=== PATIENT | female | born 1950 | race Caucasian/White ===

== ENCOUNTER 2017-09-06 10:26 | Observation (INO) | payer MEDICARE, OTHER, SELFPAY ==
[2017-09-06] VITALS (13 sets, daily range): BP systolic 102–158; BP diastolic 56–82; PULSE 61–95; RESP 16–18; TEMP 36.5–36.7; O2SAT 96–100; BMI 42.7; BMI 43.1
--- NOTE | 2017-09-06 10:44 | EKG12_ITS ---
Test Reason : SOB Blood Pressure : / mmHG Vent. Rate : 064 BPM Atrial Rate : 064 BPM P-R Int : 182 ms QRS Dur : 134 ms QT Int : 428 ms P-R-T Axes : -07 -45 096 degrees QTc Int : 441 ms Normal sinus rhythm Left axis deviation Left ventricular hypertrophy with QRS widening and repolarization abnormality Abnormal ECG Confirmed by GILMAR MCDONNELL, MAIN ([id number]), publishing editor FABRICE VILLA ([id number]) on 09/09/2017 8:46:03 AM Referred By: SANTOSH Confirmed By:MAIN SCHAFER MD
[2017-09-06 10:57] LABS: Mucous, Urine 0 SEEN /hpf (<or=2+); Red Blood Cells-Urine 0 SEEN /hpf (0-5); Squamous Epithelial Cells - UA 0 SEEN /hpf (5-10)
[2017-09-06 10:59] LABS: Color, Urine Yellow (Yellow); Glucose, Dipstick Normal (Normal); Ketone-Dipstick 5 mg/dl (Negative); Leukocyte Esterase-Dipstick 500 /ul (Negative); Nitrite-Dipstick Negative (Negative); Occult Blood-Urine 250 /ul (Negative); Protein-Dipstick 100 mg/dl (Negative); Specific Gravity, Urine 1.015 (1.002-1.030); Urine Bilirubin Dipstick Negative (Negative); Urine Clarity Cloudy (Clear); Urine Urobilinogen 4 mg/dl (Normal)
[2017-09-06] MEDS: Ipratropium/Albuterol Sulfate 3 ML AMPUL.NEB INHALATION ×4 (10:59→23:34)
[2017-09-06 11:09] LABS: Bacteria RARE /hpf (None Seen); White Blood Cells >100 SEEN /hpf (0-5)
[2017-09-06] MEDS: MethylPREDNISolone 125 MG/2 ML Vial IV (11:13)
[2017-09-06 11:15] LABS: Absolute Lymphocyte Count 1.13 X10^3/ul (0.83-4.51); Absolute Neutrophil Count 14.1 X10^3/uL (2.0-7.7); Basophil# 0.03 X10^3/uL; Basophil% 0.2 % (0-1); Eosinophil# 0.05 X10^3/uL; Eosinophils% 0.3 % (0-5); Hematocrit 32.7 % (37-47); Lymphocyte # 1.13 X10^3/ul (4.0); Lymphocyte % 6.7 % (19-41); Mean Corp Hgb Conc 33.6 g/gl (32-36); Mean Corpuscular Hgb 30.1 pg (27.0-32.0); Mean Corpuscular Volume 89.6 fL (81-99); Mean Platelet Vol. 9.5 fl (6.2-12.0); Monocyte% 8.9 % (0-10); Neutrophil # 14.08 X10^3/uL (2.7-7.7); Neutrophil % 83.4 % (47-70); POSITIVE COUNT NO; POSITIVE DIFFERENTIAL NO; POSITIVE MORPHOLOGY NO; Platelet Count 289 K/mm3 (150-450); RBC Distribution Width CV 14.5 % (11.6-14.6); RBC Distribution Width SD 47.9 fl (35.1-43.9); Red Blood Count 3.65 M/mm3 (4.2-5.4); White Blood Count 16.9 K/mm3 (4.4-11.0)
--- NOTE | 2017-09-06 11:22 | RAD_ITS ---
STUDY: X-RAY CHEST REASON FOR EXAM: Female, 67 years old. Cough, shortness of breath weakness history of [place] CABG stents TECHNIQUE: PA and lateral views of the chest. COMPARISON: April 22, 2016 chest x-ray FINDINGS: The lungs are clear and expanded. There is no demonstrated pleural abnormality. Sternal cerclage wires and vascular clips are present from a prior sternotomy and coronary artery bypass graft procedure (CABG). Normal mediastinum and alban. Normal visualized pulmonary arteries. There is atherosclerotic tortuosity of the aortic arch and descending thoracic aorta. There are diffuse degenerative changes of the visualized thoracic spine. Normal visualized ribs, clavicles, and shoulders. There is no demonstrated abnormality of the visualized soft tissue structures of the upper abdomen. RAD/Chest PA and Lateral IMPRESSION: Degenerative changes, as described above. Status post sternotomy. No demonstrated acute cardiopulmonary process. Electronically Signed: Iram Asif MD at 12:04 EDT Tel , Service support ,
[2017-09-06 11:28] LABS: Anion Gap 14 (5-15); BUN 39 mg/dL (7-18); BUN/Creat Ratio 21.9 RATIO (10-20); Calcium,Total 9.1 mg/dL (8.5-10.1); Chloride 109 mmol/L (98-107); Creatinine, Serum 1.78 mg/dL (0.55-1.02); EST Glomerular Filtration Rate 30 mL/min (>60); Est Glom Filt Rate - Afr Amer 36 mL/min (>60); Estimated Creatinine Clearance 23.92 ml/min; Glucose 154 mg/dL (74-106); Potassium 3.5 mmol/L (3.5-5.1); Sodium Level 139 mmol/L (136-145)
--- NOTE | 2017-09-06 11:54 | ED.VISSUMM ---
- ER Visit Summary Date of Service: 09/06/17 Chief Complaint: [] History of Present Illness: The patient is a 67 F ending with cough, shortness of breath, fever, chills, and body aches for the past 2 days. She was recently diagnosed with COPD and has been using breathing treatments at home without resolution of her symptoms. She denies chest pain or lower extremity pain/swelling. She denies a history of heart failure but does have a history of CABG and stent placement in the past. Physical Examination: She is in mild respiratory distress. She is speaking in broken sentences. She has wheezing in all lung bojorquez. No tenderness along the lower extremity venous system or palpable cords. Normal pulses in all extremities. Normal neurologic and mental status examination. No rash. No meningeal signs. Test Results: X-ray was negative for infiltrate. She has a significant leukocytosis and denies recent steroids. Urine had leukocytes but no bacteria. She denies current UTI symptoms and has no abdominal pain or flank pain. Flu swab was negative but clinically, she does have flulike symptoms so a false negative is certainly possible. She was given breathing treatments and feels somewhat better but is still quite dyspneic and unable to ambulate across the hallway without becoming severely distressed. She does not appear safe to be discharged home at this time. Her lactic acid is 2 so she was given IV fluids as well. The case was discussed with the hospitalist and she was admitted to PCU. Emergency Department Course and Treatment: Admit to PCU Treatment Plan: Admit Disposition: Admit Impression: Initial encounter COPD exacerbation This note was generated with [employer] dictation software. It may contain incorrect words, spelling, and punctuation that were not noted in review of the chart prior to signing ED Disposition - Plan for ED Patient: Disposition: Acute Care Hospital [facility] Chief Complaint: Shortness of Breath
--- NOTE | 2017-09-06 12:43 | ED.RN ---
PT WAS SOB AND EASILY TIRED WITH WALKING
--- NOTE | 2017-09-06 14:17 | HP.PCM_ITS ---
Problem List (1) Acute exacerbation of chronic obstructive pulmonary disease (COPD) Status: Acute (2) Hyperlipidemia Status: Chronic Qualifiers: Hyperlipidemia type: unspecified Qualified Code(s): E78.5 - Hyperlipidemia , unspecified (3) Hypertension Status: Chronic Qualifiers: Hypertension type: essential hypertension Qualified Code(s): I10 - Essential (primary) hypertension (4) S/P coronary artery stent placement Status: Chronic (5) COPD (chronic obstructive pulmonary disease) Status: Chronic Qualifiers: Emphysema type: unspecified History of Present Illness Date of Admission: 09/06/17 Chief Complaint: Shortness of breath, chills, generalised aches - 1 week The patient is a 67 year old F with past medical history of CAD status post CABG , stents, COPD, hypertension, hyperlipidemia comes in with a week history of generalized fatigue, aches, and progressive shortness of breath associated with cough. Patient denied any runny nose, sore throat, chest pain, dizziness, or palpitations. She denied any sick contacts. She however feels very short of breath rest and worse with exertion. Has not been able to eat or drink much since. Vitals in the ED was stable, patient was said to be very dyspneic on exertion even though SPO2 stayed above 92. CXR is negative for any acute cardiopulmonary process Past Medical History Past Medical History (Chronic Problems): Chronic Problems COPD (chronic obstructive pulmonary disease) (Chronic) Hyperlipidemia (Chronic) Hypertension (Chronic) S/P coronary artery stent placement (Chronic) Allergies promethazine HCl [From Phenergan] Allergy (Verified 09/06/17 10:27) Itching Home Medications: Ambulatory Orders Medication Instructions Recorded Aspirin E.C. [Ecotrin] 81 mg PO DAILY@0800 08/02/13 Furosemide [Lasix] 20 mg PO DAILY 08/02/13 Metoprolol Tartrate [Lopressor 50 mg PO BID 08/02/13 (beta uche)] Nitroglycerin [Nitrostat] 0.4 mg SUBLINGUAL Q5M PRN 08/02/13 Ramipril [Altace] 10 mg PO BID 08/02/13 Simvastatin [Zocor] 40 mg PO QHS 08/02/13 Spironolactone [Aldactone] 25 mg PO DAILY 08/02/13 Venlafaxine HCl [Effexor] 37.5 mg PO BID 08/02/13 Venlafaxine HCl [Effexor] 100 mg PO BID 10/10/14 Clopidogrel Bisulfate [Plavix] 75 mg PO DAILY 05/24/16 Pantoprazole Sodium [Protonix] 40 mg PO DAILY 05/24/16 Surgical History: adenoidectomy, cholecystectomy, herniorrhaphy Psychiatric History: No pertinent psych hx [employer] History: No pertinent P[employer] history Lives: With Family Smoking Status: Never smoker Tobacco Use: Non-smoker Alcohol: None Drugs: None - *Family History Maternal History Items: Cancer - lung, Heart Disease Paternal History Items: Cancer - liver Review of Systems Constitutional: Reports: Anorexia, Chills, Malaise, Weakness, Fatigue. Denies: Fever, Weight Change Eyes: Denies: Blurred vision, Cataracts, Conjunctivae Inflammation, Pain, Redness, Vision Change HEENT: Denies: Difficulty Hearing, Difficulty Swallowing, Head Aches, Hearing Changes, Sinus Congestion, Sinus Drainage, Sore Throat Cardiovascular: Denies: Chest Pain, Claudication, Chest Pressure, Orthopnea, Palpitations, Paroxysmal Noc. Dyspnea, Syncope Respiratory: Denies: Cough, Shortness of breath at rest, Sputum production Gastrointestinal: Denies: Abdominal Pain, Constipation, Hematemesis, Hematochezia, Nausea, Vomiting Genitourinary: Denies: Dysuria, Frequency Gynecological: Denies: Breast symptoms, Excessively long or heavy periods Musculoskeletal: Reports: Muscle pain. Denies: Hand Pain, Joint Pain, Joint stiffness, Joint swelling, Joint Tenderness Skin: Denies: Dryness, Jaundice, Rash, Wounds Neurological: Denies: Balance problems, Difficulty swallowing, Focal weakness, Numbness, Tingling, Tremor, Seizures Psychiatric: Denies: Anxiety, Depression, Homicidal Ideations, Suicidal Ideations Hematologic/ Lymphatic: Denies: Easy Bruising, Easy Bleeding VTE Information - Inpt Only VTE Present on Admission: No VTE Pharm Prophylaxis ordered?: Yes Patient Problems: Active and Suspected Problems Acute exacerbation of chronic obstructive pulmonary disease (COPD) (Acute) - Physical Exam General: Alert, Oriented x3, Cooperative, No apparent distress HEENT: Atraumatic, PERRLA, EOMI, Normocephalic Oral: Moist Mucosa Neck: Supple Lungs: Clear to auscultation, Normal air movement Cardiovascular: Regular rate, Regular Rhythm, Normal S1, Normal S2, No murmurs Abdomen: Bowel Sounds Present, Soft, Non Tender, Non-Distended, No Hepato- splenomegaly Extremities: No edema Skin: No rashes, No breakdown Musculoskeletal: No Tenderness to Palpation of Joints or Extremities Lymphatic: No Cervical, Supraclavicular, or Inguinal Adenopathy Neurological: Cranial nerves II-XII grossly intact Psych/Mental Status: Normal Affect, Appropriate Vital Signs Temp Pulse Resp BP Pulse Ox 98.0 F 61 18 102/56 L 96 09/06/17 10:27 09/06/17 12:19 09/06/17 12:19 09/06/17 12:19 09/06/17 12:19 Oxygen Delivery Method Room Air Weight: 106.141 kg Body Mass Index (BMI) 42.7 Microbiology Past 72 Hours 09/06/17 11:15 Influenza Types A,B Direct FA (SHANA) - Final Mucosa - Nasopharyngeal Laboratory Tests Past 24 Hrs 09/06/17 09/06/17 09/06/17 10:40 11:00 11:00 WBC 16.9 H RBC 3.65 L Hgb 11.0 L Hct 32.7 L MCV 89.6 MCH 30.1 MCHC 33.6 RDW 14.5 RDW Differential 47.9 H Plt Count 289 MPV 9.5 Immature Gran % (Auto) 0.500 Neut % (Auto) 83.4 H Lymph % (Auto) 6.7 L [place] % (Auto) 8.9 Eos % (Auto) 0.3 Baso % (Auto) 0.2 Absolute Neuts (auto) 14.1 H Absolute Lymphs (auto) 1.13 Total Counted Not Reportable Sodium 139 Potassium 3.5 Chloride 109 H Carbon Dioxide 16.0 L Anion Gap 14 BUN 39 H Creatinine 1.78 H Estim Creat Clear Calc 23.92 Est GFR (MDRD) Af Amer 36 L Est GFR (MDRD) Non-Af 30 L BUN/Creatinine Ratio 21.9 H Glucose 154 H Lactic Acid Calcium 9.1 Troponin I < 0.02 B-Natriuretic Peptide Urine Color Yellow Urine Clarity Cloudy Urine pH 6.0 Ur Specific [place] 1.015 Urine Protein 100 H Urine Glucose (UA) Normal Urine Ketones 5 H Urine Occult Blood 250 H Urine Nitrite Negative Urine Bilirubin Negative Urine Urobilinogen 4 H Ur Leukocyte Esterase 500 H Urine RBC 0 SEEN Urine WBC >100 SEEN Ur Squamous Epith Cells 0 SEEN Urine Bacteria RARE Urine Mucus 0 SEEN 09/06/17 09/06/17 11:00 13:04 WBC RBC Hgb Hct MCV MCH MCHC RDW RDW Differential Plt Count MPV Immature Gran % (Auto) Neut % (Auto) Lymph % (Auto) [place] % (Auto) Eos % (Auto) Baso % (Auto) Absolute Neuts (auto) Absolute Lymphs (auto) Total Counted Sodium Potassium Chloride Carbon Dioxide Anion Gap BUN Creatinine Estim Creat Clear Calc Est GFR (MDRD) Af Amer Est GFR (MDRD) Non-Af BUN/Creatinine Ratio Glucose Lactic Acid 2.0 Calcium Troponin I B-Natriuretic Peptide 218.0 H Urine Color Urine Clarity Urine pH Ur Specific [place] Urine Protein Urine Glucose (UA) Urine Ketones Urine Occult Blood Urine Nitrite Urine Bilirubin Urine Urobilinogen Ur Leukocyte Esterase Urine RBC Urine WBC Ur Squamous Epith Cells Urine Bacteria Urine Mucus Assessment/Plan Active and Suspected Problems Acute exacerbation of chronic obstructive pulmonary disease (COPD) (Acute) 67 year old F with past medical history of CAD status post CABG, stents, COPD, hypertension, hyperlipidemia comes in with a week history of generalized fatigue , aches, and progressive shortness of breath associated with cough. 1. Acute COPD exacerbation, mild, patient will be admitted to observation, breathing treatments, IV steroids, IV Levaquin 2. Leucocytosis, unclear etiology, repeat chest x-ray in a.m. to rule out pneumonia 3. Acute kidney injury in a patient with CKD stage III, secondary to dehydration , would give IV fluids, repeat BMP in a.m. 4. Non-gap metabolic acidosis secondary to acute kidney injury, repeat labs in am 5. CAD s/p CABG, stents, on aspirin, Plavix, beta-blockers, nitro as needed 6. Hypertension, on spironolactone, ramipril, both of which are on hold on account of acute kidney injury,, would continue on metoprolol, will continue to monitor vitals closely, would add hydralazine as needed. 7. Hyperlipidemia, on statins which is on hold on account of acute kidney injury, will resume when renal function improves 8. DVT prophylaxis with heparin subcu Code Visit Inpatient E&M: 93117 Init Hosp L2
--- NOTE | 2017-09-06 14:18 | NURSING ---
MED SURG ACUTE COPD EXAC PAINTSIL
--- NOTE | 2017-09-06 14:20 | NURSING ---
DR DOUGLAS IN ER
[2017-09-06] MEDS: 0.9% Normal Saline 1,000 ML 75 ML IV (16:06)
[2017-09-06] MEDS: 0.9% NaCl Peripheral Flush Adult/Peds IV (16:08)
[2017-09-06 17:06] LABS: Reflex Lactate? Y
[2017-09-06] MEDS: levoFLOXacin IV 500 MG/100 ML BAG 100 MG IV (17:36)
[2017-09-06] MEDS: guaiFENesin 600 MG Tablet PO (22:49)
[2017-09-06] MEDS: Venlafaxine HCl 75 MG Tablet 37.5 MG PO (22:49)
[2017-09-06] MEDS: Metoprolol Tartrate 50 MG Tablet PO (22:50)
[2017-09-07] VITALS (12 sets, daily range): BP systolic 111–132; BP diastolic 58–70; PULSE 67–95; RESP 16–18; TEMP 36.7–37.1; O2SAT 90–100
[2017-09-07] MEDS: LORazepam 0.5 MG Tablet PO ×2 (01:00→12:01)
[2017-09-07] MEDS: Ipratropium/Albuterol Sulfate 3 ML AMPUL.NEB INHALATION ×2 (03:02→07:04)
[2017-09-07 06:51] LABS: Absolute Lymphocyte Count 0.96 X10^3/ul (0.83-4.51); Absolute Neutrophil Count 13.6 X10^3/uL (2.0-7.7); Basophil# 0.02 X10^3/uL; Basophil% 0.1 % (0-1); Hematocrit 29.5 % (37-47); Hemoglobin 10.1 g/dl (12.0-15.0); Lymphocyte # 0.96 X10^3/ul (4.0); Lymphocyte % 6.2 % (19-41); Mean Corp Hgb Conc 34.2 g/gl (32-36); Mean Corpuscular Hgb 30.4 pg (27.0-32.0); Mean Corpuscular Volume 88.9 fL (81-99); Monocyte# 0.78 X10^3/uL; Monocyte% 5.1 % (0-10); Neutrophil # 13.56 X10^3/uL (2.7-7.7); Neutrophil % 87.8 % (47-70); Platelet Count 331 K/mm3 (150-450); RBC Distribution Width CV 14.3 % (11.6-14.6); RBC Distribution Width SD 45.3 fl (35.1-43.9); Red Blood Count 3.32 M/mm3 (4.2-5.4); White Blood Count 15.4 K/mm3 (4.4-11.0)
[2017-09-07 06:54] LABS: POSITIVE COUNT NO; POSITIVE DIFFERENTIAL NO; POSITIVE MORPHOLOGY NO
[2017-09-07 07:21] LABS: ALB/GLOB Ratio 0.5 RATIO (0.9-2.4); AST(SGOT) 24 U/L (15-37); Alanine Aminotransfer ALT/SGPT 50 U/L (13-56); Albumin, Serum 2.3 g/dL (3.2-5.0); Alkaline Phosphatase 175 U/L (45-117); Anion Gap 13 (5-15); BUN 38 mg/dL (7-18); BUN/Creat Ratio 25.3 RATIO (10-20); Calcium,Total 8.6 mg/dL (8.5-10.1); Chloride 107 mmol/L (98-107); EST Glomerular Filtration Rate 37 mL/min (>60); Est Glom Filt Rate - Afr Amer 44 mL/min (>60); Estimated Creatinine Clearance 28.39 ml/min; Globulin 4.2 g/dL (2.2-4.2); Glucose 197 mg/dL (74-106); Potassium 3.2 mmol/L (3.5-5.1); Protein, Total 6.5 g/dL (6.4-8.2); Sodium Level 136 mmol/L (136-145)
--- NOTE | 2017-09-07 07:58 | RAD_ITS ---
STUDY: X-RAY CHEST REASON FOR EXAM: Female, 67 years old. Fever TECHNIQUE: PA and lateral views of the chest. COMPARISON: September 06, 2017, April 22, 2016, September 30, 2014. Chest x-ray FINDINGS: The lung markings appear relatively stable when compared to the prior study. The lungs are somewhat hyperinflated and hyperlucent. There is no demonstrated pleural abnormality. Sternal cerclage wires are present from a prior sternotomy. Normal mediastinum and alban. Normal visualized pulmonary arteries. Normal visualized aortic arch and descending thoracic aorta. Normal visualized thoracic spine. Normal visualized ribs, clavicles, and shoulders. There is no demonstrated abnormality of the visualized soft tissue structures of the upper abdomen. RAD/Chest PA and Lateral IMPRESSION: Status post sternotomy. The lung markings appear Stable with slight blunting of the right cardiophrenic angle which likely represents focal atelectasis and/or prominent cardiac fat pad. No visualized acute focal infiltrate. Electronically Signed: Iram Asif MD at 12:14 EDT Tel , Service support ,
[2017-09-07] MEDS: Aspirin E.C. 81 MG Tablet PO (08:49)
[2017-09-07] MEDS: Metoprolol Tartrate 50 MG Tablet PO (09:32)
[2017-09-07] MEDS: Venlafaxine HCl 75 MG Tablet 37.5 MG PO (09:33)
[2017-09-07] MEDS: guaiFENesin 600 MG Tablet PO (09:34)
[2017-09-07] MEDS: Pantoprazole Sodium 40 MG Tablet PO (09:35)
[2017-09-07] MEDS: Clopidogrel Bisulfate 75 MG Tablet PO (09:35)
--- NOTE | 2017-09-07 13:13 | DCINST_ITS ---
- Discharge Diagnoses Current Active Problems: Current Active and Chronic Problems Acute exacerbation of chronic obstructive pulmonary disease (COPD) (Acute) COPD (chronic obstructive pulmonary disease) (Chronic) Reason(s) for Visit for Discharge Instructions: Shortness of breath You will use the following diet at home:: Calorie/Carbohydrate Controlled ( specify 1200, 1400, etc), Cardiac Your food should be the consistency of: Regular Your liquids should be the consistency of: Regular/Thin Discharge Activity: Return to Normal Activity Additional Instructions: Take all your medications as prescribed. Continue to hydrate your self. Do not take your water pill or lasix until you have repeated your blood work and your PCP gives you the ok to continue. Continue to use incentive spirometer Allergies/Adverse Reactions: Allergies promethazine HCl [From Phenergan] Allergy (Verified 09/06/17 10:27) Itching Medications to take at Discharge Aspirin E.C. [Ecotrin] 81 mg PO DAILY@0800 08/02/13 Metoprolol Tartrate [Lopressor (beta uche)] 50 mg PO BID 08/02/13 Nitroglycerin [Nitrostat] 0.4 mg SUBLINGUAL Q5M PRN 08/02/13 Ramipril [Altace] 10 mg PO BID 08/02/13 Simvastatin [Zocor] 40 mg PO QHS 08/02/13 Venlafaxine HCl [Effexor] 37.5 mg PO BID 08/02/13 Venlafaxine HCl [Effexor] 100 mg PO BID 10/10/14 Clopidogrel Bisulfate [Plavix] 75 mg PO DAILY 05/24/16 Pantoprazole Sodium [Protonix] 40 mg PO DAILY 05/24/16 Guaifenesin [Mucinex] 600 mg PO BID #10 tab 09/07/17 Prednisone [Deltasone] 40 mg PO DAILY #4 tab 09/07/17 The following prescriptions were given: Prednisone [Deltasone] 40 mg PO DAILY #4 tab Guaifenesin [Mucinex] 600 mg PO BID #10 tab Orders to be completed after discharge: Basic Metabolic Profile (BMP) Time Frame: 1 Week, Location: Laboratory CBC W/Diff, Automated Time Frame: 1 Week, Location: Laboratory Primary Care Physician: Evangelist Henriquez DO [Primary Care Provider] - Please follow up with your Primary Care Physician in: within 2 weeks Proposed Discharge Date: 09/07/17
--- NOTE | 2017-09-07 13:14 | DS.PCM_ITS ---
Discharge Date and Diagnosis Date of Admission: 09/06/17 Date of Discharge: 09/07/17 - Primary Discharge Diagnosis Active and Suspected Problems Acute exacerbation of chronic obstructive pulmonary disease (COPD) (Acute) - Secondary Discharge Diagnosis Chronic Problems COPD (chronic obstructive pulmonary disease) (Chronic) Hyperlipidemia (Chronic) Hypertension (Chronic) S/P coronary artery stent placement (Chronic) Hospital Course and Treatment Imaging Results: 09/07/17 07:58 Chest PA and Lateral [RAD] Urgent None Operations: None Procedures: None Summary of Care Provided: 67 year old F with past medical history of CAD status post CABG, stents, COPD, hypertension, hyperlipidemia comes in with a week history of generalized fatigue , aches, and progressive shortness of breath associated with cough. 1. Acute COPD exacerbation, mild, admitted under observation, managed on breathing treatments, IV steroids, did not require oxygen, did not qualify for home oxygen. Discharged on prednisone to make total of 5 days of steroids. 2. Leucocytosis, unclear etiology, chest x-ray ruled out pneumonia, improved, will continue to monitor. 3. Acute kidney injury in a patient with CKD stage III, secondary to dehydration , improved with IV fluids, needs to repeat BMP in the outpatient. Lasix held at discharge, needs to be re-evaluated and restarted if needed. 4. Non-gap metabolic acidosis secondary to acute kidney injury, resolved 5. CAD s/p CABG, stents, on aspirin, Plavix, beta-blockers, nitro as needed 6. Hypertension, on spironolactone, ramipril, both of which were on account of acute kidney injury, resumed ramipril, spironolactone and continued to hold lasix. 7. Hyperlipidemia, on statins Discharge Diet: No Restrictions Discharge Activity: Return to Normal Activity Home Medications: Medications to take at Discharge Aspirin E.C. [Ecotrin] 81 mg PO DAILY@0800 08/02/13 Metoprolol Tartrate [Lopressor (beta uche)] 50 mg PO BID 08/02/13 Nitroglycerin [Nitrostat] 0.4 mg SUBLINGUAL Q5M PRN 08/02/13 Ramipril [Altace] 10 mg PO BID 08/02/13 Simvastatin [Zocor] 40 mg PO QHS 08/02/13 Venlafaxine HCl [Effexor] 37.5 mg PO BID 08/02/13 Venlafaxine HCl [Effexor] 100 mg PO BID 10/10/14 Clopidogrel Bisulfate [Plavix] 75 mg PO DAILY 05/24/16 Pantoprazole Sodium [Protonix] 40 mg PO DAILY 05/24/16 Guaifenesin [Mucinex] 600 mg PO BID #10 tab 09/07/17 Prednisone [Deltasone] 40 mg PO DAILY #4 tab 09/07/17 Following Prescrptions Were Given to Patient: Prednisone [Deltasone] 40 mg PO DAILY #4 tab Guaifenesin [Mucinex] 600 mg PO BID #10 tab Primary Care Physician: Evangelist Henriquez DO [Primary Care Provider] - Please follow up with your Primary Care Physician in: within 2 weeks Disposition: Home Minutes spent on discharge:: 25 Patient Condition:: Stable Medical Necessity - Tobacco Use Smoking Status: Never smoker Tobacco Use: Non-smoker Meaningful Use Info Meaningful Use Diagnoses (Choose all that apply): None applicable Code Visit Inpatient E&M: 19425 Disch Hosp
== END 2017-09-07 14:54 | disposition home or self-care (01) ==
LOC: ED 12:15 → MS3 14:48
PROVIDERS: Admitting Provider Internal Medicine; Emergency Provider Emergency Medicine; Family Provider Student in an Organized Health Care Education/Training Program; PCP Student in an Organized Health Care Education/Training Program; Visit Provider Internal Medicine
DX: J44.1 Chronic obstructive pulmonary disease with (acute) exacerbation (principal); E78.5 Hyperlipidemia, unspecified; I12.9 Hypertensive chronic kidney disease with stage 1 through stage 4 chronic kidney disease, or unspecified chronic kidney disease; I25.10 Atherosclerotic heart disease of native coronary artery without angina pectoris; N18.3 Chronic kidney disease, stage 3 (moderate); N17.9 Acute kidney failure, unspecified; E87.2 Acidosis; D72.829 Elevated white blood cell count, unspecified; Z79.82 Long term (current) use of aspirin; Z79.899 Other long term (current) drug therapy; Z79.02 Long term (current) use of antithrombotics/antiplatelets; Z95.1 Presence of aortocoronary bypass graft; Z95.5 Presence of coronary angioplasty implant and graft
CPT/HCPCS: 36415; 71046; 80048; 80053; 81001; 83605; 83880; 84484; 85025; 87077; 87086; 87088; 87186; 87633; 87804; 93005; 94640; 96361; 96365; 96372; 96375; 96376; 97802; 99218; 99285; J7030; A4216; G0378

== ENCOUNTER → 2017-09-11 10:01 | Outpatient (CLI) | payer MEDICARE, OTHER, SELFPAY ==
[2017-09-11 11:21] LABS: Anion Gap 10 (5-15); BUN 31 mg/dL (7-18); BUN/Creat Ratio 24.8 RATIO (10-20); Calcium,Total 9.2 mg/dL (8.5-10.1); Chloride 111 mmol/L (98-107); Creatinine, Serum 1.25 mg/dL (0.55-1.02); EST Glomerular Filtration Rate 45 mL/min (>60); Est Glom Filt Rate - Afr Amer 55 mL/min (>60); Glucose 105 mg/dL (74-106); Potassium 3.7 mmol/L (3.5-5.1); Sodium Level 140 mmol/L (136-145)
[2017-09-11 11:36] LABS: Hematocrit 34.5 % (37-47); Hemoglobin 11.5 g/dl (12.0-15.0); Mean Corp Hgb Conc 33.3 g/gl (32-36); Mean Corpuscular Hgb 30.3 pg (27.0-32.0); Mean Platelet Vol. 9.1 fl (6.2-12.0); Platelet Count 408 K/mm3 (150-450); RBC Distribution Width CV 14.4 % (11.6-14.6); RBC Distribution Width SD 47.5 fl (35.1-43.9); Red Blood Count 3.79 M/mm3 (4.2-5.4); White Blood Count 13.9 K/mm3 (4.4-11.0)
[2017-09-11 11:37] LABS: Differential Indicated MANUAL DIFF; POSITIVE COUNT YES; POSITIVE DIFFERENTIAL YES; POSITIVE MORPHOLOGY YES
[2017-09-11 11:52] LABS: Eosinophil 4 % (0-5); Lymphocyte 43 % (19-41); Metamyelocyte 2 % (0-1); Monocyte 2 % (0-10); Neutrophil-Band 5 % (0-5); Neutrophil-Segmented 44 % (47-70); Total Cells Counted 100 (MANUAL DIFF)
[2017-09-11 11:53] LABS: Anisocytosis 1+; Reactive Lymphocyte 2+
[2017-09-11 11:56] LABS: Absolute Neutrophil Count 6.8 X10^3/uL (2.0-7.7); Neutrophil # 6.82 X10^3/uL (2.7-7.7)
[2017-09-11 11:57] LABS: Absolute Lymphocyte Count 5.99 X10^3/ul (0.83-4.51); Lymphocyte # 5.99 X10^3/ul (4.0)
[2017-09-15 09:58] LABS: Pathologist Review Reviewed
== END ==
PROVIDERS: Family Provider Student in an Organized Health Care Education/Training Program; PCP Student in an Organized Health Care Education/Training Program; Visit Provider Internal Medicine
DX: N17.9 Acute kidney failure, unspecified (principal); D72.829 Elevated white blood cell count, unspecified
CPT/HCPCS: 36415; 80048; 85025

== ENCOUNTER → 2017-10-02 09:36 | Outpatient (CLI) | payer MEDICARE, OTHER, SELFPAY ==
--- NOTE | 2017-10-03 07:49 | PFTCOMP ---
COMPLETE PULMONARY FUNCTION TEST INTERPRETATION Brief HPI: Patient is a 67 year old female, currently under the care of Angelica Saldaña, who presents to [facility] for complete pulmonary function tests secondary to diagnosis of COPD. Respiratory therapist reports good effort and reproducible results. Interpretation: Forced expiration spirometry shows no large airways obstructive ventilatory defect with an FEV1 of 89% predicted. There is no significant bronchodilator response by ATS criteria. Spirograms are of good quality and plateau normally. The respiratory flow volume loop shows a normal pattern. Lung volumes by body plethysmography show a normal total lung capacity at 4.98 L, 108% predicted. All other lung volumes are within normal limits. Diffusion capacity by carbon monoxide is decreased at 56% predicted. The airway resistance is normal. No previous pulmonary function tests were available for review. Impression: Isolated reduction in diffusing capacity consistent with possible pulmonary vascular disorder. There are some stigmata of small airways disease also noted.
== END ==
PROVIDERS: Family Provider Student in an Organized Health Care Education/Training Program; PCP Student in an Organized Health Care Education/Training Program; Visit Provider Nurse Practitioner Acute Care
DX: J44.9 Chronic obstructive pulmonary disease, unspecified (principal)
CPT/HCPCS: 94060; 94726; 94729

== ENCOUNTER → 2017-10-06 08:46 | Outpatient (CLI) | payer MEDICARE, OTHER, SELFPAY ==
[2017-10-06 09:32] VITALS: PULSE 52; PULSE 60; PULSE 72; PULSE 80; PULSE 81; PULSE 82; PULSE 83; PULSE 84; O2SAT 93; O2SAT 94; O2SAT 95
--- NOTE | 2017-10-06 14:39 | WT_ITS ---
PSN 6 Minute Walk Test - 6 Minute Walk Test 6 Minute Walk Test: 6 Minute Walk Test PSN:6-Minute Walk Test Start: 10/06/17 09: 31 Freq: Status: Active Protocol: [id number].[id number] Document 10/06/17 09:32 MARKIE (Rec: 10/06/17 09:34 MARKIE [id number]) 6 Minute Walk Test Date Performed 10/06/17 Time Performed 09:05 Height 5 ft 3 in Weight: 230 lb Weight in Pounds 230.[address]: Nakul Li Assistive device used: None Pre-test Oxygen Delivery Method Room Air Pulse Ox (%) 94 Pulse Rate (60-100 beats/min) 52 L Dyspnea [place] Scale (0-10) 0 Exertion [place] Scale (6-20) 6 1st minute Oxygen Delivery Method Room Air Pulse Ox (%) 94 Pulse Rate (60-100 beats/min) 72 2nd minute Oxygen Delivery Method Room Air Pulse Ox (%) 93 Pulse Rate (60-100 beats/min) 80 3rd minute Oxygen Delivery Method Room Air Pulse Ox (%) 93 Pulse Rate (60-100 beats/min) 83 4th minute Oxygen Delivery Method Room Air Pulse Ox (%) 93 Pulse Rate (60-100 beats/min) 84 5th minute Oxygen Delivery Method Room Air Pulse Ox (%) 94 Pulse Rate (60-100 beats/min) 81 6th minute Oxygen Delivery Method Room Air Pulse Ox (%) 93 Pulse Rate (60-100 beats/min) 82 Dyspnea [place] Scale (0-10) 3 Exertion [place] Scale (6-20) 13 Post-test Oxygen Delivery Method Room Air Pulse Ox (%) 95 Pulse Rate (60-100 beats/min) 60 Full Laps Walked 13 Partial Lap, Number of Tiles Walked 40 Total Distance Walked (ft) 807 - Interpretation Interpretation: The patient ambulated 870 feet over the course of 6 minutes beginning on room air without assistive devices or breaks. Pretesting oxygen saturation was noted to be 94% on room air. With ambulation, the uriel oxygen saturation was 93%. There was no significant exertional oxygen desaturation. - Recommendations Recommendations: There is no indication for the use of supplemental oxygen at this time.
== END ==
PROVIDERS: Family Provider Student in an Organized Health Care Education/Training Program; PCP Student in an Organized Health Care Education/Training Program; Visit Provider Nurse Practitioner Acute Care
DX: J44.9 Chronic obstructive pulmonary disease, unspecified (principal)
CPT/HCPCS: 94618

== ENCOUNTER 2017-10-17 06:59 | Inpatient (IN) | payer MEDICARE, OTHER, SELFPAY ==
[2017-10-17] VITALS (10 sets, daily range): BP systolic 105–181; BP diastolic 46–68; PULSE 63–80; RESP 16–18; TEMP 36.6–37.1; O2SAT 93–98; BMI 43.3; BMI 40.5
--- NOTE | 2017-10-17 07:21 | CT_ITS ---
STUDY: CT ABDOMEN AND PELVIS WITHOUT CONTRAST REASON FOR EXAM: Female, 67 years old. Right flank pain. History of kidney stones. RADIATION DOSAGE (If Supplied By Facility): CTDIvol = ( 22.80 ) mGy, DLP = ( 1150.41 ) mGycm TECHNIQUE: Transaxial images were obtained from the dome of the diaphragm to the symphysis pubis without oral contrast, and without intravenous contrast. Sagittal and coronal images were reconstructed. Individualized dose optimization techniques were used for this CT. COMPARISON: Comparison is made with prior study dated March 24, 2009. FINDINGS: Stable minimal increased linear markings at the lung bases suggestive of scarring. The visualized portions of the heart are within normal limits. Normal liver. The patient is status post cholecystectomy. Normal spleen. Normal pancreas. There is a small, circumscribed, smooth, low attenuation left adrenal mass, consistent with an adrenal adenoma. This measures 1.6 cm. There is hypertrophy of the right adrenal gland. The right kidney is enlarged. Right perinephric stranding. Moderate-sized right hydronephrosis due to a 3 mm calculus in the proximal portion of the right ureter. Intrarenal calculi. The largest measures 1 cm and is in the lower pole. There is also evidence of a 1 cm calculus in the right renal pelvis. Left nonobstructive intrarenal calculi. The largest measures 1 cm. Normal visualized stomach. Normal small intestine. There are multiple colonic diverticula consistent with diverticulosis. There is non-visualization of the appendix. There is diffuse atherosclerotic calcification of the abdominal aorta and its major visceral branches, without a demonstrated aneurysm. Normal inferior vena cava. Normal retroperitoneum. Normal urinary bladder. There is absence of the uterus consistent with a prior hysterectomy. There is evidence of prior ventral hernia repair with mesh. There are degenerative changes of the visualized lumbar spine. CT/Abdomen/Pelvis without Cont IMPRESSION: Enlargement of the right kidney with moderate right hydronephrosis and proximal right hydroureter due to a 3 mm calculus in the proximal portion of the right ureter. Multiple bilateral nonobstructive intrarenal calculi. Sigmoid diverticulosis. Electronically Signed: Huseyin Morton MD at 9:01 EDT Tel [phone], Service support ,
--- NOTE | 2017-10-17 07:24 | ED.VISSUMM ---
- ER Visit Summary Date of Service: 10/17/17 Chief Complaint: Right flank pain History of Present Illness: The patient is a 67 F history of COPD, CAD with cardiac stents on Plavix and aspirin, hypertension and CHF. Status post cholecystectomy and total hysterectomy. Patient states that she woke around 6 AM this morning with low right flank pain radiating into her back. Associated nausea but no vomiting or diarrhea. No fever or dysuria. States she felt fine yesterday. Denies any trauma. She states she has never had a kidney stone before in the past. Physical Examination: Well-appearing older female. Vital signs are stable afebrile. H EENT exam unremarkable. Neck nontender. Lungs clear to auscultation bilaterally. Heart get her rate and rhythm. Abdomen is soft and nontender. Nondistended. Normal bowel sounds. No signs of hernia or mass. No pulsatile mass. No signs of obstruction. The right lower quadrant is nontender. Back exam nontender. No CVA tenderness. She is moving all 4 extremities. Neurovascular intact. Neurologically she is awake and alert. Test Results: CBC normal white count with a chronic anemia hemoglobin of 11. BMP showed renal insufficiency which is also chronic with a creatinine 1.6. UA was consistent with a UTI with greater than 100 white cells and 4+ bacteria. A culture was sent. CT flank showed bilateral renal stones with a proximal right 3 mm right ureteral calculi with hydronephrosis. Emergency Department Course and Treatment: Nonreproducible right flank pain. Patient will be treated with IV morphine and Zofran. Patient was given a second dose of morphine. Also started on IV Rocephin for the UTI any obstructing stone. Treatment Plan: Given the stone is only 3 mm it should pass. Patient prefers to be admitted here to [facility]. And not transferred. I spoke to Dr. harper who will accept the patient for admission. Neurology is not available at this time. Disposition: Discharge Impression: Acute right flank pain secondary to acute right 3 mm ureteral calculi with hydro-nephrosis Acute UTI Chronic anemia and chronic mild renal insufficiency History of CAD, cardiac stents and prior double bypass. History of CHF and COPD. This note was generated with [employer] software. It may contain incorrect words, spelling, and punctuation that were not noted in review of the chart prior to signing ED Disposition - Plan for ED Patient: Chief Complaint: Complaint Referrals: Evangelist Henriquez DO [Primary Care Provider] -
[2017-10-17] MEDS: Morphine 4 MG/ML Syringe 6 MG IV ×2 (07:41→09:11)
[2017-10-17] MEDS: Ondansetron 4 MG/2 ML Vial IV (07:42)
[2017-10-17 08:06] LABS: Anion Gap 10 (5-15); BUN 22 mg/dL (7-18); BUN/Creat Ratio 13.3 RATIO (10-20); Calcium,Total 8.7 mg/dL (8.5-10.1); Chloride 108 mmol/L (98-107); Creatinine, Serum 1.65 mg/dL (0.55-1.02); EST Glomerular Filtration Rate 33 mL/min (>60); Est Glom Filt Rate - Afr Amer 40 mL/min (>60); Estimated Creatinine Clearance 26.99 ml/min; Glucose 131 mg/dL (74-106); Potassium 3.1 mmol/L (3.5-5.1); Sodium Level 140 mmol/L (136-145)
[2017-10-17 08:11] LABS: Mucous, Urine 0 SEEN /hpf (<or=2+)
[2017-10-17 08:18] LABS: Color, Urine Yellow (Yellow); Glucose, Dipstick Normal (Normal); Ketone-Dipstick Negative (Negative); Leukocyte Esterase-Dipstick 500 /ul (Negative); Nitrite-Dipstick Negative (Negative); Occult Blood-Urine 25 /ul (Negative); Protein-Dipstick 30 mg/dl (Negative); Specific Gravity, Urine 1.015 (1.002-1.030); Urine Bilirubin Dipstick Negative (Negative); Urine Clarity Cloudy (Clear); Urine Urobilinogen Normal (Normal)
[2017-10-17 08:20] LABS: Absolute Lymphocyte Count 0.54 X10^3/ul (0.83-4.51); Absolute Neutrophil Count 9.5 X10^3/uL (2.0-7.7); Basophil# 0.03 X10^3/uL; Basophil% 0.3 % (0-1); Eosinophil# 0.08 X10^3/uL; Eosinophils% 0.8 % (0-5); Hematocrit 32.9 % (37-47); Lymphocyte # 0.54 X10^3/ul (4.0); Lymphocyte % 5.2 % (19-41); Mean Corp Hgb Conc 33.4 g/gl (32-36); Mean Corpuscular Hgb 30.4 pg (27.0-32.0); Mean Corpuscular Volume 90.9 fL (81-99); Mean Platelet Vol. 9.6 fl (6.2-12.0); Monocyte# 0.09 X10^3/uL; Monocyte% 0.9 % (0-10); Neutrophil # 9.48 X10^3/uL (2.7-7.7); Neutrophil % 91.1 % (47-70); Platelet Count 295 K/mm3 (150-450); RBC Distribution Width CV 14.5 % (11.6-14.6); RBC Distribution Width SD 47.1 fl (35.1-43.9); Red Blood Count 3.62 M/mm3 (4.2-5.4); White Blood Count 10.4 K/mm3 (4.4-11.0)
[2017-10-17 08:21] LABS: POSITIVE COUNT NO; POSITIVE MORPHOLOGY NO
[2017-10-17 08:22] LABS: Differential Indicated SCAN CRITERIA MET; POSITIVE DIFFERENTIAL YES
[2017-10-17 08:27] LABS: White Blood Cells >100 SEEN /hpf (0-5)
[2017-10-17 08:28] LABS: Red Blood Cells-Urine 0-5 SEEN /hpf (0-5); Squamous Epithelial Cells - UA 0-5 SEEN /hpf (5-10)
[2017-10-17 08:29] LABS: Bacteria 4+ /hpf (None Seen)
[2017-10-17] MEDS: Ceftriaxone 1 GM/50 ML BAG IV (10:15)
[2017-10-17] MEDS: 0.9% Normal Saline 1,000 ML 999 ML IV (10:17)
--- NOTE | 2017-10-17 11:24 | NURSING ---
spoke with Dr. Murdock office regarding consult- law firm receptionist states Dr. Murdock is out of state in [place] at a conference and will not be back until Friday. Will notify Dr. Ching
[2017-10-17 11:44] LABS: Uric Acid 7.9 mg/dL (2.6-6.0)
--- NOTE | 2017-10-17 12:31 | HP.PCM_ITS ---
Problem List (1) TATIANA (obstructive sleep apnea) Status: Acute (2) Hyperlipidemia Status: Chronic Qualifiers: Hyperlipidemia type: unspecified Qualified Code(s): E78.5 - Hyperlipidemia , unspecified (3) Hypertension Status: Chronic Qualifiers: Hypertension type: essential hypertension Qualified Code(s): I10 - Essential (primary) hypertension (4) CAD (coronary artery disease), qawalangin coronary artery Status: Acute (5) UTI (urinary tract infection) Status: Acute Qualifiers: Urinary tract infection type: site unspecified History of Present Illness Date of Admission: 10/17/17 Chief Complaint: Right groin pain The patient is a 67 year old F with PMHx of CAD, hypertension, hyperlipidemia, history of kidney stones comes in with sudden onset of right groin pain which started this morning. Pain was severe, felt down her legs, associated with some nausea and no vomiting, was more than 10 out of 10. She was otherwise stable yesterday. Denies any fever or dysuria or frequency, or urgency. Admits to some night sweats with some weight loss which has been ongoing for some months. She has been following closely with her primary care doctor for multiple tests. In the ED, vitals showed slight elevation in blood pressure secondary to pain, labs were remarkable for WBC count of 10.4, hemoglobin 11.0, platelets 295, sodium 140, potassium of 3.1, creatinine 165, elevated from a baseline of 1.10- 1.30. UA was suggestive of UTI Past Medical History Past Medical History (Chronic Problems): Chronic Problems (Last Updated 09/26/17 @ 10:18 by Yuridia [facility]) COPD (chronic obstructive pulmonary disease) (Chronic) Hyperlipidemia (Chronic) Hypertension (Chronic) S/P coronary artery stent placement (Chronic) Allergies promethazine HCl [From Phenergan] Allergy (Verified 10/17/17 07:04) Itching Home Medications: Ambulatory Orders Medication Instructions Recorded Aspirin E.C. [Ecotrin] 81 mg PO DAILY@0800 08/02/13 Nitroglycerin [Nitrostat] 0.4 mg SUBLINGUAL Q5M PRN 08/02/13 Venlafaxine HCl [Effexor] 37.5 mg PO BID 08/02/13 Venlafaxine HCl [Effexor] 100 mg PO BID 10/10/14 albuterol sulfate HFA 90 2 puff INHALATION Q4H PRN #18 g 09/26/17 mcg/actuation aerosol inhaler umeclidinium 62.5 mcg-vilanterol 1 inh INHALATION Q24H #60 ea 09/26/17 25 mcg/actuation powdr for inhalation clopidogrel 75 mg tablet 75 mg PO DAILY #90 tab 10/03/17 furosemide 20 mg tablet 20 mg PO QDAY #90 tab 10/03/17 metoprolol tartrate 50 mg tablet 50 mg PO BID #180 tab 10/03/17 pantoprazole 40 mg tablet,delayed 40 mg PO DAILY #90 tab 10/03/17 release ramipril 10 mg capsule 10 mg PO BID #180 cap 10/03/17 simvastatin 40 mg tablet 40 mg PO QHS #90 tab 10/03/17 Spironolactone [Aldactone] 25 mg PO DAILY 10/17/17 Surgical History: adenoidectomy, cholecystectomy, herniorrhaphy Psychiatric History: No pertinent psych hx VACUUM CASTER History: No pertinent VACUUM CASTER history Smoking Status: Never smoker - *Family History Maternal History Items: Cancer - lung, Heart Disease Paternal History Items: Cancer - liver Review of Systems Constitutional: Reports: Chills, Night Sweats, Weakness. Denies: Anorexia, Fever, Weight Change Eyes: Denies: Blurred vision, Cataracts, Conjunctivae Inflammation, Double vision, Pain, Redness, Vision Change HEENT: Denies: Difficulty Hearing, Difficulty Swallowing, Head Aches, Hearing Changes, Sinus Congestion, Sinus Drainage, Sore Throat Cardiovascular: Denies: Chest Pain, Claudication, Chest Pressure, Chest Tightness, Edema, Orthopnea, Palpitations, Paroxysmal Noc. Dyspnea Respiratory: Denies: Cough, Hemoptysis, Pleuritic Pain, Shortness of Breath, Shortness of breath at rest, Shortness of breath upon exertion, Sputum production Gastrointestinal: Reports: Abdominal Pain. Denies: Constipation, Diarrhea, Dyspepsia, Hematemesis, Hematochezia, Nausea, Vomiting Genitourinary: Denies: Dysuria, Frequency, Hematuria, Incontinence, Nocturia, Retention Gynecological: Denies: Breast symptoms, Excessively long or heavy periods Musculoskeletal: Denies: Arm Pain, Back Pain, Foot Pain, Joint Pain, Joint Tenderness Skin: Denies: Rash, Wounds Neurological: Denies: Balance problems, Difficulty swallowing, Focal weakness, Numbness, Tingling Psychiatric: Denies: Anxiety, Depression, Homicidal Ideations, Suicidal Ideations Hematologic/ Lymphatic: Denies: Easy Bruising, Easy Bleeding VTE Information - Inpt Only VTE Present on Admission: No VTE Pharm Prophylaxis ordered?: Yes Patient Problems: Active and Suspected Problems (Last Updated 09/26/17 @ 10:18 by Yuridia [facility]) UTI (urinary tract infection) (Acute) - Physical Exam General: Alert, Oriented x3, Cooperative, No apparent distress HEENT: Atraumatic, PERRLA, EOMI, Normocephalic Oral: Moist Mucosa Neck: Supple Lungs: Clear to auscultation, Normal air movement Cardiovascular: Regular rate, Regular Rhythm, Normal S1, Normal S2, No murmurs Abdomen: Bowel Sounds Present, Soft, Non Tender, Non-Distended, No Hepato- splenomegaly Extremities: No edema Skin: No rashes, No breakdown Musculoskeletal: No Tenderness to Palpation of Joints or Extremities Lymphatic: No Cervical, Supraclavicular, or Inguinal Adenopathy Neurological: Cranial nerves II-XII grossly intact, Neuro grossly intact Psych/Mental Status: Normal Affect, Appropriate Vital Signs Temp Pulse Resp BP Pulse Ox 98.7 F 71 18 118/54 L 96 10/17/17 11:05 10/17/17 11:05 10/17/17 11:05 10/17/17 11:05 10/17/17 11:05 Oxygen Delivery Method Room Air Weight: 103.7 kg Body Mass Index (BMI) 40.5 Assessment/Plan Active and Suspected Problems (Last Updated 09/26/17 @ 10:18 by Yuridia [facility]) UTI (urinary tract infection) (Acute) 67 year old F with PMHx of CAD, hypertension, hyperlipidemia, history of kidney stones comes in with sudden onset of right groin pain which started this morning. 1. Acute abdominal pain secondary to multiple kidney stones, pain is controlled with morphine, will continue on tylenol, oxycodone prn as well as morphine prn. 2. Kidney stones, unknown etiology, multiple stones in both kidneys, largest is 1 cm, right ureter proximal stone of 3 mm, check uric acid, patient will need to follow-up with urologist on discharge. 3. Acute complicated UTI 4. CAD s/p stent, on aspirin, Plavix,statin, will hold Aldactone, and ramipril, 5. Hypertension,initially uncontrolled secondary to pain, controlled on the floor, continue home regimen 6. Hyperlipidemia, on statin 7. Anemia, microcytic, microchromic, will check iron stores, retic count 8. LINDA on CKD stage 3, secondary to dehydration, would hold ramipril, Aldactone , Lasix, IV fluids, repeat blood work in the morning 9. Code Visit Inpatient E&M: 52106 Init Hosp L3
[2017-10-17] MEDS: Pantoprazole Sodium 40 MG Tablet PO (12:49)
[2017-10-17] MEDS: Aspirin E.C. 81 MG Tablet PO (12:49)
[2017-10-17] MEDS: Clopidogrel Bisulfate 75 MG Tablet PO (12:49)
[2017-10-17] MEDS: Metoprolol Tartrate 50 MG Tablet PO ×2 (12:49→21:50)
[2017-10-17 13:03] LABS: Immature Platelet Fraction 1.9 % (1.0-7.9); RET-HE 29.2 pg (30-35); Reticulocyte Count 1.11 % (0.5-1.5)
[2017-10-17 13:39] LABS: Ferritin 327 ng/mL (8-252); Iron 56 ug/dL (50-170); Iron Binding Capacity,Total 248 ug/dL (250-450); PERCENT IRON SATURATION 22.6 % (15.0-55.0)
[2017-10-17] MEDS: 0.9% Normal Saline 1,000 ML 100 ML IV (17:27)
[2017-10-17] MEDS: oxyCODONE 5 MG Tablet PO (17:32)
[2017-10-17] MEDS: Ipratropium/Albuterol Sulfate 3 ML AMPUL.NEB INHALATION (19:35)
[2017-10-17] MEDS: Heparin Injection (Vial) 5,000 UNIT/ML VIAL 5000 UNIT SC (21:49)
[2017-10-17] MEDS: Venlafaxine HCl 75 MG Tablet 37.5 MG PO (21:49)
[2017-10-17] MEDS: Morphine 4 MG/ML Syringe 1 MG IV (21:49)
[2017-10-17] MEDS: Atorvastatin Calcium 20 MG Tablet PO (21:49)
[2017-10-18] VITALS (9 sets, daily range): BP systolic 125–137; BP diastolic 57–62; PULSE 64–77; RESP 14–20; TEMP 36.8–37.7; O2SAT 94–97
[2017-10-18] MEDS: Morphine 4 MG/ML Syringe 1 MG IV (03:32)
[2017-10-18] MEDS: 0.9% NaCl Peripheral Flush Adult/Peds IV ×2 (03:34→14:57)
[2017-10-18] MEDS: 0.9% Normal Saline 1,000 ML 100 ML IV ×2 (03:44→14:53)
[2017-10-18] MEDS: Ipratropium/Albuterol Sulfate 3 ML AMPUL.NEB INHALATION ×3 (07:03→18:50)
[2017-10-18 07:10] LABS: BUN 30 mg/dL (7-18); Creatinine, Serum 2.04 mg/dL (0.55-1.02); EST Glomerular Filtration Rate 26 mL/min (>60); Estimated Creatinine Clearance 21.83 ml/min; Glucose 150 mg/dL (74-106)
[2017-10-18 07:11] LABS: Anion Gap 9 (5-15); BUN/Creat Ratio 14.7 RATIO (10-20); Chloride 108 mmol/L (98-107); Est Glom Filt Rate - Afr Amer 31 mL/min (>60); Potassium 3.6 mmol/L (3.5-5.1); Sodium Level 136 mmol/L (136-145)
[2017-10-18 07:19] LABS: Absolute Lymphocyte Count 1.74 X10^3/ul (0.83-4.51); Absolute Neutrophil Count 21.3 X10^3/uL (2.0-7.7); Basophil# 0.03 X10^3/uL; Basophil% 0.1 % (0-1); Eosinophil# 0.07 X10^3/uL; Eosinophils% 0.3 % (0-5); Hematocrit 28.8 % (37-47); Hemoglobin 9.6 g/dl (12.0-15.0); Lymphocyte # 1.74 X10^3/ul (4.0); Lymphocyte % 7.1 % (19-41); Mean Corp Hgb Conc 33.3 g/gl (32-36); Mean Corpuscular Hgb 30.6 pg (27.0-32.0); Mean Corpuscular Volume 91.7 fL (81-99); Mean Platelet Vol. 9.8 fl (6.2-12.0); Monocyte# 1.33 X10^3/uL; Monocyte% 5.4 % (0-10); Neutrophil # 21.32 X10^3/uL (2.7-7.7); Neutrophil % 86.5 % (47-70); Platelet Count 258 K/mm3 (150-450); RBC Distribution Width CV 14.6 % (11.6-14.6); RBC Distribution Width SD 47.5 fl (35.1-43.9); Red Blood Count 3.14 M/mm3 (4.2-5.4); White Blood Count 24.6 K/mm3 (4.4-11.0)
[2017-10-18 07:20] LABS: Differential Indicated SCAN CRITERIA MET; POSITIVE COUNT NO; POSITIVE DIFFERENTIAL YES; POSITIVE MORPHOLOGY NO
[2017-10-18] MEDS: Venlafaxine HCl 75 MG Tablet 37.5 MG PO ×2 (08:27→23:45)
[2017-10-18] MEDS: Aspirin E.C. 81 MG Tablet PO (08:28)
[2017-10-18] MEDS: Metoprolol Tartrate 50 MG Tablet PO ×2 (08:28→23:45)
[2017-10-18] MEDS: Pantoprazole Sodium 40 MG Tablet PO (08:29)
[2017-10-18] MEDS: Clopidogrel Bisulfate 75 MG Tablet PO (08:29)
[2017-10-18] MEDS: Heparin Injection (Vial) 5,000 UNIT/ML VIAL 5000 UNIT SC ×2 (08:30→23:45)
--- NOTE | 2017-10-18 09:34 | RAD_ITS ---
STUDY: X-RAY - ABDOMEN/PELVIS REASON FOR EXAM: Female, 67 years old. Abdominal pain TECHNIQUE: Two AP supine views of the abdomen and pelvis. COMPARISON: None. FINDINGS: Normal visualized lung bases. There is an unremarkable bowel gas pattern. There is no demonstrated free abdominal air. Multiple diverticula are identified along the distal colon. The visualized liver, spleen and kidneys are grossly normal in size and morphology. Normal soft tissue structures. Normal visualized osseous structures. RAD/Abdomen Single View IMPRESSION: Nonspecific bowel gas pattern. Multiple diverticula are identified. Electronically Signed: Don Quinones DO at 11:35 EDT , Service support ,
--- NOTE | 2017-10-18 09:41 | PCM.PN.HOSP ---
Patient Problems: Active and Suspected Problems (Last Updated 09/26/17 @ 10:18 by Yuridia [facility]) UTI (urinary tract infection) (Acute) Subjective: Seen and examined. Patient was admitted with right ureteric colic pain secondary to right proximal calculus 3 mm in size. Patient passes stone wall taper helper today. Stone seen it looks like about 3 mm, polygonal in shape with rough and spiky surface; possible calcium oxalate stone Patient denies abdominal pain, nausea or vomiting. No fever or chills. Blood work reviewed shows leukocytosis. Urine culture pending but. Urine culture showed Klebsiella pneumonia Vitals/I&O's: Vital Signs Temp Pulse Resp BP Pulse Ox 98.2 F 65 20 H 125/57 H 96 10/18/17 03:36 10/18/17 08:28 10/18/17 07:03 10/18/17 03:36 10/18/17 07:03 Oxygen Flow Rate (L/min) 2 Oxygen Delivery Method Room Air Weight: 228 lb 9.91 oz Body Mass Index (BMI) 40.5 Intake and Output for Last 24 Hours 10/16/17 10/17/17 10/18/17 23:59 23:59 23:59 Intake Total 813 / 813 2412 / 2412 Output Total 100 / 100 550 / 550 Balance 713 / 713 1862 / 1862 General: Alert, Oriented x3, Cooperative HEENT: Atraumatic, PERRLA, EOMI, Normocephalic Neck: Supple, No JVD, Negative Carotid Bruits Lungs: Clear to auscultation, No rhonchi, Diminished - In bilateral lung bases Cardiovascular: Regular rate, Regular Rhythm, Normal S1, Normal S2, No murmurs Abdomen: Bowel Sounds Present, Soft, Non Tender, Non-Distended Extremities: No edema, Capillary Refill Less than 3 Seconds Skin: No rashes, No breakdown Musculoskeletal: No Tenderness to Palpation of Joints or Extremities, Arthritic Changes Neurological: Cranial nerves II-XII grossly intact Psych/Mental Status: Normal Affect, Appropriate Laboratory Results 10/18/17 06:10: WBC 24.6 H, RBC 3.14 L, Hgb 9.6 L, Hct 28.8 L, MCV 91.7, MCH 30.6, MCHC 33.3, RDW 14.6, RDW Differential 47.5 H, Plt Count 258, MPV 9.8, Immature Gran % (Auto) 0.600, Neut % (Auto) 86.5 H, Lymph % (Auto) 7.1 L, [place] % (Auto) 5.4, Eos % (Auto) 0.3, Baso % (Auto) 0.1, Absolute Neuts (auto) 21.3 H, Absolute Lymphs (auto) 1.74, Total Counted Not Reportable 10/18/17 06:10: Sodium 136, Potassium 3.6, Chloride 108 H, Carbon Dioxide 19.0 L, Anion Gap 9, BUN 30 H, Creatinine 2.04 H, Estim Creat Clear Calc 21.83, Est GFR (MDRD) Af Amer 31 L, Est GFR (MDRD) Non-Af 26 L, BUN/Creatinine Ratio 14.7, Glucose 150 H, Calcium 8.0 L Current Medications Albuterol/Ipratropium (Duoneb) 3 ml INHALATION Q6HWA.RT [facility] Last Admin: 10/18/17 07:03 Dose: 3 ml Aspirin (Ecotrin) 81 mg PO DAILY@0800 [facility] Last Admin: 10/18/17 08:28 Dose: 81 mg Atorvastatin Calcium (Lipitor) 20 mg PO QHS [facility] Last Admin: 10/17/17 21:49 Dose: 20 mg Bisacodyl (Dulcolax) 5 mg PO DAILY PRN PRN PRN Reason: Constipation Clopidogrel Bisulfate (Plavix) 75 mg PO DAILY [facility] Last Admin: 10/18/17 08:29 Dose: 75 mg Heparin Sodium (Porcine) (Heparin Na) 5,000 unit SC Q12 [facility] Last Admin: 10/18/17 08:30 Dose: 5,000 u Hydralazine HCl (Apresoline Iv) 5 mg IV Q6H PRN PRN PRN Reason: BLOOD PRESSURE Sodium Chloride () 1,000 mls @ 100 mls/hr IV .Q10H [facility] Last Admin: 10/18/17 03:44 Dose: 100 mls/hr Ceftriaxone Sodium (Rocephin) 1 gm in 50 mls @ 100 mls/hr IV Q12H [facility] Magnesium Hydroxide (Milk Of Magnesia) 30 ml PO DAILY PRN PRN PRN Reason: Constipation Metoprolol Tartrate (Lopressor (Beta Chikis)) 50 mg PO BID [facility] Last Admin: 10/18/17 08:28 Dose: 50 mg Morphine Sulfate () 1 mg IV Q4H PRN PRN PRN Reason: SEVERE PAIN (6-10/10) Last Admin: 10/18/17 03:32 Dose: 1 mg Nitroglycerin (Nitrostat) 0.4 mg SUBLINGUAL Q5M PRN PRN Reason: Chest Pain Ondansetron HCl (Zofran) 4 mg IV Q8H PRN PRN PRN Reason: NAUSEA Oxycodone HCl (Oxyir) 5 mg PO Q4H PRN PRN PRN Reason: SEVERE PAIN (6-10/10) Last Admin: 10/17/17 17:32 Dose: 5 mg Pantoprazole Sodium (Protonix) 40 mg PO DAILY [facility] Last Admin: 10/18/17 08:29 Dose: 40 mg Psyllium Hydrophilic Mucilloid (Metamucil) 1 packet PO DAILY PRN PRN PRN Reason: CONSTIPATION Sodium Chloride () 5 - 30 ml IV UD PRN PRN Reason: SALINE FLUSH Last Admin: 10/18/17 03:34 Dose: 10 ml Venlafaxine HCl (Effexor) 100 mg PO BID [facility] Last Admin: 10/18/17 08:28 Dose: 100 mg Venlafaxine HCl (Effexor) 37.5 mg PO BID [facility] Last Admin: 10/18/17 08:27 Dose: 37.5 mg Medical Necessity - Tobacco Use Smoking Status: Never smoker Assessment/Plan Active and Suspected Problems (Last Updated 09/26/17 @ 10:18 by Yuridia [facility]) UTI (urinary tract infection) (Acute) This is a 67 year old F with PMHx of CAD, hypertension, hyperlipidemia, history of kidney stones comes in with sudden onset of right groin pain which started this morning. Patient is undergoing workup for multiple kidney stones in the past 1. Acute right ureteric colic most probably secondary to right proximal ureteric stone 3 mm in size with history of multiple bilateral nonobstructive intrarenal calculi: Patient denies abdominal pain, nausea or vomiting. No fever or chills. pain is controlled , will continue on tylenol, oxycodone prn as well as morphine prn. Patient passes stone wall taper helper today. Stone seen it looks like about 3 mm, polygonal in shape with rough and spiky surface; repeat KUB x-ray ordered. Stone analysis ordered. Kidney stones, unknown etiology, multiple stones in both kidneys, largest is 1 cm, right ureter proximal stone of 3 mm: Uric acid is elevated 7.9. 2. LINDA on CKD stage 3, most probably secondary to prerenal due to dehydration and obstructive uropathy as mentioned above: IV fluid normal saline, would hold ramipril, Aldactone, Lasix, IV fluids, monitor intake and output. 3. Acute complicated UTI, with right pyelonephritis with right hydronephrosis secondary to obstructive uropathy 3 mm proximal right ureteral calculus as mentioned above: Leukocytosis. Ceftriaxone increased 1 g every 12 hourly. As per previous urine culture urine. She grew Klebsiella pneumoniae and sensitive to ceftriaxone. It seems patient has passed on as mentioned above. Dr. Murdock is out of town. Dr. Lemon texted. 4. CAD s/p stent, on aspirin, Plavix,statin, will hold Aldactone, and ramipril, 5. Hypertension,initially uncontrolled secondary to pain, controlled on the floor, continue home regimen 6. Hyperlipidemia, on statin 7. Normocytic normochromic anemia most probably secondary to chronic disease reticulocyte count is within normal limit: Iron 56, TIBC low at 248, iron saturation 22%. Ferritin 327. Treat the underlying cause Laboratory Results 10/17/17 07:38: Immature Plt Fraction 1.9, Retic Count 1.11, Immature Retic Fraction 14.00, Retic Hgb Equivalent 29.2 L 10/17/17 07:38: Iron 56, TIBC 248 L, Iron Saturation 22.6, Ferritin 327 H 10/17/17 07:58: Uric Acid 7.9 H 10/18/17 06:10: WBC 24.6 H, RBC 3.14 L, Hgb 9.6 L, Hct 28.8 L, MCV 91.7, MCH 30.6, MCHC 33.3, RDW 14.6, RDW Differential 47.5 H, Plt Count 258, MPV 9.8, Immature Gran % (Auto) 0.600, Neut % (Auto) 86.5 H, Lymph % (Auto) 7.1 L, [place] % (Auto) 5.4, Eos % (Auto) 0.3, Baso % (Auto) 0.1, Absolute Neuts (auto) 21.3 H, Absolute Lymphs (auto) 1.74, Total Counted Not Reportable 10/18/17 06:10: Sodium 136, Potassium 3.6, Chloride 108 H, Carbon Dioxide 19.0 L, Anion Gap 9, BUN 30 H, Creatinine 2.04 H, Estim Creat Clear Calc 21.83, Est GFR (MDRD) Af Amer 31 L, Est GFR (MDRD) Non-Af 26 L, BUN/Creatinine Ratio 14.7, Glucose 150 H, Calcium 8.0 L Clinical Impression(s) from Imaging Studies Abdomen/Pelvis CT 10/17/17 07:21 IMPRESSION: Enlargement of the right kidney with moderate right hydronephrosis and proximal right hydroureter due to a 3 mm calculus in the proximal portion of the right ureter. Multiple bilateral nonobstructive intrarenal calculi. Sigmoid diverticulosis. Electronically Signed: Huseyin Morton MD at 9:01 EDT Tel [phone], Service support , Code Visit Inpatient E&M: 94620 Subs Hosp L3
--- NOTE | 2017-10-18 09:55 | PN_ITS ---
Patient Problems: Active and Suspected Problems (Last Updated 09/26/17 @ 10:18 by Yuridia Welsh) UTI (urinary tract infection) (Acute) Subjective: Seen and examined. Patient was admitted with right ureteric colic pain secondary to right proximal calculus 3 mm in size. Patient passes stone office services specialist today. Stone seen it looks like about 3 mm, polygonal in shape with rough and spiky surface; possible calcium oxalate stone Patient denies abdominal pain, nausea or vomiting. No fever or chills. Blood work reviewed shows leukocytosis. Urine culture pending but. Urine culture showed Klebsiella pneumonia Vitals/I&O's: Vital Signs Temp Pulse Resp BP Pulse Ox 98.2 F 65 20 H 125/57 H 96 10/18/17 03:36 10/18/17 08:28 10/18/17 07:03 10/18/17 03:36 10/18/17 07:03 Oxygen Flow Rate (L/min) 2 Oxygen Delivery Method Room Air Weight: 228 lb 9.91 oz Body Mass Index (BMI) 40.5 Intake and Output for Last 24 Hours 10/16/17 10/17/17 10/18/17 23:59 23:59 23:59 Intake Total 813 / 813 2412 / 2412 Output Total 100 / 100 550 / 550 Balance 713 / 713 1862 / 1862 General: Alert, Oriented x3, Cooperative HEENT: Atraumatic, PERRLA, EOMI, Normocephalic Neck: Supple, No JVD, Negative Carotid Bruits Lungs: Clear to auscultation, No rhonchi, Diminished - In bilateral lung bases Cardiovascular: Regular rate, Regular Rhythm, Normal S1, Normal S2, No murmurs Abdomen: Bowel Sounds Present, Soft, Non Tender, Non-Distended Extremities: No edema, Capillary Refill Less than 3 Seconds Skin: No rashes, No breakdown Musculoskeletal: No Tenderness to Palpation of Joints or Extremities, Arthritic Changes Neurological: Cranial nerves II-XII grossly intact Psych/Mental Status: Normal Affect, Appropriate Laboratory Results 10/18/17 06:10: WBC 24.6 H, RBC 3.14 L, Hgb 9.6 L, Hct 28.8 L, MCV 91.7, MCH 30.6, MCHC 33.3, RDW 14.6, RDW Differential 47.5 H, Plt Count 258, MPV 9.8, Immature Gran % (Auto) 0.600, Neut % (Auto) 86.5 H, Lymph % (Auto) 7.1 L, [place] % (Auto) 5.4, Eos % (Auto) 0.3, Baso % (Auto) 0.1, Absolute Neuts (auto) 21.3 H , Absolute Lymphs (auto) 1.74, Total Counted Not Reportable 10/18/17 06:10: Sodium 136, Potassium 3.6, Chloride 108 H, Carbon Dioxide 19.0 L , Anion Gap 9, BUN 30 H, Creatinine 2.04 H, Estim Creat Clear Calc 21.83, Est GFR (MDRD) Af Amer 31 L, Est GFR (MDRD) Non-Af 26 L, BUN/Creatinine Ratio 14.7, Glucose 150 H, Calcium 8.0 L Current Medications Albuterol/Ipratropium (Duoneb) 3 ml INHALATION Q6HWA.RT [facility] Last Admin: 10/18/17 07:03 Dose: 3 ml Aspirin (Ecotrin) 81 mg PO DAILY@0800 [facility] Last Admin: 10/18/17 08:28 Dose: 81 mg Atorvastatin Calcium (Lipitor) 20 mg PO QHS [facility] Last Admin: 10/17/17 21:49 Dose: 20 mg Bisacodyl (Dulcolax) 5 mg PO DAILY PRN PRN PRN Reason: Constipation Clopidogrel Bisulfate (Plavix) 75 mg PO DAILY [facility] Last Admin: 10/18/17 08:29 Dose: 75 mg Heparin Sodium (Porcine) (Heparin Na) 5,000 unit SC Q12 [facility] Last Admin: 10/18/17 08:30 Dose: 5,000 u Hydralazine HCl (Apresoline Iv) 5 mg IV Q6H PRN PRN PRN Reason: BLOOD PRESSURE Sodium Chloride () 1,000 mls @ 100 mls/hr IV .Q10H [facility] Last Admin: 10/18/17 03:44 Dose: 100 mls/hr Ceftriaxone Sodium (Rocephin) 1 gm in 50 mls @ 100 mls/hr IV Q12H [facility] Magnesium Hydroxide (Milk Of Magnesia) 30 ml PO DAILY PRN PRN PRN Reason: Constipation Metoprolol Tartrate (Lopressor (Beta Chikis)) 50 mg PO BID [facility] Last Admin: 10/18/17 08:28 Dose: 50 mg Morphine Sulfate () 1 mg IV Q4H PRN PRN PRN Reason: SEVERE PAIN (6-10/10) Last Admin: 10/18/17 03:32 Dose: 1 mg Nitroglycerin (Nitrostat) 0.4 mg SUBLINGUAL Q5M PRN PRN Reason: Chest Pain Ondansetron HCl (Zofran) 4 mg IV Q8H PRN PRN PRN Reason: NAUSEA Oxycodone HCl (Oxyir) 5 mg PO Q4H PRN PRN PRN Reason: SEVERE PAIN (6-10/10) Last Admin: 10/17/17 17:32 Dose: 5 mg Pantoprazole Sodium (Protonix) 40 mg PO DAILY [facility] Last Admin: 10/18/17 08:29 Dose: 40 mg Psyllium Hydrophilic Mucilloid (Metamucil) 1 packet PO DAILY PRN PRN PRN Reason: CONSTIPATION Sodium Chloride () 5 - 30 ml IV UD PRN PRN Reason: SALINE FLUSH Last Admin: 10/18/17 03:34 Dose: 10 ml Venlafaxine HCl (Effexor) 100 mg PO BID [facility] Last Admin: 10/18/17 08:28 Dose: 100 mg Venlafaxine HCl (Effexor) 37.5 mg PO BID [facility] Last Admin: 10/18/17 08:27 Dose: 37.5 mg Medical Necessity - Tobacco Use Smoking Status: Never smoker Assessment/Plan Active and Suspected Problems (Last Updated 09/26/17 @ 10:18 by Yuridia Welsh) UTI (urinary tract infection) (Acute) This is a 67 year old F with PMHx of CAD, hypertension, hyperlipidemia, history of kidney stones comes in with sudden onset of right groin pain which started this morning. Patient is undergoing workup for multiple kidney stones in the past 1. Acute right ureteric colic most probably secondary to right proximal ureteric stone 3 mm in size with history of multiple bilateral nonobstructive intrarenal calculi: Patient denies abdominal pain, nausea or vomiting. No fever or chills. pain is controlled , will continue on tylenol, oxycodone prn as well as morphine prn. Patient passes stone office services specialist today. Stone seen it looks like about 3 mm , polygonal in shape with rough and spiky surface; repeat KUB x-ray ordered. Stone analysis ordered. Kidney stones, unknown etiology, multiple stones in both kidneys, largest is 1 cm, right ureter proximal stone of 3 mm: Uric acid is elevated 7.9. 2. LINDA on CKD stage 3, most probably secondary to prerenal due to dehydration and obstructive uropathy as mentioned above: IV fluid normal saline, would hold ramipril, Aldactone, Lasix, IV fluids, monitor intake and output. 3. Acute complicated UTI, with right pyelonephritis with right hydronephrosis secondary to obstructive uropathy 3 mm proximal right ureteral calculus as mentioned above: Leukocytosis. Ceftriaxone increased 1 g every 12 hourly. As per previous urine culture urine. She grew Klebsiella pneumoniae and sensitive to ceftriaxone. It seems patient has passed on as mentioned above. Dr. Murdock is out of town. Dr. Lemon texted. 4. CAD s/p stent, on aspirin, Plavix,statin, will hold Aldactone, and ramipril, 5. Hypertension,initially uncontrolled secondary to pain, controlled on the floor, continue home regimen 6. Hyperlipidemia, on statin 7. Normocytic normochromic anemia most probably secondary to chronic disease reticulocyte count is within normal limit: Iron 56, TIBC low at 248, iron saturation 22%. Ferritin 327. Treat the underlying cause Laboratory Results 10/17/17 07:38: Immature Plt Fraction 1.9, Retic Count 1.11, Immature Retic Fraction 14.00, Retic Hgb Equivalent 29.2 L 10/17/17 07:38: Iron 56, TIBC 248 L, Iron Saturation 22.6, Ferritin 327 H 10/17/17 07:58: Uric Acid 7.9 H 10/18/17 06:10: WBC 24.6 H, RBC 3.14 L, Hgb 9.6 L, Hct 28.8 L, MCV 91.7, MCH 30.6, MCHC 33.3, RDW 14.6, RDW Differential 47.5 H, Plt Count 258, MPV 9.8, Immature Gran % (Auto) 0.600, Neut % (Auto) 86.5 H, Lymph % (Auto) 7.1 L, [place] % (Auto) 5.4, Eos % (Auto) 0.3, Baso % (Auto) 0.1, Absolute Neuts (auto) 21.3 H , Absolute Lymphs (auto) 1.74, Total Counted Not Reportable 10/18/17 06:10: Sodium 136, Potassium 3.6, Chloride 108 H, Carbon Dioxide 19.0 L , Anion Gap 9, BUN 30 H, Creatinine 2.04 H, Estim Creat Clear Calc 21.83, Est GFR (MDRD) Af Amer 31 L, Est GFR (MDRD) Non-Af 26 L, BUN/Creatinine Ratio 14.7, Glucose 150 H, Calcium 8.0 L Clinical Impression(s) from Imaging Studies Abdomen/Pelvis CT 10/17/17 07:21 IMPRESSION: Enlargement of the right kidney with moderate right hydronephrosis and proximal right hydroureter due to a 3 mm calculus in the proximal portion of the right ureter. Multiple bilateral nonobstructive intrarenal calculi. Sigmoid diverticulosis. Electronically Signed: Huseyin Morton MD at 9:01 EDT Tel [phone], Service support , Code Visit Inpatient E&M: 96042 Subs Hosp L3
[2017-10-18] MEDS: Ceftriaxone 1 GM/50 ML BAG IV ×2 (10:39→23:44)
--- NOTE | 2017-10-18 12:06 | PCM.CONS.GEN ---
Reason for Consult Date of Consultation: 10/18/17 Reason for Consultation: Kidney stone History of Present Illness: The patient is a 67 year old F who has had prior stones. Hx on admitting H&P. Not repeated nor changed here as dictation unavailable.[] Past Medical History Past Medical History (Chronic Problems): Chronic Problems (Last Updated 09/26/17 @ 10:18 by Yuridia Welsh) COPD (chronic obstructive pulmonary disease) (Chronic) Hyperlipidemia (Chronic) Hypertension (Chronic) S/P coronary artery stent placement (Chronic) Allergies promethazine HCl [From Phenergan] Allergy (Verified 10/17/17 07:04) Itching Home Medications: Ambulatory Orders Medication Instructions Recorded Aspirin E.C. [Ecotrin] 81 mg PO DAILY@0800 08/02/13 Nitroglycerin [Nitrostat] 0.4 mg SUBLINGUAL Q5M PRN 08/02/13 Venlafaxine HCl [Effexor] 37.5 mg PO BID 08/02/13 Venlafaxine HCl [Effexor] 100 mg PO BID 10/10/14 albuterol sulfate HFA 90 2 puff INHALATION Q4H PRN #18 g 09/26/17 mcg/actuation aerosol inhaler umeclidinium 62.5 mcg-vilanterol 1 inh INHALATION Q24H #60 ea 09/26/17 25 mcg/actuation powdr for inhalation clopidogrel 75 mg tablet 75 mg PO DAILY #90 tab 10/03/17 furosemide 20 mg tablet 20 mg PO QDAY #90 tab 10/03/17 metoprolol tartrate 50 mg tablet 50 mg PO BID #180 tab 10/03/17 pantoprazole 40 mg tablet,delayed 40 mg PO DAILY #90 tab 10/03/17 release ramipril 10 mg capsule 10 mg PO BID #180 cap 10/03/17 simvastatin 40 mg tablet 40 mg PO QHS #90 tab 10/03/17 Spironolactone [Aldactone] 25 mg PO DAILY 10/17/17 Surgical History: adenoidectomy, cholecystectomy, herniorrhaphy Psychiatric History: No pertinent psych hx REPEAT CHIEF History: No pertinent REPEAT CHIEF history Smoking Status: Never smoker - *Family History Maternal History Items: Cancer - lung, Heart Disease Paternal History Items: Cancer - liver Patient Problems: Active and Suspected Problems (Last Updated 09/26/17 @ 10:18 by Yuridia Welsh) UTI (urinary tract infection) (Acute) - Physical Exam General: Alert, Oriented x3, Cooperative, No apparent distress Neck: Supple Abdomen: Soft, Non Tender, Obese, - - No guarding, denies any pain Musculoskeletal: - - No pain, nor CVA pain etc Vital Signs Temp Pulse Resp BP Pulse Ox 98.4 F 65 18 130/58 H 96 10/18/17 08:20 10/18/17 08:28 10/18/17 08:20 10/18/17 08:20 10/18/17 08:20 Oxygen Flow Rate (L/min) 2 Oxygen Delivery Method Room Air Weight: 103.7 kg Body Mass Index (BMI) 40.5 Intake and Output for Last 24 Hours 10/16/17 10/17/17 10/18/17 23:59 23:59 23:59 Intake Total 813 / 813 2412 / 2412 Output Total 100 / 100 550 / 550 Balance 713 / 713 1862 / 1862 Microbiology Past 72 Hours 10/17/17 18:25 Urine Culture - Preliminary Urine, Clean Catch GNR lactose message and delivery service pricer Laboratory Tests Past 24 Hrs 10/18/17 10/18/17 10/18/17 06:10 06:10 10:20 WBC 24.6 H RBC 3.14 L Hgb 9.6 L Hct 28.8 L MCV 91.7 MCH 30.6 MCHC 33.3 RDW 14.6 RDW Differential 47.5 H Plt Count 258 MPV 9.8 Immature Gran % (Auto) 0.600 Neut % (Auto) 86.5 H Lymph % (Auto) 7.1 L [place] % (Auto) 5.4 Eos % (Auto) 0.3 Baso % (Auto) 0.1 Absolute Neuts (auto) 21.3 H Absolute Lymphs (auto) 1.74 Total Counted Not Reportable Sodium 136 Potassium 3.6 Chloride 108 H Carbon Dioxide 19.0 L Anion Gap 9 BUN 30 H Creatinine 2.04 H Estim Creat Clear Calc 21.83 Est GFR (MDRD) Af Amer 31 L Est GFR (MDRD) Non-Af 26 L BUN/Creatinine Ratio 14.7 Glucose 150 H Calcium 8.0 L Stone Size Pending Stone Weight Pending Stone Color Pending Assessment/Plan Active and Suspected Problems (Last Updated 09/26/17 @ 10:18 by Yuridia Welsh) UTI (urinary tract infection) (Acute) IObstructing right sided stone w infection Signi change in creat and WBC Currently afebrile, pain free and has passed stone, suspect it is the offending stone Plan Continue fluids, ATB''s till tomorrow and if improvemrnt probable DC then NOTE Pt needs f/u to address non-obstructing stones at later date because now these are mostly likely nidi for future UTI's and concern of repeating this episode.
--- NOTE | 2017-10-18 12:15 | CON.PCM_ITS ---
Reason for Consult Date of Consultation: 10/18/17 Reason for Consultation: Kidney stone History of Present Illness: The patient is a 67 year old F who has had prior stones. Hx on admitting H&P. Not repeated nor changed here as dictation unavailable.[] Past Medical History Past Medical History (Chronic Problems): Chronic Problems (Last Updated 09/26/17 @ 10:18 by Yuridia Welsh) COPD (chronic obstructive pulmonary disease) (Chronic) Hyperlipidemia (Chronic) Hypertension (Chronic) S/P coronary artery stent placement (Chronic) Allergies promethazine HCl [From Phenergan] Allergy (Verified 10/17/17 07:04) Itching Home Medications: Ambulatory Orders Medication Instructions Recorded Aspirin E.C. [Ecotrin] 81 mg PO DAILY@0800 08/02/13 Nitroglycerin [Nitrostat] 0.4 mg SUBLINGUAL Q5M PRN 08/02/13 Venlafaxine HCl [Effexor] 37.5 mg PO BID 08/02/13 Venlafaxine HCl [Effexor] 100 mg PO BID 10/10/14 albuterol sulfate HFA 90 2 puff INHALATION Q4H PRN #18 g 09/26/17 mcg/actuation aerosol inhaler umeclidinium 62.5 mcg-vilanterol 1 inh INHALATION Q24H #60 ea 09/26/17 25 mcg/actuation powdr for inhalation clopidogrel 75 mg tablet 75 mg PO DAILY #90 tab 10/03/17 furosemide 20 mg tablet 20 mg PO QDAY #90 tab 10/03/17 metoprolol tartrate 50 mg tablet 50 mg PO BID #180 tab 10/03/17 pantoprazole 40 mg tablet,delayed 40 mg PO DAILY #90 tab 10/03/17 release ramipril 10 mg capsule 10 mg PO BID #180 cap 10/03/17 simvastatin 40 mg tablet 40 mg PO QHS #90 tab 10/03/17 Spironolactone [Aldactone] 25 mg PO DAILY 10/17/17 Surgical History: adenoidectomy, cholecystectomy, herniorrhaphy Psychiatric History: No pertinent psych hx 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 pertinent LOCKSTITCH 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 history Smoking Status: Never smoker - *Family History Maternal History Items: Cancer - lung, Heart Disease Paternal History Items: Cancer - liver Patient Problems: Active and Suspected Problems (Last Updated 09/26/17 @ 10:18 by Yuridia Welsh) UTI (urinary tract infection) (Acute) - Physical Exam General: Alert, Oriented x3, Cooperative, No apparent distress Neck: Supple Abdomen: Soft, Non Tender, Obese, - - No guarding, denies any pain Musculoskeletal: - - No pain, nor CVA pain etc Vital Signs Temp Pulse Resp BP Pulse Ox 98.4 F 65 18 130/58 H 96 10/18/17 08:20 10/18/17 08:28 10/18/17 08:20 10/18/17 08:20 10/18/17 08:20 Oxygen Flow Rate (L/min) 2 Oxygen Delivery Method Room Air Weight: 103.7 kg Body Mass Index (BMI) 40.5 Intake and Output for Last 24 Hours 10/16/17 10/17/17 10/18/17 23:59 23:59 23:59 Intake Total 813 / 813 2412 / 2412 Output Total 100 / 100 550 / 550 Balance 713 / 713 1862 / 1862 Microbiology Past 72 Hours 10/17/17 18:25 Urine Culture - Preliminary Urine, Clean Catch GNR lactose hoop puncher Laboratory Tests Past 24 Hrs 10/18/17 10/18/17 10/18/17 06:10 06:10 10:20 WBC 24.6 H RBC 3.14 L Hgb 9.6 L Hct 28.8 L MCV 91.7 MCH 30.6 MCHC 33.3 RDW 14.6 RDW Differential 47.5 H Plt Count 258 MPV 9.8 Immature Gran % (Auto) 0.600 Neut % (Auto) 86.5 H Lymph % (Auto) 7.1 L [place] % (Auto) 5.4 Eos % (Auto) 0.3 Baso % (Auto) 0.1 Absolute Neuts (auto) 21.3 H Absolute Lymphs (auto) 1.74 Total Counted Not Reportable Sodium 136 Potassium 3.6 Chloride 108 H Carbon Dioxide 19.0 L Anion Gap 9 BUN 30 H Creatinine 2.04 H Estim Creat Clear Calc 21.83 Est GFR (MDRD) Af Amer 31 L Est GFR (MDRD) Non-Af 26 L BUN/Creatinine Ratio 14.7 Glucose 150 H Calcium 8.0 L Stone Size Pending Stone Weight Pending Stone Color Pending Assessment/Plan Active and Suspected Problems (Last Updated 09/26/17 @ 10:18 by Yuridia Welsh) UTI (urinary tract infection) (Acute) IObstructing right sided stone w infection Signi change in creat and WBC Currently afebrile, pain free and has passed stone, suspect it is the offending stone Plan Continue fluids, ATB''s till tomorrow and if improvemrnt probable DC then NOTE Pt needs f/u to address non-obstructing stones at later date because now these are mostly likely nidi for future UTI's and concern of repeating this episode.
--- NOTE | 2017-10-18 14:11 | CASEMGMT ---
RN ODILIA Face to Face with patient for initial transition planning/care coordination assessment. RN CM introduced self and role at [facility]. Patient lyingin bed, alert and oriented. Patient willing to participate in assessment and is able to answer all questions appropriately. Care providers, pharmacy, and demographics verified. See link attached. Pt wishes to discharge home, denies need for home health at this time. Pt states she has no further needs or concerns at this time. CM to follow for discharge planning needs that may arise. Disposition Plan: Patient to discharge home with family support and follow-up plans in place.
[2017-10-18] MEDS: oxyCODONE 5 MG Tablet PO (14:52)
[2017-10-18] MEDS: Atorvastatin Calcium 20 MG Tablet PO (23:45)
[2017-10-19] MEDS: 0.9% Normal Saline 1,000 ML 100 ML IV ×2 (01:17→11:16)
[2017-10-19 03:34] VITALS: BP 118/50; PULSE 61; RESP 20; TEMP 36.8; O2SAT 93
[2017-10-19 06:50] VITALS: O2SAT 95
[2017-10-19 07:04] LABS: Hematocrit 26.4 % (37-47); Hemoglobin 8.8 g/dl (12.0-15.0); Mean Corp Hgb Conc 33.3 g/gl (32-36); Mean Corpuscular Hgb 29.7 pg (27.0-32.0); Mean Corpuscular Volume 89.2 fL (81-99); Mean Platelet Vol. 9.4 fl (6.2-12.0); Platelet Count 269 K/mm3 (150-450); RBC Distribution Width CV 14.9 % (11.6-14.6); RBC Distribution Width SD 49.1 fl (35.1-43.9); Red Blood Count 2.96 M/mm3 (4.2-5.4); White Blood Count 20.1 K/mm3 (4.4-11.0)
[2017-10-19 07:05] LABS: Scan Indicated on CBC? Y/N NO
[2017-10-19 07:29] LABS: Anion Gap 10 (5-15); BUN 28 mg/dL (7-18); BUN/Creat Ratio 21.2 RATIO (10-20); Calcium,Total 8.2 mg/dL (8.5-10.1); Chloride 108 mmol/L (98-107); Creatinine, Serum 1.32 mg/dL (0.55-1.02); EST Glomerular Filtration Rate 42 mL/min (>60); Est Glom Filt Rate - Afr Amer 51 mL/min (>60); Estimated Creatinine Clearance 33.74 ml/min; Glucose 101 mg/dL (74-106); Potassium 3.4 mmol/L (3.5-5.1); Sodium Level 136 mmol/L (136-145)
--- NOTE | 2017-10-19 08:32 | PCM.PN.HOSP ---
Subjective: Abdominal pain. No fever Vitals/I&O's: Vital Signs Temp Pulse Resp BP Pulse Ox 98.3 F 61 20 H 118/50 L 95 10/19/17 03:34 10/19/17 03:34 10/19/17 03:34 10/19/17 03:34 10/19/17 06:50 Oxygen Delivery Method Room Air Intake and Output for Last 24 Hours 10/17/17 10/18/17 10/19/17 23:59 23:59 23:59 Intake Total 1312 / 3724 2434 / 2434 Output Total 500 / 1050 Balance 812 / 2674 2434 / 2434 General: Alert, Oriented x3, Cooperative HEENT: Atraumatic, PERRLA, EOMI, Normocephalic Neck: Supple, No JVD, Negative Carotid Bruits Lungs: Clear to auscultation, Normal air movement Cardiovascular: Regular rate, Regular Rhythm, Normal S1, No murmurs Abdomen: Bowel Sounds Present, Soft, Non Tender Extremities: No edema, Capillary Refill Less than 3 Seconds Skin: No rashes, No breakdown Musculoskeletal: No Tenderness to Palpation of Joints or Extremities Neurological: Cranial nerves II-XII grossly intact Psych/Mental Status: Normal Affect, Appropriate Laboratory Results 10/19/17 06:49: WBC 20.1 H, RBC 2.96 L, Hgb 8.8 L, Hct 26.4 L, MCV 89.2, MCH 29.7, MCHC 33.3, RDW 14.9 H, RDW Differential 49.1 H, Plt Count 269, MPV 9.4 10/19/17 06:49: Sodium 136, Potassium 3.4 L, Chloride 108 H, Carbon Dioxide 18.0 L, Anion Gap 10, BUN 28 H, Creatinine 1.32 H, Estim Creat Clear Calc 33.74, Est GFR (MDRD) Af Amer 51 L, Est GFR (MDRD) Non-Af 42 L, BUN/Creatinine Ratio 21.2 H, Glucose 101, Calcium 8.2 L Current Medications Albuterol/Ipratropium (Duoneb) 3 ml INHALATION Q6HWA.RT [facility] Last Admin: 10/19/17 06:50 Dose: Not Given Aspirin (Ecotrin) 81 mg PO DAILY@0800 [facility] Last Admin: 10/18/17 08:28 Dose: 81 mg Atorvastatin Calcium (Lipitor) 20 mg PO QHS [facility] Last Admin: 10/18/17 23:45 Dose: 20 mg Bisacodyl (Dulcolax) 5 mg PO DAILY PRN PRN PRN Reason: Constipation Clopidogrel Bisulfate (Plavix) 75 mg PO DAILY [facility] Last Admin: 10/18/17 08:29 Dose: 75 mg Heparin Sodium (Porcine) (Heparin Na) 5,000 unit SC Q12 [facility] Last Admin: 10/18/17 23:45 Dose: 5,000 u Hydralazine HCl (Apresoline Iv) 5 mg IV Q6H PRN PRN PRN Reason: BLOOD PRESSURE Sodium Chloride () 1,000 mls @ 100 mls/hr IV .Q10H [facility] Last Admin: 10/19/17 01:17 Dose: 100 mls/hr Ceftriaxone Sodium (Rocephin) 1 gm in 50 mls @ 100 mls/hr IV Q12 [facility] Last Admin: 10/18/17 23:44 Dose: 100 mls/hr Magnesium Hydroxide (Milk Of Magnesia) 30 ml PO DAILY PRN PRN PRN Reason: Constipation Metoprolol Tartrate (Lopressor (Beta Chikis)) 50 mg PO BID [facility] Last Admin: 10/18/17 23:45 Dose: 50 mg Morphine Sulfate () 1 mg IV Q4H PRN PRN PRN Reason: SEVERE PAIN (6-10/10) Last Admin: 10/18/17 03:32 Dose: 1 mg Nitroglycerin (Nitrostat) 0.4 mg SUBLINGUAL Q5M PRN PRN Reason: Chest Pain Ondansetron HCl (Zofran) 4 mg IV Q8H PRN PRN PRN Reason: NAUSEA Oxycodone HCl (Oxyir) 5 mg PO Q4H PRN PRN PRN Reason: SEVERE PAIN (6-10/10) Last Admin: 10/18/17 14:52 Dose: 5 mg Pantoprazole Sodium (Protonix) 40 mg PO DAILY [facility] Last Admin: 10/18/17 08:29 Dose: 40 mg Psyllium Hydrophilic Mucilloid (Metamucil) 1 packet PO DAILY PRN PRN PRN Reason: CONSTIPATION Sodium Chloride () 5 - 30 ml IV UD PRN PRN Reason: SALINE FLUSH Last Admin: 10/18/17 14:57 Dose: 10 ml Venlafaxine HCl (Effexor) 100 mg PO BID [facility] Last Admin: 10/18/17 23:45 Dose: 100 mg Venlafaxine HCl (Effexor) 37.5 mg PO BID [facility] Last Admin: 10/18/17 23:45 Dose: 37.5 mg Medical Necessity - Tobacco Use Smoking Status: Never smoker Assessment/Plan This is a 67 year old F with PMHx of CAD, hypertension, hyperlipidemia, history of kidney stones comes in with sudden onset of right groin pain which started this morning. Patient is undergoing workup for multiple kidney stones in the past 1. Acute right ureteric colic most probably secondary to right proximal ureteric stone 3 mm in size with history of multiple bilateral nonobstructive intrarenal calculi: Patient denies abdominal pain, nausea or vomiting. No fever or chills. pain is controlled , will continue on tylenol, oxycodone prn as well as morphine prn. Patient passes stone detective supervisor today. Stone seen it looks like about 3 mm, polygonal in shape with rough and spiky surface; repeat KUB x-ray reviewed and right ureteric stone is not visible along the right ureter anatomy. Stone analysis ordered. Kidney stones, unknown etiology, multiple stones in both kidneys, largest is 1 cm, right ureter proximal stone of 3 mm: Uric acid is elevated 7.9. 2. LINDA on CKD stage 3, most probably secondary to prerenal due to dehydration and obstructive uropathy as mentioned above: IV fluid normal saline, would hold ramipril, Aldactone, Lasix, IV fluids, monitor intake and output. 3. Acute complicated UTI, with right pyelonephritis with right hydronephrosis secondary to obstructive uropathy 3 mm proximal right ureteral calculus as mentioned above: Leukocytosis. Ceftriaxone increased 1 g every 12 hourly. As per previous urine culture urine. She grew Klebsiella pneumoniae and sensitive to ceftriaxone. It seems patient has passed on as mentioned above. Dr. Murdock is out of town. Dr. Lemon texted. 4. CAD s/p stent, on aspirin, Plavix,statin, will hold Aldactone, and ramipril, 5. Hypertension,initially uncontrolled secondary to pain, controlled on the floor, continue home regimen 6. Hyperlipidemia, on statin 7. Normocytic normochromic anemia most probably secondary to chronic disease reticulocyte count is within normal limit: Iron 56, TIBC low at 248, iron saturation 22%. Ferritin 327. Treat the underlying cause Microbiology Past 72 Hours 10/17/17 18:25 Urine, Clean Catch Urine Culture - Final Klebsiella pneumoniae sp pneum Laboratory Results 10/19/17 06:49: WBC 20.1 H, RBC 2.96 L, Hgb 8.8 L, Hct 26.4 L, MCV 89.2, MCH 29.7, MCHC 33.3, RDW 14.9 H, RDW Differential 49.1 H, Plt Count 269, MPV 9.4 10/19/17 06:49: Sodium 136, Potassium 3.4 L, Chloride 108 H, Carbon Dioxide 18.0 L, Anion Gap 10, BUN 28 H, Creatinine 1.32 H, Estim Creat Clear Calc 33.74, Est GFR (MDRD) Af Amer 51 L, Est GFR (MDRD) Non-Af 42 L, BUN/Creatinine Ratio 21.2 H, Glucose 101, Calcium 8.2 L Clinical Impression(s) from Imaging Studies Abdomen/Pelvis CT 10/17/17 07:21 IMPRESSION: Enlargement of the right kidney with moderate right hydronephrosis and proximal right hydroureter due to a 3 mm calculus in the proximal portion of the right ureter. Multiple bilateral nonobstructive intrarenal calculi. Sigmoid diverticulosis. Electronically Signed: Huseyin Morton MD at 9:01 EDT Tel [phone], Service support , KUB X-Ray 10/18/17 09:34 IMPRESSION: Nonspecific bowel gas pattern. Multiple diverticula are identified. Electronically Signed: Don Quinones DO at 11:35 EDT , Service support ,
[2017-10-19 08:33] VITALS: BP 123/61; PULSE 63; RESP 18; TEMP 36.7; O2SAT 94
[2017-10-19] MEDS: Aspirin E.C. 81 MG Tablet PO (08:35)
[2017-10-19] MEDS: Heparin Injection (Vial) 5,000 UNIT/ML VIAL 5000 UNIT SC (08:36)
[2017-10-19] MEDS: Venlafaxine HCl 75 MG Tablet 37.5 MG PO (08:36)
[2017-10-19 08:37] VITALS: PULSE 63
[2017-10-19] MEDS: Metoprolol Tartrate 50 MG Tablet PO (08:37)
[2017-10-19] MEDS: Pantoprazole Sodium 40 MG Tablet PO (08:37)
[2017-10-19] MEDS: Clopidogrel Bisulfate 75 MG Tablet PO (08:37)
[2017-10-19] MEDS: Ceftriaxone 1 GM/50 ML BAG IV (08:39)
--- NOTE | 2017-10-19 11:30 | PCM.DC ---
- Discharge Diagnoses Current Active Problems: Current Active and Chronic Problems (Last Updated 09/26/17 @ 10:18 by Yuridia Welsh) UTI (urinary tract infection) (Acute) You will use the following diet at home:: Cardiac Discharge Activity: May Not Drive - 7 days Weight Bearing Status: Weight bearing as tolerated Additional Instructions: Follow-up BMP with PCP in 1 week Allergies/Adverse Reactions: Allergies promethazine HCl [From Phenergan] Allergy (Verified 10/17/17 07:04) Itching Medications to take at Discharge Aspirin E.C. [Ecotrin] 81 mg PO DAILY@0800 08/02/13 Nitroglycerin [Nitrostat] 0.4 mg SUBLINGUAL Q5M PRN 08/02/13 Venlafaxine HCl [Effexor] 37.5 mg PO BID 08/02/13 Venlafaxine HCl [Effexor] 100 mg PO BID 10/10/14 albuterol sulfate HFA 90 mcg/actuation aerosol inhaler 2 puff INHALATION Q4H PRN #18 g 09/26/17 umeclidinium 62.5 mcg-vilanterol 25 mcg/actuation powdr for inhalation 1 inh INHALATION Q24H #60 ea 09/26/17 clopidogrel 75 mg tablet 75 mg PO DAILY #90 tab 10/03/17 furosemide 20 mg tablet 20 mg PO QDAY #90 tab 10/03/17 metoprolol tartrate 50 mg tablet 50 mg PO BID #180 tab 10/03/17 pantoprazole 40 mg tablet,delayed release 40 mg PO DAILY #90 tab 10/03/17 simvastatin 40 mg tablet 40 mg PO QHS #90 tab 10/03/17 Spironolactone [Aldactone] 25 mg PO DAILY 10/17/17 Cefadroxil [Duracef] 500 mg PO BID #14 cap 10/19/17 Ramipril [Altace] 10 mg PO DAILY #30 cap 10/19/17 The following prescriptions were given: Ramipril [Altace] 10 mg PO DAILY #30 cap Cefadroxil [Duracef] 500 mg PO BID #14 cap Primary Care Physician: Evangelist Henriquez DO [Primary Care Provider] - Please follow up with your Primary Care Physician in: in 1 weeks Please Follow Up With: Boston Murdock MD When: IN 2 Weeks for renal stone and UTI
--- NOTE | 2017-10-19 11:46 | PCM.PROGNOTE ---
Patient Problems: Active and Suspected Problems (Last Updated 09/26/17 @ 10:18 by Yuridia Welsh) UTI (urinary tract infection) (Acute) Subjective: No pain, Feels good, afebrile - Physical Exam General: Alert, Oriented x3 Vital Signs Temp Pulse Resp BP Pulse Ox 98.0 F 63 18 123/61 H 94 10/19/17 08:33 10/19/17 08:37 10/19/17 08:33 10/19/17 08:33 10/19/17 08:33 Oxygen Delivery Method Room Air Intake and Output for Last 24 Hours 10/17/17 10/18/17 10/19/17 23:59 23:59 23:59 Intake Total 1312 / 3724 3313 / 3313 Output Total 500 / 1050 700 / 700 Balance 812 / 2674 2613 / 2613 Laboratory Tests Past 24 Hrs 10/19/17 10/19/17 06:49 06:49 WBC 20.1 H RBC 2.96 L Hgb 8.8 L Hct 26.4 L MCV 89.2 MCH 29.7 MCHC 33.3 RDW 14.9 H RDW Differential 49.1 H Plt Count 269 MPV 9.4 Sodium 136 Potassium 3.4 L Chloride 108 H Carbon Dioxide 18.0 L Anion Gap 10 BUN 28 H Creatinine 1.32 H Estim Creat Clear Calc 33.74 Est GFR (MDRD) Af Amer 51 L Est GFR (MDRD) Non-Af 42 L BUN/Creatinine Ratio 21.2 H Glucose 101 Calcium 8.2 L Medical Necessity - Tobacco Use Smoking Status: Never smoker Assessment/Plan Active and Suspected Problems (Last Updated 09/26/17 @ 10:18 by Yuridia Welsh) UTI (urinary tract infection) (Acute) Tolerating po well Hgb down to 8.8, Dilution? WBC decreasing and creat back to near nl. Plan DC to home withj appropriate ATB for Klebsiella F/U ion office in few weeks due to other stones sampson most likely will cause issues in future
--- NOTE | 2017-10-19 12:28 | PCM.DC.SUM ---
Discharge Date and Diagnosis - Problem List Patient Problems: Active and Suspected Problems (Last Updated 09/26/17 @ 10:18 by Yuridia Welsh) UTI (urinary tract infection) (Acute) Date of Admission: 10/17/17 Date of Discharge: 10/19/17 - Primary Discharge Diagnosis Active and Suspected Problems (Last Updated 09/26/17 @ 10:18 by Yuridia Welsh) UTI (urinary tract infection) (Acute) 1. Acute right ureteric colic secondary to right proximal ureteric stone 3 mm in size with history of multiple bilateral nonobstructive intrarenal calculi: Spontaneously passed ureteral stone. 2. LINDA on CKD stage 3, most probably secondary to prerenal due to dehydration and obstructive uropathy as mentioned above: Acute kidney injury resolved follow-up BMP on 10/23/2017 and follow with PCP. 3. Acute complicated Klebsiella pneumoniae UTI, with right pyelonephritis with right hydronephrosis secondary to obstructive uropathy 3 mm proximal right ureteral calculus as mentioned above: - Secondary Discharge Diagnosis Chronic Problems (Last Updated 09/26/17 @ 10:18 by Yuridia Welsh) COPD (chronic obstructive pulmonary disease) (Chronic) Hyperlipidemia (Chronic) Hypertension (Chronic) S/P coronary artery stent placement (Chronic) Hospital Course and Treatment Operations: None Summary of Care Provided: [] This is a 67 year old F with PMHx of CAD, hypertension, hyperlipidemia, history of kidney stones comes in with sudden onset of right groin pain which started this morning. Patient is undergoing workup for multiple kidney stones in the past 1. Acute right ureteric colic most probably secondary to right proximal ureteric stone 3 mm in size with history of multiple bilateral nonobstructive intrarenal calculi: The patient most probably passed a stone yesterday. patient denies abdominal pain, nausea or vomiting. No fever or chills. Stone seen it looks like about 3 mm, polygonal in shape with rough and spiky surface; repeat KUB x-ray did not show evidence of a stone in right ureteric anatomical position. Stone analysis ordered. Kidney stones, unknown etiology, multiple stones in both kidneys, largest is 1 cm, right ureter proximal stone of 3 mm: Uric acid is elevated 7.9. 2. LINDA on CKD stage 3, most probably secondary to prerenal due to dehydration and obstructive uropathy as mentioned above: Kidney function improved. Creatinine decreased to 1.3 to almost to baseline. Mild hypokalemia, potassium replaced. Patient can resume low-dose Lasix and Aldactone from tomorrow. Ramipril was decreased milligrams daily. Follow-up BMP on 10/23/2017 and follow with PCP. 3. Acute complicated UTI, with right pyelonephritis with right hydronephrosis secondary to obstructive uropathy 3 mm proximal right ureteral calculus as mentioned above: Leukocytosis. Ceftriaxone increased 1 g every 12 hourly. Urine culture shows klebsiella pneumoniae and sensitive to ceftriaxone. It seems patient has passed on as mentioned above. The patient was seen by Dr. Mccray. Advised follow-up with Dr. hurley in few weeks. Prescription given for cefadroxil for 7 days. 4. CAD s/p stent, on aspirin, Plavix,statin, will hold Aldactone, and ramipril, 5. Hypertension,initially uncontrolled secondary to pain, controlled on the floor, continue home regimen 6. Hyperlipidemia, on statin 7. Normocytic normochromic anemia most probably secondary to chronic disease reticulocyte count is within normal limit: Iron 56, TIBC low at 248, iron saturation 22%. Ferritin 327. Treat the underlying cause Discharge medication reconciliation done. Follow-up instructions completed. Total time spent, exact 35 minutes on discharge meds reconciliation, examination, review of imaging and blood test and discussion with the patient on follow-up instructions. Microbiology Past 72 Hours 10/17/17 18:25 Urine, Clean Catch Urine Culture - Final Klebsiella pneumoniae sp pneum Laboratory Results 10/19/17 06:49: WBC 20.1 H, RBC 2.96 L, Hgb 8.8 L, Hct 26.4 L, MCV 89.2, MCH 29.7, MCHC 33.3, RDW 14.9 H, RDW Differential 49.1 H, Plt Count 269, MPV 9.4 10/19/17 06:49: Sodium 136, Potassium 3.4 L, Chloride 108 H, Carbon Dioxide 18.0 L, Anion Gap 10, BUN 28 H, Creatinine 1.32 H, Estim Creat Clear Calc 33.74, Est GFR (MDRD) Af Amer 51 L, Est GFR (MDRD) Non-Af 42 L, BUN/Creatinine Ratio 21.2 H, Glucose 101, Calcium 8.2 L Clinical Impression(s) from Imaging Studies Abdomen/Pelvis CT 10/17/17 07:21 IMPRESSION: Enlargement of the right kidney with moderate right hydronephrosis and proximal right hydroureter due to a 3 mm calculus in the proximal portion of the right ureter. Multiple bilateral nonobstructive intrarenal calculi. Sigmoid diverticulosis. Electronically Signed: Huseyin Morton MD at 9:01 EDT Tel [phone], Service support , KUB X-Ray 10/18/17 09:34 IMPRESSION: Nonspecific bowel gas pattern. Multiple diverticula are identified. Electronically Signed: Don Quinones DO at 11:35 EDT , Service support , Discharge Diet: 2000 mg Sodium Diet Discharge Activity: May Not Drive - 7 days Weight Bearing Status: Weight bearing as tolerated Home Medications: Medications to take at Discharge Aspirin E.C. [Ecotrin] 81 mg PO DAILY@0800 08/02/13 Nitroglycerin [Nitrostat] 0.4 mg SUBLINGUAL Q5M PRN 08/02/13 Venlafaxine HCl [Effexor] 37.5 mg PO BID 08/02/13 Venlafaxine HCl [Effexor] 100 mg PO BID 10/10/14 albuterol sulfate HFA 90 mcg/actuation aerosol inhaler 2 puff INHALATION Q4H PRN #18 g 09/26/17 umeclidinium 62.5 mcg-vilanterol 25 mcg/actuation powdr for inhalation 1 inh INHALATION Q24H #60 ea 09/26/17 clopidogrel 75 mg tablet 75 mg PO DAILY #90 tab 10/03/17 furosemide 20 mg tablet 20 mg PO QDAY #90 tab 10/03/17 metoprolol tartrate 50 mg tablet 50 mg PO BID #180 tab 10/03/17 pantoprazole 40 mg tablet,delayed release 40 mg PO DAILY #90 tab 10/03/17 simvastatin 40 mg tablet 40 mg PO QHS #90 tab 10/03/17 Spironolactone [Aldactone] 25 mg PO DAILY 10/17/17 Cefadroxil [Duracef] 500 mg PO BID #14 cap 10/19/17 Ramipril [Altace] 10 mg PO DAILY #30 cap 10/19/17 Following Prescrptions Were Given to Patient: Ramipril [Altace] 10 mg PO DAILY #30 cap Cefadroxil [Duracef] 500 mg PO BID #14 cap Primary Care Physician: Evangelist Henriquez DO [Primary Care Provider] - Please follow up with your Primary Care Physician in: in 1 weeks Please Follow Up With: Boston Murdock MD When: IN 2 Weeks for renal stone and UTI Medical Necessity - Tobacco Use Smoking Status: Never smoker Meaningful Use Info Meaningful Use Diagnoses (Choose all that apply): None applicable Code Visit Inpatient E&M: 54306 [facility] Hosp
[2017-10-19 13:09] VITALS: BP 124/69; PULSE 60; RESP 18; TEMP 36.8; O2SAT 94
[2017-10-28 12:08] LABS: Ca Oxalate, Monohydrate 95 % (.)
== END 2017-10-19 13:47 | disposition home or self-care (01) | DRG 694 ==
LOC: ED 10:28 → MS3 10:32
PROVIDERS: Urology; Admitting Provider Internal Medicine; Emergency Provider Emergency Medicine; Family Provider Student in an Organized Health Care Education/Training Program; PCP Student in an Organized Health Care Education/Training Program; Visit Provider Internal Medicine
DX: N13.2 Hydronephrosis with renal and ureteral calculous obstruction (principal); I13.0 Hypertensive heart and chronic kidney disease with heart failure and stage 1 through stage 4 chronic kidney disease, or unspecified chronic kidney disease; N13.6 Pyonephrosis; B96.1 Klebsiella pneumoniae [K. pneumoniae] as the cause of diseases classified elsewhere; N18.3 Chronic kidney disease, stage 3 (moderate); I50.9 Heart failure, unspecified; N17.9 Acute kidney failure, unspecified; E86.0 Dehydration; D72.829 Elevated white blood cell count, unspecified; D64.9 Anemia, unspecified; I25.10 Atherosclerotic heart disease of native coronary artery without angina pectoris; J44.9 Chronic obstructive pulmonary disease, unspecified; G47.33 Obstructive sleep apnea (adult) (pediatric); E78.5 Hyperlipidemia, unspecified; Z79.02 Long term (current) use of antithrombotics/antiplatelets; Z79.82 Long term (current) use of aspirin; Z79.51 Long term (current) use of inhaled steroids; Z79.899 Other long term (current) drug therapy; Z87.440 Personal history of urinary (tract) infections; Z95.1 Presence of aortocoronary bypass graft; Z95.5 Presence of coronary angioplasty implant and graft; Z87.442 Personal history of urinary calculi
CPT/HCPCS: 36415; 74018; 74176; 80048; 81001; 82360; 82728; 83540; 83550; 84550; 85025; 85027; 85045; 87077; 87086; 87088; 87186; 94640; 97161; 97166; 97802; 99284; J7030; A4216; J2405

== ENCOUNTER → 2017-10-28 08:50 | Outpatient (CLI) | payer MEDICARE, OTHER, SELFPAY ==
--- NOTE | 2017-10-28 08:52 | ECHOD_ITS ---
Reason For Study: CHD Procedure This was a 2D Doppler, Color Flow transthoracic echocardiogram. The exam was of poor technical quality due to body habitus. The study was technically difficult. Contrast injection was performed. Exam performed in department. Left Ventricle Normal LV size. Left ventricular systolic function is normal. The estimated ejection fraction is 55 %. There is evidence of diastolic dysfunction. No regional wall motion abnormalities noted. Right Ventricle Normal RV size. Normal systolic function. Atria Mild to moderate left atrial enlargement. Normal right atrium. No doppler evidence for ASD. Mitral Valve There is mild mitral annular calcification. Extension of the mitral annular calcification onto the base of the mitral valve leaflet. Trivial mitral valve insufficiency. Tricuspid Valve Normal tricuspid valve. Trivial tricuspid valve insufficiency. Right ventricular systolic pressure estimated to be 33 mmHg. Aortic Valve Trisinus/trileaflet aortic valve. Mild diffuse aortic valve thickening. Pulmonic Valve The pulmonic valve is not well visualized. Great Vessels Normal sized aortic root. Pericardium/Pleural No pericardial effusion. Medication 22 gauge I.V. with prn adaptor inserted into left arm. Diluted definity 4ml given slow IV push to enhance endocardial definition. MMode/2D Measurements & Calculations LVIDd: 4.6 cm IVSd: 1.2 cm Ao root diam: 3.6 cm LVIDs: 3.7 cm LVPWd: 1.2 cm RVDd: 2.9 cm FS: 21.3 % LAV(MOD-bp): 61.5 ml EDV(MOD-sp4): 82.3 ml EDV(MOD-sp2): 73.7 ml LAV(MOD-bp) Indexed: 29.4 ml/m2 ESV(MOD-sp4): 35.1 ml EF(MOD-sp2): 63.9 % LAV(MOD-sp2): 63.6 ml EF(MOD-sp4): 57.3 % LAV(MOD-sp4): 51.7 ml SV(MOD-sp4): 47.2 ml SV(MOD-sp2): 47.1 ml LA A4 area: 17.8 cm2 RA A4 area: 10.2 cm2 Doppler Measurements & Calculations MV E max kevin: 67.6 cm/sec Lat Peak E' Kevin: 5.6 cm/sec Med Peak E' Kevin: 4.5 cm/sec MV A max kevin: 86.5 cm/sec E/E' lat: 12.2 E/E' med: 15.2 MV E/A: 0.78 Ao V2 max: 135.0 cm/sec LV V1 max: 102.2 cm/sec PA V2 max: 104.7 cm/sec Ao max P.3 mmHg LV V1 max P.2 mmHg TR max kevin: 271.4 cm/sec TR max P.6 mmHg Interpretation Summary The study was technically difficult. Contrast injection was performed. Left ventricular systolic function is normal. The estimated ejection fraction is 55 %. Mild to moderate left atrial enlargement. There is mild mitral annular calcification. Extension of the mitral annular calcification onto the base of the mitral valve leaflet. Trivial mitral valve insufficiency. Trivial tricuspid valve insufficiency. Mild diffuse aortic valve thickening. Right ventricular systolic pressure estimated to be 33 mmHg. There is evidence of diastolic dysfunction. Ordering Physician: Noel Huerta Referring Physician: SHIRLEY GONSALES Performed By: Radha Jett, RDCS, RVT
[2017-10-28 12:05] LABS: Anion Gap 11 (5-15); BUN 45 mg/dL (7-18); BUN/Creat Ratio 22.1 RATIO (10-20); Calcium,Total 9.4 mg/dL (8.5-10.1); Chloride 105 mmol/L (98-107); Creatinine, Serum 2.04 mg/dL (0.55-1.02); EST Glomerular Filtration Rate 26 mL/min (>60); Est Glom Filt Rate - Afr Amer 31 mL/min (>60); Glucose 145 mg/dL (74-106); Potassium 5.1 mmol/L (3.5-5.1); Sodium Level 137 mmol/L (136-145)
== END ==
PROVIDERS: Family Provider Student in an Organized Health Care Education/Training Program; PCP Student in an Organized Health Care Education/Training Program; Visit Provider Internal Medicine Cardiovascular Disease
DX: I25.10 Atherosclerotic heart disease of native coronary artery without angina pectoris (principal); E87.6 Hypokalemia; R06.02 Shortness of breath
CPT/HCPCS: 36415; 80048; 93306; Q9957; A4216; C8929

== ENCOUNTER 2019-06-25 18:19 | Inpatient (IN) | payer MEDICARE, OTHER, SELFPAY ==
[2019-06-22 15:00] VITALS: BMI 38.2
[2019-06-25] VITALS (7 sets, daily range): BP systolic 75–153; BP diastolic 44–83; PULSE 60–71; RESP 15–21; TEMP 36.4–36.8; O2SAT 98–100; BMI 39.4; BMI 38.8
--- NOTE | 2019-06-25 19:13 | EKG12_ITS ---
Test Reason : SYNCOPE Blood Pressure : / mmHG Vent. Rate : 062 BPM Atrial Rate : 062 BPM P-R Int : 178 ms QRS Dur : 138 ms QT Int : 454 ms P-R-T Axes : -23 -45 122 degrees QTc Int : 460 ms Normal sinus rhythm Left axis deviation Left ventricular hypertrophy with QRS widening and repolarization abnormality Abnormal ECG Confirmed by GILMAR MCDONNELL, MAIN ([id number]), assistant film editor AQUILES CULLEN ([id number]) on 06/28/2019 12:16:46 PM Referred By: SARAH Confirmed By:MAIN SCHAFER MD
--- NOTE | 2019-06-25 19:54 | RAD_ITS ---
HISTORY: SYNCOPE EXAM: XR Chest 2 Views: COMPARISON: September 07, 2017 FINDINGS: # of images incl. paperwork: 2 Multiple sternal wires. Mediastinal clips. Lungs are clear. Heart is not enlarged. No acute osseous pathology perceived. Pulmonary vascularity is distinct. No effusions. RAD/Chest PA and Lateral IMPRESSION: No change. No acute cardiopulmonary disease perceived. at 2035 Reported and signed by: Layo Edwards MD Electronically Signed: Layo Edwards MD at 20:34 EST Tel , Service support ,
[2019-06-25 19:55] LABS: Absolute Lymphocyte Count 1.79 X10^3/uL (0.83-4.51); Absolute Neutrophil Count 8.4 X10^3/uL (2.0-7.7); Basophil# 0.02 X10^3/uL; Basophil% 0.2 % (0-1); Eosinophil# 0.06 X10^3/uL; Eosinophils% 0.5 % (0-5); Hematocrit 34.4 % (37-47); Lymphocyte # 1.79 X10^3/ul (4.0); Lymphocyte % 16.1 % (19-41); Mean Corpuscular Volume 93.7 fL (81-99); Mean Platelet Vol. 9.7 fl (6.2-12.0); Monocyte# 0.81 X10^3/uL; Monocyte% 7.3 % (0-10); NRBC Flagged by Analyzer 0 % (0-5); Neutrophil # 8.36 X10^3/uL (2.7-7.7); Neutrophil % 75.3 % (47-70); Platelet Count 259 K/mm3 (150-450); RBC Distribution Width SD 58.4 fl (35.1-43.9); Red Blood Count 3.67 M/mm3 (4.2-5.4); White Blood Count 11.1 K/mm3 (4.4-11.0)
--- NOTE | 2019-06-25 20:32 | ED.VIS.GEN ---
History of Present Illness Chief Complaint: Syncope Informant: Patient, Family Onset: Weeks - 1 Context: Gradual Onset Timing: Intermittent Narrative: Patient is a 69-year-old female presenting after an episode of syncope. Patient states of the past week she has been dizzy with standing. Today she was trying to get off her couch and stood up slowly when she suddenly passed out. Patient woke up on her couch. She notes she did feel dizzy had a time but denies any tunnel vision, diaphoresis or other associated symptoms. She is not having associated chest pain. She is followed with her electrical supervisor, Dr. Huerta, who scheduled a stress test for her next week. He also recently decreased her metoprolol to 12.5 twice daily from 25 twice daily because of bradycardia. Patient was started on Wellbutrin as well as Lexapro about 3 weeks ago. Patient also states she is on the last day of Keflex for UTI. Daughter is especially concerned because patient lives home alone. Patient currently states she feels fine but does become symptomatic when she tries to stand up. Past Medical History - Allergies and Home Meds Allergies/Adverse Reactions: Allergies promethazine HCl [From Phenergan] Allergy (Verified 06/25/19 18:20) Itching Primary Care Physician: Evangelist Henriquez DO [Primary Care Provider] - Past Medical History: - - Pretension, coronary artery disease, UTIs, TATIANA, COPD, hyperlipidemia Surgical History: adenoidectomy, cholecystectomy, herniorrhaphy, - - Cardiac stent Lives: Alone Smoking Status: Never smoker - Family History Maternal Family History: Family History (Last Reviewed 06/22/19 @ 15:09 by Tootie Barahona) Father Colon cancer Mother Cancer Family History: Reports: Cancer - lung, Heart Disease Paternal Family History: Family History (Last Reviewed 06/22/19 @ 15:09 by Tootie Barahona) Father Colon cancer Mother Cancer Family History: Reports: Cancer - liver Review of Systems General: Reports: - - Dizziness. Denies: Chills, Fever, Sweats Eyes: Denies: Visual changes - bilaterally, Diplopia ENT: Denies: Rhinorrhea, Sore throat Cardiovascular: Denies: Chest pain, Palpitations Respiratory: Denies: Dyspnea, Cough, Dyspnea on exertion Gastrointestinal: Denies: Abdominal pain, Nausea, Vomiting, Diarrhea, Melena, Hematochezia Genitourinary: Denies: Dysuria, Hematuria, Frequency Musculoskeletal: Denies: Back pain, Extremity Pain Skin: Denies: Rash, Wounds Neurological: Denies: Headache, Weakness, Numbness Physical Exam Vital Signs/Narrative: Vital Signs Temp Pulse Pulse Pulse Pulse Resp BP 06/25/19 19:43 63 64 71 06/25/19 18:46 68 21 H 136/63 H 06/25/19 18:20 97.5 F L 71 18 153/83 H BP BP BP Pulse Ox 06/25/19 19:43 131/57 H 118/65 75/44 L 06/25/19 18:46 99 06/25/19 18:20 100 Inital Vital Signs reviewed: Yes General: Well nourished, Well developed, No Acute Distress Head: Normocephalic, Atraumatic Eyes: Perrl, EOMI ENT: Moist mucous membranes, No rhinorrhea Neck: Supple, Nontender, No JVD Cardiovascular: Regular rate, Regular rhythm, No murmurs Respiratory: No distress, CTA bilaterally, Chest nontender Abdomen: Soft, Nontender, Nondistended, Normal bowel sounds Back: Nontender, Normal Inspection Extremities: Nontender, No edema Skin: Normal color, No rash Neurological: Alert, Oriented x3, Cranial nerves II-XII grossly intact, Normal Strength, Normal Sensation Psychological: Normal affect, Normal Mood Diagnostic/Tx/Re-eval - Rhythm Strip Rhythm Strip: Sinus Rhythm Rate: 62 Ectopy: None - EKG Initial EKG Interpretation: Sinus Rhythm, - - Rate of 62 Normal intervals Left axis deviation Normal ST segments QRS 138 No change prior to prior EKG on 09/06/2017 - Medical Decision Making Patient is evaluated after syncopal episode. She is nontoxic and in no acute distress. Her vital signs are normal. Patient been having dizziness over the past week which culminated in a syncopal episode today. Patient landed on her couch and did not fall or hit her head. She has no signs of trauma. Patient was orthostatic positive in the emergency room. This could be why she had a syncopal episode. She is given a liter of fluid after positive orthostatics. Troponin is negative in the emergency room. Patient is on we have a source of infection. Her white blood cell count is way minimally elevated. Patient is just completing a course of antibiotics for UTI. Patient will be admitted for further cardiac evaluation as well as IV fluids. She is agreeable with this plan. Then this is especially prudent as patient was home alone I do not want her to have a fall and a more serious injury while at home. Case discussed with admitting physician, Dr. Sood who is agreeable with this. Patient stable for PCU at time of disposition. ED Disposition - Plan for ED Patient: Disposition: Acute Care [facility] Diagnosis: Syncope and collapse, Orthostatic hypotension Referrals: Evangelist Henriquez DO [Primary Care Provider] -
[2019-06-25] MEDS: 0.9% Normal Saline 1,000 ML 999 ML IV (20:40)
[2019-06-25 21:03] LABS: Anion Gap 9 (5-15); BUN 42 mg/dL (7-18); BUN/Creat Ratio 21.4 RATIO (10-20); Calcium,Total 9.4 mg/dL (8.5-10.1); Chloride 111 mmol/L (98-107); Creatinine, Serum 1.96 mg/dL (0.55-1.02); EST Glomerular Filtration Rate 27 mL/min (>60); Est Glom Filt Rate - Afr Amer 32 mL/min (>60); Estimated Creatinine Clearance 21.12 ml/min; Glucose 118 mg/dL (74-106); Potassium 4.3 mmol/L (3.5-5.1); Sodium Level 137 mmol/L (136-145)
--- NOTE | 2019-06-25 21:59 | HP.PCM_ITS ---
Problem List (1) Syncope Status: Acute (2) Orthostatic hypotension Status: Acute (3) Essential hypertension Status: Chronic (4) Atherosclerotic heart disease of [place] coronary artery without angina pectoris Status: Chronic Qualifiers: [place] vs. transplanted heart: [place] heart Qualified Code(s): I25.10 - Atherosclerotic heart disease of [place] coronary artery without angina pectoris (5) TATIANA (obstructive sleep apnea) Status: Chronic (6) COPD (chronic obstructive pulmonary disease) Status: Chronic Qualifiers: Emphysema type: unspecified (7) Hyperlipidemia Status: Chronic Qualifiers: Hyperlipidemia type: unspecified Qualified Code(s): E78.5 - Hyperlipidemia, unspecified (8) S/P coronary artery stent placement Status: Chronic Comment: S/P balloon angioplasty and drug-eluting stent placement to proximal LCx in 05/28/2016. History of Present Illness Date of Admission: 06/25/19 Chief Complaint: syncope The patient is a 69 year old F with a significant history of CAD status post stents and CABG; obstructive sleep apnea and chronic diastolic heart failure who presented to the emergency department with syncope. His syncopal episode occurred while she stood up from a sitting position. Associated with symptoms is lightheadedness. Further she reports tinnitus. At the emergency department patient was found to have orthostatic hypotension. She follows up Dr. Huerta, cardiology. Reportedly she has a stress test; echocardiogram and heart monitoring set up for Friday06-29-2019. She denies that these test has been set up because of syncope. Recently his metoprolol dose was de-escalated down because of bradycardia. Past Medical History Past Medical History (Chronic Problems): Chronic Problems (Last Reviewed 06/26/19 @ 01:46 by Barrie Andres MD) Essential hypertension (Chronic) Atherosclerotic heart disease of [place] coronary artery without angina pectoris (Chronic) TATIANA (obstructive sleep apnea) (Chronic) COPD (chronic obstructive pulmonary disease) (Chronic) Hyperlipidemia (Chronic) S/P coronary artery stent placement (Chronic ~05/28/16) S/P balloon angioplasty and drug-eluting stent placement to proximal LCx in 05/28/2016. Medical History: Medical History (Last Reviewed 06/26/19 @ 01:50 by Barrie Andres MD) Essential hypertension (Chronic) I10 Atherosclerotic heart disease of [place] coronary artery without angina pectoris (Chronic) I25.10 UTI (urinary tract infection) (Inactive) N39.0 TATIANA (obstructive sleep apnea) (Chronic) G47.33 Shortness of breath (Inactive) R06.02 Acute exacerbation of chronic obstructive pulmonary disease (COPD) (Inactive) J44.1 COPD (chronic obstructive pulmonary disease) (Chronic) J44.9 Hyperlipidemia (Chronic) E78.5 Kidney stone N20.0 Abnormal myocardial perfusion study R94.39 Abnormal pulmonary function test R94.2 Atherosclerosis of coronary 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 I25.810 Chronic diastolic (congestive) heart failure I50.32 OWUSU (dyspnea on exertion) R06.09 Depression F32.9 Dyspnea R06.00 Hemorrhoids K64.9 Nonspecific abnormal unspecified cardiovascular function study R94.30 TATIANA (obstructive sleep apnea) G47.33 Obesity E66.9 Fracture of both arms S42.301A, S42.302A Allergies promethazine HCl [From Phenergan] Allergy (Verified 06/25/19 18:20) Itching Home Medications: Ambulatory Orders Medication Instructions Recorded Aspirin E.C. [Ecotrin] 81 mg PO DAILY 08/02/13 Nitroglycerin (INPATIENT USE) 0.4 mg SUBLINGUAL Q5M PRN 08/02/13 [Nitrostat] clopidogrel 75 mg tablet 75 mg PO DAILY #90 tab 09/21/18 simvastatin 40 mg tablet 40 mg PO QHS #90 tab 09/21/18 spironolactone 25 mg tablet 25 mg PO DAILY #90 tab 02/25/19 acetaminophen 325 mg tablet 650 mg PO Q8H PRN tab 06/18/19 bupropion HCl 150 mg tablet,12 hr 150 mg PO BID 06/18/19 sustained-release metoprolol tartrate 25 mg tablet 12.5 mg PO BID tab 06/22/19 nitrofurantoin macrocrystal 100 mg 100 mg PO DAILY cap 06/22/19 capsule omeprazole 20 mg capsule,delayed 20 mg PO QHS 06/22/19 release Escitalopram Oxalate [Lexapro] 10 mg PO DAILY 06/25/19 Ramipril 1 cap PO BID 06/25/19 Surgical History: Surgical History (Last Reviewed 06/26/19 @ 01:46 by Barrie Andres MD) S/P coronary artery stent placement (Chronic) Onset Date: ~05/28/16 Z95.5 S/P balloon angioplasty and drug-eluting stent placement to proximal LCx in 05/28/2016. 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 Denies: Chest Pain, Palpitations Respiratory: Denies: Cough, Shortness of breath at rest, Sputum production Gastrointestinal: Denies: Abdominal Pain, Nausea, Vomiting Genitourinary: Denies: Dysuria Musculoskeletal: Denies: Joint Pain, Joint Tenderness Skin: Denies: Rash, Wounds Neurological: Denies: Numbness, Tingling, Focal weakness Psychiatric: Denies: Anxiety, Depression, Homicidal Ideations, Suicidal Ideations Hematologic/ Lymphatic: Denies: Easy Bruising, Easy Bleeding VTE Information - Inpt Only VTE Present on Admission: No VTE Mechan Device Prophylaxis: None VTE Pharm Prophylaxis ordered?: Yes Patient Problems: Active and Suspected Problems (Last Reviewed 06/26/19 @ 01:50 by Barrie Andres MD) Orthostatic hypotension (Acute) Syncope (Acute) - Physical Exam Vitals/I&O's: Vital Signs Temp Pulse Resp BP Pulse Ox 97.5 F L 60 15 130/66 H 98 06/25/19 18:20 06/25/19 20:36 06/25/19 20:36 06/25/19 20:36 06/25/19 20:36 Oxygen Delivery Method Room Air Weight: 97.976 kg Body Mass Index (BMI) 39.4 General: Alert, Oriented x3, Cooperative HEENT: Atraumatic, PERRLA, EOMI, Normocephalic Neck: Supple, Trachea Midline Lungs: Clear to auscultation, Normal air movement, No rhonchi, No wheeze, No rales Cardiovascular: Regular rate, Normal S1, Normal S2 Abdomen: Bowel Sounds Present, Soft, Non Tender Extremities: No edema, Capillary Refill Less than 3 Seconds Skin: No rashes, No breakdown Musculoskeletal: No Tenderness to Palpation of Joints or Extremities Neurological: Cranial nerves II-XII grossly intact Psych/Mental Status: Normal Affect, Appropriate Laboratory Results 06/25/19 19:40: WBC 11.1 H, RBC 3.67 L, Hgb 11.0 L, Hct 34.4 L, MCV 93.7, MCH 30.0, MCHC 32.0, RDW Std Deviation 58.4 H, RDW Coeff of Abelardo 17.0 H, Plt Count 259, MPV 9.7, Immature Gran % (Auto) 0.600, Neut % (Auto) 75.3 H, Lymph % (Auto) 16.1 L, [place] % (Auto) 7.3, Eos % (Auto) 0.5, Baso % (Auto) 0.2, Absolute Neuts (auto) 8.4 H, Absolute Lymphs (auto) 1.79, Nucleated RBC % 0 06/25/19 19:40: Sodium 137, Potassium 4.3, Chloride 111 H, Carbon Dioxide 17.0 L , Anion Gap 9, BUN 42 H, Creatinine 1.96 H, Estim Creat Clear Calc 21.12, Est GFR (MDRD) Af Amer 32 L, Est GFR (MDRD) Non-Af 27 L, BUN/Creatinine Ratio 21.4 H , Glucose 118 H, Calcium 9.4 Assessment/Plan All Active Problems (Last Reviewed 06/26/19 @ 01:50 by Barrie Andres MD) Orthostatic hypotension (Acute) Syncope (Acute) The patient is a 69 year old F with a significant history of CAD status post stents and CABG; obstructive sleep apnea and chronic diastolic heart failure who presented to the emergency department with syncope and found to have positive orthostatic findings. Syncope EKG at the emergency department showed left bundle branch block unchanged from previous. We will get an echocardiogram. Orthostatic vitals. Got IV fluid bolus at the emergency department. Continue maintenance IV hydration. Trend BMP. Trend troponin. LINDA on CKD stage III On presentation her creatinine was 1.96. Review of old records showed cre atinine on 08/05/2018 on clinisync was 1.12. Likely second to hypovolemia. Bun on presentation was 42. BUN over creatinine is 21.4. IV hydration as above Trend BMP. Hold home ISAMAR inhibitors and spironolactone.. Also on suppressive therapy with Macrodantin for UTI. Hold Macrodantin for now secondary to LINDA. Hypertension On presentation her blood pressure was not within goal Metoprolol continued. Ramipril and spironolactone held secondary to LINDA. Trend blood pressures and adjust blood pressure medication as necessary. Chronic UTI Macrodantin held as above. Recently completed Keflex for acute UTI. Depression/anxiety Bupropion and Lexapro continued. Tinnitus If tinnitus persist patient can follow-up with ENT on discharge. DVT prophylaxis Subcutaneous lovenox Code Visit OBSV E&M: 22261 Initial observation care L2
--- NOTE | 2019-06-25 22:58 | ECHOD_ITS ---
Reason For Study: Syncope/Near Syncope Procedure This was a 2D Doppler, Color Flow transthoracic echocardiogram. Exam performed portable in patient room. Left Ventricle Normal LV size. Left ventricular systolic function is normal. The estimated ejection fraction is 55 %. Stage 1 diastolic dysfunction. No regional wall motion abnormalities noted. Right Ventricle Normal RV size. Normal systolic function. Atria The left atrium is moderately enlarged. Normal right atrium. Mitral Valve There is mild mitral annular calcification. Mild (1+) eccentric mitral valve insufficiency. Tricuspid Valve Normal tricuspid valve. Mild tricuspid valve insufficiency. Pulmonary artery systolic pressure is 25 mmHg. Aortic Valve Normal aortic valve. Pulmonic Valve Normal pulmonic valve. Mild (1+) pulmonic valve insufficiency. Great Vessels Normal aortic root. The pulmonary artery is normal size. Normal inferior vena cava. Pericardium/Pleural No pericardial effusion. MMode/2D Measurements & Calculations LVIDd: 5.0 cm IVSd: 1.3 cm Ao root diam: 3.5 cm LVIDs: 3.1 cm LVPWd: 1.0 cm RVDd: 3.2 cm FS: 37.5 % LAV(MOD-bp): 65.1 ml LVAd ap4: 26.2 cm2 SV(MOD-sp4): 55.4 ml LAV(MOD-bp) Indexed: 33.2 ml/m2 EDV(MOD-sp4): 81.1 ml LAV(MOD-sp2): 55.5 ml EDV(sp4-el): 84.7 ml LAV(MOD-sp4): 74.2 ml LVAs ap4: 13.0 cm2 ESV(MOD-sp4): 25.7 ml ESV(sp4-el): 25.6 ml EF(MOD-sp4): 68.3 % EF(sp4-el): 69.8 % SV(sp4-el): 59.1 ml LA A4 area: 24.3 cm2 LA dimension(2D): 4.1 cm RA A4 area: 13.8 cm2 Doppler Measurements & Calculations MV E max kevin: 82.3 cm/sec Lat Peak E' Kevin: 8.6 cm/sec Med Peak E' Kevin: 5.6 cm/sec MV A max kevin: 99.7 cm/sec E/E' lat: 9.5 E/E' med: 14.8 MV E/A: 0.83 Ao V2 max: 141.5 cm/sec LV V1 max: 117.0 cm/sec PA V2 max: 131.0 cm/sec Ao max P.0 mmHg LV V1 max P.5 mmHg Ao V2 mean: 87.7 cm/sec Ao mean P.5 mmHg Ao V2 VTI: 29.5 cm PI end-d kevin: 97.3 cm/sec TR max kevin: 233.3 cm/sec TR max P.8 mmHg Interpretation Summary Normal LV size. Left ventricular systolic function is normal. The estimated ejection fraction is 55 %. Stage 1 diastolic dysfunction. The left atrium is moderately enlarged. Mild tricuspid valve insufficiency. Ordering Physician: Barrie Andres Referring Physician: Evangelist Castro Performed By: Wilma Gustafson, FIDEL, RVT
[2019-06-25 23:08] LABS: Bacteria 0 SEEN /hpf (None Seen); Mucous, Urine 0 SEEN /hpf (<or=2+); Red Blood Cells-Urine 0 SEEN /hpf (0-5); Squamous Epithelial Cells - UA 0 SEEN /hpf (5-10)
[2019-06-25 23:25] LABS: Color, Urine Yellow (Yellow); Glucose, Dipstick Normal (Normal); Ketone-Dipstick 5 mg/dl (Negative); Leukocyte Esterase-Dipstick 100 /ul (Negative); Nitrite-Dipstick Negative (Negative); Occult Blood-Urine Negative /ul (Negative); Protein-Dipstick Negative (Negative); Urine Bilirubin Dipstick Negative (Negative); Urine Clarity Clear (Clear); Urine Urobilinogen Normal (Normal)
[2019-06-25 23:31] LABS: White Blood Cells 0-5 SEEN /hpf (0-5)
[2019-06-26] VITALS (12 sets, daily range): BP systolic 84–142; BP diastolic 50–67; PULSE 57–70; RESP 16–22; TEMP 36.6–36.9; O2SAT 96–100
[2019-06-26] MEDS: 0.9% Normal Saline 1,000 ML 150 ML IV ×2 (00:08→05:37)
[2019-06-26] MEDS: 0.9% Saline Lock 10 ML Syringe IV ×2 (00:09→14:37)
[2019-06-26] MEDS: Atorvastatin Calcium 20 MG Tablet PO ×2 (00:12→21:05)
[2019-06-26] MEDS: Pantoprazole Sodium 20 MG Tablet PO ×2 (00:12→09:42)
[2019-06-26] MEDS: Clopidogrel Bisulfate 75 MG Tablet PO ×2 (00:13→09:42)
[2019-06-26] MEDS: Metoprolol Tartrate 25 MG Tablet 12.5 MG PO ×3 (00:13→21:05)
[2019-06-26] MEDS: buPROPion (SR) 150 MG Tablet.SA PO ×3 (00:14→21:05)
[2019-06-26 06:40] LABS: Absolute Lymphocyte Count 2.92 X10^3/uL (0.83-4.51); Absolute Neutrophil Count 5.7 X10^3/uL (2.0-7.7); Basophil# 0.03 X10^3/uL; Basophil% 0.3 % (0-1); Eosinophil# 0.08 X10^3/uL; Eosinophils% 0.8 % (0-5); Hematocrit 30.7 % (37-47); Hemoglobin 9.8 g/dL (12.0-15.0); Lymphocyte # 2.92 X10^3/ul (4.0); Lymphocyte % 30.7 % (19-41); Mean Corp Hgb Conc 31.9 g/dL (32-36); Mean Corpuscular Hgb 30.5 pg (27.0-32.0); Mean Corpuscular Volume 95.6 fL (81-99); Mean Platelet Vol. 9.9 fl (6.2-12.0); Monocyte# 0.77 X10^3/uL; Monocyte% 8.1 % (0-10); NRBC Flagged by Analyzer 0 % (0-5); Neutrophil # 5.65 X10^3/uL (2.7-7.7); Neutrophil % 59.6 % (47-70); Platelet Count 215 K/mm3 (150-450); RBC Distribution Width CV 16.8 % (11.6-14.6); RBC Distribution Width SD 59.3 fl (35.1-43.9); Red Blood Count 3.21 M/mm3 (4.2-5.4); White Blood Count 9.5 K/mm3 (4.4-11.0)
[2019-06-26 07:05] LABS: Anion Gap 8 (5-15); BUN 35 mg/dL (7-18); Calcium,Total 8.7 mg/dL (8.5-10.1); Chloride 116 mmol/L (98-107); Creatinine, Serum 1.52 mg/dL (0.55-1.02); EST Glomerular Filtration Rate 36 mL/min (>60); Est Glom Filt Rate - Afr Amer 43 mL/min (>60); Estimated Creatinine Clearance 27.24 ml/min; Glucose 95 mg/dL (74-106); Potassium 4.1 mmol/L (3.5-5.1); Sodium Level 141 mmol/L (136-145)
[2019-06-26] MEDS: Aspirin E.C. 81 MG Tablet PO (09:42)
[2019-06-26] MEDS: Escitalopram Oxalate 10 MG Tablet PO (09:42)
[2019-06-26] MEDS: Enoxaparin 30 MG/0.3 ML Syringe SC (11:16)
--- NOTE | 2019-06-26 13:05 | PCM.PN.HOSP ---
<Peter Adames - Last Filed: 06/26/19 13:05> Patient Problems: Active and Suspected Problems (Last Reviewed 06/26/19 @ 01:50 by Barrie Andres MD) Orthostatic hypotension (Acute) Syncope (Acute) Reason for Visit: Syncope Subjective: Yesterday the patient stood up, became lightheaded and passed out. In the ER and this AM she had + orthostatic vitals, hypotension. Today she has been up without LH / Dizzy. Patient recently had metoprolol decreased for hypotension. No other increased in medications. No CP, palpitations. No LE edema. No N/V. No recently illness/infection. Vitals/I&O's: Vital Signs Temp Pulse Resp BP Pulse Ox 98.4 F 66 16 132/60 H 97 06/26/19 09:39 06/26/19 09:42 06/26/19 09:39 06/26/19 09:39 06/26/19 09:39 Oxygen Delivery Method Room Air Weight: 212 lb 4.882 oz Body Mass Index (BMI) 38.8 Orthostatic Vital Signs Start: 06/26/19 00:47 Freq: 0500 Status: Active Protocol: Activity Type Activity Date Activity User E-Sign Co-Sign Detail Recorded Client Recorded Date Recorded By Document 06/26/19 05:00 [facility] [id number] 06/26/19 05:33 [facility] 06/26/19 05:00 Orthostatic Vitals Standing -Blood Pressure (90/60-120/80 mm Hg) 84/50 L -Extremity Use Left Arm -Pulse Rate (60-100 beats/min) 70 Sitting -Blood Pressure (90/60-120/80 mm Hg) 134/66 H -Extremity Use Left Arm -Pulse Rate (60-100 beats/min) 64 Lying -Blood Pressure (90/60-120/80 mm Hg) 142/58 H -Extremity Use Left Arm -Pulse Rate (60-100 beats/min) 59 L Intake and Output for Last 24 Hours 06/24/19 06/25/19 06/26/19 23:59 23:59 23:59 Intake Total 1000 / 1000 1805.0 / 1805.0 Output Total 300 / 300 Balance 1000 / 1000 1505.0 / 1505.0 General: Alert, Oriented x3, Cooperative HEENT: Atraumatic, PERRLA, EOMI, Normocephalic Neck: Supple, No JVD, Negative Carotid Bruits Lungs: Clear to auscultation, Normal air movement Cardiovascular: Regular rate, Murmur - 2/6 systolic murmur best heard at RSB Abdomen: Bowel Sounds Present, Soft, Non Tender Extremities: No edema, Capillary Refill Less than 3 Seconds Skin: No rashes, No breakdown Musculoskeletal: No Tenderness to Palpation of Joints or Extremities Neurological: Cranial nerves II-XII grossly intact Psych/Mental Status: Normal Affect, Appropriate, Alert and oriented to time, place, person, mood and affect Laboratory Results 06/25/19 19:40: WBC 11.1 H, RBC 3.67 L, Hgb 11.0 L, Hct 34.4 L, MCV 93.7, MCH 30.0, MCHC 32.0, RDW Std Deviation 58.4 H, RDW Coeff of Abelardo 17.0 H, Plt Count 259, MPV 9.7, Immature Gran % (Auto) 0.600, Neut % (Auto) 75.3 H, Lymph % (Auto) 16.1 L, Clare % (Auto) 7.3, Eos % (Auto) 0.5, Baso % (Auto) 0.2, Absolute Neuts (auto) 8.4 H, Absolute Lymphs (auto) 1.79, Nucleated RBC % 0 06/25/19 19:40: Sodium 137, Potassium 4.3, Chloride 111 H, Carbon Dioxide 17.0 L, Anion Gap 9, BUN 42 H, Creatinine 1.96 H, Estim Creat Clear Calc 21.12, Est GFR (MDRD) Af Amer 32 L, Est GFR (MDRD) Non-Af 27 L, BUN/Creatinine Ratio 21.4 H, Glucose 118 H, Calcium 9.4 06/25/19 22:57: Urine Color Yellow, Urine Clarity Clear, Urine pH 6.0, Ur Specific [place] 1.020, Urine Protein Negative, Urine Glucose (UA) Normal, Urine Ketones 5 H, Urine Occult Blood Negative, Urine Nitrite Negative, Urine Bilirubin Negative, Urine Urobilinogen Normal, Ur Leukocyte Esterase 100 H, Urine RBC 0 SEEN, Urine WBC 0-5 SEEN, Ur Squamous Epith Cells 0 SEEN, Urine Bacteria 0 SEEN, Urine Mucus 0 SEEN 06/25/19 23:20: Troponin I < 0.015 06/26/19 01:54: Troponin I < 0.015 06/26/19 05:16: WBC 9.5, RBC 3.21 L, Hgb 9.8 L, Hct 30.7 L, MCV 95.6, MCH 30.5, MCHC 31.9 L, RDW Std Deviation 59.3 H, RDW Coeff of Abelardo 16.8 H, Plt Count 215, MPV 9.9, Immature Gran % (Auto) 0.500, Neut % (Auto) 59.6, Lymph % (Auto) 30.7, Clare % (Auto) 8.1, Eos % (Auto) 0.8, Baso % (Auto) 0.3, Absolute Neuts (auto) 5.7, Absolute Lymphs (auto) 2.92, Nucleated RBC % 0 06/26/19 05:16: Sodium 141, Potassium 4.1, Chloride 116 H, Carbon Dioxide 17.0 L, Anion Gap 8, BUN 35 H, Creatinine 1.52 H, Estim Creat Clear Calc 27.24, Est GFR (MDRD) Af Amer 43 L, Est GFR (MDRD) Non-Af 36 L, BUN/Creatinine Ratio 23.0 H, Glucose 95, Calcium 8.7 06/26/19 05:16: Troponin I < 0.015 06/26/19 05:16: TSH 1.90 Current Medications Acetaminophen (Tylenol) 650 mg PO Q6H PRN PRN PRN Reason: Pain Score 1-10/Temp > 100.7 F Asp[facility] ([facility]) [facility] Last Admin: 06/26/19 09:42 Dose: 81 mg Documented by: Atorvastatin Calcium (Lipitor) 20 mg PO QHS [facility] Last Admin: 06/26/19 00:12 Dose: 20 mg Documented by: Bupropion HCl (Wellbutrin Sr (150mg Tablets)) 150 mg PO Q12 [facility] Last Admin: 06/26/19 09:42 Dose: 150 mg Documented by: Clopidogrel Bisulfate (Plavix) 75 mg PO DAILY [facility] Last Admin: 06/26/19 09:42 Dose: 75 mg Documented by: Enoxaparin Sodium (Lovenox) 30 mg SC DAILY [facility] Last Admin: 06/26/19 11:16 Dose: 30 mg Documented by: Escitalopram Oxalate (Lexapro) 10 mg PO DAILY [facility] Last Admin: 06/26/19 09:42 Dose: 10 mg Documented by: Glucagon () 1 mg IM .X1 PRN PRN Reason: Hypoglycemia Dextrose (Dextrose 10%-Water) 250 mls @ 999 mls/hr IV .Q16M PRN; Protocol PRN Reason: HYPOGLYCEMIA Sodium Chloride () 250 mls @ 15 mls/hr IV .[id number] PRN PRN Reason: Saline Flush Metoprolol Tartrate (Lopressor (Beta Chikis)) 12.5 mg PO BID [facility] Last Admin: 06/26/19 09:42 Dose: 12.5 mg Documented by: Ondansetron HCl (Zofran) 4 mg IV Q8H PRN PRN PRN Reason: NAUSEA/VOMITING Pantoprazole Sodium (Protonix) 20 mg PO DAILY [facility] Last Admin: 06/26/19 09:42 Dose: 20 mg Documented by: Sodium Chloride () 10 - 40 ml IV UD PRN PRN Reason: SALINE FLUSH Last Admin: 06/26/19 00:09 Dose: 10 ml Documented by: STROKE Vital Signs/Narrative: Vital Signs Temp Pulse Resp BP Pulse Ox 06/26/19 09:42 66 06/26/19 09:39 98.4 F 66 16 132/60 H 97 Medical Necessity - Tobacco Use Smoking Status: Never smoker Tobacco Use: Non-smoker Assessment/Plan All Active Problems (Last Reviewed 06/26/19 @ 01:50 by Barrie Andres MD) Orthostatic hypotension (Acute) Syncope (Acute) 1. Syncope - 2/2 orthostatic hypotension. Metoprolol continued. Aldactone and Ramipril held. TSH normal. Echo pending. No events on tele. Trop neg x 3. She is planning to have an outpatient stress test next week. -Echo EF 55%, normal LV size and function, St1 diastolic dysfunction, mild TVI, moderate L atrial enlargement. 2. LINDA on CKDIII - improved. nephrotoxins held. Continue IV fluids. 3. Depression/Anxiety - lexapro/wellbutrin 4. HLD - statin 5. Hx CAD and prior stents - aspirin, plavix, metoprolol, statin, bruce held. 6. COPD - no exacerbation 7. TATIANA 8. HTN - resting bp somewhat elevated. 9. Frequent UTIs - continue macrodentin 10. Hx compression fractures - likely has osteoporosis. Advised her to discuss medications and workup with PCP, for example bisphosphonates and dexa scan. DVT ppx: lovenox DC planning: fluids overnight. check orthos in AM. This patient was seen by Peter Adames PA-C under the supervision of Dr. Parekh. <Eladio Parekh E - Last Filed: 06/26/19 13:56> Vitals/I&O's: Vital Signs Temp Pulse Resp BP Pulse Ox 98.4 F 66 16 132/60 H 97 06/26/19 09:39 06/26/19 09:42 06/26/19 09:39 06/26/19 09:39 06/26/19 09:39 Oxygen Delivery Method Room Air Weight: 212 lb 4.882 oz Body Mass Index (BMI) 38.8 Orthostatic Vital Signs Start: 06/26/19 00:47 Freq: 0500 Status: Active Protocol: Activity Type Activity Date Activity User E-Sign Co-Sign Detail Recorded Client Recorded Date Recorded By Document 06/26/19 05:00 [facility] [id number] 06/26/19 05:33 [facility] 06/26/19 05:00 Orthostatic Vitals Standing -Blood Pressure (90/60-120/80) 84/50 L -Extremity Use Left Arm -Pulse Rate (60-100) 70 Sitting -Blood Pressure (90/60-120/80) 134/66 H -Extremity Use Left Arm -Pulse Rate (60-100) 64 Lying -Blood Pressure (90/60-120/80) 142/58 H -Extremity Use Left Arm -Pulse Rate (60-100) 59 L Intake and Output for Last 24 Hours 06/24/19 06/25/19 06/26/19 23:59 23:59 23:59 Intake Total 1000 / 1000 1805.0 / 1805.0 Output Total 300 / 300 Balance 1000 / 1000 1505.0 / 1505.0 Laboratory Results 06/25/19 19:40: WBC 11.1 H, RBC 3.67 L, Hgb 11.0 L, Hct 34.4 L, MCV 93.7, MCH 30.0, MCHC 32.0, RDW Std Deviation 58.4 H, RDW Coeff of Abelardo 17.0 H, Plt Count 259, MPV 9.7, Immature Gran % (Auto) 0.600, Neut % (Auto) 75.3 H, Lymph % (Auto) 16.1 L, Clare % (Auto) 7.3, Eos % (Auto) 0.5, Baso % (Auto) 0.2, Absolute Neuts (auto) 8.4 H, Absolute Lymphs (auto) 1.79, Nucleated RBC % 0 06/25/19 19:40: Sodium 137, Potassium 4.3, Chloride 111 H, Carbon Dioxide 17.0 L, Anion Gap 9, BUN 42 H, Creatinine 1.96 H, Estim Creat Clear Calc 21.12, Est GFR (MDRD) Af Amer 32 L, Est GFR (MDRD) Non-Af 27 L, BUN/Creatinine Ratio 21.4 H, Glucose 118 H, Calcium 9.4 06/25/19 22:57: Urine Color Yellow, Urine Clarity Clear, Urine pH 6.0, Ur Specific [place] 1.020, Urine Protein Negative, Urine Glucose (UA) Normal, Urine Ketones 5 H, Urine Occult Blood Negative, Urine Nitrite Negative, Urine Bilirubin Negative, Urine Urobilinogen Normal, Ur Leukocyte Esterase 100 H, Urine RBC 0 SEEN, Urine WBC 0-5 SEEN, Ur Squamous Epith Cells 0 SEEN, Urine Bacteria 0 SEEN, Urine Mucus 0 SEEN 06/25/19 23:20: Troponin I < 0.015 06/26/19 01:54: Troponin I < 0.015 06/26/19 05:16: WBC 9.5, RBC 3.21 L, Hgb 9.8 L, Hct 30.7 L, MCV 95.6, MCH 30.5, MCHC 31.9 L, RDW Std Deviation 59.3 H, RDW Coeff of Abelardo 16.8 H, Plt Count 215, MPV 9.9, Immature Gran % (Auto) 0.500, Neut % (Auto) 59.6, Lymph % (Auto) 30.7, Clare % (Auto) 8.1, Eos % (Auto) 0.8, Baso % (Auto) 0.3, Absolute Neuts (auto) 5.7, Absolute Lymphs (auto) 2.92, Nucleated RBC % 0 06/26/19 05:16: Sodium 141, Potassium 4.1, Chloride 116 H, Carbon Dioxide 17.0 L, Anion Gap 8, BUN 35 H, Creatinine 1.52 H, Estim Creat Clear Calc 27.24, Est GFR (MDRD) Af Amer 43 L, Est GFR (MDRD) Non-Af 36 L, BUN/Creatinine Ratio 23.0 H, Glucose 95, Calcium 8.7 06/26/19 05:16: Troponin I < 0.015 06/26/19 05:16: TSH 1.90 Current Medications Acetaminophen (Tylenol) 650 mg PO Q6H PRN PRN PRN Reason: Pain Score 1-10/Temp > 100.7 F Aspirin (Ecotrin) 81 mg PO DAILYCM [facility] Last Admin: 06/26/19 09:42 Dose: 81 mg Documented by: Atorvastatin Calcium (Lipitor) 20 mg PO QHS [facility] Last Admin: 06/26/19 00:12 Dose: 20 mg Documented by: Bupropion HCl (Wellbutrin Sr (150mg Tablets)) 150 mg PO Q12 [facility] Last Admin: 06/26/19 09:42 Dose: 150 mg Documented by: Clopidogrel Bisulfate (Plavix) 75 mg PO DAILY [facility] Last Admin: 06/26/19 09:42 Dose: 75 mg Documented by: Enoxaparin Sodium (Lovenox) 30 mg SC DAILY [facility] Last Admin: 06/26/19 11:16 Dose: 30 mg Documented by: Escitalopram Oxalate (Lexapro) 10 mg PO DAILY [facility] Last Admin: 06/26/19 09:42 Dose: 10 mg Documented by: Glucagon () 1 mg IM .X1 PRN PRN Reason: Hypoglycemia Dextrose (Dextrose 10%-Water) 250 mls @ 999 mls/hr IV .Q16M PRN; Protocol PRN Reason: HYPOGLYCEMIA Sodium Chloride () 250 mls @ 15 mls/hr IV .[id number] PRN PRN Reason: Saline Flush Metoprolol Tartrate (Lopressor (Beta Chikis)) 12.5 mg PO BID [facility] Last Admin: 06/26/19 09:42 Dose: 12.5 mg Documented by: Ondansetron HCl (Zofran) 4 mg IV Q8H PRN PRN PRN Reason: NAUSEA/VOMITING Pantoprazole Sodium (Protonix) 20 mg PO DAILY [facility] Last Admin: 06/26/19 09:42 Dose: 20 mg Documented by: Sodium Chloride () 10 - 40 ml IV UD PRN PRN Reason: SALINE FLUSH Last Admin: 06/26/19 00:09 Dose: 10 ml Documented by: Assessment/Plan Hospitalist note: I am seeing this patient in conjunction with Peter Adames. I independently seen and examined the patient. Progress note above, laboratory data and imaging studies reviewed and I concur with the above work-up and treatment plan. Today, patient denied any symptoms. She has been ambulating to the bathroom without symptoms. Denied dizziness or lightheadedness. Denied chest pain or shortness of breath. Her orthostatic vitals are still positive significantly. Blood pressure dropped down from 142 systolic down to 84. Other vital signs are stable. - Physical Exam General: Alert, Oriented x3, Cooperative, No apparent distress. HEENT: Atraumatic, PERRLA, EOMI. Neck: Supple, No JVD, Negative Carotid Bruits, Trachea Midline, Thyroid Normal. Lungs: Clear to auscultation, Normal air movement, No rhonchi, No wheeze, No rales. Cardiovascular: Regular rate, Regular Rhythm, Normal S1, Normal S2, PMI Normal. Abdomen: Bowel Sounds Present, Soft, Non Tender, Non-Distended, No Hepato-splenomegaly. Extremities: No clubbing, No cyanosis, No edema Skin: No rashes, No breakdown Neurological: Cranial nerves are intact, neuro grossly intact. Assessment and plan: #1 syncope: Secondary to orthostatic hypotension. She is on IV fluids. Aldactone and ramipril on hold. She is on metoprolol. EKG revealed no acute ischemic changes. Troponin was negative x3. 2D echocardiogram revealed ejection fraction of 55%, stage I diastolic dysfunction, no significant valvular disease. Plan to continue IV fluids, repeat orthostatic vitals tomorrow morning. Already, she is supposed to go for stress test as outpatient next week. #2 mild acute kidney injury on top of stage III chronic kidney disease: Attributed to diuretics and ramipril and both are on hold. Admission creatinine is 1.96, came down to 1.52 today. Plan to repeat BMP tomorrow morning. #3 other chronic medical problems: Stable, continue current medications as above. This note was generated with Medcurrentation software. It may contain incorrect words, spelling, and punctuation that were not noted in checking the note before signing. Code Visit OBSV E&M: 23252 Subsequent observation care L2
[2019-06-26] MEDS: 0.9% Normal Saline 1,000 ML 100 ML IV (14:36)
[2019-06-27] VITALS (7 sets, daily range): BP systolic 117–161; BP diastolic 58–81; PULSE 57–70; RESP 18–22; TEMP 36.6–36.8; O2SAT 94–98
[2019-06-27] MEDS: 0.9% Normal Saline 1,000 ML 100 ML IV ×2 (00:52→10:49)
[2019-06-27 06:45] LABS: Hematocrit 28.7 % (37-47); Hemoglobin 9.2 g/dL (12.0-15.0)
[2019-06-27 07:01] LABS: Anion Gap 7 (5-15); BUN 28 mg/dL (7-18); BUN/Creat Ratio 23.5 RATIO (10-20); Calcium,Total 8.7 mg/dL (8.5-10.1); Chloride 116 mmol/L (98-107); Creatinine, Serum 1.19 mg/dL (0.55-1.02); EST Glomerular Filtration Rate 48 mL/min (>60); Est Glom Filt Rate - Afr Amer 58 mL/min (>60); Estimated Creatinine Clearance 34.79 ml/min; Glucose 109 mg/dL (74-106); Potassium 3.9 mmol/L (3.5-5.1); Sodium Level 140 mmol/L (136-145)
--- NOTE | 2019-06-27 08:30 | NURSING ---
Assumed care of pt from Saji WILSON at this time.
[2019-06-27] MEDS: Enoxaparin 30 MG/0.3 ML Syringe SC (09:14)
[2019-06-27] MEDS: Aspirin E.C. 81 MG Tablet PO (09:14)
[2019-06-27] MEDS: buPROPion (SR) 150 MG Tablet.SA PO (09:15)
[2019-06-27] MEDS: Escitalopram Oxalate 10 MG Tablet PO (09:15)
[2019-06-27] MEDS: Metoprolol Tartrate 25 MG Tablet 12.5 MG PO (09:15)
[2019-06-27] MEDS: Pantoprazole Sodium 20 MG Tablet PO (09:15)
[2019-06-27] MEDS: Clopidogrel Bisulfate 75 MG Tablet PO (09:15)
--- NOTE | 2019-06-27 11:23 | DCINST_ITS ---
- Discharge Diagnoses Current Active Problems: Current Active and Chronic Problems (Last Updated 06/27/19 @ 10:16 by Eladio Parekh MD) Orthostatic hypotension (Acute) Syncope (Acute) You will use the following diet at home:: Cardiac Your food should be the consistency of: Regular Your liquids should be the consistency of: Regular/Thin Discharge Activity: Return to Normal Activity Additional Instructions: Take extra care transitioning from laying to sitting to standing positions. If you feel lightheaded or dizzy lay down and contact your doctor for additional instructions. Pursue outpatient physical therapy as previously directed. Talk to your family doctor about referral to a therapist regarding your anxiety. Talk to your family doctor about additional testing and medications regarding osteoporosis. Allergies/Adverse Reactions: Allergies promethazine HCl [From Phenergan] Allergy (Verified 06/25/19 18:20) Itching Medications to take at Discharge Aspirin E.C. [Ecotrin] 81 mg PO DAILY 08/02/13 Nitroglycerin (INPATIENT USE) [Nitrostat] 0.4 mg SUBLINGUAL Q5M PRN 08/02/13 clopidogrel 75 mg tablet 75 mg PO DAILY #90 tab 09/21/18 simvastatin 40 mg tablet 40 mg PO QHS #90 tab 09/21/18 acetaminophen 325 mg tablet 650 mg PO Q8H PRN tab 06/18/19 bupropion HCl 150 mg tablet,12 hr sustained-release 150 mg PO BID 06/18/19 metoprolol tartrate 25 mg tablet 12.5 mg PO BID tab 06/22/19 nitrofurantoin macrocrystal 100 mg capsule 100 mg PO DAILY cap 06/22/19 omeprazole 20 mg capsule,delayed release 20 mg PO QHS 06/22/19 Escitalopram Oxalate [Lexapro] 10 mg PO DAILY 06/25/19 Primary Care Physician: Evangelist Henriquez DO [Primary Care Provider] - Please follow up with your Primary Care Physician in: 1-2 weeks Test Results: Test results from this visit will be discussed in further detail at your follow- up appointment, if applicable. Please Follow Up With: Noel Huerta MD When: 2-4 weeks Proposed Discharge Date: 06/27/19
--- NOTE | 2019-06-27 13:30 | DS.PCM_ITS ---
<Peter Adames - Last Filed: 06/27/19 13:30> Discharge Date and Diagnosis Date of Admission: 06/25/19 Date of Discharge: 06/27/19 - Primary Discharge Diagnosis Active and Suspected Problems (Last Updated 06/27/19 @ 10:16 by Eladio Parekh MD) Syncope secondary to orthostatic hypotension secondary to dehydration and polypharmacy Acute kidney injury secondary to dehydration and polypharmacy Hypertension Anxiety disorder History of coronary artery disease with prior stent placement COPD with no exacerbation History obstructive sleep apnea History of compression fractures History of recurrent UTIs Obesity - Secondary Discharge Diagnosis Chronic Problems (Last Updated 06/27/19 @ 10:16 by Eladio Parekh MD) Essential hypertension (Chronic) 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 Hospital Course and Treatment Imaging Results: RAD/Chest PA and Lateral IMPRESSION: No change. No acute cardiopulmonary disease perceived. Echo: Interpretation Summary Normal LV size. Left ventricular systolic function is normal. The estimated ejection fraction is 55 %. Stage 1 diastolic dysfunction. The left atrium is moderately enlarged. Mild tricuspid valve insufficiency. Operations: None Procedures: 2-D Echocardiogram Summary of Care Provided: Hospital Course: The patient is a 69 year old F past medical history of CAD with prior stents, obstructive sleep apnea, obesity, anxiety, compression fractures, COPD, who presented to the emergency room with syncope. She went from sitting to standing became lightheaded and passed out. In the emergency room she appeared to have acute kidney injury, orthostatic hypotension. She was admitted to the PCU and placed on telemetry for syncope secondary to orthostatic hypotension. Her ISAMAR inhibitor and spironolactone were held. She was given IV fluids. By the following day she had no further lightheadedness or dizziness. She still remained somewhat orthostatic so she was given more IV fluids overnight. Her orthostatic hypotension resolved. She had no events on telemetry. She had an echocardiogram that was unremarkable. She was advised to continue metoprolol and to stay off of ISAMAR inhibitor and spironolactone for now. She was advised to caution changing positions. She ambulated with no LH or dizziness prior to DC. She was discharged home in stable condition. She will need to follow-up with her PCP in 1 to 2 weeks, and follow-up with her pharmacy operations coordinator in the next 2 to 4 weeks. She will continue outpatient physical therapy that she has previously been prescribed. This patient was seen by Peter Adames PA-C under the supervision of Doctor Iglesia. [] - Physical Exam Vitals/I&O's: Vital Signs Temp Pulse Resp BP Pulse Ox 97.8 F 70 18 161/73 H 94 06/27/19 09:10 06/27/19 09:15 06/27/19 09:10 06/27/19 09:15 06/27/19 09:10 Oxygen Delivery Method Room Air Weight: 212 lb 4.882 oz Body Mass Index (BMI) 38.8 Orthostatic Vital Signs Start: 06/26/19 00:47 Freq: 0500 Status: Active Protocol: Activity Type Activity Date Activity User E-Sign Co-Sign Detail Recorded Client Recorded Date Recorded By Document 06/27/19 06:38 EEA [id number] 06/27/19 06:52 EEA 06/27/19 06:38 Orthostatic Vitals Standing -Blood Pressure (90/60-120/80) 140/71 H -Extremity Use Left Arm Sitting -Blood Pressure (90/60-120/80) 117/81 H -Extremity Use Left Arm Lying -Blood Pressure (90/60-120/80) 150/58 H -Extremity Use Left Arm Intake and Output for Last 24 Hours 06/25/19 06/26/19 06/27/19 23:59 23:59 23:59 Intake Total 1000 / 1000 1925.0 / 1925.0 2190 / 2190 Output Total 700 / 700 Balance 1000 / 1000 1225.0 / 1225.0 219 / 2190 General: Alert, Oriented x3, Cooperative HEENT: Atraumatic, PERRLA, EOMI, Normocephalic Neck: Supple, No JVD, Negative Carotid Bruits Lungs: Clear to auscultation, Normal air movement Cardiovascular: Regular rate, No murmurs Abdomen: Bowel Sounds Present, Soft, Non Tender Extremities: No edema, Capillary Refill Less than 3 Seconds Skin: No rashes, No breakdown Musculoskeletal: No Tenderness to Palpation of Joints or Extremities Neurological: Cranial nerves II-XII grossly intact Psych/Mental Status: Normal Affect, Appropriate, Alert and oriented to time, place, person, mood and affect Laboratory Results 06/27/19 06:10: Sodium 140, Potassium 3.9, Chloride 116 H, Carbon Dioxide 17.0 L , Anion Gap 7, BUN 28 H, Creatinine 1.19 H, Estim Creat Clear Calc 34.79, Est GFR (MDRD) Af Amer 58 L, Est GFR (MDRD) Non-Af 48 L, BUN/Creatinine Ratio 23.5 H , Glucose 109 H, Calcium 8.7 06/27/19 06:10: Hgb 9.2 L, Hct 28.7 L Current Medications Acetaminophen (Tylenol) 650 mg PO Q6H PRN PRN PRN Reason: Pain Score 1-10/Temp > 100.7 F Aspirin (Ecotrin) 81 mg PO DAILYCM [facility] Last Admin: 06/27/19 09:14 Dose: 81 mg Documented by: Atorvastatin Calcium (Lipitor) 20 mg PO QHS [facility] Last Admin: 06/26/19 21:05 Dose: 20 mg Documented by: Bupropion HCl (Wellbutrin Sr (150mg Tablets)) 150 mg PO Q12 [facility] Last Admin: 06/27/19 09:15 Dose: 150 mg Documented by: Clopidogrel Bisulfate (Plavix) 75 mg PO DAILY [facility] Last Admin: 06/27/19 09:15 Dose: 75 mg Documented by: Enoxaparin Sodium (Lovenox) 30 mg SC DAILY [facility] Last Admin: 06/27/19 09:14 Dose: 30 mg Documented by: Escitalopram Oxalate (Lexapro) 10 mg PO DAILY [facility] Last Admin: 06/27/19 09:15 Dose: 10 mg Documented by: Glucagon () 1 mg IM .X1 PRN PRN Reason: Hypoglycemia Dextrose (Dextrose 10%-Water) 250 mls @ 999 mls/hr IV .Q16M PRN; Protocol PRN Reason: HYPOGLYCEMIA Sodium Chloride () 250 mls @ 15 mls/hr IV .[id number] PRN PRN Reason: Saline Flush Sodium Chloride () 1,000 mls @ 100 mls/hr IV .Q10H [facility] Last Infusion: 06/27/19 12:46 Dose: Infused Documented by: Metoprolol Tartrate (Lopressor (Beta Chikis)) 12.5 mg PO BID [facility] Last Admin: 06/27/19 09:15 Dose: 12.5 mg Documented by: Ondansetron HCl (Zofran) 4 mg IV Q8H PRN PRN PRN Reason: NAUSEA/VOMITING Pantoprazole Sodium (Protonix) 20 mg PO DAILY [facility] Last Admin: 06/27/19 09:15 Dose: 20 mg Documented by: Sodium Chloride () 10 - 40 ml IV UD PRN PRN Reason: SALINE FLUSH Last Admin: 06/26/19 14:37 Dose: 10 ml Documented by: Discharge Diet: Low fat/ Low Cholesterol, 2000 mg Sodium Diet Discharge Activity: Return to Normal Activity Home Medications: Medications to take at Discharge Aspirin E.C. [Ecotrin] 81 mg PO DAILY 08/02/13 Nitroglycerin (INPATIENT USE) [Nitrostat] 0.4 mg SUBLINGUAL Q5M PRN 08/02/13 clopidogrel 75 mg tablet 75 mg PO DAILY #90 tab 09/21/18 simvastatin 40 mg tablet 40 mg PO QHS #90 tab 09/21/18 acetaminophen 325 mg tablet 650 mg PO Q8H PRN tab 06/18/19 bupropion HCl 150 mg tablet,12 hr sustained-release 150 mg PO BID 06/18/19 metoprolol tartrate 25 mg tablet 12.5 mg PO BID tab 06/22/19 nitrofurantoin macrocrystal 100 mg capsule 100 mg PO DAILY cap 06/22/19 omeprazole 20 mg capsule,delayed release 20 mg PO QHS 06/22/19 Escitalopram Oxalate [Lexapro] 10 mg PO DAILY 06/25/19 Primary Care Physician: Evangelist Henriquez DO [Primary Care Provider] - Please follow up with your Primary Care Physician in: 1-2 weeks Please Follow Up With: Noel Huerta MD When: 2-4 weeks Please Follow Up With: Evangelist Henriquez DO When: 1-2 weeks Disposition: Home Minutes spent on discharge:: 35 Patient Condition:: Stable Medical Necessity - Tobacco Use Smoking Status: Never smoker Tobacco Use: Non-smoker Meaningful Use Info Meaningful Use Diagnoses (Choose all that apply): None applicable <Eladio Parekh E - Last Filed: 06/27/19 14:00> Discharge Date and Diagnosis - Secondary Discharge Diagnosis Chronic Problems (Last Updated 06/27/19 @ 10:16 by Eladio Parekh MD) Essential hypertension (Chronic) 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 Hospital Course and Treatment Summary of Care Provided: Hospitalist note: Discharge summary above reviewed and I concur with the above treatment and discharge plan. Patient was admitted for syncopal episode, found to have orthostatic hypotension and acute kidney injury top of stage III chronic kidney disease. This syncopal episode attributed to orthostatic hypotension which in turn due to dehydration and diuretics. Her EKG revealed no acute chronic changes. Troponin was negative. 2D echocardiogram revealed ejection fraction of 55%, stage I diastolic dysfunction and there was no significant valvular heart disease. Patient was treated with IV fluids and diuretics held while she is in the hospital. She was found to have creatinine of 1.96 on admission which is above her baseline. After IV fluids treatment, her creatinine came down to 1.19 upon discharge. Urinalysis showed no evidence of acute infection. Repeat orthostatic vitals improved and her blood pressure did not drop significantly as used to be upon admission. Patient symptoms improved, she has no more dizziness and she was ambulating without difficulties. Patient was discharged home in a stable condition, Aldactone and ramipril discontinued, continued on her previous other home medications without any changes, recommended follow-up with PCP in 1 to 2 weeks. - Physical Exam General: Alert, Oriented x3, Cooperative, No apparent distress. HEENT: Atraumatic, PERRLA, EOMI. Neck: Supple, No JVD, Negative Carotid Bruits, Trachea Midline, Thyroid Normal. Lungs: Clear to auscultation, Normal air movement, No rhonchi, No wheeze, No rales. Cardiovascular: Regular rate, Regular Rhythm, Normal S1, Normal S2, PMI Normal. Abdomen: Bowel Sounds Present, Soft, Non Tender, Non-Distended, No Hepato- splenomegaly. Extremities: No clubbing, No cyanosis, No edema Skin: No rashes, No breakdown Neurological: Cranial nerves are intact, neuro grossly intact. This note was generated with [employer] dictation software. It may contain incorrect words, spelling, and punctuation that were not noted in checking the note before signing. - Physical Exam Vitals/I&O's: Vital Signs Temp Pulse Resp BP Pulse Ox 97.8 F 70 18 161/73 H 94 06/27/19 09:10 06/27/19 09:15 06/27/19 09:10 06/27/19 09:15 06/27/19 09:10 Oxygen Delivery Method Room Air Weight: 212 lb 4.882 oz Body Mass Index (BMI) 38.8 Orthostatic Vital Signs Start: 06/26/19 00:47 Freq: 0500 Status: Active Protocol: Activity Type Activity Date Activity User E-Sign Co-Sign Detail Recorded Client Recorded Date Recorded By Document 06/27/19 06:38 EEA [id number] 06/27/19 06:52 EEA 06/27/19 06:38 Orthostatic Vitals Standing -Blood Pressure (90/60-120/80) 140/71 H -Extremity Use Left Arm Sitting -Blood Pressure (90/60-120/80) 117/81 H -Extremity Use Left Arm Lying -Blood Pressure (90/60-120/80) 150/58 H -Extremity Use Left Arm Intake and Output for Last 24 Hours 06/25/19 06/26/19 06/27/19 23:59 23:59 23:59 Intake Total 1000 / 1000 1925.0 / 1925.0 2190 / 2190 Output Total 700 / 700 Balance 1000 / 1000 1225.0 / 1225.0 2190 / 2190 Laboratory Results 06/27/19 06:10: Sodium 140, Potassium 3.9, Chloride 116 H, Carbon Dioxide 17.0 L , Anion Gap 7, BUN 28 H, Creatinine 1.19 H, Estim Creat Clear Calc 34.79, Est GFR (MDRD) Af Amer 58 L, Est GFR (MDRD) Non-Af 48 L, BUN/Creatinine Ratio 23.5 H , Glucose 109 H, Calcium 8.7 06/27/19 06:10: Hgb 9.2 L, Hct 28.7 L Disposition: Home Minutes spent on discharge:: 27 Patient Condition:: Stable Meaningful Use Info Meaningful Use Diagnoses (Choose all that apply): None applicable Code Visit Inpatient E&M: 20464 Disch Hosp
--- NOTE | 2019-06-28 14:40 | CASEMGMT ---
Case Management DC F/u Call: DC Date: 06/27/2019 DC Diagnosis: Syncope secondary to orthostatic hypotension secondary to dehydration and polypharmacy, Acute kidney injury secondary to dehydration and polypharmacy, Hypertension, Anxiety disorder. History of coronary artery disease with prior stent placement, COPD with no exacerbation, History obstructive sleep apnea, History of compression fractures, History of recurrent UTIs, Obesity DC Disposition: Home Lace/Strata: 02/02 Called patients cell phone listed on demographics, patient answered, this ad writer introduced self and role. Patient states that she feels anxious as she has a stress test scheduled tomorrow but otherwise feels okay. Denies any questions, concerns, or issues with [facility], medications or f/u appointments. Thanked patient for choosing care at [facility] and ended conversation. Aishwarya Dailey RNCM
== END 2019-06-27 13:33 | disposition home or self-care (01) | DRG 683 ==
LOC: ED 22:17 → PCU 23:05
PROVIDERS: Physician Assistant; Admitting Provider Hospitalist; Emergency Provider Emergency Medicine; PCP Student in an Organized Health Care Education/Training Program; Visit Provider Hospitalist
DX: N17.9 Acute kidney failure, unspecified (principal); I50.32 Chronic diastolic (congestive) heart failure; I13.0 Hypertensive heart and chronic kidney disease with heart failure and stage 1 through stage 4 chronic kidney disease, or unspecified chronic kidney disease; I95.1 Orthostatic hypotension; E86.0 Dehydration; N18.3 Chronic kidney disease, stage 3 (moderate); I25.10 Atherosclerotic heart disease of native coronary artery without angina pectoris; E78.5 Hyperlipidemia, unspecified; G47.33 Obstructive sleep apnea (adult) (pediatric); J44.9 Chronic obstructive pulmonary disease, unspecified; F32.9 Major depressive disorder, single episode, unspecified; E66.9 Obesity, unspecified; Z68.39 Body mass index [BMI] 39.0-39.9, adult; Z71.3 Dietary counseling and surveillance; Z87.440 Personal history of urinary (tract) infections; F41.9 Anxiety disorder, unspecified
CPT/HCPCS: 36415; 71046; 80048; 81001; 84443; 84484; 85014; 85018; 85025; 93005; 93306; 97162; 97165; 97535; 99285; J7030; A4216

== ENCOUNTER → 2019-06-29 06:38 | Outpatient (CLI) | payer MEDICARE, OTHER, SELFPAY ==
[2019-06-22 15:00] VITALS: BMI 38.2
[2019-06-25 23:06] VITALS: BMI 38.8
--- NOTE | 2019-06-29 12:02 | STRESSREP_ITS ---
Stress Test Report Date: 06-29-2019 Procedure: Pharmacologic stress nuclear imaging study Indications: CAD; PCI; near syncope/syncope Consent: Per the patient Procedure: The patient underwent pharmacologic (Regadenoson) evaluation with a peak heart rate of 87 beats per minute (58 %predicted maximal heart rate) and a peak blood pressure of 140/74 mmHg. The baseline ECG demonstrated sinus rhythm; nonspecific IVCD. The peak pharmacologic ECG demonstrated continued nonspecific IVCD. There was an occasional PAC pretest. There was no complaint of chest discomfort during pharmacologic infusion or recovery. The examination was discontinued secondary to completion of protocol. Impression: 1. Pharmacologic (Regadenoson) evaluation 2. Peak pharmacologic ECG with continued nonspecific IVCD. 3. There was an occasional PACs pretest. 4. Nuclear images pending Myocardial perfusion imaging study: Technique: The patient was injected with 14.5 millicuries of technetium 99m Cardiolite and subsequently rest SPECT Cardiolite nuclear imaging was obtained in the horizontal long, vertical long, and short axis views. The patient underwent pharmacologic (Regadenoson) evaluation with a peak heart rate of 87 beats per minute (58 % percent predicted maximal heart rate) and a peak blood pressure of 140/74 mmHg. The patient was injected with 44.4 millicuries of technetium 99m Cardiolite and subsequently stress SPECT Cardiolite nuclear imaging was obtained in the horizontal long, vertical long, and short axis views. A gated Cardiolite study at peak stress was obtained. Interpretation: Rest and stress SPECT Cardiolite nuclear imaging status post realignment, normalization, and attenuation correction demonstrate relative uniform tracer uptake and myocardial perfusion appearing within normal limits. There is end systolic thickening and brightening. The gated Cardiolite study demonstrates myocardial thickening and inward wall motion. The reported LVEF is 72 %. Impression: 1. Rest and stress SPECT Cardiolite nuclear imaging demonstrate relative uniform tracer uptake and myocardial perfusion appearing within normal limits. 2. The gated Cardiolite study reports an LVEF of 72 %. This note was generated with [employer] software. It may contain incorrect words, spelling, and punctuation that were not noted in checking the note before signing.
== END ==
LOC: CVS 06:39
PROVIDERS: PCP Student in an Organized Health Care Education/Training Program; Referring Provider Internal Medicine Cardiovascular Disease; Visit Provider Internal Medicine Cardiovascular Disease
DX: I10 Essential (primary) hypertension (principal); I25.10 Atherosclerotic heart disease of native coronary artery without angina pectoris; E78.5 Hyperlipidemia, unspecified; R00.2 Palpitations; R06.02 Shortness of breath; Z95.5 Presence of coronary angioplasty implant and graft
CPT/HCPCS: 78452; 93017; 93225; 93226; A9500; A4216; J2785

== ENCOUNTER 2019-07-10 14:17 | Emergency (ER) | payer MEDICARE, OTHER, SELFPAY ==
[2019-06-25 23:06] VITALS: BMI 38.8
[2019-07-10 14:18] VITALS: BP 132/85; PULSE 71; RESP 16; TEMP 36.4; O2SAT 96; BMI 39.6
--- NOTE | 2019-07-10 16:09 | ED.VIS.GEN ---
History of Present Illness Chief Complaint: Edema Informant: Patient Onset: Weeks Context: Gradual Onset Timing: Continuous Narrative: Patient is a 69-year-old female with history of hypertension and recent hospitalization for syncope presenting with left lower extremity swelling. She states she is had swelling in her left lower leg since the day after she was discharged in the hospital. She notes she has significantly increased her water intake because of the dehydration she was having. She saw Dr. Albrecht yesterday who ordered a d-dimer and put her on a 5-day course of water pill. Her d-dimer came back today elevated at 6390. Patient denies any history of blood clots. She denies any shortness of breath, chest pain or other symptoms. She denies any other complaints at this time. Past Medical History - Allergies and Home Meds Allergies/Adverse Reactions: Allergies promethazine HCl [From Phenergan] Allergy (Verified 06/25/19 18:20) Itching Primary Care Physician: Evangelist Henriquez DO [Primary Care Provider] - Past Medical History: - - Hypertension, coronary artery disease, TATIANA, COPD, hyperlipidemia Surgical History: adenoidectomy, cholecystectomy, herniorrhaphy, - - Cardiac stent Smoking Status: Never smoker - Family History Maternal Family History: Family History (Last Reviewed 06/26/19 @ 01:47 by Barrie Andres MD) Father Colon cancer Mother Cancer Family History: Reports: Cancer - lung, Heart Disease Paternal Family History: Family History (Last Reviewed 06/26/19 @ 01:47 by Barrie Andres MD) Father Colon cancer Mother Cancer Family History: Reports: Cancer - liver Review of Systems General: Denies: Chills, Fever, Sweats Eyes: Denies: Visual changes - bilaterally, Diplopia ENT: Denies: Rhinorrhea, Sore throat Cardiovascular: Denies: Chest pain, Palpitations Respiratory: Denies: Dyspnea, Cough, Dyspnea on exertion Gastrointestinal: Denies: Abdominal pain, Nausea, Vomiting, Diarrhea, Melena, Hematochezia Genitourinary: Denies: Dysuria, Hematuria, Frequency Musculoskeletal: Reports: Swelling - Left lower leg. Denies: Back pain, Extremity Pain Skin: Denies: Rash, Wounds Neurological: Denies: Headache, Weakness, Numbness Physical Exam Vital Signs/Narrative: Vital Signs Temp Pulse Resp BP Pulse Ox 07/10/19 14:18 97.5 F L 71 16 132/85 H 96 Inital Vital Signs reviewed: Yes General: Well nourished, Well developed, No Acute Distress Head: Normocephalic, Atraumatic Eyes: Perrl, EOMI ENT: Moist mucous membranes, No rhinorrhea Neck: Supple, Nontender Cardiovascular: Regular rate, Regular rhythm, No murmurs Respiratory: No distress, CTA bilaterally, Chest nontender Abdomen: Soft, Nontender, Nondistended, Normal bowel sounds Back: Nontender, Normal Inspection Extremities: Nontender, Edema - Left lower extremity up to knee, nonpitting edema. Negative for: Calf Tenderness Skin: Normal color, No rash Neurological: Alert, Oriented x3, Cranial nerves II-XII grossly intact, Normal Strength, Normal Sensation Psychological: Normal affect, Normal Mood Diagnostic/Tx/Re-eval - Medical Decision Making Patient is evaluated for atraumatic swelling of her left lower leg. She does have a history of swelling in this leg but not as bad. She had elevated d-dimer outpatient. I was able to review the d-dimer which was significantly elevated at 6000. Patient does have a risk factor she was recently admitted to the hospital. Patient be empirically treated with a dose of Lovenox and scheduled for an outpatient DVT ultrasound tomorrow. She is counseled on signs symptoms require return the emergency room. She is not currently have any signs or symptoms consistent with a PE. She is counseled on signs or symptoms of bleeding from anticoagulation. Patient is counseled on signs and symptoms requiring return to the emergency room. Patient verbalizes agreement and understand this plan. Patient discharged home in stable and improved condition. ED Disposition - Plan for ED Patient: Disposition: Home or Assisted Living Diagnosis: Swelling of left lower extremity Instructions: ED Peripheral Edema, Unilateral Referrals: Evangelist Henriquez DO [Primary Care Provider] - Additional Instructions: You possibly have a DVT of your left lower leg. I cannot rule it out today. Please get the ultrasound tomorrow. You have been given a sheet with information of this. You been given a dose of a blood thinner today in case you do have a blood clot. Return emergency room if you develop any chest pain, shortness of breath or signs of bleeding.
[2019-07-10 16:33] VITALS: BP 137/68; PULSE 71; RESP 15; O2SAT 98
[2019-07-10] MEDS: Enoxaparin 100 MG/ML Syringe SC (16:35)
== END 2019-07-10 16:35 | disposition home or self-care (01) ==
PROVIDERS: Emergency Provider Emergency Medicine; PCP Student in an Organized Health Care Education/Training Program
DX: M79.89 Other specified soft tissue disorders (principal); I25.10 Atherosclerotic heart disease of native coronary artery without angina pectoris; I10 Essential (primary) hypertension; E78.5 Hyperlipidemia, unspecified; J44.9 Chronic obstructive pulmonary disease, unspecified; Z95.5 Presence of coronary angioplasty implant and graft; Z79.82 Long term (current) use of aspirin; Z79.01 Long term (current) use of anticoagulants
CPT/HCPCS: 96372; 99282

== ENCOUNTER → 2019-07-11 11:24 | Outpatient (CLI) | payer MEDICARE, OTHER, SELFPAY ==
[2019-07-10 14:18] VITALS: BMI 39.6
--- NOTE | 2019-07-11 11:39 | VDLE_ITS ---
Reason For Study: Edema RIGHT LEFT CFV is compressible, spontaneous, phasic, GSV is normal. competent and demonstrates normal CFV is compressible, spontaneous, phasic, augmentation. competent, and demonstrates normal Procedure augmentation. Exam performed in department. FV is compressible, spontaneous, phasic, A preliminary report was called and/or faxed competent and demonstrates normal to ED. augmentation. POP V is compressible, spontaneous, phasic, competent and demonstrates normal augmentation. T/P Trunk is compressible. LT PerV is compressible. Lt GastrocV and Lt PTV are dilated and non compressible consistent with acute DVT Lt SSV is dilated and non compresisble consistent with acute SVT Difficult to visualize Lt PeroV. Interpretation Summary Acute deep vein thrombosis is noted in the left posterior tibial vein. Acute deep vein thrombosis is noted in the left gastrocnemius vein. The remainder of the left lower extremity deep venous system is patent and compressible. Valvular competence appears intact within the proximal deep venous system on the left . The left great saphenous vein appears patent and compressible segmentally. Acute superficial thrombophlebitis is noted in the left small saphenous vein. The left peroneal vein was not well visualized. Ordering Physician: Tita Almanza Referring Physician: Evangelist Castro Performed By: Wilma Gustafson, FIDEL, RVT
== END ==
PROVIDERS: PCP Student in an Organized Health Care Education/Training Program; Visit Provider Emergency Medicine
DX: R22.42 Localized swelling, mass and lump, left lower limb (principal)
CPT/HCPCS: 93971

== ENCOUNTER 2019-07-11 12:15 | Emergency (ER) | payer MEDICARE, OTHER, SELFPAY ==
[2019-07-10 14:18] VITALS: BMI 39.6
[2019-07-11 12:16] VITALS: BP 166/73; PULSE 56; RESP 18; TEMP 36.4; O2SAT 100; BMI 39.6
--- NOTE | 2019-07-11 13:19 | ED.VIS.GEN ---
History of Present Illness Chief Complaint: Lower Extremity Injury Informant: Patient, Family Onset: Days Context: Sudden Onset Timing: Continuous Quality: Pain in left lower extremity with swelling Location: Lower extremity Current Severity: Mild Maximum Severity: Mild Worsened by: Nothing Relieved by: Nothing Associated Symptoms: No cardiorespiratory symptoms Narrative: Patient is a 6-year-old woman who was recently hospitalized for several days. She had an outpatient venous duplex study which reveals a clot in the left superficial saphenous vein and there is a clot in the left gastroc vein and left posterior tibial vein. These are all acute. Patient denies chest pain of any type. Patient denies dyspnea or dyspnea exertion. She has no prior history of VTE. Prior similar symptoms: No Recent Illness/Hospitalization: Yes - Past Medical History (1) Orthostatic hypotension Status: Acute (2) Syncope Status: Acute (3) Atherosclerotic heart disease of [place] coronary artery without angina pectoris Status: Chronic (4) COPD (chronic obstructive pulmonary disease) Status: Chronic (5) Essential hypertension Status: Chronic (6) Hyperlipidemia Status: Chronic (7) TATIANA (obstructive sleep apnea) Status: Chronic (8) S/P coronary artery stent placement Status: Chronic Comment: S/P balloon angioplasty and drug-eluting stent placement to proximal LCx in 05/28/2016. Past Medical History - Allergies and Home Meds Allergies/Adverse Reactions: Allergies promethazine HCl [From Phenergan] Allergy (Verified 07/11/19 12:18) Itching Primary Care Physician: Evangelist Henriquez DO [Primary Care Provider] - Prior records reviewed: Yes Surgical History: adenoidectomy, cholecystectomy, herniorrhaphy, - - Cardiac stent Lives: Alone Smoking Status: Never smoker - Family History Maternal Family History: Family History (Last Reviewed 06/26/19 @ 01:47 by Barrie Andres MD) Father Colon cancer Mother Cancer Family History: Reports: Cancer - lung, Heart Disease Paternal Family History: Family History (Last Reviewed 06/26/19 @ 01:47 by Barrie Andres MD) Father Colon cancer Mother Cancer Family History: Reports: Cancer - liver Review of Systems General: Denies: Chills, Fever Cardiovascular: Denies: Chest pain, Palpitations Respiratory: Denies: Dyspnea, Cough, Sputum, Dyspnea on exertion Gastrointestinal: Denies: Nausea, Vomiting Musculoskeletal: Reports: Swelling, Extremity Pain. Denies: Myalgias, Arthralgias, Neck pain, Back pain, -, - Neurological: Denies: Weakness, Parasthesia, Numbness Hematologic: Denies: Easy bruising, Easy bleeding Physical Exam Vital Signs/Narrative: Vital Signs Temp Pulse Resp BP Pulse Ox 07/11/19 12:16 97.5 F L 56 L 18 166/73 H 100 Inital Vital Signs reviewed: Yes General: Well nourished, Well developed, No Acute Distress Head: Normocephalic, Atraumatic Eyes: Perrl, EOMI. Negative for: Pale conjunctiva, Scleral icterus ENT: Moist mucous membranes, No rhinorrhea, TM's clear Neck: Supple, Nontender, No lymphadenopathy, No JVD Cardiovascular: Regular rate, Regular rhythm, No murmurs, Normal S1, Normal S2 Respiratory: No distress, CTA bilaterally, Chest nontender Extremities: No edema, Tenderness. Negative for: Nontender Skin: Normal color, No rash Neurological: Alert, Oriented x3, Cranial nerves II-XII grossly intact, Normal Strength, Normal Sensation Psychological: Normal affect Diagnostic/Tx/Re-eval - Medical Decision Making Outpatient ultrasound which reveals clot below the trifurcation as well as a clot in the superficial saphenous vein. Patient will require either repeat outpatient ultrasounds based on the clots in the gastroc vein and posterior tibial vein versus anticoagulation therapy. Since this is provoked would recommend repeat study. The location of the superficial saphenous vein clot is unknown. This is important since if it is within 10 cm of the deep venous system recommendation is anticoagulation. Spoke with mechanical test technician who performed the venous duplex plaque study. The left superficial saphenous vein clot is distal. Therefore anticoagulation is not mandatory. Patient was informed of risk benefits of serial ultrasounds versus anticoagulation therapy. She was explained was benefits of the different anticoagulants and method of administration, affect on diet and potential interactions with medication. After explaining risk benefits of serial ultrasound/venous duplex studies versus anticoagulation therapy patient chose serial ultrasounds. Outpatient order was completed by me for ultrasound to be repeated on July 14, July 18 and August 01. Patient was informed if there is propagation of this clot anticoagulation is needed. ED Disposition - Plan for ED Patient: Disposition: Home or Assisted Living Diagnosis: Deep vein thrombosis (DVT) of left lower extremity, Saphenous vein clot Instructions: Dvt Referrals: Henriquez,Evangelist, DO [Primary Care Provider] - Additional Instructions: You need to have repeat venous duplex study on July 14, July 18 and August 01. Recommend taking an aspirin a day. If you were to develop chest pain or shortness of breath return to the emergency department. The likelihood of this occurring is extremely low but not 0.
== END 2019-07-11 14:00 | disposition home or self-care (01) ==
PROVIDERS: Emergency Provider Emergency Medicine; PCP Student in an Organized Health Care Education/Training Program
DX: I82.492 Acute embolism and thrombosis of other specified deep vein of left lower extremity (principal); I25.10 Atherosclerotic heart disease of native coronary artery without angina pectoris; J44.9 Chronic obstructive pulmonary disease, unspecified; I10 Essential (primary) hypertension; E78.5 Hyperlipidemia, unspecified; R22.42 Localized swelling, mass and lump, left lower limb; G47.33 Obstructive sleep apnea (adult) (pediatric); Z95.5 Presence of coronary angioplasty implant and graft; Z79.82 Long term (current) use of aspirin; Z79.899 Other long term (current) drug therapy
CPT/HCPCS: 93971; 99282; A4216

== ENCOUNTER → 2019-07-14 07:32 | Outpatient (CLI) | payer MEDICARE, OTHER, SELFPAY ==
[2019-07-11 12:16] VITALS: BMI 39.6
--- NOTE | 2019-07-14 07:34 | VDLE_ITS ---
Reason For Study: F/U DVT RIGHT LEFT CFV is compressible, spontaneous, phasic, GSV is normal. competent and demonstrates normal CFV is compressible, spontaneous, phasic, augmentation. competent, and demonstrates normal Procedure augmentation. Exam performed in department. FV is compressible, spontaneous, phasic, Patient sent to Dr. Cole office. competent and demonstrates normal A preliminary report was called and/or faxed augmentation. to Dr. Castro. POP V is compressible, spontaneous, phasic, competent and demonstrates normal augmentation. T/P Trunk is compressible. LT PerV is compressible. Lt GastrocV, Lt PTV, and Lt SoleusV are dilated and non compressible consistent with acute DVT Lt SSV is dilated and non compressible consistent with acute SVT Difficult to visualize Lt PeroV. Interpretation Summary Acute deep vein thrombosis is noted in the left posterior tibial vein. Acute deep vein thrombosis is noted in the left gastrocnemius vein. Acute deep vein thrombosis is noted in the left soleus vein. The remainder of the left lower extremity deep venous system is patent and compressible. Valvular competence appears intact within the proximal deep venous system on the left . The left great saphenous vein appears patent and compressible segmentally. Acute superficial thrombophlebitis is noted in the left small saphenous vein. The left peroneal vein was not well visualized. There has been no significant change since a prior study on 07/11/2019. Ordering Physician: Brandyn Berg Referring Physician: Evangelist Castro Performed By: Wilma Gustafson, FIDEL, RVT
== END ==
PROVIDERS: PCP Student in an Organized Health Care Education/Training Program; Referring Provider Emergency Medicine; Visit Provider Emergency Medicine
DX: I82.462 Acute embolism and thrombosis of left calf muscular vein (principal); I82.442 Acute embolism and thrombosis of left tibial vein; I82.812 Embolism and thrombosis of superficial veins of left lower extremity
CPT/HCPCS: 93971

== ENCOUNTER → 2019-07-19 07:37 | Outpatient (CLI) | payer MEDICARE, OTHER, SELFPAY ==
[2019-07-11 12:16] VITALS: BMI 39.6
--- NOTE | 2019-07-19 07:40 | VDLE_ITS ---
Reason For Study: F/U DVT RIGHT LEFT CFV is compressible, spontaneous, phasic, GSV is normal. competent and demonstrates normal CFV is compressible, spontaneous, phasic, augmentation. competent, and demonstrates normal Procedure augmentation. Exam performed in department. FV is compressible, spontaneous, phasic, The study was technically difficult. competent and demonstrates normal The exam was diagnostic. augmentation. A preliminary report was called and/or faxed POP V is compressible, spontaneous, phasic, to DR. Castro @ [phone]. competent and demonstrates normal augmentation. T/P Trunk is compressible. LT PerV is compressible. PTV, Gastrocnemius V, Soleus V are NONCOMPRESSIBLE. SSV is NONCOMPRESSIBLE. Interpretation Summary Acute deep vein thrombosis is noted in the left posterior tibial vein. Acute deep vein thrombosis is noted in the left gastrocnemius vein. Acute deep vein thrombosis is noted in the left soleus vein. The remainder of the left lower extremity deep venous system is patent and compressible. Valvular competence appears intact within the proximal deep venous system on the left . The left great saphenous vein appears patent and compressible segmentally. Acute superficial thrombophlebitis is noted in the left small saphenous vein. There has been no significant change since a prior study on 07/14/2019. Ordering Physician: Brandyn Berg Referring Physician: Evangelist Castro Performed By: Shanad Gomez, RDCS, RVT
== END ==
PROVIDERS: PCP Student in an Organized Health Care Education/Training Program; Referring Provider Emergency Medicine; Visit Provider Emergency Medicine
DX: I82.462 Acute embolism and thrombosis of left calf muscular vein (principal); I82.442 Acute embolism and thrombosis of left tibial vein; I82.812 Embolism and thrombosis of superficial veins of left lower extremity
CPT/HCPCS: 93971

== ENCOUNTER → 2019-10-27 10:18 | Outpatient (CLI) | payer MEDICARE, OTHER, SELFPAY ==
[2019-09-27 09:34] VITALS: BMI 39.6
--- NOTE | 2019-10-27 10:20 | RAD_ITS ---
STUDY: X-RAY - ABDOMEN/PELVIS REASON FOR EXAM: Female, 69 years old. UTI. Urgency. TECHNIQUE: Two AP supine views of the abdomen and pelvis. COMPARISON: Abdomen, October 18, 2017. FINDINGS: Normal visualized lung bases. There is an unremarkable bowel gas pattern. Again seen is evidence of sigmoid diverticulosis. There is no demonstrated free abdominal air. The visualized liver, spleen and kidneys are grossly normal in size and morphology. There are calcifications within the splenic artery and SMA and abdominal aorta. There are calcifications overlying the lower pole left kidney. There is a small calcification overlying the lower pole of the right kidney. Phleboliths are seen in the pelvis. There are diffuse degenerative changes of the visualized lumbar spine. RAD/Abdomen Single View IMPRESSION: 1. Probable bilateral renal calculi. 2. No evidence of acute obstruction. 3. Vascular calcifications. Electronically Signed: Orville Greenfield DO at 21:18 EDT Tel [phone], Service support ,
== END ==
PROVIDERS: PCP Student in an Organized Health Care Education/Training Program; Referring Provider Urology; Visit Provider Urology
DX: N39.0 Urinary tract infection, site not specified (principal); R39.15 Urgency of urination; N20.0 Calculus of kidney
CPT/HCPCS: 74018

== ENCOUNTER 2019-11-02 05:38 | Day surgery (SDC) | payer MEDICARE, OTHER, SELFPAY ==
[2019-09-27 09:34] VITALS: BMI 39.6
--- NOTE | 2019-11-02 | BLA_PTH ---
PATIENT: RUBEN COSTELLO [place] [facility] [id number] AGE/SX: 69/F ROOM: RE11/02/[address]: Dr. Yulissa Rendon MD : 1950 BED: DIS: 11/02/2019 SPEC #: [id number] RECD: 11/02/19 12:06 STATUS: CECY GHADA #: [id number] AURELIA: 11/02/19 00:[address]: Yulissa Rendon DEPT: SURGICAL PATHOLOGY RECD BY: Christo Harding ENTERED: 11/02/19 12:06 SP TYPE: BLADDER BX OTHR DR: Dr. Evangelist Henriquez DO Tissues: A - Urinary bladder, NOS B - CALCULI Procedures: Surgery Specimen Level I Surgery Specimen Level IV HEADER OPERATION: Cysto, bladder tumor biopsy with fulguration PRE-OP DIAGNOSIS: Left renal calculus, bladder erythema, recurrent UTI TISSUE SUBMITTED: A - Bladder biopsy, B - Left kidney stones MICROSCOPIC DIAGNOSIS A. 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 See comment. B. Left kidney stones, removal: Unremarkable calculi (gross diagnosis only). AM:gray 11/03/19 COMMENT A. There is minimal focal acute inflammation also present. Clinical correlation is suggested. B. The calculus is submitted in its entirety for chemical stone analysis. The results from this study will be reported separately. MICROSCOPIC DESCRIPTION Slides are reviewed. GROSS DESCRIPTION A - Received in fixative is one container labeled with the patient's name and designated bladder biopsy. The specimen consists of two irregular fragments of light hopkins soft tissue that in aggregate measure 0.4 x 0.2 x 0.1 cm. The specimen is totally submitted in one cassette. B - Received in fixative is one container labeled with the patient's name and designated left kidney stones. The specimen consists of multiple fragments of brownish-black stone that in aggregate measure 1.5 x 0.5 x 0.1 cm. The calculus is submitted in its entirety for chemical stone analysis. / SJ:gray 11/02/19 TC:3 CPT: 07251, 41485
[2019-11-02 06:06] VITALS: BP 130/63; PULSE 53; RESP 15; TEMP 36.1; O2SAT 100; BMI 44.0
[2019-11-02] MEDS: Lactated Ringers 1,000 ML 100 ML IV (06:23)
--- NOTE | 2019-11-02 07:21 | PCM.HP.STD ---
Problem List (1) Left renal stone Status: Acute (2) Erythematous bladder mucosa Status: Acute (3) Urinary tract infection Status: Acute History of Present Illness Date of Admission: 11/02/19 Chief Complaint: recurrent urinary tract infections, left kidney stones, bladder erythema The patient is a 69 year old F who struggling with recurrent urinary tract infections. She was identified as having multiple left renal calculi. She is currently undergone an extracorporal shockwave lithotripsy in addition to a laser lithotripsy and still has multiple stones remaining in the left lower pole. She had a cystoscopy in the office revealing an ulceration of the dome of the bladder. She now presents for biopsy and repeat laser lithotripsy. Risks benefits and alternatives were discussed including that of COVID-19. She understands and desires to proceed. Past Medical History Past Medical History (Chronic Problems): Chronic Problems (Last Reviewed 09/27/19 @ 09:00 by Andrew Gustafson, [employer] REPA[employer]ER-C) Essential hypertension (Chronic) Atherosclerotic heart disease of [place] coronary artery without angina pectoris (Chronic) TATIANA (obstructive sleep apnea) (Chronic) COPD (chronic obstructive pulmonary disease) (Chronic) Hyperlipidemia (Chronic) S/P coronary artery stent placement (Chronic ~05/28/16) S/P balloon angioplasty and drug-eluting stent placement to proximal LCx in 05/28/2016. Medical History: Medical History (Last Reviewed 11/02/19 @ 07:[address] Yulissa Rendon MD) Essential hypertension (Chronic) I10 Atherosclerotic heart disease of [place] coronary artery without angina pectoris (Chronic) I25.10 TATIANA (obstructive sleep apnea) (Chronic) G47.33 COPD (chronic obstructive pulmonary disease) (Chronic) J44.9 Hyperlipidemia (Chronic) E78.5 Kidney stone N20.0 Abnormal pulmonary function test R94.2 Atherosclerosis of coronary 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 I25.810 Chronic diastolic (congestive) heart failure I50.32 Depression F32.9 Hemorrhoids K64.9 Nonspecific abnormal unspecified cardiovascular function study R94.30 TATIANA (obstructive sleep apnea) G47.33 Obesity E66.9 Allergies promethazine HCl [From Phenergan] Allergy (Verified 11/02/19 06:04) Itching Home Medications: Ambulatory Orders Medication Instructions Recorded Aspirin E.C. [Ecotrin] 81 mg PO DAILY 08/02/13 Nitroglycerin (INPATIENT USE) 0.4 mg SUBLINGUAL Q5M PRN 08/02/13 [Nitrostat] simvastatin 40 mg tablet 40 mg PO QHS #90 tab 09/21/18 acetaminophen 325 mg tablet 650 mg PO Q8H PRN tab 06/18/19 omeprazole 20 mg capsule,delayed 20 mg PO QHS 06/22/19 release Cholecalciferol (Vitamin D3) 1 cap PO QWEEK 07/10/19 [D3-50] Lorazepam 0.5 mg TID PRN PRN 07/10/19 hydrochlorothiazide 25 mg tablet 25 mg PO DAILY 08/09/19 escitalopram oxalate 10 mg tablet 20 mg PO DAILY tab 09/27/19 metoprolol tartrate 25 mg tablet 12.5 mg PO BID tab 09/27/19 potassium chloride 10 mEq 20 meq PO DAILY tab 09/27/19 tablet,extended release ramipril 2.5 mg capsule 2.5 mg PO DAILY #30 cap 09/27/19 Clopidogrel Bisulfate [Plavix] 75 mg PO DAILY 10/27/19 Surgical History: Surgical History (Last Reviewed 09/27/19 @ 09:00 by TREVOR Machado) S/P coronary artery stent placement (Chronic) Onset Date: ~05/28/16 Z95.5 S/P balloon angioplasty and drug-eluting stent placement to proximal LCx in 05/28/2016. 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 Smoking Status: Never smoker Tobacco Use: Non-smoker - *Family History Maternal Family History: Family History (Last Reviewed 09/27/19 @ 09:00 by TREVOR Machado) Father Colon cancer Mother Cancer History Items: Cancer, Heart Disease Paternal Family History: Family History (Last Reviewed 09/27/19 @ 09:00 by TREVOR Machado) Father Colon cancer Mother Cancer History Items: Cancer Review of Systems Constitutional: Denies: Chills, Fever Eyes: Denies: Vision Change HEENT: Denies: Difficulty Swallowing Cardiovascular: Denies: Chest Pain, Chest Pressure Respiratory: Denies: Cough, Shortness of Breath Gastrointestinal: Denies: Abdominal Pain, Nausea, Vomiting Genitourinary: Reports: Frequency, Incontinence, Urgency. Denies: Dysuria Gynecological: Denies: Breast symptoms, Vaginal discharge Musculoskeletal: Denies: Muscle pain Skin: Denies: Wounds Neurological: Denies: Difficulty swallowing Endocrine: Denies: Change in Body Habitus VTE Information - Inpt Only VTE Present on Admission: Yes VTE Mechan Device Prophylaxis: SCD's VTE Pharm Prophylaxis ordered?: No Reason prophylaxis not ordered:: Treatment Not Indicated Patient Problems: Active and Suspected Problems (Last Reviewed 09/27/19 @ 09:00 by GILBERT MachadoC) Left renal stone (Acute) Erythematous bladder mucosa (Acute) Urinary tract infection (Acute) - Physical Exam Vitals/I&O's: Vital Signs Temp Pulse Resp BP Pulse Ox 97 F L 53 L 15 130/63 H 100 11/02/19 06:06 11/02/19 06:06 11/02/19 06:06 11/02/19 06:06 11/02/19 06:06 Oxygen Delivery Method Room Air Weight: 105.8 kg Body Mass Index (BMI) 44.0 General: Alert, Oriented x3, Cooperative, No apparent distress HEENT: Atraumatic, Normocephalic Oral: Moist Mucosa Neck: Supple, Trachea Midline Lungs: Clear to auscultation, Normal air movement Cardiovascular: Regular rate, Regular Rhythm Abdomen: Soft, Non Tender, Non-Distended Skin: No rashes Musculoskeletal: No Muscle Wasting Neurological: Cranial nerves II-XII grossly intact, Neuro grossly intact Psych/Mental Status: Normal Affect, Alert and oriented to time, place, person, mood and affect Laboratory Results 11/01/19 11:30: COVID-19 (BILL) Not Detected Current Medications Cefazolin Sodium 2 gm/ Sodium (Chloride) 110 mls @ 150 mls/hr IV PREOP ONE Stop: 11/02/19 07:43 Lactated Ringer's () 1,000 mls @ 100 mls/hr IV .Q10H TREMAYNE Last Admin: 11/02/19 06:23 Dose: 100 mls/hr Documented by: Assessment/Plan All Active Problems (Last Reviewed 09/27/19 @ 09:00 by GILBERT MachadoC) Left renal stone (Acute) Erythematous bladder mucosa (Acute) Urinary tract infection (Acute) Orthostatic hypotension (Acute) Syncope (Acute) Cystoscopy with bladder biopsy and fulguration, left ureteroscopy laser lithotripsy and left ureteral stent insertion Procedure Criteria Procedure Type: Elective Procedure Essential: Yes Criteria Statement: On 08/17/2019 the [facility] ([facility]) Public Order signed by [facility] Director Chrystal Alvarez M.D., regarding the Management of Non-Essential Surgeries and Procedures for the purpose of preserving Personal Protective Equipment (PPE) and critical hospital capacity and resources within [place] went into effect as of 08/18/2019 at 5:00PM. According to the [facility] Public Order: This action will remain in full force and effect until the State of Emergency declared by the Governor no longer exists or the Director of the [facility] rescinds or modifies this Order. This [facility] order stated all non-essential or elective surgeries and procedures that utilize PPE should be delayed unless there is undue risk to the current or future health of a patient. After reviewing the aforementioned [facility] Public Order and the patient's clinical case, I have determined that the scheduled procedure meets the criteria to go forward. Risk to Patient if Procedure Delayed: Risk of rapidly worsening to severe symptoms if delayed - continuing infection with risk of sepsis COVID Risk Discussion: The surgeon/proceduralist and patient have discussed in detail the risk of exposure to and/or potential harm posed by the COVID-19 virus with having a surgery/procedure at this time versus the risk of delaying the surgery/procedure. It is not possible to know either the risk of delaying the surgery or procedure or chance of getting an infection with perfect accuracy, but a joint decision was made between the patient and the surgeon/proceduralist to proceed at this time with the scheduled surgery/procedure as indicated on the consent form.
--- NOTE | 2019-11-02 07:28 | PCM.OPRPT ---
Problem List (1) Left renal stone Status: Acute (2) Erythematous bladder mucosa Status: Acute (3) Urinary tract infection Status: Acute Report of Operation Date of Procedure: 11/02/19 Pre-Operative Diagnosis: left renal stones, recurrent urinary tract infections, erythematous bladder mucosa Post-Operative Diagnosis: same, and infundibular calyceal stenosis Surgery/Procedure Performed:: cystoscopy, bladder biopsy with fulguration, left retrograde pyelogram, left ureteroscopy, holmium laser of infundibular stenosis, holmium laser lithotripsy, stone basket extraction and left ureteral stent insertion. Type of Anesthesia:: General Specimen's removed: Bladder biopsy and left renal stones Description of Procedure: Patient is a 69-year-old female with known bilateral renal calculi, left stone burden greater than right, along with recurrent urinary tract infections and erythematous bladder lesion found on office cystoscopy. She now presents for bladder biopsy and definitive management of her left renal stones. She is already undergone extracorporal shockwave lithotripsy as well as ureteroscopy laser lithotripsy and stent. Risks benefits and alternatives were discussed including that of COVID-19. She understands and has decided to proceed. She was taken to the operating room and placed on the operating room table. Anesthesia monitored the head, neck, airway, IV access and vital signs throughout the case. Once anesthesia was apparently administered the patient was placed into dorsal lithotomy position was prepped and draped in usual sterile fashion. A cystourethroscopy performed through the urethral was then done. The bladder mucosa was visualized in its entirety. The previously identified area of erythema on the dome of the bladder is no longer seen. On the area of the trigone just medial to the aspect of the left ureteral orifice there is an area of white patch that is concerning for leukoplakia. This is the only other abnormality identified on the bladder mucosa. This area was biopsied and sent for evaluation. The site was fulgurated for hemostatic control and tissue treatment. At this time the left ureter was intubated with 2 separate 0.035 glide wires. One was secured to the drape and used as a safety wire. The other wire was used to insert the ureteral access sheath which was placed under fluoroscopic guidance without difficulty. At this time wire through the access sheath was removed. The flexible ureteroscope was then inserted and the renal pelvis was evaluated with direct visualization and fluoroscopic visualization. The area most consistent with the location of her calcifications was identified in the lower pole. There was infundibular stenosis identified. The holmium laser 2.7 ?m in size was used to open the infundibular stenosis. The scope was then passed into this calyx and a multitude of stone fragments were identified. The laser was then used to fragment the stones further. A stone basket was placed around the stone fragments and they were removed through the reaccessed sheath. This process was performed multiple times until no further stone fragments were identified. A retrograde pyelogram was performed revealing no extravasation of contrast. There was opening into the previously stenotic infundibulum into the calyx. I attempted to place a second wire into this calyx for placement of the ureteral stent, the wire would not stay in this location. The ureteral reaccessed sheath was removed under direct visualization with the ureteroscope and with fluoroscopic visualization. There was no injury to the ureter. At this time, the safety wire was backloaded through the cystoscope and a 6 [place] 24 cm double-J stent was inserted with good curling in the renal pelvis as well as the urinary bladder. The bladder was emptied and the case was terminated. The patient was awakened and taken to the recovery room in good condition. There were no complications. Grafts/Implants Used: 6x24 JJ stent - Complications none - Admit VTE Documentation VTE Present on Admission: Yes VTE Mechan Device Prophylaxis: SCD's VTE Pharm Prophylaxis ordered?: No Reason prophylaxis not ordered:: Treatment Not Indicated
--- NOTE | 2019-11-02 07:31 | DCINST_ITS ---
Discharge Diet: No Restrictions Discharge Activity: May not drive while taking narcotic pain medications. Call your doctor if you observe: Fever of 101 or Higher, Inability to urinate, Inability to have a bowel movement, Uncontrolled pain Allergies/Adverse Reactions: Allergies promethazine HCl [From Phenergan] Allergy (Verified 11/02/19 06:04) Itching Medications to take at Discharge Aspirin E.C. [Ecotrin] 81 mg PO DAILY 08/02/13 Nitroglycerin (INPATIENT USE) [Nitrostat] 0.4 mg SUBLINGUAL Q5M PRN 08/02/13 simvastatin 40 mg tablet 40 mg PO QHS #90 tab 09/21/18 acetaminophen 325 mg tablet 650 mg PO Q8H PRN tab 06/18/19 omeprazole 20 mg capsule,delayed release 20 mg PO QHS 06/22/19 Cholecalciferol (Vitamin D3) [D3-50] 1 cap PO QWEEK 07/10/19 Lorazepam 0.5 mg TID PRN PRN 07/10/19 hydrochlorothiazide 25 mg tablet 25 mg PO DAILY 08/09/19 escitalopram oxalate 10 mg tablet 20 mg PO DAILY tab 09/27/19 metoprolol tartrate 25 mg tablet 12.5 mg PO BID tab 09/27/19 potassium chloride 10 mEq tablet,extended release 20 meq PO DAILY tab 09/27/19 ramipril 2.5 mg capsule 2.5 mg PO DAILY #30 cap 09/27/19 Clopidogrel Bisulfate [Plavix] 75 mg PO DAILY 10/27/19 Oxycodone HCl/Acetaminophen [Percocet 5/325] 2 tab PO Q8H PRN PRN 7 Days #20 tab 11/02/19 Phenazopyridine HCl [Pyridium] 200 mg PO TID PRN PRN 7 Days #30 tab 11/02/19 The following prescriptions were given: Oxycodone HCl/Acetaminophen [Percocet 5/325] 2 tab PO Q8H PRN PRN 7 Days #20 tab PRN Reason: Pain Transmission Status: Sent to [facility] Phenazopyridine HCl [Pyridium] 200 mg PO TID PRN PRN 7 Days #30 tab PRN Reason: Bladder Spasms Transmission Status: Pending to [facility] Orders to be completed after discharge: CORONAVIRUS 19, BILL Time Frame: 11/01/19, Facility: [facility], Location: Laboratory Primary Care Physician: Evangelist Henriquez DO [Primary Care Provider] - Test Results: Test results from this visit will be discussed in further detail at your follow- up appointment, if applicable. Please Follow Up With: Yulissa Rendon MD When: call office for appt next week Proposed Discharge Date: 11/02/19
[2019-11-02] MEDS: Cefazolin 2 GM in 0.9% Normal Saline 100 ML IV (07:37)
[2019-11-02] MEDS: Lubricating Jelly 60 GM Tube 30 GM TOPICAL (07:53)
[2019-11-02 09:31] VITALS: BP 130/63; BP 169/59; PULSE 61; RESP 14; TEMP 36.4; O2SAT 100
[2019-11-02 09:45] VITALS: BP 130/63; BP 146/50; PULSE 57; RESP 16; O2SAT 100
[2019-11-02 09:52] VITALS: BP 130/63; BP 141/61; PULSE 56; RESP 16; TEMP 36.3; O2SAT 100
[2019-11-02] MEDS: Acetaminophen 325 MG Tablet 650 MG PO (11:00)
[2019-11-02] MEDS: oxyCODONE 5 MG Tablet 10 MG PO (11:00)
[2019-11-02 11:30] VITALS: BP 126/62; BP 130/63; PULSE 52; RESP 16; TEMP 36.3; O2SAT 100
== END 2019-11-02 11:30 | disposition home or self-care (01) ==
LOC: SDC 05:39 → AC 05:40
PROVIDERS: PCP Student in an Organized Health Care Education/Training Program; Referring Provider Urology; Visit Provider Urology
PROC: 0TBB8ZX Excision of Bladder, Via Natural or Artificial Opening Endoscopic, Diagnostic (ICD-10-PCS; CPT 52356; principal; 2019-11-02 07:20)
DX: N20.0 Calculus of kidney (principal); Z87.440 Personal history of urinary (tract) infections; G47.33 Obstructive sleep apnea (adult) (pediatric); I25.10 Atherosclerotic heart disease of native coronary artery without angina pectoris; J44.9 Chronic obstructive pulmonary disease, unspecified; E78.5 Hyperlipidemia, unspecified; E66.9 Obesity, unspecified; I50.32 Chronic diastolic (congestive) heart failure; I11.0 Hypertensive heart disease with heart failure; Z68.41 Body mass index [BMI] 40.0-44.9, adult; F32.9 Major depressive disorder, single episode, unspecified; Z79.899 Other long term (current) drug therapy; Z79.02 Long term (current) use of antithrombotics/antiplatelets; Z79.82 Long term (current) use of aspirin; Z95.1 Presence of aortocoronary bypass graft; Z11.59 Encounter for screening for other viral diseases
CPT/HCPCS: 00918; 52224; 52356; 76000; 82360; 87635; 88300; 88305; G2023; J7120; C2617; J2405; U0003

== ENCOUNTER → 2019-11-09 13:54 | Outpatient (CLI) | payer MEDICARE, OTHER, SELFPAY ==
[2019-11-02 06:06] VITALS: BMI 44.0
--- NOTE | 2019-11-09 13:56 | RAD_ITS ---
HISTORY: kidney calculus ADDITIONAL HISTORY: None. COMPARISON: 10/27/2019 Technique: Supine abdominal radiograph(s) Number of images including paperwork: 2 FINDINGS: DEVICES: Left ureteral stent in place. FREE AIR: None detected. BOWEL GAS PATTERN: Nonobstructive. CALCIFICATIONS: Bilateral lower pole renal calculi appear grossly similar. Multiple pelvic calcifications suggestive of phleboliths appear grossly similar. Vascular calcifications. ORGANS: No evidence of organomegaly. SOFT TISSUES: Unremarkable. BONES: No acute skeletal findings. Degenerative changes. RAD/Abdomen Single View IMPRESSION: No acute abdominal abnormality is radiographically apparent. Bilateral nephrolithiasis. at 2242 Reported and signed by: Edelmira Marshall MD Electronically Signed: Edelmira Marshall MD at 22:41 EDT Tel , Service support ,
== END ==
PROVIDERS: PCP Student in an Organized Health Care Education/Training Program; Referring Provider Urology; Visit Provider Urology
DX: N20.0 Calculus of kidney (principal)
CPT/HCPCS: 74018

== ENCOUNTER → 2020-02-23 09:15 | Outpatient (CLI) | payer MEDICARE, OTHER, SELFPAY ==
--- NOTE | 2020-02-23 09:23 | RAD_ITS ---
STUDY: X-RAY - ABDOMEN/PELVIS REASON FOR EXAM: Female, 70 years old. Bilateral kidney stones. TECHNIQUE: Two AP supine views of the abdomen and pelvis. COMPARISON: 11/09/2019. FINDINGS: Normal visualized lung bases. There is an unremarkable bowel gas pattern. There is no demonstrated free abdominal air. The visualized liver, spleen and kidneys are grossly normal in size and morphology. The left ureteral stent, seen on the prior study, is no longer noted. There are calcifications which appear to lie in the lower pole calyx of the left kidney. These appear increased in number and size from the prior study. Small calcifications are also seen overlying the lower pole of the right kidney. These appear stable. Normal soft tissue structures. Stable degenerative changes and levoscoliosis RAD/Abdomen Single View IMPRESSION: 1. Absence of the left ureteral stent seen on the prior study. 2. Bilateral renal calculi. These appear increased on the left when compared to the prior study. Electronically Signed: Orville Greenfield DO at 20:56 EDT Tel [phone], Service support ,
== END ==
LOC: RAD.FUTURE 09:17 → MTRAD 02-24 09:27
PROVIDERS: PCP Student in an Organized Health Care Education/Training Program; Referring Provider Urology; Visit Provider Urology
DX: N39.0 Urinary tract infection, site not specified (principal); N20.0 Calculus of kidney
CPT/HCPCS: 74018

== ENCOUNTER → 2020-02-25 12:48 | Outpatient (CLI) | payer MEDICARE, OTHER, SELFPAY ==
--- NOTE | 2020-02-25 12:52 | CT_ITS ---
STUDY: CT ABDOMEN AND PELVIS WITHOUT CONTRAST REASON FOR EXAM: Female, 70 years old. KIDNEY STONES AND UTI''S. HISTORY OF STONES WITH LITHOTRIPSY. HODA/BSO,CHOLECYSTECTOMY RADIATION DOSAGE (If Supplied By Facility): CTDIvol = ( 14.68 ) mGy, DLP = ( 676.07 ) mGycm TECHNIQUE: Transaxial images were obtained from the dome of the diaphragm to the symphysis pubis without oral contrast, and without intravenous contrast. Sagittal and coronal images were reconstructed. Individualized dose optimization techniques were used for this CT. COMPARISON: Comparison is made with prior study dated 10/17/2017. FINDINGS: The visualized lung bases are unremarkable. The visualized portions of the heart are within normal limits. Normal liver. There are surgical clips in the gallbladder fossa consistent with a prior cholecystectomy. Normal spleen. Normal pancreas. There is a small, circumscribed, smooth, low attenuation right adrenal mass, consistent with an adrenal adenoma. This is unchanged and measures 1.6 cm. 1.2 cm hypodensity in the left adrenal gland. There is a 6.2 mm nonobstructive calculus in the lower pole calyx of the right kidney. Mild degree of right hydronephrosis. A 3 mm calculus is seen approximately portion of the right ureter. I suspect at least 3 tiny calculi in the midportion of the right ureter as well. Stable left nonobstructive intrarenal calculi. Normal visualized stomach. Normal small intestine. There are multiple colonic diverticula consistent with diverticulosis. There is non-visualization of the appendix. There is diffuse atherosclerotic calcification of the abdominal aorta and major visceral branches, without a demonstrated aneurysm. Normal inferior vena cava. Normal retroperitoneum. Normal urinary bladder. There is absence of the uterus consistent with a prior hysterectomy. There is a small umbilical hernia containing fat. There are diffuse degenerative changes of the visualized lumbar spine. CT/Abdomen/Pelvis without Cont IMPRESSION: Stable examination. Electronically Signed: Huseyin Morton, at 13:27 EDT , Service support ,
== END ==
PROVIDERS: PCP Student in an Organized Health Care Education/Training Program; Referring Provider Urology; Visit Provider Urology
DX: N20.0 Calculus of kidney (principal); R10.9 Unspecified abdominal pain
CPT/HCPCS: 74176

== ENCOUNTER → 2021-01-15 10:20 | Outpatient (CLI) | payer MEDICARE, OTHER, SELFPAY ==
[2020-10-07 09:40] VITALS: BMI 44.0
--- NOTE | 2021-01-15 11:25 | BRBX_PTH ---
PATIENT: RUBEN COSTELLO LOC: [facility] U#:[id number] AGE/SX: 75/F ROOM: RE01/15/[address]: Dr. Lex León MD : 1950 BED: DIS: SPEC #: [id number] RECD: 01/15/21 11:47 STATUS: CECY GHADA #: [id number] AURELIA: 01/15/21 11:[address]: Lex León DEPT: SURGICAL PATHOLOGY RECD BY: Radha Geronimo ENTERED: 01/15/21 12:51 SP TYPE: BREAST BX OTHR DR: Dr. Evangelist Henriquez DO Tissues: Right breast, NOS Procedures: Surgery Specimen Level IV HEADER OPERATION: Right breast stereotactic needle core biopsy PRE-OP DIAGNOSIS: Right breast superior-lateral post depth microcalcifications TISSUE SUBMITTED: Right breast ISCHEMIC TIME: 2 minutes FIXATION TIME: 8 hours MICROSCOPIC DIAGNOSIS Right breast, superior-lateral post depth microcalcifications, stereotactic needle core biopsy: Hyalinized fibroadenoma with focal minimal microcalcifications. Negative for atypia or malignancy. See comment. COMMENT The specimen predominantly consists of fatty breast tissue. Correlation with clinical, radiologic findings and appropriate follow up are necessary. Case has been reviewed in consultation with Dr. Theodore who concurs with the above diagnosis. IDC:AM MICROSCOPIC DESCRIPTION Slides are reviewed. GROSS DESCRIPTION Received is one container labeled with the patient's name and not further designated. The specimen consists of multiple irregular and elongated fragments of yellow tissue that in aggregate measure 6 x 5 x 0.3 cm. The specimen is totally submitted in three cassettes. / AM:gray 01/15/21 TC:1 [facility]: [id number]
--- NOTE | 2021-01-15 12:01 | OP.PCM_ITS ---
Problems Associated Problem List Diagnoses (1) Microcalcification of right breast on mammogram: Report of Operation Date of Procedure: 01/15/21 Pre-Operative Diagnosis: Microcalcifications right breast Post-Operative Diagnosis: Same Surgery/Procedure Performed:: Right stereotactic breast biopsy Surgeon: Lex León business rules analyst: None Type of Anesthesia: Local Specimen's removed: Right breast biopsy Description of Procedure: Patient was brought into the mammography unit. Placed in the prone position on the fissure table. Right breast was coming down through the opening. Cc view was obtained. Microcalcifications were identified. ?15 degree views were obtained. I prepped the breast with Betadine. I injected 1% lidocaine plain. Skin alexandru was made. Needle was placed in the prefire position. 2 more stereo views were obtained showing microcalcifications to be adequately targeted. Fired the needle. Took 360 degrees circumferential biopsies. X-ray my specimen. Microcalcifications were identified. Needle was blacked off 7 mm. Small Gelfoam titanium clip was place d. Sterile dressings were applied. The patient tolerated the procedure well. Admit VTE Documentation VTE Present on Admission: No VTE Mechan Device Prophylaxis: None VTE Pharm Prophylaxis ordered?: No Reason prophylaxis not ordered:: Treatment Not Indicated
--- NOTE | 2021-01-15 12:06 | HP.PCM_ITS ---
History and Physical Date of Admission: 01/15/21 HISTORY AND PHYSICAL - BREAST COMPLAINT ? Alise Meeks 1950 ? ? REFERRING PHYSICIAN: Self ? CHIEF COMPLAINT: Mammographic microcalcification found on diagnostic imaging of breast (primary encounter diagnosis) ? HPI: The patient is a 70 year old female with a complaint of an abnormal mammogram. The patient had a mammogram without ultrasound on 01/03/21 which demonstrated calcs right breast: ? ? The patient denies a history of breast masses. She does perform a self breast exam routinely. She notes no skin changes. She denies nipple discharge. She notes no axillary masses. She notes no family history of breast problems. She notes no significant breast trauma or breast difficulties in the past. ? ? The patient is being seen by me today at the request of Dr. Evangelist Henriquez DO for my opinion and advice regarding Mammographic microcalcification found on diagnostic imaging of breast (primary encounter diagnosis). ? PAST MEDICAL HISTORY PAST MEDICAL HISTORY Diagnosis Date ? Abdominal pain, left lower quadrant ? ? Adjustment disorder with depressed mood ? ? Calculus of kidney ? ? CHF (congestive heart failure) (HCC) ? ? Cholelithiasis 06/2013 ? Coronary artery disease ? ? LAD stent, RCA BMS stent, CABG with SVG graft ? Diverticulosis ? ? EBV positive mononucleosis syndrome 06/2013 ? Essential hypertension, benign ? ? H. pylori infection 06/2013 ? Impaired fasting glucose 05/2014 ? Incisional hernia without mention of obstruction or gangrene ? ? Incisional hernia without mention of obstruction or gangrene ? ? Left bundle branch block ? ? chronic ? Myocardial infarct (HCC) ? ? 07/08/[address] BMS to RCA Dr. Huerta ? Other and unspecified hyperlipidemia ? ? Postmenopausal ? ? ? PAST SURGICAL HISTORY PAST SURGICAL HISTORY Procedure Laterality Date ? CABG, ARTERY-VEIN, TWO ? 1999 ? CABG, two grafts ? CARDIAC CATH Left 05/28/2016 ? L heart cardiac cath, coronary ateriography, SVG angiography, ETHAN arteriorgraphy ? COLONOSCOP W/ OR W/O BRSH SPEC ? 11/17/07 ? normal, Dr. León ? CORONARY STENT EA VESSEL ? 2011 ? one vessel BMS, 2011 ? ESWL Left 2017 ? FRAGMENTING/KIDNEY STONE ? approx 2008 ? Lithotripsy ? FRAGMENTING/KIDNEY STONE Right 07/2018 ? Lithotripsy ? LAPAROSCOPIC CHOLEYCYSTECTOMY ? 08/10/13 ? LITHOTRIPSY / 1 SIDE Left 07/01/2018 ? PAST SURGICAL HISTORY OF ? 10/31/14 ? Cardiac stents x 2, [place], Dr. Solo ? REPAIR INCIS HERNIA W MESH ? 12/29/07 ? Dr. León ? REPAIR INCISIONAL HERNIA,REDUCIBLE ? 12/29/07 ? Dr. León ? VAGINAL HYSTERECTOMY ? 2002 ? Hysterectomy, vaginal with BSO ? ? ? CURRENT MEDICATIONS Current Outpatient Medications Medication Sig Dispense Refill ? omeprazole (PRILOSEC) 20 mg capsule Take 20 mg by mouth once daily. ? ? ? Ascorbic Acid (VITAMIN C) 100 mg tablet Take 100 mg by mouth once daily. ? ? ? Magnesium 250 mg tab Take 250 mg by mouth. ? ? ? potassium chloride SR (MICRO-K) 10 mEq CR capsule Two pills by mouth daily. 180 capsule 1 ? escitalopram oxalate (LEXAPRO) 20 mg tablet Take 1 tablet by mouth once daily. 90 tablet 1 ? hydroCHLOROthiazide (HYDRODIURIL, ESIDRIX) 25 mg tablet Take 1 tablet by mouth once daily. 90 tablet 1 ? metoprolol tartrate, short acting, (LOPRESSOR) 50 mg tablet Take 1 tablet by mouth twice daily 60 tablet 0 ? cholecalciferol, Vitamin D3, (VITAMIN D3) 1,250 mcg (50,000 unit) cap capsule Take 1 capsule by mouth one time a week. 12 capsule 3 ? clopidogrel (PLAVIX) 75 mg tablet Take 75 mg by mouth once daily. ? ? ? ramipril (ALTACE) 2.5 mg capsule Take 2.5 mg by mouth once daily. ? ? ? acetaminophen (TYLENOL ARTHRITIS PAIN) 650 mg CR tablet Take 650 mg by mouth every 8 hours as needed for Pain. ? aspirin, enteric coated (ECOTRIN LOW STRENGTH) 81 mg EC tablet Take 1 tablet by mouth once daily. Resume aspirin on 12/16/17 ? 0 ? nitroglycerin sublingual (NITROQUICK) 0.4 mg SL tablet Dissolve 1 tablet under the tongue every 5 minutes as needed for Chest Pain. 1 Bottle of 25 3 ? simvastatin (ZOCOR) 40 mg tablet Take 1 tablet by mouth daily at bedtime. 90 tablet 3 ? COMPOUNDED PRESCRIPTION Powerstep full length original ? (M19.079) Arthritis of foot (primary encounter diagnosis) ? ? (M48.829) Tibialis posterior tendinitis, unspecified laterality ? ? (M21.41, M21.42) Pes planus of both feet 1 Device 0 ? No current facility-administered medications for this visit. ? ? ALLERGIES: Prozac [Fluoxetine Hcl], Phenergan [Promethazine Hcl], and Vicodin [Hydrocodone-Acetaminophen] ? PERSONAL HISTORY: SOCIAL HISTORY Social History ? Tobacco Use ? Smoking status: Never Smoker ? Smokeless tobacco: Never Used Vaping Use ? Vaping Use: Never used Substance Use Topics ? Alcohol use: No ? Drug use: No ? FAMILY HISTORY: FAMILY HISTORY FAMILY HISTORY Problem Relation Age of Onset ? Cancer Mother ? ? lung, smoker ? Seizures Mother ? ? epilepsy ? Cancer Father ? ? gastric, smoker, non alcoholic ? Heart Paternal Aunt ? ? ? REVIEW OF SYMPTOMS: The review of systems data was entered by the nurse and reviewed by me ? Nursing Notes: Aditi Chung LPN 01/09/2021 8:09 AM Signed REVIEW OF SYSTEMS: General: The patient denies fatigue, denies weight loss, denies weight gain, denies feeling hot, and denies feelings of cold. Eyes: The patient denies glaucoma, denies eye injury/surgery, does not wear glasses or contacts. Ear/Nose/Throat: The patient denies allergies, denies hayfever, denies ear infections, and denies bloody noses. Cardiovascular: The patient denies chest pain, NOTES heart disease, NOTES high blood pressure,NOTES cardiac stent, denies prior heart attack, denies irregular heart beat, NOTES high cholesterol, denies poor circulation, NOTES heart failure, other cardiac issues, denies claudication, denies cold feet, denies peripheral arterial stent. Respiratory: The patient denies tuberculosis, denies pneumonia, denies frequent cough, denies pulmonary embolism, denies shortness of breath, and denies coughing up blood. Gastrointestinal: The patient denies difficulty swallowing, NOTES acid reflux, denies ulcers, denies vomiting, denies jaundice/hepatitis, denies gallbladder problems, denies black or tarry stools, NOTES hemorrhoids, denies bleeding from rectum, denies diverticulitis, denies constipation, denies diarrhea, denies loss of stool control, and denies hernias. Kidney/Bladder: The patient NOTES kidney stones, NOTES urine infections, and denies bloody urine. Skin: The patient denies a history of skin cancer, denies bleeding/changing moles, and denies a history of skin rash. Neurologic: The patient denies a history of epilepsy/convulsions, denies headaches, denies head/spinal injuries, and denies stroke/TIA. Psychiatric: The patient denies psychiatric medications, NOTES depression, and denies voices, denies substance abuse. Endocrine: The patient denies thyroid disorders, denies diabetes,NOTES Pre Diabetic, and denies hormonal problems. Hematologic: The patient denies a history of bruising, denies bleeding, and denies anemia, denies blood clots. Infections: The patient NOTES a history of measles and mumps, denies r heumatic fever, and denies sexually transmitted diseases. Musculoskeletal: The patient denies back pain/injury, NOTES back problems, denies sciatica, NOTES knee/foot trouble, NOTES arthritis, or NOTES gout. ? ? When was patient's last Mammogram screening? 01/03/2021 ? Last Colonoscopy: Unknown ? Aditi Chung LPN ? PHYSICAL EXAMINATION: ? General: The patient is 70 year old female, well nourished, well hydrated in no acute distress. The patient is oriented to time, place, and person. ? VITALS: Blood pressure 152/78, pulse 65, temperature (!) 35.9 ?C (96.7 ?F), height 154.9 cm (5' 1), weight 109.8 kg (242 lb), SpO2 97 %. Body mass index is 45.73 kg/m?. ? HEENT: Normal cephalic, ataumatic, pupils are equally round, sclera are anicteric, mucous membranes are moist, oropharynx is clear. Neck has no masses, asymmetry or lymphadenopathy. Thyroid is unremarkable. ? Respiratory: Clear to auscultation and percussion. Normal respiratory excursion and pattern. ? Cardiac: Examination is regular rate and rhythm. ? Abdominal exam: Soft, nontender, with no palpable masses. No hepatosplenomegaly. No palpable hernias. ? Rectal exam: exam deferred Extremities: no clubbing, cyanosis or edema. No adenopathy. ? Breast: Visual inspection reveals no retractions, nipple inversion, or skin changes. Palpation of the right breast reveals no dominant or suspicious masses, but multiple benign-feeling nodules. Palpation of the left breast reveals no dominant or suspicious masses, but multiple benign-feeling nodules. Axillary exam demonstrates no suspicious masses in either the left or right axilla. There is no nipple discharge expressed from either the left or right breast. ? LABORATORY VALUES: As Noted ? RADIOLOGIC STUDIES: As Noted ? Assessment IMPRESSION: Mammographic microcalcification found on diagnostic imaging of breast (primary encounter diagnosis) ? PLAN: I plan to perform a stereotactic biopsy of the right breast. The planned surgical procedure was discussed extensively with the patient. The risks, benefits, anticipated outcomes and possible complications were mentioned. My staff has also explained the procedure in understandable terms and the patient was given the option to take printed material concerning the planned procedure. The patient had the opportunity to ask questions concerning the planned procedure. The patient freely consents to the planned procedure. ? ? Diagnoses: (R92.0) Mammographic microcalcification found on diagnostic imaging of breast (primary encounter diagnosis) ? My findings have been communicated to Dr. Evangelist Henriquez DO via shared medical record. This note will be forwarded to Dr. Evangelist Henriquez DO. ? Return to Clinic: The patient is instructed to follow-up with me after the testing has been completed. ? COVID (Procedure Consent) Procedure Criteria ? Procedure Criteria: Yes Elective The surgeon/proceduralist and patient have discussed in detail the risk of exposure to and/or potential harm posed by the COVID-19 virus with having a surgery/procedure at this time versus the risk of? delaying the surgery/procedure. It is not possible to know either the risk of delaying the surgery or procedure or chance of getting an infection with perfect accuracy, but a joint decision was made between the patient and the surgeon/proceduralist ?to proceed at this time with the scheduled surg juan/procedure as indicated on the consent form. ? ? Lex León III, MD I have re-examined the patient. There are no clinical changes since date of exam.
== END ==
PROVIDERS: PCP Student in an Organized Health Care Education/Training Program; Referring Provider Surgery; Visit Provider Surgery
DX: R92.0 Mammographic microcalcification found on diagnostic imaging of breast (principal); I11.0 Hypertensive heart disease with heart failure; I50.9 Heart failure, unspecified; I25.10 Atherosclerotic heart disease of native coronary artery without angina pectoris; I25.2 Old myocardial infarction; E78.5 Hyperlipidemia, unspecified; Z95.1 Presence of aortocoronary bypass graft; Z79.899 Other long term (current) drug therapy; Z79.82 Long term (current) use of aspirin; M19.079 Primary osteoarthritis, unspecified ankle and foot; M76.829 Posterior tibial tendinitis, unspecified leg; M21.41 Flat foot [pes planus] (acquired), right foot
CPT/HCPCS: 19081; 88305; J7050; A4648

== ENCOUNTER 2021-03-06 00:37 | Emergency (ER) | payer MEDICARE, OTHER, SELFPAY ==
[2021-03-06 00:39] VITALS: BP 161/93; PULSE 125; RESP 26; TEMP 35.9; O2SAT 97; BMI 45.1
--- NOTE | 2021-03-06 00:48 | EKG12_ITS ---
Test Reason : CP Blood Pressure : / mmHG Vent. Rate : 139 BPM Atrial Rate : 147 BPM P-R Int : 168 ms QRS Dur : 136 ms QT Int : 348 ms P-R-T Axes : -05 -43 123 degrees QTc Int : 529 ms Atrial fibrillation Left axis deviation Non-specific intra-ventricular conduction block T wave abnormality, consider lateral ischemia Abnormal ECG Confirmed by ROBERT MCDONNELL, RAFA ([id number]), publications editor ANIBAL TIM ([id number]) on 03/12/2021 9:22:18 A M Referred By: AVIVA Confirmed By:JESUS JONES MD
--- NOTE | 2021-03-06 00:48 | RAD_ITS ---
STUDY: X-RAY CHEST REASON FOR EXAM: Female, 71 years old. chest pain TECHNIQUE: Single AP portable view of the chest. COMPARISON: 06/25/2019. FINDINGS: The lungs are clear and expanded. There is no demonstrated pleural abnormality. Midline sternotomy wires. Normal cardiac size. Normal mediastinum and alban. Normal visualized pulmonary arteries. There is atherosclerotic calcification of the aortic arch with tortuosity. There is demineralization of the osseous structures. There is degenerative osteoarthritis of the bilateral shoulders. There is no demonstrated abnormality of the visualized soft tissue structures of the upper abdomen. RAD/Chest 1 View (Portable) IMPRESSION: No acute cardiopulmonary disease. Electronically Signed: Maura Rodriguez MD at 1:45 EDT , Service support ,
[2021-03-06 00:55] LABS: Absolute Lymphocyte Count 6.34 X10^3/uL (0.83-4.51); Absolute Neutrophil Count 4.2 X10^3/uL (2.0-7.7); Basophil# 0.05 X10^3/uL; Basophil% 0.4 % (0-1); Eosinophil# 0.27 X10^3/uL; Eosinophils% 2.3 % (0-5); Hematocrit 38.1 % (37-47); Hemoglobin 12.3 g/dL (12.0-15.0); Lymphocyte # 6.34 X10^3/ul (0.83-4.51); Lymphocyte % 54.7 % (19-41); Mean Corp Hgb Conc 32.3 g/dL (32-36); Mean Corpuscular Hgb 31.7 pg (27.0-32.0); Mean Corpuscular Volume 98.2 fL (81-99); Mean Platelet Vol. 10.1 fl (6.2-12.0); Monocyte# 0.74 X10^3/uL; Monocyte% 6.4 % (0-10); NRBC Flagged by Analyzer 0 % (0-5); Neutrophil # 4.15 X10^3/uL (2.7-7.7); Neutrophil % 35.9 % (47-70); POSITIVE DIFFERENTIAL YES; Platelet Count 268 K/mm3 (150-450); RBC Distribution Width CV 13.5 % (11.6-14.6); RBC Distribution Width SD 48.7 fl (35.1-43.9); Red Blood Count 3.88 M/mm3 (4.2-5.4); White Blood Count 11.6 K/mm3 (4.4-11.0)
[2021-03-06 00:56] LABS: Differential Indicated SCAN CRITERIA MET
--- NOTE | 2021-03-06 00:56 | EDS_ITS ---
HPI History of Present Illness Chief Complaint: Chest Pain Informant: patient and spouse/S.O. Onset/Context/Timing Onset: Hours (Onset 0 March 05) Activity at onset: sudden Timing: Continuous Quality: Positive for Pressure Location: - (Mid chest with radiation to jaw bilaterally) Current Severity: Gone Maximum Severity: Moderate Worsened By: Nothing Relieved By: Nothing Associated Symptoms: Positive for Nausea, Dyspnea and Palpitations; Negative for Vomiting, Diaphoresis, Cough, Fever, Lightheadedness and Acid Reflux Narrative Narrative: Patient is a 71-year-old woman with history of hypertension, hypercholesterolemia status post 2 vessel bypass surgery in the s. She presents because she developed chest discomfort with radiation to her jaw bilaterally, palpitations and intermittent discomfort in her left arm. She did report nausea. She denies diaphoresis. She states she never had a heart attack. She denies history of atrial fibrillation or cardiac dysrhythmia. She last ate at 1700 on March 05. She denies history of VTE. Denies leg pain, swelling discoloration. Denies orthopnea or PND. 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 Noel Huerta. Prior Similar Symptoms: No Recent Illness/Hospitalization: No CVD Risk Factors: Positive for Hypertension and Hypercholesterolemia PE Risk Factors: Negative for Recent Travel/Surgery, Recent Immobilization, Prior DVT or PE and OCP + Smoking + >/=35 TAD Risk Factors: Positive for Hypertension; Negative for Marfan's Syndrome and Family History [facility] Medical History (Updated 03/06/21 @ 03:[address] Brandyn Berg MD) Abnormal pulmonary function test Atherosclerosis of coronary 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 Atherosclerotic heart disease of [place] coronary artery without angina pectoris Chronic diastolic (congestive) heart failure COPD (chronic obstructive pulmonary disease) Depression Essential hypertension Hemorrhoids Hyperlipidemia Kidney stone Nonspecific abnormal unspecified cardiovascular function study Obesity TATIANA (obstructive sleep apnea) TATIANA (obstructive sleep apnea) Home Medications aspirin 81 mg PO DAILY 08/02/13 [History Last Taken 06/25/19] nitroglycerin 0.4 mg SUBLINGUAL Q5M PRN 08/02/13 [History Last Taken Unknown] acetaminophen 325 mg tablet 650 mg PO Q8H PRN tab 06/18/19 [History Last Taken Unknown] omeprazole 20 mg capsule,delayed release 20 mg PO QHS 06/22/19 [History Last Taken Unknown] cholecalciferol (vitamin D3) 1 cap PO QWEEK 07/10/19 [History Last Taken Unknown] lorazepam 0.5 mg TID PRN PRN 07/10/19 [History Last Taken Unknown] hydrochlorothiazide 25 mg tablet 25 mg PO DAILY 08/09/19 [History Last Taken Unknown] escitalopram oxalate 10 mg tablet 20 mg PO DAILY tab 09/27/19 [History Last Taken Unknown] potassium chloride 10 mEq tablet,extended release 20 meq PO DAILY tab 09/27/19 [History Last Taken Unknown] metoprolol tartrate 25 mg tablet 12.5 mg PO BID #30 tab 08/17/20 [Rx Last Taken Unknown] ramipril 2.5 mg capsule 2.5 mg PO DAILY #90 cap 10/23/20 [Rx Last Taken Unknown] simvastatin 40 mg tablet 40 mg PO QHS #90 tab 12/05/20 [Rx Last Taken Unknown] clopidogrel 75 mg tablet 75 mg PO DAILY #90 tab 02/12/21 [Rx Last Taken Unknown] Allergy/AdvReac Type Severity Reaction Status Date / Time promethazine HCl Allergy Itching Verified 03/06/21 00:39 [From Phenergan] Family History Father Colon cancer Mother Cancer lung Surgical History History of lithotripsy Hx of CABG Postsurgical aortocoronary bypass status Postsurgical percutaneous transluminal coronary angioplasty (PTCA) status S/P coronary artery stent placement (~05/28/16) Social History household members: none housing: apartment pets and animals: Yes pets and animals: dog(s) Smoking Status: Never smoker alcohol intake: never substance use type: does not use ROS ROS ED Constitutional Constitutional ED: Denies chills, fever(s), subjective or sweats Eyes Eyes: Reports none ENT ENT ED: Denies ear pain, rhinorrhea or sore throat Cardiovascular Cardiovascular: Reports as per HPI; Denies orthopnea or paroxysmal nocturnal dyspnea Respiratory/Chest Respiratory/Chest: Reports dyspnea; Denies cough, dyspnea on exertion, orthopnea, paroxysmal nocturnal dyspnea or sputum Gastrointestinal Gastrointestinal: Reports nausea; Denies abdominal pain, constipation, diarrhea or vomiting Genitourinary Genitourinary ED: Denies dysuria, hematuria or urinary frequency Musculoskeletal Musculoskeletal: Denies arthralgias, myalgias or neck pain Integumentary Denies rash Neurologic Neurologic: Denies headache(s) or weakness Hematologic/Lymphatic Hematologic/Lymphatic: Denies easy bleeding or easy bruising EXAM Physical Exam Const Vital Signs: 03/06/21 00:39 03/06/21 00:52 03/06/21 02:15 Temperature 96.6 F L Temperature Source Temporal Pulse Rate 125 H 54 L Respiratory Rate 26 H 19 H Respiratory Effort Normal Respiratory Pattern Normal Blood Pressure 161/93 H 156/62 H Blood Pressure Mean 115 93 Pulse Ox 97 97 Oxygen Delivery Method Room Air Room Air Room Air 03/06/21 03:12 Temperature Temperature Source Pulse Rate 54 L Respiratory Rate 21 H Respiratory Effort Respiratory Pattern Blood Pressure 163/63 H Blood Pressure Mean 96 Pulse Ox 95 Oxygen Delivery Method Room Air Positive well nourished, well developed and obese General Appearance ED: well developed and NAD Nutritional Appearance: obese HEENT Reports TM's clear and moist mucous membranes HEENT Narrative: Uvula midline. Posterior pharynx no erythema. Mallampati score 2 normocephalic Tympanic Membrane ED: Yes TM's clear Eyes PERRL and EOMs intact bilaterally General Eye ED: Negative for pale conjunctiva or scleral icterus Neck no lymphadenopathy, supple and no JVD General: Negative for tenderness Chest Wall inspection of chest normal and palpation of chest normal Resp normal respiratory effort and clear to auscultation bilaterally Effort and Inspection: respiratory distress Cardio no murmurs Rate: Negative for tachycardic Rhythm: Negative for abnormal rhythm GI normal to inspection, nondistended, normoactive bowel sounds, soft to palpation and non-tender Back/Spine no CVA tenderness and no thoracic nor lumbar tenderness Cervical Spine: Negative for cervical spine tenderness Extremity normal to inspection General Extremety ED: Negative for edema, pulses abnormal or tenderness General Extremity: Negative for edema or pulses abnormal Neuro oriented x3 and CN's II-XII intact bilaterally Sensorium / Orientation: awake and alert Psych mental status grossly normal Skin no rashes or lesions noted and no wounds MDM MDM MDM Narrative Medical decision making narrative: Patient with new onset atrial fibrillation with rapid heart. Presently she has no cardiac symptoms. Onset is known and started approximately 1.5 hours ago. Patient will be anticoagulated. She will be consented for deep sedation and cardioversion. Patient received 1 mg/kg of Lovenox prior to cardioversion. She was consented for cardioversion. She will explained risk benefits. She has no allergy to soy products or egg products. Has had no prior complications. Patient given oppor tunity ask questions none were asked regarding the deep sedation. She states she has had family emergency that have been diagnosed with A. fib. She asked if she would be asleep prior to me cardioverting her. I informed her she would. She had no other questions. Patient had a warm sensation and felt as if a firecracker went off in her chest. Monitor now reveals sinus rhythm with a ventricular rate of 62. Patient did not require sedation or cardioversion. She converted on her own. Patient's chads 2 is 2 and patient's Shailesh 2-vas C score is 4. The incidence of thromboembolic phenomena is 4%. Case was cussed Dr. Duenas. He recommended patient follow-up with Dr. Katelyn Cohen to determine anticoagulation. Patient second troponin is 13. Delta is 3. Patient was discharged to home. Lab Data Attestation: I reviewed the patient's lab results. Labs: Laboratory Results - last 24 hr 03/06/21 03/06/21 03/06/21 00:33 00:33 02:50 WBC 11.6 H RBC 3.88 L Hgb 12.3 Hct 38.1 MCV 98.2 MCH 31.7 MCHC 32.3 RDW Std Deviation 48.7 H RDW Coeff of Abelardo 13.5 Plt Count 268 MPV 10.1 Immature Gran % (Auto) 0.300 Neut % (Auto) 35.9 L Lymph % (Auto) 54.7 H Gila % (Auto) 6.4 Eos % (Auto) 2.3 Baso % (Auto) 0.4 Absolute Neuts (auto) 4.2 Absolute Lymphs (auto) 6.34 H Nucleated RBC % 0 Differential Comment SCANNED Sodium 140 Potassium 3.5 Chloride 108 H Carbon Dioxide 24.0 Anion Gap 8 BUN 40 H Creatinine 1.51 H Estim Creat Clear Calc 26.64 Est GFR (MDRD) Af Amer 44 L Est GFR (MDRD) Non-Af 36 L BUN/Creatinine Ratio 26.5 H Glucose 143 H Calcium 9.3 Troponin I High Sens 10 13 TSH 5.77 H Radiography Chest X-Ray - ED: 1 View, Read by ED Physician (X-ray was interpreted by me at 0135. Sternal wires noted.), Unchanged, Heart, Mediastinum, Bony Structures and No Acute Disease Diagnostic Testing: Radiology Impression Chest X-Ray 03/06/21 00:48 IMPRESSION: No acute cardiopulmonary disease. Electronically Signed: Maura Rodriguez MD at 1:45 EDT , Service support , EKG Initial EKG: Attestation: I personally reviewed and interpreted this EKG as follows: Interpretation: Atrial Fibrillation (Ventricular rate 139. QRS duration 136 ms. QT duration 348 ms. [place] to the left. Patient has a nonspecific intraventricular conduction delay. Disagree with computer reading of sinus tachycardia.) Follow-up EKG: Attestation: I personally reviewed and interpreted this EKG as follows: Interpretation: Sinus Rhythm (Ventricular rate is 61. MI interval is 200 ms. Q RS duration 148 ms. QT duration 448 ms. [place] to the left. Patient does have evidence of left bundle branch block. There is no acute ischemic changes noted.) Discharge Plan Triage Chief Complaint: Chest Pain ED Provider: Brandyn Berg Dx/Rx/DC Orders Clinical Impression: Paroxysmal atrial fibrillation with RVR Instructions: ED AFIB Prescriptions: No Action omeprazole 20 mg capsule,delayed release(DR/EC) 20 mg PO QHS RF: 0 acetaminophen 325 mg tablet 650 mg PO Q8H PRN (Reason: Pain Or Fever) RF: 0 potassium chloride 10 mEq tablet extended release 20 meq PO DAILY RF: 0 aspirin 81 MG tablet 81 mg PO DAILY RF: 0 nitroglycerin 0.4 MG tablet 0.4 mg SUBLINGUAL Q5M PRN (Reason: Chest Pain) RF: 0 escitalopram oxalate 10 mg tablet 20 mg PO DAILY RF: 0 lorazepam 0.5 MG tablet 0.5 mg TID PRN PRN (Reason: Anxiety) RF: 0 cholecalciferol (vitamin D3) 1,250 MCG capsule 1 cap PO QWEEK RF: 0 hydrochlorothiazide 25 mg tablet 25 mg PO DAILY RF: 0 metoprolol tartrate 25 mg tablet 12.5 mg PO BID Qty: 30 RF: 12 ramipril 2.5 mg capsule 2.5 mg PO DAILY Qty: 90 RF: 3 simvastatin 40 mg tablet 40 mg PO QHS Qty: 90 RF: 4 clopidogrel 75 mg tablet 75 mg PO DAILY Qty: 90 RF: 3 Primary Care Provider: Evangelist Henriquez Referrals: Evangelist Henriquez DO [Primary Care Provider] - Noel Huerta MD [STAFF PHYSICIAN] - 3-5 Days Activity Restrictions/Additional Instructions: Call Dr. Huerta's office to be seen later this week and determine if it is appropriate to place you on an anticoagulant (blood thinner). Disposition Disposition: Home, Self Care
[2021-03-06 01:16] LABS: Differential Comment SCANNED
--- NOTE | 2021-03-06 01:18 | EKG12_ITS ---
Test Reason : RHYTHM CONVERSION Blood Pressure : / mmHG Vent. Rate : 061 BPM Atrial Rate : 061 BPM P-R Int : 200 ms QRS Dur : 148 ms QT Int : 448 ms P-R-T Axes : 013 -43 091 degrees QTc Int : 450 ms Normal sinus rhythm Left axis deviation Left bundle branch block Abnormal ECG Confirmed by ROBERT MCDONNELL, RAFA ([id number]), medical editor ANIBAL TIM ([id number]) on 03/12/2021 9:22:40 A M Referred By: AVIVA Confirmed By:JESUS JONES MD
[2021-03-06 01:19] LABS: Anion Gap 8 (5-15); BUN 40 mg/dL (7-18); BUN/Creat Ratio 26.5 RATIO (10-20); Calcium,Total 9.3 mg/dL (8.5-10.1); Chloride 108 mmol/L (98-107); Creatinine, Serum 1.51 mg/dL (0.55-1.02); EST Glomerular Filtration Rate 36 mL/min (>60); Est Glom Filt Rate - Afr Amer 44 mL/min (>60); Estimated Creatinine Clearance 26.64 ml/min; Glucose 143 mg/dL (74-106); Potassium 3.5 mmol/L (3.5-5.1); Sodium Level 140 mmol/L (136-145); Thyroid Stim Hormone (TSH) 5.77 uIU/mL (0.358-3.74); Troponin-I HS 10 pg/mL (3.0-54.0)
[2021-03-06 02:15] VITALS: BP 156/62; PULSE 54; RESP 19; O2SAT 97
[2021-03-06 03:12] VITALS: BP 163/63; PULSE 54; RESP 21; O2SAT 95
[2021-03-06 03:33] LABS: Troponin-I HS 13 pg/mL (3.0-54.0)
[2021-03-06 03:54] VITALS: BP 158/61; PULSE 63; RESP 15; O2SAT 98
== END 2021-03-06 03:55 | disposition home or self-care (01) ==
PROVIDERS: Emergency Provider Emergency Medicine; PCP Student in an Organized Health Care Education/Training Program
DX: I48.0 Paroxysmal atrial fibrillation (principal); I25.810 Atherosclerosis of coronary artery bypass graft(s) without angina pectoris; E66.9 Obesity, unspecified
CPT/HCPCS: 71045; 80048; 84443; 84484; 85025; 93005; 99285; A4216

== ENCOUNTER 2021-05-15 11:32 | Inpatient (IN) | payer MEDICARE, OTHER, SELFPAY ==
[2021-05-15] VITALS (14 sets, daily range): BP systolic 102–137; BP diastolic 48–74; PULSE 53–72; RESP 15–18; TEMP 36.3–36.8; O2SAT 93–100; BMI 43.9; BMI 45.7; BMI 46.7
--- NOTE | 2021-05-15 12:19 | CT_ITS ---
STUDY: CT ABDOMEN AND PELVIS WITHOUT CONTRAST REASON FOR EXAM: Female, 71 years old. ABDOMINAL PAIN. RADIATION DOSAGE (If Supplied By Facility): CTDIvol = ( 21.96 ) mGy, DLP = ( 1091.64 ) mGycm TECHNIQUE: Transaxial images were obtained from the dome of the diaphragm to the symphysis pubis without oral contrast, and without intravenous contrast. Sagittal and coronal images were reconstructed. Individualized dose optimization techniques were used for this CT. COMPARISON: Comparison is made with prior examination dated 02/25/2020. FINDINGS: The visualized lung bases are unremarkable. The visualized portions of the heart are within normal limits. Normal liver. There are surgical clips in the gallbladder fossa consistent with a prior cholecystectomy. Normal spleen. Normal pancreas. There is a small, circumscribed, smooth, low attenuation right adrenal mass, consistent with an adrenal adenoma. This measures 1.2 cm. This is unchanged. Normal left adrenal gland. 7 mm calculus in the lower pole calyx of the right kidney. Mild degree of right hydronephrosis and proximal right hydroureter due to a 2.5 mm calculus in the midportion of the right ureter.. There are 2 nonobstructive intrarenal calculi in the lower pole of the left kidney. The larger calculus measures 8.9 mm. Normal visualized stomach. Normal small intestine. There are multiple colonic diverticula consistent with diverticulosis. The appendix is visualized and appears normal. There is diffuse atherosclerotic calcification of the abdominal aorta and its major visceral branches, without a demonstrated aneurysm. Normal inferior vena cava. Normal retroperitoneum. Normal urinary bladder. There is absence of the uterus consistent with a prior hysterectomy. There is a small umbilical hernia containing fat. There are diffuse degenerative changes of the visualized lumbar spine. CT/Abdomen/Pelvis without Cont IMPRESSION: Bilateral nonobstructive intrarenal calculi. 2.5 mm catheter is in the midportion of the right kidney with right hydronephrosis in the right perinephric stranding. Electronically Signed: Huseyin Morton MD at 13:29 EST , Service support ,
--- NOTE | 2021-05-15 12:27 | EX.ED.DYSGE1 ---
HPI History of Present Illness Chief Complaint: Complaint Informant: patient Onset/Context/Timing Onset: Days (3) Context: Gradual Onset Timing: Continuous Quality: Dull Location: Right flank and right lower quadrant Worsened by: Nothing Relieved by: Nothing Narrative Narrative: Patient presents with right flank pain and abdominal pain that began 3 days ago. Patient states that it felt like prior kidney stone pain. Patient states she felt like it moved into her bladder. Patient states that her flank pain has improved. Patient states that she has been having some persistent hematuria. Patient is on Eliquis. Patient denies any fevers or chills. Patient states that she did break absorb sweat at one time. Patient describes her pain as dull. Patient states it is mostly over the right flank and right lower abdomen. Patient states that she called her primary care physician's office and was told that since she is still having some hematuria and had an episode of chills that she should come to the emergency department to be checked for possible sepsis. [facility] Medical History (Updated 05/15/21 @ 17:[address] Yulissa Rendon MD) Abnormal pulmonary function test Atherosclerosis of coronary 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 Atherosclerotic heart disease of [place] coronary artery without angina pectoris Chronic diastolic (congestive) heart failure COPD (chronic obstructive pulmonary disease) Depression Erythematous bladder mucosa Essential hypertension Hemorrhoids Hydronephrosis Hyperlipidemia Kidney stone Left renal stone Microcalcification of right breast on mammogram Morbid obesity Nonspecific abnormal unspecified cardiovascular function study Obesity TATIANA (obstructive sleep apnea) TATIANA (obstructive sleep apnea) Paroxysmal A-fib Paroxysmal atrial fibrillation Stage 3b chronic kidney disease (CKD) Home Medications aspirin 81 mg PO DAILY 08/02/13 [History Last Taken 05/15/21] omeprazole 20 mg capsule,delayed release 20 mg PO QHS 06/22/19 [History Last Taken 05/14/21] cholecalciferol (vitamin D3) 1 cap PO SA 07/10/19 [History Last Taken 05/12/21] hydrochlorothiazide 25 mg tablet 25 mg PO DAILY 08/09/19 [History Last Taken 05/15/21] potassium chloride 10 mEq tablet,extended release 20 meq PO DAILY tab 09/27/19 [History Last Taken 05/15/21] metoprolol tartrate 25 mg tablet 12.5 mg PO BID #30 tab 08/17/20 [Rx Last Taken 05/15/21] ramipril 2.5 mg capsule 2.5 mg PO DAILY #90 cap 10/23/20 [Rx Last Taken 05/15/21] simvastatin 40 mg tablet 40 mg PO QHS #90 tab 12/05/20 [Rx Last Taken 05/14/21] apixaban 5 mg tablet 5 mg PO BID #180 tab 03/08/21 [Rx Last Taken 05/15/21] acetaminophen 1,000 mg PO Q6H PRN 05/15/21 [History Last Taken 05/15/21 06:00] escitalopram oxalate 20 mg PO DAILY 05/15/21 [History Last Taken 05/15/21] Allergy/AdvReac Type Severity Reaction Status Date / Time No Known Allergies Allergy Verified 05/15/21 11:33 Family History Father Colon cancer Mother Cancer lung Surgical History History of lithotripsy Hx of CABG Postsurgical aortocoronary bypass status Postsurgical percutaneous transluminal coronary angioplasty (PTCA) status S/P coronary artery stent placement (~05/28/16) Social History household members: none housing: apartment pets and animals: Yes pets and animals: dog(s) Smoking Status: Never smoker alcohol intake: never substance use type: does not use ROS ROS ED Constitutional Constitutional ED: Reports sweats; Denies chills or fever(s) Eyes Eyes: Denies blurry vision or change in vision ENT ENT ED: Denies rhinorrhea or sore throat Cardiovascular Cardiovascular: Denies chest pain or palpitations Respiratory/Chest Respiratory/Chest: Reports dyspnea; Denies cough Gastrointestinal Gastrointestinal: Reports abdominal pain, nausea and vomiting Genitourinary Genitourinary ED: Reports hematuria and urinary frequency; Denies dysuria Musculoskeletal Musculoskeletal: Denies back pain or neck pain Integumentary Denies abscess or rash Neurologic Neurologic: Reports headache(s); Denies weakness Allergic/Immunologic Allergic/Immunologic ED: Denies mouth swelling or urticaria EXAM Physical Exam Const Vital Signs: 05/15/21 11:33 05/15/21 13:42 05/15/21 14:28 Temperature 97.3 F L 97.9 F Temperature Source Temporal Temporal Pulse Rate 61 56 L 53 L Respiratory Rate 18 16 16 Blood Pressure 130/51 H 116/48 L 128/52 H Blood Pressure Mean 77 70 77 Pulse Ox 98 97 98 Oxygen Delivery Method Room Air Room Air Room Air Positive well nourished, well developed and obese General Appearance ED: well developed Nutritional Appearance: obese HEENT Reports moist mucous membranes Neck supple and no JVD Resp normal respiratory effort and clear to auscultation bilaterally Cardio regular rate, regular rhythm and no murmurs GI normal to inspection, nondistended, normoactive bowel sounds Palpation: soft and tender RLQ and suprapubic; Negative for guarding or rebound tenderness present Back/Spine no CVA tenderness Extremity normal to inspection General Extremety ED: Negative for edema or tenderness General Extremity: Negative for edema Neuro oriented x3, CN's II-XII intact bilaterally and no sensory deficits noted Sensorium / Orientation: alert Motor Exam: strength 5/5 throughout Psych mental status grossly normal Skin no rashes or lesions noted MDM MDM MDM Narrative Medical decision making narrative: T scan of the abdomen pelvis was obtained. There is a 2.5 mm calculus in the midportion of the right ureter. There are 2 nonobstructive intrarenal calculi in the lower pole of the left kidney. There is a 7 mm calculus in lower pole of the right kidney. This was interpreted by the radiologist and reviewed by myself. CBC shows a leukocytosis of 28.8. PT with INR was obtained. INR was 2.6. Comprehensive metabolic profile showed a creatinine of 2.47 and BUN of 58. Urinalysis showed leukocyte esterase of 500. There is greater than 100 red blood cells and 25-50 white blood cells. There is 1+ bacteria. Urine culture was ordered. Patient was started on Rocephin. Case was discussed with Dr. Rendon, her urologist. She recommended admitting to the hospitalist service and she will consult. Case was discussed with the hospitalist. She will admit the patient to her service. Patient understands and is agreeable with the plan. All questions were answered. Lab Data Attestation: I reviewed the patient's lab results. Labs: Laboratory Results - last 24 hr 05/15/21 05/15/21 05/15/21 12:33 12:33 12:33 WBC 28.8 H RBC 3.50 L Hgb 10.9 L Hct 33.5 L MCV 95.7 MCH 31.1 MCHC 32.5 RDW Std Deviation 46.7 H RDW Coeff of Abelardo 13.3 Plt Count 182 MPV 10.5 Neut % (Auto) Not Reportable Absolute Neuts (auto) 24.2 H Absolute Lymphs (auto) 1.70 Total Counted 100 Neutrophils % (Manual) 81 H Band Neutrophils % 3 Lymphocytes % (Manual) 6 L Monocytes % (Manual) 7 Metamyelocytes % 3 H Diff Path Review May foll Platelet Estimate ADEQUATE RBC Morphology NORM C+C PT 27.2 H INR 2.6 Sodium 138 Potassium 3.8 Chloride 108 H Carbon Dioxide 19.0 L Anion Gap 11 BUN 58 H Creatinine 2.47 H Estim Creat Clear Calc 16.28 Est GFR (MDRD) Af Amer 25 L Est GFR (MDRD) Non-Af 20 L BUN/Creatinine Ratio 23.5 H Glucose 192 H Hemoglobin A1c Calcium 8.8 Total Bilirubin 0.40 AST 31 ALT 35 Alkaline Phosphatase 86 Total Protein 6.6 Albumin 2.3 L Globulin 4.3 H Albumin/Globulin Ratio 0.5 L Lipase 90 Urine Color Urine Clarity Urine pH Ur Specific [place] Urine Protein Urine Glucose (UA) Urine Ketones Urine Occult Blood Urine Nitrite Urine Bilirubin Urine Urobilinogen Ur Leukocyte Esterase Urine RBC Urine WBC Ur Squamous Epith Cells Urine Bacteria Urine Mucus 05/15/21 05/15/21 12:33 12:50 WBC RBC Hgb Hct MCV MCH MCHC RDW Std Deviation RDW Coeff of Abelardo Plt Count MPV Neut % (Auto) Absolute Neuts (auto) Absolute Lymphs (auto) Total Counted Neutrophils % (Manual) Band Neutrophils % Lymphocytes % (Manual) Monocytes % (Manual) Metamyelocytes % Diff Path Review Platelet Estimate RBC Morphology PT INR Sodium Potassium Chloride Carbon Dioxide Anion Gap BUN Creatinine Estim Creat Clear Calc Est GFR (MDRD) Af Amer Est GFR (MDRD) Non-Af BUN/Creatinine Ratio Glucose Hemoglobin A1c 5.6 Calcium Total Bilirubin AST ALT Alkaline Phosphatase Total Protein Albumin Globulin Albumin/Globulin Ratio Lipase Urine Color Red Urine Clarity Turbid Urine pH 6.5 Ur Specific [place] 1.015 Urine Protein 500 H Urine Glucose (UA) Normal Urine Ketones Negative Urine Occult Blood 250 H Urine Nitrite Negative Urine Bilirubin Negative Urine Urobilinogen Normal Ur Leukocyte Esterase 500 H Urine RBC > 100 SEEN Urine WBC 25-50 SEEN Ur Squamous Epith Cells 0-5 SEEN Urine Bacteria 1+ Urine Mucus 0 SEEN Treatment and Re-Evaluation Vital Sign Attestation:: Vital signs were reviewed prior to admission. They are stable. Discharge Plan Dx/Rx/DC Orders Clinical Impression: Right ureteral calculus, Urinary tract infection, Leukocytosis Disposition Disposition: Acute Care [facility] Discharge Date/Time: 05/15/21 16:53
[2021-05-15 12:41] LABS: Hematocrit 33.5 % (37-47); Hemoglobin 10.9 g/dL (12.0-15.0); Mean Corp Hgb Conc 32.5 g/dL (32-36); Mean Corpuscular Hgb 31.1 pg (27.0-32.0); Mean Corpuscular Volume 95.7 fL (81-99); Mean Platelet Vol. 10.5 fl (6.2-12.0); POSITIVE COUNT YES; POSITIVE DIFFERENTIAL YES; POSITIVE MORPHOLOGY YES; Platelet Count 182 K/mm3 (150-450); RBC Distribution Width CV 13.3 % (11.6-14.6); RBC Distribution Width SD 46.7 fl (35.1-43.9); White Blood Count 28.8 K/mm3 (4.4-11.0)
[2021-05-15 12:43] LABS: Differential Indicated MANUAL DIFF
[2021-05-15 12:55] LABS: Mucous, Urine 0 SEEN /hpf (<or=2+)
[2021-05-15 12:56] LABS: Color, Urine Red (Yellow); Glucose, Dipstick Normal (Normal); Ketone-Dipstick Negative (Negative); Leukocyte Esterase-Dipstick 500 /ul (Negative); Nitrite-Dipstick Negative (Negative); Occult Blood-Urine 250 /ul (Negative); Protein-Dipstick 500 mg/dl (Negative); Specific Gravity, Urine 1.015 (1.002-1.030); Urine Bilirubin Dipstick Negative (Negative); Urine Clarity Turbid (Clear); Urine Urobilinogen Normal (Normal); Urine pH 6.5 (5.0 - 8.0)
[2021-05-15 12:59] LABS: ALB/GLOB Ratio 0.5 RATIO (0.9-2.4); AST(SGOT) 31 U/L (15-37); Alanine Aminotransfer ALT/SGPT 35 U/L (13-56); Albumin, Serum 2.3 g/dL (3.2-5.0); Alkaline Phosphatase 86 U/L (45-117); Anion Gap 11 (5-15); BUN 58 mg/dL (7-18); BUN/Creat Ratio 23.5 RATIO (10-20); Calcium,Total 8.8 mg/dL (8.5-10.1); Chloride 108 mmol/L (98-107); Creatinine, Serum 2.47 mg/dL (0.55-1.02); EST Glomerular Filtration Rate 20 mL/min (>60); Est Glom Filt Rate - Afr Amer 25 mL/min (>60); Estimated Creatinine Clearance 16.28 ml/min; Globulin 4.3 g/dL (2.2-4.2); Glucose 192 mg/dL (74-106); Lipase 90 U/L (73-393); Potassium 3.8 mmol/L (3.5-5.1); Protein, Total 6.6 g/dL (6.4-8.2); Sodium Level 138 mmol/L (136-145)
[2021-05-15 13:02] LABS: Red Blood Cells-Urine > 100 SEEN /hpf (0-5)
[2021-05-15 13:03] LABS: Squamous Epithelial Cells - UA 0-5 SEEN /hpf (5-10); White Blood Cells 25-50 SEEN /hpf (0-5)
[2021-05-15 13:04] LABS: Bacteria 1+ /hpf (None Seen)
[2021-05-15 13:04] LABS: International Normalized Ratio 2.6; Prothrombin Time (Protime)PT. 27.2 SECONDS (11.7-14.9)
[2021-05-15 13:45] LABS: Lymphocyte 6 % (19-41); Metamyelocyte 3 % (0-1); Monocyte 7 % (0-10); Neutrophil-Band 3 % (0-5); Neutrophil-Segmented 81 % (47-70); Total Cells Counted 100 (MANUAL DIFF)
[2021-05-15 13:46] LABS: Platelet Estimate ADEQUATE (ADEQ); Red Cell Morphology NORM C+C NORMAL (NORM C&C)
[2021-05-15 13:47] LABS: Absolute Neutrophil Count 24.2 X10^3/uL (2.0-7.7)
[2021-05-15] MEDS: 0.9% Normal Saline 1,000 ML 1000 ML IV (15:30)
[2021-05-15] MEDS: Ceftriaxone 1 GM/50 ML BAG IV (15:30)
--- NOTE | 2021-05-15 15:33 | PCM.HP.STD ---
HPI - General General Date of Admission: 05/15/21 Date of Service: 05/15/21 Chief Complaint: Right flank pain HPI Narrative RUBEN COSTELLO, is a 71 F who presented to the emergency department [facility] complaining of approximately 3 days of right flank pain and abdominal pain. On presentation she reported that it felt like a previous kidney stone she had suffered from. She actually is feeling somewhat better with regards to her pain and feels that the stone may have moved some. She has been having persistent hematuria and is on apixaban at baseline for paroxysmal atrial fibrillation. She denied any fever or chills up until today when she did experience 1 bout of chills but does complain of some dysuria along with her hematuria and flank pain. She decided to present to the emergency department when she had chills that she was concerned that maybe she was developing sepsis. She has seen Dr. Rendon in the past for her urological issues. Her vitals in the emergency department show that she is afebrile her heart rate is slightly bradycardic with rates 54-67 her blood pressure is within normal range and her respiratory rate is 16-18 with saturations at 97 to 100% on room air. She indicates she has been vaccinated for Covid but not yet been boosted as she is not 6 months out from her second vaccination. Her CBC shows a marked leukocytosis with a white count of 28.8 and significant left shift. Her hemoglobin is mildly low at 10.9 with previous being 12.4 but her platelets are within normal limits. Her coags are elevated with an INR of 2.6 and a PTT of 27.2 likely related to her Eliquis use. Her CMP shows mild hyperchloremia with a metabolic acidosis having a serum bicarb of 19 and normal anion gap but an elevated BUN and creatinine at 58 and 2.47 respectively. Her baseline BUN appears to be about 30-40 and her baseline serum creatinine appears to be 1.2-1.5. Her LFTs are unremarkable. Her lipase is within normal limits her UA shows hematuria and is suggestive of infection. A CT of her abdomen and pelvis was performed and shows stones in bilateral ureters and kidneys official read is pending upon admission. The case was discussed by the ER physician with urology and they indicated they would see her in consultation after admission. In the emergency department she was given 1 L normal saline and ceftriaxone 1 g. Previous cultures were reviewed and it appears she has grown out Klebsiella that is sensitive to ceftriaxone. [facility] Medical History Abnormal pulmonary function test Atherosclerosis of coronary 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 Atherosclerotic heart disease of [place] coronary artery without angina pectoris Chronic diastolic (congestive) heart failure COPD (chronic obstructive pulmonary disease) Depression Erythematous bladder mucosa Essential hypertension Hemorrhoids Hyperlipidemia Kidney stone Left renal stone Microcalcification of right breast on mammogram Morbid obesity Nonspecific abnormal unspecified cardiovascular function study Obesity TATIANA (obstructive sleep apnea) TATIANA (obstructive sleep apnea) Paroxysmal A-fib Paroxysmal atrial fibrillation Stage 3b chronic kidney disease (CKD) Home Medications aspirin 81 mg PO DAILY 08/02/13 [History Last Taken 05/15/21] omeprazole 20 mg capsule,delayed release 20 mg PO QHS 06/22/19 [History Last Taken 05/14/21] cholecalciferol (vitamin D3) 1 cap PO SA 07/10/19 [History Last Taken 05/12/21] hydrochlorothiazide 25 mg tablet 25 mg PO DAILY 08/09/19 [History Last Taken 05/15/21] potassium chloride 10 mEq tablet,extended release 20 meq PO DAILY tab 09/27/19 [History Last Taken 05/15/21] metoprolol tartrate 25 mg tablet 12.5 mg PO BID #30 tab 08/17/20 [Rx Last Taken 05/15/21] ramipril 2.5 mg capsule 2.5 mg PO DAILY #90 cap 10/23/20 [Rx Last Taken 05/15/21] simvastatin 40 mg tablet 40 mg PO QHS #90 tab 12/05/20 [Rx Last Taken 05/14/21] apixaban 5 mg tablet 5 mg PO BID #180 tab 03/08/21 [Rx Last Taken 05/15/21] acetaminophen 1,000 mg PO Q6H PRN 05/15/21 [History Last Taken 05/15/21 06:00] escitalopram oxalate 20 mg PO DAILY 05/15/21 [History Last Taken 05/15/21] Allergy/AdvReac Type Severity Reaction Status Date / Time No Known Allergies Allergy Verified 05/15/21 11:33 Family History Father Colon cancer Mother Cancer lung Surgical History History of lithotripsy Hx of CABG Postsurgical aortocoronary bypass status Postsurgical percutaneous transluminal coronary angioplasty (PTCA) status S/P coronary artery stent placement (~05/28/16) Social History household members: none housing: apartment pets and animals: Yes pets and animals: dog(s) Smoking Status: Never smoker alcohol intake: never substance use type: does not use ROS Constitutional Constitutional: Denies anorexia, change in weight, chills, fatigue, fever(s), malaise, night sweats, weakness or other Eyes Eyes: Denies blurry vision, change in eye color, change in vision, discharge from eye(s), double vision, erythema, eye pain, loss of vision or other ENT HEENT: Denies abnormal hearing, dysphagia, ear pain, epistaxis, headache(s), hearing loss, nasal congestion, nasal discharge, post nasal drip, sinus pressure, sore throat or other Cardiovascular Cardiovascular: Denies chest pain, claudication, dyspnea on exertion, edema, lightheadedness, orthopnea, palpitations, paroxysmal nocturnal dyspnea, rapid heart rate, syncope or other Respiratory/Chest Respiratory/Chest: Denies cough, dyspnea, excessive phlegm production, hemoptysis, productive cough, shortness of breath at rest, shortness of breath with exertion, wheezing or other Gastrointestinal Gastrointestinal: Reports nausea; Denies abdominal pain, coffee ground emesis, constipation, diarrhea, dyspepsia, hematemesis, hematochezia, loose stools, melena, vomiting or other Genitourinary Genitourinary: Reports burning urination, dysuria, hematuria, urinary frequency and other Details: Flank pain Musculoskeletal Musculoskeletal: Denies arthralgias, back pain, joint pain, joint stiffness, joint swelling, myalgias, neck pain or other Neurologic Neurologic: Denies abnormal gait, abnormal speech, confusion, disequilibrium, dizziness, focal weakness, headache(s), numbness, paresthesias, seizure-like activity, seizures, syncope, tingling, tremor(s) or other Psychiatric Psychiatric: Denies anxiety, depression, homicidal ideation, suicidal ideation or other Endocrine Endocrinology: Denies change in body appearance, cold intolerance, excessive sweating, heat intolerance, polydipsia, polyuria or other Hematologic/Lymphatic Hematologic/Lymphatic: Denies anemia, easy bleeding, easy bruising, lymphadenopathy or other Allergic/Immunologic Allergic/Immunologic: Denies rhinitis, hives, eczemia, asthma or other Vital Signs Vital Signs Vital Signs: 05/15/21 11:33 05/15/21 13:42 05/15/21 14:28 Temperature 97.3 F L 97.9 F Temperature Source Temporal Temporal Pulse Rate 61 56 L 53 L Respiratory Rate 18 16 16 Blood Pressure 130/51 H 116/48 L 128/52 H Blood Pressure Mean 77 70 77 Pulse Ox 98 97 98 Oxygen Delivery Method Room Air Room Air Room Air Weight Weight: 108.862 kg Body Mass Index (BMI) 43.9 Physical Exam Const alert, oriented x3 and no apparent distress Constitutional Narrative: Morbidly obese white female, ambulating back to the bed, nontoxic and appears comfortable, mild shortness of breath with exertion but not hypoxic and sats are 98% on room air General Appearance: cooperative HEENT normocephalic, head/scalp atraumatic, hearing grossly normal bilaterally and moist oral mucous membranes HEENT Narrative: Mallampati is 3, no thrush, dentition is fair Eyes PERRL, EOMs intact bilaterally and conjunctivae normal Eyes Narrative: No scleral icterus Neck no lymphadenopathy, supple, no JVD and no carotid bruits Neck Narrative: Short thick neck, trachea midline, no thyroid enlargement Resp normal respiratory effort, no retractions, no use of accessory muscles and clear to auscultation bilaterally Resp Narrative: Distant secondary to body habitus but clear Auscultation: Negative for crackles, rales, rhonchi or wheezes Cardio regular rate, regular rhythm, S1 normal heart sound, S2 normal heart sound, no murmurs, no rub, no gallops, no clicks and no JVD GI normal to inspection, nondistended, normoactive bowel sounds, soft to palpation, non-distended and hepatosplenomegaly GI Narrative: Mild right-sided flank tenderness Extremity Extremity Narrative: Trace bilateral lower extremity edema with no cyanosis or clubbing Peripheral Pulses: Yes pulses 2+ throughout Skin no rashes or lesions noted, no wounds, skin turgor normal, no jaundice, no petechiae and no mottling Neuro oriented x3, CN's II-XII intact bilaterally, moves all extremities and no focal motor deficits Sensorium / Orientation: awake and alert Speech: speech normal Motor Exam: strength 5/5 throughout Psych affect normal Results Lab / Micro Data Attestation: I reviewed the patient's lab results. Result Diagrams: 05/15/21 12:33 05/15/21 12:33 Labs: Laboratory Results - last 24 hr 05/15/21 12:33: WBC 28.8 H, RBC 3.50 L, Hgb 10.9 L, Hct 33.5 L, MCV 95.7, MCH 31.1, MCHC 32.5, RDW Std Deviation 46.7 H, RDW Coeff of Abelardo 13.3, Plt Count 182, MPV 10.5, Neut % (Auto) Not Reportable, Absolute Neuts (auto) 24.2 H, Absolute Lymphs (auto) 1.70, Total Counted 100, Neutrophils % (Manual) 81 H, Band Neutrophils % 3, Lymphocytes % (Manual) 6 L, Monocytes % (Manual) 7, Metamyelocytes % 3 H, Diff Path Review September, Platelet Estimate ADEQUATE, RBC Morphology NORM C+C 05/15/21 12:33: PT 27.2 H, INR 2.6 05/15/21 12:33: Sodium 138, Potassium 3.8, Chloride 108 H, Carbon Dioxide 19.0 L, Anion Gap 11, BUN 58 H, Creatinine 2.47 H, Estim Creat Clear Calc 16.28, Est GFR (MDRD) Af Amer 25 L, Est GFR (MDRD) Non-Af 20 L, BUN/Creatinine Ratio 23.5 H, Glucose 192 H, Calcium 8.8, Total Bilirubin 0.40, AST 31, ALT 35, Alkaline Phosphatase 86, Total Protein 6.6, Albumin 2.3 L, Globulin 4.3 H, Albumin/Globulin Ratio 0.5 L, Lipase 90 05/15/21 12:50: Urine Color Red, Urine Clarity Turbid, Urine pH 6.5, Ur Specific [place] 1.015, Urine Protein 500 H, Urine Glucose (UA) Normal, Urine Ketones Negative, Urine Occult Blood 250 H, Urine Nitrite Negative, Urine Bilirubin Negative, Urine Urobilinogen Normal, Ur Leukocyte Esterase 500 H, Urine RBC > 100 SEEN, Urine WBC 25-50 SEEN, Ur Squamous Epith Cells 0-5 SEEN, Urine Bacteria 1+, Urine Mucus 0 SEEN Assessment & Plan Assessment/Plan (1) Right ureteral calculus: (2) Urinary tract infection: (3) Leukocytosis: (4) LINDA (acute kidney injury): (5) Hyperglycemia: (6) Metabolic acidosis: (7) Hematuria: PLAN: Bilateral nephrolithiasis with complicated UTI -Urine and blood cultures are pending -Start ceftriaxone -Previous cultures have yielded Klebsiella which is sensitive to ceftriaxone -We will need extended course of treatment given the fact that this is complicated -Hold Eliquis for potential intervention with regards to nephrolithiasis -Antiemetics -As needed Dilaudid for pain -Patient to be n.p.o. after midnight -Consult Dr. Rendon--> she is aware as the ED did discuss the case with her LINDA on CKD stage III -Normal saline at 75 cc/h -Avoid nephrotoxins -Suspect prerenal -If no improvement tomorrow would work-up further with urine lytes and potential ultrasound to calculate FeNa -Hold ramipril and HCTZ Hematuria -Likely related to nephrolithiasis and full anticoagulation with DOAC -DOAC on hold -Follow CBC -Patient with mild acute anemia on admission Acute anemia -Patient with hematuria -Current hemoglobin is 10.9 -Baseline hemoglobin appears to fluctuate -Continue to monitor -Last measured hemoglobin was 12.3 on 03/06/2021 Leukocytosis -Work-up as above -Repeat CBC in a.m. -Suspect related to acute infection Metabolic acidosis -Hypochloremia with a serum bicarb of 19 -Anion gap is 11 -Anticipate related to acute kidney injury on CKD Hypertension -Hold ramipril and HCTZ given acute kidney injury -Continue metoprolol -As needed hydralazine for systolic blood pressure greater than 160 Hyperlipidemia -Continue simvastatin TATIANA -Patient wears CPAP at 14 at at bedtime and is compliant at baseline GERD -Continue omeprazole PAF -Continue beta-uche -Hold apixaban for now for potential urological intervention within the next 24 hours Hyperglycemia -Patient has not a diabetic at baseline -We will check hemoglobin A1c as blood sugar on BMP for admission was 192 -Start SSI and Accu-Cheks Depression -Continue Lexapro Morbid obesity -Recommend weight loss -BMI is 45.8 -Complicates overall treatment, prognosis, and outcomes DVT prophylaxis -Hold apixaban -Start heparin 3 times daily tomorrow CODE STATUS -Full code Charges/Coding Visit Charges Inpatient E&M: 09600 Init Hosp L3
[2021-05-15 16:16] LABS: Hemoglobin A1c 5.6 % (3.8-5.6)
--- NOTE | 2021-05-15 17:03 | EKG12_ITS ---
Test Reason : PRE-OP Blood Pressure : / mmHG Vent. Rate : 061 BPM Atrial Rate : 061 BPM P-R Int : 178 ms QRS Dur : 136 ms QT Int : 446 ms P-R-T Axes : 059 -43 087 degrees QTc Int : 448 ms Normal sinus rhythm Left axis deviation Non-specific intra-ventricular conduction block Abnormal ECG When compared with ECG of 06-MAR-2021 01:21, No significant change was found Confirmed by GILMAR MCDONNELL, MAIN ([id number]), design editor ANIBAL TIM ([id number]) on 05/16/2021 2:02:05 PM Referred By: Yulissa Rendon Confirmed By:MAIN SCHAFER MD
--- NOTE | 2021-05-15 17:26 | PCM.CONS.GEN ---
Assessment & Plan Assessment/Plan (1) Right ureteral calculus: (2) Urinary tract infection: (3) Hematuria: (4) Hydronephrosis: PLAN: continue supportive care per primary service to OR for cystoscopy and right ureteral stent insertion informed consent obtained HPI Consult Data Date of Consult: 05/15/21 HPI Narrative HPI Narrative: RUBEN COSTELLO, is a 71 F who presents with acute onset right sided abdominal and flank pain that started 2 days ago. She felt like she was passing a stone and stayed home from taoism. She then developed gross hematuria. No nausea or vomiting. She presented today with uncontrolled pain. She is now experiencing difficulty with moving and increasing shortness of breath. [facility] Medical History (Updated 05/15/21 @ 17:[address] Yulissa Rendon MD) Abnormal pulmonary function test Atherosclerosis of coronary 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 Atherosclerotic heart disease of [place] coronary artery without angina pectoris Chronic diastolic (congestive) heart failure COPD (chronic obstructive pulmonary disease) Depression Erythematous bladder mucosa Essential hypertension Hemorrhoids Hydronephrosis Hyperlipidemia Kidney stone Left renal stone Microcalcification of right breast on mammogram Morbid obesity Nonspecific abnormal unspecified cardiovascular function study Obesity TATIANA (obstructive sleep apnea) TATIANA (obstructive sleep apnea) Paroxysmal A-fib Paroxysmal atrial fibrillation Stage 3b chronic kidney disease (CKD) Home Medications aspirin 81 mg PO DAILY 08/02/13 [History Last Taken 05/15/21] omeprazole 20 mg capsule,delayed release 20 mg PO QHS 06/22/19 [History Last Taken 05/14/21] cholecalciferol (vitamin D3) 1 cap PO SA 07/10/19 [History Last Taken 05/12/21] hydrochlorothiazide 25 mg tablet 25 mg PO DAILY 08/09/19 [History Last Taken 05/15/21] potassium chloride 10 mEq tablet,extended release 20 meq PO DAILY tab 09/27/19 [History Last Taken 05/15/21] metoprolol tartrate 25 mg tablet 12.5 mg PO BID #30 tab 08/17/20 [Rx Last Taken 05/15/21] ramipril 2.5 mg capsule 2.5 mg PO DAILY #90 cap 10/23/20 [Rx Last Taken 05/15/21] simvastatin 40 mg tablet 40 mg PO QHS #90 tab 12/05/20 [Rx Last Taken 05/14/21] apixaban 5 mg tablet 5 mg PO BID #180 tab 03/08/21 [Rx Last Taken 05/15/21] acetaminophen 1,000 mg PO Q6H PRN 05/15/21 [History Last Taken 05/15/21 06:00] escitalopram oxalate 20 mg PO DAILY 05/15/21 [History Last Taken 05/15/21] Allergy/AdvReac Type Severity Reaction Status Date / Time No Known Allergies Allergy Verified 05/15/21 11:33 Family History Father Colon cancer Mother Cancer lung Surgical History History of lithotripsy Hx of CABG Postsurgical aortocoronary bypass status Postsurgical percutaneous transluminal coronary angioplasty (PTCA) status S/P coronary artery stent placement (~05/28/16) Social History household members: none housing: apartment pets and animals: Yes pets and animals: dog(s) Smoking Status: Never smoker alcohol intake: never substance use type: does not use ROS Constitutional Constitutional: Reports weakness; Denies chills or fever(s) Eyes Eyes: Denies change in vision ENT HEENT: Denies dysphagia, headache(s) or loss taste/smell Cardiovascular Cardiovascular: Reports abdominal pain, dyspnea and fatigue; Denies chest pain Respiratory/Chest Respiratory/Chest: Reports dyspnea on exertion; Denies chest tightness or cough Gastrointestinal Gastrointestinal: Reports abdominal pain; Denies taste impaired Genitourinary Genitourinary: Reports abdominal discomfort, flank pain and hematuria Musculoskeletal Musculoskeletal: Reports difficulty walking Integumentary Integumentary: Reports systems reviewed and no addt'l complaints, except as documented Neurologic Neurologic: Denies abnormal speech, behavior changes or confusion Psychiatric Psychiatric: Reports systems reviewed and no addt'l complaints, except as documented Endocrine Endocrinology: Reports systems reviewed and no addt'l complaints, except as documented Hematologic/Lymphatic Hematologic/Lymphatic: Reports systems reviewed and no addt'l complaints, except as documented Allergic/Immunologic Allergic/Immunologic: Reports systems reviewed and no addt'l complaints, except as documented Physical Exam Const alert, oriented x3 and no apparent distress General Appearance: cooperative HEENT normocephalic, head/scalp atraumatic, external ears normal and external nose normal Eyes General Eye: normal appearance of both eyes Neck supple General: trachea midline Lymph Lymphatic: no lymphedema noted Chest inspection of chest normal Resp normal respiratory effort, normal air movement and no retractions Cardio regular rate external exam normal Extremity normal to inspection Skin no rashes or lesions noted, no wounds, skin turgor normal, no jaundice, no petechiae and no mottling Neuro oriented x3, CN's II-XII intact bilaterally and moves all extremities Psych mental status grossly normal, thought process normal, cooperative and affect normal Lab / Micro Data Result Diagrams: 05/15/21 12:33 05/15/21 12:33 Labs: Laboratory Results - last 24 hr 05/15/21 12:33: WBC 28.8 H, RBC 3.50 L, Hgb 10.9 L, Hct 33.5 L, MCV 95.7, MCH 31.1, MCHC 32.5, RDW Std Deviation 46.7 H, RDW Coeff of Abelardo 13.3, Plt Count 182, MPV 10.5, Neut % (Auto) Not Reportable, Absolute Neuts (auto) 24.2 H, Absolute Lymphs (auto) 1.70, Total Counted 100, Neutrophils % (Manual) 81 H, Band Neutrophils % 3, Lymphocytes % (Manual) 6 L, Monocytes % (Manual) 7, Metamyelocytes % 3 H, Diff Path Review September, Platelet Estimate ADEQUATE, RBC Morphology NORM C+C 05/15/21 12:33: PT 27.2 H, INR 2.6 05/15/21 12:33: Sodium 138, Potassium 3.8, Chloride 108 H, Carbon Dioxide 19.0 L, Anion Gap 11, BUN 58 H, Creatinine 2.47 H, Estim Creat Clear Calc 16.28, Est GFR (MDRD) Af Amer 25 L, Est GFR (MDRD) Non-Af 20 L, BUN/Creatinine Ratio 23.5 H, Glucose 192 H, Calcium 8.8, Total Bilirubin 0.40, AST 31, ALT 35, Alkaline Phosphatase 86, Total Protein 6.6, Albumin 2.3 L, Globulin 4.3 H, Albumin/Globulin Ratio 0.5 L, Lipase 90 05/15/21 12:33: Hemoglobin A1c 5.6 05/15/21 12:50: Urine Color Red, Urine Clarity Turbid, Urine pH 6.5, Ur Specific [place] 1.015, Urine Protein 500 H, Urine Glucose (UA) Normal, Urine Ketones Negative, Urine Occult Blood 250 H, Urine Nitrite Negative, Urine Bilirubin Negative, Urine Urobilinogen Normal, Ur Leukocyte Esterase 500 H, Urine RBC > 100 SEEN, Urine WBC 25-50 SEEN, Ur Squamous Epith Cells 0-5 SEEN, Urine Bacteria 1+, Urine Mucus 0 SEEN Micro: Microbiology 05/15/21 15:52 Nasal Secretion SARS-CoV-2 Antigen (Rapid) - Final
--- NOTE | 2021-05-15 17:32 | OP.PCM_ITS ---
Problems Associated Problem List Diagnoses (1) Hydronephrosis: (2) Hematuria: (3) Right ureteral calculus: (4) Urinary tract infection: Report of Operation Date of Procedure: 05/15/21 Pre-Operative Diagnosis: Right ureteral calculus, right hydronephrosis, urinary tract infection, hematuria Post-Operative Diagnosis: Same Surgery/Procedure Performed:: Cystoscopy insertion of right ureteral stent Surgeon: Yulissa Rendon Type of Anesthesia: MAC Description of Procedure: The patient is a 71-year-old female with a history of stones who presented with an acute right-sided urinary obstruction with a white blood cell count of 28. Her creatinine is elevated. She presents for cystoscopy and right ureteral stent insertion. Informed consent was obtained. The patient was taken to the operating room and placed on the operating room table. Anesthesia monitored the head, neck, airway, IV access and vital signs throughout the case. Once anesthesia was appropriately ministered the patient was placed into dorsal lithotomy position was prepped and draped in usual sterile fashion. The cystoscope was then inserted through the urethra under direct visualization into the urinary bladder. The bladder mucosa was visualized in its entirety. The right ureteral orifice was identified and intubated with a 0.035 Glidewire. A 6 [place] 24 cm JJ stent was inserted over the wire with good curling in the renal pelvis as well as the urinary bladder. A Mota catheter was then inserted and the bladder was drained. Patient was then awakened and taken to the recovery room in good condition. Grafts/Implants Used: [id number] JJ stent Complications none Admit VTE Documentation VTE Present on Admission: Yes VTE Mechan Device Prophylaxis: SCD's VTE Pharm Prophylaxis ordered?: Yes
--- NOTE | 2021-05-15 20:02 | PCS.PANDOC ---
PANDEMIC DOCUMENTATION INITIATED: Date: 01/15/2021 Time: 190
[2021-05-15] MEDS: 0.9% Normal Saline 1,000 ML 75 ML IV (20:28)
[2021-05-15 20:35] LABS: Bedside Glucose 86 mg/dL (70-110)
[2021-05-15] MEDS: Acetaminophen 500 MG Tablet 1000 MG PO (20:38)
[2021-05-15] MEDS: Atorvastatin Calcium 20 MG Tablet PO (20:38)
[2021-05-15] MEDS: Metoprolol Tartrate 25 MG Tablet 12.5 MG PO (20:39)
[2021-05-15] MEDS: Pantoprazole Sodium 20 MG Tablet PO (20:39)
[2021-05-15 22:31] LABS: Lactic Acid 1.3 mmol/L (0.4-1.9)
[2021-05-16] VITALS (14 sets, daily range): BP systolic 104–163; BP diastolic 48–78; PULSE 58–73; RESP 18–20; TEMP 36.4–36.7; O2SAT 92–99
--- NOTE | 2021-05-16 00:49 | NURSING ---
Pt complained of pain and then went back to sleep. Soft snore. No pain meds given at this time.
[2021-05-16] MEDS: Acetaminophen 500 MG Tablet 1000 MG PO ×2 (05:36→11:53)
[2021-05-16 06:14] LABS: Hematocrit 31.6 % (37-47); Hemoglobin 10.3 g/dL (12.0-15.0); Mean Corp Hgb Conc 32.6 g/dL (32-36); Mean Corpuscular Hgb 30.9 pg (27.0-32.0); Mean Corpuscular Volume 94.9 fL (81-99); Mean Platelet Vol. 10.3 fl (6.2-12.0); POSITIVE COUNT YES; POSITIVE MORPHOLOGY YES; Platelet Count 169 K/mm3 (150-450); RBC Distribution Width CV 13.3 % (11.6-14.6); RBC Distribution Width SD 46.5 fl (35.1-43.9); Red Blood Count 3.33 M/mm3 (4.2-5.4); White Blood Count 21.3 K/mm3 (4.4-11.0)
[2021-05-16 06:15] LABS: Differential Indicated MANUAL DIFF
[2021-05-16 06:33] LABS: Absolute Neutrophil Count 17.9 X10^3/uL (2.0-7.7)
[2021-05-16 06:34] LABS: Absolute Lymphocyte Count 1.91 X10^3/uL (0.83-4.51); Eosinophil 1 % (0-5); Lymphocyte 9 % (19-41); Metamyelocyte 1 % (0-1); Monocyte 5 % (0-10); Neutrophil-Band 14 % (0-5); Neutrophil-Segmented 70 % (47-70); Platelet Estimate ADEQUATE (ADEQ); Red Cell Morphology NORM C+C NORMAL (NORM C&C); Total Cells Counted 100 (MANUAL DIFF)
[2021-05-16 06:50] LABS: Anion Gap 10 (5-15); BUN 60 mg/dL (7-18); BUN/Creat Ratio 25.3 RATIO (10-20); Calcium,Total 8.5 mg/dL (8.5-10.1); Chloride 109 mmol/L (98-107); Creatinine, Serum 2.37 mg/dL (0.55-1.02); EST Glomerular Filtration Rate 21 mL/min (>60); Est Glom Filt Rate - Afr Amer 26 mL/min (>60); Estimated Creatinine Clearance 16.97 ml/min; Glucose 116 mg/dL (74-106); Magnesium 1.5 mg/dL (1.6-2.6); Phosphorus 3.6 mg/dL (2.5-4.9); Potassium 3.6 mmol/L (3.5-5.1); Sodium Level 138 mmol/L (136-145)
--- NOTE | 2021-05-16 07:18 | PCM.PN.HOSP ---
Objective Data Objective Data Vital Signs: Vital Signs Temp Pulse Resp BP Pulse Ox 97.6 F L 70 20 H 163/78 H 95 05/16/21 05:23 05/16/21 05:23 05/16/21 05:23 05/16/21 05:23 05/16/21 05:23 Oxygen Flow Rate (L/min) 2 Oxygen Delivery Method Room Air Weight: 255 lb 4.725 oz Body Mass Index (BMI) 46.7 Intake & Output: Intake and Output for Last 24 Hours 05/14/21 05/15/21 05/16/21 23:59 23:59 23:59 Intake Total 1050 / 1050 Output Total 650 / 650 Balance 1050 / 400 -650 / -650 Lab / Micro Data Result Diagrams: 05/16/21 05:55 05/16/21 05:55 Labs: Laboratory Results - last 24 hr 05/15/21 12:33: WBC 28.8 H, RBC 3.50 L, Hgb 10.9 L, Hct 33.5 L, MCV 95.7, MCH 31.1, MCHC 32.5, RDW Std Deviation 46.7 H, RDW Coeff of Abelardo 13.3, Plt Count 182, MPV 10.5, Neut % (Auto) Not Reportable, Absolute Neuts (auto) 24.2 H, Absolute Lymphs (auto) 1.70, Total Counted 100, Neutrophils % (Manual) 81 H, Band Neutrophils % 3, Lymphocytes % (Manual) 6 L, Monocytes % (Manual) 7, Metamyelocytes % 3 H, Diff Path Review September, Platelet Estimate ADEQUATE, RBC Morphology NORM C+C 05/15/21 12:33: PT 27.2 H, INR 2.6 05/15/21 12:33: Sodium 138, Potassium 3.8, Chloride 108 H, Carbon Dioxide 19.0 L, Anion Gap 11, BUN 58 H, Creatinine 2.47 H, Estim Creat Clear Calc 16.28, Est GFR (MDRD) Af Amer 25 L, Est GFR (MDRD) Non-Af 20 L, BUN/Creatinine Ratio 23.5 H, Glucose 192 H, Calcium 8.8, Total Bilirubin 0.40, AST 31, ALT 35, Alkaline Phosphatase 86, Total Protein 6.6, Albumin 2.3 L, Globulin 4.3 H, Albumin/Globulin Ratio 0.5 L, Lipase 90 05/15/21 12:33: Hemoglobin A1c 5.6 05/15/21 12:50: Urine Color Red, Urine Clarity Turbid, Urine pH 6.5, Ur Specific [place] 1.015, Urine Protein 500 H, Urine Glucose (UA) Normal, Urine Ketones Negative, Urine Occult Blood 250 H, Urine Nitrite Negative, Urine Bilirubin Negative, Urine Urobilinogen Normal, Ur Leukocyte Esterase 500 H, Urine RBC > 100 SEEN, Urine WBC 25-50 SEEN, Ur Squamous Epith Cells 0-5 SEEN, Urine Bacteria 1+, Urine Mucus 0 SEEN 05/15/21 20:25: POC Glucose 86 05/15/21 21:26: Lactic Acid 1.3 05/16/21 05:55: WBC 21.3 H, RBC 3.33 L, Hgb 10.3 L, Hct 31.6 L, MCV 94.9, MCH 30.9, MCHC 32.6, RDW Std Deviation 46.5 H, RDW Coeff of Abelardo 13.3, Plt Count 169, MPV 10.3, Neut % (Auto) Not Reportable, Absolute Neuts (auto) 17.9 H, Absolute Lymphs (auto) 1.91, Total Counted 100, Neutrophils % (Manual) 70, Band Neutrophils % 14 H, Lymphocytes % (Manual) 9 L, Monocytes % (Manual) 5, Eosinophils % (Manual) 1, Metamyelocytes % 1, Diff Path Review September, Platelet Estimate ADEQUATE, RBC Morphology NORM C+C 05/16/21 05:55: Sodium 138, Potassium 3.6, Chloride 109 H, Carbon Dioxide 19.0 L, Anion Gap 10, BUN 60 H, Creatinine 2.37 H, Estim Creat Clear Calc 16.97, Est GFR (MDRD) Af Amer 26 L, Est GFR (MDRD) Non-Af 21 L, BUN/Creatinine Ratio 25.3 H, Glucose 116 H, Calcium 8.5, Phosphorus 3.6, Magnesium 1.5 L Micro: Microbiology 05/15/21 15:52 Nasal Secretion SARS-CoV-2 Antigen (Rapid) - Final Radiography Diagnostic Testing: Radiology Impression Abdomen/Pelvis CT 05/15/21 12:19 IMPRESSION: Bilateral nonobstructive intrarenal calculi. 2.5 mm catheter is in the midportion of the right kidney with right hydronephrosis in the right perinephric stranding. Electronically Signed: Huseyin Morton MD at 13:29 EST , Service support , Assessment & Plan Assessment/Plan (1) Right ureteral calculus: (2) Urinary tract infection: (3) Leukocytosis: (4) LINDA (acute kidney injury): (5) Hyperglycemia: (6) Metabolic acidosis: (7) Hematuria: PLAN: Bilateral nephrolithiasis with complicated UTI -Urine and blood cultures are pending -Start ceftriaxone -Previous cultures have yielded Klebsiella which is sensitive to ceftriaxone -We will need extended course of treatment given the fact that this is complicated -Hold Eliquis for potential intervention with regards to nephrolithiasis -Antiemetics -As needed Dilaudid for pain -Patient to be n.p.o. after midnight -Consult Dr. Rendon--> she is aware as the ED did discuss the case with her LINDA on CKD stage III -Normal saline at 75 cc/h -Avoid nephrotoxins -Suspect prerenal -If no improvement tomorrow would work-up further with urine lytes and potential ultrasound to calculate FeNa -Hold ramipril and HCTZ Hematuria -Likely related to nephrolithiasis and full anticoagulation with DOAC -DOAC on hold -Follow CBC -Patient with mild acute anemia on admission Acute anemia -Patient with hematuria -Current hemoglobin is 10.9 -Baseline hemoglobin appears to fluctuate -Continue to monitor -Last measured hemoglobin was 12.3 on 03/06/2021 Leukocytosis -Work-up as above -Repeat CBC in a.m. -Suspect related to acute infection Metabolic acidosis -Hypochloremia with a serum bicarb of 19 -Anion gap is 11 -Anticipate related to acute kidney injury on CKD Hypertension -Hold ramipril and HCTZ given acute kidney injury -Continue metoprolol -As needed hydralazine for systolic blood pressure greater than 160 Hyperlipidemia -Continue simvastatin TATIANA -Patient wears CPAP at 14 at at bedtime and is compliant at baseline GERD -Continue omeprazole PAF -Continue beta-uche -Hold apixaban for now for potential urological intervention within the next 24 hours Hyperglycemia -Patient has not a diabetic at baseline -We will check hemoglobin A1c as blood sugar on [facility] for admission was 192 -Start SSI and Accu-Cheks Depression -Continue Lexapro Morbid obesity -Recommend weight loss -BMI is 45.8 -Complicates overall treatment, prognosis, and outcomes DVT prophylaxis -Hold apixaban -Start heparin 3 times daily tomorrow CODE STATUS -Full code
[2021-05-16] MEDS: 0.9% Normal Saline 1,000 ML 75 ML IV (10:19)
[2021-05-16] MEDS: Metoprolol Tartrate 25 MG Tablet 12.5 MG PO ×2 (10:20→21:50)
[2021-05-16] MEDS: Escitalopram Oxalate 20 MG Tablet PO (10:20)
[2021-05-16] MEDS: Aspirin E.C. 81 MG Tablet PO (10:21)
[2021-05-16] MEDS: Ceftriaxone 1 GM/50 ML BAG IV (10:57)
--- NOTE | 2021-05-16 11:30 | PN.HOSP_ITS ---
Documented by User: Andrew KU 05/16/21 11:48 Subjective Subjective Patient is a 71-year-old female lying in bed eating breakfast, alert and orient x3. Patient reports significant improvement in her back pain from admission. Denies development of any new symptoms overnight. Does not appear in acute distress. Objective Data Objective Data Vital Signs: Vital Signs Temp Pulse Resp BP Pulse Ox 97.7 F L 67 18 132/66 H 97 05/16/21 08:04 05/16/21 10:20 05/16/21 08:04 05/16/21 08:04 05/16/21 09:15 Oxygen Flow Rate (L/min) 2 Oxygen Delivery Method Room Air Weight: 255 lb 4.725 oz Body Mass Index (BMI) 46.7 Intake & Output: Intake and Output for Last 24 Hours 05/14/21 05/15/21 05/16/21 23:59 23:59 23:59 Intake Total 1050 / 1050 2000 / 2000 Output Total 1000 / 1000 Balance 1050 / 400 1000 / 1000 Lab / Micro Data Result Diagrams: 05/16/21 05:55 05/16/21 05:55 Labs: Laboratory Results - last 24 hr 05/15/21 12:33: WBC 28.8 H, RBC 3.50 L, Hgb 10.9 L, Hct 33.5 L, MCV 95.7, MCH 31.1, MCHC 32.5, RDW Std Deviation 46.7 H, RDW Coeff of Abelardo 13.3, Plt Count 182, MPV 10.5, Neut % (Auto) Not Reportable, Absolute Neuts (auto) 24.2 H, Absolute L ymphs (auto) 1.70, Total Counted 100, Neutrophils % (Manual) 81 H, Band Neutr ophils % 3, Lymphocytes % (Manual) 6 L, Monocytes % (Manual) 7, Metamyelocytes % 3 H, Diff Path Review May foll, Platelet Estimate ADEQUATE, RBC Morphology NORM C+C 05/15/21 12:33: PT 27.2 H, INR 2.6 05/15/21 12:33: Sodium 138, Potassium 3.8, Chloride 108 H, Carbon Dioxide 19.0 L , Anion Gap 11, BUN 58 H, Creatinine 2.47 H, Estim Creat Clear Calc 16.28, Est GFR (MDRD) Af Amer 25 L, Est GFR (MDRD) Non-Af 20 L, BUN/Creatinine Ratio 23.5 H , Glucose 192 H, Calcium 8.8, Total Bilirubin 0.40, AST 31, ALT 35, Alkaline Phosphatase 86, Total Protein 6.6, Albumin 2.3 L, Globulin 4.3 H, Albumin/Globulin Ratio 0.5 L, Lipase 90 05/15/21 12:33: Hemoglobin A1c 5.6 05/15/21 12:50: Urine Color Red, Urine Clarity Turbid, Urine pH 6.5, Ur Specific [place] 1.015, Urine Protein 500 H, Urine Glucose (UA) Normal, Urine Ketones Negative, Urine Occult Blood 250 H, Urine Nitrite Negative, Urine Bilirubin Negative, Urine Urobilinogen Normal, Ur Leukocyte Esterase 500 H, Urine RBC > 100 SEEN, Urine WBC 25-50 SEEN, Ur Squamous Epith Cells 0-5 SEEN, Urine Bacteria 1+, Urine Mucus 0 SEEN 05/15/21 20:25: POC Glucose 86 05/15/21 21:26: Lactic Acid 1.3 05/16/21 05:55: WBC 21.3 H, RBC 3.33 L, Hgb 10.3 L, Hct 31.6 L, MCV 94.9, MCH 30.9, MCHC 32.6, RDW Std Deviation 46.5 H, RDW Coeff of Abelardo 13.3, Plt Count 169, MPV 10.3, Neut % (Auto) Not Reportable, Absolute Neuts (auto) 17.9 H, Absolute Lymphs (auto) 1.91, Total Counted 100, Neutrophils % (Manual) 70, Band Neutrophils % 14 H, Lymphocytes % (Manual) 9 L, Monocytes % (Manual) 5, Eosinophils % (Manual) 1, Metamyelocytes % 1, Diff Path Review September, Platelet Estimate ADEQUATE, RBC Morphology NORM C+C 05/16/21 05:55: Sodium 138, Potassium 3.6, Chloride 109 H, Carbon Dioxide 19.0 L , Anion Gap 10, BUN 60 H, Creatinine 2.37 H, Estim Creat Clear Calc 16.97, Est GFR (MDRD) Af Amer 26 L, Est GFR (MDRD) Non-Af 21 L, BUN/Creatinine Ratio 25.3 H , Glucose 116 H, Calcium 8.5, Phosphorus 3.6, Magnesium 1.5 L Micro: Microbiology 05/15/21 16:00 Blood Culture (Wb) - Anticubital Right Blood Culture - Preliminary 05/15/21 15:45 Blood Culture (Wb) - Anticubital Left Blood Culture - Preliminary 05/15/21 15:52 Nasal Secretion SARS-CoV-2 Antigen (Rapid) - Final Radiography Diagnostic Testing: Radiology Impression Abdomen/Pelvis CT 05/15/21 12:19 IMPRESSION: Bilateral nonobstructive intrarenal calculi. 2.5 mm catheter is in the midportion of the right kidney with right hydronephrosis in the right perinephric stranding. Electronically Signed: Huseyin Morton MD at 13:29 EST , Service support , Physical Exam Const alert, oriented x3 and no apparent distress HEENT head/scalp atraumatic and moist oral mucous membranes Head and Scalp: normocephalic Eyes PERRL, EOMs intact bilaterally and conjunctivae normal Neck no lymphadenopathy, supple and no JVD Resp normal respiratory effort, no retractions, no use of accessory muscles and clear to auscultation bilaterally Cardio regular rate, regular rhythm, no murmurs and no JVD GI normal to inspection, nondistended, normoactive bowel sounds, soft to palpation and non-tender Extremity normal to inspection, full ROM and no clubbing, cyanosis or edema Skin no rashes or lesions noted, no wounds and skin turgor normal Neuro CN's II-XII intact bilaterally Psych affect normal Assessment & Plan Assessment/Plan (1) Right ureteral calculus: (2) Urinary tract infection: (3) LINDA (acute kidney injury): (4) Hyperglycemia: (5) Metabolic acidosis: (6) Hematuria: PLAN: Day 1 Discharge planning: To be determined. 1) bilateral nephrolithiasis with complicated UTI Patient did undergo stenting of the right ureter, per Dr. Rendon. Overall patient reports that flank pain is much improved and denies development of any new symptoms overnight. Vital signs stable and patient is afebrile. CBC still with leukocytosis at 21,000, although this has improved from admission. Urine and blood culture still pending. Urine culture from 2018 grew Klebsiella pneumoniae. Plan; continue Rocephin for 10-day course, continue as needed medications, urology consulted. 2) LINDA on CKD stage IIIb Creatinine currently 2.37, baseline appears around 1.5, improved from admission. Continue IV fluids, avoid nephrotoxins (hold ramipril and hydrochlorothiazide). Continue to monitor. 3) acute on chronic anemia with hematuria Hemoglobin currently 10.3, baseline appears between 10 and 11. Likely secondary to #1 and chronic anticoagulation on Eliquis. Continue to monitor. 4) metabolic acidosis Likely related to #2. Hyperchloremia at 109 with an anion gap of 10. Plan as above. 5) HTN Continue metoprolol, hold ramipril and hydrochlorothiazide due to #2. As needed hydralazine ordered. 6) hyperlipidemia Continue statin. 7) TATIANA Continue CPAP. 8) GERD Continue PPI. 9) paroxysmal atrial fibrillation Continue beta-uche, hold Eliquis due to #1. 10) hyperglycemia Resolved, not diabetic at baseline. Hemoglobin A1c 5.6. Continue Accu-Cheks with SSI. 10) depression Continue Lexapro. DVT prophylaxis - SCDs, chemoprophylaxis held due to #1. Patient seen by Andrew Vital PA-C, under the supervision of Dr. Ernandez. Documented by User: Dr. Wade Ernandez MD 05/16/21 15:31 Subjective Subjective Patient has history of kidney stone but never required urology procedure either lithotripsy, stent placement or cystoscopy. She had a spontaneously passed a stone in ureter in the past. This time admitted with right ureteric colic pain due to tight ureteric stone complicated with hydronephrosis and UTI Objective Data Lab / Micro Data Result Diagrams: 05/16/21 05:55 05/16/21 05:55 Physical Exam Narrative General: Alert, Oriented x3, Cooperative HEENT: Atraumatic, PERRLA, EOMI, Normocephalic Oral: No Gingival or Mucosal Lesions/ Ulcerations Neck: Supple, No JVD, Negative Carotid Bruits Lungs: Air entry diminished in bilateral lung bases. No crepitation/rhonchi Cardiovascular: Regular rate, Regular Rhythm, Normal S1, Normal S2, No murmurs Abdomen: Bowel Sounds Present, Soft, Non Tender, Non-Distended. No palpable mass : Hematuria. Dark-colored urine/hematuria in Mota catheter. no renal angle tenderness. No suprapubic tenderness. Extremities: No edema. Skin: No rashes, No breakdown Musculoskeletal: No Tenderness to Palpation of Joints or Extremities Neurological: Cranial nerves II-XII grossly intact, DTR 2+/4 and Symmetrical, Neuro grossly intact Psych/Mental Status: Normal Affect, Appropriate. Assessment & Plan Assessment/Plan (1) Right ureteral calculus: (2) Urinary tract infection: PLAN: This patient was seen in conjunction with ELMIRA Alejandro. I have independently interviewed and examined the patient and reviewed pertinent history, examination findings, laboratory and plan of management. I have reviewed the note and agree with the documented findings with the few additional points. In brief, patient is admitted for right ureteric colic pain secondary to ureteric stone 2.5 mm complicated with right hydronephrosis, hematuria and UTI. Patient is on IV ceftriaxone. Urine culture ordered. Preliminary blood culture shows gram variable bacilli. Her previous urine culture on 10/19/2017 shows Klebsiella pneumoniae sensitive to ceftriaxone therefore continue ceftriaxone. Patient had cystoscopy with retrograde stent placement by urologist. Acute kidney injury on CKD stage IIIb probably from ureteric stone and UTI: IV fluid changed to half-normal saline because of hyperchloremia. Patient has history of paroxysmal A. fib and atherosclerotic heart disease, CAD status post stent. She also has COPD and obstructive sleep apnea. Plan of care and management discussed with the patient's daughter. I have discussed my assessment with ELMIRA Aeljandro and orders have been reviewed. Charges/Coding Visit Charges Inpatient E&M: 61317 Subs Hosp L2
[2021-05-16 12:00] LABS: Bedside Glucose 133 mg/dL (70-110)
--- NOTE | 2021-05-16 12:23 | CASEMGMT ---
KATIE HARTLEY Assessment: Face to Face with pt for initial transition planning/care coordination assessment. KATIE HARTLEY introduced self and role at [facility], pt voices understanding and consents to assessment. Pt is A/O x4 and answers all questions appropriately at this time. Pt sitting up in chair in no distress. Care providers, pharmacy, and demographics verified/updated. Admitting Dx: acute complicated UTI and nephrolithiasis PCP:Martinez Specialists:Deanna cardio; Justice uro [facility] Pres[facility] Benefit: yes LW/HPOA: Pt has LW/DPOA on file at [facility]. Pt DPOA is her dtr Kiara Jenkins. LNOK: Kiara Jenkins, dtr; Linn Burnham, rocael Living Arrangements: Pt lives alone in a ground level apt with no steps to enter. Pt reports she is I in ADL's and denies concerns at home. Transportation: Pt does not have a car but does have a drivers license. She borrows her brother's car who lives in the same apt area or he transports her to medical appts. Pt denies concerns with transportation. DME/HHC/SNF: Pt has a shower chair and rollator at home. Pt currently does not use the rollator. Pt denies previous HHC or SNF stays. Pt states no concerns with going home at time of dc. Pt states she does feel weak but does not feel that she will need therapy at home. Per hospitalist, pt to dc on oral antibiotics. Pt states no further concerns/needs. CM to follow. Advised pt to ask CM if any further question/concerns/needs arise, voices understanding. Pt Goal: Home Plan: Home
[2021-05-16 13:59] LABS: Pathologist Review Reviewed
[2021-05-16 14:20] LABS: Pathologist Review Reviewed
--- NOTE | 2021-05-16 14:52 | CPS ---
started by nursing
[2021-05-16] MEDS: 0.45% Normal Saline 1,000 ML 75 ML IV (16:17)
--- NOTE | 2021-05-16 17:45 | PN_ITS ---
Subjective Subjective Patient is sitting up in bed. She feels achy but her back pain is significantly improved. Objective Data Objective Data Vital Signs: Vital Signs Temp Pulse Resp BP Pulse Ox 97.7 F L 60 18 141/66 H 99 05/16/21 16:15 05/16/21 16:15 05/16/21 16:15 05/16/21 16:15 05/16/21 16:15 Oxygen Flow Rate (L/min) 2 Oxygen Delivery Method Room Air Weight: 115.8 kg Body Mass Index (BMI) 46.7 Intake & Output: Intake and Output for Last 24 Hours 05/14/21 05/15/21 05/16/21 23:59 23:59 23:59 Intake Total 1050 / 1050 3300 / 3300 Output Total 1500 / 1500 Balance 1050 / 400 1800 / 1800 Lab / Micro Data Result Diagrams: 05/16/21 05:55 05/16/21 05:55 Labs: Laboratory Results - last 24 hr 05/15/21 12:33: Diff Path Review Reviewed 05/15/21 20:25: POC Glucose 86 05/15/21 21:26: Lactic Acid 1.3 05/16/21 05:55: WBC 21.3 H, RBC 3.33 L, Hgb 10.3 L, Hct 31.6 L, MCV 94.9, MCH 30.9, MCHC 32.6, RDW Std Deviation 46.5 H, RDW Coeff of Abelardo 13.3, Plt Count 169, MPV 10.3, Neut % (Auto) Not Reportable, Absolute Neuts (auto) 17.9 H, Absolute Lymphs (auto) 1.91, Total Counted 100, Neutrophils % (Manual) 70, Band Neutrophils % 14 H, Lymphocytes % (Manual) 9 L, Monocytes % (Manual) 5, Eosinophils % (Manual) 1, Metamyelocytes % 1, Diff Path Review Reviewed, Platelet Estimate ADEQUATE, RBC Morphology NORM C+C 05/16/21 05:55: Sodium 138, Potassium 3.6, Chloride 109 H, Carbon Dioxide 19.0 L , Anion Gap 10, BUN 60 H, Creatinine 2.37 H, Estim Creat Clear Calc 16.97, Est GFR (MDRD) Af Amer 26 L, Est GFR (MDRD) Non-Af 21 L, BUN/Creatinine Ratio 25.3 H , Glucose 116 H, Calcium 8.5, Phosphorus 3.6, Magnesium 1.5 L 05/16/21 11:56: POC Glucose 133 H Micro: Microbiology 05/15/21 16:00 Blood Culture (Wb) - Anticubital Right Blood Culture - Preliminary 05/15/21 15:45 Blood Culture (Wb) - Anticubital Left Blood Culture - Preliminary 05/15/21 15:52 Nasal Secretion SARS-CoV-2 Antigen (Rapid) - Final Radiography Diagnostic Testing: Radiology Impression Abdomen/Pelvis CT 05/15/21 12:19 IMPRESSION: Bilateral nonobstructive intrarenal calculi. 2.5 mm catheter is in the midportion of the right kidney with right hydronephrosis in the right perinephric stranding. Electronically Signed: Huseyin Morton MD at 13:29 EST , Service support , Physical Exam Const alert, oriented x3 and no apparent distress GI soft to palpation Narrative: Mota draining yellow with a small blood clot Assessment & Plan Assessment/Plan (1) Right ureteral calculus: (2) Urinary tract infection: (3) Hydronephrosis: (4) LINDA (acute kidney injury): (5) Leukocytosis: PLAN: Continue supportive care and antibiotics Await culture results, follow labs Okay to remove Mota when no longer medically necessary plan for surgical intervention on right stone in few weeks as outpatient procedure
[2021-05-16 17:46] LABS: Bedside Glucose 108 mg/dL (70-110)
[2021-05-16] MEDS: oxyCODONE 5 MG Tablet PO (18:29)
[2021-05-16] MEDS: Pantoprazole Sodium 20 MG Tablet PO (21:50)
[2021-05-16] MEDS: Heparin Injection (Vial) 5,000 UNIT/ML VIAL 5000 UNIT SC (21:50)
[2021-05-16] MEDS: Atorvastatin Calcium 20 MG Tablet PO (21:50)
[2021-05-16 22:06] LABS: Bedside Glucose 151 mg/dL (70-110)
[2021-05-17 00:08] VITALS: PULSE 70; O2SAT 94
[2021-05-17 04:15] VITALS: BP 161/59; PULSE 73; RESP 18; TEMP 37.1; O2SAT 93
[2021-05-17 05:04] LABS: Absolute Lymphocyte Count 1.62 X10^3/uL (0.83-4.51); Absolute Neutrophil Count 12.5 X10^3/uL (2.0-7.7); Basophil# 0.03 X10^3/uL; Basophil% 0.2 % (0-1); Eosinophil# 0.15 X10^3/uL; Eosinophils% 0.9 % (0-5); Hematocrit 29.5 % (37-47); Hemoglobin 10.1 g/dL (12.0-15.0); Lymphocyte # 1.62 X10^3/ul (0.83-4.51); Lymphocyte % 10.2 % (19-41); Mean Corp Hgb Conc 34.2 g/dL (32-36); Mean Corpuscular Hgb 31.5 pg (27.0-32.0); Mean Corpuscular Volume 91.9 fL (81-99); Mean Platelet Vol. 10.7 fl (6.2-12.0); Monocyte# 1.35 X10^3/uL; Monocyte% 8.5 % (0-10); NRBC Flagged by Analyzer 0 % (0-5); Neutrophil # 12.52 X10^3/uL (2.7-7.7); Neutrophil % 78.8 % (47-70); Platelet Count 180 K/mm3 (150-450); RBC Distribution Width CV 13.4 % (11.6-14.6); RBC Distribution Width SD 45.6 fl (35.1-43.9); Red Blood Count 3.21 M/mm3 (4.2-5.4); White Blood Count 15.9 K/mm3 (4.4-11.0)
[2021-05-17 05:30] LABS: Anion Gap 10 (5-15); BUN 55 mg/dL (7-18); BUN/Creat Ratio 29.7 RATIO (10-20); Calcium,Total 8.5 mg/dL (8.5-10.1); Chloride 107 mmol/L (98-107); Creatinine, Serum 1.85 mg/dL (0.55-1.02); EST Glomerular Filtration Rate 29 mL/min (>60); Est Glom Filt Rate - Afr Amer 34 mL/min (>60); Estimated Creatinine Clearance 21.74 ml/min; Glucose 138 mg/dL (74-106); Sodium Level 136 mmol/L (136-145)
[2021-05-17] MEDS: Heparin Injection (Vial) 5,000 UNIT/ML VIAL 5000 UNIT SC (06:44)
[2021-05-17] MEDS: Aspirin E.C. 81 MG Tablet PO (07:35)
[2021-05-17 08:33] VITALS: BP 153/70; PULSE 68; RESP 18; TEMP 36.9; O2SAT 98
[2021-05-17] MEDS: Acetaminophen 500 MG Tablet 1000 MG PO (09:15)
[2021-05-17] MEDS: Ceftriaxone 1 GM/50 ML BAG IV (09:15)
[2021-05-17 09:16] VITALS: PULSE 68
[2021-05-17] MEDS: Escitalopram Oxalate 20 MG Tablet PO (09:16)
[2021-05-17] MEDS: Metoprolol Tartrate 25 MG Tablet 12.5 MG PO (09:16)
--- NOTE | 2021-05-17 10:31 | PCM.DC ---
Discharge Instructions Diet Discharge Diet: Low fat / Low cholesterol and 1800 Calorie Control Diet Activity Discharge Activity: Return to Normal Activity Dressing / Incision Call your doctor if you observe: Fever of 101 or Higher and Inability to urinate Follow Up Care Test Results: Test results from this visit will be discussed in further detail at your follow-up appointment, if applicable. Discharge Plan Admission Admit Date/Time: 05/15/21 15:26 Primary Reason for Your Visit: UTI, Kidney stone Attending Provider: Wade Ernandez Primary Care Provider: Evangelist Henriquez Consulting Providers: Yulissa Rendon Discharge Orders/Prescriptions Prescriptions: New cefdinir 300 mg capsule 300 mg PO Q12H 8 Days Qty: 16 RF: 0 Continued omeprazole 20 mg capsule,delayed release(DR/EC) 20 mg PO QHS RF: 0 potassium chloride 10 mEq tablet extended release 20 meq PO DAILY RF: 0 Eliquis 5 mg tablet 5 mg PO BID Qty: 180 RF: 3 aspirin 81 MG tablet 81 mg PO DAILY RF: 0 cholecalciferol (vitamin D3) 1,250 MCG capsule 1 cap PO SA RF: 0 acetaminophen 500 mg Tablet 1,000 mg PO Q6H PRN (Reason: Pain) RF: 0 escitalopram oxalate 20 mg tablet 20 mg PO DAILY RF: 0 hydrochlorothiazide 25 mg tablet 25 mg PO DAILY RF: 0 metoprolol tartrate 25 mg tablet 12.5 mg PO BID Qty: 30 RF: 12 ramipril 2.5 mg capsule 2.5 mg PO DAILY Qty: 90 RF: 3 simvastatin 40 mg tablet 40 mg PO QHS Qty: 90 RF: 4 Referrals / Follow Up: Yulissa Rendon MD [STAFF PHYSICIAN] - Within 2 Weeks Evangelist Henriquez DO [Primary Care Provider] - Within 2 Weeks Disposition Disposition (needs filled in before D/C Order can be placed): Home, Self Care
--- NOTE | 2021-05-17 10:40 | PCM.DC.SUM ---
Documented by User: TREVOR Wilks 05/17/21 10:46 Providers Date of Admission: 05/15/21 Primary Care Physician: Dr. Evangelist Henriquez DO Consultations 05/15/21 19:40 Consult: Urology Routine Consulting Provider: Yulissa Rendon Reason for Consult: Complicated UTI with nephrolitiasis EMERGENT Consult: No MD Notified: Yes Date Notified: 05/15/21 Time Notified: 15:31 Method of Notification: Verbal Reason For Visit: ACUTE COMPLICATED UTI AND NEPHROLITIASIS Diagnosis Discharge Diagnosis (1) Right ureteral calculus: Status: Acute Code(s): N20.1 - Calculus of ureter (2) Urinary tract infection: Status: Acute Code(s): N39.0 - Urinary tract infection, site not specified (3) Hydronephrosis: Status: Acute Code(s): N13.30 - Unspecified hydronephrosis (4) LINDA (acute kidney injury): Status: Acute Code(s): N17.9 - Acute kidney failure, unspecified (5) Leukocytosis: Status: Acute Code(s): D72.829 - Elevated white blood cell count, unspecified Medications at Discharge Home Medications aspirin 81 mg PO DAILY 08/02/13 omeprazole 20 mg capsule,delayed release 20 mg PO QHS 06/22/19 cholecalciferol (vitamin D3) 1 cap PO SA 07/10/19 hydrochlorothiazide 25 mg tablet 25 mg PO DAILY 08/09/19 metoprolol tartrate 25 mg tablet 12.5 mg PO BID #30 tab 08/17/20 ramipril 2.5 mg capsule 2.5 mg PO DAILY #90 cap 10/23/20 simvastatin 40 mg tablet 40 mg PO QHS #90 tab 12/05/20 apixaban 5 mg tablet 5 mg PO BID #180 tab 03/08/21 acetaminophen 1,000 mg PO Q6H PRN 05/15/21 escitalopram oxalate 20 mg PO DAILY 05/15/21 cefdinir 300 mg PO Q12H 8 Days #16 cap 05/17/21 potassium chloride 10 meq PO DAILY #0 tab 05/17/21 Hospital Course Operations None Summary of Care Provided Minutes Spent on Discharge: 25 Hospital Course: Patient is a 71-year-old female who was admitted with complaints of right flank pain and abdominal pain x3 days. Patient underwent cystoscopy with Dr. Rendon who placed a right ureteral stent. Patient received 2 days worth of ceftriaxone while inpatient and will be discharged home on Omnicef. Patient will be discharged home with instructions to follow-up with Dr. Rendon in 1 to 2 weeks. Physical Exam Const alert, oriented x3 and no apparent distress General Appearance: cooperative HEENT normocephalic and head/scalp atraumatic Eyes conjunctivae normal and no scleral icterus Neck supple General: trachea midline Resp normal respiratory effort, normal air movement and clear to auscultation bilaterally Cardio regular rate, regular rhythm, S1 normal heart sound and S2 normal heart sound GI normal to inspection, nondistended, normoactive bowel sounds, soft to palpation and non-tender Extremity normal capillary refill and no clubbing, cyanosis or edema General Extremity: no tenderness to palpation of joints or extremities Skin skin turgor normal General Skin Exam: no breakdown Lesions: no lesions Rashes: no rashes Neuro no focal motor deficits and no sensory deficits noted Motor Exam: Negative for general weakness Psych affect normal Appearance: appropriate Weight / BMI Weight Weight: 255 lb 4.725 oz Body Mass Index (BMI) 46.7 ABG / Lab / Microbiology Data Result Diagrams: 05/17/21 04:44 05/17/21 04:44 Laboratory: Laboratory Results - last 24 hr 05/15/21 12:33: Diff Path Review Reviewed 05/16/21 05:55: Diff Path Review Reviewed 05/16/21 11:56: POC Glucose 133 H 05/16/21 17:39: POC Glucose 108 05/16/21 21:47: POC Glucose 151 H 05/17/21 04:44: WBC 15.9 H, RBC 3.21 L, Hgb 10.1 L, Hct 29.5 L, MCV 91.9, MCH 31.5, MCHC 34.2, RDW Std Deviation 45.6 H, RDW Coeff of Abelardo 13.4, Plt Count 180, MPV 10.7, Immature Gran % (Auto) 1.400 H, Neut % (Auto) 78.8 H, Lymph % (Auto) 10.2 L, [place] % (Auto) 8.5, Eos % (Auto) 0.9, Baso % (Auto) 0.2, Absolute Neuts (auto) 12.5 H, Absolute Lymphs (auto) 1.62, Nucleated RBC % 0 05/17/21 04:44: Sodium 136, Potassium 3.0 L, Chloride 107, Carbon Dioxide 19.0 L, Anion Gap 10, BUN 55 H, Creatinine 1.85 H, Estim Creat Clear Calc 21.74, Est GFR (MDRD) Af Amer 34 L, Est GFR (MDRD) Non-Af 29 L, BUN/Creatinine Ratio 29.7 H, Glucose 138 H, Calcium 8.5 Microbiology: Microbiology 05/15/21 15:45 Blood Culture (Wb) - Anticubital Left Blood Culture - Preliminary GNR lactose publicity writer 05/15/21 16:00 Blood Culture (Wb) - Anticubital Right Blood Culture - Preliminary GNR lactose publicity writer 05/15/21 15:52 Nasal Secretion SARS-CoV-2 Antigen (Rapid) - Final D/C Instructions Discharge Diet: Low fat / Low cholesterol and 1800 Calorie Control Diet Call your doctor if you observe: Fever of 101 or Higher and Inability to urinate Meaningful Use Info Meaningful Use Diagnoses (Choose all that apply): None applicable Discharge Plan Admission Admit Date/Time: 05/15/21 15:26 Primary Reason for Your Visit: UTI, Kidney stone Attending Provider: Wade Ernandez Primary Care Provider: Evangelist Henriquez Consulting Providers: Yulissa Rendon Discharge Orders/Prescriptions Prescriptions: New cefdinir 300 mg capsule 300 mg PO Q12H 8 Days Qty: 16 RF: 0 Continued omeprazole 20 mg capsule,delayed release(DR/EC) 20 mg PO QHS RF: 0 Eliquis 5 mg tablet 5 mg PO BID Qty: 180 RF: 3 aspirin 81 MG tablet 81 mg PO DAILY RF: 0 cholecalciferol (vitamin D3) 1,250 MCG capsule 1 cap PO SA RF: 0 acetaminophen 500 mg Tablet 1,000 mg PO Q6H PRN (Reason: Pain) RF: 0 escitalopram oxalate 20 mg tablet 20 mg PO DAILY RF: 0 metoprolol tartrate 25 mg tablet 12.5 mg PO BID Qty: 30 RF: 12 simvastatin 40 mg tablet 40 mg PO QHS Qty: 90 RF: 4 Changed potassium chloride 10 mEq tablet extended release 10 meq PO DAILY Qty: 0 RF: 0 Held hydrochlorothiazide 25 mg tablet 25 mg PO DAILY RF: 0 Hold Instructions: Hold for 1 week ramipril 2.5 mg capsule 2.5 mg PO DAILY Qty: 90 RF: 3 Hold Instructions: Hold for 1 week Referrals / Follow Up: Yulissa Rendon MD [STAFF PHYSICIAN] - Within 2 Weeks (Appointment: May @ 10:00AM) Evangelist Henriquez DO [Primary Care Provider] - Within 2 Weeks (Appointment : June @ 03:35PM) Disposition Disposition (needs filled in before D/C Order can be placed): Detention Facility Documented by User: Dr. Wade Ernandez MD 05/17/21 14:41 Providers Date of Admission: 05/15/21 Reason For Visit: ACUTE COMPLICATED UTI AND NEPHROLITIASIS Medications at Discharge Home Medications aspirin 81 mg PO DAILY 08/02/13 omeprazole 20 mg capsule,delayed release 20 mg PO QHS 06/22/19 cholecalciferol (vitamin D3) 1 cap PO SA 07/10/19 hydrochlorothiazide 25 mg tablet 25 mg PO DAILY 08/09/19 metoprolol tartrate 25 mg tablet 12.5 mg PO BID #30 tab 08/17/20 ramipril 2.5 mg capsule 2.5 mg PO DAILY #90 cap 10/23/20 simvastatin 40 mg tablet 40 mg PO QHS #90 tab 12/05/20 apixaban 5 mg tablet 5 mg PO BID #180 tab 03/08/21 acetaminophen 1,000 mg PO Q6H PRN 05/15/21 escitalopram oxalate 20 mg PO DAILY 05/15/21 cefdinir 300 mg PO Q12H 8 Days #16 cap 05/17/21 potassium chloride 10 meq PO DAILY #0 tab 05/17/21 Hospital Course Summary of Care Provided Hospital Course: This patient was seen in conjunction with RILEY Cifuentes. I have independently interviewed and examined the patient and reviewed pertinent history, examination findings, laboratory and plan of management. I have reviewed the note and agree with the documented findings with the few additional points. In brief, patient is admitted for right ureteric colic pain secondary to ureteric stone 2.5 mm complicated with right hydronephrosis, hematuria and UTI. Patient was a started on IV ceftriaxone. Urine culture shows gram-negative rods more than 1000 colonies. Preliminary blood culture shows gram variable bacilli. Her previous urine culture on 10/19/2017 shows Klebsiella pneumoniae pansensitive. Patient had cystoscopy with retrograde stent placement by urologist. Patient is discharged on cefdinir for 8 more days. Acute kidney injury on CKD stage IIIb probably from ureteric stone and UTI: Treated with IV fluid. Patient creatinine improved from 2.47-1.87. Advised to avoid any nephrotoxic medications including HCTZ, ramipril. She has mild hypokalemia. Continue potassium supplement with repeat BMP advised 1 week in consultation with PCP. Patient has history of paroxysmal A. fib and atherosclerotic heart disease, CAD status post stent. She also has COPD and obstructive sleep apnea. Plan of care and management discussed with the patient's daughter. I have discussed my assessment with RILEY Cifuentes and orders have been reviewed. Discharge medication reconciliation done. Discharge follow-up instructions completed. Discharge process discussed with the patient and all questions were answered to patient's satisfaction. Discharge meds discussed with the patient's daughter. Total time spent, exact 35 minutes on discharge meds reconciliation, examination, coordination of care with nurses and ancillary staff, review of imaging and blood test and discussion with the patient on follow-up instructions Physical Exam Narrative Seen and examined. Mota catheter shows clear urine. Mota catheter discontinued. Hematuria resolved. General: Alert, Oriented x3, Cooperative HEENT: Atraumatic, PERRLA, EOMI, Normocephalic Oral: No Gingival or Mucosal Lesions/ Ulcerations Neck: Supple, No JVD, Negative Carotid Bruits Lungs: Air entry diminished in bilateral lung bases. No crepitation/rhonchi Cardiovascular: Regular rate, Regular Rhythm, Normal S1, Normal S2, No murmurs Abdomen: Bowel Sounds Present, Soft, Non Tender, Non-Distended. No palpable mass : Clear urine in Mota catheter. no renal angle tenderness. No suprapubic tenderness. Extremities: No edema. Skin: No rashes, No breakdown Musculoskeletal: No Tenderness to Palpation of Joints or Extremities Neurological: Cranial nerves II-XII grossly intact, DTR 2+/4 and Symmetrical, Neuro grossly intact Psych/Mental Status: Normal Affect, Appropriate. ABG / Lab / Microbiology Data Result Diagrams: 05/17/21 04:44 05/17/21 04:44 Discharge Plan Admission Admit Date/Time: 05/15/21 15:26 Primary Reason for Your Visit: UTI, Kidney stone Attending Provider: Wade Ernandez Primary Care Provider: Evangelist Henriquez Consulting Providers: Yulissa Rendon Discharge Orders/Prescriptions Prescriptions: New cefdinir 300 mg capsule 300 mg PO Q12H 8 Days Qty: 16 RF: 0 Continued omeprazole 20 mg capsule,delayed release(DR/EC) 20 mg PO QHS RF: 0 Eliquis 5 mg tablet 5 mg PO BID Qty: 180 RF: 3 aspirin 81 MG tablet 81 mg PO DAILY RF: 0 cholecalciferol (vitamin D3) 1,250 MCG capsule 1 cap PO SA RF: 0 acetaminophen 500 mg Tablet 1,000 mg PO Q6H PRN (Reason: Pain) RF: 0 escitalopram oxalate 20 mg tablet 20 mg PO DAILY RF: 0 metoprolol tartrate 25 mg tablet 12.5 mg PO BID Qty: 30 RF: 12 simvastatin 40 mg tablet 40 mg PO QHS Qty: 90 RF: 4 Changed potassium chloride 10 mEq tablet extended release 10 meq PO DAILY Qty: 0 RF: 0 Held hydrochlorothiazide 25 mg tablet 25 mg PO DAILY RF: 0 Hold Instructions: Hold for 1 week ramipril 2.5 mg capsule 2.5 mg PO DAILY Qty: 90 RF: 3 Hold Instructions: Hold for 1 week Referrals / Follow Up: Yulissa Rendon MD [STAFF PHYSICIAN] - Within 2 Weeks (Appointment: May @ 10:00AM) Evangelist Henriquez DO [Primary Care Provider] - Within 2 Weeks (Appointment : June @ 03:35PM) Disposition Disposition (needs filled in before D/C Order can be placed): Detention Facility Charges/Coding Visit Charges Inpatient E&M: 41642 Disch Hosp
[2021-05-17 11:45] LABS: Bedside Glucose 119 mg/dL (70-110)
[2021-05-17 13:03] VITALS: O2SAT 98
[2021-05-17 13:52] VITALS: BP 144/70; PULSE 68; RESP 18; TEMP 36.8; O2SAT 98
== END 2021-05-17 14:07 | disposition home or self-care (01) | DRG 660 ==
LOC: ED 15:30 → MS3 16:10
PROVIDERS: Physician Assistant; Admitting Provider Internal Medicine; Emergency Provider Emergency Medicine; PCP Student in an Organized Health Care Education/Training Program; Referring Provider Urology; Visit Provider Internal Medicine
PROC: 0T768DZ Dilation of Right Ureter with Intraluminal Device, Via Natural or Artificial Opening Endoscopic (ICD-10-PCS; principal; 2021-05-15 16:40)
DX: N13.6 Pyonephrosis (principal); I50.32 Chronic diastolic (congestive) heart failure; I13.0 Hypertensive heart and chronic kidney disease with heart failure and stage 1 through stage 4 chronic kidney disease, or unspecified chronic kidney disease; Z68.42 Body mass index [BMI] 45.0-49.9, adult; E87.2 Acidosis; N18.32 Chronic kidney disease, stage 3b; J44.9 Chronic obstructive pulmonary disease, unspecified; F32.A Depression, unspecified; E78.5 Hyperlipidemia, unspecified; E66.01 Morbid (severe) obesity due to excess calories; G47.33 Obstructive sleep apnea (adult) (pediatric); I25.10 Atherosclerotic heart disease of native coronary artery without angina pectoris; N17.9 Acute kidney failure, unspecified; I48.0 Paroxysmal atrial fibrillation; R73.9 Hyperglycemia, unspecified; K21.9 Gastro-esophageal reflux disease without esophagitis; B96.89 Other specified bacterial agents as the cause of diseases classified elsewhere; E87.6 Hypokalemia; D64.9 Anemia, unspecified; Z79.899 Other long term (current) drug therapy; Z79.01 Long term (current) use of anticoagulants; Z79.82 Long term (current) use of aspirin
CPT/HCPCS: 36415; 74176; 76000; 80048; 80053; 81001; 82962; 83036; 83605; 83690; 83735; 84100; 85025; 85610; 87040; 87077; 87086; 87088; 87186; 87426; 93005; 97161; 99251; 99284; J7030; J7120; A4216; C2617; G0463

== ENCOUNTER 2021-06-22 09:50 | Day surgery (SDC) | payer MEDICARE, OTHER, SELFPAY ==
[2021-06-22 10:20] VITALS: BP 154/69; PULSE 64; RESP 16; TEMP 36.4; O2SAT 98; BMI 42.6
[2021-06-22] MEDS: Lactated Ringers 1,000 ML 15 ML IV (10:27)
[2021-06-22 10:44] LABS: Hematocrit 35.7 % (37-47); Hemoglobin 12.1 g/dL (12.0-15.0); Mean Corp Hgb Conc 33.9 g/dL (32-36); Mean Corpuscular Hgb 31.2 pg (27.0-32.0); Mean Platelet Vol. 9.9 fl (6.2-12.0); Platelet Count 244 K/mm3 (150-450); RBC Distribution Width SD 46.8 fl (35.1-43.9); Red Blood Count 3.88 M/mm3 (4.2-5.4); White Blood Count 8.7 K/mm3 (4.4-11.0)
[2021-06-22 11:01] LABS: Anion Gap 6 (5-15); BUN 35 mg/dL (7-18); BUN/Creat Ratio 17.9 RATIO (10-20); Calcium,Total 9.9 mg/dL (8.5-10.1); Chloride 112 mmol/L (98-107); Creatinine, Serum 1.95 mg/dL (0.55-1.02); EST Glomerular Filtration Rate 27 mL/min (>60); Est Glom Filt Rate - Afr Amer 32 mL/min (>60); Estimated Creatinine Clearance 20.63 ml/min; Glucose 126 mg/dL (74-106); Potassium 4.6 mmol/L (3.5-5.1); Sodium Level 137 mmol/L (136-145)
--- NOTE | 2021-06-22 11:11 | PCM.OPRPT ---
Problems Associated Problem List Diagnoses (1) Right ureteral calculus: Report of Operation Date of Procedure: 06/22/21 Pre-Operative Diagnosis: Right ureteral calculus Post-Operative Diagnosis: Right renal calculus, passed ureteral calculus Surgery/Procedure Performed:: Cystoscopy, retrograde pyelogram, right ureteroscopy, holmium laser lithotripsy, stone basket extraction and right ureteral stent change Surgeon: Yulissa Rendon Type of Anesthesia: General Specimen's removed: Stone fragments Description of Procedure: The patient is a 71-year-old female previously underwent a right ureteral stent insertion for an obstructing stone with sepsis. She now presents for definitive management of her stones. Informed consent was obtained. The patient was taken to the operating room and placed on the operating room table. Anesthesia monitored the head, neck, airway, IV access and vital signs throughout the case. Once anesthesia was appropriate ministered, the patient was placed into dorsolithotomy position was prepped and draped in usual sterile fashion. At this time the cystoscope was inserted through the urethra under direct visualization into the urinary bladder. The right ureteral stent was observed. A 0.035 Glidewire was inserted alongside the stent into the renal pelvis and clamped to the drapes. The grasping forceps were used to remove the ureteral stent to the meatus where a second wire was inserted and secured. The stent was discarded. The flexible ureteroscope was inserted over a Glidewire into the renal pelvis without difficulty. 1 large calculus was identified and lasered into 2 small fragments and a significant amount of dust. At this time the ureteroscopy revealed no evidence of remaining stones. A stone basket was then used to remove the 2 fragments from the renal pelvis. A retrograde pyelogram was performed with contrast injected through the ureteroscope into the ureter. No remaining foreign objects were identified. The cystoscope was then used to insert a new 6 Bulgarian 24 cm JJ stent with good positioning in the renal pelvis as well as the urinary bladder. The patient's bladder was then emptied and the case was terminated. The patient tolerated the procedure well without complication. Grafts/Implants Used: 6 x 24 JJ stent Complications None Admit VTE Documentation VTE Present on Admission: Yes VTE Mechan Device Prophylaxis: SCD's VTE Pharm Prophylaxis ordered?: Yes
--- NOTE | 2021-06-22 11:12 | PCM.DC ---
Discharge Instructions Diet Discharge Diet: No restrictions Activity Discharge Activity: Return to Normal Activity Dressing / Incision Call your doctor if you observe: Fever of 101 or Higher, Inability to urinate, Inability to have a bowel movement and Uncontrolled pain Follow Up Care Please Follow Up With: Yulissa Rendon MD When: Next week in the office for ureteral stent removal Test Results: Test results from this visit will be discussed in further detail at your follow-up appointment, if applicable. Discharge Plan Admission Attending Provider: Yulissa Rendon Primary Care Provider: Evangelist Henriquez Discharge Orders/Prescriptions Prescriptions: New oxycodone-acetaminophen [oxycodone-acetaminophen] 1 TABLET tablet 2 tab PO Q8H PRN PRN (Reason: Pain) 7 Days Qty: 20 RF: 0 ondansetron HCl [ondansetron HCl] 8 MG tablet 8 mg PO Q8H PRN PRN (Reason: Nausea) 7 Days Qty: 20 RF: 0 phenazopyridine [Pyridium] 200 MG tablet 200 mg PO TID PRN PRN (Reason: Bladder Spasms) 7 Days Qty: 30 RF: 0 Continued omeprazole 20 mg capsule,delayed release(DR/EC) 20 mg PO QHS RF: 0 Eliquis 5 mg tablet 5 mg PO BID Qty: 180 RF: 3 aspirin 81 MG tablet 81 mg PO DAILY RF: 0 cholecalciferol (vitamin D3) 1,250 MCG capsule 1 cap PO SA RF: 0 acetaminophen 500 mg Tablet 1,000 mg PO Q6H PRN (Reason: Pain) RF: 0 escitalopram oxalate 20 mg tablet 20 mg PO DAILY RF: 0 potassium chloride 10 mEq tablet extended release 10 meq PO DAILY Qty: 0 RF: 0 hydrochlorothiazide 25 mg tablet 25 mg PO DAILY RF: 0 Hold Instructions: Hold for 1 week metoprolol tartrate 25 mg tablet 12.5 mg PO BID Qty: 30 RF: 12 ramipril 2.5 mg capsule 2.5 mg PO DAILY Qty: 90 RF: 3 Hold Instructions: Hold for 1 week simvastatin 40 mg tablet 40 mg PO QHS Qty: 90 RF: 4 Referrals / Follow Up: Evangelist Henriquez DO [Primary Care Provider] - Disposition Disposition (needs filled in before D/C Order can be placed): Home, Self Care
[2021-06-22] MEDS: Cefazolin 2 GM in 0.9% Normal Saline 100 ML IV (11:20)
--- NOTE | 2021-06-22 11:25 | CALC_PTH ---
PATIENT: RUBEN COSTELLO [place] [facility] [id number] AGE/SX: 71/F ROOM: RE06/22/[address]: Dr. Yulissa Rendon MD : 1950 BED: DIS: 06/22/2021 SPEC #: [id number] RECD: 06/22/21 13:09 STATUS: CECY CARRINGTONEmanuel #: [id number] AURELIA: 06/22/21 11:[address]: Yulissa Rendon DEPT: SURGICAL PATHOLOGY RECD BY: Pratima Stock ENTERED: 06/25/21 09:39 SP TYPE: Calculi OTHR DR: Dr. Evangelist Henriquez DO Tissues: CALCULI Procedures: Surgery Specimen Level I HEADER OPERATION: Cystoscopy, right ureteroscopy, laser of stone, stone basket PRE-OP DIAGNOSIS: Calculus of kidney and ureter, urinary tract infection TISSUE SUBMITTED: Right renal calculi GROSS DIAGNOSIS Renal calculus, removal: Unremarkable calculus (gross diagnosis only). AM:gray 06/26/2021 COMMENT The calculus is submitted in its entirety for chemical stone analysis. The results from this study will be reported separately. GROSS DESCRIPTION Received without fixative labeled with the patient's name and designated calculus of kidney. The specimen consists of a single black calculus measuring 0.5 x 0.2 x 0.1 cm. The entire specimen is submitted for stone analysis. / AM:gray 06/25/2021 CPT: 91492
[2021-06-22] MEDS: Lubricating Jelly 60 GM Tube 30 GM (11:36)
[2021-06-22 12:20] VITALS: BP 154/69; BP 156/69; PULSE 65; RESP 16; TEMP 36.3; O2SAT 99
[2021-06-22 12:40] VITALS: BP 154/69; BP 158/64; PULSE 64; RESP 16; O2SAT 100
[2021-06-22 12:48] VITALS: BP 151/71; BP 154/69; PULSE 98; RESP 16; TEMP 36.1; O2SAT 97
[2021-06-22 13:26] VITALS: BP 154/69; BP 161/69; PULSE 75; RESP 20; TEMP 36.1; O2SAT 95
== END 2021-06-22 23:59 | disposition home or self-care (01) ==
LOC: SDC 09:54 → AC 09:55
PROVIDERS: PCP Student in an Organized Health Care Education/Training Program; Referring Provider Urology; Visit Provider Urology
PROC: 0TJ98ZZ Inspection of Ureter, Via Natural or Artificial Opening Endoscopic (ICD-10-PCS; CPT 52352; principal; 2021-06-22 11:15)
DX: N20.1 Calculus of ureter (principal); J44.9 Chronic obstructive pulmonary disease, unspecified; I50.32 Chronic diastolic (congestive) heart failure; I13.0 Hypertensive heart and chronic kidney disease with heart failure and stage 1 through stage 4 chronic kidney disease, or unspecified chronic kidney disease; I48.0 Paroxysmal atrial fibrillation; E66.01 Morbid (severe) obesity due to excess calories; Z68.41 Body mass index [BMI] 40.0-44.9, adult; N18.32 Chronic kidney disease, stage 3b; Z86.718 Personal history of other venous thrombosis and embolism; I25.10 Atherosclerotic heart disease of native coronary artery without angina pectoris; E78.5 Hyperlipidemia, unspecified; G47.33 Obstructive sleep apnea (adult) (pediatric); Z95.1 Presence of aortocoronary bypass graft; F32.A Depression, unspecified; M19.90 Unspecified osteoarthritis, unspecified site; Z79.01 Long term (current) use of anticoagulants; Z79.82 Long term (current) use of aspirin; Z79.899 Other long term (current) drug therapy; Z87.442 Personal history of urinary calculi; Z87.440 Personal history of urinary (tract) infections
CPT/HCPCS: 52352; 00873; 52356; 76000; 80048; 82360; 85027; 88300; J7120; C2617; J2405

== ENCOUNTER → 2021-10-03 | Outpatient (CLI) | payer MEDICARE, OTHER, SELFPAY ==
--- NOTE | 2021-10-03 11:51 | RAD_ITS ---
STUDY: X-RAY - ABDOMEN/PELVIS REASON FOR EXAM: Female, 71 years old. KUB LEFT KIDNEY STONE TECHNIQUE: COMPARISON: None. FINDINGS: Normal visualized lung bases. There is an unremarkable bowel gas pattern. There is no demonstrated free abdominal air. There are multiple calcifications. There is vascular calcification at the left upper quadrant. The visualized liver, spleen and kidneys are grossly normal in size and morphology. Normal soft tissue structures. Normal visualized osseous structures. RAD/Abdomen Single View IMPRESSION: Normal x-ray examination of the abdomen and pelvis. Electronically Signed: Rylan Matthew MD at 2:00 EDT ,
== END | disposition home or self-care (01) ==
LOC: MTRAD 11:49
PROVIDERS: PCP Student in an Organized Health Care Education/Training Program; Referring Provider Urology; Visit Provider Urology
DX: N20.0 Calculus of kidney (principal)
CPT/HCPCS: 74018

== ENCOUNTER 2021-11-08 05:56 | Day surgery (SDC) | payer MEDICARE, OTHER, SELFPAY ==
[2021-11-08 06:20] VITALS: BP 140/61; PULSE 64; RESP 18; TEMP 36.3; O2SAT 98; BMI 43.2
[2021-11-08] MEDS: Lactated Ringers 1,000 ML 15 ML IV (06:20)
--- NOTE | 2021-11-08 07:35 | PCM.OPRPT ---
Problems Associated Problem List Diagnoses (1) Left renal stone: Report of Operation Date of Procedure: 11/08/21 Pre-Operative Diagnosis: Left renal calculi Post-Operative Diagnosis: Same Surgery/Procedure Performed:: Left renal extracorporal shockwave lithotripsy Surgeon: Yulissa Rendon Type of Anesthesia: General Specimen's removed: None Description of Procedure: The patient is a 71-year-old female with left renal stones who presents for definitive surgical intervention. Informed consent was obtained. The patient was taken to the operating room and placed on the operating room table. Anesthesia monitored the head, neck, airway, IV access and vital signs throughout the case. Once anesthesia was appropriate ministered to the patient was aligned with a lithotripter. The stones were easily visible. 3000 shocks were applied to the lower pole stones. They appear to be well fragmented at the conclusion of the case. The patient was then awakened and taken the recovery room in good condition. There were no complications during this procedure. Grafts/Implants Used: None Complications None Admit VTE Documentation VTE Present on Admission: Yes VTE Mechan Device Prophylaxis: SCD's VTE Pharm Prophylaxis ordered?: Yes
--- NOTE | 2021-11-08 07:37 | PCM.DC ---
Discharge Instructions Diet Discharge Diet: No restrictions Activity Discharge Activity: Return to Normal Activity May resume sexual activity in: No Restrictions Dressing / Incision Call your doctor if you observe: Fever of 101 or Higher, Inability to urinate and Inability to have a bowel movement Follow Up Care Please Follow Up With: Yulissa Rendon MD When: 2-3 weeks with KUB Test Results: Test results from this visit will be discussed in further detail at your follow-up appointment, if applicable. Discharge Plan Admission Attending Provider: Yulissa Rendon Primary Care Provider: Evangelist Henriquez Discharge Orders/Prescriptions Prescriptions: New oxycodone-acetaminophen [Percocet] 5-325 mg tablet 1 tab PO Q8H PRN (Reason: pain) 3 Days Qty: 10 RF: 0 Continued omeprazole 20 mg capsule,delayed release(DR/EC) 20 mg PO QHS RF: 0 Eliquis 5 mg tablet 5 mg PO BID Qty: 180 RF: 3 potassium chloride 10 mEq tablet extended release 20 meq PO DAILY RF: 0 metoprolol tartrate 25 mg tablet 12.5 mg PO BID Qty: 90 RF: 3 aspirin 81 MG tablet 81 mg PO DAILY RF: 0 cholecalciferol (vitamin D3) 1,250 MCG capsule 1 cap PO SA RF: 0 acetaminophen 500 mg Tablet 1,000 mg PO Q6H PRN (Reason: Pain) RF: 0 escitalopram oxalate [Lexapro] 20 mg tablet 20 mg PO DAILY RF: 0 phenazopyridine [Pyridium] 200 MG tablet 200 mg PO TID PRN PRN (Reason: Bladder Spasms) 7 Days Qty: 30 RF: 0 ramipril [Altace] 2.5 mg capsule 2.5 mg PO DAILY RF: 0 hydrochlorothiazide 25 mg tablet 25 mg PO DAILY RF: 0 Hold Instructions: Hold for 1 week simvastatin 40 mg tablet 40 mg PO QHS Qty: 90 RF: 4 Referrals / Follow Up: Evangelist Henriquez DO [Primary Care Provider] - Disposition Disposition (needs filled in before D/C Order can be placed): Home, Self Care
[2021-11-08 08:25] VITALS: BP 140/61; BP 160/75; PULSE 59; RESP 18; TEMP 36.2; O2SAT 94
[2021-11-08 08:30] VITALS: BP 140/61; BP 159/66; PULSE 60; RESP 16; O2SAT 93
[2021-11-08 08:45] VITALS: BP 140/61; BP 154/67; PULSE 58; RESP 18; O2SAT 93
[2021-11-08 08:50] VITALS: BP 140/61; BP 156/59; PULSE 59; RESP 18; O2SAT 94
[2021-11-08 09:17] VITALS: BP 140/61; BP 160/59; PULSE 60; RESP 16; TEMP 36.2; O2SAT 95
== END 2021-11-08 09:25 | disposition home or self-care (01) ==
LOC: SDC 05:57 → AC 05:58
PROVIDERS: PCP Student in an Organized Health Care Education/Training Program; Referring Provider Urology; Visit Provider Urology
PROC: (CPT 50590; principal; 2021-11-08 07:20)
DX: N20.0 Calculus of kidney (principal); N95.2 Postmenopausal atrophic vaginitis; N39.0 Urinary tract infection, site not specified; N76.0 Acute vaginitis; Z79.01 Long term (current) use of anticoagulants; Z79.82 Long term (current) use of aspirin; Z79.899 Other long term (current) drug therapy; Z95.5 Presence of coronary angioplasty implant and graft
CPT/HCPCS: 50590; 00873; J7120; J2405

== ENCOUNTER → 2021-11-27 | Outpatient (CLI) | payer MEDICARE, OTHER, SELFPAY ==
--- NOTE | 2021-11-27 14:04 | RAD_ITS ---
EXAM: XR ABDOMEN, 1 VIEW CLINICAL INDICATION: KUB TECHNIQUE: Frontal supine view of the abdomen/pelvis. This report was created using [employer] report generation technology. COMPARISON: None. FINDINGS: LOWER THORAX: No acute pathology. GASTROINTESTINAL TRACT: Unremarkable. Non-obstructive. No bowel or stomach distention. ORGANS: Unremarkable as visualized. No organomegaly. No abnormal calcifications. BONES/JOINTS: No acute pathology. SOFT TISSUES: No acute pathology. RAD/Abdomen Single View IMPRESSION: Non-obstructive bowel gas pattern. Electronically Signed: Twin Vega MD at 2:55 EDT ,
== END | disposition home or self-care (01) ==
LOC: MTRAD 14:03
PROVIDERS: PCP Student in an Organized Health Care Education/Training Program; Referring Provider Urology; Visit Provider Urology
DX: N20.0 Calculus of kidney (principal)
CPT/HCPCS: 74018

== ENCOUNTER → 2022-08-05 | Outpatient (CLI) | payer MEDICARE, OTHER, SELFPAY ==
--- NOTE | 2022-08-05 09:53 | STRESSREP_ITS ---
Stress Test Report Date: 08-05-2022 Procedure: Pharmacologic stress nuclear imaging study Indications: CAD, PCI, CABG Consent: Per the patient Procedure: The patient underwent pharmacologic (Regadenoson 0.4mg ) evaluation with a peak heart rate of 73 beats per minute (49%predicted maximal heart rate) and a resting blood pressure of 156/90 mmHg and a peak blood pressure of 156/90 mmHg. The baseline ECG demonstrated an underlying left bundle branch block type pattern. The peak pharmacologic ECG demonstrated no obvious ECG changes. There were no cardiac dysrhythmias pretest, during pharmacologic infusion, or recovery. There was a rare premature ectopic complex in recovery. The examination was discontinued secondary to completion of protocol. Impression: 1. Pharmacologic (Regadenoson) evaluation 2. Peak pharmacologic ECG with with a continued left bundle branch block type pattern with no obvious ECG change. 3. There was a rare premature ectopic complex during recovery. 4. Nuclear images pending Myocardial perfusion imaging study: Technique: The patient was injected with 14.9 millicuries of technetium 99m Cardiolite and subsequently rest SPECT Cardiolite nuclear imaging was obtained in the horizontal long, vertical long, and short axis views. The patient underwent pharmacologic (Regadenoson) evaluation with a peak heart rate of 73 beats per minute (49% percent predicted maximal heart rate) and a resting blood pressure of 156/90 mmHg and a peak blood pressure of 156/9 mmHg. The patient was injected with 44.4 millicuries of technetium 99m Cardiolite and subsequently stress SPECT Cardiolite nuclear imaging was obtained in the horizontal long, vertical long, and short axis views. A gated Cardiolite study at peak stress was obtained. Interpretation: Rest and stress SPECT Cardiolite nuclear imaging status post realignment, normalization, and attenuation correction demonstrate on the preattenuation corrected images the appearance of relative uniform tracer uptake and myocardial perfusion appearing at rest and status post-rest notation of diminished myocardial perfusion/tracer uptake in portions of the mid to distal inferior and inferoapical segments. Status post the attenuation corrected images there is at rest relative uniform tracer uptake and myocardial perfusion appearing within normal limits and status post-rest the appearance of diminished myocardial perfusion/tracer uptake in portions of the inferior apical segments.. There is end systolic thickening and brightening. The gated Cardiolite study demo nstrates myocardial thickening and inward wall motion. The reported LVEF is 70%. Impression: 1. Rest and stress SPECT current nuclear images demonstrate post-rest myocardial perfusion changes concerning for an area of stress-induced myocardial ischemia in portions of the inferior/inferior apical segments. 2. The gated Cardiolite study reports an LVEF of 70%. This note was generated with mysportgroupation software. It may contain incorrect words, spelling, and punctuation that were not noted in checking the note before signing.
== END | disposition home or self-care (01) ==
LOC: CVS 07:28
PROVIDERS: PCP Student in an Organized Health Care Education/Training Program; Referring Provider Physician Assistant Medical; Visit Provider Physician Assistant Medical
DX: I25.10 Atherosclerotic heart disease of native coronary artery without angina pectoris (principal); Z95.1 Presence of aortocoronary bypass graft
CPT/HCPCS: 78452; 93017; A9500; A4216; J2785

== ENCOUNTER 2023-08-07 09:24 | Emergency (ER) | payer MEDICARE, OTHER, SELFPAY ==
[2023-08-07 09:26] VITALS: BP 151/65; PULSE 56; RESP 14; TEMP 36.6; O2SAT 99
[2023-08-07 09:36] VITALS: BMI 41.4
[2023-08-07 10:04] LABS: Absolute Lymphocyte Count 2.47 X10^3/uL (0.83-4.51); Absolute Neutrophil Count 2.7 X10^3/uL (2.0-7.7); Basophil# 0.04 X10^3/uL; Basophil% 0.7 % (0-1); Eosinophil# 0.12 X10^3/uL; Hematocrit 34.3 % (37-47); Hemoglobin 11.1 g/dL (12.0-15.0); Lymphocyte # 2.47 X10^3/ul (0.83-4.51); Lymphocyte % 41.8 % (19-41); Mean Corp Hgb Conc 32.4 g/dL (32-36); Mean Corpuscular Hgb 31.4 pg (27.0-32.0); Mean Corpuscular Volume 97.2 fL (81-99); Mean Platelet Vol. 9.6 fl (6.2-12.0); Monocyte# 0.56 X10^3/uL; Monocyte% 9.5 % (0-10); NRBC Flagged by Analyzer 0 % (0-5); Neutrophil # 2.71 X10^3/uL (2.7-7.7); Neutrophil % 45.8 % (47-70); Platelet Count 191 K/mm3 (150-450); RBC Distribution Width CV 12.7 % (11.6-14.6); RBC Distribution Width SD 45.4 fl (35.1-43.9); Red Blood Count 3.53 M/mm3 (4.2-5.4); White Blood Count 5.9 K/mm3 (4.4-11.0)
[2023-08-07 10:22] LABS: Anion Gap 10 (5-15); BUN 43 mg/dL (7-18); BUN/Creat Ratio 27.4 RATIO (10-20); Calcium,Total 9.2 mg/dL (8.5-10.1); Chloride 110 mmol/L (98-107); Creatinine, Serum 1.57 mg/dL (0.55-1.02); EST Glomerular Filtration Rate 34 mL/min (>60); Est Glom Filt Rate - Afr Amer 41 mL/min (>60); Estimated Creatinine Clearance 36.67 ml/min; Glucose 116 mg/dL (74-106); Potassium 4.9 mmol/L (3.5-5.1); Sodium Level 140 mmol/L (136-145)
--- NOTE | 2023-08-07 11:01 | EKG12_ITS ---
Test Reason : Blood Pressure : / mmHG Vent. Rate : 045 BPM Atrial Rate : 045 BPM P-R Int : 214 ms QRS Dur : 138 ms QT Int : 494 ms P-R-T Axes : 001 -38 079 degrees QTc Int : 427 ms Sinus bradycardia with 1st degree A-V block Left axis deviation Non-specific intra-ventricular conduction block Minimal voltage criteria for LVH, may be normal variant ( Oleg product ) Cannot rule out Septal infarct , age undetermined Abnormal ECG Confirmed by Mike Art ([id number]), video editor DANG GOULD ([id number]) on 08/11/2023 1:54:39 PM Referred By: Confirmed By:Mike Art
--- NOTE | 2023-08-07 11:01 | EX.ED.DYSGE1 ---
HPI History of Present Illness Chief Complaint: Abn Labs Detail of Chief Complaint: Hyperkalemia Informant: patient Onset/Context/Timing Onset: Yesterday Context: Gradual Onset Timing: Continuous Worsened by: Nothing Relieved by: Nothing Narrative Narrative: Patient presents with elevated potassium that was noticed yesterday. Patient states she was at her primary care physician's office yesterday and had lab work drawn. Patient states she was called this morning and told to go straight to the emergency department because her potassium was dangerously high . Patient denies any palpitations. Patient admits to a slight cough and some shortness of breath. Patient states this is chronic for her. Patient denies any chest pain. [facility] Medical History Abnormal pulmonary function test Anxiety Arthritis Asthma Atherosclerosis of coronary 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 Atherosclerotic heart disease of [place] coronary artery without angina pectoris Cardiology follow-up encounter Chronic diastolic (congestive) heart failure COPD (chronic obstructive pulmonary disease) CPAP (continuous positive airway pressure) dependence Depression DVT (deep venous thrombosis) Erythematous bladder mucosa Essential hypertension Gastric reflux GERD (gastroesophageal reflux disease) Hemorrhoids High cholesterol History of atrial fibrillation History of echocardiogram History of edema History of stress test Hydronephrosis Hyperlipidemia Kidney stone Knee pain Left renal stone Left renal stone Microcalcification of right breast on mammogram Morbid obesity Non-smoker Nonspecific abnormal unspecified cardiovascular function study Obesity TATIANA (obstructive sleep apnea) TATIANA (obstructive sleep apnea) Paroxysmal atrial fibrillation Post-menopausal Shortness of breath on exertion Sleep apnea Stage 3b chronic kidney disease (CKD) Wears glasses Home Medications aspirin 81 mg tablet,delayed release 81 mg PO DAILY Anticoaglate 08/02/13 [History Last Taken 10/31/21] omeprazole 20 mg capsule,delayed release 20 mg PO QHS 06/22/19 [History Last Taken 05/14/21] cholecalciferol (vitamin D3) 1,250 mcg (50,000 unit) capsule 1 cap PO SA 07/10/19 [History Last Taken 05/12/21] hydrochlorothiazide 25 mg tablet 25 mg PO DAILY 08/09/19 [History Last Taken 05/15/21] acetaminophen 500 mg tablet 1,000 mg PO Q6H PRN Pain 05/15/21 [History Last Taken 05/15/21 06:00] escitalopram oxalate 20 mg tablet (Lexapro) 20 mg PO DAILY DEPRESSION 05/15/21 [History Last Taken 06/22/21 07:30] phenazopyridine 200 mg tablet (Pyridium) 200 mg PO TID PRN PRN Bladder Spasms 7 days #30 tabs 06/22/21 [Rx Last Taken Unknown] potassium chloride 10 mEq tablet,extended release 20 meq PO DAILY 10/18/21 [History Last Taken Unknown] lorazepam 0.5 mg tablet 0.5 mg PO DAILY PRN 09/02/22 [History Last Taken Unknown] metoprolol tartrate 25 mg tablet 12.5 mg (1/2 x 25 mg) PO BID B/P #90 tabs 10/14/22 [Rx Last Taken Unknown] ramipril 2.5 mg capsule (Altace) 2.5 mg PO DAILY #90 caps 10/14/22 [Rx Last Taken Unknown] apixaban 5 mg tablet (Eliquis) 5 mg PO BID #180 tabs 02/18/23 [Rx Last Taken Unknown] simvastatin 40 mg tablet 40 mg PO QHS Cholesterol #90 tabs 06/03/23 [Rx Last Taken Unknown] Allergy/AdvReac Type Severity Reaction Status Date / Time No Known Allergies Allergy Verified 09/02/22 13:58 Family History Father Colon cancer Mother Cancer lung Surgical History History of cardiac catheterization History of cholecystectomy History of coronary artery stent placement History of cystoscopy History of lithotripsy Hx of CABG Postsurgical aortocoronary bypass status Postsurgical percutaneous transluminal coronary angioplasty (PTCA) status S/P coronary artery stent placement (~05/28/16) Social History household members: none housing: apartment pets and animals: Yes pets and animals: dog(s) Smoking Status: Never smoker alcohol intake: never substance use type: does not use ROS ROS ED Constitutional Constitutional ED: Denies chills or fever(s) Eyes Eyes: Denies blurry vision or change in vision ENT ENT ED: Denies rhinorrhea or sore throat Cardiovascular Cardiovascular: Denies chest pain or palpitations Respiratory/Chest Respiratory/Chest: Reports cough and dyspnea Gastrointestinal Gastrointestinal: Denies nausea or vomiting Genitourinary Genitourinary ED: Denies dysuria or hematuria Musculoskeletal Musculoskeletal: Denies back pain or neck pain Integumentary Denies abscess or rash Neurologic Neurologic: Denies headache(s) or weakness Allergic/Immunologic Allergic/Immunologic ED: Denies mouth swelling or urticaria EXAM Physical Exam Const Vital Signs: 08/07/23 09:26 08/07/23 09:37 Temperature 97.9 F Temperature Source Temporal Pulse Rate 56 L Respiratory Rate 14 Respiratory Effort Normal Non-Labored Respiratory Pattern Normal Blood Pressure 151/65 H Blood Pressure Mean 93 Pulse Ox 99 Oxygen Delivery Method Room Air Positive well nourished, well developed and obese General Appearance ED: well developed and NAD Nutritional Appearance: obese HEENT Reports moist mucous membranes Neck supple and no JVD Resp normal respiratory effort and clear to auscultation bilaterally Cardio regular rate and regular rhythm GI non-tender and non-distended Palpation: soft Neuro oriented x3, CN's II-XII intact bilaterally and no sensory deficits noted Sensorium / Orientation: alert Motor Exam: strength 5/5 throughout Psych mental status grossly normal MDM MDM MDM Narrative Medical decision making narrative: Differential diagnosis includes hyperkalemia, palpitations, acute kidney injury, and laboratory error. EKG will be obtained to assess for cardiac dysrhythmia and cardiac ischemia. CBC will be obtained to assess for leukocytosis and anemia. Basic metabolic profile will be obtained to assess for electrolyte abnormality and renal function. History & Record Review Additional record(s) reviewed:: Prior labs Lab Data Attestation: I reviewed the patient's lab results. Lab results narrative: CBC was reviewed. There is a mild anemia with a hemoglobin of 11.1 and hematocrit 34.3. Basic metabolic profile was reviewed. BUN was 43 and creatinine was 1.57. These are consistent with prior results. Potassium was normal at 4.9. CO2 was slightly low at 20. Anion gap was normal. Labs: Laboratory Results - last 24 hr 08/07/23 09:55 WBC 5.9 RBC 3.53 L Hgb 11.1 L Hct 34.3 L MCV 97.2 MCH 31.4 MCHC 32.4 RDW Std Deviation 45.4 H RDW Coeff of Abelardo 12.7 Plt Count 191 MPV 9.6 Immature Gran % (Auto) 0.200 Neut % (Auto) 45.8 L Lymph % (Auto) 41.8 H [place] % (Auto) 9.5 Eos % (Auto) 2.0 Baso % (Auto) 0.7 Absolute Neuts (auto) 2.7 Absolute Lymphs (auto) 2.47 Nucleated RBC % 0 Sodium 140 Potassium 4.9 Chloride 110 H Carbon Dioxide 20.0 L Anion Gap 10 BUN 43 H Creatinine 1.57 H Estim Creat Clear Calc 36.67 Est GFR (MDRD) Af Amer 41 L Est GFR (MDRD) Non-Af 34 L BUN/Creatinine Ratio 27.4 H Glucose 116 H Calcium 9.2 EKG Initial EKG: Attestation: I personally reviewed and interpreted this EKG as follows: Interpretation: Sinus Bradycardia (With first-degree AV block with a rate of 45) Comments: EKG was obtained. On my independent interpretation, it shows sinus bradycardia with first-degree AV block with a rate of 45. [place] interval was prolonged at 214 ms. QRS interval was slightly prolonged at 138 ms. QTc interval is normal at 427 ms. There is left axis deviation at -38. There are no acute ST or T wave changes noted. There are no hyperacute T waves noted. Prior EKG tracings: available for review Prior: Unchanged (10/18/2021) Treatment and Re-Evaluation :: Patient was advised of her findings. Patient was advised that this was most likely laboratory error. Patient was instructed to continue her medications as previously prescribed. Patient was instructed to follow-up with her primary care physician in 5 to 7 days. Patient understood and was agreeable with the plan. All questions were answered. Discharge Plan Triage Chief Complaint: Abn Labs ED Provider: Amador Almanzar Dx/Rx/DC Orders Clinical Impression: Chronic kidney disease, Essential hypertension Instructions: ED Chronic Kidney Disease (CKD), ED Hyperkalemia Prescriptions: No Action omeprazole 20 mg capsule,delayed release(DR/EC) 20 mg PO QHS potassium chloride 10 mEq tablet extended release 20 meq PO DAILY Rx Instructions: Hold if potassium more than 4.5. lorazepam 0.5 mg tablet 0.5 mg PO DAILY PRN aspirin 81 MG tablet 81 mg PO DAILY cholecalciferol (vitamin D3) 1,250 MCG capsule 1 cap PO SA Patient Comments: TAKE 1 CAPSULE BY MOUTH ONCE A WEEK acetaminophen 500 mg Tablet 1,000 mg PO Q6H PRN (Reason: Pain) escitalopram oxalate [Lexapro] 20 mg tablet 20 mg PO DAILY phenazopyridine [Pyridium] 200 MG tablet 200 mg PO TID PRN PRN (Reason: Bladder Spasms) 7 Days Qty: 30 0RF hydrochlorothiazide 25 mg tablet 25 mg PO DAILY Hold Instructions: Hold for 1 week metoprolol tartrate 25 mg tablet 12.5 mg PO BID Qty: 90 3RF ramipril [Altace] 2.5 mg capsule 2.5 mg PO DAILY Qty: 90 3RF Eliquis 5 mg tablet 5 mg PO BID Qty: 180 3RF Patient Comments: LAST DOSE WILL BE 06/18/20 simvastatin 40 mg tablet 40 mg PO QHS Qty: 90 4RF Primary Care Provider: Evangelist Henriquez Referrals: Evangelist Henriquez DO [Primary Care Provider] - 3-5 Days Disposition Disposition: Home, Self Care
[2023-08-07 11:48] VITALS: BP 158/66; PULSE 45; RESP 18; TEMP 36.7; O2SAT 98
== END 2023-08-07 11:55 | disposition home or self-care (01) ==
PROVIDERS: Emergency Provider Emergency Medicine; PCP Student in an Organized Health Care Education/Training Program; Visit Provider Emergency Medicine
DX: I13.0 Hypertensive heart and chronic kidney disease with heart failure and stage 1 through stage 4 chronic kidney disease, or unspecified chronic kidney disease (principal); J44.9 Chronic obstructive pulmonary disease, unspecified; I50.32 Chronic diastolic (congestive) heart failure; N18.32 Chronic kidney disease, stage 3b; E87.5 Hyperkalemia; G47.33 Obstructive sleep apnea (adult) (pediatric); E66.9 Obesity, unspecified; Z86.718 Personal history of other venous thrombosis and embolism; Z95.5 Presence of coronary angioplasty implant and graft
CPT/HCPCS: 80048; 85025; 93005; 99282

== ENCOUNTER 2023-08-22 07:59 | Inpatient (IN) | payer MEDICARE, OTHER, SELFPAY ==
[2023-08-22 07:59] VITALS: BP 159/47; PULSE 64; RESP 16; TEMP 35.9; O2SAT 100
[2023-08-22 09:14] LABS: Absolute Lymphocyte Count 2.87 X10^3/uL (0.83-4.51); Absolute Neutrophil Count 5.7 X10^3/uL (2.0-7.7); Basophil# 0.04 X10^3/uL; Basophil% 0.4 % (0-1); Eosinophil# 0.14 X10^3/uL; Eosinophils% 1.5 % (0-5); Hematocrit 35.5 % (37-47); Hemoglobin 11.3 g/dL (12.0-15.0); Lymphocyte # 2.87 X10^3/ul (0.83-4.51); Mean Corp Hgb Conc 31.8 g/dL (32-36); Mean Corpuscular Hgb 31.2 pg (27.0-32.0); Mean Corpuscular Volume 98.1 fL (81-99); Mean Platelet Vol. 10.7 fl (6.2-12.0); Monocyte# 0.75 X10^3/uL; Monocyte% 7.8 % (0-10); NRBC Flagged by Analyzer 0 % (0-5); Neutrophil # 5.73 X10^3/uL (2.7-7.7); Neutrophil % 59.9 % (47-70); Platelet Count 227 K/mm3 (150-450); RBC Distribution Width CV 13.2 % (11.6-14.6); RBC Distribution Width SD 47.7 fl (35.1-43.9); Red Blood Count 3.62 M/mm3 (4.2-5.4); White Blood Count 9.6 K/mm3 (4.4-11.0)
--- NOTE | 2023-08-22 09:22 | CT_ITS ---
STUDY: CT ABDOMEN AND PELVIS WITHOUT CONTRAST REASON FOR EXAM: Female, 73 years old. Hematuria RADIATION DOSAGE (If Supplied By Facility): CTDIvol = ( 34.30 ) mGy, DLP = ( 1705.44 ) mGycm TECHNIQUE: Transaxial images were obtained from the dome of the diaphragm to the symphysis pubis without oral contrast, and without intravenous contrast. Sagittal and coronal images were reconstructed. Individualized dose optimization techniques were used for this CT. COMPARISON: Comparison is made with prior study dated May 15, 2021. FINDINGS: The visualized lung bases are unremarkable. Coronary artery calcification. Normal liver. The patient is status post cholecystectomy. Normal spleen. There is diffuse atrophy of the pancreas. There is a small, circumscribed, smooth, low attenuation left adrenal mass, consistent with an adrenal adenoma. This measures 1.2 cm. There has been no change. Normal right adrenal gland. Tiny bilateral nonobstructive intrarenal calculi. There is a 4 mm calculus in the proximal portion of the right ureter causing a mild degree of right-sided hydronephrosis. There is a small hiatal hernia. Normal small intestine. There are multiple colonic diverticula consistent with diverticulosis. The appendix is visualized and appears normal. There is diffuse atherosclerotic calcification of the abdominal aorta and its major visceral branches, without a demonstrated aneurysm. Normal inferior vena cava. Normal retroperitoneum. Normal urinary bladder. Normal abdominal wall. There are diffuse degenerative changes of the visualized lumbar spine. Levoscoliosis. CT/Abdomen/Pelvis without Cont IMPRESSION: 4 mm calculus in the proximal portion of the right ureter causing mild degree of right hydronephrosis. Scattered bilateral nonobstructive intrarenal calculi. Stable 1.2 cm adrenal adenoma in the left adrenal gland. Electronically Signed: Huseyin Morton MD at 10:20 EDT ,
--- NOTE | 2023-08-22 09:22 | CT_ITS ---
STUDY: CT BRAIN WITHOUT CONTRAST REASON FOR EXAM: Female, 73 years old. Confusion RADIATION DOSAGE (If Supplied By Facility): CTDIvol = ( 44.99 ) mGy, DLP = ( 796.11 ) mGycm TECHNIQUE: Transaxial CT imaging of the brain was performed without administration of intravenous contrast material. Individualized dose optimization techniques were used for this CT. COMPARISON: Comparison is made with prior study dated June 10, 2017. FINDINGS: Normal soft tissue structures. There is hyperostosis frontalis internus. There is mild cerebral atrophy with widening of the extra-axial spaces and ventricular dilatation. Normal white matter tracts of the cerebral hemispheres. Normal basal ganglia and thalami. Normal brainstem. Normal cerebellum. There is no intracranial hemorrhage. There are no findings of an acute ischemic infarction. Atherosclerotic calcification of the basilar artery and the cavernous portions of the internal carotid arteries bilaterally. Normal visualized paranasal sinuses. CT/Brain/Head without Contrast IMPRESSION: Chronic involutional changes of the brain. Electronically Signed: Huseyin Morton MD at 10:15 EDT ,
--- NOTE | 2023-08-22 09:22 | CT_ITS ---
STUDY: CT CERVICAL SPINE WITHOUT CONTRAST REASON FOR EXAM: Female, 73 years old. History of fall. RADIATION DOSAGE (If Supplied By Facility): CTDIvol = ( 26.35 ) mGy, DLP = ( 577.37 ) mGycm TECHNIQUE: High resolution transaxial imaging was performed without contrast material. Sagittal and coronal images were reconstructed. Individualized dose optimization techniques were used for this CT. COMPARISON: None FINDINGS: Normal craniovertebral junction. There are degenerative changes of the anterior atlantoaxial articulation. Normal odontoid process. There is straightening of the normal cervical lordosis. Normal vertebral bodies and posterior osseous elements. C2-3: Normal endplates. Normal disc height and morphology. Normal central canal and intervertebral neuroforamina. C3-4: Facet joint osteoarthritis and hypertrophy. C4-5: Facet joint osteoarthritis and hypertrophy. C5-6: Disc space narrowing. No evidence of stenosis. C6-7: Disc space narrowing. No evidence of stenosis. C7-T1: Normal endplates. Normal disc height and morphology. Normal central canal and intervertebral neuroforamina. Atherosclerotic calcification of the carotid bifurcations bilaterally. CT/Spine Cervical without Contras IMPRESSION: Multilevel degenerative changes, as described above. Electronically Signed: Huseyin Morton MD at 10:22 EDT ,
--- NOTE | 2023-08-22 09:24 | EDS_ITS ---
HPI History of Present Illness Chief Complaint: Confusion Narrative Narrative: 73-year-old female with confusion. She is alert awake and does seem oriented. She presents with her daughter who states that she had recent history of UTIs. She is now little confused and she had a couple falls at home where she hit her head but no LOC. Patient is on Eliquis.. She states that she has balance issues. Denies chest pain or shortness of breath. Denies cough. She states vomiting is fevers and chills in the like with UTIs but has not had this. She was on 5-day course of Bactrim which did not cure her symptoms and was then put on a 10-day course of Bactrim and she took her last dose yesterday. She does admit to frequent urination but denies dysuria. 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 Cardiology follow-up encounter Chronic diastolic (congestive) heart failure COPD (chronic obstructive pulmonary disease) CPAP (continuous positive airway pressure) dependence Depression DVT (deep venous thrombosis) Erythematous bladder mucosa Essential hypertension Gastric reflux GERD (gastroesophageal reflux disease) Hemorrhoids High cholesterol History of atrial fibrillation History of echocardiogram History of edema History of stress test Hydronephrosis Hyperlipidemia Kidney stone Knee pain Left renal stone Left renal stone Microcalcification of right breast on mammogram Morbid obesity Non-smoker Nonspecific abnormal unspecified cardiovascular function study Obesity TATIANA (obstructive sleep apnea) TATIANA (obstructive sleep apnea) Paroxysmal atrial fibrillation Post-menopausal Shortness of breath on exertion Sleep apnea Stage 3b chronic kidney disease (CKD) Wears glasses Home Medications aspirin 81 mg tablet,delayed release 81 mg PO DAILY Anticoaglate 08/02/13 [History Last Taken 10/31/21] omeprazole 20 mg capsule,delayed release 20 mg PO QHS 06/22/19 [History Last Taken 05/14/21] cholecalciferol (vitamin D3) 1,250 mcg (50,000 unit) capsule 1 cap PO SA 07/10/19 [History Last Taken 05/12/21] hydrochlorothiazide 25 mg tablet 25 mg PO DAILY 08/09/19 [History Last Taken 05/15/21] acetaminophen 500 mg tablet 1,000 mg PO Q6H PRN Pain 05/15/21 [History Last Taken 05/15/21 06:00] escitalopram oxalate 20 mg tablet (Lexapro) 20 mg PO DAILY DEPRESSION 05/15/21 [History Last Taken 06/22/21 07:30] phenazopyridine 200 mg tablet (Pyridium) 200 mg PO TID PRN PRN Bladder Spasms 7 days #30 tabs 06/22/21 [Rx Last Taken Unknown] potassium chloride 10 mEq tablet,extended release 20 meq PO DAILY 10/18/21 [ History Last Taken Unknown] lorazepam 0.5 mg tablet 0.5 mg PO DAILY PRN 09/02/22 [History Last Taken Unknown] apixaban 5 mg tablet (Eliquis) 5 mg PO BID #180 tabs 02/18/23 [Rx Last Taken Unknown] simvastatin 40 mg tablet 40 mg PO QHS Cholesterol #90 tabs 06/03/23 [Rx Last Taken Unknown] metoprolol tartrate 25 mg tablet 12.5 mg (1/2 x 25 mg) PO BID B/P #90 tabs 08/18/23 [Rx Last Taken Unknown] ramipril 2.5 mg capsule (Altace) 2.5 mg PO DAILY #90 caps 08/18/23 [Rx Last Taken Unknown] Allergy/AdvReac Type Severity Reaction Status Date / Time No Known Allergies Allergy Verified 08/22/23 08:00 Family History Father Colon cancer Mother Cancer lung Surgical History History of cardiac catheterization History of cholecystectomy History of coronary artery stent placement History of cystoscopy History of lithotripsy Hx of CABG Postsurgical aortocoronary bypass status Postsurgical percutaneous transluminal coronary angioplasty (PTCA) status S/P coronary artery stent placement (~05/28/16) Social History household members: none housing: apartment pets and animals: Yes pets and animals: dog(s) Smoking Status: Never smoker alcohol intake: never substance use type: does not use ROS ROS ED Constitutional Constitutional ED: Denies chills, fever(s) or sweats Eyes Eyes: Denies blurry vision or change in vision ENT ENT ED: Denies ear pain or sore throat Cardiovascular Cardiovascular: Denies chest pain, palpitations or racing heartbeat Respiratory/Chest Respiratory/Chest: Denies cough, dyspnea or sputum Gastrointestinal Gastrointestinal: Denies abdominal pain, constipation, diarrhea, nausea or vomiting Genitourinary Genitourinary ED: Reports urinary frequency; Denies dysuria or hematuria Musculoskeletal Musculoskeletal: Denies arthralgias, myalgias or neck pain Integumentary Denies abscess, Abrasions or rash Neurologic Neurologic: Denies headache(s), paresthesias or weakness Psychiatric Psychiatric: Denies anxiety, depression, suicidal ideation or suicidal thoughts Endocrine Endocrinology: Denies polydipsia or polyuria EXAM Physical Exam Const Vital Signs: 08/22/23 07:59 08/22/23 10:03 Temperature 96.7 F L Temperature Source Temporal Pulse Rate 64 Respiratory Rate 16 16 Blood Pressure 159/47 H 140/52 H Blood Pressure Mean 84 81 Pulse Ox 100 96 Oxygen Delivery Method Room Air Room Air Positive well nourished General Appearance ED: NAD; Negative for pallor HEENT Reports moist mucous membranes Eyes PERRL and EOMs intact bilaterally Chest Wall inspection of chest normal Resp normal respiratory effort and clear to auscultation bilaterally Back/Spine no CVA tenderness Neuro oriented x3 and CN's II-XII intact bilaterally Sensorium / Orientation: alert Motor Exam: strength 5/5 throughout Psych mental status grossly normal Skin no rashes or lesions noted General Skin Exam: Negative for jaundice or pallor MDM MDM MDM Narrative Medical decision making narrative: Patient presented generalized weakness and concern for UTI and she has having some urinary she is on 2 courses of Bactrim. CBC was obtained to assess white blood cell count, hemoglobin, platelets. BMP to assess renal function, electrolytes, glucose. Urinalysis to assess for UTI and occult blood. CBC shows normal blood cell count at 9.6. Hemoglobin 9.3. Platelets 227. Creatinine today is elevated at 3.19 previously this was 1.57. Patient was given IV fluids. Calcium slightly elevated at 6.2 however is partially hemolyzed and repeat BMP was sent. Urinalysis shows some occult blood without evidence of infection. Because of the history of kidney stones I did obtain a CT scan of the abdomen pelvis without contrast. This shows a 4 mm calculus in the proximal portion of the right ureter causing mild degree of hydronephrosis. Patient states he does not have any flank pain, nausea, vomiting. She does not have any fevers or chills. Given the LINDA I discussed this with the hospitalist for admission. Is possible this could be due to poor fluid intake and it also could be due to the excessive Bactrim use. Patient admitted in stable condition. Impression: 1. Acute renal failure 2. 4 mm right proximal ureteral stone 3. Weakness 4. Closed injury 5. Falls Lab Data Attestation: I reviewed the patient's lab results. Labs: Laboratory Results - last 24 hr 08/22/23 08/22/23 08:07 08:55 WBC 9.6 RBC 3.62 L Hgb 11.3 L Hct 35.5 L MCV 98.1 MCH 31.2 MCHC 31.8 L RDW Std Deviation 47.7 H RDW Coeff of Abelardo 13.2 Plt Count 227 MPV 10.7 Immature Gran % (Auto) 0.400 Neut % (Auto) 59.9 Lymph % (Auto) 30.0 [place] % (Auto) 7.8 Eos % (Auto) 1.5 Baso % (Auto) 0.4 Absolute Neuts (auto) 5.7 Absolute Lymphs (auto) 2.87 Nucleated RBC % 0 Sodium 133 L Potassium 6.2 H* Chloride 110 H Carbon Dioxide 13.0 L Anion Gap 10 BUN 76 H Creatinine 3.19 H Est GFR (MDRD) Af Amer 18 L Est GFR (MDRD) Non-Af 15 L BUN/Creatinine Ratio 23.8 H Glucose 129 H Calcium 9.8 Urine Color Yellow Urine Clarity Sl. Cloudy Urine pH 5.0 Ur Specific [place] 1.020 Urine Protein 30 H Urine Glucose (UA) Normal Urine Ketones 5 H Urine Occult Blood 250 H Urine Nitrite Negative Urine Bilirubin Negative Urine Urobilinogen 1 H Ur Leukocyte Esterase 500 H Urine RBC 25-50 SEEN Urine WBC 25-50 SEEN Ur Squamous Epith Cells 0-5 SEEN Urine Bacteria 1+ Urine Mucus 0 SEEN Radiography Diagnostic Testing: Clinical Impression(s) from Imaging Studies Abdomen/Pelvis CT 08/22/23 09:22 IMPRESSION: 4 mm calculus in the proximal portion of the right ureter causing mild degree of right hydronephrosis. Scattered bilateral nonobstructive intrarenal calculi. Stable 1.2 cm adrenal adenoma in the left adrenal gland. Electronically Signed: Huseyin Morton MD at 10:20 EDT , Brain CT 08/22/23 09:22 IMPRESSION: Chronic involutional changes of the brain. Electronically Signed: Huseyin Morton MD at 10:15 EDT , Cervical Spine CT 08/22/23 09:22 IMPRESSION: Multilevel degenerative changes, as described above. Electronically Signed: Huseyin Morton MD at 10:22 EDT , Discharge Plan Triage Chief Complaint: Confusion ED Provider: Preet Allen Dx/Rx/DC Orders Primary Care Provider: Evangelist Henriquez
[2023-08-22 09:27] LABS: Mucous, Urine 0 SEEN /hpf (<or=2+)
[2023-08-22 09:30] LABS: Color, Urine Yellow (Yellow); Glucose, Dipstick Normal (Normal); Ketone-Dipstick 5 mg/dl (Negative); Leukocyte Esterase-Dipstick 500 /ul (Negative); Nitrite-Dipstick Negative (Negative); Occult Blood-Urine 250 /ul (Negative); Protein-Dipstick 30 mg/dl (Negative); Urine Bilirubin Dipstick Negative (Negative); Urine Clarity Sl. Cloudy (Clear); Urine Urobilinogen 1 mg/dl (Normal)
[2023-08-22] MEDS: 0.9% Normal Saline (1000mL) 1,000 ML 999 ML IV ×2 (09:41→11:11)
[2023-08-22 09:43] LABS: Bacteria 1+ /hpf (None Seen); Red Blood Cells-Urine 25-50 SEEN /hpf (0-5); Squamous Epithelial Cells - UA 0-5 SEEN /hpf (5-10); White Blood Cells 25-50 SEEN /hpf (0-5)
[2023-08-22 10:03] VITALS: BP 140/52; RESP 16; O2SAT 96
[2023-08-22 10:05] LABS: Anion Gap 10 (5-15); BUN 76 mg/dL (7-18); BUN/Creat Ratio 23.8 RATIO (10-20); Calcium,Total 9.8 mg/dL (8.5-10.1); Chloride 110 mmol/L (98-107); Creatinine, Serum 3.19 mg/dL (0.55-1.02); EST Glomerular Filtration Rate 15 mL/min (>60); Est Glom Filt Rate - Afr Amer 18 mL/min (>60); Glucose 129 mg/dL (74-106); Potassium 6.2 mmol/L (3.5-5.1); Sodium Level 133 mmol/L (136-145)
--- NOTE | 2023-08-22 11:07 | NURSING ---
DR BRYANT FOR DR NEWTON
--- NOTE | 2023-08-22 11:11 | NURSING ---
MED SURG TERELETSKY UTI, LINDA
[2023-08-22 11:31] VITALS: BP 127/98; PULSE 58; RESP 18; TEMP 36.7; O2SAT 99
[2023-08-22 11:37] VITALS: BMI 43.3
[2023-08-22] MEDS: Ceftriaxone 1 GM/50 ML BAG IV (11:37)
--- NOTE | 2023-08-22 11:38 | ED.RN ---
pt does not have list of meds and doesnt think she can remember them correctly
[2023-08-22 11:45] LABS: Anion Gap 9 (5-15); BUN 72 mg/dL (7-18); BUN/Creat Ratio 25.4 RATIO (10-20); Calcium,Total 9.2 mg/dL (8.5-10.1); Chloride 113 mmol/L (98-107); Creatinine, Serum 2.83 mg/dL (0.55-1.02); EST Glomerular Filtration Rate 17 mL/min (>60); Est Glom Filt Rate - Afr Amer 21 mL/min (>60); Estimated Creatinine Clearance 20.87 ml/min; Glucose 120 mg/dL (74-106); Potassium 5.7 mmol/L (3.5-5.1); Sodium Level 135 mmol/L (136-145)
[2023-08-22 12:30] VITALS: BP 144/52; PULSE 52; RESP 16; TEMP 36.4; O2SAT 98
[2023-08-22 12:38] VITALS: BMI 41.3
[2023-08-22] MEDS: 0.9% Normal Saline (1000mL) 1,000 ML 125 ML IV ×2 (13:26→21:07)
--- NOTE | 2023-08-22 15:20 | CASEMGMT ---
KATIE HARTLEY Face to Face with patient for initial transition planning/care coordination assessment. KATIE HARTLEY introduced self and role at [facility]. Patient lying in bed, alert and oriented. Patient willing to participate in assessment and is able to answer all questions appropriately. Care providers, pharmacy, and demographics verified. PCP: Martinez Specialists: Kaelyn process lead Preferred Pharmacy: [facility] Insurance: MCR, [employer] Prescription Benefit: yes Living Will/HPOA: yes, daughter Kiara Jenkins LNOK: daughers, son Living Arrangements: Patient lives alone in a first floor apartment with no steps to enter. Patients she is independent at home. Transportation: daughter, jose carlos DME/HHC: Patient has shower chair, cane, rollator, grab bars, glucometer at home. No previous SNF. Patient is active with [facility] for PT. Patient wishes to discharge home with resumption of HHC with [facility]. KATIE HARTLEY called and notified of admission, green sheet on chart. Patient states he has no further needs or concerns at this time. CM to follow for discharge planning needs that may arise. Disposition Plan: Patient to [facility] home with resumption of HHC, family support, and follow-up plans in place. Conchita CERVANTES, RN, CM
--- NOTE | 2023-08-22 15:26 | HP.PCM.HOS_ITS ---
HPI - General General Date of Admission: 08/22/23 Date of Service: 08/22/23 Chief Complaint: Generalized weakness, mild confusion HPI Narrative RUBEN COSTELLO, is a 73 F who presents to the emergency room at [facility] today after being brought in by her family due to some mild confusion at home today along with generalized weakness. Patient was recently treated for urinary tract infection was on Bactrim. Workup in the emergency room included labs which showed a normal white blood cell count at 9.6, hemoglobin was 11.3, chemistry panel showed an elevated potassium at 6.2, chloride was 110, and creatinine was 3.19. Patient's urinalysis showed 25-50 RBCs and 25-50 WBCs, +1 bacteria was noted and leukocyte Estrace was positive at 500. CT of the abdomen and pelvis was obtained, it was read out as showing a 4 mm c alculus in the proximal portion of the right ureter causing mild degree of right hydronephrosis, there is also noted to be scattered bilateral nonobstructing intrarenal calculi. Finally a stable 1.2 cm adrenal adenoma on the left adrenal gland was noted to be present. CT of the brain did not show any acute event cervical spine CT was unremarkable except for arthritic changes. I talked to (her urologist) and she reviewed the films and does not think that the area in the proximal right ureter is actually calculus, she states the patient has had a dilated ureter with mild hydronephrosis for quite some time. Patient will be admitted to [facility], labs will be monitored, she will be placed on Rocephin for suspected cystitis, she will be given IV fluids for acute kidney injury. [facility] Medical History Abnormal pulmonary function test Anxiety Arthritis Asthma Atherosclerosis of coronary 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 Atherosclerotic heart disease of [place] coronary artery without angina pectoris Cardiology follow-up encounter Chronic diastolic (congestive) heart failure COPD (chronic obstructive pulmonary disease) CPAP (continuous positive airway pressure) dependence Depression DVT (deep venous thrombosis) Erythematous bladder mucosa Essential hypertension Gastric reflux GERD (gastroesophageal reflux disease) Hemorrhoids High cholesterol History of atrial fibrillation History of echocardiogram History of edema History of stress test Hydronephrosis Hyperlipidemia Kidney stone Knee pain Left renal stone Left renal stone Microcalcification of right breast on mammogram Morbid obesity Non-smoker Nonspecific abnormal unspecified cardiovascular function study Obesity TATIANA (obstructive sleep apnea) TATIANA (obstructive sleep apnea) Paroxysmal atrial fibrillation Post-menopausal Shortness of breath on exertion Sleep apnea Stage 3b chronic kidney disease (CKD) Wears glasses Home Medications aspirin 81 mg tablet,delayed release 81 mg PO DAILY Anticoaglate 08/02/13 [History Last Taken 08/22/23] omeprazole 20 mg capsule,delayed release 20 mg PO QHS Heartburn 06/22/19 [History Last Taken 08/21/23] cholecalciferol (vitamin D3) 1,250 mcg (50,000 unit) capsule 1 cap PO SA Ordered by Dr. Henriquez 07/10/19 [History Last Taken 08/16/23] hydrochlorothiazide 25 mg tablet 25 mg PO DAILY Health 08/09/19 [History Last Taken 08/22/23] acetaminophen 500 mg tablet 1,000 mg PO Q6H PRN Pain 05/15/21 [History Last Ta florentin 08/08/23] escitalopram oxalate 20 mg tablet (Lexapro) 20 mg PO DAILY DEPRESSION 05/15/21 [History Last Taken 08/21/23] potassium chloride 10 mEq tablet,extended release 20 meq PO DAILY Heart health 10/18/21 [History Last Taken 08/22/23] apixaban 5 mg tablet (Eliquis) 5 mg PO BID Anticoagulant #180 tabs 02/18/23 [Rx Last Taken 08/22/23] simvastatin 40 mg tablet 40 mg PO QHS Cholesterol #90 tabs 06/03/23 [Rx Last Taken 08/21/23] metoprolol tartrate 25 mg tablet 12.5 mg (1/2 x 25 mg) PO BID B/P #90 tabs 08/18/23 [Rx Last Taken 08/22/23] ramipril 2.5 mg capsule (Altace) 2.5 mg PO DAILY #90 caps 08/18/23 [Rx Last Taken 08/22/23] Allergy/AdvReac Type Severity Reaction Status Date / Time No Known Allergies Allergy Verified 08/22/23 08:00 Family History (Updated 08/22/23 @ 13:10 by Addison Garcia) Father Colon cancer Mother Cancer lung Other Gastric reflux Surgical History History of cardiac catheterization History of cholecystectomy History of coronary artery stent placement History of cystoscopy History of lithotripsy Hx of CABG Postsurgical aortocoronary bypass status Postsurgical percutaneous transluminal coronary angioplasty (PTCA) status S/P coronary artery stent placement (~05/28/16) Social History household members: none housing: apartment pets and animals: Yes pets and animals: dog(s) Smoking Status: Never smoker alcohol intake: never substance use type: does not use ROS Constitutional Constitutional: Reports malaise; Denies anorexia, change in weight, chills, fatigue, fever(s), night sweats or weakness Eyes Eyes: Denies blurry vision, change in vision, discharge from eye(s) or eye pain Cardiovascular Cardiovascular: Denies chest pain, claudication, edema or palpitations Respiratory/Chest Respiratory/Chest: Denies cough, hemoptysis, shortness of breath at rest or s hortness of breath with exertion Gastrointestinal Gastrointestinal: Denies abdominal pain, constipation, diarrhea, hematemesis, hematochezia, melena, nausea or vomiting Genitourinary Genitourinary: Reports urinary frequency; Denies dysuria, hematuria, urinary hesitancy, urinary incontinence or urinary urgency Musculoskeletal Musculoskeletal: Denies back pain, joint pain, joint stiffness, joint swelling, myalgias or neck pain Neurologic Neurologic: Denies abnormal gait, abnormal speech, dizziness, focal weakness, headache(s), loss of vision, numbness, other visual disturbances, paresthesias, syncope or tingling Psychiatric Psychiatric: Denies anxiety, cognitive impairment, depression, irritability, mood swings or suicidal ideation Endocrine Endocrinology: Denies change in body appearance, cold intolerance, excessive sweating, heat intolerance, polydipsia or polyuria Hematologic/Lymphatic Hematologic/Lymphatic: Denies none, anemia, easy bleeding, easy bruising or lymphadenopathy Allergic/Immunologic Allergic/Immunologic: Denies rhinitis, urticaria, eczemia or asthma Vital Signs Vital Signs Vital Signs: 08/22/23 07:59 08/22/23 10:03 08/22/23 11:31 Temperature 96.7 F L 98.1 F Temperature Source Temporal Pulse Rate 64 58 L Respiratory Rate 16 16 18 Blood Pressure 159/47 H 140/52 H 127/98 H Blood Pressure Mean 84 81 107 Blood Pressure Source Blood Pressure Position Blood Pressure Location Pulse Ox 100 96 99 Oxygen Delivery Method Room Air Room Air 08/22/23 12:30 Temperature 97.6 F L Temperature Source Oral Pulse Rate 52 L Respiratory Rate 16 Blood Pressure 144/52 H Blood Pressure Mean 82 Blood Pressure Source Monitor Blood Pressure Position Semi-Fowlers Blood Pressure Location Right Arm Pulse Ox 98 Oxygen Delivery Method Room Air Weight Weight: 105.7 kg Body Mass Index (BMI) 41.3 Physical Exam Const alert, oriented x3, no apparent distress, average body habitus and healthy appearing General Appearance: cooperative, well kempt and well developed Orientation / Consciousness: awake, oriented to person, oriented to place and oriented to time HEENT normocephalic, head/scalp atraumatic, hearing grossly normal bilaterally and moist oral mucous membranes Eyes PERRL, EOMs intact bilaterally and conjunctivae normal Neck supple, no JVD, thyroid normal and no carotid bruits General: trachea midline Resp normal respiratory effort, no retractions, no use of accessory muscles and clear to auscultation bilaterally Auscultation: Negative for rales, rhonchi or wheezes Cardio regular rate, regular rhythm, S1 normal heart sound, S2 normal heart sound, no murmurs, no rub and no gallops GI normal to inspection, nondistended, normoactive bowel sounds, soft to palpation, non-tender and non-distended Extremity no clubbing, cyanosis or edema Skin no rashes or lesions noted General Skin Exam: no breakdown Neuro oriented x3, CN's II-XII intact bilaterally, no focal motor deficits and no sensory deficits noted Sensorium / Orientation: awake, alert, oriented to person, oriented to place and oriented to time Speech: speech normal Psych affect normal Results Lab / Micro Data 08/22/23 08:55 08/22/23 11:16 Labs: Laboratory Results - last 24 hr 08/22/23 08:07: Urine Color Yellow, Urine Clarity Sl. Cloudy, Urine pH 5.0, Ur Specific [place] 1.020, Urine Protein 30 H, Urine Glucose (UA) Normal, Urine Ketones 5 H, Urine Occult Blood 250 H, Urine Nitrite Negative, Urine Bilirubin Negative, Urine Urobilinogen 1 H, Ur Leukocyte Esterase 500 H, Urine RBC 25-50 S EEN, Urine WBC 25-50 SEEN, Ur Squamous Epith Cells 0-5 SEEN, Urine Bacteria 1+, Urine Mucus 0 SEEN 03/22/24 08:55: WBC 9.6, RBC 3.62 L, Hgb 11.3 L, Hct 35.5 L, MCV 98.1, MCH 31.2, MCHC 31.8 L, RDW Std Deviation 47.7 H, RDW Coeff of Abelardo 13.2, Plt Count 227, MPV 10.7, Immature Gran % (Auto) 0.400, Neut % (Auto) 59.9, Lymph % (Auto) 30.0, [place] % (Auto) 7.8, Eos % (Auto) 1.5, Baso % (Auto) 0.4, Absolute Neuts (auto) 5.7, Absolute Lymphs (auto) 2.87, Nucleated RBC % 0, Sodium 133 L, Potassium 6.2 H*, Chloride 110 H, Carbon Dioxide 13.0 L, Anion Gap 10, BUN 76 H, Creatinine 3.19 H, Est GFR (MDRD) Af Amer 18 L, Est GFR (MDRD) Non-Af 15 L, BUN/Creatinine Ratio 23.8 H, Glucose 129 H, Calcium 9.8 08/22/23 11:16: Sodium 135 L, Potassium 5.7 H, Chloride 113 H, Carbon Dioxide 13.0 L, Anion Gap 9, BUN 72 H, Creatinine 2.83 H, Estim Creat Clear Calc 20.87, Est GFR (MDRD) Af Amer 21 L, Est GFR (MDRD) Non-Af 17 L, BUN/Creatinine Ratio 25.4 H, Glucose 120 H, Calcium 9.2 Imaging Radiology Impression Abdomen/Pelvis CT 08/22/23 09:22 IMPRESSION: 4 mm calculus in the proximal portion of the right ureter causing mild degree of right hydronephrosis. Scattered bilateral nonobstructive intrarenal calculi. Stable 1.2 cm adrenal adenoma in the left adrenal gland. Electronically Signed: Huseyin Morton MD at 10:20 EDT , Brain CT 08/22/23 09:22 IMPRESSION: Chronic involutional changes of the brain. Electronically Signed: Huseyin Morton MD at 10:15 EDT , Cervical Spine CT 08/22/23 09:22 IMPRESSION: Multilevel degenerative changes, as described above. Electronically Signed: Huseyin Morton MD at 10:22 EDT , Assessment & Plan Assessment/Plan (1) Urinary tract infection: PLAN: Plan 1. Acute kidney injury-patient will be admitted to [facility], she will be placed on IV fluids and labs will be monitored. #2 hyperkalemia-patient's second potassium result was lower than the first 1 which was drawn in the ER, BMP will be repeated tomorrow #3 acute cystitis resistant to outpatient treatment-patient was placed on IV Rocephin #4 metabolic encephalopathy secondary to acute cystitis and acute kidney injury- patient is alert and oriented at this time and does not appear to be confused. #5 atherosclerotic heart disease-complicates care, medical course, recovery, and prognosis Total clinical time spent by myself addressing the patient's medical issues, reviewing all of her data, and collaborating with patient's care team: 55 minutes Charges/Coding Visit Charges Inpatient E&M: 98748 Init Hosp L2
[2023-08-22 18:30] VITALS: BP 138/55; PULSE 55; RESP 16; TEMP 36.4; O2SAT 98
[2023-08-22 21:07] VITALS: BP 141/52; PULSE 57
[2023-08-22] MEDS: Metoprolol Tartrate 25 MG Tablet 12.5 MG PO (21:07)
[2023-08-22] MEDS: APIXABAN 5 MG TABLET PO (21:07)
[2023-08-22] MEDS: Atorvastatin Calcium 20 MG Tablet PO (21:07)
[2023-08-22] MEDS: Pantoprazole Sodium 20 MG Tablet PO (21:11)
[2023-08-22] MEDS: Acetaminophen 325 MG Tablet 650 MG PO (21:39)
--- NOTE | 2023-08-22 22:14 | NURSING ---
Pt assisted up to chair for comfort as she is c/o pain from being in the bed. Chair alarm placed under her. Gait slow and steady w/rollator and staff assist.Ice pack provided for c/o rt knee pain and PRN Tylenol given.
[2023-08-23] VITALS (7 sets, daily range): BP systolic 132–155; BP diastolic 52–62; PULSE 57–67; RESP 14–18; TEMP 36.3–37.3; O2SAT 99–100
[2023-08-23] MEDS: Acetaminophen 325 MG Tablet 650 MG PO ×2 (04:18→21:14)
[2023-08-23] MEDS: 0.9% Normal Saline (1000mL) 1,000 ML 125 ML IV ×3 (04:19→20:54)
[2023-08-23 05:48] LABS: Absolute Lymphocyte Count 3.81 X10^3/uL (0.83-4.51); Absolute Neutrophil Count 5.1 X10^3/uL (2.0-7.7); Basophil# 0.03 X10^3/uL; Basophil% 0.3 % (0-1); Hematocrit 31.6 % (37-47); Hemoglobin 10.5 g/dL (12.0-15.0); Lymphocyte # 3.81 X10^3/ul (0.83-4.51); Lymphocyte % 39.1 % (19-41); Mean Corp Hgb Conc 33.2 g/dL (32-36); Mean Corpuscular Hgb 32.2 pg (27.0-32.0); Mean Corpuscular Volume 96.9 fL (81-99); Monocyte# 0.71 X10^3/uL; Monocyte% 7.3 % (0-10); NRBC Flagged by Analyzer 0 % (0-5); Neutrophil # 5.07 X10^3/uL (2.7-7.7); Platelet Count 212 K/mm3 (150-450); RBC Distribution Width CV 13.2 % (11.6-14.6); RBC Distribution Width SD 47.2 fl (35.1-43.9); Red Blood Count 3.26 M/mm3 (4.2-5.4); White Blood Count 9.8 K/mm3 (4.4-11.0)
[2023-08-23 06:08] LABS: Anion Gap 7 (5-15); BUN 55 mg/dL (7-18); BUN/Creat Ratio 27.5 RATIO (10-20); Chloride 117 mmol/L (98-107); EST Glomerular Filtration Rate 26 mL/min (>60); Est Glom Filt Rate - Afr Amer 31 mL/min (>60); Estimated Creatinine Clearance 28.72 ml/min; Glucose 123 mg/dL (74-106); Sodium Level 139 mmol/L (136-145)
[2023-08-23] MEDS: Metoprolol Tartrate 25 MG Tablet 12.5 MG PO ×2 (09:25→21:15)
[2023-08-23] MEDS: APIXABAN 5 MG TABLET PO ×2 (09:25→21:14)
[2023-08-23] MEDS: Escitalopram Oxalate 20 MG Tablet PO (09:26)
[2023-08-23] MEDS: Aspirin E.C. 81 MG Tablet PO (09:26)
[2023-08-23] MEDS: Ceftriaxone 1 GM/50 ML BAG IV (09:32)
[2023-08-23] MEDS: Nystatin Powder 15gm Bottle 1 APPLIC TOPICAL ×2 (09:33→21:12)
--- NOTE | 2023-08-23 11:56 | PN.HOSP_ITS ---
Reason for Visit Reason for Visit: Diagnoses Urinary tract infection, site not specified (08/22/23) Subjective Subjective Patient was seen and examined today, I talked with her daughter, she has been hallucinating today but the patient seems to indicate to me that she knows that she is seeing things that are not there. Patient's creatinine and BUN are improved, white blood cell count remains normal, urine culture is pending at this time, her vitals are stable Objective Data Objective Data Vital Signs: Vital Signs Temp Pulse Resp BP Pulse Ox O2 Del Method 97.3 F L 62 18 155/55 H 99 Room Air 08/23/23 09:22 08/23/23 09:25 08/23/23 09:22 08/23/23 09:25 08/23/23 09:22 08/23/23 09:22 Oxygen Delivery Method Room Air Weight: 105.7 kg Body Mass Index (BMI) 41.3 Intake & Output: Intake and Output for Last 24 Hours 08/21/23 08/22/23 08/23/23 23:59 23:59 23:59 Intake Total 3010.42 / 3260.42 1440 / 1440 Output Total 600 / 1150 1300 / 1300 Balance 2410.42 / 2110.42 140 / 140 Lab / Micro Data 08/23/23 05:13 08/23/23 05:13 Labs: Laboratory Results - last 24 hr 08/23/23 05:13: WBC 9.8, RBC 3.26 L, Hgb 10.5 L, Hct 31.6 L, MCV 96.9, MCH 32.2 H, MCHC 33.2, RDW Std Deviation 47.2 H, RDW Coeff of Abelardo 13.2, Plt Count 212, MPV 10.0, Immature Gran % (Auto) 0.300, Neut % (Auto) 52.0, Lymph % (Auto) 39.1, [place] % (Auto) 7.3, Eos % (Auto) 1.0, Baso % (Auto) 0.3, Absolute Neuts (auto) 5.1, Absolute Lymphs (auto) 3.81, Nucleated RBC % 0, Sodium 139, Potassium 5.0, Chloride 117 H, Carbon Dioxide 15.0 L, Anion Gap 7, BUN 55 H, Creatinine 2.00 H, Estim Creat Clear Calc 28.72, Est GFR (MDRD) Af Amer 31 L, Est GFR (MDRD) Non-Af 26 L, BUN/Creatinine Ratio 27.5 H, Glucose 123 H, Calcium 9.0 Physical Exam Const alert, no apparent distress and healthy appearing Constitutional Narrative: Patient has some mild confusion, she is seeing objects General Appearance: cooperative, well kempt and well developed Orientation / Consciousness: awake, oriented to person and oriented to place HEENT normocephalic, head/scalp atraumatic and moist oral mucous membranes Eyes PERRL, EOMs intact bilaterally and conjunctivae normal Neck supple, no JVD, thyroid normal and no carotid bruits General: trachea midline Resp normal respiratory effort and clear to auscultation bilaterally Auscultation: Negative for rales, rhonchi or wheezes Cardio regular rate, regular rhythm, no murmurs, no rub and no gallops GI normal to inspection, nondistended, normoactive bowel sounds, soft to palpation, non-tender and non-distended Extremity no clubbing, cyanosis or edema Skin no rashes or lesions noted General Skin Exam: no breakdown Neuro CN's II-XII intact bilaterally, no focal motor deficits and no sensory deficits noted Neuro Narrative: Patient is alert and responds appropriately to some questions, she has some hallucinations during the exam Sensorium / Orientation: awake and alert Speech: speech normal Psych Psych Narrative: Patient is having some hallucinations intermittently Assessment & Plan Assessment/Plan (1) LINDA (acute kidney injury): (2) Urinary tract infection: PLAN: Plan 1. Acute kidney injury-patient's labs are improved, continue IV fluid administration #2 hyperkalemia-resolved at this time, labs will be repeated tomorrow #3 acute cystitis resistant to outpatient treatment-patient was placed on IV Rocephin #4 metabolic encephalopathy secondary to acute cystitis and acute kidney injury- continue supportive care #5 atherosclerotic heart disease-complicates care, medical course, recovery, and prognosis Total clinical time spent by myself addressing the patient's medical issues, reviewing all of her data, and collaborating with patient's care team: 35 minutes Charges/Coding Visit Charges Inpatient E&M: 01350 Subs Hosp L2
--- NOTE | 2023-08-23 12:25 | CASEMGMT ---
Social Work Daughter Kiara asked SW to verify pt's contacts. SW reviewed the contact information on the face sheet w/daughter, no further needs at this time. JANET Pedraza
[2023-08-23] MEDS: LORazepam 0.5 MG Tablet PO (21:14)
[2023-08-23] MEDS: Atorvastatin Calcium 20 MG Tablet PO (21:14)
[2023-08-23] MEDS: Pantoprazole Sodium 20 MG Tablet PO (21:14)
--- NOTE | 2023-08-23 22:45 | NURSING ---
Pt very confused and having hallucinations; has set off bed exit and chair alarms multiple times this shift so far. Attempts to reorient and redirect unsuccessful. Pt just now attempted to get out of bed, alarm sounding and pt found sitting at end of bed covered in her own blood. Pt assessed and PIV found to have been pulled by pt. Pt given soap and water bath, bed linens changed and new PIV started and then wrapped w/an ISAMAR wrap. Pt resting w/eyes closed now, talking to someone that is not present. Attempted to reorient. Bed exit alarm set to middle sensitivity.
[2023-08-24 02:45] VITALS: BP 128/59; PULSE 60; RESP 19; TEMP 37.2; O2SAT 99
[2023-08-24] MEDS: Nystatin Powder 15gm Bottle 1 APPLIC TOPICAL ×3 (05:07→20:38)
[2023-08-24] MEDS: 0.9% Normal Saline (1000mL) 1,000 ML 125 ML IV (06:47)
[2023-08-24 07:05] LABS: Anion Gap 3 (5-15); BUN 34 mg/dL (7-18); BUN/Creat Ratio 24.8 RATIO (10-20); Calcium,Total 8.7 mg/dL (8.5-10.1); Chloride 118 mmol/L (98-107); Creatinine, Serum 1.37 mg/dL (0.55-1.02); EST Glomerular Filtration Rate 40 mL/min (>60); Est Glom Filt Rate - Afr Amer 48 mL/min (>60); Estimated Creatinine Clearance 41.93 ml/min; Glucose 108 mg/dL (74-106); Potassium 4.8 mmol/L (3.5-5.1); Sodium Level 139 mmol/L (136-145)
[2023-08-24 08:45] VITALS: BP 152/64; PULSE 59; RESP 16; TEMP 36.7; O2SAT 99
[2023-08-24 10:10] VITALS: BP 152/64; PULSE 59
[2023-08-24] MEDS: Escitalopram Oxalate 20 MG Tablet PO (10:10)
[2023-08-24] MEDS: Aspirin E.C. 81 MG Tablet PO (10:10)
[2023-08-24] MEDS: APIXABAN 5 MG TABLET PO ×2 (10:10→20:38)
[2023-08-24] MEDS: Metoprolol Tartrate 25 MG Tablet 12.5 MG PO ×2 (10:10→20:37)
[2023-08-24] MEDS: Acetaminophen 325 MG Tablet 650 MG PO ×2 (11:56→20:37)
[2023-08-24 15:00] VITALS: BP 117/55; PULSE 53; RESP 14; TEMP 36.4; O2SAT 99
[2023-08-24] MEDS: Cephalexin 250 MG Capsule PO ×2 (16:03→20:37)
[2023-08-24] MEDS: Pantoprazole Sodium 20 MG Tablet PO (20:36)
[2023-08-24 20:37] VITALS: PULSE 60
[2023-08-24] MEDS: Atorvastatin Calcium 20 MG Tablet PO (20:37)
[2023-08-24 20:45] VITALS: BP 134/64; PULSE 60; RESP 18; TEMP 36.5; O2SAT 99
[2023-08-25 03:15] VITALS: BP 110/73; PULSE 52; RESP 18; TEMP 36.6; O2SAT 94
[2023-08-25] MEDS: Cephalexin 250 MG Capsule PO (06:10)
[2023-08-25 06:54] LABS: Absolute Lymphocyte Count 2.36 X10^3/uL (0.83-4.51); Absolute Neutrophil Count 2.9 X10^3/uL (2.0-7.7); Basophil# 0.03 X10^3/uL; Basophil% 0.5 % (0-1); Eosinophil# 0.12 X10^3/uL; Hemoglobin 9.7 g/dL (12.0-15.0); Lymphocyte # 2.36 X10^3/ul (0.83-4.51); Lymphocyte % 39.5 % (19-41); Mean Corp Hgb Conc 32.3 g/dL (32-36); Mean Corpuscular Volume 95.8 fL (81-99); Mean Platelet Vol. 9.7 fl (6.2-12.0); Monocyte# 0.49 X10^3/uL; Monocyte% 8.2 % (0-10); NRBC Flagged by Analyzer 0 % (0-5); Neutrophil # 2.94 X10^3/uL (2.7-7.7); Neutrophil % 49.3 % (47-70); Platelet Count 198 K/mm3 (150-450); RBC Distribution Width CV 13.2 % (11.6-14.6); RBC Distribution Width SD 46.6 fl (35.1-43.9); Red Blood Count 3.13 M/mm3 (4.2-5.4)
[2023-08-25 07:25] LABS: Phosphorus 2.7 mg/dL (2.5-4.9)
[2023-08-25 07:31] LABS: Anion Gap 6 (5-15); BUN 28 mg/dL (7-18); BUN/Creat Ratio 25.2 RATIO (10-20); Calcium,Total 9.1 mg/dL (8.5-10.1); Chloride 115 mmol/L (98-107); Creatinine, Serum 1.11 mg/dL (0.55-1.02); EST Glomerular Filtration Rate 51 mL/min (>60); Est Glom Filt Rate - Afr Amer 62 mL/min (>60); Estimated Creatinine Clearance 51.75 ml/min; Glucose 127 mg/dL (74-106); Magnesium 1.5 mg/dL (1.6-2.6); Potassium 4.3 mmol/L (3.5-5.1); Sodium Level 139 mmol/L (136-145); Thyroid Stim Hormone (TSH) 5.13 uIU/mL (0.358-3.74)
[2023-08-25] MEDS: Aspirin E.C. 81 MG Tablet PO (08:01)
[2023-08-25 08:23] LABS: Ferritin 84 ng/mL (8-252); Iron 60 ug/dL (50-170); Iron Binding Capacity,Total 229 ug/dL (250-450); PERCENT IRON SATURATION 26.2 % (15.0-55.0)
--- NOTE | 2023-08-25 08:28 | MRI_ITS ---
EXAM: MR HEAD WITHOUT AND WITH INTRAVENOUS CONTRAST CLINICAL INDICATION: Balance issues TECHNIQUE: Multiplanar and multisequence MR images of the brain were obtained without and with intravenous contrast. CONTRAST: IV 20mls Clariscan COMPARISON: CT brain 08/22/2023 FINDINGS: BRAIN AND EXTRA-AXIAL SPACES: Increased T2 signal intensity within the cerebral white matter suggestive of chronic microvascular change. No abnormal contrast enhancement. No intra- or extra-axial hemorrhage. No evidence of acute infarct. No intracranial mass or mass effect. There is preservation of the may/white matter interface. Posterior fossa structures are unremarkable. Ventricles are appropriate for age. No hydrocephalus. Basal cisterns are patent. SELLA: Normal. Normal sella turcica, pituitary gland, infundibular stalk, optic chiasm and hypothalamus. AUDITORY SYSTEM: Normal. The internal auditory canals are patent. BONES/JOINTS: Intact calvarium. SINUSES: Unremarkable as visualized. Clear. MASTOID AIR CELLS: Unremarkable as visualized. Clear. ORBITS: Unremarkable as visualized. Both globes, extraocular muscles, optic nerves and retrobulbar fat appear unremarkable. VASCULATURE: Unremarkable as visualized. Normal flow voids in the major intracranial circulation. MRI/Brain W/WO Contrast IMPRESSION: 1. No acute intracranial abnormality. 2. Chronic microvascular changes. Electronically Signed: Herbert Cruz MD at 11:47 EDT ,
[2023-08-25 08:41] VITALS: BP 170/66; PULSE 57; RESP 17; TEMP 36.7; O2SAT 96
[2023-08-25] MEDS: Magnesium Sulfate 2 GM in Dextrose 5%-Water (100mL Bag) 100 ML IV (08:50)
[2023-08-25 11:49] VITALS: PULSE 61
[2023-08-25] MEDS: Escitalopram Oxalate 20 MG Tablet PO (11:49)
[2023-08-25] MEDS: Metoprolol Tartrate 25 MG Tablet 12.5 MG PO (11:49)
[2023-08-25] MEDS: APIXABAN 5 MG TABLET PO (11:49)
[2023-08-25 12:00] VITALS: BP 148/69; PULSE 55; RESP 16; TEMP 36.4; O2SAT 99
--- NOTE | 2023-08-25 12:26 | PCM.DC.SUM ---
Providers Date of Admission: 08/22/23 Date of Discharge: 08/25/23 Primary Care Physician: Dr. Evangelist Henriquez DO Reason For Visit: UTI, LINDA Diagnosis Discharge Diagnosis (1) LINDA (acute kidney injury): Status: Resolved Code(s): N17.9 - Acute kidney failure, unspecified Medications at Discharge Home Medications aspirin 81 mg tablet,delayed release 81 mg PO DAILY Anticoaglate 08/02/13 omeprazole 20 mg capsule,delayed release 20 mg PO QHS Heartburn 06/22/19 cholecalciferol (vitamin D3) 1,250 mcg (50,000 unit) capsule 1 cap PO SA Ordered by Dr. Henriquez 07/10/19 hydrochlorothiazide 25 mg tablet 25 mg PO DAILY Health 08/09/19 acetaminophen 500 mg tablet 1,000 mg PO Q6H PRN Pain 05/15/21 escitalopram oxalate 20 mg tablet (Lexapro) 20 mg PO DAILY DEPRESSION 05/15/21 potassium chloride 10 mEq tablet,extended release 20 meq PO DAILY Heart health 10/18/21 apixaban 5 mg tablet (Eliquis) 5 mg PO BID Anticoagulant #180 tabs 02/18/23 simvastatin 40 mg tablet 40 mg PO QHS Cholesterol #90 tabs 06/03/23 metoprolol tartrate 25 mg tablet 12.5 mg (1/2 x 25 mg) PO BID B/P #90 tabs 08/18/23 ramipril 2.5 mg capsule (Altace) 2.5 mg PO DAILY #90 caps 08/18/23 risperidone 0.5 mg tablet (Risperdal) 0.5 mg PO QHS #30 tabs 08/25/23 Hospital Course Operations None Procedures EKG and - (CT abdomen pelvis/CT brain/CT cervical spine/MRI brain) Summary of Care Provided Minutes Spent on Discharge: 40 Hospital Course: Mrs. Meeks is a 73-year-old white female who presented to the emergency department at [facility] on 08/22/2023 due to generalized weakness and confusion. She has had a history of urinary tract infections and was placed on Bactrim recently. Vital signs on presentation were overtly unremarkable and her CBC was unimpressive however her chemistry panel showed hyperkalemia with a potassium of 6.2 and a serum creatinine of 3.19. I highly suspect that her potassium elevation in renal dysfunction on presentation more likely related to Bactrim and have listed this as an allergy. Her UA on presentation showed some white cells and 1+ bacteria and was leuk esterase positive so urine culture was sent and she was placed on ceftriaxone. Urine culture showed ESBL Klebsiella pneumonia as well as Schaalia odontolyticus. However, colony counts with <1000 CFU per mL so we discontinue antibiotics. Her HCTZ and ramipril as well as her supplemental potassium were held during her hospitalization and her renal function slowly improved. Her mental status improved as her renal function improved and I suspect her mental status was related to toxic/metabolic encephalopathy due to decreased clearance of her medications along with her renal dysfunction on presentation. She has had many falls recently and was seen by physical and Occupational Therapy. They felt she was okay for continued home health which has already been established. I did obtain an MRI and it shows chronic involutional changes but no acute changes. This MRI was with contrast. On the day of discharge she was alert and oriented x 4 however having some intermittent sundowning at night. We did start risperidone 0.5 mg at at bedtime to help with this at discharge and she was given a 1 month prescription. I also had her do a clock drawing prior to discharge which was an accurate. She initially placed numbers in the wrong place and some of them were placed outside of the clock with the incorrect time. She did read do the clock drawing without prompting as she did seem to recognize she made errors on the initial clock however numbers are still not in the right place and the time was an accurate and placed at 3:00 when I asked her to make it to a 2:00. I have advised her family to have [facility] as I do suspect she may have some mild cognitive impairment. They were given the information and advised to follow-up within the next 2 to 4 weeks to establish an appointment for further evaluation there. She was able to be discharged home with her daughter in stable condition. She will be staying with her daughter and we have listed Bactrim as an allergy for her. She will be discharged home in stable condition on 08/25/2023 to her daughter's house for ongoing assistance and home health care. Discharge diagnoses: Toxic/metabolic encephalopathy-resolved Chronic mild hydronephrosis Hypomagnesemia LINDA Hyperkalemia Suspected mild cognitive impairment CAD HTN HPL GERD PAF Asthma TATIANA CKD stage IIIb Morbid obesity Physical Exam Narrative Patient has no complaints. She does acknowledge she has been falling at home. There have been some signs of sundowning in the evening so I do question whether or not she has some mild cognitive impairment at this time. Const alert, oriented x3, no apparent distress, no limitations and well nourished; Negative for average body habitus Constitutional Narrative: Morbidly obese, white female, older, sitting up in bed watching television, nursing clerk at the bedside, patient appears comfortable and nontoxic General Appearance: cooperative, comfortable, well kempt and well developed Orientation / Consciousness: awake, oriented to person, oriented to place and oriented to time Exam Limitations: no limitations Nutritional Appearance: morbidly obese HEENT normocephalic, head/scalp atraumatic, hearing grossly normal bilaterally and moist oral mucous membranes HEENT Narrative: Dentition is fair, Mallampati is 3, no thrush Eyes PERRL, EOMs intact bilaterally and conjunctivae normal Eyes Narrative: No scleral icterus Neck no lymphadenopathy and supple Neck Narrative: Trachea midline, no thyroid enlargement Resp normal respiratory effort, no retractions, no use of accessory muscles and clear to auscultation bilaterally Auscultation: Negative for rales, rhonchi or wheezes Cardio regular rate, regular rhythm, S1 normal heart sound, S2 normal heart sound, no murmurs, no rub, no gallops and no clicks GI normal to inspection, nondistended, normoactive bowel sounds, soft to palpation and non-tender Extremity no clubbing, cyanosis or edema Extremity Narrative: Pedal pulses are 2+ Skin no wounds, skin turgor normal and no jaundice Neuro oriented x3, CN's II-XII intact bilaterally, moves all extremities and no focal motor deficits Neuro Narrative: Clock drawing was performed and was abnormal and that her initial drawing had numbers outside of the clock and inside at the clock and in the inappropriate place. She redid it with better organization however still not accurate, mild to moderate generalized weakness noted with no focal deficits Speech: speech normal Psych affect normal Psych Narrative: Eye contact is good, patient is very pleasant Weight / BMI Weight Weight: 105.7 kg Body Mass Index (BMI) 41.3 ABG / Lab / Microbiology Data 08/25/23 11:55 08/25/23 06:45 Laboratory: Laboratory Results - last 24 hr 08/25/23 06:45: WBC 6.0, RBC 3.13 L, Hgb 9.7 L, Hct 30.0 L, MCV 95.8, MCH 31.0, MCHC 32.3, RDW Std Deviation 46.6 H, RDW Coeff of Abelardo 13.2, Plt Count 198, MPV 9.7, Immature Gran % (Auto) 0.500, Neut % (Auto) 49.3, Lymph % (Auto) 39.5, [place] % (Auto) 8.2, Eos % (Auto) 2.0, Baso % (Auto) 0.5, Absolute Neuts (auto) 2.9, Absolute Lymphs (auto) 2.36, Nucleated RBC % 0, Sodium 139, Potassium 4.3, Chloride 115 H, Carbon Dioxide 18.0 L, Anion Gap 6, BUN 28 H, Creatinine 1.11 H, Estim Creat Clear Calc 51.75, Est GFR (MDRD) Af Amer 62, Est GFR (MDRD) Non-Af 51 L, BUN/Creatinine Ratio 25.2 H, Glucose 127 H, Calcium 9.1, Phosphorus 2.7, Magnesium 1.5 L, Iron 60, TIBC 229 L, Iron Saturation 26.2, Ferritin 84, TSH 5.13 H 08/25/23 11:55: Hgb 10.0 L Microbiology: Microbiology 08/22/23 08:07 Urine Catheter - Catheter Urine Culture - Final ESBL Klebsiella pneumoniae pne Schaalia odontolyticus Radiography Diagnostic Testing: Radiology Impression Brain MRI 08/25/23 08:28 IMPRESSION: 1. No acute intracranial abnormality. 2. Chronic microvascular changes. Electronically Signed: Herbert Cruz MD at 11:47 EDT , D/C Instructions Discharge Diet: Low fat / Low cholesterol Discharge Activity: Return to Normal Activity Meaningful Use Info Meaningful Use Diagnoses (Choose all that apply): None applicable Discharge Plan Admission Admit Date/Time: 08/22/23 12:30 Primary Reason for Your Visit: Acute toxic/metabolic encephalopathy due to dehydration Attending Provider: Florecita Khan Primary Care Provider: Evangelist Henriquez Consulting Providers: Ho Crisostomo Instructions Additional Instructions / Restrictions: 1. Please call [phone] to set up an appointment at [facility] [place]. 2. You were very dehydrated when you came to the emergency department. Please increase your fluid intake to at least 2 L of fluid a day of various substances including water, tea, and juices or Powerade/Gatorade Discharge Orders/Prescriptions Prescriptions: New risperidone [Risperdal] 0.5 mg tablet 0.5 mg PO QHS Qty: 30 0RF Continued omeprazole 20 mg capsule,delayed release(DR/EC) 20 mg PO QHS potassium chloride 10 mEq tablet extended release 20 meq PO DAILY Rx Instructions: Hold if potassium more than 4.5. metoprolol tartrate 25 mg tablet 12.5 mg PO BID Qty: 90 3RF ramipril [Altace] 2.5 mg capsule 2.5 mg PO DAILY Qty: 90 3RF aspirin 81 MG tablet 81 mg PO DAILY cholecalciferol (vitamin D3) 1,250 MCG capsule 1 cap PO SA Patient Comments: TAKE 1 CAPSULE BY MOUTH ONCE A WEEK acetaminophen 500 mg Tablet 1,000 mg PO Q6H PRN (Reason: Pain) escitalopram oxalate [Lexapro] 20 mg tablet 20 mg PO DAILY hydrochlorothiazide 25 mg tablet 25 mg PO DAILY Hold Instructions: Hold for 1 week Eliquis 5 mg tablet 5 mg PO BID Qty: 180 3RF simvastatin 40 mg tablet 40 mg PO QHS Qty: 90 4RF Referrals / Follow Up: Evangelist Henriquez DO [Primary Care Provider] - Within 2 Weeks Disposition Disposition (needs filled in before D/C Order can be placed): Home Health Service Charges/Coding Visit Charges Inpatient E&M: 06498 Disch Hosp >30min
--- NOTE | 2023-08-25 12:40 | CASEMGMT ---
Patient has order for discharge. KAT[facility] HARTLEY called and [facility] Start of care planned for tomorrow. KATIE HARTLEY requested HHC call daughter with scheduled time for next visit. KATIE HARTLEY updated daughter, Kiara. Daughter had no further questions or concerns.
--- NOTE | 2023-08-25 14:30 | CHAPLAIN ---
Type of Pastoral Visit _x__ Initial Visit ___ Follow-up Visit ___ On-call Visit ___ General Patient Visit ___ Spiritual Assessment ___ Family Conference ___ Bereavement ___ Rapid Response ___ Code Blue ___ Other (describe below) Pastoral Care Referral From _x__ Patient ___ Family ___ Nurse ___ Physician ___ Wood Borer ___ Refiner Operator ___ Other (describe below) Sacrament/Intervention _x__ Active listening ___ Anointing ___ Zoroastrianism ___ Bereavement ___ Communion _x__ Amanda exploration ___ ___ Life review _x__ Prayer ___ Reconciliation ___ Sacrament of Sick ___ Supportive presence ___ Wedding ___ Other (describe below) Pastoral Comments patient is very welcoming and talkative; pt expresses beulah in that I came through this hardest day of my life meaning her MRI; pt is waiting on results but expresses beulah in being improved and having that done; pt expresses her amanda in God and that she is trusting God in this situation; pt welcomes a prayer for her support;
[2023-08-25 14:45] VITALS: BP 132/65; PULSE 57; RESP 18; TEMP 36.7; O2SAT 96
--- NOTE | 2023-08-25 15:43 | PHA.DC.MC.R ---
Pharmacy [facility] has performed discharge medication reconciliation and counseling for this patient. Counseled patient's daughter, Erica. Gurrola. RISPERIDONE 0.5MG PO QHS The patient's discharge medication list was reviewed for discrepancies and discrepancies were resolved. The patient was counseled on the following discharge medications and changes in medications for homegoing were reviewed. The Reason for Use, instructions for use, and potential side effects were reviewed for all new medications. The patient's questions regarding all of their medications were answered. The patient was able to verbally demonstrate an understanding of their discharge medications. Medications at Discharge Home Medications aspirin 81 mg tablet,delayed release 81 mg PO DAILY Anticoaglate 08/02/13 omeprazole 20 mg capsule,delayed release 20 mg PO QHS Heartburn 06/22/19 cholecalciferol (vitamin D3) 1,250 mcg (50,000 unit) capsule 1 cap PO SA Ordered by Dr. Henriquez 07/10/19 hydrochlorothiazide 25 mg tablet 25 mg PO DAILY Health 08/09/19 acetaminophen 500 mg tablet 1,000 mg PO Q6H PRN Pain 05/15/21 escitalopram oxalate 20 mg tablet (Lexapro) 20 mg PO DAILY DEPRESSION 05/15/21 potassium chloride 10 mEq tablet,extended release 20 meq PO DAILY Heart health 10/18/21 apixaban 5 mg tablet (Eliquis) 5 mg PO BID Anticoagulant #180 tabs 02/18/23 simvastatin 40 mg tablet 40 mg PO QHS Cholesterol #90 tabs 06/03/23 metoprolol tartrate 25 mg tablet 12.5 mg (1/2 x 25 mg) PO BID B/P #90 tabs 08/18/23 ramipril 2.5 mg capsule (Altace) 2.5 mg PO DAILY #90 caps 08/18/23 risperidone 0.5 mg tablet (Risperdal) 0.5 mg PO QHS #30 tabs 08/25/23
== END 2023-08-25 16:16 | disposition home health service (06) | DRG 682 ==
LOC: ED 09:47 → PCU 12:02
PROVIDERS: Admitting Provider Internal Medicine; Emergency Provider Student in an Organized Health Care Education/Training Program; PCP Student in an Organized Health Care Education/Training Program; Visit Provider Internal Medicine
DX: N17.9 Acute kidney failure, unspecified (principal); G92.8 Other toxic encephalopathy; I13.0 Hypertensive heart and chronic kidney disease with heart failure and stage 1 through stage 4 chronic kidney disease, or unspecified chronic kidney disease; I50.32 Chronic diastolic (congestive) heart failure; Z68.41 Body mass index [BMI] 40.0-44.9, adult; E66.01 Morbid (severe) obesity due to excess calories; I48.0 Paroxysmal atrial fibrillation; G31.84 Mild cognitive impairment of uncertain or unknown etiology; E78.00 Pure hypercholesterolemia, unspecified; J44.9 Chronic obstructive pulmonary disease, unspecified; N18.32 Chronic kidney disease, stage 3b; I25.10 Atherosclerotic heart disease of native coronary artery without angina pectoris; K21.9 Gastro-esophageal reflux disease without esophagitis; E83.42 Hypomagnesemia; G47.33 Obstructive sleep apnea (adult) (pediatric); E87.5 Hyperkalemia; N13.2 Hydronephrosis with renal and ureteral calculous obstruction; R29.6 Repeated falls; Z88.2 Allergy status to sulfonamides; Z95.1 Presence of aortocoronary bypass graft; Z95.5 Presence of coronary angioplasty implant and graft; Z79.01 Long term (current) use of anticoagulants; Z79.82 Long term (current) use of aspirin; Z79.899 Other long term (current) drug therapy; Z87.440 Personal history of urinary (tract) infections
CPT/HCPCS: 36415; 70450; 70553; 72125; 74176; 80048; 81001; 82728; 83540; 83550; 83735; 84100; 84443; 85018; 85025; 87077; 87086; 87088; 87186; 97162; 97166; 97535; 99284; A9575; J7030; A4216

== ENCOUNTER 2024-04-23 09:11 | Emergency (ER) | payer MEDICARE, OTHER, SELFPAY ==
[2024-04-23 09:12] VITALS: BP 151/50; PULSE 64; RESP 22; TEMP 36.9; O2SAT 99; BMI 42.1
[2024-04-23 09:46] LABS: Absolute Lymphocyte Count 2.96 X10^3/uL (0.83-4.51); Absolute Neutrophil Count 5.6 X10^3/uL (2.0-7.7); Basophil# 0.03 X10^3/uL; Basophil% 0.3 % (0-1); Eosinophil# 0.06 X10^3/uL; Eosinophils% 0.6 % (0-5); Hematocrit 35.1 % (37-47); Hemoglobin 11.8 g/dL (12.0-15.0); Lymphocyte # 2.96 X10^3/ul (0.83-4.51); Lymphocyte % 31.6 % (19-41); Mean Corp Hgb Conc 33.6 g/dL (32-36); Mean Corpuscular Hgb 30.1 pg (27.0-32.0); Mean Corpuscular Volume 89.5 fL (81-99); Mean Platelet Vol. 9.7 fl (6.2-12.0); Monocyte# 0.71 X10^3/uL; Monocyte% 7.6 % (0-10); NRBC Flagged by Analyzer 0 % (0-5); Neutrophil # 5.57 X10^3/uL (2.7-7.7); Neutrophil % 59.5 % (47-70); Platelet Count 249 K/mm3 (150-450); RBC Distribution Width CV 12.9 % (11.6-14.6); RBC Distribution Width SD 42.1 fl (35.1-43.9); Red Blood Count 3.92 M/mm3 (4.2-5.4); White Blood Count 9.4 K/mm3 (4.4-11.0)
[2024-04-23 10:08] LABS: Bacteria 0 SEEN /hpf (None Seen); Mucous, Urine 0 SEEN /hpf (<or=2+); Red Blood Cells-Urine 0 SEEN /hpf (0-5); Squamous Epithelial Cells - UA 0 SEEN /hpf (5-10); White Blood Cells 0 SEEN /hpf (0-5)
--- NOTE | 2024-04-23 10:10 | RAD_ITS ---
STUDY: X-RAY CHEST REASON FOR EXAM: Female, 74 years old. Fever and cough TECHNIQUE: PA and lateral views of the chest. COMPARISON: 03/06/2021 FINDINGS: EKG leads overlie the chest The lungs are clear and expanded. There is no demonstrated pleural abnormality. Sternal cerclage wires and vascular clips are present from a prior sternotomy and coronary artery bypass graft procedure (CABG). Normal mediastinum and alban. Normal visualized pulmonary arteries. Normal visualized aortic arch and descending thoracic aorta. There are diffuse degenerative changes of the visualized thoracic spine. Normal visualized ribs, clavicles, and shoulders. There is no demonstrated abnormality of the visualized soft tissue structures of the upper abdomen. RAD/Chest PA and Lateral IMPRESSION: No acute pulmonary process, no interval change Electronically Signed: Chico Bardales MD at 10:23 EST ,
[2024-04-23 10:11] VITALS: BP 156/84; PULSE 59; RESP 20; O2SAT 99
[2024-04-23 10:11] LABS: ALB/GLOB Ratio 0.9 RATIO (0.9-2.4); AST(SGOT) 24 U/L (15-37); Alanine Aminotransfer ALT/SGPT 20 U/L (13-56); Albumin, Serum 3.8 g/dL (3.2-5.0); Alkaline Phosphatase 75 U/L (45-117); Anion Gap 11 (5-15); BUN 37 mg/dL (7-18); BUN/Creat Ratio 24.7 RATIO (10-20); Calcium,Total 9.7 mg/dL (8.5-10.1); Chloride 95 mmol/L (98-107); EST Glomerular Filtration Rate 36 mL/min (>60); Est Glom Filt Rate - Afr Amer 44 mL/min (>60); Estimated Creatinine Clearance 38.18 ml/min; Globulin 4.2 g/dL (2.2-4.2); Glucose 143 mg/dL (74-106); Potassium 3.9 mmol/L (3.5-5.1); Sodium Level 126 mmol/L (136-145)
[2024-04-23 10:18] LABS: Color, Urine Straw (Yellow); Glucose, Dipstick Normal (Normal); Ketone-Dipstick Negative (Negative); Leukocyte Esterase-Dipstick Negative /ul (Negative); Nitrite-Dipstick Negative (Negative); Occult Blood-Urine 10 /ul (Negative); Protein-Dipstick Negative (Negative); Urine Bilirubin Dipstick Negative (Negative); Urine Clarity Clear (Clear); Urine Urobilinogen Normal (Normal)
--- NOTE | 2024-04-23 10:21 | EX.ED.DYSGE1 ---
HPI History of Present Illness Chief Complaint: Alt LOC Detail of Chief Complaint: Delusions Informant: patient and friend Onset/Context/Timing Onset: Days Context: Sudden Onset Timing: Continuous and Waxes and wanes Quality: Seeing and hearing things, recently seen by PCP Location: Generalized Current Severity: Mild Maximum Severity: Moderate Worsened by: Nothing specific Relieved by: Nothing Associated Symptoms Associated Symptoms: None Narrative Narrative: Patient is a 74-year-old female with history of urinary tract infection and delirium with urinary tract infection who was sent to the emergency room because of having delusions. She was told that her UA was negative. There is no history of dementia. She does have history of coronary disease, hyperlipidemia, COPD, obstructive sleep apnea, essential hypertension and paroxysmal atrial fibrillation. She is on apixaban. She denies headache, double vision blurred vision loss of vision. Denies ringing or ears or decreased hearing. Denies trouble with speech or swallowing. She denies Sputum production but does have a slight cough. She also has some mild nasal congestion. She denies abdominal pain or vomiting. She has had 1 loose watery stool per day for the past several days. She has not been on antibiotic recently. No ill contacts. She has not noted blood or mucus in her diarrhea. She denies urologic symptoms. She denies problems with coordination or balance. She denies paresthesia, anesthesia or motor gross upper or lower extremity. Prior similar symptoms: Yes (Diagnosed with urinary tract infection) Recent Illness/Hospitalization: No [facility] Medical History Left renal stone Knee pain Wears glasses Anxiety Post-menopausal Arthritis High cholesterol Gastric reflux Non-smoker Shortness of breath on exertion History of edema History of echocardiogram History of stress test Cardiology follow-up encounter History of atrial fibrillation GERD (gastroesophageal reflux disease) CPAP (continuous positive airway pressure) dependence Sleep apnea Asthma DVT (deep venous thrombosis) Hydronephrosis Paroxysmal atrial fibrillation Morbid obesity Stage 3b chronic kidney disease (CKD) Microcalcification of right breast on mammogram Erythematous bladder mucosa Left renal stone Kidney stone Essential hypertension Atherosclerotic heart disease of [place] coronary artery without angina pectoris TATIANA (obstructive sleep apnea) Hemorrhoids Depression Atherosclerosis of coronary 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 Chronic diastolic (congestive) heart failure Nonspecific abnormal unspecified cardiovascular function study Abnormal pulmonary function test Obesity TATIANA (obstructive sleep apnea) COPD (chronic obstructive pulmonary disease) Hyperlipidemia Home Medications ?Medication ?Instructions ?Recorded ?Last Taken ?Type aspirin 81 mg tablet,delayed 81 mg PO DAILY Anticoaglate 08/02/13 08/22/23 History release omeprazole 20 mg capsule,delayed 20 mg PO QHS Heartburn 06/22/19 08/21/23 History release cholecalciferol (vitamin D3) 1,250 1 cap PO SA Ordered by Dr. Henriquez 07/10/19 08/16/23 History mcg (50,000 unit) capsule hydrochlorothiazide 25 mg tablet 25 mg PO DAILY Health 08/09/19 08/22/23 History acetaminophen 500 mg tablet 1,000 mg PO Q6H PRN Pain 05/15/21 08/08/23 History escitalopram oxalate 20 mg tablet 20 mg PO DAILY DEPRESSION 05/15/21 08/21/23 History (Lexapro) potassium chloride 10 mEq 20 meq PO DAILY Heart health 10/18/21 08/22/23 History tablet,extended release simvastatin 40 mg tablet 40 mg PO QHS Cholesterol #90 tabs 06/03/23 08/21/23 Rx ramipril 2.5 mg capsule (Altace) 2.5 mg PO DAILY #90 caps 08/18/23 08/22/23 Rx metoprolol tartrate 25 mg tablet 12.5 mg (1/2 x 25 mg) PO BID B/P 10/02/23 Unknown Rx #90 tabs furosemide 40 mg tablet (Lasix) 40 mg PO DAILY PRN edema #30 tabs 01/28/24 Unknown Rx apixaban 5 mg tablet (Eliquis) 5 mg PO BID Anticoagulant #180 tabs 02/16/24 Unknown Rx Allergy/AdvReac Type Severity Reaction Status Date / Time acetaminophen (From Vicodin) Allergy Intermediate Hives Verified 04/23/24 09:21 fluoxetine (From Prozac) Allergy Intermediate Nausea Verified 04/23/24 09:21 hydrocodone (From Vicodin) Allergy Intermediate Hives Verified 04/23/24 09:21 promethazine (From Phenergan) Allergy Intermediate Itching Verified 04/23/24 09:21 sulfamethoxazole (From AdvReac Severe renal Verified 04/23/24 09:21 Bactrim) failure trimethoprim (From Bactrim) AdvReac Severe renal Verified 04/23/24 09:21 failure Family History Father Colon cancer Mother Cancer lung Other Gastric reflux Surgical History History of cardiac catheterization History of cystoscopy History of cholecystectomy History of coronary artery stent placement History of lithotripsy Hx of CABG Postsurgical aortocoronary bypass status Postsurgical percutaneous transluminal coronary angioplasty (PTCA) status S/P coronary artery stent placement (~05/28/16) Social History household members: none housing: apartment pets and animals: Yes pets and animals: dog(s) Smoking Status: Never smoker alcohol intake: never substance use type: does not use ROS ROS ED Constitutional Constitutional ED: Denies chills, fever(s), subjective or sweats Eyes Eyes: Denies blurry vision or change in vision ENT ENT ED: Reports rhinorrhea; Denies ear pain or sore throat Cardiovascular Cardiovascular: Denies chest pain, orthopnea, palpitations, paroxysmal nocturnal dyspnea or racing heartbeat Respiratory/Chest Respiratory/Chest: Reports cough; Denies dyspnea, dyspnea on exertion, orthopnea, paroxysmal nocturnal dyspnea or sputum Gastrointestinal Gastrointestinal: Reports diarrhea; Denies abdominal pain, nausea or vomiting Genitourinary Genitourinary ED: Denies dysuria, hematuria or urinary frequency Musculoskeletal Musculoskeletal: Denies back pain or neck pain Integumentary Denies rash Neurologic Neurologic: Denies headache(s) or weakness Hematologic/Lymphatic Hematologic/Lymphatic: Reports systems reviewed and no addt'l complaints, except as documented EXAM Physical Exam Const Vital Signs: 04/23/24 09:12 04/23/24 10:11 04/23/24 11:04 Temperature 98.5 F Temperature Source Oral Pulse Rate 64 59 L 62 Respiratory Rate 22 H 20 H 18 Blood Pressure 151/50 H 156/84 H 167/105 H Blood Pressure Mean 83 108 125 Pulse Ox 99 99 97 Oxygen Delivery Method Room Air Room Air Room Air 04/23/24 12:00 Temperature Temperature Source Pulse Rate 56 L Respiratory Rate 15 Blood Pressure 115/96 H Blood Pressure Mean 102 Pulse Ox 99 Oxygen Delivery Method Room Air Positive well nourished and well developed Constitutional Narrative: Vitals are marked for elevated blood pressure. She is a pleasant woman who appears in no distress. General Appearance ED: well developed and NAD; Negative for pallor HEENT Reports moist mucous membranes HEENT Narrative: Head is atraumatic no cephalic. Ears normal. Nares patent. Posterior pharynx is normal. Eyes PERRL and EOMs intact bilaterally General Eye ED: Negative for pale conjunctiva or scleral icterus Neck no lymphadenopathy, supple and no JVD Resp normal respiratory effort and clear to auscultation bilaterally Cardio regular rate, regular rhythm, S1 normal heart sound, S2 normal heart sound and no murmurs GI normal to inspection, nondistended, normoactive bowel sounds, non-tender, non-distended and no masses; Negative for hepatosplenomegaly Back/Spine no CVA tenderness Extremity normal to inspection General Extremety ED: Negative for tenderness Neuro oriented x3, CN's II-XII intact bilaterally and no sensory deficits noted Sensorium / Orientation: alert Motor Exam: strength 5/5 throughout Psych mental status grossly normal Skin no rashes or lesions noted and no wounds General Skin Exam: Negative for jaundice or pallor MDM MDM MDM Narrative Medical decision making narrative: Will reassess urine. CBC to assess white count and differential. With history of stage III kidney disease electrolyte panel was obtained to assess renal function, electrolytes. History & Record Review Additional record(s) reviewed:: Prior outpatient record (MRI March of this year was performed because of problems with balance. This revealed no acute intracranial process. There was chronic microvascular changes noted. This would raise possibility of been no delusions due to undiagnosed vascular disease i.e. dementia.) Lab Data Attestation: I reviewed the patient's lab results. Lab results narrative: CBC reveals anemia with normal indices. Electrolytes reveal hyponatremia and hypochloremia probably due to the fact he is on hydrochlorothiazide. Will need to ask when her dose was increased. Glucose is 143 with a normal CO2 anion gap. BUN to creatinine ratio is elevated at 25-1. Creatinine is 1.5 which is her baseline with an estimated GFR of 2 36. Labs: Laboratory Results - last 24 hr 04/23/24 04/23/24 09:03 10:02 WBC 9.4 RBC 3.92 L Hgb 11.8 L Hct 35.1 L MCV 89.5 MCH 30.1 MCHC 33.6 RDW Std Deviation 42.1 RDW Coeff of Abelardo 12.9 Plt Count 249 MPV 9.7 Immature Gran % (Auto) 0.400 Neut % (Auto) 59.5 Lymph % (Auto) 31.6 Graves % (Auto) 7.6 Eos % (Auto) 0.6 Baso % (Auto) 0.3 Absolute Neuts (auto) 5.6 Absolute Lymphs (auto) 2.96 Nucleated RBC % 0 Sodium 126 L Potassium 3.9 Chloride 95 L Carbon Dioxide 21.0 Anion Gap 11 BUN 37 H Creatinine 1.50 H Estim Creat Clear Calc 38.18 Est GFR (MDRD) Af Amer 44 L Est GFR (MDRD) Non-Af 36 L BUN/Creatinine Ratio 24.7 H Glucose 143 H Calcium 9.7 Total Bilirubin 0.60 AST 24 ALT 20 Alkaline Phosphatase 75 Total Protein 8.0 Albumin 3.8 Globulin 4.2 Albumin/Globulin Ratio 0.9 Urine Color Straw Urine Clarity Clear Urine pH 6.0 Ur Specific [place] 1.010 Urine Protein Negative Urine Glucose (UA) Normal Urine Ketones Negative Urine Occult Blood 10 H Urine Nitrite Negative Urine Bilirubin Negative Urine Urobilinogen Normal Ur Leukocyte Esterase Negative Urine RBC 0 SEEN Urine WBC 0 SEEN Ur Squamous Epith Cells 0 SEEN Urine Bacteria 0 SEEN Urine Mucus 0 SEEN Radiography Chest X-Ray - ED: 2 View, Read by ED Physician ([id number]), Unchanged, Heart, Mediastinum, Bony Structures, No Acute Disease and Chronic Changes Diagnostic Testing: Clinical Impression(s) from Imaging Studies Chest X-Ray 04/23/24 10:10 IMPRESSION: No acute pulmonary process, no interval change Electronically Signed: Chico Bardales MD at 10:23 EST Reading Location ID and State: [facility] / [place] , Service support , Treatment and Re-Evaluation :: Spoke with patient and daughter. Her dose of hydrochlorothiazide has not been increasing 25-50. In light of the fact that she is hyponatremic we will call Dr. Henriquez and recommend decreasing her dose hydrochlorothiazide. Daughter also informed that she has been taking diphenhydramine to help her sleep. This could be a reason why she is having hallucinations and trouble sleeping since Benadryl/diphenhydramine is not a good sleeping aid and does affect REM sleep. Also affects delta. She also has evidence of vascular disease based on MRI that was performed July of this year. Patient's hyponatremia is due to increased water intake. Daughter states she has been drinking a lot of water since she became ill on Friday. This would explain the hyponatremia. This is not the cause of her delusions. Suspect her delusions are due to diphenhydramine and this is affecting her sleep. Discharge Plan Triage Chief Complaint: Alt LOC ED Provider: Brandyn Berg Dx/Rx/DC Orders Clinical Impression: Hallucination, drug-induced, S/P coronary artery stent placement, TATIANA (obstructive sleep apnea), Hyperlipidemia, Paroxysmal A-fib, Insomnia, Elevated blood pressure reading with diagnosis of hypertension, Hyponatremia Instructions: ED Drug Reaction, Other, ED Hyponatremia Prescriptions: No Action omeprazole 20 mg capsule,delayed release(DR/EC) 20 mg PO QHS potassium chloride 10 mEq tablet extended release 20 meq PO DAILY Rx Instructions: Hold if potassium more than 4.5. ramipril [Altace] 2.5 mg capsule 2.5 mg PO DAILY Qty: 90 3RF furosemide [Lasix] 40 mg tablet 40 mg PO DAILY PRN (Reason: edema) Qty: 30 0RF Rx Instructions: use for 5 days, then as needed for swelling aspirin 81 MG tablet 81 mg PO DAILY cholecalciferol (vitamin D3) 1,250 MCG capsule 1 cap PO SA Patient Comments: TAKE 1 CAPSULE BY MOUTH ONCE A WEEK acetaminophen 500 mg Tablet 1,000 mg PO Q6H PRN (Reason: Pain) escitalopram oxalate [Lexapro] 20 mg tablet 20 mg PO DAILY hydrochlorothiazide 25 mg tablet 25 mg PO DAILY simvastatin 40 mg tablet 40 mg PO QHS Qty: 90 4RF metoprolol tartrate 25 mg tablet 12.5 mg PO BID Qty: 90 3RF Eliquis 5 mg tablet 5 mg PO BID Qty: 180 3RF Primary Care Provider: Evangelist Henriquez Referrals: Evangelist Henriquez DO [Primary Care Provider] - Activity Restrictions/Additional Instructions: Do not take the diphenhydramine to help you sleep. This can affect your sleep and you do not get effective sleep. This could be the cause of your delusions and hallucinations. You need to reduce the amount of water you are drinking. This is causing your sodium to be low. Stop taking the diphenhydramine Contact Dr. Henriquez's office for blood work to be done in 3 to 5 days Print Language: Turkmen Disposition Disposition: Home, Self Care
[2024-04-23 11:04] VITALS: BP 167/105; PULSE 62; RESP 18; O2SAT 97
[2024-04-23 12:00] VITALS: BP 115/96; PULSE 56; RESP 15; O2SAT 99
[2024-04-23] MEDS: Aspirin 325 MG Tablet PO (12:29)
[2024-04-23 13:31] VITALS: BP 134/86; PULSE 64; RESP 16; TEMP 36.6; O2SAT 98
== END 2024-04-23 13:31 | disposition home or self-care (01) ==
PROVIDERS: Emergency Provider Emergency Medicine; PCP Student in an Organized Health Care Education/Training Program; Visit Provider Emergency Medicine
DX: R44.3 Hallucinations, unspecified (principal); I13.0 Hypertensive heart and chronic kidney disease with heart failure and stage 1 through stage 4 chronic kidney disease, or unspecified chronic kidney disease; I50.32 Chronic diastolic (congestive) heart failure; J44.9 Chronic obstructive pulmonary disease, unspecified; I48.0 Paroxysmal atrial fibrillation; N18.32 Chronic kidney disease, stage 3b; T45.0X5A Adverse effect of antiallergic and antiemetic drugs, initial encounter; I25.10 Atherosclerotic heart disease of native coronary artery without angina pectoris; E87.8 Other disorders of electrolyte and fluid balance, not elsewhere classified; E78.5 Hyperlipidemia, unspecified; D64.9 Anemia, unspecified; E87.1 Hypo-osmolality and hyponatremia; K21.9 Gastro-esophageal reflux disease without esophagitis; G47.00 Insomnia, unspecified; G47.33 Obstructive sleep apnea (adult) (pediatric); M19.90 Unspecified osteoarthritis, unspecified site; Z88.1 Allergy status to other antibiotic agents; Z95.1 Presence of aortocoronary bypass graft; Z88.2 Allergy status to sulfonamides; Z87.19 Personal history of other diseases of the digestive system; Z79.01 Long term (current) use of anticoagulants; Z79.82 Long term (current) use of aspirin; Z79.899 Other long term (current) drug therapy; Z86.718 Personal history of other venous thrombosis and embolism; Z87.440 Personal history of urinary (tract) infections; Z90.49 Acquired absence of other specified parts of digestive tract
CPT/HCPCS: 71046; 80053; 81001; 85025; 99285

== ENCOUNTER 2024-07-24 10:51 | Inpatient (IN) | payer MEDICARE, OTHER, SELFPAY ==
[2024-07-24] VITALS (13 sets, daily range): BP systolic 120–163; BP diastolic 57–89; PULSE 58–87; RESP 16–19; TEMP 36.6–36.9; O2SAT 93–100; BMI 42.6; BMI 41.5; BMI 41.7
--- NOTE | 2024-07-24 11:03 | ED.RN ---
PTS DAUGHTER AT THE BEDSIDE. PT HAS HAD MULTIPLE FALLS, RECENT RIB FX, USUALLY LIVES ALONE AT HOME BUT SINCE THE RECENT INJURY AND TREATMENT FOR YEAST INFECTION HAS STAYED WITH HER TWO DAUGHTERS.
--- NOTE | 2024-07-24 11:07 | CT_ITS ---
EXAM: BRAIN/HEAD WITHOUT CONTRAST CLINICAL HISTORY: Falls COMPARISON: 08/25/2023 TECHNIQUE: Noncontrast images of the head with multiplanar reconstructions. Dose reduction techniques were used including intermediate exposure control (AEC),iterative reconstruction technique, and/or mA and/or KV dose adjustments based on patient's size. FINDINGS: CT HEAD FINDINGS: No acute intracranial hemorrhage, mass, mass effect, midline shift or pathologic extra-axial fluid collection. Nonspecific periventricular white matter changes are noted. No hydrocephalus. Age- appropriate cerebral volume and white matter. Visualized paranasal sinuses and mastoid air cells are clear. The calvarium is grossly intact. CT/Brain/Head without Contrast IMPRESSION: 1. No CT evidence of acute intracranial pathology. 2. Age-appropriate volume loss and remote small vessel ischemic changes. Reading Location: [facility]
--- NOTE | 2024-07-24 11:07 | EKG12_ITS ---
Test Reason : WEAKNESS Blood Pressure : */* mmHG Vent. Rate : 54 BPM Atrial Rate : 54 BPM P-R Int : 184 ms QRS Dur : 160 ms QT Int : 508 ms P-R-T Axes : -10 -41 -41 degrees QTcB Int : 481 ms Sinus bradycardia with Premature atrial complexes with Aberrant conduction Left axis deviation Left bundle branch block Abnormal ECG Confirmed by Mike Art ([id number]), video news editor DANG GOULD ([id number]) on 07/26/2024 10:17:20 AM Referred By: Confirmed By: Mike Art
[2024-07-24 11:19] LABS: Absolute Lymphocyte Count 2.38 X10^3/uL (0.83-4.51); Absolute Neutrophil Count 4.6 X10^3/uL (2.0-7.7); Basophil# 0.03 X10^3/uL; Basophil% 0.4 % (0-1); Eosinophil# 0.15 X10^3/uL; Eosinophils% 1.9 % (0-5); Hemoglobin 10.4 g/dL (12.0-15.0); Lymphocyte # 2.38 X10^3/ul (0.83-4.51); Lymphocyte % 30.2 % (19-41); Mean Corp Hgb Conc 32.5 g/dL (32-36); Mean Corpuscular Hgb 31.6 pg (27.0-32.0); Mean Corpuscular Volume 97.3 fL (81-99); Mean Platelet Vol. 9.7 fl (6.2-12.0); Monocyte# 0.71 X10^3/uL; NRBC Flagged by Analyzer 0 % (0-5); Neutrophil # 4.59 X10^3/uL (2.7-7.7); Neutrophil % 58.1 % (47-70); Platelet Count 233 K/mm3 (150-450); RBC Distribution Width CV 13.9 % (11.6-14.6); RBC Distribution Width SD 50.1 fl (35.1-43.9); Red Blood Count 3.29 M/mm3 (4.2-5.4); White Blood Count 7.9 K/mm3 (4.4-11.0)
--- NOTE | 2024-07-24 11:22 | EX.ED.DYSGE1 ---
HPI <ELMIRA Lyn - Last Filed: 07/24/24 12:46> History of Present Illness Chief Complaint: Weakness Narrative Narrative: 74-year-old female with PMH of HTN, HLD, COPD, A-fib on Eliquis was brought in by her daughter for recurrent falls and intermittent confusion. The patient has had increasing falls over the last year. She fell 2 weeks ago injuring her right ribs and a week later was seen in her primary care's office and diagnosed with 2 right rib fractures and a UTI and an abdominal fold yeast infection. She completed Keflex about 5 days ago and is using nystatin powder. Due to her fall she moved in with her daughter but had several falls there as well. Sometimes she falls because her rollator moves too quickly. Another time she fell because her daughter's dog opened the door and it bumped her. She may have hit her head a few days ago but denies loss of consciousness. Her daughter states she was taking Ultram for the rib pain but is still not sleeping well and thinks that is contributing to her intermittent confusion. She thinks she needs placement. Since she injured her ribs she also feels short of breath with walking. She has also had 1 month of increased bilateral leg edema. She is on hydrochlorothiazide. She saw Dr. Huerta in the past and is scheduled to see Dr. Art next month. PFS <ELMIRA Lyn - Last Filed: 07/24/24 12:46> [facility] Medical History Left renal stone Knee pain Wears glasses Anxiety Post-menopausal Arthritis High cholesterol Gastric reflux Non-smoker Shortness of breath on exertion History of edema History of echocardiogram History of stress test Cardiology follow-up encounter History of atrial fibrillation GERD (gastroesophageal reflux disease) CPAP (continuous positive airway pressure) dependence Sleep apnea Asthma DVT (deep venous thrombosis) Hydronephrosis Paroxysmal atrial fibrillation Morbid obesity Stage 3b chronic kidney disease (CKD) Microcalcification of right breast on mammogram Erythematous bladder mucosa Left renal stone Kidney stone Essential hypertension Atherosclerotic heart disease of [place] coronary artery without angina pectoris TATIANA (obstructive sleep apnea) Hemorrhoids Depression Atherosclerosis of coronary 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 Chronic diastolic (congestive) heart failure Nonspecific abnormal unspecified cardiovascular function study Abnormal pulmonary function test Obesity TATIANA (obstructive sleep apnea) COPD (chronic obstructive pulmonary disease) Hyperlipidemia Home Medications ?Medication ?Instructions ?Recorded ?Last Taken ?Type aspirin 81 mg tablet,delayed 81 mg PO DAILY Anticoaglate 08/02/13 07/24/24 History release omeprazole 20 mg capsule,delayed 20 mg PO QHS Heartburn 06/22/19 07/23/24 History release cholecalciferol (vitamin D3) 1,250 1 cap PO SA Ordered by Dr. Henriquez 07/10/19 07/24/24 History mcg (50,000 unit) capsule acetaminophen 500 mg tablet 1,000 mg PO Q6H PRN Pain 05/15/21 07/24/24 History escitalopram oxalate 20 mg tablet 20 mg PO DAILY DEPRESSION 05/15/21 07/24/24 History (Lexapro) potassium chloride 10 mEq 20 meq PO DAILY Heart health 10/18/21 07/24/24 History tablet,extended release metoprolol tartrate 25 mg tablet 12.5 mg (1/2 x 25 mg) PO BID B/P 10/02/23 07/24/24 Rx #90 tabs apixaban 5 mg tablet (Eliquis) 5 mg PO BID Anticoagulant #180 tabs 02/16/24 07/24/24 Rx simvastatin 40 mg tablet 40 mg PO QHS Cholesterol #90 tabs 07/20/24 07/23/24 Rx hydrochlorothiazide 25 mg tablet 50 mg PO DAILY Health 07/21/24 07/24/24 History ramipril 2.5 mg capsule (Altace) 2.5 mg PO DAILY #90 caps 07/21/24 07/24/24 Rx Allergy/AdvReac Type Severity Reaction Status Date / Time acetaminophen (From Vicodin) Allergy Intermediate Hives Verified 07/24/24 11:05 fluoxetine (From Prozac) Allergy Intermediate Nausea Verified 07/24/24 11:05 hydrocodone (From Vicodin) Allergy Intermediate Hives Verified 07/24/24 11:05 promethazine (From Phenergan) Allergy Intermediate Itching Verified 07/24/24 11:05 sulfamethoxazole (From AdvReac Severe renal Verified 07/24/24 11:05 Bactrim) failure trimethoprim (From Bactrim) AdvReac Severe renal Verified 07/24/24 11:05 failure Family History Father Colon cancer Mother Cancer lung Other Gastric reflux Surgical History History of cardiac catheterization History of cystoscopy History of cholecystectomy History of coronary artery stent placement History of lithotripsy Hx of CABG Postsurgical aortocoronary bypass status Postsurgical percutaneous transluminal coronary angioplasty (PTCA) status S/P coronary artery stent placement (~05/28/16) Social History household members: none housing: apartment pets and animals: Yes pets and animals: dog(s) Smoking Status: Never smoker alcohol intake: never substance use type: does not use ROS <ELMIRA Lyn - Last Filed: 07/24/24 12:46> ROS ED ROS Narrative Constitutional: Negative for fever, chills, malaise. CVS: Negative for chest. Respiratory: Negative for cough. GI: Negative for abdominal pain, nausea, vomiting, diarrhea. : Negative for dysuria. Neuro: Negative for headache. EXAM <ELMIRA Lyn - Last Filed: 07/24/24 12:46> Physical Exam Narrative Exam Narrative: CONST: Patient sitting in no acute distress. EYES: Normal inspection. NECK: Normal inspection. RESP: No respiratory distress, CTAB. CVS: Regular rate and rhythm, no murmur, no gallop. ABD: Soft and nontender, no guarding or rebound, nondistended. SKIN: Color normal, no rash, warm, dry, intact. EXTREMITIES: Bilateral pitting edema of both lower legs. NEURO: Alert and oriented x 4, answering questions appropriately but then talks about tangential stories. PSYCH: Normal affect. Const Vital Signs: 07/24/24 10:51 07/24/24 10:54 07/24/24 11:00 Temperature 98.3 F 98.0 F Temperature Source Temporal Oral Pulse Rate 59 L 63 Respiratory Rate 16 17 Respiratory Effort Normal Respiratory Pattern Normal Blood Pressure 141/58 H 141/58 H Blood Pressure Mean 85 85 Pulse Ox 100 99 Oxygen Delivery Method Room Air Room Air 07/24/24 11:51 07/24/24 11:54 07/24/24 12:00 Temperature 98.5 F Temperature Source Oral Pulse Rate 87 78 87 Respiratory Rate 16 18 Respiratory Effort Respiratory Pattern Blood Pressure 120/81 H 135/89 H 135/87 H Blood Pressure Mean 94 104 103 Pulse Ox 96 96 96 Oxygen Delivery Method 07/24/24 12:00 07/24/24 12:50 07/24/24 13:00 Temperature 98.3 F 98.3 F 98.3 F Temperature Source Oral Oral Pulse Rate 78 78 67 Respiratory Rate 19 H 19 H 18 Respiratory Effort Respiratory Pattern Blood Pressure 128/78 H 128/78 H 157/89 H Blood Pressure Mean 94 94 111 Pulse Ox 96 96 98 Oxygen Delivery Method <Todd Kasper MD - Last Filed: 07/24/24 13:20> Physical Exam Const Vital Signs: 07/24/24 10:51 07/24/24 10:54 07/24/24 11:00 Temperature 98.3 F 98.0 F Temperature Source Temporal Oral Pulse Rate 59 L 63 Respiratory Rate 16 17 Respiratory Effort Normal Respiratory Pattern Normal Blood Pressure 141/58 H 141/58 H Blood Pressure Mean 85 85 Pulse Ox 100 99 Oxygen Delivery Method Room Air Room Air 07/24/24 11:51 07/24/24 11:54 07/24/24 12:00 Temperature 98.5 F Temperature Source Oral Pulse Rate 87 78 87 Respiratory Rate 16 18 Respiratory Effort Respiratory Pattern Blood Pressure 120/81 H 135/89 H 135/87 H Blood Pressure Mean 94 104 103 Pulse Ox 96 96 96 Oxygen Delivery Method 07/24/24 12:00 07/24/24 12:50 07/24/24 13:00 Temperature 98.3 F 98.3 F 98.3 F Temperature Source Oral Oral Pulse Rate 78 78 67 Respiratory Rate 19 H 19 H 18 Respiratory Effort Respiratory Pattern Blood Pressure 128/78 H 128/78 H 157/89 H Blood Pressure Mean 94 94 111 Pulse Ox 96 96 98 Oxygen Delivery Method MDM <ELMIRA Lyn - Last Filed: 07/24/24 12:46> MDM MDM Narrative Medical decision making narrative: History gathered from: Patient, daughter Differential includes but not limited to pneumonia, UTI, electrolyte abnormality, intracranial hemorrhage, cardiac etiology 74-year-old female with history of A-fib on Eliquis presents with gradual decline with recurrent falls, recent right-sided rib fractures complicating her sleep, and recent UTI. Her family reached the point they are unable to care for her safely at home. Patient is awake and alert with no focal neurological deficits. Her heart is regular rate and rhythm and lungs are clear. Exam is notable for bilateral lower extremity edema. Labs show normal white count of 7.9. Hemoglobin of 10.4 stable. BMP shows normal electrolytes and creatinine 1.50 is at baseline. Troponin is 955. EKG shows sinus bradycardia at 54 bpm with PACs with aberrant conduction. There is LBBB which was present on her stress test on 08/05/2022.BNP is 1359. CXR shows cardiomegaly and pulmonary congestion. Patient states she has been seeing [facility] cardiology ELMIRA and is scheduled to see Dr. Art next month. I consulted Dr. Lee who recommended to hold Eliquis and give her heparin on the floor and repeat and echocardiogram. Her CT brain shows no acute findings. The straight catheter urine is consistent with UTI. Recent urine culture on 08/22/2023 showed ESBL Klebsiella pneumoniae and [place] odontolyticus. I discussed the case with the hospitalist and went over the urine sensitivity and ordered cefepime. All these findings were explained to the patient and her daughter and she was admitted to the PCU in stable condition. External records reviewed: Cardiology visit on 01/28/2024 with ELMIRA Kirk CABG 1998, stenting in 2011, 2014, 2015. Stress test in 2022 demonstrated portions of ischemia in the inferior and apical segments. Plan was to monitor and treat with medical management. Lab Data Attestation: I reviewed the patient's lab results. Labs: Laboratory Results - last 24 hr 07/24/24 07/24/24 11:05 11:45 WBC 7.9 RBC 3.29 L Hgb 10.4 L Hct 32.0 L MCV 97.3 MCH 31.6 MCHC 32.5 RDW Std Deviation 50.1 H RDW Coeff of Abelardo 13.9 Plt Count 233 MPV 9.7 Immature Gran % (Auto) 0.400 Neut % (Auto) 58.1 Lymph % (Auto) 30.2 Wake % (Auto) 9.0 Eos % (Auto) 1.9 Baso % (Auto) 0.4 Absolute Neuts (auto) 4.6 Absolute Lymphs (auto) 2.38 Nucleated RBC % 0 Sodium 138 Potassium 4.2 Chloride 106 Carbon Dioxide 27.0 Anion Gap 6 BUN 45 H Creatinine 1.50 H Estim Creat Clear Calc 36.45 Est GFR (MDRD) Af Amer 44 L Est GFR (MDRD) Non-Af 36 L BUN/Creatinine Ratio 30.0 H Glucose 128 H Calcium 9.6 Troponin I High Sens 955 H* B-Natriuretic Peptide 1359.1 H Urine Color Yellow Urine Clarity Sl. Cloudy Urine pH 6.5 Ur Specific Blakeslee 1.010 Urine Protein 15 H Urine Glucose (UA) Normal Urine Ketones Negative Urine Occult Blood 50 H Urine Nitrite Positive H Urine Bilirubin Negative Urine Urobilinogen Normal Ur Leukocyte Esterase 500 H Urine RBC 5-10 SEEN Urine WBC 50-100 SEEN Ur Squamous Epith Cells 0 SEEN Urine Bacteria 4+ Urine Mucus 0 SEEN Radiography Diagnostic Testing: Clinical Impression(s) from Imaging Studies Brain CT 07/24/24 11:[address]: [address] evidence of acute intracranial pathology. 2. Age-appropriate volume loss and remote small vessel ischemic changes. Reading Location: [facility] Chest X-Ray 07/24/24 11:30 IMPRESSION: Cardiomegaly with pulmonary vascular congestion. Reading Location: [facility] ED attending interpretation of 2 view chest x-ray shows cardiomegaly, some pulmonary congestion. <Todd Kasper MD - Last Filed: 07/24/24 13:20> [facility] Lab Data Labs: Laboratory Results - last 24 hr 07/24/24 07/24/24 11:05 11:45 WBC 7.9 RBC 3.29 L Hgb 10.4 L Hct 32.0 L MCV 97.3 MCH 31.6 MCHC 32.5 RDW Std Deviation 50.1 H RDW Coeff of Abelardo 13.9 Plt Count 233 MPV 9.7 Immature Gran % (Auto) 0.400 Neut % (Auto) 58.1 Lymph % (Auto) 30.2 Wake % (Auto) 9.0 Eos % (Auto) 1.9 Baso % (Auto) 0.4 Absolute Neuts (auto) 4.6 Absolute Lymphs (auto) 2.38 Nucleated RBC % 0 Sodium 138 Potassium 4.2 Chloride 106 Carbon Dioxide 27.0 Anion Gap 6 BUN 45 H Creatinine 1.50 H Estim Creat Clear Calc 36.45 Est GFR (MDRD) Af Amer 44 L Est GFR (MDRD) Non-Af 36 L BUN/Creatinine Ratio 30.0 H Glucose 128 H Calcium 9.6 Troponin I High Sens 955 H* B-Natriuretic Peptide 1359.1 H Urine Color Yellow Urine Clarity Sl. Cloudy Urine pH 6.5 Ur Specific [place]akes[place] 1.010 Urine Protein 15 H Urine Glucose (UA) Normal Urine Ketones Negative Urine Occult Blood 50 H Urine Nitrite Positive H Urine Bilirubin Negative Urine Urobilinogen Normal Ur Leukocyte Esterase 500 H Urine RBC 5-10 SEEN Urine WBC 50-100 SEEN Ur Squamous Epith Cells 0 SEEN Urine Bacteria 4+ Urine Mucus 0 SEEN Radiography Diagnostic Testing: Clinical Impression(s) from Imaging Studies Brain CT 07/24/24 11:[address]: [address] evidence of acute intracranial pathology. 2. Age-appropriate volume loss and remote small vessel ischemic changes. Reading Location: [facility] Chest X-Ray 07/24/24 11:30 IMPRESSION: Cardiomegaly with pulmonary vascular congestion. Reading Location: [facility] Management Discussion w/another healthcare provider: Hospitalist and [employer] Treatment and Re-Evaluation :: Dr. Kasper: I have personally performed a face to face assessment of the patient and have reviewed the MICHELLE Note. I performed a substantive portion of the visit including all aspects of the following. My fernandez findings include: History is generalized weakness, frequent falls. Used to live alone, moved in with daughter, but still weak. Recent fall diagnosed with rib fractures on the right. Reported generalized weakness and confusion per daughter. Exam is afebrile. Vital signs noted. Nontoxic-appearing. Cardiovascular examination reveals a regular rate and rhythm. Lungs clear to auscultation bilaterally. Abdomen soft and nontender with positive bowel sounds. No guarding or rebound. Awake, alert, oriented. Medical Decision Making: Check labs. Check UA. Antibiotics for UTI. Troponin elevated with history of chronic kidney disease. No current chest pain. Discussed with cardiology. Stop Eliquis and start heparin. Discussed with hospitalist for admission. Other additions or changes: [None] Discharge Plan Triage Chief Complaint: Weakness ED Midlevel Provider: Maricruz Benavides ED Provider: Todd Kasper Dx/Rx/DC Orders Clinical Impression: Acute UTI, Recurrent falls, History of fractured rib, Dyspnea on exertion, Non-ST elevation MD (NSTEMI), Congestive heart failure, Altered mental status Primary Care Provider: Evangelist Henriquez
--- NOTE | 2024-07-24 11:30 | RAD_ITS ---
PROCEDURE: CHEST PA AND LATERAL REASON FOR EXAM: Wheezing TECHNIQUE: Frontal and lateral views of the chest. COMPARISON: 04/23/2024 FINDINGS: Heart size is mildly enlarged. The mediastinal contour is unremarkable. Pulmonary vasculature is congested. The bones are unremarkable. RAD/Chest PA and Lateral IMPRESSION: Cardiomegaly with pulmonary vascular congestion. Reading Location: [facility]
[2024-07-24 11:37] LABS: Anion Gap 6 (5-15); BUN 45 mg/dL (7-18); Calcium,Total 9.6 mg/dL (8.5-10.1); Chloride 106 mmol/L (98-107); EST Glomerular Filtration Rate 36 mL/min (>60); Est Glom Filt Rate - Afr Amer 44 mL/min (>60); Estimated Creatinine Clearance 36.45 ml/min; Glucose 128 mg/dL (74-106); Potassium 4.2 mmol/L (3.5-5.1); Sodium Level 138 mmol/L (136-145); Troponin-I HS 955 pg/mL (3.0-54.0)
[2024-07-24 12:03] LABS: Mucous, Urine 0 SEEN /hpf (<or=2+); Squamous Epithelial Cells - UA 0 SEEN /hpf (5-10)
[2024-07-24 12:10] LABS: Color, Urine Yellow (Yellow); Glucose, Dipstick Normal (Normal); Ketone-Dipstick Negative (Negative); Leukocyte Esterase-Dipstick 500 /ul (Negative); Nitrite-Dipstick Positive (Negative); Occult Blood-Urine 50 /ul (Negative); Protein-Dipstick 15 mg/dl (Negative); Urine Bilirubin Dipstick Negative (Negative); Urine Clarity Sl. Cloudy (Clear); Urine Urobilinogen Normal (Normal); Urine pH 6.5 (5.0 - 8.0)
[2024-07-24 12:20] LABS: Bacteria 4+ /hpf (None Seen); White Blood Cells 50-100 SEEN /hpf (0-5)
[2024-07-24 12:21] LABS: Red Blood Cells-Urine 5-10 SEEN /hpf (0-5)
--- NOTE | 2024-07-24 12:34 | HP.PCM.HOS_ITS ---
HPI - General General Date of Admission: 07/24/24 Date of Service: 07/24/24 Chief Complaint: weakness HPI Narrative RUBEN COSTELLO, is a 74 F with a PMH as outlined who presents via the ED on 07/24/2024 with a complaint of weakness and increasing recurrent falls over the last few months prior to admission. She fell a couple of days ago and has been intermittently confused so daughter brought her in. She was recently diagnosed with a UTI and just completed a course of PO Keflex last Friday. She had been falling several times in her daughter's house. She had fallen about 2 weeks prior and cracked one of her right ribs and says she had any having pain with breathing in and out. Because of that fall with a resultant She had gone to her daughter's house where she had also been falling. She says she feels like she trips over things. Daughter was concerned that she was getting too weak, so she came in the ED. She denied any nausea, vomiting, fever or chills. Review of systems is otherwise negative. She denied any chest pain, palpitations, dizziness or shortness of breath or any other symptoms. Review of systems otherwise negative. Vitals in the ED were blood pressure 135/87, pulse rate of 87 and oxygen saturation of 96% on room air. Respiratory rate was 16. CBC showed hemoglobin of 10.4 WBC of 7.9 and platelets of 233. Chemistry showed sodium of 138, potassium of 4.2 and Cr of 1.5. Initial troponin was 955 and BNP was one 359.1. Urinalysis showed cloudy urine with 4+ bacteria as well as positive nitrites and [address] of the brain showed no acute intracranial pathology and showed age-appropriate volume loss and remote small vessel ischemic changes. Chest x-ray showed cardiomegaly with pulmonary vascular congestion. She is being admitted to be managed for nonstemi, as well as recurrent UTI and debility and weakness due to mechanical falls. [facility] Medical History Myocardial infarct Left bundle branch block H. pylori infection EBV positive mononucleosis syndrome Left renal stone Knee pain Wears glasses Anxiety Post-menopausal Arthritis High cholesterol Gastric reflux Non-smoker Shortness of breath on exertion History of edema History of echocardiogram History of stress test Cardiology follow-up encounter History of atrial fibrillation GERD (gastroesophageal reflux disease) CPAP (continuous positive airway pressure) dependence Sleep apnea Asthma DVT (deep venous thrombosis) Hydronephrosis Paroxysmal atrial fibrillation Morbid obesity Stage 3b chronic kidney disease (CKD) Microcalcification of right breast on mammogram Erythematous bladder mucosa Left renal stone Kidney stone Essential hypertension Atherosclerotic heart disease of [place] coronary artery without angina pectoris TATIANA (obstructive sleep apnea) Hemorrhoids Depression Atherosclerosis of coronary 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 Chronic diastolic (congestive) heart failure Nonspecific abnormal unspecified cardiovascular function study Abnormal pulmonary function test Obesity TATIANA (obstructive sleep apnea) COPD (chronic obstructive pulmonary disease) Hyperlipidemia Home Medications ?Medication ?Instructions ?Recorded ?Last Taken ?Type aspirin 81 mg tablet,delayed 81 mg PO DAILY Anticoagla te 08/02/13 07/24/24 History release omeprazole 20 mg capsule,delayed 20 mg PO QHS Heartbur n 06/22/19 07/23/24 History release cholecalciferol (vitamin D3) 1,250 1 cap PO SA Ordered by Dr. Henriquez 07/10/19 07/24/24 History mcg (50,000 unit) capsule escitalopram oxalate 20 mg tablet 20 mg PO DAILY DEPRE SSION 05/15/21 07/24/24 History (Lexapro) potassium chloride 10 mEq 20 meq PO DAILY Heart health 10/18/21 07/24/24 History tablet,extended release metoprolol tartrate 25 mg tablet 12.5 mg (1/2 x 25 mg) PO BID B/P 10/02/23 07/24/24 Rx #90 tabs apixaban 5 mg tablet (Eliquis) 5 mg PO BID Anticoagula nt #180 tabs 02/16/24 07/24/24 Rx simvastatin 40 mg tablet 40 mg PO QHS Cholesterol #90 tabs 07/20/24 07/23/24 Rx hydrochlorothiazide 25 mg tablet 25 mg PO DAILY Health 07/21/24 07/24/24 History ramipril 2.5 mg capsule (Altace) 2.5 mg PO DAILY #90 c aps 07/21/24 07/24/24 Rx acetaminophen 650 mg 650 mg PO Q8H PRN pain 07/24 Unknown History tablet,extended release ascorbic acid (vitamin C) 100 mg 100 mg PO DAILY suppl ement 07/24/24 Unknown History tablet escitalopram oxalate 10 mg tablet 10 mg PO DAILY mood 07/24/24 Unknown History magnesium oxide-magnesium amino 2 cap PO QHS sleep Unknown History acid chelate 300 mg capsule Allergy/AdvReac Type Severity Reaction Status Date / Time acetaminophen (From Vicodin) Allergy Intermediate Hives Verified 07/24/24 11:05 fluoxetine (From Prozac) Allergy Intermediate Nausea Verified 07/24/24 11:05 hydrocodone (From Vicodin) Allergy Intermediate Hives Verified 07/24/24 11:05 promethazine (From Phenergan) Allergy Intermediate Itching Verified 07/24/24 11:05 sulfamethoxazole (From AdvReac Severe renal Verified 07/24/24 11:05 Bactrim) failure trimethoprim (From Bactrim) AdvReac Severe renal Verified 07/24/24 11:05 failure Family History Father Colon cancer Mother Cancer lung Other Gastric reflux Surgical History History of cardiac catheterization History of cystoscopy History of cholecystectomy History of coronary artery stent placement History of lithotripsy Hx of CABG Postsurgical aortocoronary bypass status Postsurgical percutaneous transluminal coronary angioplasty (PTCA) status S/P coronary artery stent placement (~05/28/16) Social History household members: none housing: apartment pets and animals: Yes pets and animals: dog(s) Smoking Status: Never smoker alcohol intake: never substance use type: does not use ROS Review of Systems ROS Unobtainable: Denies due to encephalopathy Constitutional Constitutional: Reports fatigue, malaise and weakness; Denies anorexia, chills or fever(s) Eyes Eyes: Denies change in vision ENT HEENT: Denies dysphagia, headache(s) or sore throat Cardiovascular Cardiovascular: Denies chest pain, dyspnea on exertion, edema, lightheadedness, orthopnea, palpitations or paroxysmal nocturnal dyspnea Respiratory/Chest Respiratory/Chest: Denies cough, dyspnea, shortness of breath at rest or shortness of breath with exertion Gastrointestinal Gastrointestinal: Denies abdominal pain, constipation, diarrhea, nausea or vomiting Genitourinary Genitourinary: Denies burning urination, dysuria, hematuria or urinary urgency Musculoskeletal Musculoskeletal: Reports other Details: rib pain due to mechanical falls ; Denies back pain or joint pain Neurologic Neurologic: Denies confusion, dizziness, focal weakness, headache(s) or seizures Psychiatric Psychiatric: Denies anxiety or depression Vital Signs Vital Signs Vital Signs: 07/24/24 10:51 07/24/24 10:54 07/24/24 11:00 Temperature 98.3 F 98.0 F Temperature Source Temporal Oral Pulse Rate 59 L 63 Respiratory Rate 16 17 Respiratory Effort Normal Respiratory Pattern Normal Blood Pressure 141/58 H 141/58 H Blood Pressure Mean 85 85 Pulse Ox 100 99 Oxygen Delivery Method Room Air Room Air 07/24/24 11:51 07/24/24 12:00 Temperature Temperature Source Pulse Rate 87 87 Respiratory Rate 16 Respiratory Effort Respiratory Pattern Blood Pressure 120/81 H 135/87 H Blood Pressure Mean 94 103 Pulse Ox 96 96 Oxygen Delivery Method Weight Weight: 227 lb 1.218 oz Body Mass Index (BMI) 41.5 Physical Exam Const alert, oriented x3 and no apparent distress Constitutional Narrative: class III obesity General Appearance: cooperative HEENT normocephalic, head/scalp atraumatic, moist oral mucous membranes and oropharynx normal HEENT Narrative: hard of hearing. Mouth: oral and palatal mucosa normal Eyes PERRL, EOMs intact bilaterally and conjunctivae normal Neck no lymphadenopathy and supple Resp Resp Narrative: mildly diminished breath sounds bibasally, no wheezes or crackles. On room air. Cardio regular rhythm, S1 normal heart sound, S2 normal heart sound and no murmurs Cardio Narrative: episodic mild bradycardia GI normal to inspection, nondistended, normoactive bowel sounds, soft to palpation, non-tender and non-distended Extremity normal to inspection and full ROM Extremity Narrative: mild 1+ bipedal pitting edema Neuro oriented x3, CN's II-XII intact bilaterally and moves all extremities Sensorium / Orientation: awake and alert Motor Exam: strength 5/5 throughout Psych affect normal Results Lab / Micro Data 07/24/24 11:05 07/24/24 11:05 Labs: Laboratory Results - last 24 hr 07/24/24 11:05: WBC 7.9, RBC 3.29 L, Hgb 10.4 L, Hct 32.0 L, MCV 97.3, MCH 31.6, MCHC 32.5, RDW Std Deviation 50.1 H, RDW Coeff of Abelardo 13.9, Plt Count 233, MPV 9.7, Immature Gran % (Auto) 0.400, Neut % (Auto) 58.1, Lymph % (Auto) 30.2, [place] % (Auto) 9.0, Eos % (Auto) 1.9, Baso % (Auto) 0.4, Absolute Neuts (auto) 4.6, Absolute Lymphs (auto) 2.38, Nucleated RBC % 0, Sodium 138, Potassium 4.2, Chloride 106, Carbon Dioxide 27.0, Anion Gap 6, BUN 45 H, Creatinine 1.50 H, Estim Creat Clear Calc 36.45, Est GFR (MDRD) Af Amer 44 L, Est GFR (MDRD) Non-Af 36 L, BUN/Creatinine Ratio 30.0 H, Glucose 128 H, Calcium 9.6, Troponin I High Sens 955 H* 07/24/24 11:45: Urine Color Yellow, Urine Clarity Sl. Cloudy, Urine pH 6.5, Ur Specific Tyler 1.010, Urine Protein 15 H, Urine Glucose (UA) Normal, Urine Ketones Negative, Urine Occult Blood 50 H, Urine Nitrite Positive H, Urine Bilirubin Negative, Urine Urobilinogen Normal, Ur Leukocyte Esterase 500 H, Urine RBC 5-10 SEEN, Urine WBC 50-100 SEEN, Ur Squamous Epith Cells 0 SEEN, Urine Bacteria 4+, Urine Mucus 0 SEEN Imaging Radiology Impression Brain CT 07/24/24 11:07 IMPRESSION: 1. No CT evidence of acute intracranial pathology. 2. Age-appropriate volume loss and remote small vessel ischemic changes. Reading Location: [facility] Chest X-Ray 07/24/24 11:30 IMPRESSION: Cardiomegaly with pulmonary vascular congestion. Reading Location: [facility] Assessment & Plan Assessment/Plan (1) Non-ST elevation AR (NSTEMI): (2) Acute UTI: (3) Recurrent falls: PLAN: Plan #Nonstemi * Admit to PCU. Patient not complaining of any chest pain whatsoever. * Was admitted with a complaint of weakness and recurrent falls. However on admission initial troponin was elevated at 955. * EKG showed no acute ST changes. * Will cycle troponins. Repeat troponin down to 685. * Hold Eliquis and start on heparin drip without bolus. * P.o. aspirin and high intensity statin * Cardiology consulted. 2D echo ordered. #REcurrent UTI * Recently completed a course of Keflex for UTI. Urinalysis shows 4+ bacteria. * Will get urine cultures and start on IV cefepime based on previous cultures. * Previous urine cultures grew ESBL E. coli and [place] odontolyticus #Acute on chronic exacerbation of HFpEF * She is on room air but chest x-ray shows cardiomegaly and pulmonary vascular congestion. BNP is also elevated at over 2000. * Diuresed with IV Lasix 40 mg daily. * Restrict fluids to 1500 cc daily. * Titrate oxygen to maintain saturation above 90%. #Debility and weakness due to mechanical falls * Patient has apparently been falling very frequently at home. * Consult PT OT. Fall precautions. * #CKD stage III: * Creatinine was 1.5 on admission. * Her baseline creatinine is actually around 1.1- 1.37 of the baseline. * I will monitor. * # History of CAD s/p stents: On aspirin and metoprolol as well as ramipril and statin DVT prophylaxis: not indicated as patient started on heparin drip. Code status: DNRCCA no intubation * Patient and her daughter Kiara counseled extensively about differences between full code, DNR CC and DNR CCA. Patient initially seemed to be leaning towards a full code but then said she was confused and look towards her daughter for assistance. After further discussion, daughter recommended that patient should be DNR CCA no intubation especially because patient's had undergone CPR and daughter explained to mother about how it was a traumatic experience which could result in broken ribs. * patient was in full agreement with this and is agreeable to be DNR CCA no intubation. * Total ddgw-ux-pery time 16 minutes. Charges/Coding Visit Charges Inpatient E&M: 36806 Init Hosp L3 Procedures Hospitalists Procedures: 48429 Advncd Care Plan 30 Min
[2024-07-24 12:39] LABS: BNP,B-Type NATRIURETIC PEPTIDE 1359.1 pg/mL (0-100)
[2024-07-24] MEDS: Cefepime HCl 2 GM in 0.9% Normal Saline (100mL MB+) 100 ML IV (13:01)
--- NOTE | 2024-07-24 13:40 | CASEMGMT ---
Care Management Face to Face with patient for initial transition planning/care coordination assessment.? This rfp writer introduced self and role at [facility]. Patient lying in bed, alert and oriented. Patient willing to participate in assessment and is able to answer all questions appropriately.? Care providers, pharmacy, and demographics verified. Patient?s daughter, Kiara was also present during the assessment which patient consented to. Admitting Diagnosis: Acute UTI Other diagnosis history: Including but not limited to: HTN, HLD, COPD, A-fib, GERD, DVT, Stage 3 CKD, HTN, TATIANA, CHF, and Hyperlipidemia. PCP: Dr. Evangelist Henriquez Specialists: Bark Fitter: Dr. Art, scheduled to see on 08/09/24. Preferred Pharmacy: [facility] in [place]. Insurance: Medicare Part A and B and [employer] Prescription Benefit:? Yes, through [employer]. Living Will/HPOA: DNR-CCA and patient?s daughterKiara is the HPOA. LNOK: Patient is .? Patient has 2 daughters, Kiara and Linn and a son, Christo. Living Arrangements: Patient lives alone in her own apartment. Patient denied having any stairs in the apartment or any stairs to get in/out of apartment.? Patient and her daughter denied any environmental barriers at this time. Transportation: Patient does not drive however patient?s family provides transportation whenever needed. DME: Walker, rollator, shower chair, HHS and CPAP. HHC: No history other than what patient has received through the hospital.? SNF/Rehab: None previously. Community Resources: Previously: Mom?s Meals however patient no longer wanted.? No community resources at this time and none requested. Behavioral Health History:? Anxiety and Depression. Patient reported she is currently on medication for depression and anxiety however doesn?t feel like it?s working.? Medication is prescribed by patient?s PCP and patient has shared her concerns with the office SENIOR MEDICAL TRANSCRIPTIONIST and has had recent medication adjustments.? ash worker also talked with patient about possible resources for a mental health therapist and one that can possibly do Telehealth if needed. Patient stated she will think about it. Patient goals: Patient would like to transition to the TCU when medically ready and from there, to be discharged home. Patient denies need for home health at this time.? Patient states she has no further needs or concerns at this time. Disposition Plan: Admission to acute; RN CM/SW to follow for discharge planning needs that may arise. Kasey Rowland, MUTUEL TELLER, ADVANCED PRACTICE PROFESSIONAL
--- NOTE | 2024-07-24 14:41 | ECHOCS_ITS ---
Reason For Study Reason For Study: CHF Procedure This was a 2D Doppler, Color Flow transthoracic echocardiogram. The study was technically difficult. Contrast injection was performed. Exam performed portable in patient room. Left Ventricle Normal LV size. The estimated ejection fraction is 40 %. Hypokinesis of the septum, posterior wall and lateral wall. Right Ventricle Normal RV size. Normal systolic function. Atria The left atrium is moderately enlarged. Normal right atrium. No doppler evidence for ASD. Mitral Valve There is no mitral valve stenosis. Trivial mitral valve insufficiency. Tricuspid Valve There is no tricuspid stenosis. Trivial tricuspid valve insufficiency. Unable to estimate RV systolic pressure due to insufficient tricuspid regurgitant envelope. Aortic Valve Trisinus/trileaflet aortic valve. There is no aortic stenosis. No aortic valve insufficiency. Pulmonic Valve There is no pulmonic valvular stenosis. Trivial pulmonic valve insufficiency. Great Vessels Normal sized aortic root. Pericardium/Pleural No pericardial effusion. Medication Diluted definity 2ml given slow IV push to enhance endocardial definition. MMode/2D Measurements & Calculations LVIDd: 5.7 cm IVSd: 1.0 cm Ao root diam: 3.8 cm LVIDs: 4.9 cm LVPWd: 1.1 cm RVDd: 4.0 cm FS: 14.5 % LAV(MOD-bp): 85.8 ml LVAd ap4: 42.4 cm2 SV(MOD-sp4): 58.8 ml LAV(MOD-bp) Indexed: 42.5 ml/m2 LVLd ap4: 8.4 cm SI(MOD-sp4): 29.2 ml/m2 LAV(MOD-sp2): 83.7 ml EDV(MOD-sp4): 173.4 ml LAV(MOD-sp4): 87.0 ml EDV(sp4-el): 181.8 ml LVAs ap4: 31.6 cm2 LVLs ap4: 7.0 cm ESV(MOD-sp4): 114.6 ml ESV(sp4-el): 120.5 ml EF(MOD-sp4): 33.9 % EF(sp4-el): 33.7 % SV(sp4-el): 61.3 ml LA A4 area: 26.1 cm2 LA dimension(2D): 5.0 cm RA A4 area: 16.8 cm2 TAPSE: 1.3 cm Time Measurements MV dec time: 0.12 sec Doppler Measurements & Calculations MV E max kevin: 114.3 cm/sec Lat Peak E' Kevin: 12.7 cm/sec Med Peak E' Kevin: 6.0 cm/sec MV A max kevin: 96.3 cm/sec E/E' lat: 9.0 E/E' med: 19.0 MV E/A: 1.2 MV V2 max: 130.6 cm/sec MV P1/2t max kevin: 132.1 cm/sec Ao V2 max: 122.8 cm/sec MV max P.9 mmHg MV P1/2t: 47.4 msec Ao max P.0 mmHg MV V2 mean: 79.2 cm/sec MV dec slope: 816.0 cm/sec2 Ao V2 mean: 88.1 cm/sec MV mean P.9 mmHg MVA(P1/2t): 4.6 cm2 Ao mean P.5 mmHg MV V2 VTI: 36.9 cm Ao V2 VTI: 29.2 cm AV (velocity ratio): 0.85 LV V1 max: 105.8 cm/sec MR max kevin: 460.1 cm/sec PA V2 max: 95.5 cm/sec LV V1 max P.5 mmHg MR max P.7 mmHg LV V1 mean P.5 mmHg LV V1 mean: 75.7 cm/sec LV V1 VTI: 24.7 cm TR max kevin: 237.0 cm/sec TR max P.5 mmHg ECHO/Echo Complete W/ Contrast Interpretation Summary The estimated ejection fraction is 40 %. The left atrium is moderately enlarged. Trivial mitral valve insufficiency. Ordering Physician: Anne Liu Performed By: Finesse Echols RCS
--- NOTE | 2024-07-24 14:53 | CON.PCM.CA_ITS ---
Assessment & Plan Assessment/Plan (1) Atherosclerotic heart disease of [place] coronary artery without angina pectoris: QUALIFIERS: [place] vs. transplanted heart: [place] heart Qualified Code(s): I25.10 - Atherosclerotic heart disease of [place] coronary artery without angina pectoris (2) COPD (chronic obstructive pulmonary disease): QUALIFIERS: Emphysema type: unspecified (3) TATIANA (obstructive sleep apnea): (4) Hyperlipidemia: QUALIFIERS: Hyperlipidemia type: unspecified Qualified Code(s): E 78.5 - Hyperlipidemia, unspecified (5) S/P coronary artery stent placement: (6) Non-ST elevation [place] (NSTEMI): PLAN: Cardiac regular recommendation. 74-year-old female with extensive cardiac patient had a history of CAD status post CABG in 1998 with ROACH to LAD and SVG to D1. Following that she has multiple PCI and stent. She had a previous PCI and stent to LAD As well she had a bare-metal stent to the proximal RCA in 2011 that was based on the echo report was a large vessel. Cardiac cath in 2016 showed left main, patent, occluded ostial LAD, patent circumflex OM. Patent ROACH to LAD. RCA large vessel with a patent proximal stent as well the SVG graft to the D1 was patent with proximal in-stent restenosis/nonobstructive. Patient presented to ED with complaint of weakness increasing recurrent fall evidently she had couple of falls recently and has been intermittently confused Based on this change in her status the daughter brought her to the hospital and recently she completed antibiotic treatment for UTI. Cardiac consultation requested as she had elevated high sensitive troponins in the range of 955 with elevated BNP 1359.. I review all the current evaluation including the lab result of the EKG current medication Patient has been on anticoagulation with Eliquis as she has a history of paroxysmal atrial fibrillation she has been in sinus rhythm. Patient has a chronic left bundle branch block patient on heparin, Eliquis discontinued will continue on rest of the cardiac medication Including aspirin, statin, beta-uche and ISAMAR inhibitor Currently on metoprolol ramipril, aspirin and simvastatin. Will evaluate by echocardiogram this admission As well would recommend further evaluation with cardiac catheterization which can be set up on Friday. To evaluate for progression of CAD. Henry Lee MD,FAC,[facility] side boss HPI Consult Data Date of Consult: 07/24/24 HPI Narrative Reason for Consultation: Elevated high sensitive troponin/non-STEMI HPI Narrative: RUBEN COSTELLO, is a 74 F who presents [facility] Medical History Left renal stone Knee pain Wears glasses Anxiety Post-menopausal Arthritis High cholesterol Gastric reflux Non-smoker Shortness of breath on exertion History of edema History of echocardiogram History of stress test Cardiology follow-up encounter History of atrial fibrillation GERD (gastroesophageal reflux disease) CPAP (continuous positive airway pressure) dependence Sleep apnea Asthma DVT (deep venous thrombosis) Hydronephrosis Paroxysmal atrial fibrillation Morbid obesity Stage 3b chronic kidney disease (CKD) Microcalcification of right breast on mammogram Erythematous bladder mucosa Left renal stone Kidney stone Essential hypertension Atherosclerotic heart disease of [place] coronary artery without angina pectoris TATIANA (obstructive sleep apnea) Hemorrhoids Depression Atherosclerosis of coronary 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 Chronic diastolic (congestive) heart failure Nonspecific abnormal unspecified cardiovascular function study Abnormal pulmonary function test Obesity TATIANA (obstructive sleep apnea) COPD (chronic obstructive pulmonary disease) Hyperlipidemia Home Medications ?Medication ?Instructions ?Recorded ?Last Taken ?Type aspirin 81 mg tablet,delayed 81 mg PO DAILY Anticoagla te 08/02/13 07/24/24 History release omeprazole 20 mg capsule,delayed 20 mg PO QHS Heartbur n 06/22/19 07/23/24 History release cholecalciferol (vitamin D3) 1,250 1 cap PO SA Ordered by Dr. Henriquez 07/10/19 07/24/24 History mcg (50,000 unit) capsule escitalopram oxalate 20 mg tablet 20 mg PO DAILY DEPRE SSION 05/15/21 07/24/24 History (Lexapro) potassium chloride 10 mEq 20 meq PO DAILY Heart health 10/18/21 07/24/24 History tablet,extended release metoprolol tartrate 25 mg tablet 12.5 mg (1/2 x 25 mg) PO BID B/P 10/02/23 07/24/24 Rx #90 tabs apixaban 5 mg tablet (Eliquis) 5 mg PO BID Anticoagula nt #180 tabs 02/16/24 07/24/24 Rx simvastatin 40 mg tablet 40 mg PO QHS Cholesterol #90 tabs 07/20/24 07/23/24 Rx hydrochlorothiazide 25 mg tablet 25 mg PO DAILY Health 07/21/24 07/24/24 History ramipril 2.5 mg capsule (Altace) 2.5 mg PO DAILY #90 c aps 07/21/24 07/24/24 Rx acetaminophen 650 mg 650 mg PO Q8H PRN pain 07/24 Unknown History tablet,extended release ascorbic acid (vitamin C) 100 mg 100 mg PO DAILY suppl ement 07/24/24 Unknown History tablet escitalopram oxalate 10 mg tablet 10 mg PO DAILY mood 07/24/24 Unknown History magnesium oxide-magnesium amino 2 cap PO QHS sleep Unknown History acid chelate 300 mg capsule Allergy/AdvReac Type Severity Reaction Status Date / Time acetaminophen (From Vicodin) Allergy Intermediate Hives Verified 07/24/24 11:05 fluoxetine (From Prozac) Allergy Intermediate Nausea Verified 07/24/24 11:05 hydrocodone (From Vicodin) Allergy Intermediate Hives Verified 07/24/24 11:05 promethazine (From Phenergan) Allergy Intermediate Itching Verified 07/24/24 11:05 sulfamethoxazole (From AdvReac Severe renal Verified 07/24/24 11:05 Bactrim) failure trimethoprim (From Bactrim) AdvReac Severe renal Verified 07/24/24 11:05 failure Family History Father Colon cancer Mother Cancer lung Other Gastric reflux Surgical History History of cardiac catheterization History of cystoscopy History of cholecystectomy History of coronary artery stent placement History of lithotripsy Hx of CABG Postsurgical aortocoronary bypass status Postsurgical percutaneous transluminal coronary angioplasty (PTCA) status S/P coronary artery stent placement (~05/28/16) Social History household members: none housing: apartment pets and animals: Yes pets and animals: dog(s) Smoking Status: Never smoker alcohol intake: never substance use type: does not use Physical Exam Cardio Cardio Narrative: Patient seen and evaluated and examined Along with nursing staff and the family her daughter at bedside She had discomfort in the chest at the site of the rib fracture when she was taking deep breaths. No retrosternal chest pain ekg monitor showed normal sinus rhythm Cardiac exam S1-S2 is regular Chest examination mildly diminished air entry bilateral. Risk Stratification Risk Stratification Applicable: No Objective Data Vital Signs: Vital Signs Temp Pulse Resp BP Pulse Ox O2 Del Method 98.3 F 67 18 157/89 H 98 Room Air 07/24/24 13:00 07/24/24 13:00 07/24/24 13:00 07/24/24 13:00 07/24/24 13:00 07/24/24 10:54 Oxygen Delivery Method Room Air Weight: 227 lb 1.218 oz Body Mass Index (BMI) 41.5 Lab / Micro Data 07/24/24 11:05 07/24/24 11:05 Labs: Laboratory Results - last 24 hr 07/24/24 11:05: WBC 7.9, RBC 3.29 L, Hgb 10.4 L, Hct 32.0 L, MCV 97.3, MCH 31.6, MCHC 32.5, RDW Std Deviation 50.1 H, RDW Coeff of Abelardo 13.9, Plt Count 233, MPV 9.7, Immature Gran % (Auto) 0.400, Neut % (Auto) 58.1, Lymph % (Auto) 30.2, [place] % (Auto) 9.0, Eos % (Auto) 1.9, Baso % (Auto) 0.4, Absolute Neuts (auto) 4.6, Absolute Lymphs (auto) 2.38, Nucleated RBC % 0, Sodium 138, Potassium 4.2, Chloride 106, Carbon Dioxide 27.0, Anion Gap 6, BUN 45 H, Creatinine 1.50 H, Estim Creat Clear Calc 36.45, Est GFR (MDRD) Af Amer 44 L, Est GFR (MDRD) Non-Af 36 L, BUN/Creatinine Ratio 30.0 H, Glucose 128 H, Calcium 9.6, Troponin I High Sens 955 H*, B-Natriuretic Peptide 1359.1 H 07/24/24 11:45: Urine Color Yellow, Urine Clarity Sl. Cloudy, Urine pH 6.5, Ur Specific [place] 1.010, Urine Protein 15 H, Urine Glucose (UA) Normal, Urine Ketones Negative, Urine Occult Blood 50 H, Urine Nitrite Positive H, Urine Bilirubin Negative, Urine Urobilinogen Normal, Ur Leukocyte Esterase 500 H, Urine RBC 5-10 SEEN, Urine WBC 50-100 SEEN, Ur Squamous Epith Cells 0 SEEN, Urine Bacteria 4+, Urine Mucus 0 SEEN Cardiology Labs/Tests 07/24/24 11:05: WBC 7.9, RBC 3.29 L, Hgb 10.4 L, Hct 32.0 L, MCV 97.3, MCH 31.6, MCHC 32.5, Plt Count 233, MPV 9.7, Immature Gran % (Auto) 0.400, Neut % (Auto) 58.1, Lymph % (Auto) 30.2, [place] % (Auto) 9.0, Eos % (Auto) 1.9, Baso % (Auto) 0.4, Absolute Neuts (auto) 4.6, Nucleated RBC % 0, Sodium 138, Potassium 4.2, Chloride 106, Carbon Dioxide 27.0, Anion Gap 6, BUN 45 H, Creatinine 1.50 H, Est GFR (MDRD) Af Amer 44 L, Est GFR (MDRD) Non-Af 36 L, BUN/Creatinine Ratio 30.0 H , Glucose 128 H, Calcium 9.6, B-Natriuretic Peptide 1359.1 H 07/24/24 11:45: Urine Color Yellow, Urine Clarity Sl. Cloudy, Urine pH 6.5, Ur Specific [place] 1.010, Urine Protein 15 H, Urine Glucose (UA) Normal, Urine Ketones Negative, Urine Occult Blood 50 H, Urine Nitrite Positive H, Urine Bilirubin Negative, Urine Urobilinogen Normal, Ur Leukocyte Esterase 500 H, Urine RBC 5-10 SEEN, Urine WBC 50-100 SEEN Rhythm: EKG: ECHO: Stress Test: Cardiac Cath: PCI: CT Surgery: Holter monitor: EPS: PPM: CXR: Chest CT Scan: Radiography Diagnostic Testing: Radiology Impression Brain CT 07/24/24 11:[address]: [address] evidence of acute intracranial pathology. 2. Age-appropriate volume loss and remote small vessel ischemic changes. Reading Location: [facility] Chest X-Ray 07/24/24 11:30 IMPRESSION: Cardiomegaly with pulmonary vascular congestion. Reading Location: [facility]
[2024-07-24 15:45] LABS: Troponin-I HS 685 pg/mL (3.0-54.0)
[2024-07-24 17:51] LABS: Troponin-I HS 915 pg/mL (3.0-54.0)
[2024-07-24 18:24] LABS: International Normalized Ratio 1.4; Partial Thromboplast Time 32.6 Seconds (24.1-36.2); Prothrombin Time (Protime)PT. 17.7 SECONDS (11.7-14.9)
[2024-07-24] MEDS: HEPARIN/D5w 25,000 UNITS 25,000 UNITS/250 ML IV.SOLN. 10 UNITS CONT INF (18:27)
--- NOTE | 2024-07-24 19:57 | EKG12_ITS ---
Test Reason : CP Blood Pressure : */* mmHG Vent. Rate : 85 BPM Atrial Rate : 85 BPM P-R Int : 134 ms QRS Dur : 158 ms QT Int : 420 ms P-R-T Axes : 92 -33 -76 degrees QTcB Int : 499 ms Normal sinus rhythm Left axis deviation Non-specific intra-ventricular conduction block Abnormal ECG When compared with ECG of 24-Jul-2024 11:36, MANUAL COMPARISON REQUIRED DATA IS UNCONFIRMED Confirmed by Mike Art ([id number]), make up editor DANG GOULD ([id number]) on 07/26/2024 10:39:01 AM Referred By: Confirmed By: Mike Art
[2024-07-24] MEDS: Nitroglycerin (INPATIENT USE) 0.4 MG TAB.SUBL SL ×2 (20:08→20:28)
[2024-07-24] MEDS: Ondansetron 4 MG/2 ML Vial IV (20:10)
[2024-07-24] MEDS: Metoprolol Tartrate 25 MG Tablet 12.5 MG PO (20:45)
[2024-07-24] MEDS: MELATONIN 3 MG TABLET PO (20:46)
[2024-07-24] MEDS: Atorvastatin Calcium 80 MG Tablet PO (20:46)
[2024-07-24] MEDS: Pantoprazole Sodium 20 MG Tablet PO (20:46)
[2024-07-24 21:42] LABS: Troponin-I HS 769 pg/mL (3.0-54.0)
[2024-07-25] VITALS (7 sets, daily range): BP systolic 112–148; BP diastolic 48–60; PULSE 53–62; RESP 16–18; TEMP 36.5–37.1; O2SAT 94–100
[2024-07-25 01:04] LABS: Partial Thromboplast Time 57.4 Seconds (24.1-36.2)
[2024-07-25 06:51] LABS: Absolute Lymphocyte Count 2.45 X10^3/uL (0.83-4.51); Absolute Neutrophil Count 4.9 X10^3/uL (2.0-7.7); Basophil# 0.03 X10^3/uL; Basophil% 0.4 % (0-1); Eosinophils% 1.2 % (0-5); Hematocrit 29.8 % (37-47); Hemoglobin 9.6 g/dL (12.0-15.0); Lymphocyte # 2.45 X10^3/ul (0.83-4.51); Mean Corp Hgb Conc 32.2 g/dL (32-36); Mean Corpuscular Hgb 31.4 pg (27.0-32.0); Mean Corpuscular Volume 97.4 fL (81-99); Mean Platelet Vol. 9.8 fl (6.2-12.0); Monocyte# 0.69 X10^3/uL; Monocyte% 8.4 % (0-10); NRBC Flagged by Analyzer 0 % (0-5); Neutrophil # 4.86 X10^3/uL (2.7-7.7); Neutrophil % 59.5 % (47-70); Platelet Count 218 K/mm3 (150-450); RBC Distribution Width CV 14.1 % (11.6-14.6); RBC Distribution Width SD 49.7 fl (35.1-43.9); Red Blood Count 3.06 M/mm3 (4.2-5.4); White Blood Count 8.2 K/mm3 (4.4-11.0)
[2024-07-25 07:04] LABS: Partial Thromboplast Time 68.8 Seconds (24.1-36.2)
[2024-07-25 07:55] LABS: Anion Gap 8 (5-15); BUN 40 mg/dL (7-18); BUN/Creat Ratio 29.9 RATIO (10-20); Calcium,Total 9.6 mg/dL (8.5-10.1); Chloride 106 mmol/L (98-107); Creatinine, Serum 1.34 mg/dL (0.55-1.02); EST Glomerular Filtration Rate 41 mL/min (>60); Est Glom Filt Rate - Afr Amer 50 mL/min (>60); Glucose 127 mg/dL (74-106); Sodium Level 138 mmol/L (136-145); Troponin-I HS 896 pg/mL (3.0-54.0)
[2024-07-25] MEDS: HYDROcodone Bitartrate/Apap 5/325 Tablet PO ×2 (08:27→18:47)
[2024-07-25] MEDS: Aspirin E.C. 81 MG Tablet PO (08:27)
[2024-07-25] MEDS: Escitalopram Oxalate 20 MG Tablet PO (08:28)
[2024-07-25] MEDS: Ramipril 2.5 MG Capsule PO (08:28)
[2024-07-25] MEDS: Cefepime HCl 1 GM in 0.9% Normal Saline (50mL MB+) 50 ML IV ×2 (11:33→21:08)
[2024-07-25] MEDS: Furosemide 40 MG/4 ML Vial IV (11:34)
[2024-07-25] MEDS: Escitalopram Oxalate 10 MG Tablet PO (11:34)
[2024-07-25] MEDS: 0.9% Saline Lock 10 ML Syringe IV ×3 (11:34→23:19)
--- NOTE | 2024-07-25 14:04 | PN.CARD_ITS ---
Subjective Subjective Patient did have some chest pain last night improved with morphine as she had a fall and a fractured rib Objective Data Vital Signs: Vital Signs Temp Pulse Resp BP Pulse Ox O2 Del Method 98.7 F 56 L 16 118/52 L 98 Room Air 07/25/24 08:24 07/25/24 08:24 07/25/24 08:24 07/25/24 11:41 07/25/24 08:24 07/25/24 08:35 Oxygen Delivery Method Room Air Weight: 227 lb 15.327 oz Body Mass Index (BMI) 41.7 Intake & Output: Intake and Output for Last 24 Hours 07/23/24 07/24/24 07/25/24 23:59 23:59 23:59 Intake Total 100 / 460 789.83 / 789.83 Output Total 500 / 500 Balance 100 / 110 289.83 / 289.83 Lab / Micro Data 07/25/24 06:35 07/25/24 06:35 Labs: Laboratory Results - last 24 hr 07/24/24 11:05: PT Cancelled 07/24/24 11:05: PT 17.7 H, INR Cancelled 07/24/24 11:05: INR 1.4, APTT 32.6 07/24/24 15:13: Troponin I High Sens 685 H* 07/24/24 17:12: Troponin I High Sens 915 H* 07/24/24 20:53: Troponin I High Sens 769 H* 07/25/24 00:43: APTT 57.4 H 07/25/24 06:35: WBC 8.2, RBC 3.06 L, Hgb 9.6 L, Hct 29.8 L, MCV 97.4, MCH 31.4, MCHC 32.2, RDW Std Deviation 49.7 H, RDW Coeff of Abelardo 14.1, Plt Count 218, MPV 9.8, Immature Gran % (Auto) 0.500, Neut % (Auto) 59.5, Lymph % (Auto) 30.0, [place] % (Auto) 8.4, Eos % (Auto) 1.2, Baso % (Auto) 0.4, Absolute Neuts (auto) 4.9, Absolute Lymphs (auto) 2.45, Nucleated RBC % 0, APTT 68.8 H, Sodium 138, Potassium 4.0, Chloride 106, Carbon Dioxide 24.0, Anion Gap 8, BUN 40 H, C reatinine 1.34 H, Estim Creat Clear Calc 40.90, Est GFR (MDRD) Af Amer 50 L, Est GFR (MDRD) Non-Af 41 L, BUN/Creatinine Ratio 29.9 H, Glucose 127 H, Calcium 9.6, Troponin I High Sens 896 H* Micro: Microbiology 07/24/24 11:45 Urine Catheter - Catheter Urine Culture - Preliminary GNR lactose service cleaner Cardiology Labs/Tests 07/24/24 11:05: PT Cancelled 07/24/24 11:05: PT 17.7 H, INR Cancelled 07/24/24 11:05: INR 1.4, APTT 32.6 07/25/24 00:43: APTT 57.4 H 07/25/24 06:35: WBC 8.2, RBC 3.06 L, Hgb 9.6 L, Hct 29.8 L, MCV 97.4, MCH 31.4, MCHC 32.2, Plt Count 218, MPV 9.8, Immature Gran % (Auto) 0.500, Neut % (Auto) 59.5, Lymph % (Auto) 30.0, [place] % (Auto) 8.4, Eos % (Auto) 1.2, Baso % (Auto) 0.4, Absolute Neuts (auto) 4.9, Nucleated RBC % 0, APTT 68.8 H, Sodium 138, Potassium 4.0, Chloride 106, Carbon Dioxide 24.0, Anion Gap 8, BUN 40 H, C reatinine 1.34 H, Est GFR (MDRD) Af Amer 50 L, Est GFR (MDRD) Non-Af 41 L, B UN/Creatinine Ratio 29.9 H, Glucose 127 H, Calcium 9.6 Rhythm: EKG: ECHO: Stress Test: Cardiac Cath: PCI: CT Surgery: Holter monitor: EPS: PPM: CXR: Chest CT Scan: Physical Exam Cardio Cardio Narrative: Patient seen and evaluated and examined at bedside family member had present was at bedside Along with the nursing staff no symptoms of chest pain she was sitting out in a chair card exam S1-S2 regular Chest exam mildly diminished air entry bilateral Examination of lower extremity no lower extremity edema. Assessment & Plan Assessment/Plan (1) History of fractured rib: (2) Paroxysmal A-fib: (3) Atherosclerotic heart disease of [place] coronary artery without angina pectoris: QUALIFIERS: [place] vs. transplanted heart: [place] heart Qualified Code(s): I25.10 - Atherosclerotic heart disease of [place] coronary artery without angina pectoris (4) TATIANA (obstructive sleep apnea): (5) COPD (chronic obstructive pulmonary disease): QUALIFIERS: Emphysema type: unspecified (6) S/P coronary artery stent placement: (7) Acute UTI: PLAN: Cardiac care plan recommendation 74-year-old patient with multiple medical comorbidities Extensive cardiac history This presentation she had a fall and sustained right hip fracture And noted she had elevated high sensitive troponins with a clinical diagnosis of non-ST elevation [place]. Reviewed previous cardiac catheterization and the angiographic findings Anticoagulation has been stopped and patient currently on heparin. No further episode of chest discomfort which is controlled with morphine as she has a fracture right ribs I discussed cardiac care plan in detail with the patient family as well as the nursing staff Patient is scheduled for cardiac catheterization tomorrow Henry Lee MD,FAC,[facility] information systems security specialist (8) Non-ST elevation [place] (NSTEMI):
--- NOTE | 2024-07-25 14:18 | PN_ITS ---
Subjective Subjective Patient seen and examined. Her daughters were by her bedside as well as her sister. She said she had some confusion and hallucinations. Review of systems is otherwise negative. She thinks she may have had a reacdtion to the heparin drip, but from what her daughters tell me, it seems she developed chest pain and it wa relieved by nitro. Review of systems is otherwise negative. Objective Data Objective Data Vital Signs: Vital Signs Temp Pulse Resp BP Pulse Ox O2 Del Method 98.7 F 56 L 16 118/52 L 98 Room Air 07/25/24 08:24 07/25/24 08:24 07/25/24 08:24 07/25/24 11:41 07/25/24 08:24 07/25/24 08:35 Oxygen Delivery Method Room Air Weight: 227 lb 15.327 oz Body Mass Index (BMI) 41.7 Intake & Output: Intake and Output for Last 24 Hours 07/23/24 07/24/24 07/25/24 23:59 23:59 23:59 Intake Total 100 / 460 789.83 / 789.83 Output Total 500 / 500 Balance 100 / 110 289.83 / 289.83 Lab / Micro Data 07/25/24 06:35 07/25/24 06:35 Labs: Laboratory Results - last 24 hr 07/24/24 11:05: PT Cancelled 07/24/24 11:05: PT 17.7 H, INR Cancelled 07/24/24 11:05: INR 1.4, APTT 32.6 07/24/24 15:13: Troponin I High Sens 685 H* 07/24/24 17:12: Troponin I High Sens 915 H* 07/24/24 20:53: Troponin I High Sens 769 H* 07/25/24 00:43: APTT 57.4 H 07/25/24 06:35: WBC 8.2, RBC 3.06 L, Hgb 9.6 L, Hct 29.8 L, MCV 97.4, MCH 31.4, MCHC 32.2, RDW Std Deviation 49.7 H, RDW Coeff of [place]ardo 14.1, Plt Count 218, MPV 9.8, Immature Gran % (Auto) 0.500, Neut % (Auto) 59.5, Lymph % (Auto) 30.0, [place] % (Auto) 8.4, Eos % (Auto) 1.2, Baso % (Auto) 0.4, Absolute Neuts (auto) 4.9, Absolute Lymphs (auto) 2.45, Nucleated RBC % 0, APTT 68.8 H, Sodium 138, Potassium 4.0, Chloride 106, Carbon Dioxide 24.0, Anion Gap 8, BUN 40 H, C reatinine 1.34 H, Estim Creat Clear Calc 40.90, Est GFR (MDRD) Af Amer 50 L, Est GFR (MDRD) Non-Af 41 L, BUN/Creatinine Ratio 29.9 H, Glucose 127 H, Calcium 9.6, Troponin I High Sens 896 H* Micro: Microbiology 07/24/24 11:45 Urine Catheter - Catheter Urine Culture - Preliminary GNR lactose negative developer Physical Exam Const alert, oriented x3 and no apparent distress Constitutional Narrative: class III obesity General Appearance: cooperative HEENT normocephalic, head/scalp atraumatic, moist oral mucous membranes and oropharynx normal Eyes PERRL, EOMs intact bilaterally and conjunctivae normal Neck no lymphadenopathy and supple Resp Resp Narrative: mildly diminished breath sounds bibasally, no wheezes or crackles. On room air. Cardio regular rhythm, S1 normal heart sound, S2 normal heart sound and no murmurs Cardio Narrative: episodic mild bradycardia GI normal to inspection, nondistended, normoactive bowel sounds, soft to palpation, non-tender and non-distended Extremity normal to inspection and full ROM Extremity Narrative: mild 1+ bipedal pitting edema Neuro oriented x3, CN's II-XII intact bilaterally and moves all extremities Sensorium / Orientation: awake and alert Motor Exam: strength 5/5 throughout Psych thought process normal, cooperative and affect normal Appearance: appropriate Assessment & Plan Assessment/Plan (1) Non-ST elevation [place] (NSTEMI): (2) Acute UTI: (3) Recurrent falls: PLAN: Plan #Nonstemi * troponins trended downards. It was 955 on admission and trended down to a uriel of 769. * Was admitted with a complaint of weakness and recurrent falls. However on admission initial troponin was elevated at 955. * EKG showed no acute ST changes. * on heparin drip, aspirin and high intensity statin. * 2D echo ordered for tomorrow * for cardiac cath tomorrow. * #REcurrent UTI * Recently completed a course of Keflex for UTI. Urinalysis shows 4+ bacteria. * Previous urine cultures grew ESBL E. coli and [place] odontolyticus * urine cultures pending. ON IV cefepime. #Acute on chronic exacerbation of HFpEF * She is on room air but chest x-ray shows cardiomegaly and pulmonary vascular congestion. BNP is also elevated at over 2000. * Diuresed with IV Lasix 40 mg daily. * Restrict fluids to 1500 cc daily. * Titrate oxygen to maintain saturation above 90%. #Debility and weakness due to mechanical falls * Patient has apparently been falling very frequently at home. * Consult PT OT. Fall precautions. * got confused overnight with hallucinations. Daughter is at the again it is also because she has not been sleeping well. * Will make him melatonin scheduled and she also take magnesium which she says helps his sleep at night. * #CKD stage III: * Cr is 1.34 today, down from 1.5 on admission. * Her baseline creatinine is actually around 1.1- 1.37 of the baseline. * I will monitor. * # History of CAD s/p stents: On aspirin and metoprolol as well as ramipril and statin DVT prophylaxis: not indicated as patient started on heparin drip. Code status: DNRCCA no intubation * Charges/Coding Visit Charges Inpatient E&M: 31075 Subs Hosp L2
[2024-07-25 14:46] LABS: Partial Thromboplast Time 246.2 Seconds (24.1-36.2)
[2024-07-25] MEDS: Atorvastatin Calcium 80 MG Tablet PO (21:07)
[2024-07-25] MEDS: Pantoprazole Sodium 20 MG Tablet PO (21:07)
[2024-07-25] MEDS: MELATONIN 3 MG TABLET PO (21:08)
[2024-07-25] MEDS: Nystatin Powder 15gm Bottle 1 APPLIC TOPICAL (21:16)
[2024-07-25 23:06] LABS: Partial Thromboplast Time 40.2 Seconds (24.1-36.2)
[2024-07-25] MEDS: Heparin Injection (Vial) 5,000 UNIT/ML VIAL IV (23:19)
[2024-07-25] MEDS: HEPARIN/D5w 25,000 UNITS 25,000 UNITS/250 ML IV.SOLN. 8 UNITS CONT INF (23:55)
[2024-07-26] VITALS (15 sets, daily range): BP systolic 102–156; BP diastolic 52–101; PULSE 53–86; RESP 15–100; TEMP 36.6–37.1; O2SAT 94–99
[2024-07-26] MEDS: HYDROcodone Bitartrate/Apap 5/325 Tablet PO (03:38)
[2024-07-26 05:52] LABS: Absolute Lymphocyte Count 2.03 X10^3/uL (0.83-4.51); Absolute Neutrophil Count 4.1 X10^3/uL (2.0-7.7); Basophil# 0.04 X10^3/uL; Basophil% 0.6 % (0-1); Eosinophil# 0.13 X10^3/uL; Eosinophils% 1.9 % (0-5); Hematocrit 27.8 % (37-47); Lymphocyte # 2.03 X10^3/ul (0.83-4.51); Lymphocyte % 29.4 % (19-41); Mean Corp Hgb Conc 32.4 g/dL (32-36); Mean Corpuscular Hgb 31.6 pg (27.0-32.0); Mean Corpuscular Volume 97.5 fL (81-99); Mean Platelet Vol. 9.7 fl (6.2-12.0); Monocyte# 0.63 X10^3/uL; Monocyte% 9.1 % (0-10); NRBC Flagged by Analyzer 0 % (0-5); Neutrophil # 4.05 X10^3/uL (2.7-7.7); Neutrophil % 58.6 % (47-70); Platelet Count 208 K/mm3 (150-450); RBC Distribution Width CV 13.9 % (11.6-14.6); RBC Distribution Width SD 50.1 fl (35.1-43.9); Red Blood Count 2.85 M/mm3 (4.2-5.4); White Blood Count 6.9 K/mm3 (4.4-11.0)
[2024-07-26 06:01] LABS: Partial Thromboplast Time 64.3 Seconds (24.1-36.2)
[2024-07-26] MEDS: Aspirin E.C. 81 MG Tablet PO (06:08)
[2024-07-26 06:26] LABS: Anion Gap 9 (5-15); BUN 39 mg/dL (7-18); BUN/Creat Ratio 28.3 RATIO (10-20); Calcium,Total 9.2 mg/dL (8.5-10.1); Chloride 105 mmol/L (98-107); Creatinine, Serum 1.38 mg/dL (0.55-1.02); EST Glomerular Filtration Rate 40 mL/min (>60); Est Glom Filt Rate - Afr Amer 48 mL/min (>60); Estimated Creatinine Clearance 39.71 ml/min; Glucose 126 mg/dL (74-106); Sodium Level 138 mmol/L (136-145)
--- NOTE | 2024-07-26 12:45 | EKG12_ITS ---
Test Reason : AM EKG Blood Pressure : */* mmHG Vent. Rate : 65 BPM Atrial Rate : 65 BPM P-R Int : 160 ms QRS Dur : 170 ms QT Int : 504 ms P-R-T Axes : 51 -49 -71 degrees QTcB Int : 524 ms Sinus rhythm with Premature atrial complexes Left axis deviation Left bundle branch block Abnormal ECG When compared with ECG of 26-Jul-2024 13:38, MANUAL COMPARISON REQUIRED DATA IS UNCONFIRMED Confirmed by Mike Art ([id number]), online content editor ANIBAL TIM ([id number]) on 07/27/2024 1:06:02 PM Referred By: Confirmed By: Mike Art
--- NOTE | 2024-07-26 13:33 | CRPHASE1 ---
Patient Communication Patient Information Former Patient:: Phase I and Phase II PHII Cardiac Rehab Discussed with Patient:: Yes Guide to Cardiac Rehab Given to Patient:: Yes Communication to Cardiac Rehab Choice Program [facility] CR PHII:: Communication Given to CR Coloring Machine Operator:: Raul Zelaya Refer Phase II Cardiac Rehab:: Yes Sessions:: 36 sessions - 3 days/wk, 12 weeks Cardiac Rehabilitation Info Program Information Cardiac Rehabilitation Program Information: Cardiac Rehab The cardiac rehab team at [facility] consists of highly skilled exercise physiologists, nurses, respiratory therapists and physicians working together with you. Our purpose is to help you have a full recovery and achieve the goals you set for yourself. Over the years many of our patients have returned to activities they assumed they would never do again! We can help restore your confidence and motivation to make lifestyle changes that can have a significant impact on your health and quality of life! We can help answer questions and concerns you may have about exercise, lifestyle, medications, diet, stress and anxiety which are common following a hospitalization. WE monitor ECG and vital signs during exercise and discuss your progress with you and report to your physician(s). Cardiac Rehab is proven to help reduce readmissions, improve functional capacity and lower recurrence of problems with your heart. Our Cardiac Rehab program is Certified by the [place] [employer] Cardio-Vascular and Pulmonary Rehabilitation (AACVPR) and Accredited by the [place] [employer] through our [facility]. You can contact us at . We invite you to call us with your questions or to get started in our program. If you have other questions or concerns be sure to ask your physician/provider during your follow-up visit. WE look forward to seeing you!
--- NOTE | 2024-07-26 13:33 | CRPH1.INSTRU ---
General Education Discussed with Patient CAD and cardiac anatomy and function:: Family communicates acknowledgment Explanation of diagnoses and procedures:: Family communicates acknowledgment Sign/Symptoms of DC:: Family communicates acknowledgment Antiplatelet therapy: Family communicates acknowledgment Proper use of NTG-SL: Family communicates acknowledgment Emergency procedures and activation of EMS: Family communicates acknowledgment Compliance of all prescribed medications: Family communicates acknowledgment Smoking Risk Factors Patient Nicotine/Smoking Risk Factors Are:: Never smoked Dyslipidemia Risk Factors Patient Dyslipidemia Risk Factors Are:: Total Cholesterol, Triglycerides, HDL and LDL Recommendations Recommendations Include:: Lipid profile not available, Reviewed NCEP/ATP guidelines and Therapeutic Lifestyle Change dietary guidelines Response Code Dyslipidemia Response Code:: Family communicates acknowledgment Overweight/Obesity Risk Factors Patient Overweight/Obesity Risk Factors Are:: Obesity - > or = 30 Recommendations Recommendations Include:: Weight loss of 5-10%, Reduced calorie diet and Exercise 5-7 times/week Response Code Overweight/Obesity:: Family communicates acknowledgment Hypertension Recommendations Recommendations Include:: Maintain BP <130/85, DASH dietary guidelines, Decrease/maintain normal body weight and Moderation of ETOH Response Code Hypertension:: Family communicates acknowledgment Diabetes Risk Factors Patient Diabetes Risk Factors Are:: No documented hx of diabetes Metabolic Syndrome Risk Factors Patient Metabolic Syndrome Risk Factors Are [3 of 5]:: Fasting blood sugar > 100 mg/dL, Waist circumference > 35 [female] or 40 [male] and Hypertension Recommendations Recommendations Include:: Reinforce compliance to risk factor modifications and Encouraged follow-up with Primary Care Physician Response Code Metabolic Syndrome Response Code:: Family communicates acknowledgment Sedentary Risk Factors Patient Sedentary Risk Factors Are:: Lack of regular exercise Recommendations Recommendations Include:: Aerobic exercise 5-7 times/week for 20-30 minutes continuously, Benefits of regular exercise, Discussed home walking program and Monitored Outpatient Cardiac Rehab Response Code Sedentary Response Code:: Family communicates acknowledgment Stress Recommendations Recommendations Include:: Identification of stressors, and assessment of coping skills and Stress management techniques Response Code Stress Response Code:: Family communicates acknowledgment
[2024-07-26 14:01] LABS: Partial Thromboplast Time 139.7 Seconds (24.1-36.2)
--- NOTE | 2024-07-26 14:31 | CHAPLAIN ---
Type of Pastoral Visit _x__ Initial Visit ___ Follow-up Visit ___ On-call Visit ___ General Patient Visit ___ Spiritual Assessment ___ Family Conference ___ Bereavement ___ Rapid Response ___ Code Blue ___ Other (describe below) Pastoral Care Referral From _x__ Patient ___ Family ___ Nurse ___ Physician ___ Line Supply ___ Switch Inspector ___ Other (describe below) Sacrament/Intervention _x__ Active listening ___ Anointing ___ Hinduism ___ Bereavement ___ Communion ___ Amanda exploration ___ ___ Life review _x__ Prayer ___ Reconciliation ___ Sacrament of Sick _x__ Supportive presence ___ Wedding ___ Other (describe below) Pastoral Comments patient had a heart cath earlier today; daughter of pt is with her; pt is upbeat about her situation and has had this procedure before; pt is connected to a local jewish but has not been able to attend services due to health and transportation; pt expresses gratitude for the visit and check in; pt welcomes prayer and presence
--- NOTE | 2024-07-26 15:09 | RAD_ITS ---
PROCEDURE: CHEST 1 VIEW (PORTABLE) REASON FOR EXAM: Increased weakness. TECHNIQUE: Frontal view of the chest. COMPARISON: Comparison is made with prior study dated April 23, 2024. FINDINGS: EKG electrodes are seen. Prior CABG. Borderline cardiomegaly. Vascular congestion and mild degree of CHF. RAD/Chest 1 View (Portable) IMPRESSION: Mild cardiomegaly. Vascular congestion and mild degree of CHF. Reading Location: [id number]
[2024-07-26] MEDS: Furosemide 40 MG/4 ML Vial IV (15:51)
[2024-07-26] MEDS: Ramipril 2.5 MG Capsule PO (15:56)
[2024-07-26] MEDS: Escitalopram Oxalate 20 MG Tablet PO (15:57)
[2024-07-26] MEDS: Escitalopram Oxalate 10 MG Tablet PO (15:57)
--- NOTE | 2024-07-26 18:32 | PCM.PN.HOSP ---
Reason for Visit Reason for Visit: Diagnoses Hyperlipidemia, unspecified (07/24/24) Obstructive sleep apnea (adult) (pediatric) (07/24/24) Non-ST elevation (NSTEMI) myocardial infarction (07/24/24) Atherosclerotic heart disease of [place] coronary artery without angina pectoris (07/24/24) Paroxysmal atrial fibrillation (07/24/24) Chronic obstructive pulmonary disease, unspecified (07/24/24) Urinary tract infection, site not specified (07/24/24) Repeated falls (07/24/24) Personal history of (healed) traumatic fracture (07/24/24) Presence of coronary angioplasty implant and graft (07/24/24) Subjective Subjective Patient underwent cardiac catheterization today with 3 stents in the right coronary artery and balloon angioplasty in an additional vein graft to the diagonal. Patient was not seen and examined today by myself. Objective Data Objective Data Vital Signs: Vital Signs Temp Pulse Resp BP Pulse Ox O2 Del Method O2 Flow Rate 98.1 F 67 18 124/52 H 99 Nasal Cannula 2 07/26/24 16:32 07/26/24 16:32 07/26/24 16:32 07/26/24 16:32 07/26/24 16:32 07/26/24 16:32 07/26/24 16:32 Oxygen Flow Rate (L/min) 2 Oxygen Delivery Method Nasal Cannula Weight: 103.4 kg Body Mass Index (BMI) 41.7 Intake & Output: Intake and Output for Last 24 Hours 07/24/24 07/25/24 07/26/24 23:59 23:59 23:59 Intake Total 100 / 460 1941.13 / 1941.13 0 / 0 Output Total 700 / 900 1050 / 1050 Balance 100 / 110 1241.13 / 1041.13 -1050 / -1050 Lab / Micro Data 07/27/24 05:45 07/27/24 05:45 Labs: Laboratory Results - last 24 hr 07/25/24 22:36: APTT 40.2 H 07/26/24 05:27: WBC 6.9, RBC 2.85 L, Hgb 9.0 L, Hct 27.8 L, MCV 97.5, MCH 31.6, MCHC 32.4, RDW Std Deviation 50.1 H, RDW Coeff of Abelardo 13.9, Plt Count 208, MPV 9.7, Immature Gran % (Auto) 0.400, Neut % (Auto) 58.6, Lymph % (Auto) 29.4, [place] % (Auto) 9.1, Eos % (Auto) 1.9, Baso % (Auto) 0.6, Absolute Neuts (auto) 4.1, Absolute Lymphs (auto) 2.03, Nucleated RBC % 0, APTT 64.3 H, Sodium 138, Potassium 4.0, Chloride 105, Carbon Dioxide 24.0, Anion Gap 9, BUN 39 H, Creatinine 1.38 H, Estim Creat Clear Calc 39.71, Est GFR (MDRD) Af Amer 48 L, Est GFR (MDRD) Non-Af 40 L, BUN/Creatinine Ratio 28.3 H, Glucose 126 H, Calcium 9.2 07/26/24 13:13: APTT 139.7 H* Micro: Microbiology 07/24/24 11:45 Urine Catheter - Catheter Urine Culture - Final Klebsiella pneumoniae sp pneum Radiography Diagnostic Testing: Radiology Impression Echocardiogram 07/24/24 14:41 Interpretation Summary The estimated ejection fraction is 40 %. The left atrium is moderately enlarged. Trivial mitral valve insufficiency. Ordering Physician: Anne Liu Performed By: Finesse Echols [facility] Chest X-Ray 07/26/24 15:09 IMPRESSION: Mild cardiomegaly. Vascular congestion and mild degree of CHF. Reading Location: [id number]
[2024-07-26] MEDS: Ceftriaxone 1 GM/50 ML BAG IV (18:53)
[2024-07-26] MEDS: Furosemide 20 MG/2 ML VIAL IV (22:06)
[2024-07-26] MEDS: Nystatin Powder 15gm Bottle 1 APPLIC TOPICAL (22:07)
[2024-07-26] MEDS: 0.9% Saline Lock 10 ML Syringe IV (22:14)
[2024-07-27] VITALS (8 sets, daily range): BP systolic 109–146; BP diastolic 55–71; PULSE 61–69; RESP 16–20; TEMP 36.4–37.1; O2SAT 95–100
[2024-07-27] MEDS: Furosemide 20 MG/2 ML VIAL IV ×2 (05:56→14:43)
[2024-07-27 06:11] LABS: Hematocrit 31.9 % (37-47); Hemoglobin 10.4 g/dL (12.0-15.0); Mean Corp Hgb Conc 32.6 g/dL (32-36); Mean Corpuscular Hgb 31.3 pg (27.0-32.0); Mean Corpuscular Volume 96.1 fL (81-99); Mean Platelet Vol. 9.9 fl (6.2-12.0); Platelet Count 254 K/mm3 (150-450); RBC Distribution Width CV 13.9 % (11.6-14.6); Red Blood Count 3.32 M/mm3 (4.2-5.4); White Blood Count 10.6 K/mm3 (4.4-11.0)
[2024-07-27 06:43] LABS: Scan Indicated on CBC? Y/N NO
[2024-07-27 06:54] LABS: ALB/GLOB Ratio 0.7 RATIO (0.9-2.4); AST(SGOT) 23 U/L (15-37); Alanine Aminotransfer ALT/SGPT 25 U/L (13-56); Albumin, Serum 2.8 g/dL (3.2-5.0); Alkaline Phosphatase 84 U/L (45-117); Anion Gap 10 (5-15); BUN 34 mg/dL (7-18); BUN/Creat Ratio 22.1 RATIO (10-20); Calcium,Total 9.5 mg/dL (8.5-10.1); Chloride 98 mmol/L (98-107); Creatinine, Serum 1.54 mg/dL (0.55-1.02); EST Glomerular Filtration Rate 35 mL/min (>60); Est Glom Filt Rate - Afr Amer 42 mL/min (>60); Estimated Creatinine Clearance 35.59 ml/min; Globulin 4.2 g/dL (2.2-4.2); Glucose 118 mg/dL (74-106); Potassium 3.6 mmol/L (3.5-5.1); Sodium Level 136 mmol/L (136-145)
--- NOTE | 2024-07-27 08:30 | PN.CARD_ITS ---
Subjective Subjective Patient is resting comfortably in the bed. She denies any shortness of breath or chest pain. She is very confused thinking that her is walking around the room carrying the child in a bag. I discussed this with her daughter this is not unusual when she is admitted to the hospital she tends to have these confused episodes. The patient underwent successful plain old balloon angioplasty of the vein graft to the diagonal and stenting of the right coronary artery yesterday by Dr. Zelaya. The patient did develop some shortness of breath and chest x-ray was consistent with mild congestion she responded to IV Lasix. Objective Data Vital Signs: Vital Signs Temp Pulse Resp BP Pulse Ox O2 Del Method O2 Flow Rate 97.5 F L 61 18 146/65 H 99 Nasal Cannula 2 07/27/24 04:33 07/27/24 04:33 07/27/24 04:33 07/27/24 04:33 07/27/24 07:05 07/27/24 07:05 07/27/24 07:05 Oxygen Flow Rate (L/min) 2 Oxygen Delivery Method Nasal Cannula Weight: 227 lb 15.327 oz Body Mass Index (BMI) 41.7 Intake & Output: Intake and Output for Last 24 Hours 07/25/24 07/26/24 07/27/24 23:59 23:59 23:59 Intake Total 1941.13 / 1941.13 290 / 290 Output Total 700 / 900 4100 / 4100 850 / 850 Balance 1241.13 / 1041.13 -3810 / -3810 -850 / -850 Lab / Micro Data Attestation: I reviewed the patient's lab results. 07/27/24 05:45 07/27/24 05:45 Labs: Laboratory Results - last 24 hr 07/26/24 13:13: APTT 139.7 H* 07/27/24 05:45: WBC 10.6, RBC 3.32 L, Hgb 10.4 L, Hct 31.9 L, MCV 96.1, MCH 31.3, MCHC 32.6, RDW Std Deviation 49.0 H, RDW Coeff of Abelardo 13.9, Plt Count 254, MPV 9.9, Sodium 136, Potassium 3.6, Chloride 98, Carbon Dioxide 28.0, Anion Gap 10, BUN 34 H, Creatinine 1.54 H, Estim Creat Clear Calc 35.59, Est GFR (MDRD) Af Amer 42 L, Est GFR (MDRD) Non-Af 35 L, BUN/Creatinine Ratio 22.1 H, Glucose 118 H, Calcium 9.5, Total Bilirubin 0.50, AST 23, ALT 25, Alkaline Phosphatase 84, Total Protein 7.0, Albumin 2.8 L, Globulin 4.2, Albumin/Globulin Ratio 0.7 L Micro: Microbiology 07/24/24 11:45 Urine Catheter - Catheter Urine Culture - Final Klebsiella pneumoniae sp pneum Rhythm Strip Rhythm Strip: Sinus Rhythm Rate: 60 Ectopy: PVC(s) Cardiology Labs/Tests 07/26/24 13:13: APTT 139.7 H* 07/27/24 05:45: WBC 10.6, RBC 3.32 L, Hgb 10.4 L, Hct 31.9 L, MCV 96.1, MCH 31.3, MCHC 32.6, Plt Count 254, MPV 9.9, Sodium 136, Potassium 3.6, Chloride 98, Carbon Dioxide 28.0, Anion Gap 10, BUN 34 H, Creatinine 1.54 H, Est GFR (MDRD) Af Amer 42 L, Est GFR (MDRD) Non-Af 35 L, BUN/Creatinine Ratio 22.1 H, Glucose 118 H, Calcium 9.5, Total Bilirubin 0.50 Rhythm: EKG: ECHO: Stress Test: Cardiac Cath: PCI: CT Surgery: Holter monitor: EPS: PPM: CXR: Chest CT Scan: Radiography Diagnostic Testing: Radiology Impression Echocardiogram 07/24/24 14:41 Interpretation Summary The estimated ejection fraction is 40 %. The left atrium is moderately enlarged. Trivial mitral valve insufficiency. Ordering Physician: Anne Liu Performed By: Finesse Echols [facility] Chest X-Ray 07/26/24 15:09 IMPRESSION: Mild cardiomegaly. Vascular congestion and mild degree of CHF. Reading Location: [facility] Physical Exam Const alert Constitutional Narrative: Patient is pleasantly confused about her being in the hospital with her. HEENT normocephalic Eyes PERRL Neck no JVD Resp normal respiratory effort Auscultation: crackles bilateral base Cardio regular rate, regular rhythm, S1 normal heart sound and S2 normal heart sound Cardio Narrative: No significant murmurs gallops or rubs. GI soft to palpation Extremity no pedal edema Extremity Narrative: Left radial insertion site is intact with no evidence of hematoma. Right groin insertion site is intact with no evidence of hematoma. Psych Psych Narrative: Patient is pleasantly confused about her overall situation here in the hospital. She is convinced that her is walking around the hospital with a child in a bag. This is not new according to the patient's daughter. Assessment & Plan Assessment/Plan (1) Congestive heart failure: QUALIFIERS: Heart failure type: systolic Heart failure chronicity: acute on chronic Qualified Code(s): I50.23 - Acute on chronic systolic (congestive) heart failure PLAN: Patient has a history of ejection fraction of 40%. She did not receive her last Lasix yesterday and did receive fluids during the stenting procedure. She subsequently developed some congestion on her chest x-ray and shortness of breath that responded to IV Lasix. The patient will be placed on Lasix for her home medication doses. She should be continued on her ISAMAR inhibitor and beta-uche therapy as well. Consider replacing hydrochlorothiazide with a single daily dose of Lasix. (2) S/P coronary artery stent placement: PLAN: Patient status post stenting of the right coronary artery on 07/26/2024. She also has diffuse atherosclerotic disease in the vein graft to a diagonal branch was treated with plain old balloon angioplasty. The patient should be continued on her Eliquis and aspirin. Given the bleeding risk we did not use triple drug therapy in this given situation. After 6 months the aspirin could be discontinued if there are bleeding or nuisance bleeding's. (3) Altered mental status: QUALIFIERS: Altered mental status type: unspecified Qualified Code(s): R41.82 - Altered mental status, unspecified PLAN: Patient is confused but pleasant. According to the daughter the patient has done this before when she was hospitalized. The patient herself realizes that she is seeing her walking around the hospital before when she was here. (4) History of atrial fibrillation: PLAN: Patient is in normal sinus rhythm at 60 bpm on the EKG telemetry. She does have a history of DVTs as well. She has been on long-term oral anticoagulant with Eliquis 5 mg twice daily. Would recommend continuing the Eliquis. PLAN: Plan 1. From a cardiovascular standpoint the patient to be transferred to transitional care unit. 2. Recommend changing hydrochlorothiazide to Lasix 20-40 mg daily. 3. Continue Eliquis and aspirin for a minimum of 6 months and preferably 1 year. 4. The patient should have a follow-up appointment set up with the [facility] when she is discharged from the transitional care unit. Charges/Coding Visit Charges Inpatient E&M: 17565 Subs Hosp L2
--- NOTE | 2024-07-27 10:00 | EKG12_ITS ---
Test Reason : post cath Blood Pressure : */* mmHG Vent. Rate : 67 BPM Atrial Rate : 67 BPM P-R Int : 168 ms QRS Dur : 166 ms QT Int : 474 ms P-R-T Axes : 20 -38 -26 degrees QTcB Int : 500 ms Normal sinus rhythm Left axis deviation Left bundle branch block Abnormal ECG When compared with ECG of 24-Jul-2024 20:01, No significant change was found Confirmed by Mike Art ([id number]), graphic editor ANIBAL TIM ([id number]) on 07/27/2024 1:06:13 PM Referred By: Confirmed By: Mike Art
[2024-07-27] MEDS: Ceftriaxone 1 GM/50 ML BAG IV (10:47)
[2024-07-27] MEDS: 0.9% Saline Lock 10 ML Syringe IV ×2 (10:47→14:43)
[2024-07-27] MEDS: Aspirin E.C. 81 MG Tablet PO (10:51)
[2024-07-27] MEDS: TICAGRELOR 90 MG TABLET PO (10:51)
[2024-07-27] MEDS: Metoprolol Tartrate 25 MG Tablet 12.5 MG PO (11:19)
[2024-07-27] MEDS: Escitalopram Oxalate 20 MG Tablet PO (11:20)
[2024-07-27] MEDS: Escitalopram Oxalate 10 MG Tablet PO (11:20)
[2024-07-27] MEDS: Nystatin Powder 15gm Bottle 1 APPLIC TOPICAL (11:20)
[2024-07-27] MEDS: Ramipril 2.5 MG Capsule PO (12:16)
--- NOTE | 2024-07-27 14:39 | TREXTCAR_ITS ---
Diet Diet Order/Speech Therapy: 07/26/24 14:07 Diet: Cardiac - Heart Healthy Routine Orders/Code Status Code Status: DNRCC-A (No intubation) DC O2, CPAP, BIPAP needs Home O2 Discharge instructions: No Therapies Weight Bearing: Full weight bearing Physical Therapy: Eval and Treat Occupational Therapy: Eval and Treat Problem/Diagnosis (1) Congestive heart failure: Status: Acute Code(s): I50.9 - Heart failure, unspecified (2) S/P coronary artery stent placement: Status: Chronic Code(s): Z95.5 - Presence of coronary angioplasty implant and graft Comment: S/P balloon angioplasty and drug-eluting stent placement to proximal LCx in 05/28/2016. PCI 07/26/24, awaiting report. (3) Altered mental status: Status: Acute Code(s): R41.82 - Altered mental status, unspecified (4) History of atrial fibrillation: Status: Acute Code(s): Z86.79 - Personal history of other diseases of the circulatory system Comment: 1 episode (5) History of fractured rib: Status: Acute Code(s): Z87.81 - Personal history of (healed) traumatic fracture Plan 1. Non-STEMI #2 acute cystitis secondary to Klebsiella pneumoniae #3 metabolic encephalopathy #4 acute on chronic exacerbation of CHF with intermediate ejection fraction #5 chronic kidney disease stage IIIb #6 paroxysmal atrial fibrillation #7 chronic depression #8 deconditioning Allergies/Procedures Done in Hospital Allergies acetaminophen (From Vicodin) Allergy (Intermediate, Verified 07/24/24 11:05) Hives fluoxetine (From Prozac) Allergy (Intermediate, Verified 07/24/24 11:05) Nausea hydrocodone (From Vicodin) Allergy (Intermediate, Verified 07/24/24 11:05) Hives promethazine (From Phenergan) Allergy (Intermediate, Verified 07/24/24 11:05) Itching sulfamethoxazole (From Bactrim) Adverse Reaction (Severe, Verified 07/24/24 11:05) renal failure hyperkalemia trimethoprim (From Bactrim) Adverse Reaction (Severe, Verified 07/24/24 11:05) renal failure hyperkalemia Procedures: Cardiac catheterization (With 3 stents inserted into right coronary artery and balloon angioplasty vein graft to diagonal) Type of Care/Length of Stay Estimated LOS: Convalescent Care Less Than 30 days Type of Care Needed: Skilled Rehab Potential: Good Prognosis: Good Additional Orders/Day of Discharge H&P will serve as current which was dated: 07/24/24 Day of Discharge: 07/27/24 Dietary and Speech Recommendations Dietitian Recommendations/Changes: Continue cardiac diet; ONS not indicated at this time. Consider PCP referral for supportive weight loss when ready for lifestyle change. Discharge Plan Admission Admit Date/Time: 07/24/24 12:52 Primary Reason for Your Visit: Non-STEMI Attending Provider: Ho Crisostomo Primary Care Provider: Evangelist Henriquez Consulting Providers: Henry Lee; Anne Liu Instructions Additional Instructions / Restrictions: Begin clopidogrel 75 mg daily on 07/28/2024 Discharge Orders/Prescriptions Prescriptions: New atorvastatin 80 mg Tablet 80 mg PO QHS Qty: 0 0RF hydrocodone-acetaminophen 5-325 mg Tablet 1 tab PO Q8H PRN PRN (Reason: pain 1-10) 5 Days Qty: 10 0RF nystatin [Nyamyc] 100,000 unit/gram Powder 1 applic topical BID Qty: 0 0RF Protocol: *Topical Application Instructions APPLICATION INSTRUCTIONS: apply to affected areas clopidogrel [Plavix] 75 mg tablet 75 mg PO DAILY Qty: 1 0RF quetiapine [Seroquel] 25 mg tablet 12.5 mg PO QHS Qty: 1 0RF Rx Instructions: Administer at 9 PM nightly furosemide [Lasix] 40 mg tablet 40 mg PO DAILY Qty: 1 0RF Rx Instructions: Start on 07/28/2024 cefdinir 300 mg capsule 300 mg PO BID Qty: 1 0RF Rx Instructions: Start on 07/28/2024 and administer for 3 days then stop the medication Continued omeprazole 20 mg capsule,delayed release(DR/EC) 20 mg PO QHS potassium chloride 10 mEq tablet extended release 20 meq PO DAILY Rx Instructions: Hold if potassium more than 4.5. aspirin 81 MG tablet 81 mg PO DAILY cholecalciferol (vitamin D3) 1,250 MCG capsule 1 cap PO SA Patient Comments: TAKE 1 CAPSULE BY MOUTH ONCE A WEEK escitalopram oxalate [Lexapro] 20 mg tablet 20 mg PO DAILY magnesium oxide-Mg AA chelate 300 mg capsule 2 cap PO QHS escitalopram oxalate 10 mg tablet 10 mg PO DAILY ascorbic acid (vitamin C) 100 mg tablet 100 mg PO DAILY acetaminophen 650 mg tablet extended release 650 mg PO Q8H PRN (Reason: pain) metoprolol tartrate 25 mg tablet 12.5 mg PO BID Qty: 90 3RF Eliquis 5 mg tablet 5 mg PO BID Qty: 180 3RF simvastatin 40 mg tablet 40 mg PO QHS Qty: 90 4RF ramipril [Altace] 2.5 mg capsule 2.5 mg PO DAILY Qty: 90 3RF Discontinued hydrocodone-acetaminophen 5-325 mg tablet 1 tab PO Q8H PRN PRN (Reason: pain) hydrochlorothiazide 25 mg tablet 25 mg PO DAILY Referrals / Follow Up: Evangelist Henriquez DO [Primary Care Provider] - Mike Art MD [Med Staff - Active Staff] - See Referral Note (In 3 weeks- call for an appointment) Disposition Disposition (needs filled in before D/C Order can be placed): Intermediate Facility (1) Congestive heart failure Qualifiers: Heart failure type: systolic Heart failure chronicity: acute on chronic Qualified Code(s): I50.23 - Acute on chronic systolic (congestive) heart failure (3) Altered mental status Qualifiers: Altered mental status type: unspecified Qualified Code(s): R41.82 - Altered mental status, unspecified
--- NOTE | 2024-07-27 15:02 | CASEMGMT ---
Social Work SW spoke w/pt's daughter Kiara, who asked for a referral to TCU. SNF list declined at this time. Pt referred and accepted into TCU and there is a bed today. It is anticipated pt will be d/c to TCU later today. JANET Pedraza
--- NOTE | 2024-07-27 15:19 | DS.PCM_ITS ---
Providers Date of Admission: 07/24/24 Date of Discharge: 07/27/24 Primary Care Physician: Dr. Evangelist Henriquez, Consultations 07/24/24 14:40 Consult: Cardiology Routine Consulting Provider: Henry Lee Reason for Consult: NSTEMI EMERGENT Consult: No MD Notified: Yes Date Notified: 07/24/24 Time Notified: 14:40 Method of Notification: Verbal Reason For Visit: NSTEMI Diagnosis Discharge Diagnosis (1) Congestive heart failure: Status: Acute Code(s): I50.9 - Heart failure, unspecified Qualifiers: Heart failure chronicity: acute on chronic Heart failure type: systolic Qualified Code(s): I50.23 - Acute on chronic systolic (congestive) heart failure (2) S/P coronary artery stent placement: Status: Chronic Code(s): Z95.5 - Presence of coronary angioplasty implant and graft (3) Altered mental status: Status: Acute Code(s): R41.82 - Altered mental status, unspecified Qualifiers: Altered mental status type: unspecified Qualified Code(s): R41.82 - Altered mental status, unspecified (4) History of atrial fibrillation: Status: Acute Code(s): Z86.79 - Personal history of other diseases of the circulatory system (5) History of fractured rib: Status: Acute Code(s): Z87.81 - Personal history of (healed) traumatic fracture Plan 1. Non-STEMI #2 acute cystitis secondary to Klebsiella pneumoniae #3 metabolic encephalopathy #4 acute on chronic exacerbation of CHF with intermediate ejection fraction #5 chronic kidney disease stage IIIb #6 paroxysmal atrial fibrillation #7 chronic depression #8 deconditioning Medications at Discharge Home Medications aspirin 81 mg tablet,delayed release 81 mg PO DAILY heart health 08/02/13 omeprazole 20 mg capsule,delayed release 20 mg PO QHS Heartburn 06/22/19 cholecalciferol (vitamin D3) 1,250 mcg (50,000 unit) capsule 1 cap PO SA vitamin 07/10/19 escitalopram oxalate 20 mg tablet (Lexapro) 20 mg PO DAILY DEPRESSION 05/15/21 potassium chloride 10 mEq tablet,extended release 20 meq PO DAILY Heart health 10/18/21 metoprolol tartrate 25 mg tablet 12.5 mg (1/2 x 25 mg) PO BID B/P #90 tabs 10/02/23 apixaban 5 mg tablet (Eliquis) 5 mg PO BID Anticoagulant #180 tabs 02/16/24 simvastatin 40 mg tablet 40 mg PO QHS Cholesterol #90 tabs 07/20/24 ramipril 2.5 mg capsule (Altace) 2.5 mg PO DAILY blood pressure #90 caps 07/21/24 acetaminophen 650 mg tablet,extended release 650 mg PO Q8H PRN pain 07/24/24 ascorbic acid (vitamin C) 100 mg tablet 100 mg PO DAILY supplement 07/24/24 magnesium oxide-magnesium amino acid chelate 300 mg capsule 2 cap PO QHS sleep 07/24/24 atorvastatin 80 mg tablet 80 mg PO QHS Cholesterol #0 tabs 07/27/24 cefdinir 300 mg capsule 300 mg PO BID Antibiotic #1 cap 07/27/24 clopidogrel 75 mg tablet (Plavix) 75 mg PO DAILY Blood thinner #1 TAB 07/27/24 furosemide 40 mg tablet (Lasix) 40 mg PO DAILY Fluid retention #1 TAB 07/27/24 hydrocodone-acetaminophen 5-325mg 5mg-325mg 1 tab PO Q8H PRN PRN pain 1-10 5 days #10 tabs 07/27/24 nystatin 100,000 unit/gram topical powder (Nyamyc) 1 applic topical BID Skin protection #0 grams 07/27/24 quetiapine 25 mg tablet (Seroquel) 12.5 mg (1/2 x 25 mg) PO QHS Mood #1 TAB 07/27/24 Hospital Course Operations None Procedures 2-D Echocardiogram and Cardiac catheterization (With stenting of the right coronary artery and balloon angioplasty of vein graft to the diagonal artery) Summary of Care Provided Minutes Spent on Discharge: 33 Hospital Course: This 74-year-old white female was seen in the emergency room at [facility] for generalized weakness and intermittent confusion. Patient's family stated that she fell 2 weeks prior injuring her right ribs and a week later was seen in her primary care's office and was diagnosed with 2 right rib fractures and a urinary tract infection. Patient completed her antibiotics 5 days prior to being seen in the ER. Family feels that she needs to go to a custodial facility due to her generalized weakness and intermittent confusion. Labs obtained showed normal white blood cell count, hemoglobin was 10.4, creatinine was elevated at 1.5 and BUN was 45. Patient's troponin was 955 and her beta natruretic peptide was 1359. Urinalysis showed 5- 10 RBCs, 50-100 WBCs and 4+ bacteria. Brain CT showed no acute intracranial pathology, chest x-ray showed cardiomegaly with pulmonary vascular congestion. Patient was admitted to PCU for non-STEMI and congestive heart failure, she was seen in consultation by cardiology and underwent a cardiac catheterization which showed occlusive coronary disease in the right coronary artery-3 stents were placed in this artery, there is also balloon angioplasty done and a vein graft to the diagonal artery. Patient's echocardiogram showed an intermediate ejection fraction of 40%. Patient was seen by PT and OT. On 07/27/2024, patient was seen and examined: On examination she appeared in good health and spirits, she does not appear to be in any distress. Vital signs as documented. Skin warm and dry and without overt rashes. Neck without JVD, thyroid appears normal, trachea is midline, neck is supple. Lungs clear, normal air movement was noted. Heart exam notable for regular rhythm, normal sounds and absence of murmurs, rubs or gallops. Abdomen unremarkable and without evidence of organomegaly, masses, or abdominal aortic enlargement, bowel sounds are present in all 4 quadrants, no abdominal tenderness was noted. Extremities nonedematous, no cyanosis was noted, no clubbing was noted. Neuro: Cranial nerves II through XII are grossly intact, no focal motor deficits were noted, sensation to light touch and pinprick is intact, motor exam 5/5 throughout. Psych: Patient is alert and oriented x3, she does not appear anxious or depressed, she does not appear agitated. Patient appears stable for transfer to TCU for inpatient skilled care on 07/27/2024. Weight / BMI Weight Weight: 103.4 kg Body Mass Index (BMI) 41.7 ABG / Lab / Microbiology Data 07/27/24 05:45 07/27/24 05:45 Laboratory: Laboratory Results - last 24 hr 07/27/24 05:45: WBC 10.6, RBC 3.32 L, Hgb 10.4 L, Hct 31.9 L, MCV 96.1, MCH 31.3, MCHC 32.6, RDW Std Deviation 49.0 H, RDW Coeff of Abelardo 13.9, Plt Count 254, MPV 9.9, Sodium 136, Potassium 3.6, Chloride 98, Carbon Dioxide 28.0, Anion Gap 10, BUN 34 H, Creatinine 1.54 H, Estim Creat Clear Calc 35.59, Est GFR (MDRD) Af Amer 42 L, Est GFR (MDRD) Non-Af 35 L, BUN/Creatinine Ratio 22.1 H, Glucose 118 H, Calcium 9.5, Total Bilirubin 0.50, AST 23, ALT 25, Alkaline Phosphatase 84, Total Protein 7.0, Albumin 2.8 L, Globulin 4.2, Albumin/Globulin Ratio 0.7 L Microbiology: Microbiology 07/24/24 11:45 Urine Catheter - Catheter Urine Culture - Final Klebsiella pneumoniae sp pneum Radiography Diagnostic Testing: Radiology Impression Chest X-Ray 07/26/24 15:09 IMPRESSION: Mild cardiomegaly. Vascular congestion and mild degree of CHF. Reading Location: [id number] D/C Instructions DC O2, CPAP, BIPAP Needs Home O2 Discharge instructions: No Meaningful Use Info Meaningful Use Meaningful Use Diagnoses (Choose all that apply): AMI and CHF AMI/Post PCI/Angioplasty Aspirin given w/in 24hrs of arrival?: Yes ASA at discharge?: Yes Antiplatelet Therapy at Discharge:: Yes Statins at discharge?: Yes Willian/ARB at discharge?: Yes Beta Chikis at discharge?: Yes Done w/ Acute NH measure.: Yes Documented LVEF (%): 40 CHF WILLIAN/ARB ordered at discharge?: Yes Documented LVEF (%): 40 Ischemic Stroke Statin Dosing Therapy Reference: STATIN DOSE THERAPY REFERENCE: * Patients > 75 years receive moderate or high dose statin therapy. * Patients 75 years or YOUNGER should receive HIGH intensity statin dose unless contraindicated. You will be required to document reason for non-treatment if statin daily dose does not meet guidelines. HIGH DOSE STATIN THERAPY DAILY Atorvastatin > than or = to 40 mg Rosuvastatin > than or = to 20 mg Amlodipine + Atorvastatin > than or = to 2.5/40 mg Ezetimibe + Simvastatin 10/80 mg Simvastatin 80mg Discharge Plan Admission Admit Date/Time: 07/24/24 12:52 Primary Reason for Your Visit: Non-STEMI Attending Provider: Ho Crisostomo Primary Care Provider: Evangelist Henriquez Consulting Providers: Henry Lee; Anne Liu Instructions Additional Instructions / Restrictions: Begin clopidogrel 75 mg daily on 07/28/2024 Discharge Orders/Prescriptions Prescriptions: New atorvastatin 80 mg Tablet 80 mg PO QHS Qty: 0 0RF hydrocodone-acetaminophen 5-325 mg Tablet 1 tab PO Q8H PRN PRN (Reason: pain 1-10) 5 Days Qty: 10 0RF nystatin [Nyamyc] 100,000 unit/gram Powder 1 applic topical BID Qty: 0 0RF Protocol: *Topical Application Instructions APPLICATION INSTRUCTIONS: apply to affected areas clopidogrel [Plavix] 75 mg tablet 75 mg PO DAILY Qty: 1 0RF quetiapine [Seroquel] 25 mg tablet 12.5 mg PO QHS Qty: 1 0RF Rx Instructions: Administer at 9 PM nightly furosemide [Lasix] 40 mg tablet 40 mg PO DAILY Qty: 1 0RF Rx Instructions: Start on 07/28/2024 cefdinir 300 mg capsule 300 mg PO BID Qty: 1 0RF Rx Instructions: Start on 07/28/2024 and administer for 3 days then stop the medication Continued omeprazole 20 mg capsule,delayed release(DR/EC) 20 mg PO QHS potassium chloride 10 mEq tablet extended release 20 meq PO DAILY Rx Instructions: Hold if potassium more than 4.5. aspirin 81 MG tablet 81 mg PO DAILY cholecalciferol (vitamin D3) 1,250 MCG capsule 1 cap PO SA Patient Comments: TAKE 1 CAPSULE BY MOUTH ONCE A WEEK escitalopram oxalate [Lexapro] 20 mg tablet 20 mg PO DAILY magnesium oxide-Mg AA chelate 300 mg capsule 2 cap PO QHS ascorbic acid (vitamin C) 100 mg tablet 100 mg PO DAILY acetaminophen 650 mg tablet extended release 650 mg PO Q8H PRN (Reason: pain) metoprolol tartrate 25 mg tablet 12.5 mg PO BID Qty: 90 3RF Eliquis 5 mg tablet 5 mg PO BID Qty: 180 3RF simvastatin 40 mg tablet 40 mg PO QHS Qty: 90 4RF ramipril [Altace] 2.5 mg capsule 2.5 mg PO DAILY Qty: 90 3RF Discontinued hydrocodone-acetaminophen 5-325 mg tablet 1 tab PO Q8H PRN PRN (Reason: pain) hydrochlorothiazide 25 mg tablet 25 mg PO DAILY Referrals / Follow Up: Evangelist Henriquez DO [Primary Care Provider] - Mike Art MD [Med Staff - Active Staff] - See Referral Note (In 3 weeks- call for an appointment) Disposition Disposition (needs filled in before D/C Order can be placed): [facility] Facility Charges/Coding Visit Charges Inpatient E&M: 39442 Disch Hosp >30min
--- NOTE | 2024-07-27 16:37 | CASEMGMT ---
Social Work Discharge orders received for discharge to [facility]. Faxed orders and signed med list to TCU for continuity of care. Orders, med list and signed prescription for class II medication placed in transfer packet to accompany patient. Coordinated with Patient's nurse Ceci, TCU metal control coordinator and patient's daughter Kiara on discharge timeframe of 1729. Plan: Skilled level of care, short term stay at [facility]. No other services requested or indicated. -XAVI Day
--- NOTE | 2024-07-27 17:14 | NURSING ---
Report called to TCU nurse Eleonora, requested IV remain in.
[2024-07-27] MEDS: Clopidogrel Bisulfate 300 MG Tablet PO (17:30)
--- NOTE | 2024-07-31 12:14 | CL.I_ITS ---
Patient Name: RUBEN COSTELLO Study Date: 07/26/2024 Performing: Braulio Zelaya MD Ht: 62 inches 157.48 cm : 1950 Wt: 228.3 lbs 103.4 kg Age: 74 Gender: female BSA: 2.02 PROCEDURE(S) PERFORMED DC04-(48114)LHC/COR/CABG IC14-([id number])GRAFT-ALTON AND/OR PTCA, SINGLE GRAFT IC12-([id number]/[id number])ALTON W/WO PTCA, SINGLE CORONARY ARTERY CLINICAL PROFILE AND CO-MORBIDITIES Indications: NSTEMI Heart Failure: None CONCLUSIONS CAD as described. Patent 2 out of 2 bypass grafts with severe disease in the proximal SVG to diagonal as described. Successful PTCA of SVG to diagonal and drug-eluting stent to distal and ostial RCA. RECOMMENDATIONS DESCRIPTION OF PROCEDURE The patient arrived to the procedure lab. The risks and benefits of the procedure as well as a full description of our services here and lack of surgical backup were fully explained to the patient and/or their significant other prior to the catheterization. The Timeout was completed, verifying the correct patient and procedure. The patient's procedural site was prepped and draped in the usual fashion. Local anesthetic was given subcutaneously to right groin region with Lidocaine 2%. Local anesthetic was given subcutaneously to right groin region with Lidocaine 2%. Local anesthetic was given subcutaneously to left radial region with Lidocaine 2%. Local anesthetic was given subcutaneously to right groin region with Lidocaine 2%. Using a modified Seldinger technique, arterial access was obtained via the left radial artery, a 6Fr sheath was inserted., arterial access was obtained via the right femoral artery, with Micropuncture set. Left Coronary Artery selective angiography was performed in multiple views using a 5 Fr. JL4 catheter. Saphenous Vein graft to the DIAG 1 selective angiography was performed in multiple views using a 5 Fr. JR 4 catheter. Right Coronary Artery selective angiography was then performed in multiple views using a 5 Fr. JR 4 catheter. Left internal mammary artery graft to the LAD selective angiography was performed in multiple views using a 5 Fr. IM catheterThe images were reviewed and options discussed. A decision was then made to proceed with an Intervention, IVUS or other adjunct procedure. Arterial sheath was exchanged for a 6 Fr Sheath. IM Guide catheter was inserted and engaged into the SVG to the 1st Diagonal. BMW Guide wire was advanced to the 1st Diagonal. EMERGE 3.0 X 20 Balloon catheter was inserted. Balloon catheter was advanced across lesion in the graft to the 1st Diagonal. PTCA balloon inflated at 12 atms for 36 secs. PTCA balloon inflated at 12 atms for 36 secs. PTCA balloon inflated at 16 atms for 22 secs. PTCA balloon inflated at 14 atms for 20 secs. Angiogram performed post balloon dilatation. NC EMERGE 3.0 X 20 Balloon catheter was inserted. Balloon catheter was advanced across lesion in the graft to the 1st Diagonal. PTCA balloon inflated at 18 atms for 20 secs. PTCA balloon inflated at 20 atms for 58 secs. Angiogram performed post balloon dilatation. IM Guide catheter was inserted and engaged into the RCA. Guide wire was repositioned to the RCA EMEGE 3.0 X 8 Balloon catheter was inserted. Angiogram performed pre balloon dilatation. Balloon catheter was advanced across lesion in the right coronary, distal. PTCA balloon inflated at 2 atms for 4 secs. PTCA balloon inflated at 4 atms for 4 secs. PTCA balloon inflated at 8 atms for 24 secs. PTCA balloon inflated at 6 atms for 6 secs. TERRI FRONTIER 3.5 X15 Drug Eluting stent was inserted. Drug Eluting stent was advanced across the lesion in the right coronary, distal. Angiogram performed post stent deployment. TERRI FRONTIER 3.5 X 38 Drug Eluting stent was inserted. Drug Eluting stent was advanced across the lesion in the right coronary, distal. Angiogram performed post stent deployment. Guide catheter was inserted and engaged into the SVG to the 1st Diagonal. Angiogram performed post balloon dilatation. Guide catheter was inserted and engaged into the RCA. Angiogram performed post stent deployment. Guide wire was advanced to the RCA. TERRI FRONTIER 3.5 X 26 Drug Eluting stent was inserted. Drug Eluting stent was advanced across the lesion in the right coronary, ostial. Angiogram performed post stent deployment. Contrast was injected through the sheath and the Right Iliac and Femoral artery were assessed for possible closure device. The arterial sheath was pulled and a Perclose closure device was deployed for hemostasis. The arterial sheath was pulled and a TR Band was applied for hemostasis 15 ml of air CORONARY ANGIOGRAPHY DOMINANCE: Right Dominant LEFT MAIN: 60 % Stenosis LEFT ANTERIOR DESCENDING ARTERY: OSTIAL LAD: 100 % Stenosis DISTAL LAD: 80 % Stenosis CIRCUMFLEX ARTERY: OSTIAL CIRC: 75 % Stenosis RIGHT CORONARY ARTERY: OSTIAL RCA: 70 % Stenosis DISTAL RCA: 95 % Stenosis GRAFTS: ROACH graft to the Mid LAD is patent Saphenous Vein graft to the 1st Diagonal has a proximal lesion of 90 % INTERVENTION INFORMATION LESION SITE: Vein > to 1st Diagonal Segment Number: 15-First diagonal branch segment - 1st Diag , Lesion Location: PROXIMAL Body Lesion Complexity: High/C, chronic total occlusion: No, lesion at bifurcation: No, thrombus present: No, lesion length: 30 mm, culprit lesion: Yes, Previously treated lesion: No Pre Stenosis: 90 % PROCEDURE: Balloon Angioplasty Since there was incomplete expansion with balloon angioplasty, and there was very stable PTCA result, we decided not to proceed with stent placement. Post Stenosis: 30 % Lesion Devices: Mccauley .014 190cm BMW [place] Straight Medtronic 6 Fr ETHAN 90cm Guide Catheter Jose Sci EMERGE MR 3.00x20 BALLOON Jose Sci NC EMERGE MR 3.00x20 BALLOON LESION SITE: RCA (Distal) Lesion Complexity: High/C, chronic total occlusion: No, lesion at bifurcation: No, thrombus present: No, lesion length: 45 mm, culprit lesion: Yes, Previously treated lesion: No Pre Stenosis: 95 % Pre intervention JASSON flow: 3 PROCEDURE: Drug Eluting Stent with pre and post dilatation Post Stenosis: 0 % Post intervention JASSON flow: 3 Lesion Devices: Mccauley .014 190cm BMW [place] Straight Medtronic 6 Fr ETHAN 90cm Guide Catheter Jose Sci EMERGE MR 3.00x08 BALLOON Medtronic 3.5 x 15 TERRI FRONTIER ALTON Medtronic 3.5 x 38 TERRI FRONTIER ALTON LESION SITE: RCA (Ostial) Lesion Complexity: High/C, chronic total occlusion: No, lesion at bifurcation: No, thrombus present: No, lesion length: 12 mm, culprit lesion: No, Previously treated lesion: No Pre Stenosis: 70 % Pre intervention JASSON flow: 3 PROCEDURE: Drug Eluting Stent 0 % Post intervention JASSON flow: 3 Lesion Devices: Mccauley .014 190cm BMW [place] Straight Medtronic 6 Fr ETHAN 90cm Guide Catheter Medtronic 3.5 x 26 TERRI FRONTIER ALTON COMPLICATIONS No Complications PROCEDURE MEDICATIONS Fentanyl 50 mcg IV Versed 1 mg IV Versed 1 mg IV Fentanyl 25 mcg IV Oxygen: 2 L/min via nasal cannula Oxygen: 3 L/min via nasal cannula Brilinta 180 mg PO @ 07/26/2024 11:19:54 Heparin given IA 07/26/2024 10:47:29 Heparin 5000 unit(s) IV 07/26/2024 11:19:59 Nitro 100 mcg IC 07/26/2024 11:57:34 Verapamil 2.5mg, Ntg 100mcgs, 3000 units of Heparin given IA 07/26/2024 10:47:29 SUMMARY OF HEMODYNAMIC DATA Time AIR REST ECG 10:05:27 AO 139/69 (99) SA 10:57:07 AO 140/65 (95) 10:58:37 AO 146/63 (98) 11:31:22 Signed By Braulio Zelaya MD On 07/31/2024 12:14:18 Braulio Zelaya MD
== END 2024-07-27 17:44 | disposition skilled nursing facility (03) | DRG 321 ==
LOC: ED 11:43 → PCU 13:14
PROVIDERS: Family Medicine; Physician Assistant; Specialist; Admitting Provider Student in an Organized Health Care Education/Training Program; Emergency Provider Emergency Medicine; PCP Student in an Organized Health Care Education/Training Program; Visit Provider Internal Medicine
DX: I21.4 Non-ST elevation (NSTEMI) myocardial infarction (principal); I50.23 Acute on chronic systolic (congestive) heart failure; G93.41 Metabolic encephalopathy; A42.9 Actinomycosis, unspecified; Z68.41 Body mass index [BMI] 40.0-44.9, adult; I13.0 Hypertensive heart and chronic kidney disease with heart failure and stage 1 through stage 4 chronic kidney disease, or unspecified chronic kidney disease; T82.855A Stenosis of coronary artery stent, initial encounter; R44.3 Hallucinations, unspecified; N30.00 Acute cystitis without hematuria; Z66 Do not resuscitate; I48.0 Paroxysmal atrial fibrillation; B37.9 Candidiasis, unspecified; N18.32 Chronic kidney disease, stage 3b; J43.9 Emphysema, unspecified; F32.A Depression, unspecified; I25.10 Atherosclerotic heart disease of native coronary artery without angina pectoris; I44.7 Left bundle-branch block, unspecified; E66.01 Morbid (severe) obesity due to excess calories; E78.00 Pure hypercholesterolemia, unspecified; G47.33 Obstructive sleep apnea (adult) (pediatric); K21.9 Gastro-esophageal reflux disease without esophagitis; W19.XXXD Unspecified fall, subsequent encounter; I48.91 Unspecified atrial fibrillation; I25.84 Coronary atherosclerosis due to calcified coronary lesion; B96.1 Klebsiella pneumoniae [K. pneumoniae] as the cause of diseases classified elsewhere; B96.20 Unspecified Escherichia coli [E. coli] as the cause of diseases classified elsewhere; Z79.2 Long term (current) use of antibiotics; R53.81 Other malaise; Z79.01 Long term (current) use of anticoagulants; Z79.891 Long term (current) use of opiate analgesic; Z79.82 Long term (current) use of aspirin; Z95.1 Presence of aortocoronary bypass graft; S22.41XD Multiple fractures of ribs, right side, subsequent encounter for fracture with routine healing; R06.89 Other abnormalities of breathing; Z87.440 Personal history of urinary (tract) infections; R29.6 Repeated falls; Z95.5 Presence of coronary angioplasty implant and graft; Z99.89 Dependence on other enabling machines and devices; Y71.2 Prosthetic and other implants, materials and accessory cardiovascular devices associated with adverse incidents; B96.81 Helicobacter pylori [H. pylori] as the cause of diseases classified elsewhere; Z86.79 Personal history of other diseases of the circulatory system
CPT/HCPCS: 36415; 70450; 71045; 71046; 80048; 80053; 81001; 83880; 84484; 85025; 85027; 85610; 85730; 87077; 87086; 87088; 87186; 92928; 92937; 93005; 93306; 93455; 97116; 97162; 97166; 97530; 97802; 99152; 99153; 99285; C1894; P9612; Q9957; Q9967; A4216; C1725; C1760; C1769; C1874; C1887; C8929; C9600; C9604; J1940; J2405

== ENCOUNTER 2024-07-27 17:54 | Inpatient (IN) | payer MEDICARE, OTHER, SELFPAY ==
[2024-07-27 18:01] VITALS: BP 125/56; PULSE 62; RESP 18; TEMP 36.7; O2SAT 97; BMI 39.4
--- NOTE | 2024-07-27 19:04 | HP.PCM_ITS ---
HPI - General General Date of Admission: 07/27/24 Date of Service: 07/28/24 Chief Complaint: Here for rehabilitation. HPI Narrative RUBEN COSTELLO, is a 74 Female who presents with followin07/24/2024 [facility] ED weakness. Recurrent falls, confusion, worsening falls for one year. Fall 2 weeks ago, injury right ribs. PCP diagnosed 2 right rib fractures, UTI, pannus intertrigo. Taking Tramadol for rib pain, not sleeping well. Short of breath with walking, bilateral leg edema for 1 month, on HCTZ. Urinalysis consistent with urinary tract infection, urine culture sent, Cefepime IV given after reviewing previous urine culture results. Troponin 955, BNP 135.9, CT head negative. Eliquis stopped, started on heparin drip, discussed with Cardiology. 07/24/2024 Admit [facility]. Cycle enzymes, Echo, Aspirin, Statin, Heparin drip, consult Cardiology for NSTEMI. Cefepime iv for UTI, urine culture pending. Lasix 40mg iv daily, 1500mL fluid restriction, for acute on chronic HFpEF. PT/OT for weakness. 07/25/2024 Confusion, hallucinations, chest pain relieved by nitroglycerin. Troponin trending down, planning cardiac cath for NSTEMI. Cefepime IV for UTI, urine culture pending. Chest X-ray showed cardiomegaly, vascular congestion, BNP > 2000 for acute on chronic HFpEF. PT/OT for debility. 07/26/2024 Echo EF 40%. Left atrium moderately enlarged. 07/26/2024 Cardiac cath with 3 stents, balloon angioplasty. 07/27/2024 Admit to TCU with debility, here for rehabilitation, strengthening, prior to discharge home alone. [facility] Medical History (Updated 07/27/24 @ 19:[address] Kirk Daniel MD) Myocardial infarct Left bundle branch block H. pylori infection EBV positive mononucleosis syndrome Left renal stone Knee pain Wears glasses Anxiety Post-menopausal Arthritis High cholesterol Gastric reflux Non-smoker Shortness of breath on exertion History of edema History of echocardiogram History of stress test Cardiology follow-up encounter History of atrial fibrillation GERD (gastroesophageal reflux disease) CPAP (continuous positive airway pressure) dependence Sleep apnea Asthma DVT (deep venous thrombosis) Hydronephrosis Paroxysmal atrial fibrillation Morbid obesity Stage 3b chronic kidney disease (CKD) Microcalcification of right breast on mammogram Erythematous bladder mucosa Left renal stone Kidney stone Essential hypertension Atherosclerotic heart disease of [place] coronary artery without angina pectoris TATIANA (obstructive sleep apnea) Hemorrhoids Depression Atherosclerosis of coronary 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 Chronic diastolic (congestive) heart failure Nonspecific abnormal unspecified cardiovascular function study Abnormal pulmonary function test Obesity TATIANA (obstructive sleep apnea) COPD (chronic obstructive pulmonary disease) Hyperlipidemia Home Medications ?Medication ?Instructions ?Recorded ?Last Taken ?Type aspirin 81 mg tablet,delayed 81 mg PO DAILY heart heal th 08/02/13 07/24/24 History release omeprazole 20 mg capsule,delayed 20 mg PO QHS Heartbur n 06/22/19 07/23/24 History release cholecalciferol (vitamin D3) 1,250 1 cap PO SA vitamin 07/10/19 07/24/24 History mcg (50,000 unit) capsule escitalopram oxalate 20 mg tablet 20 mg PO DAILY DEPRE SSION 05/15/21 07/27/24 History (Lexapro) potassium chloride 10 mEq 20 meq PO DAILY Heart health 10/18/21 07/24/24 History tablet,extended release metoprolol tartrate 25 mg tablet 12.5 mg (1/2 x 25 mg) PO BID B/P 10/02/23 07/27/24 Rx #90 tabs apixaban 5 mg tablet (Eliquis) 5 mg PO BID Anticoagula nt #180 tabs 02/16/24 07/24/24 Rx simvastatin 40 mg tablet 40 mg PO QHS Cholesterol #90 tabs 07/20/24 07/23/24 Rx ramipril 2.5 mg capsule (Altace) 2.5 mg PO DAILY blood pressure #90 07/21/24 07/27/24 Rx caps acetaminophen 650 mg 650 mg PO Q8H PRN pain 07/24 Unknown History tablet,extended release ascorbic acid (vitamin C) 100 mg 100 mg PO DAILY suppl ement 07/24/24 Unknown History tablet magnesium oxide-magnesium amino 2 cap PO QHS sleep Unknown History acid chelate 300 mg capsule atorvastatin 80 mg tablet 80 mg PO QHS Cholesterol #0 tabs 07/27/24 07/26/24 Rx cefdinir 300 mg capsule 300 mg PO BID Antibiotic #1 cap 07/27/24 Unknown Rx clopidogrel 75 mg tablet (Plavix) 75 mg PO DAILY Blood thinner #1 TAB 07/27/24 Unknown Rx furosemide 40 mg tablet (Lasix) 40 mg PO DAILY Fluid r etention #1 07/27/24 Unknown Rx TAB hydrocodone-acetaminophen 5-325mg 1 tab PO Q8H PRN PRN pain 1-10 5 07/27/24 07/26/24 Rx 5mg-325mg days #10 tabs nystatin 100,000 unit/gram topical 1 applic topical BI D Skin 07/27/24 07/27/24 Rx powder (Nyamyc) protection #0 grams quetiapine 25 mg tablet (Seroquel) 12.5 mg (1/2 x 25 m g) PO QHS Mood 07/27/24 Unknown Rx #1 TAB Allergy/AdvReac Type Severity Reaction Status Date / Time acetaminophen (From Vicodin) Allergy Intermediate Hives Verified 07/24/24 11:05 fluoxetine (From Prozac) Allergy Intermediate Nausea Verified 07/24/24 11:05 hydrocodone (From Vicodin) Allergy Intermediate Hives Verified 07/24/24 11:05 promethazine (From Phenergan) Allergy Intermediate Itching Verified 07/24/24 11:05 sulfamethoxazole (From AdvReac Severe renal Verified 07/24/24 11:05 Bactrim) failure trimethoprim (From Bactrim) AdvReac Severe renal Verified 07/24/24 11:05 failure Family History Father Colon cancer Mother Cancer lung Other Gastric reflux Surgical History History of cardiac catheterization History of cystoscopy History of cholecystectomy History of coronary artery stent placement History of lithotripsy Hx of CABG Postsurgical aortocoronary bypass status Postsurgical percutaneous transluminal coronary angioplasty (PTCA) status S/P coronary artery stent placement (07/26/24) Social History household members: none housing: apartment pets and animals: Yes pets and animals: dog(s) Smoking Status: Never smoker alcohol intake: never substance use type: does not use ROS Constitutional Constitutional: Denies chills, fever(s) or weight gain ENT HEENT: Denies headache(s), nasal congestion or nasal discharge Cardiovascular Cardiovascular: Denies chest pain or palpitations Respiratory/Chest Respiratory/Chest: Denies cough, excessive phlegm production or shortness of breath with exertion Gastrointestinal Gastrointestinal: Denies abdominal pain, nausea or vomiting Genitourinary Genitourinary: Denies dysuria Musculoskeletal Musculoskeletal: Denies joint pain or joint swelling Integumentary Integumentary: Denies rash or wounds Neurologic Neurologic: Denies focal weakness, numbness or tingling Psychiatric Psychiatric: Denies anxiety, auditory hallucinations, depression, homicidal ideation or suicidal ideation Vital Signs Vital Signs Vital Signs: 07/27/24 18:01 Temperature 98.1 F Temperature Source Temporal Pulse Rate 62 Respiratory Rate 18 Blood Pressure 125/56 H Blood Pressure Mean 79 Blood Pressure Source Monitor Blood Pressure Position Sitting Blood Pressure Location Right Arm Pulse Ox 97 Oxygen Delivery Method Room Air Weight Weight: 97.976 kg Body Mass Index (BMI) 39.4 Physical Exam Const alert General Appearance: cooperative HEENT normocephalic Eyes PERRL and EOMs intact bilaterally Neck supple, no JVD and no carotid bruits Resp normal respiratory effort, normal air movement and clear to auscultation bilaterally Cardio regular rate and regular rhythm GI normal to inspection, nondistended, normoactive bowel sounds, non-tender and non-distended Extremity normal capillary refill General Extremity: Negative for edema Skin no rashes or lesions noted General Skin Exam: no breakdown Psych affect normal Appearance: appropriate Assessment & Plan Assessment/Plan (1) Debility: (2) Multiple falls: (3) Acute encephalopathy: (4) Non-ST elevation NM (NSTEMI): (5) Acute HFrEF (heart failure with reduced ejection fraction): (6) Urinary tract infection: (7) Essential (primary) hypertension: (8) Hyperlipidemia: QUALIFIERS: Hyperlipidemia type: unspecified Qualified Code(s): E78.5 - Hyperlipidemia, unspecified (9) COPD (chronic obstructive pulmonary disease): QUALIFIERS: Emphysema type: unspecified (10) Atrial fibrillation: (11) GERD (gastroesophageal reflux disease): (12) Vitamin D deficiency: (13) Depression: (14) Coronary artery disease: (15) Hypokalemia: PLAN: Plan 74 year old female with below past medical history hospitalized for falls, encephalopathy 2/2 nstemi (underwent stents x 3, angioplasty), acute HFrEF, complicated by urinary tract infection, admitted to TCU with debility, here for rehabilitation, strengthening, prior to discharge home alone. * Debility - PT/OT. * Cognition - ST. * Pain - Tylenol 1000mg q6 prn pain (1-5), Oxycodone 2.5mg q4 prn pain (6-10> * Bowel - senna/colace 2 tablets bid, Magnesium citrate 300mL daily prn. * Adult immunization - Administer pneumonia vaccine, covid vaccine, flu vaccine as appropriate. * DVT prophylaxis - Eliquis. * Atrial Fibrillation - Metoprolol 12.5mg bid, Eliquis 5mg bid. * Coronary artery disease s/p stents x 3 - Metoprolol 12.5mg bid, Ramipril 2.5mg daily, Plavix 75mg daily thru 07/26/2025, Aspirin 81mg daily thru 08/23/2024, Eliquis 5mg bid. In patient with atrial fibrillation on anticoagulation who undergoes cardiac stent, it is recommended they continue anticoagulation along with dual antiplatelet therapy for 30 days, then stop Aspirin, then stop Plavix after 1 year under discretion of cardiology. * Hyperlipidemia - Atorvastatin 80mg qhs. * K. Pneumoniae UTI - Cefdinir 300mg bid thru 07/30/2024. * Vitamin D deficiency - D 1.25mg qweek. 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 * Acute HFrEF - Metoprolol 12.5mg bid, Ramipril 2.5mg daily, Furosemide 40mg daily. * Tinea Corporis - Nystatin powder topical bid. * GERD - Pantoprazole 20mg qhs. * Hypokalemia - KCL 20meq daily. * Visual hallucinations - Seroquel 12.5mg qpm, GDR as visual hallucinations subside. * Insomnia - Mirtazapine 7.5mg qhs.
[2024-07-27] MEDS: APIXABAN 5 MG TABLET PO (19:59)
[2024-07-27 20:00] VITALS: BP 125/56; PULSE 62
[2024-07-27] MEDS: Metoprolol Tartrate 25 MG Tablet 12.5 MG PO (20:00)
[2024-07-27 20:01] VITALS: PULSE 64
[2024-07-27] MEDS: QUEtiapine 25 MG Tablet 12.5 MG PO (20:01)
[2024-07-27] MEDS: Pantoprazole Sodium 20 MG Tablet PO (20:01)
[2024-07-27] MEDS: Atorvastatin Calcium 80 MG Tablet PO (20:04)
[2024-07-27] MEDS: Nystatin Powder 15gm Bottle 1 APPLIC TOPICAL (20:04)
--- NOTE | 2024-07-27 21:30 | NURSING ---
pt attempting to exit bed multiple times this evening. teachback method utilized for call light use education with patient demonstrating ability to use call light, but refusing when staff not in room. pt became resistive to care while staff attempting to change soiled brief. threatening to bash staff over the head and later stating I am going to have someone shoot you to staff member. pt educated on hospital policy regarding violence. pt brought to common area for closer monitoring.
[2024-07-28] MEDS: oxyCODONE 5 MG Tablet 2.5 MG PO ×2 (00:28→21:29)
[2024-07-28] MEDS: Acetaminophen 500 MG Tablet 1000 MG PO ×2 (00:29→21:28)
[2024-07-28 07:57] LABS: Absolute Lymphocyte Count 3.05 X10^3/uL (0.83-4.51); Absolute Neutrophil Count 6.1 X10^3/uL (2.0-7.7); Basophil# 0.04 X10^3/uL; Basophil% 0.4 % (0-1); Eosinophil# 0.16 X10^3/uL; Eosinophils% 1.5 % (0-5); Hematocrit 29.6 % (37-47); Lymphocyte # 3.05 X10^3/ul (0.83-4.51); Lymphocyte % 28.9 % (19-41); Mean Corp Hgb Conc 33.8 g/dL (32-36); Mean Corpuscular Hgb 32.2 pg (27.0-32.0); Mean Corpuscular Volume 95.2 fL (81-99); Monocyte# 1.18 X10^3/uL; Monocyte% 11.2 % (0-10); NRBC Flagged by Analyzer 0 % (0-5); Neutrophil # 6.05 X10^3/uL (2.7-7.7); Neutrophil % 57.4 % (47-70); Platelet Count 249 K/mm3 (150-450); RBC Distribution Width CV 14.1 % (11.6-14.6); RBC Distribution Width SD 48.7 fl (35.1-43.9); Red Blood Count 3.11 M/mm3 (4.2-5.4); White Blood Count 10.5 K/mm3 (4.4-11.0)
[2024-07-28] MEDS: Potassium Chloride Oral Tablet 20 MEQ PO (09:57)
[2024-07-28] MEDS: Aspirin E.C. 81 MG Tablet PO (09:57)
[2024-07-28] MEDS: APIXABAN 5 MG TABLET PO ×2 (09:58→21:28)
[2024-07-28] MEDS: Furosemide 40 MG Tablet PO (09:58)
[2024-07-28] MEDS: Ramipril 2.5 MG Capsule PO (09:58)
[2024-07-28 09:59] VITALS: BP 132/60; PULSE 60
[2024-07-28] MEDS: Cefdinir 300 MG Capsule PO ×2 (09:59→21:27)
[2024-07-28] MEDS: Escitalopram Oxalate 20 MG Tablet PO (09:59)
[2024-07-28] MEDS: Metoprolol Tartrate 25 MG Tablet 12.5 MG PO ×2 (09:59→21:27)
[2024-07-28] MEDS: Clopidogrel Bisulfate 75 MG Tablet PO (10:00)
[2024-07-28] MEDS: Senna/Docusate Sodium 1 Tablet 2 TABLET PO ×2 (10:00→21:27)
[2024-07-28] MEDS: Nystatin Powder 15gm Bottle 1 APPLIC TOPICAL ×2 (10:02→21:36)
[2024-07-28] MEDS: 0.9% Saline Lock 10 ML Syringe IV (10:05)
[2024-07-28 10:11] VITALS: BP 132/60; PULSE 60; RESP 18; TEMP 36.2; O2SAT 96
[2024-07-28 10:11] LABS: Anion Gap 17 (5-15); BUN 47 mg/dL (4-19); BUN/Creat Ratio 19.5 RATIO (10-20); Calcium 9.2 mg/dL (7.6-11.0); Carbon Dioxide 22.1 mmol/L (22.0-29.0); Chloride 96 mmol/L (96-108); Creatinine, Serum 2.4 mg/dL (0.6-1.0); EST Glomerular Filtration Rate 21 (>60); Estimated Creatinine Clearance 22.14 ml/min; Glucose 100 mg/dL (70-99); Potassium 3.7 mmol/L (3.3-5.1); Sodium Level 135 mmol/L (133-145)
[2024-07-28] MEDS: Tuberculin,Purif.prot.deriv. 50 TU/ML Vial 0.1 ML ID (11:09)
--- NOTE | 2024-07-28 15:53 | CASEMGMT ---
Social Work SW first introduced self and role to pt during lunch hour while pt was in the dining room. SW assisted with setting pt up with meal. Pt pleasant and kind. During that interaction, pt pointed her finger out the window saying, look at the boy in the middle of the parking lot! do you see that boy?!. SW redirected stated there was a rooftop out the window and no people were on the roof. Pt sighed and stated, really? I'm doing it again? Awe, I thought I was done with that. SW provided comfort and empathy. Ensured pt was set up for meal and will return to complete assessment at a later time. - SW met with patient at bedside to complete initial assessment. Verified contacts and code status as DNR-CCA, no intubation. Educated to Medicare benefit and copay coverage. Pt's goal is to return to [facility]. As SW was exiting room, pt asked if this worker would shut her door to her apartment to not let the outside in and for privacy. SW redirected to [facility], and suggested to keep door open to ensure easy access and visibility to pt for safety. Pt agreed. SW will continue to follow for DC planning and support. - SW phoned dtr to provide update. Dtr appreciative. Leonie Giordano CYTOMETRY TECHNOLOGIST ELECTRIC MOTOR ASSEMBLER AND TESTER
--- NOTE | 2024-07-28 17:42 | NURSING ---
PT REFUSED SUPPER. STATED SHE JUST WANTED TO SLEEP. CHECKED ON PT LATER AND PT WAS TALKING TO HER SELF.
--- NOTE | 2024-07-28 18:18 | NURSING ---
PT STATED TO THIS NURSE THAT SHE HASN'T PEED. THIS NURSE BLADDER SCANNED PT FOR 374. PT THEN STATED I HAVE TO PEE NOW. PT STARTED PEEING IN ATTENDS. PT STATED PAULETTE DONE,THIS NURSE BLADDER SCANNED PT AGAIN AND GOT 74. THIS NURSE AND AID CLEANED PT UP AND TURNED PT ON HER SIDE PER HER REQUEST. CALL LIGHT IN REACH AND PA ON. WILL CONTINUE TO MONITOR.
[2024-07-28 21:19] VITALS: BP 139/55; PULSE 66
[2024-07-28 21:27] VITALS: BP 139/55; PULSE 66
[2024-07-28] MEDS: Mirtazapine 15 MG Tablet 7.5 MG PO (21:27)
[2024-07-28] MEDS: Atorvastatin Calcium 80 MG Tablet PO (21:27)
[2024-07-28] MEDS: Pantoprazole Sodium 20 MG Tablet PO (21:28)
[2024-07-28] MEDS: QUEtiapine 25 MG Tablet 12.5 MG PO (21:28)
[2024-07-29 04:26] VITALS: PULSE 64; RESP 16; O2SAT 96
[2024-07-29 05:11] VITALS: TEMP 36.3
--- NOTE | 2024-07-29 05:11 | NURSING ---
C/o sore throat and intermittent dry cough observed. Spo2 @96% on RA, no resp distress observed or reported. Afebrile. Written communication left for Dr. Daniel
[2024-07-29 09:51] VITALS: BP 98/43; PULSE 62; RESP 17; TEMP 36.6; O2SAT 90
[2024-07-29] MEDS: Aspirin E.C. 81 MG Tablet PO (09:57)
[2024-07-29] MEDS: Potassium Chloride Oral Tablet 20 MEQ PO (09:57)
[2024-07-29] MEDS: APIXABAN 5 MG TABLET PO ×2 (09:58→21:39)
[2024-07-29] MEDS: Nystatin Powder 15gm Bottle 1 APPLIC TOPICAL ×2 (09:58→21:40)
[2024-07-29] MEDS: Escitalopram Oxalate 20 MG Tablet PO (09:58)
[2024-07-29] MEDS: Clopidogrel Bisulfate 75 MG Tablet PO (09:59)
[2024-07-29] MEDS: Senna/Docusate Sodium 1 Tablet 2 TABLET PO ×2 (09:59→21:40)
[2024-07-29] MEDS: Cefdinir 300 MG Capsule PO (09:59)
[2024-07-29 12:14] VITALS: BP 126/52; PULSE 59
[2024-07-29 12:15] VITALS: PULSE 59
[2024-07-29] MEDS: Metoprolol Tartrate 25 MG Tablet 12.5 MG PO ×2 (12:15→21:50)
[2024-07-29] MEDS: Ramipril 2.5 MG Capsule PO (12:17)
--- NOTE | 2024-07-29 14:08 | PCM.PN.DRR ---
Documented by User: Gris Kee 07/29/24 14:51 TCU RX Drug Regimen Review Subjective/Objective Subjective/Objective Subjective: TCU Admission. 74 YOF presented to the ER with weakness. Hospitalized for falls, encephalopathy 2/2 nstemi (underwent stents x 3, angioplasty), acute HFrEF, complicated by urinary tract infection. Admitted to TCU with debility for strengthening and rehabilitation. Objective: Allergies acetaminophen (From Vicodin) Allergy (Intermediate, Verified 07/24/24 11:05) Hives fluoxetine (From Prozac) Allergy (Intermediate, Verified 07/24/24 11:05) Nausea hydrocodone (From Vicodin) Allergy (Intermediate, Verified 07/24/24 11:05) Hives promethazine (From Phenergan) Allergy (Intermediate, Verified 07/24/24 11:05) Itching sulfamethoxazole (From Bactrim) Adverse Reaction (Severe, Verified 07/24/24 11:05) renal failure hyperkalemia trimethoprim (From Bactrim) Adverse Reaction (Severe, Verified 07/24/24 11:05) renal failure hyperkalemia Current Medications Generic Name Dose Route Start Last Admin Trade Name Freq PRN Reason Stop Dose Admin Acetaminophen 1,000 mg 07/27/24 19:20 07/28/24 21:28 Acetaminophen 500 Mg Tablet PO 1,000 mg Q6H PRN Administration Pain Score 1-5 Apixaban 5 mg 07/27/24 22:00 07/29/24 09:58 Apixaban 5 Mg Tablet PO 5 mg BID TREMAYNE Administration Aspirin 81 mg 07/28/24 08:00 07/29/24 09:57 Aspirin E.C. 81 Mg Tablet PO 08/23/24 23:59 81 mg BREAKFAST TREMAYNE Administration Atorvastatin Calcium 80 mg 07/27/24 22:00 07/28/24 21:27 Atorvastatin Calcium 80 Mg Tablet PO 80 mg QHS TREMAYNE Administration Calamine/Phenol 1 applic 07/28/24 22:00 07/29/24 12:17 Menthol/Lanolin/Calamine/Znox 113 Gm Tube TOPICAL Not Given BID [facility] Protocol Cefdinir 300 mg 07/30/24 10:00 Cefdinir 300 Mg Capsule PO 07/30/24 10:01 DAILY TREMAYNE Clopidogrel Bisulfate 75 mg 07/28/24 10:00 07/29/24 09:59 Clopidogrel Bisulfate 75 Mg Tablet PO 75 mg DAILY TREMAYNE Administration Ergocalciferol 1.25 mg 07/31/24 08:00 Ergocalciferol 1.25 Mg (50, 000 Unit) Capsule PO SA [facility] Escitalopram Oxalate 20 mg 07/28/24 10:00 07/29/24 09:58 Escitalopram Oxalate 20 Mg Tablet PO 20 mg DAILY TREMAYNE Administration Furosemide 40 mg 07/28/24 10:00 07/28/24 09:58 Furosemide 40 Mg Tablet PO 40 mg DAILY TREMAYNE Administration Protocol Guaifenesin 10 ml 07/29/24 07:36 Guaifenesin Dm 10 Ml Udc PO Q6H PRN PRN COUGH/CONGESTION Magnesium Citrate 300 ml 07/27/24 19:25 Magnesium Citrate 300 Ml PO DAILY PRN Constipation Metoprolol Tartrate 12.5 mg 07/27/24 22:00 07/29/24 12:15 Metoprolol Tartrate 25 Mg Tablet PO 12.5 mg BID TREMYANE Administration Protocol Mirtazapine 7.5 mg 07/28/24 22:00 07/28/24 21:27 Mirtazapine 15 Mg Tablet PO 7.5 mg QHS TREMAYNE Administration Nystatin 1 applic 07/27/24 22:00 07/29/24 09:58 Nystatin Powder 15gm Bottle TOPICAL 1 applic BID [facility] Administration Protocol Oxycodone HCl 2.5 mg 07/27/24 19:23 07/28/24 21:29 Oxycodone 5 Mg Tablet PO 2.5 mg Q4H PRN PRN Administration Pain Score 1-10 or Pre PT/OT Pantoprazole Sodium 20 mg 07/27/24 22:00 07/28/24 21:28 Pantoprazole Sodium 20 Mg Tablet PO 20 mg QHS TREMAYNE Administration Potassium Chloride 20 meq 07/28/24 08:00 07/29/24 09:57 Potassium Chloride Oral Tablet 20 Meq PO 20 meq DAILYCM TREMAYNE Administration Quetiapine Fumarate 12.5 mg 07/27/24 21:00 07/28/24 21:28 Quetiapine 25 Mg Tablet PO 12.5 mg QPM TREMAYNE Administration Protocol Ramipril 2.5 mg 07/28/24 10:00 07/29/24 12:17 Ramipril 2.5 Mg Capsule PO 2.5 mg DAILY TREMAYNE Administration Protocol Senna/Docusate Sodium 2 tablet 07/27/24 22:00 07/29/24 09:59 Senna/Docusate Sodium 1 Tablet PO 2 tablet BID TREMAYNE Administration Sodium Chloride 10 - 40 ml 07/27/24 18:06 07/28/24 10:05 0.9% Saline Lock 10 Ml Syringe IV 20 ml UD PRN Administration SALINE FLUSH Throat Lozenges 1 lozenge 07/29/24 07:36 Benzocaine/Menthol 1 Lozenge MUCOUS MEM Q2H PRN PRN SORE THROAT Tuberculin PPD 0.1 ml 08/04/24 10:00 Tuberculin,Purif.Prot.Deriv. 50 Tu/Ml Vial ID 08/04/24 10:01 X1 ONE Problem List Hypokalemia (Acute) Coronary artery disease (Acute) Depression (Acute) Vitamin D deficiency (Acute) GERD (gastroesophageal reflux disease) (Acute) Atrial fibrillation (Acute) Essential (primary) hypertension (Acute) Urinary tract infection (Acute) Acute HFrEF (heart failure with reduced ejection fraction) (Acute) Acute encephalopathy (Acute) Multiple falls (Acute) Debility (Acute) Non-ST elevation IN (NSTEMI) (Acute) COPD (chronic obstructive pulmonary disease) (Chronic) Hyperlipidemia (Chronic) Vital Signs Temp Pulse Resp BP Pulse Ox O2 Del Method 97.9 F 59 L 17 126/52 H 90 Room Air 07/29/24 09:51 07/29/24 12:15 07/29/24 09:51 07/29/24 12:14 07/29/24 09:51 07/29/24 09:51 Oxygen Delivery Method Room Air Weight: 97.976 kg Body Mass Index (BMI) 39.4 Sodium 135 mmol/L (133-145) 07/28/24 07:39 Potassium 3.7 mmol/L (3.3-5.1) 07/28/24 07:39 Carbon Dioxide 22.1 mmol/L (22.0-29.0) 07/28/24 07:39 Anion Gap 17 (5-15) H 07/28/24 07:39 BUN 47 mg/dL (4-19) H 07/28/24 07:39 Creatinine 2.4 mg/dL (0.6-1.0) H 07/28/24 07:39 Est GFR (MDRD) Non-Af 21 (>60) L 07/28/24 07:39 BUN/Creatinine Ratio 19.5 RATIO (10-20) 07/28/24 07:39 Glucose 100 mg/dL (70-99) H 07/28/24 07:39 Assessment/Plan: 1. Pain: acetaminophen 1000mg PO Q6H PRN pain (1-5) and oxycodone 2.5mg PO Q4H PRN pain (6-10). Resident has had 2 doses of both medications for pain scores of 8 and 9 for foot pain and generalized pain. Please continue to monitor for increased pain, PRN usage, constipation, respiratory depression and falls (BEERs). 2. Bowel: senna/docusate 2T PO BID and magnesium citrate 300mL PO daily PRN constipation. No PRN doses have been given. Please continue to monitor for constipation and PRN usage. Last documented bowel movement was 07/29. 3. K. pneumoniae UTI: cefdinir 300mg PO daily thru 07/30/24. Frequency changed to daily due to CrCl of 22 mL/min. Please continue to monitor for S/S of infection, diarrhea, stool discoloration and renal function. 4. CAD s/p stents x3/atrial fibrillation/HFrEF: metoprolol tartrate 12.5mg PO BID, ramipril 2.5mg PO daily, furosemide on hold, aspirin 81mg PO daily thru 08/23/24 and apixaban 5mg PO BID. Please see physician note regarding antiplatelet and anticoagulation. Please continue to monitor HR (last 59), BP (last 126/52), renal function, potassium (last 3.7mmol/L), cough, S/S of bleeding/bruising, hemoglobin (last 10g/dL). 5. Hyperlipidemia: atorvastatin 80mg PO QHS. Please consider ordering a lipid panel (last 2016) if clinically appropriate. Thanks. Please continue to monitor LFTs (last 07/27/24) and muscle pain. 6. GERD: pantoprazole 20mg PO QHS. Please continue to monitor for S/S of GERD and diarrhea (BEERs). 7. Hypokalemia: potassium chloride 20mEq PO daily. Please continue to monitor potassium (last 3.7mmol/L). 8. Vitamin D deficiency: ergocalciferol 1.25mg PO weekly. Please consider ordering a vitamin D level as there is no level in the chart. Thanks. 9. Tinea Corporis: Nystatin powder topical bid. Please continue to monitor. 10. Cough/congestion/sore throat: guaifenesin DM 10mL PO Q6H PRN congestion/cough and Cepacol 1 lozenge MM Q2H PRN sore throat. No PRN doses have been given. Please continue to monitor for PRN usage, congestion, sore throat and cough. Assessment/Plan for indications treated with psychotropic medications: 1. Depression: escitalopram 20mg PO daily. Please see physician note regarding GDR. Please continue to monitor for suicidal ideation (black box warning), sodium (BEERs, last 135mmol/L) and falls/fractures (BEERs). 2. Visual hallucinations: quetiapine 12.5mg PO QPM. Please see physician note regarding GDR. Please continue to monitor for dementia/delirium (BEERs), falls/fractures (BEERs), weight gain, sodium (BEERs). 3. Insomnia: mirtazapine 7.5mg PO QHS. This medication just started, GDR not appropriate at this time. Please continue to monitor for improvement in insomnia and excessive daytime drowsiness, sodium (BEERs) and suicidal ideation (BEERs). Medical chart and medication regimen reviewed. The following medication irregularities or issues were identified: 1. Atorvastatin 80mg PO QHS. Please consider ordering a lipid panel (last 2016) if clinically appropriate. Thanks. 2. Ergocalciferol 1.25mg PO weekly. Please consider ordering a vitamin D level as there is no level in the chart. Thanks. Date Date of Note: 07/29/24 Documented by User: Dr. Kirk Daniel MD 07/29/24 17:23 TCU RX Drug Regimen Review Provider Comments Provider responsibility Provider Comments to Recommendations by Pharmacy Agree
[2024-07-29] MEDS: QUEtiapine 25 MG Tablet 12.5 MG PO (21:38)
[2024-07-29] MEDS: Acetaminophen 500 MG Tablet 1000 MG PO (21:38)
[2024-07-29] MEDS: Atorvastatin Calcium 80 MG Tablet PO (21:39)
[2024-07-29] MEDS: Pantoprazole Sodium 20 MG Tablet PO (21:42)
[2024-07-29] MEDS: Mirtazapine 15 MG Tablet 7.5 MG PO (21:43)
[2024-07-29 21:50] VITALS: BP 118/45; PULSE 62
[2024-07-29] MEDS: Menthol/Lanolin/Calamine/Znox 113 GM Tube 1 APPLIC TOPICAL (22:00)
[2024-07-29] MEDS: 0.9% Saline Lock 10 ML Syringe IV (22:00)
--- NOTE | 2024-07-30 05:43 | NURSING ---
Confusion and hallucinations continue. Patient c/o dizziness with rolling/laying down. Written communication left for Dr. Daniel
[2024-07-30 08:50] LABS: Anion Gap 14 (5-15); BUN 61 mg/dL (4-19); BUN/Creat Ratio 20.8 RATIO (10-20); Calcium 8.8 mg/dL (7.6-11.0); Carbon Dioxide 21.8 mmol/L (22.0-29.0); Chloride 98 mmol/L (96-108); Cholesterol 117 mg/dL (<=200); Creatinine, Serum 2.95 mg/dL (0.70-1.20); EST Glomerular Filtration Rate 16 (>60); Estimated Creatinine Clearance 18.01 ml/min; Glucose 105 mg/dL (70-99); High Density Lipoprotein 50 mg/dL; Low Density Lipoprotein Calc. 41 mg/dL; Potassium 3.7 mmol/L (3.3-5.1); Sodium Level 134 mmol/L (133-145); Triglycerides 130 mg/dL; Very Low Density Lipoprotein 26 mg/dL (5-40); cholesterol:hdl ratio screen 2.32
[2024-07-30 10:15] VITALS: BP 126/50; PULSE 58; RESP 16; TEMP 36.4; O2SAT 99
[2024-07-30] MEDS: Aspirin E.C. 81 MG Tablet PO (10:17)
[2024-07-30] MEDS: Potassium Chloride Oral Tablet 20 MEQ PO (10:17)
[2024-07-30 10:18] VITALS: PULSE 58
[2024-07-30] MEDS: Ramipril 2.5 MG Capsule PO (10:18)
[2024-07-30] MEDS: Menthol/Lanolin/Calamine/Znox 113 GM Tube 1 APPLIC TOPICAL ×2 (10:18→21:41)
[2024-07-30] MEDS: Metoprolol Tartrate 25 MG Tablet 12.5 MG PO ×2 (10:18→21:47)
[2024-07-30] MEDS: APIXABAN 5 MG TABLET PO ×2 (10:18→21:51)
[2024-07-30] MEDS: Escitalopram Oxalate 20 MG Tablet PO (10:18)
[2024-07-30] MEDS: Clopidogrel Bisulfate 75 MG Tablet PO (10:22)
[2024-07-30] MEDS: Cefdinir 300 MG Capsule PO (10:22)
--- NOTE | 2024-07-30 11:30 | NURSING ---
Operations Intern Note; Activity Asst: Chris Carrero is independent in her choice of daily activities. She prefers to be around others. She will color in the day room and own room, watch tv, read, use her tablet, smartphone and visits with family, friends and doctor osteopathic. Alise would like to sit in the day room and socialize w/other when available. Staff will remind her of weekly activities, encourage social activities and respect her right to say no.
[2024-07-30] MEDS: 0.9% Saline Lock 10 ML Syringe IV (11:32)
[2024-07-30] MEDS: Nystatin Powder 15gm Bottle 1 APPLIC TOPICAL ×2 (11:33→21:53)
[2024-07-30 15:30] VITALS: O2SAT 97
--- NOTE | 2024-07-30 15:55 | CHAPLAIN ---
Type of Pastoral Visit _x__ Initial Visit ___ Follow-up Visit ___ On-call Visit ___ General Patient Visit ___ Spiritual Assessment ___ Family Conference ___ Bereavement ___ Rapid Response ___ Code Blue ___ Other (describe below) Pastoral Care Referral From _x__ Patient ___ Family ___ Nurse ___ Physician ___ Fiberglass Machine Operator ___ Toll Settlement Clerk ___ Other (describe below) Sacrament/Intervention _x__ Active listening ___ Anointing ___ Restoration ___ Bereavement ___ Communion ___ Amanda exploration ___ ___ Life review ___ Prayer ___ Reconciliation ___ Sacrament of Sick _x__ Supportive presence ___ Wedding ___ Other (describe below) Pastoral Comments patient has a visitor which is a grandson; kept the visit brief so family could have time together; pt reports that she was surprised to learn that she had a silent heart attack but that she is also slowly recovering from her surgery; pt speaks of her amanda in God and the many prayers that she appreciates
[2024-07-30] MEDS: QUEtiapine 25 MG Tablet 12.5 MG PO (21:42)
[2024-07-30] MEDS: Atorvastatin Calcium 80 MG Tablet PO (21:42)
[2024-07-30] MEDS: Pantoprazole Sodium 20 MG Tablet PO (21:42)
[2024-07-30] MEDS: Mirtazapine 15 MG Tablet 7.5 MG PO (21:43)
[2024-07-30 21:47] VITALS: PULSE 60
[2024-07-30] MEDS: oxyCODONE 5 MG Tablet 2.5 MG PO (23:33)
[2024-07-30] MEDS: Acetaminophen 500 MG Tablet 1000 MG PO (23:34)
[2024-07-31] MEDS: Potassium Chloride Oral Tablet 20 MEQ PO (08:07)
[2024-07-31] MEDS: Ramipril 2.5 MG Capsule PO (08:07)
[2024-07-31] MEDS: Ergocalciferol 1.25 MG (50, 000 UNIT) Capsule PO (08:07)
[2024-07-31] MEDS: Aspirin E.C. 81 MG Tablet PO (08:07)
[2024-07-31] MEDS: Senna/Docusate Sodium 1 Tablet 2 TABLET PO (08:07)
[2024-07-31 08:08] VITALS: PULSE 60
[2024-07-31] MEDS: Menthol/Lanolin/Calamine/Znox 113 GM Tube 1 APPLIC TOPICAL ×2 (08:08→21:31)
[2024-07-31] MEDS: APIXABAN 5 MG TABLET PO ×2 (08:08→21:29)
[2024-07-31] MEDS: Clopidogrel Bisulfate 75 MG Tablet PO (08:08)
[2024-07-31] MEDS: Nystatin Powder 15gm Bottle 1 APPLIC TOPICAL ×2 (08:08→21:36)
[2024-07-31] MEDS: Escitalopram Oxalate 20 MG Tablet PO (08:08)
[2024-07-31] MEDS: Metoprolol Tartrate 25 MG Tablet 12.5 MG PO ×2 (08:08→21:30)
[2024-07-31 10:28] VITALS: BP 131/61; PULSE 60; RESP 18; TEMP 36.4; O2SAT 98
[2024-07-31] MEDS: 0.9% Saline Lock 10 ML Syringe IV (11:37)
[2024-07-31] MEDS: 0.9% Normal Saline (1000mL) 1,000 ML 60 ML IV (11:37)
[2024-07-31] MEDS: Acetaminophen 500 MG Tablet 1000 MG PO (21:25)
[2024-07-31] MEDS: oxyCODONE 5 MG Tablet 2.5 MG PO (21:26)
[2024-07-31] MEDS: Mirtazapine 15 MG Tablet 7.5 MG PO (21:28)
[2024-07-31 21:30] VITALS: PULSE 68
[2024-07-31] MEDS: QUEtiapine 25 MG Tablet 12.5 MG PO (21:30)
[2024-07-31] MEDS: Atorvastatin Calcium 80 MG Tablet PO (21:30)
[2024-07-31] MEDS: Pantoprazole Sodium 20 MG Tablet PO (21:31)
[2024-08-01] MEDS: 0.9% Normal Saline (1000mL) 1,000 ML 60 ML IV (04:11)
[2024-08-01 08:08] VITALS: BP 145/55; PULSE 54; RESP 17; TEMP 36.1; O2SAT 97
[2024-08-01] MEDS: Aspirin E.C. 81 MG Tablet PO (08:13)
[2024-08-01] MEDS: Potassium Chloride Oral Tablet 20 MEQ PO (08:13)
[2024-08-01] MEDS: Menthol/Lanolin/Calamine/Znox 113 GM Tube 1 APPLIC TOPICAL ×2 (08:13→20:53)
[2024-08-01] MEDS: Escitalopram Oxalate 20 MG Tablet PO (08:14)
[2024-08-01] MEDS: Nystatin Powder 15gm Bottle 1 APPLIC TOPICAL ×2 (08:14→20:50)
[2024-08-01] MEDS: APIXABAN 5 MG TABLET PO ×2 (08:14→20:47)
[2024-08-01] MEDS: Clopidogrel Bisulfate 75 MG Tablet PO (08:15)
[2024-08-01] MEDS: Senna/Docusate Sodium 1 Tablet 2 TABLET PO (08:15)
[2024-08-01 08:53] LABS: Anion Gap 12 (5-15); BUN 54 mg/dL (4-19); BUN/Creat Ratio 28.1 RATIO (10-20); Calcium 9.3 mg/dL (7.6-11.0); Chloride 105 mmol/L (96-108); Creatinine, Serum 1.91 mg/dL (0.70-1.20); EST Glomerular Filtration Rate 27 (>60); Estimated Creatinine Clearance 27.82 ml/min (50-250); Glucose 103 mg/dL (70-99); Potassium 4.8 mmol/L (3.3-5.1); Sodium Level 135 mmol/L (133-145)
[2024-08-01 10:17] VITALS: BP 131/56; PULSE 50
--- NOTE | 2024-08-01 10:33 | NURSING ---
Updated Dr. Daniel of patient's decreased heart rate. Per Dr. Daniel. HOLD Lopressor 12.5mg. VORB.
[2024-08-01] MEDS: Acetaminophen 500 MG Tablet 1000 MG PO (18:03)
--- NOTE | 2024-08-01 20:12 | CPS ---
pt placed on 2 l/m via nc @[facility] -pt does not want to wear own cpap
[2024-08-01] MEDS: oxyCODONE 5 MG Tablet 2.5 MG PO (20:42)
[2024-08-01 20:45] VITALS: BP 123/48; PULSE 52
[2024-08-01] MEDS: QUEtiapine 25 MG Tablet 12.5 MG PO (20:45)
[2024-08-01] MEDS: Pantoprazole Sodium 20 MG Tablet PO (20:47)
[2024-08-01] MEDS: Mirtazapine 15 MG Tablet 7.5 MG PO (20:48)
[2024-08-01] MEDS: Atorvastatin Calcium 80 MG Tablet PO (20:49)
[2024-08-02 08:54] VITALS: BP 133/58; PULSE 60; RESP 17; TEMP 36.4; O2SAT 94
[2024-08-02] MEDS: Potassium Chloride Oral Tablet 20 MEQ PO (08:56)
[2024-08-02] MEDS: Aspirin E.C. 81 MG Tablet PO (08:56)
[2024-08-02 08:57] VITALS: PULSE 60
[2024-08-02] MEDS: Metoprolol Tartrate 25 MG Tablet 12.5 MG PO ×2 (08:57→20:26)
[2024-08-02] MEDS: Escitalopram Oxalate 20 MG Tablet PO (08:57)
[2024-08-02] MEDS: Menthol/Lanolin/Calamine/Znox 113 GM Tube 1 APPLIC TOPICAL ×2 (08:57→20:36)
[2024-08-02] MEDS: APIXABAN 5 MG TABLET PO ×2 (08:57→20:25)
[2024-08-02] MEDS: Senna/Docusate Sodium 1 Tablet 2 TABLET PO ×2 (08:58→20:24)
[2024-08-02] MEDS: Clopidogrel Bisulfate 75 MG Tablet PO (08:58)
[2024-08-02] MEDS: Nystatin Powder 15gm Bottle 1 APPLIC TOPICAL ×2 (08:58→20:36)
[2024-08-02 10:30] LABS: Anion Gap 9 (5-15); BUN 46 mg/dL (4-19); BUN/Creat Ratio 28.8 RATIO (10-20); Carbon Dioxide 21.3 mmol/L (22.0-29.0); Chloride 108 mmol/L (96-108); EST Glomerular Filtration Rate 33 (>60); Estimated Creatinine Clearance 33.21 ml/min (50-250); Glucose 106 mg/dL (70-99); Potassium 4.9 mmol/L (3.3-5.1); Sodium Level 138 mmol/L (133-145)
--- NOTE | 2024-08-02 10:56 | NURSING ---
Offered covid vaccine, VIS provided. Resident says yes to receiving but has had some confusion while on TCU. Discussed with dtr Kiara as well, she would like to skip for now. They will let nursing know if they change their mind.
--- NOTE | 2024-08-02 11:47 | CASEMGMT ---
Social Work SW completed BIMS (05/16) - did not know the year - and PHQ-2 (00) for MDS assessment. SW offered for pt to eat lunch in the dining room and pt agreed. SW transported pt via recliner to dining room. Pt thought she was in her apartment. SW reoriented. Set pt up with meal tray and engaged in conversation. Leonie Giordano MACHINE BURRER APPRAISER [employer]AND
[2024-08-02] MEDS: 0.9% Saline Lock 10 ML Syringe IV (15:45)
[2024-08-02] MEDS: Acetaminophen 500 MG Tablet 1000 MG PO (15:45)
[2024-08-02 20:22] VITALS: BP 135/54; PULSE 54; RESP 16; O2SAT 100
[2024-08-02] MEDS: Pantoprazole Sodium 20 MG Tablet PO (20:25)
[2024-08-02] MEDS: Mirtazapine 15 MG Tablet 7.5 MG PO (20:25)
[2024-08-02] MEDS: Atorvastatin Calcium 80 MG Tablet PO (20:25)
[2024-08-02 20:26] VITALS: BP 135/54; PULSE 54
[2024-08-02] MEDS: QUEtiapine 25 MG Tablet 12.5 MG PO (20:26)
[2024-08-02] MEDS: oxyCODONE 5 MG Tablet 2.5 MG PO (20:26)
[2024-08-03 06:38] LABS: Anion Gap 7 (5-15); BUN 39 mg/dL (4-19); BUN/Creat Ratio 27.7 RATIO (10-20); Calcium 9.2 mg/dL (7.6-11.0); Carbon Dioxide 23.9 mmol/L (22.0-29.0); Chloride 108 mmol/L (96-108); Creatinine, Serum 1.39 mg/dL (0.70-1.20); EST Glomerular Filtration Rate 40 (>60); Estimated Creatinine Clearance 38.23 ml/min (50-250); Glucose 94 mg/dL (70-99); Potassium 5.1 mmol/L (3.3-5.1); Sodium Level 139 mmol/L (133-145)
[2024-08-03] MEDS: Nystatin Powder 15gm Bottle 1 APPLIC TOPICAL ×2 (09:30→21:13)
[2024-08-03 09:35] VITALS: BP 142/59; PULSE 59
[2024-08-03] MEDS: Metoprolol Tartrate 25 MG Tablet 12.5 MG PO ×2 (09:35→21:11)
[2024-08-03] MEDS: APIXABAN 5 MG TABLET PO ×2 (09:36→21:11)
[2024-08-03] MEDS: Senna/Docusate Sodium 1 Tablet 2 TABLET PO ×2 (09:36→21:13)
[2024-08-03] MEDS: Clopidogrel Bisulfate 75 MG Tablet PO (09:36)
[2024-08-03] MEDS: Aspirin E.C. 81 MG Tablet PO (09:36)
[2024-08-03] MEDS: Escitalopram Oxalate 20 MG Tablet PO (09:36)
[2024-08-03] MEDS: Menthol/Lanolin/Calamine/Znox 113 GM Tube 1 APPLIC TOPICAL ×2 (09:37→21:13)
[2024-08-03 09:40] VITALS: BP 142/59; PULSE 59; RESP 18; TEMP 36.6; O2SAT 99
[2024-08-03 11:40] VITALS: O2SAT 97
[2024-08-03 15:08] LABS: Vitamin D 1,25-Dihydroxy 29.8 pg/mL (24.8-81.5)
[2024-08-03 16:00] VITALS: BMI 40.6
[2024-08-03] MEDS: Acetaminophen 500 MG Tablet 1000 MG PO (19:56)
[2024-08-03 19:58] VITALS: PULSE 59; RESP 16; O2SAT 96
[2024-08-03 21:11] VITALS: BP 140/56; PULSE 60
[2024-08-03] MEDS: Mirtazapine 15 MG Tablet 7.5 MG PO (21:11)
[2024-08-03] MEDS: Atorvastatin Calcium 80 MG Tablet PO (21:12)
[2024-08-03] MEDS: Pantoprazole Sodium 20 MG Tablet PO (21:12)
[2024-08-03] MEDS: QUEtiapine 25 MG Tablet 12.5 MG PO (21:12)
[2024-08-04 02:00] VITALS: PULSE 96; RESP 18; O2SAT 98
[2024-08-04 05:51] LABS: Absolute Lymphocyte Count 3.19 X10^3/uL (0.83-4.51); Absolute Neutrophil Count 3.4 X10^3/uL (2.0-7.7); Basophil# 0.07 X10^3/uL; Basophil% 0.9 % (0-1); Eosinophil# 0.33 X10^3/uL; Eosinophils% 4.2 % (0-5); Hematocrit 30.4 % (37-47); Hemoglobin 9.7 g/dL (12.0-15.0); Lymphocyte # 3.19 X10^3/ul (0.83-4.51); Lymphocyte % 41.1 % (19-41); Mean Corp Hgb Conc 31.9 g/dL (32-36); Mean Corpuscular Hgb 31.3 pg (27.0-32.0); Mean Corpuscular Volume 98.1 fL (81-99); Mean Platelet Vol. 10.1 fl (6.2-12.0); Monocyte# 0.73 X10^3/uL; Monocyte% 9.4 % (0-10); NRBC Flagged by Analyzer 0 % (0-5); Neutrophil # 3.42 X10^3/uL (2.7-7.7); Platelet Count 279 K/mm3 (150-450); RBC Distribution Width CV 13.4 % (11.6-14.6); RBC Distribution Width SD 48.3 fl (35.1-43.9); White Blood Count 7.8 K/mm3 (4.4-11.0)
[2024-08-04] MEDS: Meclizine HCl 25 MG Tablet PO (06:07)
[2024-08-04 06:09] LABS: Anion Gap 10 (5-15); BUN 38 mg/dL (4-19); BUN/Creat Ratio 24.9 RATIO (10-20); Calcium 9.6 mg/dL (7.6-11.0); Carbon Dioxide 21.3 mmol/L (22.0-29.0); Chloride 106 mmol/L (96-108); Creatinine, Serum 1.52 mg/dL (0.70-1.20); EST Glomerular Filtration Rate 36 (>60); Estimated Creatinine Clearance 35.56 ml/min (50-250); Glucose 105 mg/dL (70-99); Potassium 4.7 mmol/L (3.3-5.1); Sodium Level 137 mmol/L (133-145)
[2024-08-04 06:10] VITALS: RESP 18
--- NOTE | 2024-08-04 07:41 | RAD_ITS ---
PROCEDURE: CHEST PA AND LATERAL REASON FOR EXAM: Cough. TECHNIQUE: Frontal and lateral views of the chest. COMPARISON: Chest radiograph dated 07/26/2024. FINDINGS: Lungs: Lungs clear of pneumonia and congestion. Ill-defined opacity projects over the left apex and left 4th rib. Pleura: Mild blunting of the right lateral and both posterior costophrenic angles. Heart: Normal in size and configuration. Mediastinum/Khushi: Unremarkable. Great vessels: Aorta is atherosclerotic and tortuous Bones/soft tissues: Median sternotomy wires are noted RAD/Chest PA and Lateral IMPRESSION: Mild blunting of the costophrenic angles may be due to small amounts of pleural fluid and or thickening. Left upper lobe ill-defined opacity. CT chest may be helpful for further evalu ation if indicated. Reading Location: [place] [id number]
--- NOTE | 2024-08-04 07:41 | RAD_ITS ---
PROCEDURE: ABDOMEN SINGLE VIEW REASON FOR EXAM: Constipation. TECHNIQUE: Three-view supine abdomen. COMPARISON: Abdomen series of 11/27/2021. RAD/Abdomen Single View IMPRESSION: Prominent arterial calcification in prior abdominal surgery again noted. Degenerative changes of the spine are again seen, again most prominent at the l umbar spine, again with lumbar levo rotoscoliosis. No excess stool burden is seen. The bowel-gas pattern is unremarkable. No mas s or mass effect is seen. Reading Location: [id number]
--- NOTE | 2024-08-04 08:25 | NURSING ---
Maturity Checker Note; MDS for 08/03/2024 Complete
[2024-08-04 09:17] VITALS: BP 119/67; PULSE 55; RESP 16; TEMP 36.4; O2SAT 100
[2024-08-04] MEDS: Escitalopram Oxalate 20 MG Tablet PO (09:20)
[2024-08-04] MEDS: Aspirin E.C. 81 MG Tablet PO (09:20)
[2024-08-04] MEDS: APIXABAN 5 MG TABLET PO ×2 (09:20→20:12)
[2024-08-04] MEDS: Menthol/Lanolin/Calamine/Znox 113 GM Tube 1 APPLIC TOPICAL ×2 (09:20→20:14)
[2024-08-04] MEDS: Clopidogrel Bisulfate 75 MG Tablet PO (09:20)
[2024-08-04] MEDS: Nystatin Powder 15gm Bottle 1 APPLIC TOPICAL ×2 (09:20→20:12)
[2024-08-04 09:24] LABS: Bacteria 0 SEEN /hpf (None Seen); Mucous, Urine 0 SEEN /hpf (<or=2+)
[2024-08-04 09:30] LABS: Color, Urine Yellow (Yellow); Glucose, Dipstick Normal (Normal); Ketone-Dipstick Negative (Negative); Leukocyte Esterase-Dipstick 25 /ul (Negative); Nitrite-Dipstick Negative (Negative); Occult Blood-Urine 250 /ul (Negative); Protein-Dipstick 30 mg/dl (Negative); Urine Bilirubin Dipstick Negative (Negative); Urine Clarity Sl. Cloudy (Clear); Urine Urobilinogen Normal (Normal)
[2024-08-04 09:40] LABS: Red Blood Cells-Urine 10-25 SEEN /hpf (0-5)
[2024-08-04 09:41] LABS: Squamous Epithelial Cells - UA 0-5 SEEN /hpf (5-10); White Blood Cells 0-5 SEEN /hpf (0-5)
--- NOTE | 2024-08-04 09:51 | NURSING ---
Updated Dr. Daniel of decreased HR. HOLD 1000 Lopresser 12.5mg PO. VORB.
[2024-08-04] MEDS: Cefdinir 300 MG Capsule PO ×2 (10:10→20:13)
[2024-08-04] MEDS: Tuberculin,Purif.prot.deriv. 50 TU/ML Vial 0.1 ML ID (10:10)
--- NOTE | 2024-08-04 10:40 | CASEMGMT ---
Social Work IDT met with patient and dtr for care plan meeting. Discussed patient's progress in PT/OT/ST/SN. Educated to Medicare benefit. Provided pt with written communication on insurance process and copay coverage during stay. Dtr shared pt's baseline. Pt's falls started about April 2024 d/t increased knee pain. Dtr reports hallucinations with UTI or not sleeping, but not at baseline. Dtr had geripsych/neurology appt was scheduled twice for cog eval, but had to be canceled d/t hospitalizations. Dtr expressed realism to pt likely needing assistance at home at DC and not able to continue living alone. IDT agreed and recommended 24/7 care currently, having family take over meds and finances. Pt is still making progress and no DC date has been set. Will assess recommendations closer to DC date. Dtr and pt expressed understanding. Dtr has access to resources for assistance in the home. SW will continue to follow to assist with DC planning and support. Leonie Giordano REAL ESTATE SALES AGENT RETIREMENT OFFICER
[2024-08-04 20:06] VITALS: BP 161/57; PULSE 61
[2024-08-04 20:12] VITALS: PULSE 61
[2024-08-04] MEDS: Metoprolol Tartrate 25 MG Tablet 12.5 MG PO (20:12)
[2024-08-04] MEDS: Atorvastatin Calcium 80 MG Tablet PO (20:12)
[2024-08-04] MEDS: Pantoprazole Sodium 20 MG Tablet PO (20:13)
[2024-08-04] MEDS: Mirtazapine 15 MG Tablet 7.5 MG PO (20:13)
[2024-08-04] MEDS: Senna/Docusate Sodium 1 Tablet 2 TABLET PO (20:14)
[2024-08-04] MEDS: Acetaminophen 500 MG Tablet 1000 MG PO (20:16)
[2024-08-04] MEDS: QUEtiapine 25 MG Tablet 12.5 MG PO (21:05)
[2024-08-05] MEDS: Acetaminophen 500 MG Tablet 1000 MG PO ×2 (05:51→20:43)
[2024-08-05] MEDS: oxyCODONE 5 MG Tablet 2.5 MG PO ×2 (05:52→20:43)
[2024-08-05] MEDS: Menthol/Lanolin/Calamine/Znox 113 GM Tube 1 APPLIC TOPICAL ×2 (09:30→20:51)
[2024-08-05] MEDS: Nystatin Powder 15gm Bottle 1 APPLIC TOPICAL ×2 (09:30→20:50)
[2024-08-05] MEDS: APIXABAN 5 MG TABLET PO ×2 (09:31→20:46)
[2024-08-05] MEDS: Aspirin E.C. 81 MG Tablet PO (09:31)
[2024-08-05 09:32] VITALS: BP 145/60; PULSE 60
[2024-08-05] MEDS: Metoprolol Tartrate 25 MG Tablet 12.5 MG PO ×2 (09:32→20:45)
[2024-08-05] MEDS: Cefdinir 300 MG Capsule PO ×2 (09:32→20:44)
[2024-08-05] MEDS: Senna/Docusate Sodium 1 Tablet 2 TABLET PO (09:32)
[2024-08-05] MEDS: Escitalopram Oxalate 20 MG Tablet PO (09:32)
[2024-08-05] MEDS: Clopidogrel Bisulfate 75 MG Tablet PO (09:32)
[2024-08-05 09:36] VITALS: BP 145/60; PULSE 60; RESP 18; TEMP 36.4; O2SAT 99
[2024-08-05 11:00] VITALS: PULSE 60; RESP 18; O2SAT 99
[2024-08-05] MEDS: Meclizine HCl 25 MG Tablet PO (20:43)
[2024-08-05 20:45] VITALS: BP 148/58; PULSE 62
[2024-08-05] MEDS: Mirtazapine 15 MG Tablet 7.5 MG PO (20:45)
[2024-08-05] MEDS: Pantoprazole Sodium 20 MG Tablet PO (20:45)
[2024-08-05] MEDS: Atorvastatin Calcium 80 MG Tablet PO (20:45)
[2024-08-05] MEDS: QUEtiapine 25 MG Tablet 12.5 MG PO (20:46)
[2024-08-06 07:52] VITALS: BP 148/98; PULSE 50; RESP 15; TEMP 36.6; O2SAT 100
[2024-08-06] MEDS: Aspirin E.C. 81 MG Tablet PO (08:21)
[2024-08-06] MEDS: APIXABAN 5 MG TABLET PO ×2 (08:22→21:08)
[2024-08-06] MEDS: Menthol/Lanolin/Calamine/Znox 113 GM Tube 1 APPLIC TOPICAL ×2 (08:22→21:08)
[2024-08-06] MEDS: Escitalopram Oxalate 20 MG Tablet PO (08:23)
[2024-08-06] MEDS: Nystatin Powder 15gm Bottle 1 APPLIC TOPICAL ×2 (08:25→21:09)
[2024-08-06] MEDS: Cefdinir 300 MG Capsule PO (08:26)
[2024-08-06] MEDS: Clopidogrel Bisulfate 75 MG Tablet PO (08:27)
[2024-08-06] MEDS: Senna/Docusate Sodium 1 Tablet 2 TABLET PO ×2 (08:27→21:10)
--- NOTE | 2024-08-06 09:37 | NURSING ---
Updated Dr. Daniel of patient's BP and decreased HR. Per Dr. Daniel, GIVE Lopressor 12.5mg PO. VORB.
[2024-08-06 09:54] VITALS: PULSE 50; RESP 15; O2SAT 100
[2024-08-06 10:20] VITALS: BP 148/98; PULSE 60
[2024-08-06] MEDS: Metoprolol Tartrate 25 MG Tablet 12.5 MG PO ×2 (10:20→21:09)
--- NOTE | 2024-08-06 13:55 | NURSING ---
Dr. Daniel reviewed patient's urine culture. Cefdinir was D/C'd by Dr. Daniel. Dr. Daniel placed order.
[2024-08-06 21:04] VITALS: BP 154/84; PULSE 62
[2024-08-06] MEDS: QUEtiapine 25 MG Tablet 12.5 MG PO (21:05)
[2024-08-06 21:09] VITALS: PULSE 62
[2024-08-06] MEDS: Mirtazapine 15 MG Tablet 7.5 MG PO (21:09)
[2024-08-06] MEDS: Pantoprazole Sodium 20 MG Tablet PO (21:10)
[2024-08-06] MEDS: Atorvastatin Calcium 80 MG Tablet PO (21:10)
[2024-08-07] MEDS: Acetaminophen 500 MG Tablet 1000 MG PO ×2 (00:19→22:25)
[2024-08-07] MEDS: oxyCODONE 5 MG Tablet 2.5 MG PO ×2 (00:20→22:26)
[2024-08-07 08:20] VITALS: BP 132/61; PULSE 55; RESP 16; TEMP 36.1; O2SAT 98
[2024-08-07 08:33] VITALS: PULSE 55
[2024-08-07] MEDS: APIXABAN 5 MG TABLET PO ×2 (08:33→22:17)
[2024-08-07] MEDS: Ergocalciferol 1.25 MG (50, 000 UNIT) Capsule PO (08:33)
[2024-08-07] MEDS: Escitalopram Oxalate 20 MG Tablet PO (08:33)
[2024-08-07] MEDS: Aspirin E.C. 81 MG Tablet PO (08:33)
[2024-08-07] MEDS: Metoprolol Tartrate 25 MG Tablet 12.5 MG PO ×2 (08:33→22:16)
[2024-08-07] MEDS: Nystatin Powder 15gm Bottle 1 APPLIC TOPICAL ×2 (08:34→22:17)
[2024-08-07] MEDS: Menthol/Lanolin/Calamine/Znox 113 GM Tube 1 APPLIC TOPICAL ×2 (08:35→22:27)
[2024-08-07] MEDS: Clopidogrel Bisulfate 75 MG Tablet PO (08:35)
[2024-08-07] MEDS: Senna/Docusate Sodium 1 Tablet 2 TABLET PO ×2 (08:36→22:16)
[2024-08-07 22:16] VITALS: BP 157/68; PULSE 57
[2024-08-07] MEDS: Mirtazapine 15 MG Tablet 7.5 MG PO (22:16)
[2024-08-07] MEDS: Atorvastatin Calcium 80 MG Tablet PO (22:17)
[2024-08-07] MEDS: Pantoprazole Sodium 20 MG Tablet PO (22:17)
[2024-08-07] MEDS: QUEtiapine 25 MG Tablet 12.5 MG PO (22:17)
--- NOTE | 2024-08-08 01:38 | PCA ---
This FIELD ADMINISTRATOR was sitting at the computer charting and noticed movement on the camera in Patient room. upon entering room FIELD ADMINISTRATOR found patient with their knees on the floor holding onto the bed rail. FIELD ADMINISTRATOR called Nurse in room for assistance with transferring patient back into bed.
--- NOTE | 2024-08-08 04:42 | NURSING ---
0130;Pt was sleeping in bed. LAB ENGINEER seen movement on camera. LAB ENGINEER went into pts room. Pts feet were initally on floor then she lowered herself to l knee all the while putting pressure on the bed with her arms preventing the pressure sensitive alarm from going off. Staff 2 RN's and 1 LAB ENGINEER assisted pt to floor and used gate belt to assist pt to standing position. Pt denies any injury or pain anywhere. Pt states she was sleeping and rolled over in her sleep and felt her feet hit the floor waking her up. She realized she had rolled out of bed. VSS. Pt was assisted to bathroom after incident. She states she has no pain and did not sustain any injury.
[2024-08-08 05:40] VITALS: O2SAT 95
[2024-08-08 08:20] VITALS: BP 134/55; PULSE 52; RESP 16; TEMP 36.2; O2SAT 99
[2024-08-08] MEDS: Menthol/Lanolin/Calamine/Znox 113 GM Tube 1 APPLIC TOPICAL ×2 (08:24→20:41)
[2024-08-08] MEDS: Nystatin Powder 15gm Bottle 1 APPLIC TOPICAL ×2 (08:24→20:40)
[2024-08-08] MEDS: Senna/Docusate Sodium 1 Tablet 2 TABLET PO (08:25)
[2024-08-08] MEDS: Aspirin E.C. 81 MG Tablet PO (08:25)
[2024-08-08] MEDS: Escitalopram Oxalate 20 MG Tablet PO (08:25)
[2024-08-08] MEDS: APIXABAN 5 MG TABLET PO ×2 (08:25→20:33)
[2024-08-08] MEDS: Clopidogrel Bisulfate 75 MG Tablet PO (08:25)
[2024-08-08 11:13] VITALS: BP 140/49; PULSE 56
[2024-08-08] MEDS: Metoprolol Tartrate 25 MG Tablet 12.5 MG PO ×2 (11:13→20:34)
[2024-08-08] MEDS: oxyCODONE 5 MG Tablet 2.5 MG PO ×2 (11:20→20:35)
[2024-08-08] MEDS: Acetaminophen 500 MG Tablet 1000 MG PO ×2 (11:20→20:35)
--- NOTE | 2024-08-08 13:38 | NURSING ---
contacted daughter to notify about overnight pt fall
--- NOTE | 2024-08-08 14:55 | NURSING ---
switched pt bed to high low bed due to pt rolling out of bed last night
[2024-08-08] MEDS: Pantoprazole Sodium 20 MG Tablet PO (20:33)
[2024-08-08] MEDS: Atorvastatin Calcium 80 MG Tablet PO (20:33)
[2024-08-08 20:34] VITALS: BP 148/62; PULSE 55
[2024-08-08] MEDS: QUEtiapine 25 MG Tablet 12.5 MG PO (20:34)
[2024-08-08] MEDS: Mirtazapine 15 MG Tablet 7.5 MG PO (20:34)
[2024-08-09 07:49] VITALS: BP 156/56; PULSE 50; RESP 15; TEMP 36.5; O2SAT 98
[2024-08-09 10:00] VITALS: PULSE 50; RESP 15; O2SAT 98
[2024-08-09] MEDS: APIXABAN 5 MG TABLET PO ×2 (10:31→21:22)
[2024-08-09] MEDS: Menthol/Lanolin/Calamine/Znox 113 GM Tube 1 APPLIC TOPICAL ×2 (10:31→21:20)
[2024-08-09 10:32] VITALS: PULSE 56
[2024-08-09] MEDS: Metoprolol Tartrate 25 MG Tablet 12.5 MG PO ×2 (10:32→21:38)
[2024-08-09] MEDS: Escitalopram Oxalate 20 MG Tablet PO (10:32)
[2024-08-09] MEDS: Nystatin Powder 15gm Bottle 1 APPLIC TOPICAL ×2 (10:34→21:24)
[2024-08-09] MEDS: Clopidogrel Bisulfate 75 MG Tablet PO (10:35)
[2024-08-09] MEDS: oxyCODONE 5 MG Tablet 2.5 MG PO (12:24)
[2024-08-09] MEDS: Meclizine HCl 25 MG Tablet PO (15:10)
--- NOTE | 2024-08-09 15:11 | NURSING ---
pt complains of dizziness- requested meclizine- meclizine given- will continue to monitor
--- NOTE | 2024-08-09 19:24 | NURSING ---
notified dr walker that dr Ambriz called and was reviewing notes and wanted dr walker to discontinue plavix- and referred him to dr freeman's notes on 07/27 that discontinued plavix- dr ambriz then called back - he spoke to dr freeman- dr freeman changed and wanted the aspirin discontinued- dr walker notified
[2024-08-09 19:41] LABS: Bacteria 0 SEEN /hpf (None Seen); Mucous, Urine 0 SEEN /hpf (<or=2+)
[2024-08-09 19:53] LABS: Color, Urine Yellow (Yellow); Glucose, Dipstick Normal (Normal); Ketone-Dipstick Negative (Negative); Leukocyte Esterase-Dipstick 25 /ul (Negative); Nitrite-Dipstick Negative (Negative); Occult Blood-Urine 250 /ul (Negative); Protein-Dipstick 30 mg/dl (Negative); Urine Bilirubin Dipstick Negative (Negative); Urine Clarity Clear (Clear); Urine Urobilinogen Normal (Normal)
--- NOTE | 2024-08-09 20:47 | NURSING ---
Addendum entered by Ayden Masters 08/09/24 20:57: Dr. Daniel called with new order: Cipro 250mg po bid x7 days, order verified by read back and acknowledged. Original Note: Dr. Daniel updated on urinalysis results via secure backline at this time.
[2024-08-09 21:06] LABS: Red Blood Cells-Urine 50-100 SEEN /hpf (0-5); Squamous Epithelial Cells - UA 0-5 SEEN /hpf (5-10); White Blood Cells 5-10 SEEN /hpf (0-5)
[2024-08-09] MEDS: QUEtiapine 25 MG Tablet 12.5 MG PO (21:21)
[2024-08-09] MEDS: Ciprofloxacin 250 MG Tablet PO (21:22)
[2024-08-09] MEDS: Atorvastatin Calcium 80 MG Tablet PO (21:23)
[2024-08-09] MEDS: Pantoprazole Sodium 20 MG Tablet PO (21:25)
[2024-08-09] MEDS: Mirtazapine 15 MG Tablet 7.5 MG PO (21:26)
[2024-08-09] MEDS: Acetaminophen 500 MG Tablet 1000 MG PO (21:30)
[2024-08-09 21:36] VITALS: BP 143/52; PULSE 52
[2024-08-09 21:38] VITALS: BP 143/52; PULSE 52
[2024-08-10] MEDS: oxyCODONE 5 MG Tablet 2.5 MG PO ×3 (00:40→20:10)
[2024-08-10 09:10] VITALS: BP 145/52; PULSE 51; RESP 16; TEMP 36.4; O2SAT 99
[2024-08-10 09:15] VITALS: PULSE 51
[2024-08-10] MEDS: Escitalopram Oxalate 20 MG Tablet PO (09:15)
[2024-08-10] MEDS: Metoprolol Tartrate 25 MG Tablet 12.5 MG PO ×2 (09:15→20:11)
[2024-08-10] MEDS: Ciprofloxacin 250 MG Tablet PO ×2 (09:15→20:10)
[2024-08-10] MEDS: APIXABAN 5 MG TABLET PO ×2 (09:15→20:11)
[2024-08-10] MEDS: Nystatin Powder 15gm Bottle 1 APPLIC TOPICAL ×2 (09:16→20:11)
[2024-08-10] MEDS: Clopidogrel Bisulfate 75 MG Tablet PO (09:16)
[2024-08-10] MEDS: Menthol/Lanolin/Calamine/Znox 113 GM Tube 1 APPLIC TOPICAL ×2 (09:17→20:11)
[2024-08-10] MEDS: Acetaminophen 500 MG Tablet 1000 MG PO (10:26)
[2024-08-10 10:29] VITALS: PULSE 50
[2024-08-10 12:08] VITALS: BMI 41.5
--- NOTE | 2024-08-10 16:20 | CASEMGMT ---
Social Work SW spoke with pt's dtr to discuss pt's progress and DC plans. SW educated to IDT's recommendation for DC of 24/7 care and cannot be left alone d/t high fall risk. IDT report when pt does not have UTI or is controlled by ATB, pt's cognition is improved, no hallucinations or delusions, not impulsive. However, it is noted that pt has chronic UTIs. Explained pt is benefiting from routine, structure, proper management of diet/meals, medications, medical oversight, and enjoying the socialization. Explained pt is a people pleaser in therapy and tries to exceed previous day's session, but then her knee and great toe become too painful, thus pt is inconsistent. Overall, pt is improving and thriving in environment now that she is controlled. Dtr expressed understanding and agrees. Dtr will discuss with sister, pt may DC to sister's house in [place] as she has a one-story house. Though, sister and DIL do work, and have some time gaps that pt would be left alone. SW offered private duty agencies, [place], and/or palliative care to assist with medical management, showers, socialization, etc. Dtr open to options and will discuss with sister. SW requested dtr to provide outcome to this worker by 08/16. explained goal DC date is by 08/24 as that is pt's 30th day and recert date, and pt will not be approved beyond that date. Dtr expressed understanding and very complimentary of care provided to pt. SW will continue to follow to assist with DC planning and provide support. Leonie Giordano BATTERY ASSEMBLER TELEPHONIC CASE MANAGER
--- NOTE | 2024-08-10 16:33 | CHAPLAIN ---
Type of Pastoral Visit ___ Initial Visit _x__ Follow-up Visit ___ On-call Visit ___ General Patient Visit ___ Spiritual Assessment ___ Family Conference ___ Bereavement ___ Rapid Response ___ Code Blue ___ Other (describe below) Pastoral Care Referral From _x__ Patient ___ Family ___ Nurse ___ Physician ___ Reconnaissance Crewmember ___ Fee Clerk ___ Other (describe below) Sacrament/Intervention _x__ Active listening ___ Anointing ___ Restorationist ___ Bereavement ___ Communion _x__ Amanda exploration ___ _x__ Life review _x__ Prayer ___ Reconciliation ___ Sacrament of Sick ___ Supportive presence ___ Wedding ___ Other (describe below) Pastoral Comments this was a follow up visit after a couple of brief visits held before in past weeks; pt is talkative and open to share her story and appreciation for family and support given; pt is seeing some improvement and expresses hopefulness; pt has strong amanda and wants to have spiritual care support and encouragement too; prayer given as well
--- NOTE | 2024-08-10 17:40 | NURSING ---
Updated Dr. Daniel on patient's increased pitting edema to her bilateral lower extremities. Lasix on HOLD. Order entered by Dr. Daniel to resume Lasix.
[2024-08-10] MEDS: QUEtiapine 25 MG Tablet 12.5 MG PO (20:10)
[2024-08-10] MEDS: Atorvastatin Calcium 80 MG Tablet PO (20:10)
[2024-08-10 20:11] VITALS: PULSE 72
[2024-08-10] MEDS: Pantoprazole Sodium 20 MG Tablet PO (20:11)
[2024-08-10] MEDS: Mirtazapine 15 MG Tablet 7.5 MG PO (20:11)
[2024-08-11 05:59] LABS: Absolute Lymphocyte Count 3.47 X10^3/uL (0.83-4.51); Absolute Neutrophil Count 3.9 X10^3/uL (2.0-7.7); Basophil# 0.05 X10^3/uL; Basophil% 0.6 % (0-1); Eosinophil# 0.25 X10^3/uL; Hematocrit 27.6 % (37-47); Hemoglobin 9.2 g/dL (12.0-15.0); Lymphocyte # 3.47 X10^3/ul (0.83-4.51); Lymphocyte % 41.3 % (19-41); Mean Corp Hgb Conc 33.3 g/dL (32-36); Mean Corpuscular Hgb 31.9 pg (27.0-32.0); Mean Corpuscular Volume 95.8 fL (81-99); Mean Platelet Vol. 9.9 fl (6.2-12.0); Monocyte# 0.73 X10^3/uL; Monocyte% 8.7 % (0-10); NRBC Flagged by Analyzer 0 % (0-5); Neutrophil # 3.86 X10^3/uL (2.7-7.7); Neutrophil % 45.9 % (47-70); Platelet Count 231 K/mm3 (150-450); RBC Distribution Width CV 13.6 % (11.6-14.6); RBC Distribution Width SD 47.7 fl (35.1-43.9); Red Blood Count 2.88 M/mm3 (4.2-5.4); White Blood Count 8.4 K/mm3 (4.4-11.0)
[2024-08-11 06:40] LABS: Anion Gap 8 (5-15); BUN 40 mg/dL (4-19); BUN/Creat Ratio 27.8 RATIO (10-20); Calcium 9.2 mg/dL (7.6-11.0); Carbon Dioxide 23.1 mmol/L (22.0-29.0); Chloride 107 mmol/L (96-108); Creatinine, Serum 1.44 mg/dL (0.70-1.20); EST Glomerular Filtration Rate 38 (>60); Glucose 95 mg/dL (70-99); Potassium 4.4 mmol/L (3.3-5.1); Sodium Level 138 mmol/L (133-145)
[2024-08-11 08:30] VITALS: BP 116/55; PULSE 49; RESP 16; TEMP 36.3; O2SAT 98
[2024-08-11] MEDS: Furosemide 40 MG Tablet PO (08:32)
[2024-08-11] MEDS: Ciprofloxacin 250 MG Tablet PO ×2 (08:32→20:32)
[2024-08-11] MEDS: APIXABAN 5 MG TABLET PO ×2 (08:32→20:27)
[2024-08-11 08:33] VITALS: PULSE 60
[2024-08-11] MEDS: Metoprolol Tartrate 25 MG Tablet 12.5 MG PO ×2 (08:33→20:32)
[2024-08-11] MEDS: Escitalopram Oxalate 20 MG Tablet PO (08:33)
[2024-08-11] MEDS: Nystatin Powder 15gm Bottle 1 APPLIC TOPICAL ×2 (08:35→20:36)
[2024-08-11] MEDS: Clopidogrel Bisulfate 75 MG Tablet PO (08:35)
[2024-08-11] MEDS: Menthol/Lanolin/Calamine/Znox 113 GM Tube 1 APPLIC TOPICAL ×2 (08:36→20:39)
[2024-08-11] MEDS: Acetaminophen 500 MG Tablet 1000 MG PO (20:25)
[2024-08-11] MEDS: oxyCODONE 5 MG Tablet 2.5 MG PO (20:26)
[2024-08-11] MEDS: QUEtiapine 25 MG Tablet 12.5 MG PO (20:30)
[2024-08-11] MEDS: Mirtazapine 15 MG Tablet 7.5 MG PO (20:30)
[2024-08-11] MEDS: Pantoprazole Sodium 20 MG Tablet PO (20:31)
[2024-08-11] MEDS: Atorvastatin Calcium 80 MG Tablet PO (20:31)
[2024-08-11] MEDS: Senna/Docusate Sodium 1 Tablet 2 TABLET PO (20:31)
[2024-08-11 20:32] VITALS: BP 165/83; PULSE 56
[2024-08-12] MEDS: APIXABAN 5 MG TABLET PO ×2 (08:49→19:53)
[2024-08-12] MEDS: Clopidogrel Bisulfate 75 MG Tablet PO (08:49)
[2024-08-12 08:50] VITALS: BP 133/66; PULSE 51
[2024-08-12] MEDS: Escitalopram Oxalate 20 MG Tablet PO (08:50)
[2024-08-12] MEDS: Senna/Docusate Sodium 1 Tablet 2 TABLET PO ×2 (08:50→19:54)
[2024-08-12] MEDS: Metoprolol Tartrate 25 MG Tablet 12.5 MG PO ×2 (08:50→19:55)
[2024-08-12] MEDS: Furosemide 40 MG Tablet PO (08:50)
[2024-08-12 08:51] VITALS: BP 133/66; PULSE 51; RESP 16; TEMP 36.1; O2SAT 100
[2024-08-12] MEDS: Ciprofloxacin 250 MG Tablet PO ×2 (08:51→19:53)
[2024-08-12] MEDS: Nystatin Powder 15gm Bottle 1 APPLIC TOPICAL ×2 (08:51→19:54)
[2024-08-12] MEDS: Menthol/Lanolin/Calamine/Znox 113 GM Tube 1 APPLIC TOPICAL ×2 (08:51→20:02)
[2024-08-12 10:00] VITALS: PULSE 51
[2024-08-12] MEDS: oxyCODONE 5 MG Tablet 2.5 MG PO (19:52)
[2024-08-12] MEDS: Acetaminophen 500 MG Tablet 1000 MG PO (19:52)
[2024-08-12] MEDS: QUEtiapine 25 MG Tablet 12.5 MG PO (19:53)
[2024-08-12] MEDS: Pantoprazole Sodium 20 MG Tablet PO (19:53)
[2024-08-12] MEDS: Atorvastatin Calcium 80 MG Tablet PO (19:53)
[2024-08-12] MEDS: Mirtazapine 15 MG Tablet 7.5 MG PO (19:54)
[2024-08-12 19:55] VITALS: BP 130/70; PULSE 56
[2024-08-13 08:23] VITALS: BP 146/59; PULSE 49; RESP 16; TEMP 36.2; O2SAT 99
[2024-08-13] MEDS: Furosemide 40 MG Tablet PO (08:33)
[2024-08-13] MEDS: Ciprofloxacin 250 MG Tablet PO ×2 (08:33→20:04)
[2024-08-13] MEDS: Clopidogrel Bisulfate 75 MG Tablet PO (08:33)
[2024-08-13] MEDS: APIXABAN 5 MG TABLET PO ×2 (08:33→20:03)
[2024-08-13] MEDS: Escitalopram Oxalate 20 MG Tablet PO (08:33)
[2024-08-13] MEDS: Menthol/Lanolin/Calamine/Znox 113 GM Tube 1 APPLIC TOPICAL ×2 (08:34→20:04)
[2024-08-13] MEDS: Senna/Docusate Sodium 1 Tablet 2 TABLET PO ×2 (08:34→20:02)
[2024-08-13] MEDS: Nystatin Powder 15gm Bottle 1 APPLIC TOPICAL ×2 (08:34→20:04)
[2024-08-13 10:52] VITALS: BP 146/59; PULSE 51
[2024-08-13] MEDS: oxyCODONE 5 MG Tablet 2.5 MG PO (19:58)
[2024-08-13] MEDS: Acetaminophen 500 MG Tablet 1000 MG PO (20:00)
[2024-08-13] MEDS: QUEtiapine 25 MG Tablet 12.5 MG PO (20:01)
[2024-08-13] MEDS: Atorvastatin Calcium 80 MG Tablet PO (20:01)
[2024-08-13] MEDS: Mirtazapine 15 MG Tablet 7.5 MG PO (20:02)
[2024-08-13] MEDS: Pantoprazole Sodium 20 MG Tablet PO (20:03)
[2024-08-14] MEDS: Menthol/Lanolin/Calamine/Znox 113 GM Tube 1 APPLIC TOPICAL ×2 (07:49→20:12)
[2024-08-14] MEDS: Furosemide 40 MG Tablet PO (07:49)
[2024-08-14] MEDS: APIXABAN 5 MG TABLET PO ×2 (07:49→20:12)
[2024-08-14] MEDS: Ergocalciferol 1.25 MG (50, 000 UNIT) Capsule PO (07:49)
[2024-08-14] MEDS: Ciprofloxacin 250 MG Tablet PO ×2 (07:49→20:12)
[2024-08-14] MEDS: Senna/Docusate Sodium 1 Tablet 2 TABLET PO ×2 (07:50→20:11)
[2024-08-14] MEDS: Escitalopram Oxalate 20 MG Tablet PO (07:50)
[2024-08-14] MEDS: Clopidogrel Bisulfate 75 MG Tablet PO (07:50)
[2024-08-14] MEDS: Nystatin Powder 15gm Bottle 1 APPLIC TOPICAL ×2 (07:50→20:13)
[2024-08-14 07:55] VITALS: BP 159/63; PULSE 52; RESP 18; TEMP 36.3; O2SAT 99
[2024-08-14] MEDS: oxyCODONE 5 MG Tablet 2.5 MG PO (20:09)
[2024-08-14] MEDS: Acetaminophen 500 MG Tablet 1000 MG PO (20:10)
[2024-08-14] MEDS: Mirtazapine 15 MG Tablet 7.5 MG PO (20:11)
[2024-08-14] MEDS: Pantoprazole Sodium 20 MG Tablet PO (20:11)
[2024-08-14] MEDS: Atorvastatin Calcium 80 MG Tablet PO (20:12)
[2024-08-14] MEDS: QUEtiapine 25 MG Tablet 12.5 MG PO (20:12)
[2024-08-15] MEDS: oxyCODONE 5 MG Tablet 2.5 MG PO ×2 (01:13→20:06)
[2024-08-15] MEDS: Escitalopram Oxalate 20 MG Tablet PO (08:07)
[2024-08-15] MEDS: Furosemide 40 MG Tablet PO (08:07)
[2024-08-15] MEDS: Clopidogrel Bisulfate 75 MG Tablet PO (08:07)
[2024-08-15] MEDS: Nystatin Powder 15gm Bottle 1 APPLIC TOPICAL ×2 (08:07→20:12)
[2024-08-15] MEDS: APIXABAN 5 MG TABLET PO ×2 (08:07→20:11)
[2024-08-15] MEDS: Menthol/Lanolin/Calamine/Znox 113 GM Tube 1 APPLIC TOPICAL ×2 (08:07→20:12)
[2024-08-15] MEDS: Ciprofloxacin 250 MG Tablet PO ×2 (08:07→20:10)
[2024-08-15] MEDS: Senna/Docusate Sodium 1 Tablet 2 TABLET PO ×2 (08:08→20:11)
[2024-08-15 09:06] VITALS: BP 119/56; PULSE 56; RESP 18; TEMP 36.3; O2SAT 95
[2024-08-15] MEDS: Acetaminophen 500 MG Tablet 1000 MG PO (20:07)
[2024-08-15] MEDS: Pantoprazole Sodium 20 MG Tablet PO (20:09)
[2024-08-15] MEDS: QUEtiapine 25 MG Tablet 12.5 MG PO (20:09)
[2024-08-15] MEDS: Mirtazapine 15 MG Tablet 7.5 MG PO (20:10)
[2024-08-15] MEDS: Atorvastatin Calcium 80 MG Tablet PO (20:10)
[2024-08-16] MEDS: Furosemide 40 MG Tablet PO (09:24)
[2024-08-16] MEDS: Senna/Docusate Sodium 1 Tablet 2 TABLET PO (09:24)
[2024-08-16 09:25] VITALS: BP 141/64; PULSE 68; RESP 18; TEMP 36.3; O2SAT 96
[2024-08-16] MEDS: APIXABAN 5 MG TABLET PO ×2 (09:25→19:50)
[2024-08-16] MEDS: Escitalopram Oxalate 20 MG Tablet PO (09:25)
[2024-08-16] MEDS: Nystatin Powder 15gm Bottle 1 APPLIC TOPICAL ×2 (09:25→19:53)
[2024-08-16] MEDS: Menthol/Lanolin/Calamine/Znox 113 GM Tube 1 APPLIC TOPICAL ×2 (09:25→19:52)
[2024-08-16] MEDS: Ciprofloxacin 250 MG Tablet PO ×2 (09:25→19:52)
[2024-08-16] MEDS: Clopidogrel Bisulfate 75 MG Tablet PO (09:25)
--- NOTE | 2024-08-16 09:30 | CASEMGMT ---
Social Work SW left message with dtr to follow up on pt's DC plans. Will continue to follow. Leonie Giordano BRAZING FURNACE FEEDER RADARMAN
[2024-08-16] MEDS: oxyCODONE 5 MG Tablet 2.5 MG PO ×2 (13:58→19:50)
[2024-08-16] MEDS: Acetaminophen 500 MG Tablet 1000 MG PO (19:50)
[2024-08-16] MEDS: Pantoprazole Sodium 20 MG Tablet PO (19:51)
[2024-08-16] MEDS: QUEtiapine 25 MG Tablet 12.5 MG PO (19:51)
[2024-08-16] MEDS: Mirtazapine 15 MG Tablet 7.5 MG PO (19:51)
[2024-08-16] MEDS: Atorvastatin Calcium 80 MG Tablet PO (19:52)
[2024-08-17] MEDS: Nystatin Powder 15gm Bottle 1 APPLIC TOPICAL ×2 (09:53→19:59)
[2024-08-17] MEDS: Furosemide 40 MG Tablet PO (09:53)
[2024-08-17] MEDS: Clopidogrel Bisulfate 75 MG Tablet PO (09:53)
[2024-08-17] MEDS: Menthol/Lanolin/Calamine/Znox 113 GM Tube 1 APPLIC TOPICAL ×2 (09:53→20:00)
[2024-08-17] MEDS: Escitalopram Oxalate 20 MG Tablet PO (09:53)
[2024-08-17] MEDS: APIXABAN 5 MG TABLET PO ×2 (09:53→19:54)
[2024-08-17] MEDS: Senna/Docusate Sodium 1 Tablet 2 TABLET PO (09:54)
[2024-08-17 10:29] VITALS: BMI 41.6
--- NOTE | 2024-08-17 10:30 | CASEMGMT ---
Addendum entered by Leonie Giordano 08/17/24 15:58: [facility] recanted their acceptance after contacting their clinicians and could not service the zip code. DB spoke with Lacey from [facility] to get further understanding of the change in acceptance. - SW revisited referral from [facility] as they were unable to accommodate ST or SW disciplines. Given there are no other accepting agencies, DB secured [facility] with PT/OT/SN/DONOVAN. SW updated dtr and dtr agreeable. Addendum entered by Leonie Giordano 08/17/24 14:16: Only accepting HHC agency is [facility]. Dtr notified and agreeable. - SW met with pt to notify of DC date chosen by dtr's, but initiated by IDT. NOMNC issued, educated to appeal rights. Pt verbalized understanding and agreed to DC 08/24. pt agreeable to [facility] skilled HHC. SW educated the HHC agency will contact her dtr, Linn, for SOC date, typically 2-3 days after DC, pending PCP signing orders. pt stated she just received a VM to start cardiac rehab. SW educated to scheduled cardiac rehab once HHC is completed. pt agreed. No other needs noted. Original Note: Social Work SW received return message from dtr, stating pt will DC to [facility] [place] on 08/24. Family is requesting skilled HHC, with no preference of agency, acknowledging the area is difficult to secure HHC. Denied DME needs. Dtr to transport at DC. - DB sent referral to multiple HHC agencies via [facility]. Will await outcome. Plan: DC 08/24 to dtr's [facility] PT/OT/ST/SN/[facility]/DB Giordano MEDICAL LAB SPECIALIST CORPORATE TRUST OFFICER
[2024-08-17 16:50] VITALS: BP 159/65; PULSE 65; RESP 16; TEMP 36.7; O2SAT 99
[2024-08-17] MEDS: oxyCODONE 5 MG Tablet 2.5 MG PO (19:53)
[2024-08-17] MEDS: QUEtiapine 25 MG Tablet 12.5 MG PO (19:53)
[2024-08-17] MEDS: Pantoprazole Sodium 20 MG Tablet PO (19:54)
[2024-08-17] MEDS: Mirtazapine 15 MG Tablet 7.5 MG PO (19:54)
[2024-08-17] MEDS: Atorvastatin Calcium 80 MG Tablet PO (19:55)
[2024-08-17] MEDS: Acetaminophen 500 MG Tablet 1000 MG PO (19:57)
--- NOTE | 2024-08-17 20:45 | DS.PCM_ITS ---
Providers Date of Admission: 07/27/24 Primary Care Physician: Dr. Evangelist Henriquez, DO Reason For Visit: NSTEMI Diagnosis Discharge Diagnosis (1) Debility: Status: Acute Code(s): R53.81 - Other malaise (2) Multiple falls: Status: Acute Code(s): R29.6 - Repeated falls (3) Acute encephalopathy: Status: Acute Code(s): G93.40 - Encephalopathy, unspecified (4) Non-ST elevation NE (NSTEMI): Status: Inactive Code(s): I21.4 - Non-ST elevation (NSTEMI) myocardial infarction (5) Acute HFrEF (heart failure with reduced ejection fraction): Status: Acute Code(s): I50.21 - Acute systolic (congestive) heart failure (6) Urinary tract infection: Status: Acute Code(s): N39.0 - Urinary tract infection, site not specified (7) Essential (primary) hypertension: Status: Acute Code(s): I10 - Essential (primary) hypertension (8) Hyperlipidemia: Status: Inactive Code(s): E78.5 - Hyperlipidemia, unspecified Qualifiers: Hyperlipidemia type: unspecified Qualified Code(s): E78.5 - Hyperlipidemia, unspecified (9) COPD (chronic obstructive pulmonary disease): Status: Inactive Code(s): J44.9 - Chronic obstructive pulmonary disease, unspecified Qualifiers: Emphysema type: unspecified (10) Atrial fibrillation: Status: Acute Code(s): I48.91 - Unspecified atrial fibrillation (11) GERD (gastroesophageal reflux disease): Status: Acute Code(s): K21.9 - Gastro-esophageal reflux disease without esophagitis (12) Vitamin D deficiency: Status: Acute Code(s): E55.9 - Vitamin D deficiency, unspecified (13) Depression: Status: Acute Code(s): F32.9 - Major depressive disorder, single episode, unspecified (14) Coronary artery disease: Status: Acute Code(s): I25.10 - Atherosclerotic heart disease of [place] coronary artery without angina pectoris (15) Hypokalemia: Status: Acute Code(s): E87.6 - Hypokalemia Plan 74 year old female with below past medical history hospitalized for falls, encephalopathy 2/2 nstemi (underwent stents x 3, angioplasty), acute HFrEF, complicated by urinary tract infection, admitted to TCU with debility, here for rehabilitation, strengthening, prior to discharge home alone. * Debility - PT/OT. * Cognition - ST. * Pain - Tylenol 1000mg q6 prn pain (1-5), Oxycodone 2.5mg q4 prn pain (6-10> * Bowel - senna/colace 2 tablets bid, Magnesium citrate 300mL daily prn. * Adult immunization - Administer pneumonia vaccine, covid vaccine, flu vaccine as appropriate. * DVT prophylaxis - Eliquis. * Atrial Fibrillation - Metoprolol 12.5mg bid, Eliquis 5mg bid. * Coronary artery disease s/p stents x 3 - Metoprolol 12.5mg bid, Ramipril 2.5mg daily, Plavix 75mg daily thru 07/26/2025, Aspirin 81mg daily thru 08/23/2024, Eliquis 5mg bid. In patient with atrial fibrillation on anticoagulation who undergoes cardiac stent, it is recommended they continue anticoagulation along with dual antiplatelet therapy for 30 days, then stop Aspirin, then stop Plavix after 1 year under discretion of cardiology. * Hyperlipidemia - Atorvastatin 80mg qhs. * K. Pneumoniae UTI - Cefdinir 300mg bid thru 07/30/2024. * Vitamin D deficiency - D 1.25mg qweek. * Depression - Lexapro 20mg daily, stable chronic halfway use, GDR not recommended. * Acute HFrEF - Metoprolol 12.5mg bid, Ramipril 2.5mg daily, Furosemide 40mg daily. * Tinea Corporis - Nystatin powder topical bid. * GERD - Pantoprazole 20mg qhs. * Hypokalemia - KCL 20meq daily. * Visual hallucinations - Seroquel 12.5mg qpm, GDR as visual hallucinations subside. * Insomnia - Mirtazapine 7.5mg qhs. Medications at Discharge Home Medications omeprazole 20 mg capsule,delayed release 20 mg PO QHS Heartburn 06/22/19 cholecalciferol (vitamin D3) 1,250 mcg (50,000 unit) capsule 1 cap PO SA vitamin 07/10/19 escitalopram oxalate 20 mg tablet (Lexapro) 20 mg PO DAILY DEPRESSION 05/15/21 apixaban 5 mg tablet (Eliquis) 5 mg PO BID Anticoagulant #180 tabs 02/16/24 ramipril 2.5 mg capsule (Altace) 2.5 mg PO DAILY blood pressure #90 caps 07/21/24 acetaminophen 500 mg tablet 1,000 mg (2 x 500 mg) PO Q6H PRN Pain Score 1-5 #0 tabs 08/17/24 atorvastatin 80 mg tablet 80 mg PO QHS 30 days #30 tabs 08/17/24 clopidogrel 75 mg tablet 75 mg PO DAILY 30 days #30 tabs 08/17/24 furosemide 40 mg tablet 40 mg PO DAILY 30 days #30 tabs 08/17/24 mirtazapine 15 mg tablet 7.5 mg (1/2 x 15 mg) PO QHS 30 days #15 tabs 08/17/24 quetiapine 25 mg tablet 12.5 mg (1/2 x 25 mg) PO QPM 30 days #15 tabs 08/17/24 Hospital Course Operations None Procedures Cardiac catheterization Summary of Care Provided Minutes Spent on Discharge: 35 Hospital Course: 74 year old female with below past medical history hospitalized for falls, encephalopathy 2/2 nstemi (underwent stents x 3, angioplasty), acute HFrEF, complicated by urinary tract infection, admitted to TCU with debility, here for rehabilitation, strengthening, prior to discharge home alone. 07/31/2024 Cardiac catheterization: CONCLUSIONS CAD as described. Patent 2 out of 2 bypass grafts with severe disease in the proximal SVG to diagonal as described. Successful PTCA of SVG to diagonal and drug-eluting stent to distal and ostial RCA. Discharge 08/24/2024 to daughter's house, [facility] PT/OT/ST/SN/DONOVAN/SW. Physical Exam Const alert General Appearance: cooperative HEENT normocephalic Eyes PERRL and EOMs intact bilaterally Neck supple, no JVD and no carotid bruits Resp normal respiratory effort, normal air movement and clear to auscultation bilaterally Cardio regular rate and regular rhythm GI normal to inspection, nondistended, normoactive bowel sounds, non-tender and non-distended Extremity normal capillary refill General Extremity: Negative for edema Skin no rashes or lesions noted General Skin Exam: no breakdown Psych affect normal Appearance: appropriate Weight / BMI Weight Weight: 103.238 kg Body Mass Index (BMI) 41.6 ABG / Lab / Microbiology Data 08/11/24 05:34 08/11/24 05:34 Microbiology: Microbiology 08/09/24 19:00 Urine, Catheterized Urine Culture - Final Culture exhibits no growth. 08/04/24 09:15 Urine Catheter - Catheter Urine Culture - Final Culture exhibits no growth. 08/04/24 11:46 Mucosa - Nose Respiratory Panel (PCR) - Final 08/04/24 10:12 Nasal Secretion SARS-CoV-2 Antigen (Rapid) - Final 07/29/24 08:32 Mucosa - Nasopharyngeal Respiratory Panel (PCR) - Final 07/29/24 09:20 Nasal Secretion SARS-CoV-2 Antigen (Rapid) - Final D/C Instructions Discharge Diet: No restrictions Discharge Activity: Return to Normal Activity, May Shower and Use Walker Weight Bearing Status: Weight bearing as tolerated Call your doctor if you observe: Fever of 101 or Higher, Inability to urinate, Inability to have a bowel movement, Shortness of breath, Dizziness, Fainting spells, Swelling in the ankles, Chest pain and Uncontrolled pain DC O2, CPAP, BIPAP Needs Home O2 Discharge instructions: No Additional Instructions: Discharge 08/24/2024 to daughter's house, [facility] PT/OT/ST/SN/DONOVAN/SW. Please Follow Up With: Mike Art When: As scheduled. Meaningful Use Info Meaningful Use Meaningful Use Diagnoses (Choose all that apply): AMI AMI/Post PCI/Angioplasty Aspirin given w/in 24hrs of arrival?: Yes ASA at discharge?: Yes Statins at discharge?: Yes Willian/ARB at discharge?: Yes Beta Chikis at discharge?: Yes Done w/ Acute NE measure.: Yes Ischemic Stroke Statin Dosing Therapy Reference: STATIN DOSE THERAPY REFERENCE: * Patients > 75 years receive moderate or high dose statin therapy. * Patients 75 years or YOUNGER should receive HIGH intensity statin dose unless contraindicated. You will be required to document reason for non-treatment if statin daily dose does not meet guidelines. HIGH DOSE STATIN THERAPY DAILY Atorvastatin > than or = to 40 mg Rosuvastatin > than or = to 20 mg Amlodipine + Atorvastatin > than or = to 2.5/40 mg Ezetimibe + Simvastatin 10/80 mg Simvastatin 80mg Discharge Plan Admission Admit Date/Time: 07/27/24 17:54 Primary Reason for Your Visit: Debility. Attending Provider: Kirk Daniel Chi Primary Care Provider: Evangelist Henriquez Instructions Additional Instructions / Restrictions: Discharge 08/24/2024 to daughter's house, [facility] PT/OT/ST/SN/DONOVAN/SW. Discharge Orders/Prescriptions Prescriptions: New quetiapine 25 mg Tablet 12.5 mg PO QPM 30 Days Qty: 15 0RF furosemide 40 mg Tablet 40 mg PO DAILY 30 Days Qty: 30 0RF atorvastatin 80 mg Tablet 80 mg PO QHS 30 Days Qty: 30 0RF clopidogrel 75 mg Tablet 75 mg PO DAILY 30 Days Qty: 30 0RF acetaminophen 500 mg Tablet 1,000 mg PO Q6H PRN (Reason: Pain Score 1-5) Qty: 0 0RF mirtazapine 15 mg Tablet 7.5 mg PO QHS 30 Days Qty: 15 0RF Continued omeprazole 20 mg capsule,delayed release(DR/EC) 20 mg PO QHS cholecalciferol (vitamin D3) 1,250 MCG capsule 1 cap PO SA Patient Comments: TAKE 1 CAPSULE BY MOUTH ONCE A WEEK escitalopram oxalate [Lexapro] 20 mg tablet 20 mg PO DAILY Eliquis 5 mg tablet 5 mg PO BID Qty: 180 3RF ramipril [Altace] 2.5 mg capsule 2.5 mg PO DAILY Qty: 90 3RF Discontinued potassium chloride 10 mEq tablet extended release 20 meq PO DAILY Rx Instructions: Hold if potassium more than 4.5. aspirin 81 MG tablet 81 mg PO DAILY magnesium oxide-Mg AA chelate 300 mg capsule 2 cap PO QHS ascorbic acid (vitamin C) 100 mg tablet 100 mg PO DAILY acetaminophen 650 mg tablet extended release 650 mg PO Q8H PRN (Reason: pain) atorvastatin 80 mg Tablet 80 mg PO QHS Qty: 0 0RF hydrocodone-acetaminophen 5-325 mg Tablet 1 tab PO Q8H PRN PRN (Reason: pain 1-10) 5 Days Qty: 10 0RF nystatin [Nyamyc] 100,000 unit/gram Powder 1 applic topical BID Qty: 0 0RF Protocol: *Topical Application Instructions APPLICATION INSTRUCTIONS: apply to affected areas clopidogrel [Plavix] 75 mg tablet 75 mg PO DAILY Qty: 1 0RF quetiapine [Seroquel] 25 mg tablet 12.5 mg PO QHS Qty: 1 0RF Rx Instructions: Administer at 9 PM nightly furosemide [Lasix] 40 mg tablet 40 mg PO DAILY Qty: 1 0RF Rx Instructions: Start on 07/28/2024 cefdinir 300 mg capsule 300 mg PO BID Qty: 1 0RF Rx Instructions: Start on 07/28/2024 and administer for 3 days then stop the medication metoprolol tartrate 25 mg tablet 12.5 mg PO BID Qty: 90 3RF simvastatin 40 mg tablet 40 mg PO QHS Qty: 90 4RF Referrals / Follow Up: Evangelist Henriquez DO [Primary Care Provider] - (daughter will make appt ) Disposition Disposition (needs filled in before D/C Order can be placed): Home Health Service
[2024-08-18 05:49] LABS: Absolute Lymphocyte Count 3.16 X10^3/uL (0.83-4.51); Absolute Neutrophil Count 3.2 X10^3/uL (2.0-7.7); Basophil# 0.05 X10^3/uL; Basophil% 0.7 % (0-1); Eosinophil# 0.29 X10^3/uL; Eosinophils% 3.9 % (0-5); Hematocrit 27.3 % (37-47); Hemoglobin 9.1 g/dL (12.0-15.0); Lymphocyte # 3.16 X10^3/ul (0.83-4.51); Lymphocyte % 42.4 % (19-41); Mean Corp Hgb Conc 33.3 g/dL (32-36); Mean Corpuscular Hgb 31.5 pg (27.0-32.0); Mean Corpuscular Volume 94.5 fL (81-99); Mean Platelet Vol. 9.8 fl (6.2-12.0); Monocyte% 9.4 % (0-10); NRBC Flagged by Analyzer 0 % (0-5); Neutrophil # 3.23 X10^3/uL (2.7-7.7); Neutrophil % 43.2 % (47-70); Platelet Count 187 K/mm3 (150-450); RBC Distribution Width CV 13.4 % (11.6-14.6); RBC Distribution Width SD 46.4 fl (35.1-43.9); Red Blood Count 2.89 M/mm3 (4.2-5.4); White Blood Count 7.5 K/mm3 (4.4-11.0)
[2024-08-18 06:15] LABS: Anion Gap 9 (5-15); BUN 43 mg/dL (4-19); BUN/Creat Ratio 27.4 RATIO (10-20); Chloride 106 mmol/L (96-108); Creatinine, Serum 1.55 mg/dL (0.70-1.20); EST Glomerular Filtration Rate 35 (>60); Estimated Creatinine Clearance 35.33 ml/min (50-250); Glucose 108 mg/dL (70-99); Potassium 3.8 mmol/L (3.3-5.1); Sodium Level 140 mmol/L (133-145)
[2024-08-18] MEDS: Escitalopram Oxalate 20 MG Tablet PO (10:23)
[2024-08-18] MEDS: Senna/Docusate Sodium 1 Tablet 2 TABLET PO (10:23)
[2024-08-18] MEDS: Furosemide 40 MG Tablet PO (10:23)
[2024-08-18] MEDS: APIXABAN 5 MG TABLET PO ×2 (10:23→20:11)
[2024-08-18] MEDS: Clopidogrel Bisulfate 75 MG Tablet PO (10:24)
[2024-08-18] MEDS: Menthol/Lanolin/Calamine/Znox 113 GM Tube 1 APPLIC TOPICAL ×2 (10:25→20:16)
[2024-08-18] MEDS: Nystatin Powder 15gm Bottle 1 APPLIC TOPICAL ×2 (10:25→20:13)
[2024-08-18 10:32] VITALS: BP 135/57; PULSE 57
[2024-08-18 16:00] VITALS: BP 152/66; PULSE 62; RESP 16; TEMP 36.7; O2SAT 98
[2024-08-18] MEDS: Acetaminophen 500 MG Tablet 1000 MG PO (20:09)
[2024-08-18] MEDS: oxyCODONE 5 MG Tablet 2.5 MG PO (20:09)
[2024-08-18] MEDS: QUEtiapine 25 MG Tablet 12.5 MG PO (20:10)
[2024-08-18] MEDS: Pantoprazole Sodium 20 MG Tablet PO (20:12)
[2024-08-18] MEDS: Atorvastatin Calcium 80 MG Tablet PO (20:12)
[2024-08-18] MEDS: Mirtazapine 15 MG Tablet 7.5 MG PO (20:12)
[2024-08-18 20:32] VITALS: PULSE 60; RESP 18; O2SAT 95
[2024-08-19] MEDS: APIXABAN 5 MG TABLET PO ×2 (09:58→20:41)
[2024-08-19] MEDS: Furosemide 40 MG Tablet PO (09:58)
[2024-08-19] MEDS: Senna/Docusate Sodium 1 Tablet 2 TABLET PO (09:58)
[2024-08-19] MEDS: Escitalopram Oxalate 20 MG Tablet PO (09:58)
[2024-08-19] MEDS: Clopidogrel Bisulfate 75 MG Tablet PO (09:58)
[2024-08-19] MEDS: Nystatin Powder 15gm Bottle 1 APPLIC TOPICAL ×2 (09:59→20:42)
--- NOTE | 2024-08-19 09:59 | CASEMGMT ---
Social Work MARK spoke with [facility] cote, and scheduled therapy training for 08/24. MARK also recommended transport w/c and dtr agreed. - SW sent referral to [facility] via [facility] for 21 in. transport w/c. Leonie Giordano AUDIO PRODUCTION ENGINEER ACCOUNTS RECEIVABLE CLERK
[2024-08-19 10:00] VITALS: PULSE 70; RESP 16; O2SAT 96
[2024-08-19] MEDS: Menthol/Lanolin/Calamine/Znox 113 GM Tube 1 APPLIC TOPICAL ×2 (10:01→21:02)
[2024-08-19 11:50] VITALS: BP 125/73; PULSE 70; RESP 17; TEMP 36.6; O2SAT 96
[2024-08-19] MEDS: oxyCODONE 5 MG Tablet 2.5 MG PO (20:38)
[2024-08-19] MEDS: Acetaminophen 500 MG Tablet 1000 MG PO (20:38)
[2024-08-19] MEDS: Baclofen 10 MG Tablet PO (20:40)
[2024-08-19] MEDS: QUEtiapine 25 MG Tablet 12.5 MG PO (20:41)
[2024-08-19] MEDS: Mirtazapine 15 MG Tablet 7.5 MG PO (20:41)
[2024-08-19] MEDS: Atorvastatin Calcium 80 MG Tablet PO (20:42)
[2024-08-19] MEDS: Pantoprazole Sodium 20 MG Tablet PO (20:42)
[2024-08-20] MEDS: Furosemide 40 MG Tablet PO (09:16)
[2024-08-20] MEDS: Escitalopram Oxalate 20 MG Tablet PO (09:16)
[2024-08-20] MEDS: Clopidogrel Bisulfate 75 MG Tablet PO (09:16)
[2024-08-20] MEDS: Nystatin Powder 15gm Bottle 1 APPLIC TOPICAL ×2 (09:16→20:55)
[2024-08-20] MEDS: Senna/Docusate Sodium 1 Tablet 2 TABLET PO ×2 (09:16→20:50)
[2024-08-20] MEDS: APIXABAN 5 MG TABLET PO ×2 (09:16→20:49)
[2024-08-20] MEDS: Menthol/Lanolin/Calamine/Znox 113 GM Tube 1 APPLIC TOPICAL ×2 (09:17→20:58)
[2024-08-20 09:21] VITALS: BP 116/60; PULSE 60; RESP 18; O2SAT 99
[2024-08-20 20:00] VITALS: PULSE 60; RESP 16; O2SAT 98
[2024-08-20] MEDS: Acetaminophen 500 MG Tablet 1000 MG PO (20:47)
[2024-08-20] MEDS: oxyCODONE 5 MG Tablet 2.5 MG PO (20:47)
[2024-08-20] MEDS: Baclofen 10 MG Tablet PO (20:51)
[2024-08-20] MEDS: Pantoprazole Sodium 20 MG Tablet PO (20:51)
[2024-08-20] MEDS: QUEtiapine 25 MG Tablet 12.5 MG PO (20:52)
[2024-08-20] MEDS: Atorvastatin Calcium 80 MG Tablet PO (20:52)
[2024-08-20] MEDS: Mirtazapine 15 MG Tablet 7.5 MG PO (20:53)
[2024-08-21 06:28] VITALS: RESP 16
[2024-08-21] MEDS: Escitalopram Oxalate 20 MG Tablet PO (09:48)
[2024-08-21] MEDS: Clopidogrel Bisulfate 75 MG Tablet PO (09:48)
[2024-08-21] MEDS: Ergocalciferol 1.25 MG (50, 000 UNIT) Capsule PO (09:48)
[2024-08-21] MEDS: APIXABAN 5 MG TABLET PO ×2 (09:48→21:46)
[2024-08-21] MEDS: Senna/Docusate Sodium 1 Tablet 2 TABLET PO ×2 (09:48→21:45)
[2024-08-21] MEDS: Furosemide 40 MG Tablet PO (09:48)
[2024-08-21] MEDS: Menthol/Lanolin/Calamine/Znox 113 GM Tube 1 APPLIC TOPICAL (09:52)
[2024-08-21] MEDS: Nystatin Powder 15gm Bottle 1 APPLIC TOPICAL (09:53)
[2024-08-21 15:28] VITALS: BP 129/67; PULSE 60; RESP 14; TEMP 36.8; O2SAT 97
[2024-08-21] MEDS: oxyCODONE 5 MG Tablet 2.5 MG PO (21:44)
[2024-08-21] MEDS: Acetaminophen 500 MG Tablet 1000 MG PO (21:45)
[2024-08-21] MEDS: QUEtiapine 25 MG Tablet 12.5 MG PO (21:45)
[2024-08-21] MEDS: Pantoprazole Sodium 20 MG Tablet PO (21:46)
[2024-08-21] MEDS: Mirtazapine 15 MG Tablet 7.5 MG PO (21:46)
[2024-08-21] MEDS: Atorvastatin Calcium 80 MG Tablet PO (21:46)
[2024-08-21] MEDS: Baclofen 10 MG Tablet PO (21:46)
[2024-08-22] MEDS: Escitalopram Oxalate 20 MG Tablet PO (09:23)
[2024-08-22] MEDS: Clopidogrel Bisulfate 75 MG Tablet PO (09:23)
[2024-08-22] MEDS: Furosemide 40 MG Tablet PO (09:23)
[2024-08-22] MEDS: APIXABAN 5 MG TABLET PO ×2 (09:24→20:13)
[2024-08-22] MEDS: Senna/Docusate Sodium 1 Tablet 2 TABLET PO ×2 (09:24→20:15)
[2024-08-22] MEDS: Menthol/Lanolin/Calamine/Znox 113 GM Tube 1 APPLIC TOPICAL ×2 (09:25→20:20)
[2024-08-22] MEDS: Nystatin Powder 15gm Bottle 1 APPLIC TOPICAL ×2 (09:25→20:20)
[2024-08-22 09:26] VITALS: BP 132/59; PULSE 59; RESP 16; TEMP 36.8; O2SAT 100
[2024-08-22] MEDS: Atorvastatin Calcium 80 MG Tablet PO (20:12)
[2024-08-22] MEDS: Pantoprazole Sodium 20 MG Tablet PO (20:12)
[2024-08-22] MEDS: Baclofen 10 MG Tablet PO (20:13)
[2024-08-22] MEDS: Mirtazapine 15 MG Tablet 7.5 MG PO (20:13)
[2024-08-22] MEDS: QUEtiapine 25 MG Tablet 12.5 MG PO (20:14)
[2024-08-22] MEDS: Acetaminophen 500 MG Tablet 1000 MG PO (20:14)
[2024-08-22] MEDS: oxyCODONE 5 MG Tablet 2.5 MG PO (20:14)
[2024-08-23] MEDS: Senna/Docusate Sodium 1 Tablet 2 TABLET PO ×2 (09:22→21:19)
[2024-08-23] MEDS: APIXABAN 5 MG TABLET PO ×2 (09:22→21:19)
[2024-08-23] MEDS: Escitalopram Oxalate 20 MG Tablet PO (09:22)
[2024-08-23] MEDS: Furosemide 40 MG Tablet PO (09:22)
[2024-08-23] MEDS: Clopidogrel Bisulfate 75 MG Tablet PO (09:22)
[2024-08-23] MEDS: Nystatin Powder 15gm Bottle 1 APPLIC TOPICAL ×2 (09:23→21:21)
[2024-08-23] MEDS: Menthol/Lanolin/Calamine/Znox 113 GM Tube 1 APPLIC TOPICAL ×2 (09:23→21:19)
[2024-08-23 09:45] VITALS: BP 128/62; PULSE 63; RESP 18; TEMP 36.8; O2SAT 99
[2024-08-23] MEDS: QUEtiapine 25 MG Tablet 12.5 MG PO (21:19)
[2024-08-23] MEDS: Pantoprazole Sodium 20 MG Tablet PO (21:20)
[2024-08-23] MEDS: Mirtazapine 15 MG Tablet 7.5 MG PO (21:20)
[2024-08-23] MEDS: Baclofen 10 MG Tablet PO (21:20)
[2024-08-23] MEDS: Atorvastatin Calcium 80 MG Tablet PO (21:21)
[2024-08-24 04:25] VITALS: PULSE 64; RESP 16; O2SAT 95
[2024-08-24] MEDS: Menthol/Lanolin/Calamine/Znox 113 GM Tube 1 APPLIC TOPICAL (08:34)
[2024-08-24] MEDS: APIXABAN 5 MG TABLET PO (08:34)
[2024-08-24] MEDS: Escitalopram Oxalate 20 MG Tablet PO (08:34)
[2024-08-24] MEDS: Furosemide 40 MG Tablet PO (08:34)
[2024-08-24] MEDS: Senna/Docusate Sodium 1 Tablet 2 TABLET PO (08:34)
[2024-08-24] MEDS: Clopidogrel Bisulfate 75 MG Tablet PO (08:34)
[2024-08-24] MEDS: Nystatin Powder 15gm Bottle 1 APPLIC TOPICAL (08:35)
[2024-08-24 08:37] VITALS: BP 131/59; PULSE 60
--- NOTE | 2024-08-24 10:36 | CASEMGMT ---
Social Work SW completed BIMS () and PHQ-2 () for MDS assessment. Leonie Giordano AIR CONDITIONING MANAGER JAVA J2EE SOFTWARE ENGINEER
[2024-08-24 12:22] VITALS: BP 148/66; PULSE 60; RESP 18; TEMP 36.3; O2SAT 94
== END 2024-08-24 12:30 | disposition home health service (06) | DRG 949 ==
PROVIDERS: Admitting Provider Family Medicine Geriatric Medicine; PCP Student in an Organized Health Care Education/Training Program; Referring Provider Family Medicine Geriatric Medicine; Visit Provider Family Medicine Geriatric Medicine
DX: Z48.812 Encounter for surgical aftercare following surgery on the circulatory system (principal); I50.43 Acute on chronic combined systolic (congestive) and diastolic (congestive) heart failure; I21.4 Non-ST elevation (NSTEMI) myocardial infarction; I13.0 Hypertensive heart and chronic kidney disease with heart failure and stage 1 through stage 4 chronic kidney disease, or unspecified chronic kidney disease; N39.0 Urinary tract infection, site not specified; B96.1 Klebsiella pneumoniae [K. pneumoniae] as the cause of diseases classified elsewhere; E55.9 Vitamin D deficiency, unspecified; B35.4 Tinea corporis; I25.10 Atherosclerotic heart disease of native coronary artery without angina pectoris; I48.0 Paroxysmal atrial fibrillation; N18.32 Chronic kidney disease, stage 3b; J43.9 Emphysema, unspecified; F32.9 Major depressive disorder, single episode, unspecified; E78.00 Pure hypercholesterolemia, unspecified; K21.9 Gastro-esophageal reflux disease without esophagitis; E87.6 Hypokalemia; W19.XXXD Unspecified fall, subsequent encounter; R44.1 Visual hallucinations; Z95.5 Presence of coronary angioplasty implant and graft; Z79.899 Other long term (current) drug therapy; S22.41XD Multiple fractures of ribs, right side, subsequent encounter for fracture with routine healing
CPT/HCPCS: 36415; 71046; 74018; 80048; 80061; 81001; 82652; 85025; 87086; 87633; 87811; 92507; 92508; 92523; 94667; 94668; 97110; 97116; 97129; 97130; 97162; 97166; 97530; 97535; 97802; A4216

== ENCOUNTER 2024-09-05 09:01 | Inpatient (IN) | payer MEDICARE, OTHER, SELFPAY ==
[2024-09-05] VITALS (10 sets, daily range): BP systolic 139–191; BP diastolic 41–131; PULSE 51–110; RESP 15–22; TEMP 36.4–37; O2SAT 94–98; BMI 42.5; BMI 41.3
--- NOTE | 2024-09-05 09:54 | EDS_ITS ---
HPI History of Present Illness Chief Complaint: Complaint Informant: patient and family (Daughter) Onset/Context/Timing Onset: Days (3) Context: Gradual Onset Timing: Continuous Worsened by: Nothing Relieved by: Nothing Associated Symptoms Associated Symptoms: Visual hallucinations Narrative Narrative: Patient presents with possible urinary tract infection that has been getting worse over the past 3 days. Daughter states that the patient starts having visual hallucinations when she gets urinary tract infections. Daughter states that patient started having some visual hallucinations 2 days ago. Daughter states these seem to be getting worse. Daughter states the patient has been having some urinary frequency but denies any dysuria or hematuria. Patient denies any fevers or chills. Patient denies any nausea or vomiting. [facility] Medical History Altered mental status Congestive heart failure Non-ST elevation OR (NSTEMI) Acute UTI Dyspnea on exertion History of fractured rib Recurrent falls Paroxysmal A-fib Myocardial infarct Left bundle branch block H. pylori infection EBV positive mononucleosis syndrome Left renal stone Knee pain Wears glasses Anxiety Post-menopausal Arthritis High cholesterol Gastric reflux Non-smoker Shortness of breath on exertion History of edema History of echocardiogram History of stress test Cardiology follow-up encounter History of atrial fibrillation GERD (gastroesophageal reflux disease) CPAP (continuous positive airway pressure) dependence Sleep apnea Asthma DVT (deep venous thrombosis) Hydronephrosis Paroxysmal atrial fibrillation Morbid obesity Stage 3b chronic kidney disease (CKD) Microcalcification of right breast on mammogram Erythematous bladder mucosa Left renal stone Kidney stone Essential hypertension Atherosclerotic heart disease of [place] coronary artery without angina pectoris TATIANA (obstructive sleep apnea) Hemorrhoids Depression Atherosclerosis of coronary 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 Chronic diastolic (congestive) heart failure Nonspecific abnormal unspecified cardiovascular function study Abnormal pulmonary function test Obesity TATIANA (obstructive sleep apnea) COPD (chronic obstructive pulmonary disease) Hyperlipidemia Home Medications ?Medication ?Instructions ?Recorded ?Last Taken ?Type omeprazole 20 mg capsule,delayed 20 mg PO QHS Heartbur n 06/22/19 07/23/24 History release cholecalciferol (vitamin D3) 1,250 1 cap PO SA vitamin 07/10/19 07/24/24 History mcg (50,000 unit) capsule escitalopram oxalate 20 mg tablet 20 mg PO DAILY DEPRE SSION 05/15/21 07/27/24 History (Lexapro) apixaban 5 mg tablet (Eliquis) 5 mg PO BID Anticoagula nt #180 tabs 02/16/24 07/24/24 Rx ramipril 2.5 mg capsule (Altace) 2.5 mg PO DAILY blood pressure #90 07/21/24 07/27/24 Rx caps acetaminophen 500 mg tablet 1,000 mg (2 x 500 mg) PO Q 6H PRN 08/17/24 Unknown Rx Pain Score 1-5 #0 tabs atorvastatin 80 mg tablet 80 mg PO QHS 30 days #30 tab s 08/17/24 Unknown Rx clopidogrel 75 mg tablet 75 mg PO DAILY 30 days #30 t abs 08/17/24 Unknown Rx furosemide 40 mg tablet 40 mg PO DAILY 30 days #30 t abs 08/17/24 Unknown Rx mirtazapine 15 mg tablet 7.5 mg (1/2 x 15 mg) PO QHS 30 08/17/24 Unknown Rx days #15 tabs quetiapine 25 mg tablet 12.5 mg (1/2 x 25 mg) PO QPM 30 08/17/24 Unknown Rx days #15 tabs baclofen 10 mg tablet 10 mg PO QHS 30 days #30 tab s 08/24/24 Unknown Rx metoprolol tartrate 25 mg tablet 12.5 mg (1/2 x 25 mg) PO BID #60 08/25/24 Unknown Rx tabs potassium chloride 20 mEq 20 meq PO QDAY 08/25/24 Unkn own History tablet,extended release Allergy/AdvReac Type Severity Reaction Status Date / Time acetaminophen (From Vicodin) Allergy Intermediate Hives Verified 08/25/24 11:03 fluoxetine (From Prozac) Allergy Intermediate Nausea Verified 08/25/24 11:03 hydrocodone (From Vicodin) Allergy Intermediate Hives Verified 08/25/24 11:03 promethazine (From Phenergan) Allergy Intermediate Itching Verified 08/25/24 11:03 sulfamethoxazole (From AdvReac Severe renal Verified 08/25/24 11:03 Bactrim) failure trimethoprim (From Bactrim) AdvReac Severe renal Verified 08/25/24 11:03 failure Family History Father Colon cancer Mother Cancer lung Other Gastric reflux Surgical History History of cardiac catheterization History of cystoscopy History of cholecystectomy History of coronary artery stent placement History of lithotripsy Hx of CABG Postsurgical aortocoronary bypass status Postsurgical percutaneous transluminal coronary angioplasty (PTCA) status S/P coronary artery stent placement (07/26/24) Social History household members: none housing: apartment pets and animals: Yes pets and animals: dog(s) Smoking Status: Never smoker alcohol intake: never substance use type: does not use ROS ROS ED Constitutional Constitutional ED: Denies chills or fever(s) Eyes Eyes: Denies blurry vision or change in vision ENT ENT ED: Denies rhinorrhea or sore throat Cardiovascular Cardiovascular: Denies chest pain or palpitations Respiratory/Chest Respiratory/Chest: Denies cough or dyspnea Gastrointestinal Gastrointestinal: Denies nausea or vomiting Genitourinary Genitourinary ED: Reports urinary frequency; Denies dysuria or hematuria Musculoskeletal Musculoskeletal: Denies back pain or neck pain Integumentary Reports rash; Denies abscess Neurologic Neurologic: Denies headache(s) or weakness Allergic/Immunologic Allergic/Immunologic ED: Denies mouth swelling or urticaria EXAM Physical Exam Const Vital Signs: 09/05/24 09:02 09/05/24 09:05 09/05/24 10:05 Temperature 97.8 F 97.8 F 97.7 F L Temperature Source Oral Oral Oral Pulse Rate 110 H 54 L 53 L Respiratory Rate 18 20 H 16 Blood Pressure 166/80 H 189/67 H 182/102 H Blood Pressure Mean 108 107 128 Pulse Ox 98 96 96 Oxygen Delivery Method Room Air Room Air Room Air 09/05/24 11:00 09/05/24 12:00 09/05/24 13:00 Temperature 98 F 97.6 F L 98.6 F Temperature Source Oral Oral Oral Pulse Rate 51 L 61 61 Respiratory Rate 15 22 H 18 Blood Pressure 191/64 H 144/131 H 144/131 H Blood Pressure Mean 106 135 135 Pulse Ox 98 96 98 Oxygen Delivery Method 09/05/24 13:17 Temperature 98.6 F Temperature Source Pulse Rate 61 Respiratory Rate 18 Blood Pressure 144/131 H Blood Pressure Mean 135 Pulse Ox 98 Oxygen Delivery Method Positive well nourished and well developed Constitutional Narrative: BMI is 42.5 General Appearance ED: well developed and NAD HEENT Reports moist mucous membranes Neck supple and no JVD Resp normal respiratory effort and clear to auscultation bilaterally Cardio regular rate and regular rhythm GI non-tender and non-distended Palpation: soft Neuro oriented x3, CN's II-XII intact bilaterally and no sensory deficits noted Sensorium / Orientation: alert Motor Exam: strength 5/5 throughout Psych mental status grossly normal MDM MDM MDM Narrative Medical decision making narrative: Differential diagnosis includes sepsis, urinary tract infection, electrolyte abnormality, anemia, and dehydration. CBC will be obtained to assess for le ukocytosis and anemia. Basic metabolic profile will be obtained to assess for electrolyte abnormality and renal function. Urinalysis will be obtained to assess for urinary tract infection and hematuria. Serum lactate will be obtained to assess for sepsis. Blood cultures will be obtained to assess for sepsis. Urine culture will be obtained to assess for urinary tract infection. Lab Data Attestation: I reviewed the patient's lab results. Lab results narrative: CBC was reviewed. There is a mild anemia with a hemoglobin of 9.9 and hematocrit 30.8. These are stable compared to previous results. PT with INR and PTT were reviewed. Pro time was 19.0, INR is 1.6, and PTT was 34.2. Basic metabolic profile was reviewed. BUN was elevated at 67 and creatinine was 1.69. These are consistent with previous results. Serum lactate was reviewed and was normal at 1.1. Urinalysis was reviewed. Occult blood was 250 with greater than 100 red blood cells. There is no evidence of urinary tract infection. Labs: Laboratory Results - last 24 hr 09/05/24 09/05/24 09/05/24 09:30 09:56 10:15 WBC 9.3 RBC 3.18 L Hgb 9.9 L Hct 30.8 L MCV 96.9 MCH 31.1 MCHC 32.1 RDW Std Deviation 47.7 H RDW Coeff of Abelardo 13.3 Plt Count 222 MPV 10.2 Immature Gran % (Auto) 0.300 Neut % (Auto) 56.7 Lymph % (Auto) 33.7 [place] % (Auto) 7.1 Eos % (Auto) 1.8 Baso % (Auto) 0.4 Absolute Neuts (auto) 5.3 Absolute Lymphs (auto) 3.14 Nucleated RBC % 0 PT 19.0 H INR 1.6 APTT 34.2 Sodium 138 Potassium 4.7 Chloride 103 Carbon Dioxide 23.1 Anion Gap 11 BUN 67 H Creatinine 1.69 H Estim Creat Clear Calc 32.79 L Est GFR (MDRD) Non-Af 31 L BUN/Creatinine Ratio 39.4 H Glucose 114 H Lactic Acid 1.1 Calcium 9.9 Urine Color Straw Urine Clarity Clear Urine pH 6.0 Ur Specific [place] 1.010 Urine Protein 15 H Urine Glucose (UA) Normal Urine Ketones Negative Urine Occult Blood 250 H Urine Nitrite Negative Urine Bilirubin Negative Urine Urobilinogen Normal Ur Leukocyte Esterase Negative Urine RBC > 100 SEEN Urine WBC 0-5 SEEN Ur Squamous Epith Cells 0 SEEN Ur Transition Epith Cell 0-5 SEEN Urine Bacteria 0 SEEN Urine Mucus 0 SEEN Radiography Diagnostic Testing: Clinical Impression(s) from Imaging Studies Brain CT 09/05/24 11:47 IMPRESSION: 1. No acute intracranial finding. 2. Stable findings of chronic microvascular ischemic changes and age-related changes. Reading Location: [facility] CT scan of the brain was obtained. There is no acute intracranial abnormality. There are chronic microvascular ischemic changes and age-related changes. This was interpreted by the radiologist and was also independently reviewed by myself. Management Discussion w/another healthcare provider: Hospitalist (Dr. Ernandez) Treatment and Re-Evaluation :: Patient was given IV fluids. Patient and family were advised of the findings. Because of the visual hallucinations, I recommended admission to the hospital. Family is agreeable with this. Case was discussed with Dr. Ernandez, hospitalist. He will admit the patient to his service. Patient and family understood and were agreeable with the plan. All questions were answered. Discharge Plan Triage Chief Complaint: Complaint Other Complaint: Confusion ED Provider: Amador Almanzar Dx/Rx/DC Orders Clinical Impression: Visual hallucinations, Confusion, Essential hypertension Prescriptions: No Action omeprazole 20 mg capsule,delayed release(DR/EC) 20 mg PO QHS cholecalciferol (vitamin D3) 1,250 MCG capsule 1 cap PO SA Patient Comments: TAKE 1 CAPSULE BY MOUTH ONCE A WEEK escitalopram oxalate [Lexapro] 20 mg tablet 20 mg PO DAILY quetiapine 25 mg Tablet 12.5 mg PO QPM 30 Days Qty: 15 0RF furosemide 40 mg Tablet 40 mg PO DAILY 30 Days Qty: 30 0RF atorvastatin 80 mg Tablet 80 mg PO QHS 30 Days Qty: 30 0RF clopidogrel 75 mg Tablet 75 mg PO DAILY 30 Days Qty: 30 0RF acetaminophen 500 mg Tablet 1,000 mg PO Q6H PRN (Reason: Pain Score 1-5) Qty: 0 0RF mirtazapine 15 mg Tablet 7.5 mg PO QHS 30 Days Qty: 15 0RF baclofen 10 mg Tablet 10 mg PO QHS 30 Days Qty: 30 0RF Eliquis 5 mg tablet 5 mg PO BID Qty: 180 3RF ramipril [Altace] 2.5 mg capsule 2.5 mg PO DAILY Qty: 90 3RF metoprolol tartrate 25 mg tablet 12.5 mg PO BID Qty: 60 11RF potassium chloride 20 mEq tablet extended release 20 meq PO QDAY Primary Care Provider: Evangelist Henriquez Referrals: Evangelist Henriquez DO [Primary Care Provider] - Print Language: Montenegrin Disposition Disposition: Acute Care Hospital [facility]
[2024-09-05 10:12] LABS: Bacteria 0 SEEN /hpf (None Seen); Mucous, Urine 0 SEEN /hpf (<or=2+); Squamous Epithelial Cells - UA 0 SEEN /hpf (5-10)
[2024-09-05] MEDS: 0.9% Normal Saline (500mL Bag) 500 ML 1000 ML IV (10:15)
[2024-09-05 10:17] LABS: Absolute Lymphocyte Count 3.14 X10^3/uL (0.83-4.51); Absolute Neutrophil Count 5.3 X10^3/uL (2.0-7.7); Basophil# 0.04 X10^3/uL; Basophil% 0.4 % (0-1); Eosinophil# 0.17 X10^3/uL; Eosinophils% 1.8 % (0-5); Hematocrit 30.8 % (37-47); Hemoglobin 9.9 g/dL (12.0-15.0); Lymphocyte # 3.14 X10^3/ul (0.83-4.51); Lymphocyte % 33.7 % (19-41); Mean Corp Hgb Conc 32.1 g/dL (32-36); Mean Corpuscular Hgb 31.1 pg (27.0-32.0); Mean Corpuscular Volume 96.9 fL (81-99); Mean Platelet Vol. 10.2 fl (6.2-12.0); Monocyte# 0.66 X10^3/uL; Monocyte% 7.1 % (0-10); NRBC Flagged by Analyzer 0 % (0-5); Neutrophil # 5.28 X10^3/uL (2.7-7.7); Neutrophil % 56.7 % (47-70); Platelet Count 222 K/mm3 (150-450); RBC Distribution Width CV 13.3 % (11.6-14.6); RBC Distribution Width SD 47.7 fl (35.1-43.9); Red Blood Count 3.18 M/mm3 (4.2-5.4); White Blood Count 9.3 K/mm3 (4.4-11.0)
[2024-09-05 10:30] LABS: Color, Urine Straw (Yellow); Glucose, Dipstick Normal (Normal); Ketone-Dipstick Negative (Negative); Leukocyte Esterase-Dipstick Negative /ul (Negative); Nitrite-Dipstick Negative (Negative); Occult Blood-Urine 250 /ul (Negative); Protein-Dipstick 15 mg/dl (Negative); Urine Bilirubin Dipstick Negative (Negative); Urine Clarity Clear (Clear); Urine Urobilinogen Normal (Normal)
[2024-09-05 10:37] LABS: Red Blood Cells-Urine > 100 SEEN /hpf (0-5); White Blood Cells 0-5 SEEN /hpf (0-5)
[2024-09-05 10:38] LABS: Transitional Epithelial - Ur 0-5 SEEN /hpf (0-5)
[2024-09-05 10:42] LABS: Anion Gap 11 (5-15); BUN 67 mg/dL (4-19); BUN/Creat Ratio 39.4 RATIO (10-20); Calcium,Total 9.9 mg/dL (7.6-11.0); Carbon Dioxide 23.1 mmol/L (21.0-32.0); Chloride 103 mmol/L (98-108); Creatinine, Serum 1.69 mg/dL (0.70-1.20); EST Glomerular Filtration Rate 31 (>60); Estimated Creatinine Clearance 32.79 ml/min (50-250); Glucose 114 mg/dL (70-99); Potassium 4.7 mmol/L (3.3-5.1); Sodium Level 138 mmol/L (133-145)
[2024-09-05 10:47] LABS: Lactic Acid 1.1 mmol/L (0.0-2.0)
[2024-09-05 10:58] LABS: International Normalized Ratio 1.6
[2024-09-05 10:59] LABS: Partial Thromboplast Time 34.2 Seconds (24.1-36.2)
--- NOTE | 2024-09-05 11:47 | CT_ITS ---
EXAM: BRAIN/HEAD WITHOUT CONTRAST CLINICAL HISTORY: 74 y/o F with VISUAL HALLUCINATIONS, confusion. COMPARISON: CT head 07/24/2024. TECHNIQUE: Routine CT imaging of the head without IV contrast. Additional multiplanar reformats were obtained. Dose reduction techniques were used including intermediate exposure control (AEC),iterative reconstruction technique, and/or mA and/or KV dose adjustments based on patient's size. FINDINGS: Mild generalized cerebral volume loss with concordant prominence of the ventricles and subarachnoid spaces. Moderate patchy supratentorial white matter hypodensities. The may-white matter interfaces are otherwise maintained. No acute intracranial hemorrhage or herniation. Prior ocular lens replacements. The visualized paranasal sinuses and mastoids are unremarkable. Calcific plaque of the bilateral carotid siphons and basilar artery. No acute calvarial fracture or scalp hematoma. CT/Brain/Head without Contrast IMPRESSION: 1. No acute intracranial finding. 2. Stable findings of chronic microvascular ischemic changes and age-related ch anges. Reading Location: [id number]
--- NOTE | 2024-09-05 13:21 | PCM.HP.STD ---
HPI - General General Date of Admission: 09/05/24 Date of Service: 09/05/24 Chief Complaint: Visual and auditory hallucinations HPI Narrative RUBEN COSTELLO, is a 74 F with multiple comorbidities including dementia was brought to ED by her daughter for visual and auditory hallucinations for past 3 days. Patient's daughter is the main caregiver the patient lives with her. She also wanders around home without being aware of purpose, forgetful, problem and falling and staying asleep. Her 10 years ago but she misses him and talks with him. Besides that her legs are very swollen below thigh level with severe arthritis of bilateral hip, knees right knee with the worst. She recently saw Dr. Blake and was told that she is not operative candidate for knee replacement and had right knee injection. Denies fever chills, shortness of breath, chest pain pressure tightness or abdominal pain. Has sleep apnea but does not use CPAP as she could not sleep with that [facility] Medical History Hearing loss, right Hearing loss, left Rheumatoid arthritis Chronic pain Kidney disease Congestive heart failure (CHF) Hypertension Dementia Myocardial infarct Left bundle branch block H. pylori infection EBV positive mononucleosis syndrome Altered mental status Congestive heart failure Non-ST elevation MT (NSTEMI) Acute UTI Dyspnea on exertion History of fractured rib Recurrent falls Left renal stone Knee pain Wears glasses Anxiety Post-menopausal Arthritis High cholesterol Gastric reflux Non-smoker Shortness of breath on exertion History of edema History of echocardiogram History of stress test Cardiology follow-up encounter History of atrial fibrillation GERD (gastroesophageal reflux disease) CPAP (continuous positive airway pressure) dependence Sleep apnea Asthma DVT (deep venous thrombosis) Hydronephrosis Paroxysmal atrial fibrillation Morbid obesity Stage 3b chronic kidney disease (CKD) Paroxysmal A-fib Microcalcification of right breast on mammogram Erythematous bladder mucosa Left renal stone Kidney stone Essential hypertension Atherosclerotic heart disease of [place] coronary artery without angina pectoris TATIANA (obstructive sleep apnea) Hemorrhoids Depression Atherosclerosis of coronary 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 Chronic diastolic (congestive) heart failure Nonspecific abnormal unspecified cardiovascular function study Abnormal pulmonary function test Obesity TATIANA (obstructive sleep apnea) COPD (chronic obstructive pulmonary disease) Hyperlipidemia Home Medications ?Medication ?Instructions ?Recorded ?Last Taken ?Type omeprazole 20 mg capsule,delayed 20 mg PO QHS Heartburn 06/22/19 07/23/24 History release cholecalciferol (vitamin D3) 1,250 1 cap PO SA vitamin 07/10/19 07/24/24 History mcg (50,000 unit) capsule escitalopram oxalate 20 mg tablet 20 mg PO DAILY DEPRESSION 05/15/21 07/27/24 History (Lexapro) apixaban 5 mg tablet (Eliquis) 5 mg PO BID Anticoagulant #180 tabs 02/16/24 07/24/24 Rx ramipril 2.5 mg capsule (Altace) 2.5 mg PO DAILY blood pressure #90 07/21/24 07/27/24 Rx caps acetaminophen 500 mg tablet 1,000 mg (2 x 500 mg) PO Q6H PRN 08/17/24 Unknown Rx Pain Score 1-5 #0 tabs atorvastatin 80 mg tablet 80 mg PO QHS 30 days #30 tabs 08/17/24 Unknown Rx clopidogrel 75 mg tablet 75 mg PO DAILY 30 days #30 tabs 08/17/24 Unknown Rx furosemide 40 mg tablet 40 mg PO DAILY 30 days #30 tabs 08/17/24 Unknown Rx mirtazapine 15 mg tablet 7.5 mg (1/2 x 15 mg) PO QHS 30 08/17/24 Unknown Rx days #15 tabs quetiapine 25 mg tablet 12.5 mg (1/2 x 25 mg) PO QPM 30 08/17/24 Unknown Rx days #15 tabs metoprolol tartrate 25 mg tablet 12.5 mg (1/2 x 25 mg) PO BID #60 08/25/24 Unknown Rx tabs potassium chloride 20 mEq 20 meq PO QDAY 08/25/24 Unknown History tablet,extended release tramadol 50 mg tablet 50 mg PO BID PRN PRN pain, severe 09/05/24 09/04/24 History Allergy/AdvReac Type Severity Reaction Status Date / Time acetaminophen (From Vicodin) Allergy Intermediate Hives Verified 08/25/24 11:03 fluoxetine (From Prozac) Allergy Intermediate Nausea Verified 08/25/24 11:03 hydrocodone (From Vicodin) Allergy Intermediate Hives Verified 08/25/24 11:03 promethazine (From Phenergan) Allergy Intermediate Itching Verified 08/25/24 11:03 sulfamethoxazole (From AdvReac Severe renal Verified 08/25/24 11:03 Bactrim) failure trimethoprim (From Bactrim) AdvReac Severe renal Verified 08/25/24 11:03 failure Family History Father Colon cancer Mother Cancer lung Other Gastric reflux Surgical History History of cardiac catheterization History of cystoscopy History of cholecystectomy History of coronary artery stent placement History of lithotripsy Hx of CABG Postsurgical aortocoronary bypass status Postsurgical percutaneous transluminal coronary angioplasty (PTCA) status S/P coronary artery stent placement (07/26/24) Social History household members: none housing: apartment pets and animals: Yes pets and animals: dog(s) Smoking Status: Never smoker alcohol intake: never substance use type: does not use ROS ROS Narrative Constitutional: Reports chronic fatigue and weakness. No fever. HEENT: Reports systems reviewed and no addt'l complaints, except as documented Respiratory/Chest: No acute shortness of breath or respiratory distress or wheezing. CVS: No chest pain pressure or tightness. Gastrointestinal: Denies coffee ground emesis, hematemesis or vomiting Genitourinary: Denies burning urination or new urinary tract symptoms Musculoskeletal: Difficulty ambulation with severe bilateral knees hips arthritis. Ambulates with walker. Neurologic: Denies seizure-like symptoms. No strokelike symptoms skin: No ulcer. No rash Endocrinology: Reports systems reviewed and no addt'l complaints, except as documented Hematologic/Lymphatic: Reports systems reviewed and no addt'l complaints, except as documented Rest 14 ROS are negative except as mentioned in HPI Vital Signs Vital Signs Vital Signs: 09/05/24 09:02 09/05/24 09:05 09/05/24 10:05 Temperature 97.8 F 97.8 F 97.7 F L Temperature Source Oral Oral Oral Pulse Rate 110 H 54 L 53 L Respiratory Rate 18 20 H 16 Blood Pressure 166/80 H 189/67 H 182/102 H Blood Pressure Mean 108 107 128 Pulse Ox 98 96 96 Oxygen Delivery Method Room Air Room Air Room Air 09/05/24 11:00 09/05/24 12:00 09/05/24 13:00 Temperature 98 F 97.6 F L 98.6 F Temperature Source Oral Oral Oral Pulse Rate 51 L 61 61 Respiratory Rate 15 22 H 18 Blood Pressure 191/64 H 144/131 H 144/131 H Blood Pressure Mean 106 135 135 Pulse Ox 98 96 98 Oxygen Delivery Method 09/05/24 13:17 Temperature 98.6 F Temperature Source Pulse Rate 61 Respiratory Rate 18 Blood Pressure 144/131 H Blood Pressure Mean 135 Pulse Ox 98 Oxygen Delivery Method Weight Weight: 232 lb 4.8 oz Body Mass Index (BMI) 42.5 Physical Exam Narrative Seen and examined. General: Alert, disoriented to time and place, cooperative, morbid obesity BMI 41.4 kg/m?, predominant fluid weight HEENT: Atraumatic, PERRLA, EOMI, Normocephalic Oral: No Gingival or Mucosal Lesions/ Ulcerations Neck: Supple, No JVD, Negative Carotid Bruits Chest wall/Lungs: Air entry diminished in bilateral lung bases. No crepitation/rhonchi Cardiovascular: Regular rate, Regular Rhythm, Normal S1, Normal S2, No M/G/R Abdomen: Bowel Sounds Present, Soft, Non Tender, Non-Distended : No dysuria. No renal angle tenderness. No suprapubic tenderness. Extremities: Bilateral thigh-high, 3 edema, Capillary Refill Less than 3 Seconds Skin: No rashes, No breakdown Musculoskeletal: Severe degenerative arthritis of bilateral hips and knees, right knee is the worst. Recent right knee injection. ROM severely limited in both knees. Neurological: Cranial nerves II-XII grossly intact, DTR 2+/4. No acute focal neurological deficit. Muscle strength 4/5 at bilateral knees, right knee is the worst Psych/Mental Status: Flat affect. Hallucinations. Dementia. Results Lab / Micro Data 09/05/24 09:56 09/05/24 09:56 Labs: Laboratory Results - last 24 hr 09/05/24 09:30: Urine Color Straw, Urine Clarity Clear, Urine pH 6.0, Ur Specific [place] 1.010, Urine Protein 15 H, Urine Glucose (UA) Normal, Urine Ketones Negative, Urine Occult Blood 250 H, Urine Nitrite Negative, Urine Bilirubin Negative, Urine Urobilinogen Normal, Ur Leukocyte Esterase Negative, Urine RBC > 100 SEEN, Urine WBC 0-5 SEEN, Ur Squamous Epith Cells 0 SEEN, Ur Transition Epith Cell 0-5 SEEN, Urine Bacteria 0 SEEN, Urine Mucus 0 SEEN 09/05/24 09:56: WBC 9.3, RBC 3.18 L, Hgb 9.9 L, Hct 30.8 L, MCV 96.9, MCH 31.1, MCHC 32.1, RDW Std Deviation 47.7 H, RDW Coeff of Abelardo 13.3, Plt Count 222, MPV 10.2, Immature Gran % (Auto) 0.300, Neut % (Auto) 56.7, Lymph % (Auto) 33.7, [place] % (Auto) 7.1, Eos % (Auto) 1.8, Baso % (Auto) 0.4, Absolute Neuts (auto) 5.3, Absolute Lymphs (auto) 3.14, Nucleated RBC % 0, Sodium 138, Potassium 4.7, Chloride 103, Carbon Dioxide 23.1, Anion Gap 11, BUN 67 H, Creatinine 1.69 H, Estim Creat Clear Calc 32.79 L, Est GFR (MDRD) Non-Af 31 L, BUN/Creatinine Ratio 39.4 H, Glucose 114 H, Calcium 9.9 09/05/24 10:15: PT 19.0 H, INR 1.6, APTT 34.2, Lactic Acid 1.1 Imaging Radiology Impression Brain CT 09/05/24 11:47 IMPRESSION: 1. No acute intracranial finding. 2. Stable findings of chronic microvascular ischemic changes and age-related changes. Reading Location: [facility] Assessment & Plan Assessment/Plan (1) Visual hallucinations: (2) Confusion: PLAN: Plan This 74-year-old female being admitted for visual and auditory hallucinations, worsening dementia and bilateral lower extremity edema 1. Worsening dementia: Patient is being admitted on [facility] floor. She has behavioral component of dementia including auditory, visual hallucinations, talking to her demised along with forgetfulness. The protective services case worker and neonatal social worker assistance. PT and OT ordered. Patient denies burning micturition or acute urinary tract symptoms. UA also looks benign. Does not seem UTI. Urine culture pending. CT head does not show acute intracranial abnormality 2. Recent diagnosis of non-STEMI in July 2024: She had cardiac cath and 3 stents placed with minimal angioplasty. 2D echo shows EF 40%. Continue Plavix, Eliquis, metoprolol and ramipril and atorvastatin 3. Chronic combined HFrEF and HFpEF: Patient had echo in July 2024 reported EF 40%, LA moderately enlarged, no significant valvular pathology. She has bilateral lower extremity edema but lung sounds clear. Lasix 40 mg IV 1 dose and then home Lasix dose increased to 40 mg twice daily. On potassium supplement. Willian wrap bandage. Heart failure core measures including intake and output, fluid restriction less than 1800 mL, daily weight monitoring, kidney and electrolytes monitoring. 4. Chronic debility and generalized weakness, mechanical fall due to bilateral knee arthritis and leg swelling: PT and OT ordered. 5. CKD stage IIIb: Patient baseline creatinine fluctuates between 1.4-1.6. Current BUN/creatinine 67/1.69. Probably has cardiorenal disease from heart failure. Furosemide 40 mg IV dose admission level. Monitor kidney function 6. Paroxysmal A-fib: Continue metoprolol 12.5 mg twice daily and Eliquis. Twelve-lead EKG ordered DVT prophylaxis: Patient on Eliquis 5 mg p.o. twice daily Living will/advanced directive/end of life care: Patient does have living will or advanced directive. Her daughter present in the ED, Mrs. Linn Burnham present in the ER and Mrs. Kiara Jenkins is her other daughter. After discussion of benefits/risks procedures involved with full code, DNR CC arrest and DNR CC, the patient's daughter states she is DNR CC arrest with no intubation Patient doesn't want artificial life support including intubation, tube feed, ventilator and/chest compression, central venous catheter, vasopressor and DC shock if needed Total time spent in [id number] encounter in discussion of advanced directive 17 minutes. Laboratory Results 09/05/24 09:30: Urine Color Straw, Urine Clarity Clear, Urine pH 6.0, Ur Specific [place] 1.010, Urine Protein 15 H, Urine Glucose (UA) Normal, Urine Ketones Negative, Urine Occult Blood 250 H, Urine Nitrite Negative, Urine Bilirubin Negative, Urine Urobilinogen Normal, Ur Leukocyte Esterase Negative, Urine RBC > 100 SEEN, Urine WBC 0-5 SEEN, Ur Squamous Epith Cells 0 SEEN, Ur Transition Epith Cell 0-5 SEEN, Urine Bacteria 0 SEEN, Urine Mucus 0 SEEN 09/05/24 09:56: WBC 9.3, RBC 3.18 L, Hgb 9.9 L, Hct 30.8 L, MCV 96.9, MCH 31.1, MCHC 32.1, RDW Std Deviation 47.7 H, RDW Coeff of Abelardo 13.3, Plt Count 222, MPV 10.2, Immature Gran % (Auto) 0.300, Neut % (Auto) 56.7, Lymph % (Auto) 33.7, [place] % (Auto) 7.1, Eos % (Auto) 1.8, Baso % (Auto) 0.4, Absolute Neuts (auto) 5.3, Absolute Lymphs (auto) 3.14, Nucleated RBC % 0, Sodium 138, Potassium 4.7, Chloride 103, Carbon Dioxide 23.1, Anion Gap 11, BUN 67 H, Creatinine 1.69 H, Estim Creat Clear Calc 32.79 L, Est GFR (MDRD) Non-Af 31 L, BUN/Creatinine Ratio 39.4 H, Glucose 114 H, Calcium 9.9 09/05/24 10:15: PT 19.0 H, INR 1.6, APTT 34.2, Lactic Acid 1.1 Clinical Impression(s) from Imaging Studies Brain CT 09/05/24 11:47 IMPRESSION: 1. No acute intracranial finding. 2. Stable findings of chronic microvascular ischemic changes and age-related changes. Charges/Coding Visit Charges Inpatient E&M: 55438 Init Hosp L3 Procedures Hospitalists Procedures: 66444 Advncd Care Plan 30 Min
--- NOTE | 2024-09-05 14:24 | EKG12_ITS ---
Test Reason : AF Blood Pressure : */* mmHG Vent. Rate : 58 BPM Atrial Rate : 58 BPM P-R Int : 182 ms QRS Dur : 138 ms QT Int : 466 ms P-R-T Axes : 86 -30 23 degrees QTcB Int : 457 ms Sinus bradycardia Left axis deviation Non-specific intra-ventricular conduction block Minimal voltage criteria for LVH, may be normal variant ( Oleg product ) Cannot rule out Septal infarct , age undetermined Abnormal ECG When compared with ECG of 27-Jul-2024 05:36, Significant changes have occurred Confirmed by GILMAR MCDONNELL, MAIN ([id number]), associate entertainment editor DANG GOULD ([id number]) on 09/06/2024 9:18:54 AM Referred By: DERRICK Confirmed By: MAIN SCHAFER MD
[2024-09-05] MEDS: Furosemide 40 MG/4 ML Vial IV (15:58)
[2024-09-05] MEDS: 0.9% Saline Lock 10 ML Syringe IV (15:58)
[2024-09-05] MEDS: Furosemide 40 MG Tablet PO (18:06)
[2024-09-05] MEDS: QUEtiapine 25 MG Tablet 12.5 MG PO (20:23)
[2024-09-05] MEDS: Atorvastatin Calcium 80 MG Tablet PO (20:24)
[2024-09-05] MEDS: APIXABAN 5 MG TABLET PO (20:24)
[2024-09-05] MEDS: Baclofen 10 MG Tablet PO (20:24)
[2024-09-05] MEDS: Metoprolol Tartrate 25 MG Tablet 12.5 MG PO (20:24)
[2024-09-05] MEDS: Pantoprazole Sodium 20 MG Tablet PO (20:25)
[2024-09-05] MEDS: Senna/Docusate Sodium 1 Tablet 2 TABLET PO (20:25)
[2024-09-05] MEDS: Mirtazapine 15 MG Tablet 7.5 MG PO (20:25)
[2024-09-05] MEDS: Acetaminophen 325 MG Tablet 650 MG PO (23:13)
[2024-09-06 03:00] VITALS: BP 156/56; PULSE 66; RESP 18; TEMP 36.6; O2SAT 97
[2024-09-06 06:42] LABS: Absolute Lymphocyte Count 3.47 X10^3/uL (0.83-4.51); Absolute Neutrophil Count 4.7 X10^3/uL (2.0-7.7); Basophil# 0.04 X10^3/uL; Basophil% 0.4 % (0-1); Eosinophil# 0.23 X10^3/uL; Eosinophils% 2.4 % (0-5); Hemoglobin 9.9 g/dL (12.0-15.0); Lymphocyte # 3.47 X10^3/ul (0.83-4.51); Lymphocyte % 36.9 % (19-41); Mean Corpuscular Hgb 31.2 pg (27.0-32.0); Mean Corpuscular Volume 94.6 fL (81-99); Mean Platelet Vol. 10.4 fl (6.2-12.0); Monocyte# 0.92 X10^3/uL; Monocyte% 9.8 % (0-10); NRBC Flagged by Analyzer 0 % (0-5); Neutrophil # 4.71 X10^3/uL (2.7-7.7); Neutrophil % 50.1 % (47-70); Platelet Count 216 K/mm3 (150-450); RBC Distribution Width CV 13.2 % (11.6-14.6); RBC Distribution Width SD 45.9 fl (35.1-43.9); Red Blood Count 3.17 M/mm3 (4.2-5.4); White Blood Count 9.4 K/mm3 (4.4-11.0)
[2024-09-06 07:00] LABS: Anion Gap 13 (5-15); BUN 62 mg/dL (4-19); BUN/Creat Ratio 37.5 RATIO (10-20); Calcium,Total 9.9 mg/dL (7.6-11.0); Carbon Dioxide 22.8 mmol/L (21.0-32.0); Chloride 105 mmol/L (98-108); Creatinine, Serum 1.65 mg/dL (0.70-1.20); EST Glomerular Filtration Rate 32 (>60); Estimated Creatinine Clearance 33.06 ml/min (50-250); Glucose 109 mg/dL (70-99); Potassium 3.8 mmol/L (3.3-5.1); Sodium Level 140 mmol/L (133-145)
[2024-09-06 08:21] VITALS: BP 153/60; PULSE 62; RESP 16; TEMP 36.7; O2SAT 97
[2024-09-06] MEDS: Potassium Chloride Oral Tablet 20 MEQ PO (08:37)
--- NOTE | 2024-09-06 08:52 | PCM.PN.HOSP ---
Reason for Visit Reason for Visit: Diagnoses Disorientation, unspecified (09/05/24) Visual hallucinations (09/05/24) Subjective Subjective Talking about she tried to crawl on a shelf. Then speaking about how earlier I was in a chair and fell out (I had never seen her previously) Objective Data Objective Data Vital Signs: Vital Signs Temp Pulse Resp BP Pulse Ox O2 Del Method 36.7 C 62 16 153/60 H 97 Room Air 09/06/24 08:21 09/06/24 08:21 09/06/24 08:21 09/06/24 08:21 09/06/24 08:21 09/06/24 08:21 Oxygen Delivery Method Room Air Weight: 102.569 kg Body Mass Index (BMI) 41.3 Intake & Output: Intake and Output for Last 24 Hours 09/04/24 09/05/24 09/06/24 23:59 23:59 23:59 Intake Total 1336 / 1916 680 / 680 Output Total 700 / 2050 2100 / 2100 Balance 636 / -134 -1420 / -1420 Lab / Micro Data 09/06/24 06:23 09/06/24 06:23 Labs: Laboratory Results - last 24 hr 09/05/24 09:30: Urine Color Straw, Urine Clarity Clear, Urine pH 6.0, Ur Specific [place] 1.010, Urine Protein 15 H, Urine Glucose (UA) Normal, Urine Ketones Negative, Urine Occult Blood 250 H, Urine Nitrite Negative, Urine Bilirubin Negative, Urine Urobilinogen Normal, Ur Leukocyte Esterase Negative, Urine RBC > 100 SEEN, Urine WBC 0-5 SEEN, Ur Squamous Epith Cells 0 SEEN, Ur Transition Epith Cell 0-5 SEEN, Urine Bacteria 0 SEEN, Urine Mucus 0 SEEN 09/05/24 09:56: WBC 9.3, RBC 3.18 L, Hgb 9.9 L, Hct 30.8 L, MCV 96.9, MCH 31.1, MCHC 32.1, RDW Std Deviation 47.7 H, RDW Coeff of Abelardo 13.3, Plt Count 222, MPV 10.2, Immature Gran % (Auto) 0.300, Neut % (Auto) 56.7, Lymph % (Auto) 33.7, [place] % (Auto) 7.1, Eos % (Auto) 1.8, Baso % (Auto) 0.4, Absolute Neuts (auto) 5.3, Absolute Lymphs (auto) 3.14, Nucleated RBC % 0, Sodium 138, Potassium 4.7, Chloride 103, Carbon Dioxide 23.1, Anion Gap 11, BUN 67 H, Creatinine 1.69 H, Estim Creat Clear Calc 32.79 L, Est GFR (MDRD) Non-Af 31 L, BUN/Creatinine Ratio 39.4 H, Glucose 114 H, Calcium 9.9 09/05/24 10:15: PT 19.0 H, INR 1.6, APTT 34.2, Lactic Acid 1.1 09/06/24 06:23: WBC 9.4, RBC 3.17 L, Hgb 9.9 L, Hct 30.0 L, MCV 94.6, MCH 31.2, MCHC 33.0, RDW Std Deviation 45.9 H, RDW Coeff of Abelardo 13.2, Plt Count 216, MPV 10.4, Immature Gran % (Auto) 0.400, Neut % (Auto) 50.1, Lymph % (Auto) 36.9, [place] % (Auto) 9.8, Eos % (Auto) 2.4, Baso % (Auto) 0.4, Absolute Neuts (auto) 4.7, Absolute Lymphs (auto) 3.47, Nucleated RBC % 0, Sodium 140, Potassium 3.8, Chloride 105, Carbon Dioxide 22.8, Anion Gap 13, BUN 62 H, Creatinine 1.65 H, Estim Creat Clear Calc 33.06 L, Est GFR (MDRD) Non-Af 32 L, BUN/Creatinine Ratio 37.5 H, Glucose 109 H, Calcium 9.9 Radiography Diagnostic Testing: Radiology Impression Brain CT 09/05/24 11:47 IMPRESSION: 1. No acute intracranial finding. 2. Stable findings of chronic microvascular ischemic changes and age-related changes. Reading [facility] Physical Exam Const alert and no apparent distress HEENT head/scalp atraumatic and moist oral mucous membranes Resp normal respiratory effort, no retractions, no use of accessory muscles and clear to auscultation bilaterally Cardio regular rate, regular rhythm, S1 normal heart sound and S2 normal heart sound GI normal to inspection, nondistended, normoactive bowel sounds, soft to palpation, non-tender and non-distended Extremity normal to inspection and full ROM Neuro Sensorium / Orientation: awake, alert, oriented to person, oriented to place and oriented to time Assessment & Plan Assessment/Plan (1) Visual hallucinations: PLAN: Concern for dementia, but yet to be formally tested for it. So, unclear if patient does have underlying dementia/MCI. Agree with holding tramadol. Was already on quetiapine, SSRI prior to arrival Has not been sleeping well, so poor sleep hygeine is likely a factor, but unclear how much DW pt's dtr, who said they have tried to get her into geriatrics, but has had to be cancel. I advised patient to follow up with neurology to see if patient were to have some thing such as Lewy Body Dementia given the fluctuations in cognition and visual hallucinations. Can follow up with [facility]. [facility]. PLAN: Plan CAD: recent PCI. continue clopidogrel and statin. Depression: conitnue SSRI. HTN: metoprolol. afib: metorpolol apixaban. VTE prophylaxis: not indicated as already on apixaban. Disposition: to SNF (TCU) Charges/Coding Visit Charges Inpatient E&M: 34759 Subs Hosp L2
[2024-09-06] MEDS: Furosemide 40 MG Tablet PO ×2 (10:42→17:37)
[2024-09-06] MEDS: Ramipril 2.5 MG Capsule PO (10:42)
[2024-09-06] MEDS: APIXABAN 5 MG TABLET PO ×2 (10:42→21:37)
[2024-09-06] MEDS: Escitalopram Oxalate 20 MG Tablet PO (10:42)
[2024-09-06 10:43] VITALS: PULSE 62
[2024-09-06] MEDS: Senna/Docusate Sodium 1 Tablet 2 TABLET PO ×2 (10:43→21:36)
[2024-09-06] MEDS: Clopidogrel Bisulfate 75 MG Tablet PO (10:43)
[2024-09-06] MEDS: Metoprolol Tartrate 25 MG Tablet 12.5 MG PO (10:43)
--- NOTE | 2024-09-06 12:57 | CHAPLAIN ---
Type of Pastoral Visit _x__ Initial Visit ___ Follow-up Visit ___ On-call Visit ___ General Patient Visit ___ Spiritual Assessment ___ Family Conference ___ Bereavement ___ Rapid Response ___ Code Blue ___ Other (describe below) Pastoral Care Referral From ___ Patient _x__ Family ___ Nurse ___ Physician ___ [employer] ___ Soda Jerker ___ Other (describe below) Sacrament/Intervention _x__ Active listening ___ Anointing ___ Tenriism ___ Bereavement ___ Communion ___ Amanda exploration ___ ___ Life review _x__ Prayer ___ Reconciliation ___ Sacrament of Sick _x__ Supportive presence ___ Wedding ___ Other (describe below) Pastoral Comments patient has some confusion but talks about some things on her mind; some comments are normal but others indicate that she is confused about her surroundings and who is in the room (although no one else is in the room); made conversation with the patient to help her occupy time, give encouragement, and focus; patient agreed that a prayer would be helpful so that was given; made sure the patient had her call button before this vtc technician left the room; pt was leaning back in chair with eyes closed when the visit ended
--- NOTE | 2024-09-06 14:09 | CASEMGMT ---
KATIE HARTLEY Assessment Face to Face with patient for initial transition planning/care coordination assessment. KATIE HARTLEY introduced self and role at [facility], pt voices understanding. Pt is A&Ox3 and is resting comfortably in the chair and is calm. Care providers, pharmacy, and demographics verified. Admitting dx: ADOLFO FRANCO Strata: 3 PCP: Evangelist Henriquez Specialists: [facility], [facility] Preferred Pharmacy: [facility] Insurance: MCR A/B, AETNA Supplement Prescription Benefit: yes LNOK: Kiara Jenkins (Daughter), Linn Burnham (Daughter) Living Arrangements: Pt recently discharged from [facility] TCU. Pt reports that she has been staying between her daughter's homes. Pt states that most recently she was staying at her daughter's (Linn) home that is a 2 story home with a basement with 2 steps to enter ADLs/IADLs: Pt states that her family provides her with assistance Transportation: Family. Denies concerns DME: CPAP @ HS with no additional oxygen bleed through. FWW. Rollator. W/C. Raised Toilet seat. Grab bars. shower chair. Medical alert system. HHC/SNF: Per chart review, pt is active with [facility] (SN, PT, OT, and DON[facility]). Recent admission at [facility] TCU Pt?s goal: TCU Plan: Anticipate SNF at the time of DC. See PT notes. At this time, the pt is requesting to go to the TCU at the time of DC again and states that she had a good experience there. Pt denies any further questions or concerns. Report given to ONUR WILSON CM and SW. Trixie Gurrola RN, CM
[2024-09-06 14:22] VITALS: BP 117/50; PULSE 56; RESP 16; TEMP 36.7; O2SAT 96
--- NOTE | 2024-09-06 14:43 | CASEMGMT ---
Social Work- SW notified by RNCM of pt referral request for TCU. SW followed up with pt and pt dtr to confirm. SW completed referral to TCU admissions. DB remains available to follow. NYDIA Jiang
[2024-09-06 20:11] VITALS: BP 110/42; PULSE 58; RESP 15; TEMP 37.2; O2SAT 94
[2024-09-06] MEDS: QUEtiapine 25 MG Tablet 12.5 MG PO (20:25)
[2024-09-06] MEDS: Baclofen 10 MG Tablet PO (21:36)
[2024-09-06] MEDS: Pantoprazole Sodium 20 MG Tablet PO (21:36)
[2024-09-06] MEDS: Mirtazapine 15 MG Tablet 7.5 MG PO (21:36)
[2024-09-06] MEDS: Atorvastatin Calcium 80 MG Tablet PO (21:37)
[2024-09-07 03:20] VITALS: BP 159/77; PULSE 63; RESP 15; TEMP 36.6; O2SAT 99
[2024-09-07 03:26] VITALS: BP 159/77; PULSE 66
[2024-09-07] MEDS: Metoprolol Tartrate 25 MG Tablet 12.5 MG PO (03:26)
[2024-09-07 08:54] VITALS: BP 136/62; PULSE 57; RESP 16; TEMP 36.7; O2SAT 97
[2024-09-07] MEDS: Potassium Chloride Oral Tablet 20 MEQ PO (09:06)
[2024-09-07] MEDS: Ramipril 2.5 MG Capsule PO (09:06)
[2024-09-07] MEDS: APIXABAN 5 MG TABLET PO (09:07)
[2024-09-07] MEDS: Escitalopram Oxalate 20 MG Tablet PO (09:07)
[2024-09-07] MEDS: Furosemide 40 MG Tablet PO (09:07)
[2024-09-07] MEDS: Senna/Docusate Sodium 1 Tablet 2 TABLET PO (09:08)
[2024-09-07] MEDS: Clopidogrel Bisulfate 75 MG Tablet PO (09:08)
--- NOTE | 2024-09-07 11:33 | TREXTCAR_ITS ---
Diet Diet Order/Speech Therapy: 09/05/24 17:15 Diet: Cardiac - Heart Healthy Fluid restriction:: 1750 mL Routine Orders/Code Status Code Status: DNRCC-A (no intubation) DC O2, CPAP, BIPAP needs Home O2 Discharge instructions: No Therapies Weight Bearing: Full weight bearing Physical Therapy: Eval and Treat Occupational Therapy: Eval and Treat Problem/Diagnosis (1) Visual hallucinations: Status: Acute Code(s): R44.1 - Visual hallucinations Plan: Concern for dementia, but yet to be formally tested for it. So, unclear if patient does have underlying dementia/MCI. Agree with holding tramadol. Was already on quetiapine, SSRI prior to arrival Has not been sleeping well, so poor sleep hygeine is likely a factor, but unclear how much DW pt's dtr, who said they have tried to get her into geriatrics, but has had to be cancel. I advised patient to follow up with neurology to see if patient were to have some thing such as Lewy Body Dementia given the fluctuations in cognition and visual hallucinations. Can follow up with [facility]. [facility]. Plan CAD: recent PCI. continue clopidogrel and statin. Depression: conitnue SSRI. HTN: metoprolol. afib: metorpolol apixaban. VTE prophylaxis: not indicated as already on apixaban. Disposition: to SNF (TCU) Allergies/Procedures Done in Hospital Allergies acetaminophen (From Vicodin) Allergy (Intermediate, Verified 08/25/24 11:03) Hives fluoxetine (From Prozac) Allergy (Intermediate, Verified 08/25/24 11:03) Nausea hydrocodone (From Vicodin) Allergy (Intermediate, Verified 08/25/24 11:03) Hives promethazine (From Phenergan) Allergy (Intermediate, Verified 08/25/24 11:03) Itching sulfamethoxazole (From Bactrim) Adverse Reaction (Severe, Verified 08/25/24 11:03) renal failure hyperkalemia trimethoprim (From Bactrim) Adverse Reaction (Severe, Verified 08/25/24 11:03) renal failure hyperkalemia Procedures: None Type of Care/Length of Stay Estimated LOS: Convalescent Care Less Than 30 days Type of Care Needed: Skilled Rehab Potential: Fair Prognosis: Good Additional Orders/Day of Discharge Day of Discharge: 09/07/24 Dietary and Speech Recommendations Dietitian Recommendations/Changes: Continue Cardiac diet as ordered - consider liberalize/discontinue fluid restriction as medically able. Discharge Plan Admission Admit Date/Time: 09/05/24 13:02 Primary Reason for Your Visit: hallucinations Attending Provider: Amador Navarrete Primary Care Provider: Evangelist Henriquez Consulting Providers: Wade Ernandez Discharge Orders/Prescriptions Prescriptions: Continued omeprazole 20 mg capsule,delayed release(DR/EC) 20 mg PO QHS cholecalciferol (vitamin D3) 1,250 MCG capsule 1 cap PO SA Patient Comments: TAKE 1 CAPSULE BY MOUTH ONCE A WEEK escitalopram oxalate [Lexapro] 20 mg tablet 20 mg PO DAILY tramadol 50 mg tablet 50 mg PO BID PRN PRN (Reason: pain, severe) quetiapine 25 mg Tablet 12.5 mg PO QPM 30 Days Qty: 15 0RF furosemide 40 mg Tablet 40 mg PO DAILY 30 Days Qty: 30 0RF atorvastatin 80 mg Tablet 80 mg PO QHS 30 Days Qty: 30 0RF clopidogrel 75 mg Tablet 75 mg PO DAILY 30 Days Qty: 30 0RF acetaminophen 500 mg Tablet 1,000 mg PO Q6H PRN (Reason: Pain Score 1-5) Qty: 0 0RF mirtazapine 15 mg Tablet 7.5 mg PO QHS 30 Days Qty: 15 0RF Eliquis 5 mg tablet 5 mg PO BID Qty: 180 3RF ramipril [Altace] 2.5 mg capsule 2.5 mg PO DAILY Qty: 90 3RF metoprolol tartrate 25 mg tablet 12.5 mg PO BID Qty: 60 11RF potassium chloride 20 mEq tablet extended release 20 meq PO QDAY Referrals / Follow Up: Evangelist Henriquez DO [Primary Care Provider] - Within 2 Weeks Disposition Disposition (needs filled in before D/C Order can be placed): Care Home Facility
--- NOTE | 2024-09-07 11:37 | PCM.DC.SUM ---
Providers Date of Admission: 09/05/24 Primary Care Physician: Dr. Evangelist Henriquez, DO Reason For Visit: AMS/VISUAL HALLUCINTATION Diagnosis Discharge Diagnosis (1) Visual hallucinations: Status: Acute Code(s): R44.1 - Visual hallucinations Plan: Concern for dementia, but yet to be formally tested for it. So, unclear if patient does have underlying dementia/MCI. Agree with holding tramadol. Was already on quetiapine, SSRI prior to arrival Has not been sleeping well, so poor sleep hygeine is likely a factor, but unclear how much DW pt's dtr, who said they have tried to get her into geriatrics, but has had to be cancel. I advised patient to follow up with neurology to see if patient were to have some thing such as Lewy Body Dementia given the fluctuations in cognition and visual hallucinations. Can follow up with [facility]. [facility]. Plan CAD: recent PCI. continue clopidogrel and statin. Depression: conitnue SSRI. HTN: metoprolol. afib: metorpolol apixaban. VTE prophylaxis: not indicated as already on apixaban. Disposition: to SNF (TCU) Medications at Discharge Home Medications omeprazole 20 mg capsule,delayed release 20 mg PO QHS Heartburn 06/22/19 cholecalciferol (vitamin D3) 1,250 mcg (50,000 unit) capsule 1 cap PO SA vitamin 07/10/19 escitalopram oxalate 20 mg tablet (Lexapro) 20 mg PO DAILY DEPRESSION 05/15/21 apixaban 5 mg tablet (Eliquis) 5 mg PO BID Anticoagulant #180 tabs 02/16/24 ramipril 2.5 mg capsule (Altace) 2.5 mg PO DAILY blood pressure #90 caps 07/21/24 acetaminophen 500 mg tablet 1,000 mg (2 x 500 mg) PO Q6H PRN Pain Score 1-5 #0 tabs 08/17/24 atorvastatin 80 mg tablet 80 mg PO QHS 30 days #30 tabs 08/17/24 clopidogrel 75 mg tablet 75 mg PO DAILY 30 days #30 tabs 08/17/24 furosemide 40 mg tablet 40 mg PO DAILY 30 days #30 tabs 08/17/24 mirtazapine 15 mg tablet 7.5 mg (1/2 x 15 mg) PO QHS 30 days #15 tabs 08/17/24 quetiapine 25 mg tablet 12.5 mg (1/2 x 25 mg) PO QPM 30 days #15 tabs 08/17/24 metoprolol tartrate 25 mg tablet 12.5 mg (1/2 x 25 mg) PO BID #60 tabs 08/25/24 potassium chloride 20 mEq tablet,extended release 20 meq PO QDAY supplement 08/25/24 tramadol 50 mg tablet 50 mg PO BID PRN PRN pain, severe 09/05/24 Hospital Course Operations None Procedures None Summary of Care Provided Minutes Spent on Discharge: 32 Hospital Course: Pt presents with hallucinations and debility. Pt has been A+O x 3, but then will speak about very vivid hallucinations (e.g., being on a shleft where people are trying to get her down). The hallucinations have been chronic, but patient has been having waxing and waning periods of confusion. Pt is to eventually to follow up with geriatrics at [facility] for a formal dementia evaluation. I have also recommended to the patient's daughter to consider following up with a neurologist to see if patient does have dementia, which type. I explained that I would be concerned for Lewy Body Dementia given the hallucinations. Weight / BMI Weight Weight: 102.569 kg Body Mass Index (BMI) 41.3 ABG / Lab / Microbiology Data 09/06/24 06:23 09/06/24 06:23 Microbiology: Microbiology 09/05/24 09:30 Urine Catheter - Catheter Urine Culture - Final Culture exhibits no growth. D/C Instructions Discharge Diet: Low fat / Low cholesterol DC O2, CPAP, BIPAP Needs Home O2 Discharge instructions: No Meaningful Use Info Meaningful Use Meaningful Use Diagnoses (Choose all that apply): None applicable Ischemic Stroke Statin Dosing Therapy Reference: STATIN DOSE THERAPY REFERENCE: * Patients > 75 years receive moderate or high dose statin therapy. * Patients 75 years or YOUNGER should receive HIGH intensity statin dose unless contraindicated. You will be required to document reason for non-treatment if statin daily dose does not meet guidelines. HIGH DOSE STATIN THERAPY DAILY Atorvastatin > than or = to 40 mg Rosuvastatin > than or = to 20 mg Amlodipine + Atorvastatin > than or = to 2.5/40 mg Ezetimibe + Simvastatin 10/80 mg Simvastatin 80mg Discharge Plan Admission Admit Date/Time: 09/05/24 13:02 Primary Reason for Your Visit: hallucinations Attending Provider: Amador Navarrete Primary Care Provider: Evangelist Henriquez Consulting Providers: Wade Ernandez Discharge Orders/Prescriptions Prescriptions: Continued omeprazole 20 mg capsule,delayed release(DR/EC) 20 mg PO QHS cholecalciferol (vitamin D3) 1,250 MCG capsule 1 cap PO SA Patient Comments: TAKE 1 CAPSULE BY MOUTH ONCE A WEEK escitalopram oxalate [Lexapro] 20 mg tablet 20 mg PO DAILY tramadol 50 mg tablet 50 mg PO BID PRN PRN (Reason: pain, severe) quetiapine 25 mg Tablet 12.5 mg PO QPM 30 Days Qty: 15 0RF furosemide 40 mg Tablet 40 mg PO DAILY 30 Days Qty: 30 0RF atorvastatin 80 mg Tablet 80 mg PO QHS 30 Days Qty: 30 0RF clopidogrel 75 mg Tablet 75 mg PO DAILY 30 Days Qty: 30 0RF acetaminophen 500 mg Tablet 1,000 mg PO Q6H PRN (Reason: Pain Score 1-5) Qty: 0 0RF mirtazapine 15 mg Tablet 7.5 mg PO QHS 30 Days Qty: 15 0RF Eliquis 5 mg tablet 5 mg PO BID Qty: 180 3RF ramipril [Altace] 2.5 mg capsule 2.5 mg PO DAILY Qty: 90 3RF metoprolol tartrate 25 mg tablet 12.5 mg PO BID Qty: 60 11RF potassium chloride 20 mEq tablet extended release 20 meq PO QDAY Referrals / Follow Up: Evangelist Henriquez DO [Primary Care Provider] - Within 2 Weeks Disposition Disposition (needs filled in before D/C Order can be placed): Residential Facility Charges/Coding Visit Charges Inpatient E&M: 20001 Disch Hosp >30min
--- NOTE | 2024-09-07 12:06 | CASEMGMT ---
Social Work- Pt is medically ready for discharge per physician. DB faxed documentation to TCU admissions. DB notified bedside nurse and pt dtr. Pt agreeable to discharge to TCU; skilled level of care. NYDIA Jiang
== END 2024-09-07 14:16 | disposition skilled nursing facility (03) | DRG 884 ==
LOC: ED 13:25 → MS3 13:35
PROVIDERS: Admitting Provider Internal Medicine; Emergency Provider Emergency Medicine; PCP Student in an Organized Health Care Education/Training Program
DX: F03.92 Unspecified dementia, unspecified severity, with psychotic disturbance (principal); I13.0 Hypertensive heart and chronic kidney disease with heart failure and stage 1 through stage 4 chronic kidney disease, or unspecified chronic kidney disease; I50.22 Chronic systolic (congestive) heart failure; Z68.41 Body mass index [BMI] 40.0-44.9, adult; E66.01 Morbid (severe) obesity due to excess calories; Z66 Do not resuscitate; G31.83 Neurocognitive disorder with Lewy bodies; I48.0 Paroxysmal atrial fibrillation; E78.00 Pure hypercholesterolemia, unspecified; N18.32 Chronic kidney disease, stage 3b; J44.9 Chronic obstructive pulmonary disease, unspecified; F32.A Depression, unspecified; F02.83 Dementia in other diseases classified elsewhere, unspecified severity, with mood disturbance; R44.1 Visual hallucinations; I25.2 Old myocardial infarction; I25.10 Atherosclerotic heart disease of native coronary artery without angina pectoris; R53.81 Other malaise; Z95.5 Presence of coronary angioplasty implant and graft; Z79.01 Long term (current) use of anticoagulants; Z79.02 Long term (current) use of antithrombotics/antiplatelets; Z79.899 Other long term (current) drug therapy; Z72.821 Inadequate sleep hygiene; Z88.8 Allergy status to other drugs, medicaments and biological substances; Z88.5 Allergy status to narcotic agent; Z88.2 Allergy status to sulfonamides
CPT/HCPCS: 36415; 70450; 80048; 81001; 83605; 85025; 85610; 85730; 87040; 87086; 93005; 94668; 97162; 97166; 99285; A4216; J1940

== ENCOUNTER 2024-09-07 14:25 | Inpatient (IN) | payer MEDICARE, OTHER, SELFPAY ==
[2024-09-07 14:57] VITALS: BP 129/66; PULSE 70; RESP 16; TEMP 36.5; O2SAT 97; BMI 39.6
[2024-09-07 15:01] VITALS: BMI 39.6
[2024-09-07 15:19] VITALS: BMI 39.4
--- NOTE | 2024-09-07 19:36 | HP.PCM_ITS ---
HPI - General General Date of Admission: 09/07/24 Date of Service: 09/07/24 Chief Complaint: Here for rehabilitation. HPI Narrative RUBEN COSTELLO, is a 74 Female who presents with followin09/05/2024 [facility] ED complaint. Possible UTI for 3 days, visual hallucinations with UTI. Visual hallucinations for 2 days, getting worse. Frequency of urination, no dysuria, no hematuria. Labs stable, Urinalysis negative for UTI, CT head negative. IV fluids given. 09/05/2024 Admit [facility]. PT/OT for discharge planning. Urine culture pending. Lasix 40mg iv x 1 dose, then Lasix 40mg bid for HFrEF/bilateral lower extremity edema. 09/06/2024 Visual hallucinations continue. Hold Tramadol, continue Seroquel, continue SSRI. Neurology follow up recommended for evaluation of Lewy Body Dementia. 09/07/2024 Urine culture negative, blood cultures negative. 09/07/2024 Admit to TCU with debility, here for rehabilitation, strengthening, prior to discharge home with daughter. [facility] Medical History (Updated 09/07/24 @ 19:[address] Kirk Daniel MD) Hyperlipidemia Hearing loss, right Hearing loss, left Rheumatoid arthritis Chronic pain Kidney disease Congestive heart failure (CHF) Hypertension Dementia Myocardial infarct Left bundle branch block H. pylori infection EBV positive mononucleosis syndrome Altered mental status Congestive heart failure Non-ST elevation HI (NSTEMI) Acute UTI Dyspnea on exertion History of fractured rib Recurrent falls Left renal stone Knee pain Wears glasses Anxiety Post-menopausal Arthritis High cholesterol Gastric reflux Non-smoker Shortness of breath on exertion History of edema History of echocardiogram History of stress test Cardiology follow-up encounter History of atrial fibrillation GERD (gastroesophageal reflux disease) CPAP (continuous positive airway pressure) dependence Sleep apnea Asthma DVT (deep venous thrombosis) Hydronephrosis Paroxysmal atrial fibrillation Morbid obesity Stage 3b chronic kidney disease (CKD) Paroxysmal A-fib Microcalcification of right breast on mammogram Erythematous bladder mucosa Left renal stone Kidney stone Essential hypertension Atherosclerotic heart disease of [place] coronary artery without angina pectoris [place] (obstructive sleep apnea) Hemorrhoids Depression Atherosclerosis of coronary 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 Chronic diastolic (congestive) heart failure Nonspecific abnormal unspecified cardiovascular function study Abnormal pulmonary function test Obesity [place] (obstructive sleep apnea) COPD (chronic obstructive pulmonary disease) Home Medications ?Medication ?Instructions ?Recorded ?Last Taken ?Type omeprazole 20 mg capsule,delayed 20 mg PO QHS Heartbur n 06/22/19 09/04/24 21:00 History release cholecalciferol (vitamin D3) 1,250 1 cap PO SA vitamin 07/10/19 09/05/24 02:30 History mcg (50,000 unit) capsule escitalopram oxalate 20 mg tablet 20 mg PO DAILY DEPRE SSION 05/15/21 07/27/24 History (Lexapro) apixaban 5 mg tablet (Eliquis) 5 mg PO BID Anticoagula nt #180 tabs 02/16/24 09/04/24 21:00 Rx ramipril 2.5 mg capsule (Altace) 2.5 mg PO DAILY blood pressure #90 07/21/24 09/05/24 02:30 Rx caps acetaminophen 500 mg tablet 1,000 mg (2 x 500 mg) PO Q 6H PRN 08/17/24 09/05/24 02:30 Rx Pain Score 1-5 #0 tabs atorvastatin 80 mg tablet 80 mg PO QHS cholesterol 30 days 08/17/24 09/04/24 21:00 Rx #30 tabs clopidogrel 75 mg tablet 75 mg PO DAILY anti-platelet 30 08/17/24 09/05/24 02:30 Rx days #30 tabs furosemide 40 mg tablet 40 mg PO DAILY fluid pill 30 days 08/17/24 09/05/24 02:30 Rx #30 tabs mirtazapine 15 mg tablet 7.5 mg (1/2 x 15 mg) PO QHS mood 08/17/24 09/04/24 21:00 Rx 30 days #15 tabs quetiapine 25 mg tablet 12.5 mg (1/2 x 25 mg) PO QPM 08/17/24 09/04/24 21:00 Rx hallucinations 30 days #15 tabs metoprolol tartrate 25 mg tablet 12.5 mg (1/2 x 25 mg) PO BID 08/25/24 09/05/24 02:30 Rx BP/pulse #60 tabs potassium chloride 20 mEq 20 meq PO QDAY supplement 09/05/24 02:30 History tablet,extended release tramadol 50 mg tablet 50 mg PO BID PRN PRN pain, s evere 09/05/24 09/04/24 21:00 History Allergy/AdvReac Type Severity Reaction Status Date / Time acetaminophen (From Vicodin) Allergy Intermediate Hives Verified 08/25/24 11:03 fluoxetine (From Prozac) Allergy Intermediate Nausea Verified 08/25/24 11:03 hydrocodone (From Vicodin) Allergy Intermediate Hives Verified 08/25/24 11:03 promethazine (From Phenergan) Allergy Intermediate Itching Verified 08/25/24 11:03 sulfamethoxazole (From AdvReac Severe renal Verified 08/25/24 11:03 Bactrim) failure trimethoprim (From Bactrim) AdvReac Severe renal Verified 08/25/24 11:03 failure Family History Father Colon cancer Mother Cancer lung Other Gastric reflux Surgical History History of cardiac catheterization History of cystoscopy History of cholecystectomy History of coronary artery stent placement History of lithotripsy Hx of CABG Postsurgical aortocoronary bypass status Postsurgical percutaneous transluminal coronary angioplasty (PTCA) status S/P coronary artery stent placement (07/26/24) Social History (Updated 09/07/24 @ 19:[address] Kirk Daniel MD) household members: children and other details: Living with daughter. housing: house pets and animals: Yes pets and animals: dog(s) Smoking Status: Never smoker alcohol intake: never substance use type: does not use ROS Constitutional Constitutional: Denies chills, fever(s) or weight gain ENT HEENT: Denies headache(s), nasal congestion or nasal discharge Cardiovascular Cardiovascular: Denies chest pain or palpitations Respiratory/Chest Respiratory/Chest: Denies cough, excessive phlegm production or shortness of breath with exertion Gastrointestinal Gastrointestinal: Denies abdominal pain, nausea or vomiting Genitourinary Genitourinary: Denies dysuria Musculoskeletal Musculoskeletal: Denies joint pain or joint swelling Integumentary Integumentary: Denies rash or wounds Neurologic Neurologic: Denies focal weakness, numbness or tingling Psychiatric Psychiatric: Denies anxiety, auditory hallucinations, depression, homicidal ideation or suicidal ideation Vital Signs Vital Signs Vital Signs: 09/07/24 14:57 09/07/24 15:46 Temperature 97.7 F L Temperature Source Oral Pulse Rate 70 Pulse Rhythm Regular Pulse Strength Normal (2+) Respiratory Rate 16 Respiratory Effort Normal Non-Labored Respiratory Depth Normal Respiratory Pattern Normal Blood Pressure 129/66 H Blood Pressure Mean 87 Blood Pressure Source Monitor Blood Pressure Position Sitting Blood Pressure Location Left Arm Pulse Ox 97 Oxygen Delivery Method Room Air Room Air Weight Weight: 97.658 kg Body Mass Index (BMI) 39.4 Physical Exam Const alert General Appearance: cooperative HEENT normocephalic Eyes PERRL and EOMs intact bilaterally Neck supple, no JVD and no carotid bruits Resp normal respiratory effort, normal air movement and clear to auscultation bilaterally Cardio regular rate and regular rhythm GI normal to inspection, nondistended, normoactive bowel sounds, non-tender and non-distended Extremity normal capillary refill General Extremity: Negative for edema Skin no rashes or lesions noted General Skin Exam: no breakdown Psych affect normal Appearance: appropriate Assessment & Plan Assessment/Plan (1) Debility: (2) Acute delirium: (3) Visual hallucinations: (4) Coronary artery disease: (5) Chronic HFrEF (heart failure with reduced ejection fraction): (6) Atrial fibrillation: (7) Hyperlipidemia: QUALIFIERS: Hyperlipidemia type: unspecified Qualified Code(s): E78.5 - Hyperlipidemia, unspecified (8) Depression: (9) GERD (gastroesophageal reflux disease): (10) Insomnia: (11) Lewy body dementia: PLAN: Plan 74 year old female with below past medical history hospitalized for visual hallucinations, encephalopathy related to Lewy Body Dementia, admitted to TCU with debility, here for rehabilitation, strengthening, prior to discharge home with daughter. * Debility - PT/OT. * Cognition - ST. * Pain - Tylenol 1000mg q6 prn, Tramadol 50mg bid prn. * Bowel - Miralax 17gm daily, senna/colace 1 tablet bid, Magnesium citrate 300mL po x 1 prn. * Adult immunization - Administer pneumonia vaccine, covid vaccine, flu vaccine as appropriate. * DVT prophylaxis - Eliquis. * Atrial fibrillation - Metoprolol tartrate 12.5mg bid, Eliquis 5mg bid. * Hyperlipidemia - Atorvastatin 80mg qhs. * Dry Eyes - Artificial tears 2gtt ou q1 prn. * Coronary artery disease s/p stents - Metoprolol 12.5mg bid, Ramipril 2.5mg daily, Plavix 75mg daily, Eliquis 5mg bid. * Vitamin D deficiency - D 1.25mg qweek,. * Depression - Lexapro 20mg daily, stable chronic prison use, GDR not recommended. * Chronic HFrEF - Metoprolol 12.5mg bid, Ramipril 2.5mg daily, Furosemide 40mg daily. * Insomnia - Mirtazapine 7.5mg qhs, stable chronic joint terminal attack controller use, GDR not recommended. * Tinea Corporis - Nystatin powder topical bid. * GERD - Pantoprazole 20mg qhs. * Hypokalemia - KCL 20meq daily. * Lewy Body dementia with visual hallucinations - Seroquel 12.5mg qhs, stable chronic prison use, GDR not recommended.
[2024-09-07] MEDS: traMADol 50 MG Tablet PO (20:28)
[2024-09-07 20:30] VITALS: PULSE 41
[2024-09-07] MEDS: Mirtazapine 15 MG Tablet 7.5 MG PO (20:30)
[2024-09-07] MEDS: QUEtiapine 25 MG Tablet 12.5 MG PO (20:31)
[2024-09-07] MEDS: Atorvastatin Calcium 80 MG Tablet PO (20:32)
[2024-09-07] MEDS: Pantoprazole Sodium 20 MG Tablet PO (20:32)
[2024-09-07] MEDS: APIXABAN 5 MG TABLET PO (20:32)
[2024-09-07] MEDS: Senna/Docusate Sodium 1 Tablet PO (20:33)
[2024-09-07] MEDS: Nystatin Powder 15gm Bottle 1 APPLIC TOPICAL (20:39)
[2024-09-08 05:55] LABS: Absolute Lymphocyte Count 3.65 X10^3/uL (0.83-4.51); Basophil# 0.04 X10^3/uL; Basophil% 0.4 % (0-1); Eosinophil# 0.22 X10^3/uL; Eosinophils% 2.2 % (0-5); Hematocrit 28.3 % (37-47); Hemoglobin 9.3 g/dL (12.0-15.0); Lymphocyte # 3.65 X10^3/ul (0.83-4.51); Mean Corp Hgb Conc 32.9 g/dL (32-36); Mean Corpuscular Hgb 31.6 pg (27.0-32.0); Mean Corpuscular Volume 96.3 fL (81-99); Mean Platelet Vol. 10.5 fl (6.2-12.0); Monocyte# 0.94 X10^3/uL; Monocyte% 9.5 % (0-10); NRBC Flagged by Analyzer 0 % (0-5); Neutrophil # 4.99 X10^3/uL (2.7-7.7); Neutrophil % 50.7 % (47-70); Platelet Count 193 K/mm3 (150-450); RBC Distribution Width CV 13.3 % (11.6-14.6); RBC Distribution Width SD 47.5 fl (35.1-43.9); Red Blood Count 2.94 M/mm3 (4.2-5.4); White Blood Count 9.9 K/mm3 (4.4-11.0)
[2024-09-08 06:56] LABS: Anion Gap 12 (5-15); BUN 63 mg/dL (4-19); Calcium,Total 9.2 mg/dL (7.6-11.0); Carbon Dioxide 23.3 mmol/L (21.0-32.0); Chloride 103 mmol/L (98-108); Creatinine, Serum 1.79 mg/dL (0.70-1.20); EST Glomerular Filtration Rate 29 (>60); Estimated Creatinine Clearance 29.63 ml/min (50-250); Glucose 108 mg/dL (70-99); Potassium 3.6 mmol/L (3.3-5.1); Sodium Level 138 mmol/L (133-145)
[2024-09-08 09:23] VITALS: BP 136/51; PULSE 59
[2024-09-08] MEDS: Escitalopram Oxalate 20 MG Tablet PO (09:23)
[2024-09-08] MEDS: Senna/Docusate Sodium 1 Tablet PO ×2 (09:23→21:19)
[2024-09-08] MEDS: Clopidogrel Bisulfate 75 MG Tablet PO (09:23)
[2024-09-08] MEDS: Furosemide 40 MG Tablet PO (09:23)
[2024-09-08] MEDS: APIXABAN 5 MG TABLET PO ×2 (09:23→21:14)
[2024-09-08] MEDS: Metoprolol Tartrate 25 MG Tablet 12.5 MG PO (09:23)
[2024-09-08] MEDS: Ramipril 2.5 MG Capsule PO (09:24)
[2024-09-08] MEDS: Potassium Chloride Oral Tablet 20 MEQ PO (09:25)
[2024-09-08] MEDS: Nystatin Powder 15gm Bottle 1 APPLIC TOPICAL ×2 (09:25→21:19)
[2024-09-08 10:00] VITALS: BP 136/51; PULSE 59; RESP 18; TEMP 36.6; O2SAT 99
[2024-09-08] MEDS: Tuberculin,Purif.prot.deriv. 50 TU/ML Vial 0.1 ML ID (11:37)
--- NOTE | 2024-09-08 14:22 | PHA.CONS_ITS ---
Documented by User: Gris Kee 09/08/24 14:59 TCU RX Drug Regimen Review Subjective/Objective Subjective/Objective Subjective: TCU Admission. 74 YOF presented to the ER with complaint. Hospitalized for visual hallucinations, encephalopathy related to Lewy Body Giovanni ntia. Admitted to TCU with debility for strengthening and rehabilitation. Objective: Allergies acetaminophen (From Vicodin) Allergy (Intermediate, Verified 08/25/24 11:03) Hives fluoxetine (From Prozac) Allergy (Intermediate, Verified 08/25/24 11:03) Nausea hydrocodone (From Vicodin) Allergy (Intermediate, Verified 08/25/24 11:03) Hives promethazine (From Phenergan) Allergy (Intermediate, Verified 08/25/24 11:03) Itching sulfamethoxazole (From Bactrim) Adverse Reaction (Severe, Verified 08/25/24 11:03) renal failure hyperkalemia trimethoprim (From Bactrim) Adverse Reaction (Severe, Verified 08/25/24 11:03) renal failure hyperkalemia Current Medications Generic Name Dose Route Start Last Admin Trade Name Freq PRN Reason Stop Dose Admin Acetaminophen 1,000 mg 09/07/24 15:02 Acetaminophen 500 Mg Tablet PO Q6H PRN Pain Score 1-5 Apixaban 5 mg 09/07/24 22:00 09/08/24 09:23 Apixaban 5 Mg Tablet PO 5 mg BID TREMAYNE Administration Artificial Tears 2 drp 09/07/24 15:26 Carboxymethylcellulose Sodium 15 Ml Ophth Drops EACH EYE Q1H PRN DRY EYES Atorvastatin Calcium 80 mg 09/07/24 22:00 09/07/24 20:32 Atorvastatin Calcium 80 Mg Tablet PO 80 mg QHS TREMAYNE Administration Clopidogrel Bisulfate 75 mg 09/08/24 10:00 09/08/24 09:23 Clopidogrel Bisulfate 75 Mg Tablet PO 75 mg DAILY TREMAYNE Administration Ergocalciferol 1.25 mg 09/11/24 10:00 Ergocalciferol 1.25 Mg (50, 000 Unit) Capsule PO SA TREMAYNE Escitalopram Oxalate 20 mg 09/08/24 10:00 09/08/24 09:23 Escitalopram Oxalate 20 Mg Tablet PO 20 mg DAILY TREMAYNE Administration Furosemide 40 mg 09/08/24 10:00 09/08/24 09:23 Furosemide 40 Mg Tablet PO 40 mg DAILY TREMAYNE Administration Protocol Magnesium Citrate 300 ml 09/07/24 15:11 Magnesium Citrate 300 Ml PO X1 PRN Constipation Metoprolol Tartrate 12.5 mg 09/07/24 22:00 09/08/24 09:23 Metoprolol Tartrate 25 Mg Tablet PO 12.5 mg BID TREMAYNE Administration Protocol Mirtazapine 7.5 mg 09/07/24 22:00 09/07/24 20:30 Mirtazapine 15 Mg Tablet PO 7.5 mg QHS TREMAYNE Administration Nystatin 1 applic 09/07/24 22:00 09/08/24 09:25 Nystatin Powder 15gm Bottle TOPICAL 1 applic BID [facility] Administration Protocol Pantoprazole Sodium 20 mg 09/07/24 22:00 09/07/24 20:32 Pantoprazole Sodium 20 Mg Tablet PO 20 mg QHS TREMAYNE Administration Polyethylene Glycol 17 gm 09/08/24 10:00 09/08/24 09:24 Polyethylene Glycol 3350 17 Gm Packet PO Not Given DAILY [facility] Potassium Chloride 20 meq 09/08/24 08:00 09/08/24 09:25 Potassium Chloride Oral Tablet 20 Meq PO 20 meq DAILYCM TREMAYNE Administration Quetiapine Fumarate 12.5 mg 09/07/24 22:00 09/07/24 20:31 Quetiapine 25 Mg Tablet PO 12.5 mg QHS [facility] Administration Protocol Ramipril 2.5 mg 09/08/24 10:00 09/08/24 09:24 Ramipril 2.5 Mg Capsule PO 2.5 mg DAILY TREMAYNE Administration Protocol Senna/Docusate Sodium 1 tablet 09/07/24 22:00 09/08/24 09:23 Senna/Docusate Sodium 1 Tablet PO 1 tablet BID TREMAYNE Administration Sodium Chloride 10 - 40 ml 09/07/24 15:06 0.9% Saline Lock 10 Ml Syringe IV UD PRN SALINE FLUSH Tramadol HCl 50 mg 09/07/24 15:07 09/07/24 20:28 Tramadol 50 Mg Tablet PO 50 mg BID PRN PRN Administration PAIN 6-10 Tuberculin PPD 0.1 ml 09/15/24 10:00 Tuberculin,Purif.Prot.Deriv. 50 Tu/Ml Vial ID 09/15/24 10:01 X1 ONE Problem List Lewy body dementia (Acute) Hyperlipidemia (Acute) Chronic HFrEF (heart failure with reduced ejection fraction) (Chronic) Acute delirium (Acute) Visual hallucinations (Acute) Coronary artery disease (Acute) Atrial fibrillation (Acute) Debility (Acute) Depression (Acute) GERD (gastroesophageal reflux disease) (Acute) Vital Signs Temp Pulse Resp BP Pulse Ox O2 Del Method 97.7 F L 59 L 16 136/51 H 97 Room Air 09/07/24 14:57 09/08/24 09:23 09/07/24 14:57 09/08/24 09:23 09/07/24 14:57 09/07/24 15:46 Oxygen Delivery Method Room Air Weight: 97.658 kg Body Mass Index (BMI) 39.4 Sodium 138 mmol/L (133-145) 09/08/24 05:25 Potassium 3.6 mmol/L (3.3-5.1) 09/08/24 05:25 Chloride 103 mmol/L (98-108) 09/08/24 05:25 Carbon Dioxide 23.3 mmol/L (21.0-32.0) 09/08/24 05:25 Anion Gap 12 (5-15) 09/08/24 05:25 BUN 63 mg/dL (4-19) H 09/08/24 05:25 Creatinine 1.79 mg/dL (0.70-1.20) H 09/08/24 05:25 Est GFR (MDRD) Non-Af 29 (>60) L 09/08/24 05:25 BUN/Creatinine Ratio 35.0 RATIO (10-20) H 09/08/24 05:25 Glucose 108 mg/dL (70-99) H 09/08/24 05:25 Assessment/Plan: 1. Pain: acetaminophen 1000mg PO Q6H PRN pain 1-5 and tramadol 50mg PO BID PRN pain 6-10. Resident has had 1 dose of tramadol for a pain score of 10 in the knee. Resident has had no doses of acetaminophen. Please continue to monitor for increased pain, PRN usage, constipation, falls (BEERs), renal function and respiratory depression. 2. Bowel: Miralax 17gm PO daily, senna/docusate 2T PO BID and magnesium citrate 300mL PO daily PRN constipation. No PRN doses given. Please continue to monitor for constipation and PRN usage. Last documented bowel movement was 09/07. 3. Atrial fibrillation/CAD s/p stents/HFrEF: metoprolol tartrate 12.5mg PO BID, apixaban 5mg PO BID, ramipril 2.5mg PO daily, clopidogrel 75mg PO daily and furosemide 40mg PO daily. Please continue to monitor BP (last 136/51), HR (last 59), S/S of bleeding, hemoglobin (last 9.3g/dL), renal function (SCr 1.79mg/dL), swelling, potassium (last 3.6mmol/L) and cough. 4. Hyperlipidemia: atorvastatin 80mg PO QHS. Please continue to monitor lipid panel (last 07/30/24), LFTs (last 07/27/24) and muscle pain. 5. GERD: pantoprazole 20mg PO QHS. Please continue to monitor for S/S of GERD and diarrhea. 6. Hypokalemia: potassium chloride 20mEq PO daily. Please continue to monitor potassium (last 3.6mmol/L). 7. Dry Eyes: Artificial tears 2gtt OU Q1H PRN dry eyes. Resident had not used any doses. Please continue to monitor for PRN usage. 8. Vitamin D deficiency: ergocalciferol 1.25mg PO weekly. Please continue to monitor vitamin D levels (last 07/30/24). 9. Tinea Corporis: Nystatin powder topical bid. Assessment/Plan for indications treated with psychotropic medications: 1. Depression: escitalopram 20mg PO daily. Please see physician note regarding GDR. Please continue to monitor for suicidal ideation (black box warning), fall s/fractures (BEERs), sodium (last 138mmol/L). 2. Visual hallucinations/Lewy Body dementia: quetiapine 12.5mg PO QPM. Please see physician note regarding GDR. Please continue to monitor for dementia/ delirium (BEERs), falls/fractures (BEERs), weight gain, sodium (BEERs). 3. Insomnia: mirtazapine 7.5mg PO QHS. Please see physician note regarding GDR. Please continue to monitor for improvement in insomnia and excessive daytime drowsiness, sodium (BEERs) and suicidal ideation (BEERs). Medical chart and medication regimen reviewed. The following medication irregularities or issues were identified: None Date Date of Note: 09/08/24 Documented by User: Dr. Kirk Daniel MD 09/08/24 17:30 TCU RX Drug Regimen Review Provider Comments Provider responsibility Provider Comments to Recommendations by Pharmacy Agree
--- NOTE | 2024-09-08 14:58 | CASEMGMT ---
Social Work- SW met with pt to complete initial assessment. Pt known to SW from previous stay. SW re-introduced self and role; pt agreeable to meet. SW verified contacts and that information from previous assessment had not changed. Pt reports that prior discharge to dtr home didn't go well. Pt reports that she was paranoid of dtr and took medication that pt reports she was not supposed to take. Pt shared that pt dtrs are collaborating on discharge planning; pt is open to discussions. SW remains available to follow for discharge planning needs. Pt scored 13/15 on BIMS and 0/2 on PHQ9. NYDIA Jiang
--- NOTE | 2024-09-08 15:14 | CASEMGMT ---
Social Work SW exchanged several conversations with pt's dtr, Kiara. Dtr informed this worker that pt is third on the waitlist at [facility]. SW called to confirm there are no earlier availability. SW discussed other AL options with dtr, as the goal would be to DC pt to an AL from U to eliminate multiple moves. Also noting will can private pay initially, but after several months, pt will need to apply for AL Waiver. SW provided options of those ALs. Reminded dtr there will be a family care plan meeting scheduled next week, and the team can better assess pt over the next week, and the dtr can discuss with pt and her sister about other AL options, in the meantime. SW will assist with AL referrals. Dtr inquired about memory care and hospitalist recommending pt f/u with a neurologist for possible dx of Lewy Body Dementia. SW agreed, as team provided that recommendation during previous stay with the same suspicion of dx. Dtr stated she had made an appt with a specialist neurologist for October 22 at . SW provided other options of neurologists for dtr to contact to potentially be seen sooner or in addition to. Dtr appreciative. Dtr inquired about memory care AL. SW explained memory care requires a dx of Alzheimer's or Dementia, and it focuses on behaviors and elopement risk, but also can provide increased assistance. Explained the determination will come from the AL after an assessment has been completed. Dtr expressed understanding. SW offered to speak with sister, Linn, as she was the primary caregiver. Dtr agreed. SW will continue to follow for DC planning assistance and support. Leonie Giordano LASTING ROOM SUPERVISOR SOLUTION MAKER
[2024-09-08] MEDS: traMADol 50 MG Tablet PO (21:12)
[2024-09-08] MEDS: Atorvastatin Calcium 80 MG Tablet PO (21:12)
[2024-09-08 21:14] VITALS: PULSE 54
[2024-09-08] MEDS: Pantoprazole Sodium 20 MG Tablet PO (21:14)
[2024-09-08] MEDS: QUEtiapine 25 MG Tablet 12.5 MG PO (21:15)
[2024-09-08] MEDS: Mirtazapine 15 MG Tablet 7.5 MG PO (21:18)
[2024-09-09] MEDS: traMADol 50 MG Tablet PO ×2 (05:38→20:52)
[2024-09-09] MEDS: Acetaminophen 500 MG Tablet 1000 MG PO (05:38)
[2024-09-09 06:44] LABS: Absolute Lymphocyte Count 3.43 X10^3/uL (0.83-4.51); Basophil# 0.03 X10^3/uL; Basophil% 0.3 % (0-1); Eosinophil# 0.25 X10^3/uL; Eosinophils% 2.6 % (0-5); Hematocrit 28.1 % (37-47); Hemoglobin 9.1 g/dL (12.0-15.0); Lymphocyte # 3.43 X10^3/ul (0.83-4.51); Lymphocyte % 35.6 % (19-41); Mean Corp Hgb Conc 32.4 g/dL (32-36); Mean Corpuscular Hgb 31.3 pg (27.0-32.0); Mean Corpuscular Volume 96.6 fL (81-99); Mean Platelet Vol. 10.7 fl (6.2-12.0); Monocyte# 0.95 X10^3/uL; Monocyte% 9.9 % (0-10); NRBC Flagged by Analyzer 0 % (0-5); Neutrophil # 4.95 X10^3/uL (2.7-7.7); Neutrophil % 51.4 % (47-70); Platelet Count 188 K/mm3 (150-450); RBC Distribution Width CV 13.2 % (11.6-14.6); RBC Distribution Width SD 46.7 fl (35.1-43.9); Red Blood Count 2.91 M/mm3 (4.2-5.4); White Blood Count 9.6 K/mm3 (4.4-11.0)
[2024-09-09 07:02] LABS: Anion Gap 11 (5-15); BUN 65 mg/dL (4-19); BUN/Creat Ratio 39.5 RATIO (10-20); Calcium,Total 9.1 mg/dL (7.6-11.0); Carbon Dioxide 23.3 mmol/L (21.0-32.0); Chloride 103 mmol/L (98-108); Creatinine, Serum 1.65 mg/dL (0.70-1.20); EST Glomerular Filtration Rate 32 (>60); Estimated Creatinine Clearance 32.15 ml/min (50-250); Glucose 102 mg/dL (70-99); Sodium Level 138 mmol/L (133-145)
[2024-09-09 09:54] VITALS: BP 122/59; PULSE 59; RESP 17; TEMP 36.8; O2SAT 95
[2024-09-09] MEDS: Ramipril 2.5 MG Capsule PO (09:59)
[2024-09-09] MEDS: Furosemide 40 MG Tablet PO (09:59)
[2024-09-09] MEDS: APIXABAN 5 MG TABLET PO ×2 (09:59→20:50)
[2024-09-09] MEDS: Potassium Chloride Oral Tablet 20 MEQ PO (09:59)
[2024-09-09 10:00] VITALS: PULSE 59
[2024-09-09] MEDS: Escitalopram Oxalate 20 MG Tablet PO (10:00)
[2024-09-09] MEDS: Metoprolol Tartrate 25 MG Tablet 12.5 MG PO ×2 (10:00→20:50)
[2024-09-09] MEDS: Nystatin Powder 15gm Bottle 1 APPLIC TOPICAL ×2 (10:01→20:49)
[2024-09-09] MEDS: Clopidogrel Bisulfate 75 MG Tablet PO (10:01)
[2024-09-09] MEDS: Senna/Docusate Sodium 1 Tablet PO ×2 (10:02→20:50)
--- NOTE | 2024-09-09 13:12 | NURSING ---
Drop Hammer Set Up Operator Note; Activity Asset: Chris Carrero has been on TCU in the past and remains independent in her choice of daily activities, however needs reminded of them more now. She has her smartphone and tablet she uses for coloring, games, talking w/family. She has a bit more confusion this time due to UTI however remembers staff. Staff will encourage social activities, remind her of weekly activities and respect her right to say no.
--- NOTE | 2024-09-09 15:29 | CASEMGMT ---
Social Work SW phoned dtrLinn, but dtr was present in pt's room. SW presented to bedside. Inquired to dtr how things were going at home prior to admission. 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 Less interest in doing activities, being more confused, dtr described it as euphoric, pt was disoriented. Dtr took pt to urgent care and all tests came back negative. However, with the noted decline, is when dtr brought her to the hospital. Dtr did inquire about Lewy Body Dementia (LBD). SW briefly educated to the 'rollercoaster' of good/bad days, which is consistent with the dtr's description of being at dtr's home, and no medical reason for the decline. SW offered further education on the disease. Dtr accepted with appreciation. Dtr noted the appt with neurologist. SW and dtr discussed admission to AL. Dtr explained she really wants pt in [facility] for several reasons, but understands there is no availability. SW explained discussion with dtrKiara, on recommendation to not change environments multiple times, if that be avoided. Dtr agreed as she just moved furniture around in her living room and pt became confused thinking she was in a different house. SW explained if the goal is for pt to only go to [facility], then pt would DC back to [facility]'s house, then to hire additional assistance for pt not to be left alone for any period of time. Educated to private duty aides, [employer], camera system in the home. Explained pt thrived in TCU prior admission d/t structure, routine and socialization. Dtr agreed. SW noted [employer] could be a great resource to offer all of those things. Dtr accepting of resources. Dtr stated she will discuss with siblings on plan for DC. SW offered ongoing assistance. - DB sent Kiara cote, email with resources, education and website for [email or web address], for further education, and to provide all resources to sister. Leonie Giordano BOW MACHINE OPERATOR SALES ASSOCIATE FISHING
[2024-09-09] MEDS: Mirtazapine 15 MG Tablet 7.5 MG PO (20:49)
[2024-09-09] MEDS: Pantoprazole Sodium 20 MG Tablet PO (20:49)
[2024-09-09 20:50] VITALS: BP 125/46; PULSE 60
[2024-09-09] MEDS: Atorvastatin Calcium 80 MG Tablet PO (20:50)
[2024-09-09] MEDS: QUEtiapine 25 MG Tablet 12.5 MG PO (20:51)
[2024-09-10 08:37] VITALS: BP 117/51; PULSE 56; RESP 17; TEMP 36.4; O2SAT 95
[2024-09-10] MEDS: Potassium Chloride Oral Tablet 20 MEQ PO (08:41)
[2024-09-10] MEDS: Furosemide 40 MG Tablet PO (08:41)
[2024-09-10] MEDS: APIXABAN 5 MG TABLET PO ×2 (08:41→20:15)
[2024-09-10] MEDS: Escitalopram Oxalate 20 MG Tablet PO (08:42)
[2024-09-10] MEDS: Nystatin Powder 15gm Bottle 1 APPLIC TOPICAL ×2 (08:42→20:17)
[2024-09-10] MEDS: Clopidogrel Bisulfate 75 MG Tablet PO (08:42)
[2024-09-10] MEDS: Senna/Docusate Sodium 1 Tablet PO ×2 (08:42→20:13)
[2024-09-10 12:16] VITALS: BP 161/66; PULSE 63
[2024-09-10] MEDS: Metoprolol Tartrate 25 MG Tablet 12.5 MG PO (12:16)
[2024-09-10] MEDS: Ramipril 2.5 MG Capsule PO (12:16)
--- NOTE | 2024-09-10 14:46 | CHAPLAIN ---
Type of Pastoral Visit _x__ Initial Visit ___ Follow-up Visit ___ On-call Visit ___ General Patient Visit ___ Spiritual Assessment ___ Family Conference ___ Bereavement ___ Rapid Response ___ Code Blue ___ Other (describe below) Pastoral Care Referral From ___ Patient _x__ Family ___ Nurse ___ Physician ___ [place] ___ Clerical Transcriber ___ Other (describe below) Sacrament/Intervention _x__ Active listening ___ Anointing ___ Restoration ___ Bereavement ___ Communion ___ Amanda exploration ___ _x__ Life review _x__ Prayer ___ Reconciliation ___ Sacrament of Sick _x__ Supportive presence ___ Wedding ___ Other (describe below) Pastoral Comments patient admits that she is having some memory issues and will be having an evaluation with a neurologist soon; pt expresses some worry that she may be having early dementia; pt is asked about her feelings on that topic; pt affirms her amanda in God and how he has brought her through in the past; pt also engages in small talk about life in general; pt welcomes casual conversation, being asked about her feelings, and getting some time to have visitors; prayer was welcomed;
[2024-09-10] MEDS: QUEtiapine 25 MG Tablet 12.5 MG PO (20:12)
[2024-09-10] MEDS: traMADol 50 MG Tablet PO (20:12)
[2024-09-10] MEDS: Atorvastatin Calcium 80 MG Tablet PO (20:15)
[2024-09-10 20:16] VITALS: BP 137/52; PULSE 52
[2024-09-10] MEDS: Pantoprazole Sodium 20 MG Tablet PO (20:17)
[2024-09-10] MEDS: Mirtazapine 15 MG Tablet 7.5 MG PO (20:17)
[2024-09-10 20:24] VITALS: PULSE 54; RESP 16; O2SAT 96
[2024-09-11 03:36] VITALS: PULSE 52; RESP 18; O2SAT 95
[2024-09-11] MEDS: Ramipril 2.5 MG Capsule PO (08:56)
[2024-09-11] MEDS: Furosemide 40 MG Tablet PO (08:56)
[2024-09-11] MEDS: Nystatin Powder 15gm Bottle 1 APPLIC TOPICAL ×2 (08:56→20:20)
[2024-09-11] MEDS: Ergocalciferol 1.25 MG (50, 000 UNIT) Capsule PO (08:56)
[2024-09-11] MEDS: Potassium Chloride Oral Tablet 20 MEQ PO (08:57)
[2024-09-11] MEDS: Clopidogrel Bisulfate 75 MG Tablet PO (08:57)
[2024-09-11] MEDS: Escitalopram Oxalate 20 MG Tablet PO (08:57)
[2024-09-11] MEDS: APIXABAN 5 MG TABLET PO ×2 (08:59→20:19)
[2024-09-11] MEDS: Senna/Docusate Sodium 1 Tablet PO ×2 (09:00→20:18)
[2024-09-11 10:47] VITALS: PULSE 53
[2024-09-11 12:45] VITALS: O2SAT 98
[2024-09-11 16:00] VITALS: BP 130/59; PULSE 65; RESP 18; TEMP 36.9; O2SAT 96
[2024-09-11 20:17] VITALS: BP 140/58; PULSE 62
[2024-09-11] MEDS: traMADol 50 MG Tablet PO (20:17)
[2024-09-11] MEDS: Metoprolol Tartrate 25 MG Tablet 12.5 MG PO (20:17)
[2024-09-11] MEDS: QUEtiapine 25 MG Tablet 12.5 MG PO (20:18)
[2024-09-11] MEDS: Mirtazapine 15 MG Tablet 7.5 MG PO (20:18)
[2024-09-11] MEDS: Pantoprazole Sodium 20 MG Tablet PO (20:19)
[2024-09-11] MEDS: Atorvastatin Calcium 80 MG Tablet PO (20:19)
[2024-09-12] MEDS: Acetaminophen 500 MG Tablet 1000 MG PO (00:09)
[2024-09-12 08:55] VITALS: BP 134/51; PULSE 50
[2024-09-12] MEDS: Senna/Docusate Sodium 1 Tablet PO (09:01)
[2024-09-12] MEDS: Escitalopram Oxalate 20 MG Tablet PO (09:01)
[2024-09-12] MEDS: APIXABAN 5 MG TABLET PO ×2 (09:01→19:48)
[2024-09-12] MEDS: Potassium Chloride Oral Tablet 20 MEQ PO (09:01)
[2024-09-12] MEDS: Ramipril 2.5 MG Capsule PO (09:01)
[2024-09-12] MEDS: Clopidogrel Bisulfate 75 MG Tablet PO (09:02)
[2024-09-12] MEDS: Furosemide 40 MG Tablet PO (09:02)
[2024-09-12] MEDS: Nystatin Powder 15gm Bottle 1 APPLIC TOPICAL ×2 (09:02→19:49)
[2024-09-12 15:35] VITALS: BP 125/53; PULSE 52; RESP 14; TEMP 36.1; O2SAT 99
[2024-09-12] MEDS: traMADol 50 MG Tablet PO (19:47)
[2024-09-12] MEDS: Pantoprazole Sodium 20 MG Tablet PO (19:47)
[2024-09-12] MEDS: QUEtiapine 25 MG Tablet 12.5 MG PO (19:47)
[2024-09-12] MEDS: Mirtazapine 15 MG Tablet 7.5 MG PO (19:47)
[2024-09-12 19:48] VITALS: PULSE 64
[2024-09-12] MEDS: Atorvastatin Calcium 80 MG Tablet PO (19:48)
[2024-09-12] MEDS: Metoprolol Tartrate 25 MG Tablet 12.5 MG PO (19:48)
[2024-09-13 07:08] VITALS: O2SAT 96
[2024-09-13 07:33] VITALS: BP 120/59; PULSE 61; RESP 17; TEMP 36.6; O2SAT 99
[2024-09-13] MEDS: APIXABAN 5 MG TABLET PO ×2 (07:35→20:50)
[2024-09-13] MEDS: Furosemide 40 MG Tablet PO (07:35)
[2024-09-13] MEDS: Potassium Chloride Oral Tablet 20 MEQ PO (07:35)
[2024-09-13 07:36] VITALS: PULSE 61
[2024-09-13] MEDS: Metoprolol Tartrate 25 MG Tablet 12.5 MG PO ×2 (07:36→20:50)
[2024-09-13] MEDS: Escitalopram Oxalate 20 MG Tablet PO (07:36)
[2024-09-13] MEDS: Clopidogrel Bisulfate 75 MG Tablet PO (07:36)
[2024-09-13] MEDS: Senna/Docusate Sodium 1 Tablet PO ×2 (07:36→20:51)
[2024-09-13] MEDS: Nystatin Powder 15gm Bottle 1 APPLIC TOPICAL ×2 (07:37→20:51)
[2024-09-13] MEDS: Ramipril 2.5 MG Capsule PO (07:41)
--- NOTE | 2024-09-13 08:29 | NURSING ---
Offered covid vaccine, VIS provided. Resident declines at this time.
--- NOTE | 2024-09-13 10:59 | CASEMGMT ---
Social Work SW communicated with dtr, Kiara, on DC plan and neurology appts. Pt has neurologist appt [facility] - no other provider had earlier availability. Dtr confirmed plan from TCU is AL, providing choices: [facility] (which does not have current openings), [facility], [facility], and [facility]. Pt can pay privately for 2-4 months then will need to apply for AL Waiver. DB to place referrals and notify Dr of outcomes and plan for assessments. Leonie Giordano FOUNDRY OPERATOR SENIOR ADMINISTRATIVE SUPPORT
--- NOTE | 2024-09-13 11:21 | NURSING ---
pt with increased confusion today and last night per night clerk auditor RN. pt is and was getting up without calling for assist. MIX MAKER's also feel pt more confused today, looking for a baby.
--- NOTE | 2024-09-13 11:23 | NURSING ---
dr walker notified new order for [facility] & culture
[2024-09-13 11:51] LABS: Bacteria 0 SEEN /hpf (None Seen); Mucous, Urine 0 SEEN /hpf (<or=2+)
[2024-09-13 11:56] LABS: Color, Urine Yellow (Yellow); Glucose, Dipstick Normal (Normal); Ketone-Dipstick Negative (Negative); Leukocyte Esterase-Dipstick 25 /ul (Negative); Nitrite-Dipstick Negative (Negative); Occult Blood-Urine 250 /ul (Negative); Protein-Dipstick 30 mg/dl (Negative); Urine Bilirubin Dipstick Negative (Negative); Urine Clarity Sl. Cloudy (Clear); Urine Urobilinogen Normal (Normal)
[2024-09-13 12:16] LABS: Red Blood Cells-Urine 25-50 SEEN /hpf (0-5); Squamous Epithelial Cells - UA 0-5 SEEN /hpf (5-10)
[2024-09-13 12:17] LABS: White Blood Cells 0-5 SEEN /hpf (0-5)
--- NOTE | 2024-09-13 13:24 | PCA ---
Patient becoming restless hearing and seeing things that are not in the room, she has stated she wants to go home, self transfers with out ringing for staff help. nurse is aware of behavior
[2024-09-13] MEDS: traMADol 50 MG Tablet PO (20:49)
[2024-09-13 20:50] VITALS: BP 157/71; PULSE 62
[2024-09-13] MEDS: Pantoprazole Sodium 20 MG Tablet PO (20:50)
[2024-09-13] MEDS: Atorvastatin Calcium 80 MG Tablet PO (20:50)
[2024-09-13] MEDS: Mirtazapine 15 MG Tablet 7.5 MG PO (20:50)
[2024-09-13] MEDS: QUEtiapine 25 MG Tablet 12.5 MG PO (20:52)
[2024-09-14 00:30] VITALS: PULSE 59; RESP 16
--- NOTE | 2024-09-14 07:12 | NURSING ---
patient c/o chronic back and knee pain, rates 10/10 at times, patient states the doctor said I can't get surgery on it and I am supposed to see pain management. Written communication left for Dr. Daniel
[2024-09-14 07:47] VITALS: BP 135/58; PULSE 55; RESP 18; TEMP 36.5; O2SAT 96
[2024-09-14 09:41] VITALS: BP 152/59; PULSE 62; RESP 18; TEMP 36.2; O2SAT 98
[2024-09-14 09:44] VITALS: PULSE 62
[2024-09-14] MEDS: Furosemide 40 MG Tablet PO (09:44)
[2024-09-14] MEDS: Ramipril 2.5 MG Capsule PO (09:44)
[2024-09-14] MEDS: Escitalopram Oxalate 20 MG Tablet PO (09:44)
[2024-09-14] MEDS: Clopidogrel Bisulfate 75 MG Tablet PO (09:44)
[2024-09-14] MEDS: Metoprolol Tartrate 25 MG Tablet 12.5 MG PO (09:44)
[2024-09-14] MEDS: Arthritis Pain Compound 60 CLICK TUBE TOPICAL ×2 (09:45→20:32)
[2024-09-14] MEDS: APIXABAN 5 MG TABLET PO ×2 (09:45→20:32)
[2024-09-14] MEDS: Senna/Docusate Sodium 1 Tablet PO ×2 (09:45→20:34)
[2024-09-14] MEDS: Potassium Chloride Oral Tablet 20 MEQ PO (09:45)
[2024-09-14] MEDS: Nystatin Powder 15gm Bottle 1 APPLIC TOPICAL ×2 (09:45→20:31)
--- NOTE | 2024-09-14 10:10 | NURSING ---
PAIN MANAGEMENT OFFICE NOTIFIED OF CONSULT AT THIS TIME
--- NOTE | 2024-09-14 10:14 | PCM.CONS.GEN ---
Assessment & Plan Assessment/Plan (1) Osteoarthritis of right knee: QUALIFIERS: Osteoarthritis type: primary Qualified Code(s): M17.11 - Unilateral primary osteoarthritis, right knee (2) Spondylosis of lumbar joint: PLAN: Plan KNEE PAIN Right knee severe OA per xray. Dr. Blaek performed recent knee steroid injection 2 weeks ago. Non surgical candidate Says it started helping her a week ago or so. Still has pain with activity. She is recovering from hallucinations/mentation concerns, so i am weary of adding medication that might worsen her mental status. Tylenol 1000mg TID PRN I also spoke with her daughter whom (Ms. Jenkins), whom helps with medical decision making at the patients behest. I discussed possible injectable options including steroid, hyaluronic acid and PRP. I also discussed possible genicular nerve blocks, this would be performed depending upon response to steroid injection. Avoid nsaids as she is on dual antiplatelets after recent ALTON placement BACK PAIN: She indicates her back hurts only if she stands or walks for a while. Possible that she has facet athritis vs stenosis. She will continue rehab efforts. Consider Lumbar MRI. Cannot perform CLAYTON given anticoagulation and recent stent placement. HPI Consult Data Date of Consult: 09/14/24 HPI Narrative Reason for Consultation: Back and knee pain HPI Narrative: RUBEN COSTELLO, is a 74 F who presented initially for concern for UTI/confusion. She was noted to have hallucinations in setting of possible UTI and lewy body dementia. She is not in TCU for debility. She is on apixaban and plavix in setting of recent ALTON in July. Lumbar XR showed evidence of degenerative changes including age indeterminant T11 vertebral fracture. She says her back hurts when she stands or walks for a while. It is not painful when sitting. She indicates that the knee pain is her primary complaint from a pain perspective. She says she recently saw Dr. Blake 2 weeks ago and was not a surgical candidate due to her medical comorbidities. XR showed severe OA. She was given steroid injection and told to see pain management. She states it did not help initially, but after a week or so it started improving. She still has pain with activity, standing ad ambulating. [facility] Medical History (Updated 09/14/24 @ 17:[address] Miles Valdes MD) Hyperlipidemia Hearing loss, right Hearing loss, left Rheumatoid arthritis Chronic pain Kidney disease Congestive heart failure (CHF) Hypertension Dementia Myocardial infarct Left bundle branch block H. pylori infection EBV positive mononucleosis syndrome Altered mental status Congestive heart failure Non-ST elevation HI (NSTEMI) Acute UTI Dyspnea on exertion History of fractured rib Recurrent falls Left renal stone Knee pain Wears glasses Anxiety Post-menopausal Arthritis High cholesterol Gastric reflux Non-smoker Shortness of breath on exertion History of edema History of echocardiogram History of stress test Cardiology follow-up encounter History of atrial fibrillation GERD (gastroesophageal reflux disease) CPAP (continuous positive airway pressure) dependence Sleep apnea Asthma DVT (deep venous thrombosis) Hydronephrosis Paroxysmal atrial fibrillation Morbid obesity Stage 3b chronic kidney disease (CKD) Paroxysmal A-fib Microcalcification of right breast on mammogram Erythematous bladder mucosa Left renal stone Kidney stone Essential hypertension Atherosclerotic heart disease of [place] coronary artery without angina pectoris TATIANA (obstructive sleep apnea) Hemorrhoids Depression Atherosclerosis of coronary 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 Chronic diastolic (congestive) heart failure Nonspecific abnormal unspecified cardiovascular function study Abnormal pulmonary function test Obesity TATIANA (obstructive sleep apnea) COPD (chronic obstructive pulmonary disease) Home Medications ?Medication ?Instructions ?Recorded ?Last Taken ?Type omeprazole 20 mg capsule,delayed 20 mg PO QHS Heartburn 06/22/19 09/04/24 21:00 History release cholecalciferol (vitamin D3) 1,250 1 cap PO SA vitamin 07/10/19 09/05/24 02:30 History mcg (50,000 unit) capsule escitalopram oxalate 20 mg tablet 20 mg PO DAILY DEPRESSION 05/15/21 07/27/24 History (Lexapro) apixaban 5 mg tablet (Eliquis) 5 mg PO BID Anticoagulant #180 tabs 02/16/24 09/04/24 21:00 Rx ramipril 2.5 mg capsule (Altace) 2.5 mg PO DAILY blood pressure #90 07/21/24 09/05/24 02:30 Rx caps acetaminophen 500 mg tablet 1,000 mg (2 x 500 mg) PO Q6H PRN 08/17/24 09/05/24 02:30 Rx Pain Score 1-5 #0 tabs atorvastatin 80 mg tablet 80 mg PO QHS cholesterol 30 days 08/17/24 09/04/24 21:00 Rx #30 tabs clopidogrel 75 mg tablet 75 mg PO DAILY anti-platelet 30 08/17/24 09/05/24 02:30 Rx days #30 tabs furosemide 40 mg tablet 40 mg PO DAILY fluid pill 30 days 08/17/24 09/05/24 02:30 Rx #30 tabs mirtazapine 15 mg tablet 7.5 mg (1/2 x 15 mg) PO QHS mood 08/17/24 09/04/24 21:00 Rx 30 days #15 tabs quetiapine 25 mg tablet 12.5 mg (1/2 x 25 mg) PO QPM 08/17/24 09/04/24 21:00 Rx hallucinations 30 days #15 tabs metoprolol tartrate 25 mg tablet 12.5 mg (1/2 x 25 mg) PO BID 08/25/24 09/05/24 02:30 Rx BP/pulse #60 tabs potassium chloride 20 mEq 20 meq PO QDAY supplement 08/25/24 09/05/24 02:30 History tablet,extended release tramadol 50 mg tablet 50 mg PO BID PRN PRN pain, severe 09/05/24 09/04/24 21:00 History Allergy/AdvReac Type Severity Reaction Status Date / Time acetaminophen (From Vicodin) Allergy Intermediate Hives Verified 08/25/24 11:03 fluoxetine (From Prozac) Allergy Intermediate Nausea Verified 08/25/24 11:03 hydrocodone (From Vicodin) Allergy Intermediate Hives Verified 08/25/24 11:03 promethazine (From Phenergan) Allergy Intermediate Itching Verified 08/25/24 11:03 sulfamethoxazole (From AdvReac Severe renal Verified 08/25/24 11:03 Bactrim) failure trimethoprim (From Bactrim) AdvReac Severe renal Verified 08/25/24 11:03 failure Family History Father Colon cancer Mother Cancer lung Other Gastric reflux Surgical History History of cardiac catheterization History of cystoscopy History of cholecystectomy History of coronary artery stent placement History of lithotripsy Hx of CABG Postsurgical aortocoronary bypass status Postsurgical percutaneous transluminal coronary angioplasty (PTCA) status S/P coronary artery stent placement (07/26/24) Social History (Updated 09/07/24 @ 19:[address] Kirk Daniel MD) household members: children and other details: Living with daughter. housing: house pets and animals: Yes pets and animals: dog(s) Smoking Status: Never smoker alcohol intake: never substance use type: does not use ROS Constitutional Constitutional: Denies chills, fever(s) or weight gain ENT HEENT: Denies headache(s), nasal congestion or nasal discharge Cardiovascular Cardiovascular: Denies chest pain or palpitations Respiratory/Chest Respiratory/Chest: Denies cough, excessive phlegm production or shortness of breath with exertion Gastrointestinal Gastrointestinal: Denies abdominal pain, nausea or vomiting Genitourinary Genitourinary: Denies dysuria Musculoskeletal Musculoskeletal: Denies joint pain or joint swelling Integumentary Integumentary: Denies rash or wounds Neurologic Neurologic: Denies focal weakness, numbness or tingling Psychiatric Psychiatric: Denies anxiety, auditory hallucinations, depression, homicidal ideation or suicidal ideation Physical Exam Narrative Some paraspinal tenderness Facet load + bilaterally Right knee tender to palpation Pain with rom of the right knee Sensation intact Motor 5/5 strength Const Constitutional Narrative: Mild confusion General Appearance: cooperative Lab / Micro Data 09/09/24 05:20 09/09/24 05:20 Labs: Laboratory Results - last 24 hr 09/13/24 11:40: Urine Color Yellow, Urine Clarity Sl. Cloudy, Urine pH 6.0, Ur Specific [employer] 1.010, Urine Protein 30 H, Urine Glucose (UA) Normal, Urine Ketones Negative, Urine Occult Blood 250 H, Urine Nitrite Negative, Urine Bilirubin Negative, Urine Urobilinogen Normal, Ur Leukocyte Esterase 25 H, Urine RBC 25-50 SEEN, Urine WBC 0-5 SEEN, Ur Squamous Epith Cells 0-5 SEEN, Urine Bacteria 0 SEEN, Urine Mucus 0 SEEN Imaging XR right knee IMPRESSION: Severe right knee osteoarthrosis and resulting varus deformity as above.
--- NOTE | 2024-09-14 10:15 | NURSING ---
dr senior here to see pt
[2024-09-14 10:45] VITALS: BMI 40.0
[2024-09-14 13:22] VITALS: RESP 18
--- NOTE | 2024-09-14 14:31 | CHAPLAIN ---
Type of Pastoral Visit ___ Initial Visit _x__ Follow-up Visit ___ On-call Visit ___ General Patient Visit ___ Spiritual Assessment ___ Family Conference ___ Bereavement ___ Rapid Response ___ Code Blue ___ Other (describe below) Pastoral Care Referral From ___ Patient _x__ Family ___ Nurse ___ Physician ___ Analytical Scientist ___ Motorman/Woman ___ Other (describe below) Sacrament/Intervention ___ Active listening ___ Anointing ___ Yazidism ___ Bereavement ___ Communion ___ Amanda exploration ___ ___ Life review ___ Prayer ___ Reconciliation ___ Sacrament of Sick _x__ Supportive presence ___ Wedding ___ Other (describe below) Pastoral Comments this was a brief hello and check in to the patient; pt says that she is doing fine but has tired legs from her exercise earlier; pt needed staff care and thus the visit ended
--- NOTE | 2024-09-14 14:42 | CASEMGMT ---
Social Work SW completed BIMS (05/16) and PHQ-2 () for MDS assessment. Leonie Giordano LOCAL OPERATOR CYBER REVERSE ENGINEER
[2024-09-14 20:31] VITALS: BP 132/54; PULSE 52
[2024-09-14] MEDS: Mirtazapine 15 MG Tablet 7.5 MG PO (20:33)
[2024-09-14] MEDS: Atorvastatin Calcium 80 MG Tablet PO (20:33)
[2024-09-14] MEDS: Pantoprazole Sodium 20 MG Tablet PO (20:33)
[2024-09-14] MEDS: QUEtiapine 25 MG Tablet 12.5 MG PO (20:34)
[2024-09-14] MEDS: traMADol 50 MG Tablet PO (23:11)
[2024-09-15 01:00] VITALS: PULSE 62; RESP 16
[2024-09-15 05:37] LABS: Absolute Neutrophil Count 4.7 X10^3/uL (2.0-7.7); Basophil# 0.05 X10^3/uL; Basophil% 0.5 % (0-1); Eosinophil# 0.26 X10^3/uL; Eosinophils% 2.8 % (0-5); Hematocrit 26.5 % (37-47); Hemoglobin 8.7 g/dL (12.0-15.0); Lymphocyte % 37.6 % (19-41); Mean Corp Hgb Conc 32.8 g/dL (32-36); Mean Corpuscular Hgb 30.9 pg (27.0-32.0); Mean Platelet Vol. 10.3 fl (6.2-12.0); Monocyte# 0.79 X10^3/uL; Monocyte% 8.5 % (0-10); NRBC Flagged by Analyzer 0 % (0-5); Neutrophil # 4.67 X10^3/uL (2.7-7.7); Neutrophil % 50.2 % (47-70); Platelet Count 221 K/mm3 (150-450); Red Blood Count 2.82 M/mm3 (4.2-5.4); White Blood Count 9.3 K/mm3 (4.4-11.0)
[2024-09-15 06:11] LABS: Anion Gap 11 (5-15); BUN 67 mg/dL (4-19); BUN/Creat Ratio 38.2 RATIO (10-20); Calcium,Total 9.3 mg/dL (7.6-11.0); Carbon Dioxide 20.5 mmol/L (21.0-32.0); Chloride 103 mmol/L (98-108); Creatinine, Serum 1.75 mg/dL (0.70-1.20); EST Glomerular Filtration Rate 30 (>60); Glucose 107 mg/dL (70-99); Potassium 4.1 mmol/L (3.3-5.1); Sodium Level 135 mmol/L (133-145)
--- NOTE | 2024-09-15 08:07 | NURSING ---
Green Meat Grader Note; MDS for 09/14/2024 Complete
[2024-09-15 09:10] VITALS: BP 110/53; PULSE 54; RESP 18; TEMP 36.6; O2SAT 96
[2024-09-15 09:31] VITALS: PULSE 62
[2024-09-15] MEDS: Senna/Docusate Sodium 1 Tablet PO ×2 (09:32→20:05)
[2024-09-15] MEDS: Potassium Chloride Oral Tablet 20 MEQ PO (09:32)
[2024-09-15] MEDS: Escitalopram Oxalate 20 MG Tablet PO (09:32)
[2024-09-15] MEDS: Clopidogrel Bisulfate 75 MG Tablet PO (09:32)
[2024-09-15 09:33] VITALS: PULSE 62
[2024-09-15] MEDS: Ramipril 2.5 MG Capsule PO (09:33)
[2024-09-15] MEDS: Furosemide 40 MG Tablet PO (09:33)
[2024-09-15] MEDS: Metoprolol Tartrate 25 MG Tablet 12.5 MG PO ×2 (09:33→20:07)
[2024-09-15] MEDS: APIXABAN 5 MG TABLET PO ×2 (09:33→20:05)
[2024-09-15] MEDS: Nystatin Powder 15gm Bottle 1 APPLIC TOPICAL ×2 (09:35→20:07)
[2024-09-15] MEDS: Arthritis Pain Compound 60 CLICK TUBE TOPICAL ×2 (09:36→20:06)
[2024-09-15] MEDS: Tuberculin,Purif.prot.deriv. 50 TU/ML Vial 0.1 ML ID (10:02)
--- NOTE | 2024-09-15 10:21 | CASEMGMT ---
Social Work IDT met with patient and dtr, Kiara, for care plan meeting. Discussed patient's progress in PT/OT/ST/SN. Educated to Medicare benefit. Pt is currently on day , including last visit. IDT is recommending pt DC to a SNF, possibly with memory care unit, as noted pt's decline since last admission. Increased confusion, hallucinations/delusions, and physical assistance. SW informed dtr that [facility] can accept in SNF and has memory care unit. [facility] is not appropriate given their set-up. [facility] not have a [facility] care unit in [place] or SNF. [facility] currently does not have beds in the SNF and the [place] Waiver is not approved yet. [facility] can accept in SNF, then transition to [place] in appropriate once a bed is available. Pt remains third on waitlist at [facility]. Inquired dtr's preference for DC. IDT is ready to set DC date once plans are confirmed. Pt and dtr tearful. Pt asked questions and being in a facility. SW encouraged pt reminding her that she thrives in this environment, loves activities and socialization, and can continuously be checked on at a facility. Pt can pay for a private room to still allow that privacy and peace. Pt accepting. SW will await outcome of dtr's SNF decision. Leonie Giordano MSW ELECTRIC SHAVER MECHANIC
[2024-09-15] MEDS: traMADol 50 MG Tablet PO (20:04)
[2024-09-15] MEDS: Mirtazapine 15 MG Tablet 7.5 MG PO (20:05)
[2024-09-15] MEDS: Pantoprazole Sodium 20 MG Tablet PO (20:06)
[2024-09-15] MEDS: QUEtiapine 25 MG Tablet 12.5 MG PO (20:06)
[2024-09-15 20:07] VITALS: BP 137/53; PULSE 69
[2024-09-15] MEDS: Atorvastatin Calcium 80 MG Tablet PO (20:07)
[2024-09-16 09:30] VITALS: BP 116/52; PULSE 54
[2024-09-16] MEDS: Potassium Chloride Oral Tablet 20 MEQ PO (09:30)
[2024-09-16] MEDS: Ramipril 2.5 MG Capsule PO (09:30)
[2024-09-16] MEDS: Senna/Docusate Sodium 1 Tablet PO (09:31)
[2024-09-16] MEDS: Arthritis Pain Compound 60 CLICK TUBE TOPICAL ×2 (09:31→20:50)
[2024-09-16] MEDS: Escitalopram Oxalate 20 MG Tablet PO (09:31)
[2024-09-16] MEDS: Furosemide 40 MG Tablet PO (09:31)
[2024-09-16] MEDS: Clopidogrel Bisulfate 75 MG Tablet PO (09:31)
[2024-09-16] MEDS: APIXABAN 5 MG TABLET PO ×2 (09:31→20:47)
--- NOTE | 2024-09-16 10:48 | CASEMGMT ---
Social Work SW spoke with dtr further on SNFs. Educated and provided a link to Medicare.gov/nursinghomecompare for the 3 SNFs in question. Discussed star rating measures and encouraged dtr tour facilities with a new perspective. Dtr agreed and appreciative of assistance and support. - SW notified this worker that she has scheduled tours with [facility] on 09/[address] 09[address]. Dtr prefers DC between 09/27-09/29 as she is off work. SW agreed. DB will continue to follow. Leonie Giordano CULTURAL ANTHROPOLOGY PROFESSOR MATHEMATICAL SCIENCES PROFESSOR
--- NOTE | 2024-09-16 13:12 | MDS.RN ---
Information for the MDS was obtained from review of the clinical record, interview of resident, staff, and direct observation of resident?s care.
[2024-09-16] MEDS: Nystatin Powder 15gm Bottle 1 APPLIC TOPICAL ×2 (13:39→20:55)
[2024-09-16 14:49] VITALS: BP 113/53; PULSE 51; RESP 14; TEMP 36.7; O2SAT 98
[2024-09-16] MEDS: Colchicine 0.6 MG TABLET PO (17:40)
[2024-09-16] MEDS: traMADol 50 MG Tablet PO (20:47)
[2024-09-16] MEDS: Atorvastatin Calcium 80 MG Tablet PO (20:48)
[2024-09-16] MEDS: Pantoprazole Sodium 40 MG Tablet PO (20:48)
[2024-09-16] MEDS: QUEtiapine 25 MG Tablet 12.5 MG PO (20:49)
[2024-09-16] MEDS: Mirtazapine 15 MG Tablet 7.5 MG PO (20:49)
[2024-09-16 20:55] VITALS: BP 97/52; PULSE 52
[2024-09-17] MEDS: Acetaminophen 500 MG Tablet 1000 MG PO (01:43)
[2024-09-17 09:43] VITALS: BP 144/57; PULSE 60; RESP 17; TEMP 36.4; O2SAT 96
[2024-09-17] MEDS: Potassium Chloride Oral Tablet 20 MEQ PO (09:44)
[2024-09-17] MEDS: MethylPREDNISolone DosePak 4 MG BOX PO ×4 (09:45→20:18)
[2024-09-17] MEDS: Ramipril 2.5 MG Capsule PO (09:46)
[2024-09-17] MEDS: APIXABAN 5 MG TABLET PO ×2 (09:46→20:20)
[2024-09-17] MEDS: Furosemide 40 MG Tablet PO (09:46)
[2024-09-17] MEDS: Arthritis Pain Compound 60 CLICK TUBE TOPICAL ×2 (09:46→20:19)
[2024-09-17] MEDS: Colchicine 0.6 MG TABLET PO (09:46)
[2024-09-17 09:47] VITALS: PULSE 60
[2024-09-17] MEDS: Metoprolol Tartrate 25 MG Tablet 12.5 MG PO (09:47)
[2024-09-17] MEDS: Nystatin Powder 15gm Bottle 1 APPLIC TOPICAL ×2 (09:47→20:21)
[2024-09-17] MEDS: Escitalopram Oxalate 20 MG Tablet PO (09:47)
[2024-09-17] MEDS: Clopidogrel Bisulfate 75 MG Tablet PO (09:48)
[2024-09-17 20:14] VITALS: BP 164/66; PULSE 55; RESP 16
[2024-09-17 20:20] VITALS: BP 164/66; PULSE 55
[2024-09-17] MEDS: Atorvastatin Calcium 80 MG Tablet PO (20:20)
[2024-09-17] MEDS: Pantoprazole Sodium 40 MG Tablet PO (20:21)
[2024-09-17] MEDS: Senna/Docusate Sodium 1 Tablet PO (20:22)
[2024-09-17] MEDS: Mirtazapine 15 MG Tablet 7.5 MG PO (20:22)
[2024-09-17] MEDS: QUEtiapine 25 MG Tablet 12.5 MG PO (20:23)
[2024-09-17] MEDS: traMADol 50 MG Tablet PO (20:24)
--- NOTE | 2024-09-17 20:28 | NURSING ---
Patient very confused, agitated with person on phone, arguing with them. Attempted to redirect. HS medications given without difficulty. Will continue to monitor.
[2024-09-17 20:33] VITALS: PULSE 55; RESP 16; O2SAT 98
[2024-09-18 08:19] VITALS: BP 138/60; PULSE 60; RESP 17; TEMP 36.7; O2SAT 95
[2024-09-18] MEDS: MethylPREDNISolone DosePak 4 MG BOX PO ×4 (08:21→20:17)
[2024-09-18] MEDS: Potassium Chloride Oral Tablet 20 MEQ PO (08:21)
[2024-09-18] MEDS: Ramipril 2.5 MG Capsule PO (08:22)
[2024-09-18] MEDS: APIXABAN 5 MG TABLET PO ×2 (08:22→20:15)
[2024-09-18] MEDS: Colchicine 0.6 MG TABLET PO (08:22)
[2024-09-18] MEDS: Arthritis Pain Compound 60 CLICK TUBE TOPICAL ×2 (08:22→20:14)
[2024-09-18] MEDS: Furosemide 40 MG Tablet PO (08:23)
[2024-09-18 08:24] VITALS: PULSE 60
[2024-09-18] MEDS: Clopidogrel Bisulfate 75 MG Tablet PO (08:24)
[2024-09-18] MEDS: Nystatin Powder 15gm Bottle 1 APPLIC TOPICAL ×2 (08:24→20:23)
[2024-09-18] MEDS: Metoprolol Tartrate 25 MG Tablet 12.5 MG PO (08:24)
[2024-09-18] MEDS: Escitalopram Oxalate 20 MG Tablet PO (08:24)
[2024-09-18] MEDS: Ergocalciferol 1.25 MG (50, 000 UNIT) Capsule PO (08:25)
[2024-09-18] MEDS: traMADol 50 MG Tablet PO (20:14)
[2024-09-18] MEDS: Mirtazapine 15 MG Tablet 7.5 MG PO (20:15)
[2024-09-18] MEDS: Atorvastatin Calcium 80 MG Tablet PO (20:16)
[2024-09-18 20:17] VITALS: BP 134/59; PULSE 53
[2024-09-18] MEDS: Pantoprazole Sodium 40 MG Tablet PO (20:18)
[2024-09-18] MEDS: Senna/Docusate Sodium 1 Tablet PO (20:18)
[2024-09-18] MEDS: QUEtiapine 25 MG Tablet 12.5 MG PO (20:18)
[2024-09-19] MEDS: MethylPREDNISolone DosePak 4 MG BOX PO ×4 (09:26→20:14)
[2024-09-19] MEDS: Potassium Chloride Oral Tablet 20 MEQ PO (09:26)
[2024-09-19] MEDS: Escitalopram Oxalate 20 MG Tablet PO (09:27)
[2024-09-19] MEDS: Colchicine 0.6 MG TABLET PO (09:28)
[2024-09-19] MEDS: Furosemide 40 MG Tablet PO (09:28)
[2024-09-19] MEDS: APIXABAN 5 MG TABLET PO ×2 (09:28→20:15)
[2024-09-19] MEDS: Ramipril 2.5 MG Capsule PO (09:29)
[2024-09-19] MEDS: Arthritis Pain Compound 60 CLICK TUBE TOPICAL ×2 (09:29→20:18)
[2024-09-19] MEDS: Clopidogrel Bisulfate 75 MG Tablet PO (09:30)
[2024-09-19] MEDS: Nystatin Powder 15gm Bottle 1 APPLIC TOPICAL ×2 (09:31→20:21)
[2024-09-19 09:34] VITALS: BP 118/54; PULSE 54
[2024-09-19 15:59] VITALS: BP 118/54; PULSE 56; RESP 18; TEMP 36.6; O2SAT 98
[2024-09-19 16:02] VITALS: PULSE 56; RESP 18; O2SAT 98
[2024-09-19 20:12] VITALS: BP 150/79; PULSE 61; O2SAT 96
[2024-09-19] MEDS: traMADol 50 MG Tablet PO (20:13)
[2024-09-19] MEDS: Mirtazapine 15 MG Tablet 7.5 MG PO (20:14)
[2024-09-19] MEDS: Pantoprazole Sodium 40 MG Tablet PO (20:15)
[2024-09-19] MEDS: QUEtiapine 25 MG Tablet 12.5 MG PO (20:15)
[2024-09-19] MEDS: Atorvastatin Calcium 80 MG Tablet PO (20:15)
[2024-09-19] MEDS: Senna/Docusate Sodium 1 Tablet PO (20:15)
[2024-09-19 20:16] VITALS: BP 150/79; PULSE 61
[2024-09-19] MEDS: Metoprolol Tartrate 25 MG Tablet 12.5 MG PO (20:16)
[2024-09-20 09:31] VITALS: PULSE 65
[2024-09-20] MEDS: Metoprolol Tartrate 25 MG Tablet 12.5 MG PO ×2 (09:31→21:27)
[2024-09-20] MEDS: Ramipril 2.5 MG Capsule PO (09:31)
[2024-09-20] MEDS: Clopidogrel Bisulfate 75 MG Tablet PO (09:31)
[2024-09-20] MEDS: Potassium Chloride Oral Tablet 20 MEQ PO (09:31)
[2024-09-20] MEDS: APIXABAN 5 MG TABLET PO ×2 (09:31→21:27)
[2024-09-20] MEDS: MethylPREDNISolone DosePak 4 MG BOX PO ×3 (09:31→21:27)
[2024-09-20] MEDS: Escitalopram Oxalate 20 MG Tablet PO (09:32)
[2024-09-20] MEDS: Arthritis Pain Compound 60 CLICK TUBE TOPICAL ×2 (09:32→21:27)
[2024-09-20] MEDS: Colchicine 0.6 MG TABLET PO (09:32)
[2024-09-20] MEDS: Furosemide 40 MG Tablet PO (09:32)
[2024-09-20 10:00] VITALS: PULSE 60; RESP 17; O2SAT 97
[2024-09-20] MEDS: Nystatin Powder 15gm Bottle 1 APPLIC TOPICAL ×2 (10:06→21:28)
[2024-09-20 15:22] VITALS: BP 163/66; PULSE 65; RESP 17; TEMP 36.8; O2SAT 96
[2024-09-20 21:27] VITALS: BP 158/68; PULSE 54
[2024-09-20] MEDS: Mirtazapine 15 MG Tablet 7.5 MG PO (21:27)
[2024-09-20] MEDS: Pantoprazole Sodium 40 MG Tablet PO (21:27)
[2024-09-20] MEDS: Atorvastatin Calcium 80 MG Tablet PO (21:27)
[2024-09-20] MEDS: QUEtiapine 25 MG Tablet 12.5 MG PO (21:28)
[2024-09-20] MEDS: Senna/Docusate Sodium 1 Tablet PO (21:28)
[2024-09-20 21:52] VITALS: BP 158/68; PULSE 54
[2024-09-20 22:06] LABS: Bacteria 0 SEEN /hpf (None Seen); Mucous, Urine 0 SEEN /hpf (<or=2+)
[2024-09-20 22:07] LABS: Color, Urine Yellow (Yellow); Glucose, Dipstick Normal (Normal); Ketone-Dipstick Negative (Negative); Leukocyte Esterase-Dipstick 500 /ul (Negative); Nitrite-Dipstick Negative (Negative); Occult Blood-Urine 250 /ul (Negative); Protein-Dipstick 30 mg/dl (Negative); Urine Bilirubin Dipstick Negative (Negative); Urine Clarity Cloudy (Clear); Urine Urobilinogen Normal (Normal)
[2024-09-20 22:19] LABS: Red Blood Cells-Urine > 100 SEEN /hpf (0-5); White Blood Cells 25-50 SEEN /hpf (0-5)
[2024-09-20 22:20] LABS: Squamous Epithelial Cells - UA 0-5 SEEN /hpf (5-10)
--- NOTE | 2024-09-21 09:10 | CASEMGMT ---
Social Work SW received call from dtr requesting referral to [facility] Memory Care Unit. SW sent referral via [employer]. TECHNICAL ACCOUNT REPRESENTATIVE and DATA PROCESSING MECHANIC reports to this worker that pt's hallucinations are severely worsening and provided examples. SW will continue to follow. Leonie Giordano MSW HEAD OF ADVERTISING
[2024-09-21 09:13] VITALS: BP 138/62; PULSE 55; RESP 18; TEMP 36.1; O2SAT 97
[2024-09-21] MEDS: APIXABAN 5 MG TABLET PO ×2 (09:13→20:40)
[2024-09-21] MEDS: Ramipril 2.5 MG Capsule PO (09:13)
[2024-09-21] MEDS: Arthritis Pain Compound 60 CLICK TUBE TOPICAL ×2 (09:13→20:40)
[2024-09-21] MEDS: Colchicine 0.6 MG TABLET PO (09:13)
[2024-09-21] MEDS: Furosemide 40 MG Tablet PO (09:13)
[2024-09-21] MEDS: Metoprolol Tartrate 25 MG Tablet 12.5 MG PO (09:13)
[2024-09-21] MEDS: Potassium Chloride Oral Tablet 20 MEQ PO (09:13)
[2024-09-21] MEDS: Escitalopram Oxalate 20 MG Tablet PO (09:14)
[2024-09-21] MEDS: Clopidogrel Bisulfate 75 MG Tablet PO (09:14)
[2024-09-21] MEDS: Nystatin Powder 15gm Bottle 1 APPLIC TOPICAL ×2 (09:14→20:41)
[2024-09-21] MEDS: Nitrofurantoin Macrocrystals 100 MG Capsule PO ×2 (09:16→20:43)
[2024-09-21] MEDS: traMADol 50 MG Tablet PO ×2 (09:18→20:39)
[2024-09-21] MEDS: MethylPREDNISolone DosePak 4 MG BOX PO ×2 (09:19→20:42)
[2024-09-21 10:58] VITALS: BMI 38.6
[2024-09-21] MEDS: Acetaminophen 500 MG Tablet 1000 MG PO (14:52)
--- NOTE | 2024-09-21 15:25 | CASEMGMT ---
Social Work SW spoke with dtr throughout the day on the most appropriate type of care for pt at [facility] - standard LTC or memory care. Dtr requested referral to [facility], as they have a memory care unit. DB discussed with IDT on pros and cons of memory care specifically for the pt. DB spoke with DB Castillo at [facility], Herminia at [facility] and Xena at [facility], about pros/cons of MC vs LTC. All in agreement with IDT suggestion to have the memory care unit as a possibility, and pt can admit to the unit that best meets pts needs and socialization level, knowing pt can move to the other unit if needed. [facility] then denied d/t not having a memory care. Dtr agreed to suggestion for the pt to admit to a SNF with the option for memory care. The pt can be moved in either unit as deemed appropriate. Encouraged dtr to tour each unit of the facility to determine which best meets pts needs and is most comfortable. Dtr agreed and has tours scheduled. [facility] and [facility] can accept. DB canceled referrals to [facility] and [facility]. SW will await dtr's final decision on SNF and set DC. Dtr appreciative of assistance. Leonie Giordano RIBBON HAND TAX COMPLIANCE AGENT
[2024-09-21] MEDS: QUEtiapine 25 MG Tablet 12.5 MG PO (20:40)
[2024-09-21] MEDS: Mirtazapine 15 MG Tablet 7.5 MG PO (20:41)
[2024-09-21] MEDS: Pantoprazole Sodium 40 MG Tablet PO (20:41)
[2024-09-21] MEDS: Atorvastatin Calcium 80 MG Tablet PO (20:45)
[2024-09-21 20:51] VITALS: BP 137/56; PULSE 48
[2024-09-22 01:42] VITALS: PULSE 58; RESP 18; O2SAT 98
[2024-09-22 05:57] LABS: Absolute Lymphocyte Count 3.58 X10^3/uL (0.83-4.51); Absolute Neutrophil Count 4.3 X10^3/uL (2.0-7.7); Basophil# 0.03 X10^3/uL; Basophil% 0.3 % (0-1); Eosinophil# 0.13 X10^3/uL; Eosinophils% 1.5 % (0-5); Lymphocyte # 3.58 X10^3/ul (0.83-4.51); Lymphocyte % 41.4 % (19-41); Mean Corp Hgb Conc 32.3 g/dL (32-36); Monocyte# 0.56 X10^3/uL; Monocyte% 6.5 % (0-10); NRBC Flagged by Analyzer 0 % (0-5); Neutrophil # 4.29 X10^3/uL (2.7-7.7); Neutrophil % 49.6 % (47-70); Platelet Count 247 K/mm3 (150-450); RBC Distribution Width CV 12.8 % (11.6-14.6); Red Blood Count 3.23 M/mm3 (4.2-5.4); White Blood Count 8.7 K/mm3 (4.4-11.0)
[2024-09-22 06:28] LABS: Anion Gap 10 (5-15); BUN 55 mg/dL (4-19); BUN/Creat Ratio 34.7 RATIO (10-20); Calcium,Total 9.5 mg/dL (7.6-11.0); Carbon Dioxide 23.3 mmol/L (21.0-32.0); Chloride 105 mmol/L (98-108); Creatinine, Serum 1.58 mg/dL (0.70-1.20); EST Glomerular Filtration Rate 34 (>60); Glucose 108 mg/dL (70-99); Potassium 4.8 mmol/L (3.3-5.1); Sodium Level 138 mmol/L (133-145)
[2024-09-22] MEDS: MethylPREDNISolone DosePak 4 MG BOX PO (08:39)
[2024-09-22] MEDS: Potassium Chloride Oral Tablet 20 MEQ PO (08:39)
[2024-09-22 08:40] VITALS: PULSE 60
[2024-09-22] MEDS: APIXABAN 5 MG TABLET PO ×2 (08:40→20:05)
[2024-09-22] MEDS: Clopidogrel Bisulfate 75 MG Tablet PO (08:40)
[2024-09-22] MEDS: Metoprolol Tartrate 25 MG Tablet 12.5 MG PO (08:40)
[2024-09-22] MEDS: Colchicine 0.6 MG TABLET PO (08:40)
[2024-09-22] MEDS: Ramipril 2.5 MG Capsule PO (08:40)
[2024-09-22] MEDS: Nitrofurantoin Macrocrystals 100 MG Capsule PO ×2 (08:40→20:07)
[2024-09-22] MEDS: Furosemide 40 MG Tablet PO (08:41)
[2024-09-22] MEDS: Escitalopram Oxalate 20 MG Tablet PO (08:41)
[2024-09-22] MEDS: Nystatin Powder 15gm Bottle 1 APPLIC TOPICAL ×2 (08:42→20:09)
[2024-09-22] MEDS: Arthritis Pain Compound 60 CLICK TUBE TOPICAL ×2 (08:44→20:05)
--- NOTE | 2024-09-22 12:47 | CASEMGMT ---
Social Work Dtr spoke with this worker and requested to set DC for 09/28 to accommodate her and sister's schedule. SW agreed. A SNF will be secured by that time, after dtr tours, she will notify this worker of FOC. Leonie Giordano MSW STRATEGIC DEBRIEFING SPECIALIST
[2024-09-22] MEDS: Atorvastatin Calcium 80 MG Tablet PO (20:05)
[2024-09-22 20:06] VITALS: BP 173/68; PULSE 56
[2024-09-22] MEDS: Pantoprazole Sodium 40 MG Tablet PO (20:07)
[2024-09-22] MEDS: Mirtazapine 15 MG Tablet 7.5 MG PO (20:07)
[2024-09-22] MEDS: QUEtiapine 25 MG Tablet 12.5 MG PO (20:08)
--- NOTE | 2024-09-23 08:44 | CASEMGMT ---
Social Work SW spoke with dtrKiara, and she has chosen [facility]. After the tour and speaking with the facility and this worker, pt will admit to standard LTC. Pt can be moved to memory care in the future, if needed. Family will transport pt and request DC 09/28. - DB updated both [facility] and [facility]. IDT updated. PASRR completed. Plan: DC 09/28 to [facility], intermediate, private pay, part B therapies Leonie Giordano RUBY RAILS DEVELOPER NITROGEN OPERATOR
[2024-09-23 08:51] VITALS: BP 127/52; PULSE 60; RESP 16; TEMP 36.1; O2SAT 94
--- NOTE | 2024-09-23 08:55 | NURSING ---
pt lowered to floor by PT, PT assisting pt to standing position from recliner chair and chair slid back with weight of pt legs and pt lowered to floor onto buttocks. no injury noted, skin intact w/out redness/bruising at this time. pt pleasant and cooperative. vitals stable. updated dr walker and daughter.
[2024-09-23 09:17] VITALS: PULSE 60
[2024-09-23] MEDS: Potassium Chloride Oral Tablet 20 MEQ PO (09:17)
[2024-09-23] MEDS: Ramipril 2.5 MG Capsule PO (09:17)
[2024-09-23] MEDS: Metoprolol Tartrate 25 MG Tablet 12.5 MG PO ×2 (09:17→19:50)
[2024-09-23] MEDS: Escitalopram Oxalate 20 MG Tablet PO (09:18)
[2024-09-23] MEDS: APIXABAN 5 MG TABLET PO ×2 (09:18→19:50)
[2024-09-23] MEDS: Nitrofurantoin Macrocrystals 100 MG Capsule PO ×2 (09:18→19:49)
[2024-09-23] MEDS: Clopidogrel Bisulfate 75 MG Tablet PO (09:18)
[2024-09-23] MEDS: Colchicine 0.6 MG TABLET PO (09:18)
[2024-09-23] MEDS: Furosemide 40 MG Tablet PO (09:18)
[2024-09-23] MEDS: Nystatin Powder 15gm Bottle 1 APPLIC TOPICAL ×2 (09:19→19:53)
[2024-09-23] MEDS: Arthritis Pain Compound 60 CLICK TUBE TOPICAL ×2 (09:19→19:53)
--- NOTE | 2024-09-23 15:08 | NURSING ---
pt woke up from a nap and confused, pt restless worried she missing her visit to a [facility]. Phone call to Kiara mitchel. pt spoke with daughter and pt much more relaxed and not worried about missing the visit. pt sitting in recliner chair. alarm in placed. call light in reach. denies any other needs after speaking with daughter
[2024-09-23 19:50] VITALS: PULSE 64
[2024-09-23] MEDS: Atorvastatin Calcium 80 MG Tablet PO (19:50)
[2024-09-23] MEDS: QUEtiapine 25 MG Tablet 12.5 MG PO (19:51)
[2024-09-23] MEDS: Mirtazapine 15 MG Tablet 7.5 MG PO (19:52)
[2024-09-23] MEDS: Pantoprazole Sodium 40 MG Tablet PO (19:52)
--- NOTE | 2024-09-23 20:56 | DS.PCM_ITS ---
Providers Date of Admission: 09/07/24 Primary Care Physician: Dr. Evangelist Henriquez, Consultations 09/14/24 07:13 Consult: Pain Management Routine Consulting Provider: Ezequiel Sahu Reason for Consult: Knee pain, back pain. EMERGENT Consult: No MD Notified: Yes Date Notified: 09/14/24 Time Notified: 10:10 Method of Notification: Verbal Reason For Visit: AMS VISUAL HALLUCINATIONS Diagnosis Discharge Diagnosis (1) Osteoarthritis of right knee: Status: Inactive Code(s): M17.11 - Unilateral primary osteoarthritis, right knee Qualifiers: Osteoarthritis type: primary Qualified Code(s): M17.11 - Unilateral primary osteoarthritis, right knee (2) Spondylosis of lumbar joint: Status: Acute Code(s): M47.816 - Spondylosis without myelopathy or radiculopathy, lumbar region Plan 74 year old female with below past medical history hospitalized for visual hallucinations, encephalopathy related to Lewy Body Dementia, admitted to TCU with debility, here for rehabilitation, strengthening, prior to discharge home with daughter. * Debility - PT/OT. * Cognition - ST. * Pain - Tylenol 1000mg q6 prn, Tramadol 50mg bid prn. * Bowel - Miralax 17gm daily, senna/colace 1 tablet bid, Magnesium citrate 300mL po x 1 prn. * Adult immunization - Administer pneumonia vaccine, covid vaccine, flu vaccine as appropriate. * DVT prophylaxis - Eliquis. * Atrial fibrillation - Metoprolol tartrate 12.5mg bid, Eliquis 5mg bid. * Hyperlipidemia - Atorvastatin 80mg qhs. * Dry Eyes - Artificial tears 2gtt ou q1 prn. * Coronary artery disease s/p stents - Metoprolol 12.5mg bid, Ramipril 2.5mg daily, Plavix 75mg daily, Eliquis 5mg bid. * Vitamin D deficiency - D 1.25mg qweek,. * Depression - Lexapro 20mg daily, stable chronic mcc use, GDR not recommended. * Chronic HFrEF - Metoprolol 12.5mg bid, Ramipril 2.5mg daily, Furosemide 40mg daily. * Insomnia - Mirtazapine 7.5mg qhs, stable chronic mcc use, GDR not recommended. * Tinea Corporis - Nystatin powder topical bid. * GERD - Pantoprazole 20mg qhs. * Hypokalemia - KCL 20meq daily. * Lewy Body dementia with visual hallucinations - Seroquel 12.5mg qhs, stable chronic mcc use, GDR not recommended. Medications at Discharge Home Medications cholecalciferol (vitamin D3) 1,250 mcg (50,000 unit) capsule 1 cap PO SA vitamin 07/10/19 escitalopram oxalate 20 mg tablet (Lexapro) 20 mg PO DAILY DEPRESSION 05/15/21 apixaban 5 mg tablet (Eliquis) 5 mg PO BID Anticoagulant #180 tabs 02/16/24 ramipril 2.5 mg capsule (Altace) 2.5 mg PO DAILY blood pressure #90 caps 07/21/24 acetaminophen 500 mg tablet 1,000 mg (2 x 500 mg) PO Q6H PRN Pain Score 1-5 #0 tabs 08/17/24 atorvastatin 80 mg tablet 80 mg PO QHS cholesterol 30 days #30 tabs 08/17/24 clopidogrel 75 mg tablet 75 mg PO DAILY anti-platelet 30 days #30 tabs 08/17/24 furosemide 40 mg tablet 40 mg PO DAILY fluid pill 30 days #30 tabs 08/17/24 mirtazapine 15 mg tablet 7.5 mg (1/2 x 15 mg) PO QHS mood 30 days #15 tabs 08/17/24 quetiapine 25 mg tablet 12.5 mg (1/2 x 25 mg) PO QPM hallucinations 30 days #15 tabs 08/17/24 metoprolol tartrate 25 mg tablet 12.5 mg (1/2 x 25 mg) PO BID BP/pulse #60 tabs 08/25/24 potassium chloride 20 mEq tablet,extended release 20 meq PO QDAY supplement 08/25/24 Arthritis Pain Compound 2 click topical BID ##0 09/23/24 nystatin 100,000 unit/gram topical powder (Nyamyc) 1 applic topical BID #0 grams 09/23/24 pantoprazole 40 mg tablet,delayed release 40 mg PO QHS #0 tabs 09/23/24 sennosides 8.6 mg-docusate sodium 50 mg tablet (Stimulant Laxative Plus) 1 tab PO BID #0 tabs 09/23/24 tramadol 50 mg tablet 50 mg PO Q6H PRN PRN Pain Score 6-10 Or Pre Pt/Ot 3 days #12 tabs 09/23/24 Hospital Course Operations None Procedures None Summary of Care Provided Minutes Spent on Discharge: 35 Hospital Course: 74 year old female with below past medical history hospitalized for visual hallucinations, encephalopathy related to Lewy Body Dementia, admitted to TCU with debility, here for rehabilitation, strengthening, prior to discharge home
--- NOTE | 2024-09-23 20:56 | PCM.DC.SUM ---
Providers Date of Admission: 09/07/24 Primary Care Physician: Dr. Evangelist Henriquez, Consultations 09/14/24 07:13 Consult: Pain Management Routine Consulting Provider: Ezequiel Sahu Reason for Consult: Knee pain, back pain. EMERGENT Consult: No MD Notified: Yes Date Notified: 09/14/24 Time Notified: 10:10 Method of Notification: Verbal Reason For Visit: AMS VISUAL HALLUCINATIONS Diagnosis Discharge Diagnosis (1) Osteoarthritis of right knee: Status: Inactive Code(s): M17.11 - Unilateral primary osteoarthritis, right knee Qualifiers: Osteoarthritis type: primary Qualified Code(s): M17.11 - Unilateral primary osteoarthritis, right knee (2) Spondylosis of lumbar joint: Status: Acute Code(s): M47.816 - Spondylosis without myelopathy or radiculopathy, lumbar region Plan 74 year old female with below past medical history hospitalized for visual hallucinations, encephalopathy related to Lewy Body Dementia, admitted to TCU with debility, here for rehabilitation, strengthening, prior to discharge home with daughter. Debility - PT/OT. Cognition - ST. Pain - Tylenol 1000mg q6 prn, Tramadol 50mg bid prn. Bowel - Miralax 17gm daily, senna/colace 1 tablet bid, Magnesium citrate 300mL po x 1 prn. Adult immunization - Administer pneumonia vaccine, covid vaccine, flu vaccine as appropriate. DVT prophylaxis - Eliquis. Atrial fibrillation - Metoprolol tartrate 12.5mg bid, Eliquis 5mg bid. Hyperlipidemia - Atorvastatin 80mg qhs. Dry Eyes - Artificial tears 2gtt ou q1 prn. Coronary artery disease s/p stents - Metoprolol 12.5mg bid, Ramipril 2.5mg daily, Plavix 75mg daily, Eliquis 5mg bid. Vitamin D deficiency - D 1.25mg qweek,. Depression - Lexapro 20mg daily, stable chronic buttermaker continuous churn use, GDR not recommended. Chronic HFrEF - Metoprolol 12.5mg bid, Ramipril 2.5mg daily, Furosemide 40mg daily. Insomnia - Mirtazapine 7.5mg qhs, stable chronic longterm use, GDR not recommended. Tinea Corporis - Nystatin powder topical bid. GERD - Pantoprazole 20mg qhs. Hypokalemia - KCL 20meq daily. Lewy Body dementia with visual hallucinations - Seroquel 12.5mg qhs, stable chronic longterm use, GDR not recommended. Medications at Discharge Home Medications cholecalciferol (vitamin D3) 1,250 mcg (50,000 unit) capsule 1 cap PO SA vitamin 07/10/19 escitalopram oxalate 20 mg tablet (Lexapro) 20 mg PO DAILY DEPRESSION 05/15/21 apixaban 5 mg tablet (Eliquis) 5 mg PO BID Anticoagulant #180 tabs 02/16/24 ramipril 2.5 mg capsule (Altace) 2.5 mg PO DAILY blood pressure #90 caps 07/21/24 acetaminophen 500 mg tablet 1,000 mg (2 x 500 mg) PO Q6H PRN Pain Score 1-5 #0 tabs 08/17/24 atorvastatin 80 mg tablet 80 mg PO QHS cholesterol 30 days #30 tabs 08/17/24 clopidogrel 75 mg tablet 75 mg PO DAILY anti-platelet 30 days #30 tabs 08/17/24 furosemide 40 mg tablet 40 mg PO DAILY fluid pill 30 days #30 tabs 08/17/24 mirtazapine 15 mg tablet 7.5 mg (1/2 x 15 mg) PO QHS mood 30 days #15 tabs 08/17/24 quetiapine 25 mg tablet 12.5 mg (1/2 x 25 mg) PO QPM hallucinations 30 days #15 tabs 08/17/24 metoprolol tartrate 25 mg tablet 12.5 mg (1/2 x 25 mg) PO BID BP/pulse #60 tabs 08/25/24 potassium chloride 20 mEq tablet,extended release 20 meq PO QDAY supplement 08/25/24 Arthritis Pain Compound 2 click topical BID ##0 09/23/24 nystatin 100,000 unit/gram topical powder (Nyamyc) 1 applic topical BID #0 grams 09/23/24 pantoprazole 40 mg tablet,delayed release 40 mg PO QHS #0 tabs 09/23/24 sennosides 8.6 mg-docusate sodium 50 mg tablet (Stimulant Laxative Plus) 1 tab PO BID #0 tabs 09/23/24 tramadol 50 mg tablet 50 mg PO Q6H PRN PRN Pain Score 6-10 Or Pre Pt/Ot 3 days #12 tabs 09/23/24 Hospital Course Operations None Procedures None Summary of Care Provided Minutes Spent on Discharge: 35 Hospital Course: 74 year old female with below past medical history hospitalized for visual hallucinations, encephalopathy related to Lewy Body Dementia, admitted to TCU with debility, here for rehabilitation, strengthening, prior to discharge home with daughter. Discharge 09/28/2024 to [facility], [facility], part B therapies. Physical Exam Const alert General Appearance: cooperative HEENT normocephalic Eyes PERRL and EOMs intact bilaterally Neck supple, no JVD and no carotid bruits Resp normal respiratory effort, normal air movement and clear to auscultation bilaterally Cardio regular rate and regular rhythm GI normal to inspection, nondistended, normoactive bowel sounds, non-tender and non-distended Extremity normal capillary refill General Extremity: Negative for edema Skin no rashes or lesions noted General Skin Exam: no breakdown Psych affect normal Appearance: appropriate Weight / BMI Weight Weight: 95.753 kg Body Mass Index (BMI) 38.6 ABG / Lab / Microbiology Data 09/22/24 05:39 09/22/24 05:39 Microbiology: Microbiology 09/20/24 21:48 Urine, Clean Catch Urine Culture - Final Mixed Gram Positive Organisms 09/13/24 11:40 Urine, Catheterized Urine Culture - Final Culture exhibits no growth. D/C Instructions Discharge Diet: No restrictions Discharge Activity: Return to Normal Activity, May Shower and Use Walker Weight Bearing Status: Weight bearing as tolerated Call your doctor if you observe: Fever of 101 or Higher, Inability to urinate, Inability to have a bowel movement, Shortness of breath, Dizziness, Fainting spells, Swelling in the ankles, Chest pain and Uncontrolled pain DC O2, CPAP, BIPAP Needs Home O2 Discharge instructions: No Additional Instructions: Discharge 09/28/2024 to [facility], private pay, part B therapies. Meaningful Use Info Meaningful Use Meaningful Use Diagnoses (Choose all that apply): None applicable Ischemic Stroke Statin Dosing Therapy Reference: STATIN DOSE THERAPY REFERENCE: * Patients > 75 years receive moderate or high dose statin therapy. * Patients 75 years or YOUNGER should receive HIGH intensity statin dose unless contraindicated. You will be required to document reason for non-treatment if statin daily dose does not meet guidelines. HIGH DOSE STATIN THERAPY DAILY Atorvastatin > than or = to 40 mg Rosuvastatin > than or = to 20 mg Amlodipine + Atorvastatin > than or = to 2.5/40 mg Ezetimibe + Simvastatin 10/80 mg Simvastatin 80mg Discharge Plan Admission Admit Date/Time: 09/07/24 14:25 Primary Reason for Your Visit: Debility. Attending Provider: Kirk Daniel Chi Primary Care Provider: Evangelist Henriquez Consulting Providers: Miles Valdes Instructions Additional Instructions / Restrictions: Discharge 09/28/2024 to [facility], private pay, part B therapies. Discharge Orders/Prescriptions Prescriptions: New Arthritis Pain Compound 2 click topical BID Qty: 0 0RF sennosides-docusate sodium [Stimulant Laxative Plus] 8.6-50 mg Tablet 1 tab PO BID Qty: 0 0RF tramadol 50 mg Tablet 50 mg PO Q6H PRN PRN (Reason: Pain Score 6-10 Or Pre Pt/Ot) 3 Days Qty: 12 0RF pantoprazole 40 mg Tablet,Delayed Release (Dr/Ec) 40 mg PO QHS Qty: 0 0RF nystatin [Nyamyc] 100,000 unit/gram Powder 1 applic topical BID Qty: 0 0RF Protocol: *Topical Application Instructions APPLICATION INSTRUCTIONS: Apply to Abdominal folds and groin Continued cholecalciferol (vitamin D3) 1,250 MCG capsule 1 cap PO SA Patient Comments: TAKE 1 CAPSULE BY MOUTH ONCE A WEEK escitalopram oxalate [Lexapro] 20 mg tablet 20 mg PO DAILY quetiapine 25 mg Tablet 12.5 mg PO QPM 30 Days Qty: 15 0RF furosemide 40 mg Tablet 40 mg PO DAILY 30 Days Qty: 30 0RF atorvastatin 80 mg Tablet 80 mg PO QHS 30 Days Qty: 30 0RF clopidogrel 75 mg Tablet 75 mg PO DAILY 30 Days Qty: 30 0RF acetaminophen 500 mg Tablet 1,000 mg PO Q6H PRN (Reason: Pain Score 1-5) Qty: 0 0RF mirtazapine 15 mg Tablet 7.5 mg PO QHS 30 Days Qty: 15 0RF Eliquis 5 mg tablet 5 mg PO BID Qty: 180 3RF ramipril [Altace] 2.5 mg capsule 2.5 mg PO DAILY Qty: 90 3RF metoprolol tartrate 25 mg tablet 12.5 mg PO BID Qty: 60 11RF potassium chloride 20 mEq tablet extended release 20 meq PO QDAY Discontinued omeprazole 20 mg capsule,delayed release(DR/EC) 20 mg PO QHS tramadol 50 mg tablet 50 mg PO BID PRN PRN (Reason: pain, severe) Referrals / Follow Up: [facility] [Other] (Follow-up with [facility] ) Evangelist Henriquez DO [Primary Care Provider] - Miles Valdes MD [Med Staff - Active Staff] - Disposition Disposition (needs filled in before D/C Order can be placed): NonSkilled NH/Intermed Care
--- NOTE | 2024-09-23 21:02 | TREXTCAR_ITS ---
Diet Diet Order/Speech Therapy: 09/07/24 15:13 Diet: Cardiac - Heart Healthy Dietary Modifications:: Fat Restricted Routine Orders/Code Status Code Status: DNRCC-A (No intubation. ) DC O2, CPAP, BIPAP needs Home O2 Discharge instructions: No Wound(s) Right Posterior Knee: Wound Type: Open area Dressing Change: Dry Sterile Dressing Therapies Weight Bearing: Weight bearing as tolerated Extremity Affected:: Bilateral Lower Physical Therapy: Eval and Treat Occupational Therapy: Eval and Treat Speech Therapy: Eval and Treat Problem/Diagnosis (1) Osteoarthritis of right knee: Status: Inactive Code(s): M17.11 - Unilateral primary osteoarthritis, right knee (2) Spondylosis of lumbar joint: Status: Acute Code(s): M47.816 - Spondylosis without myelopathy or radiculopathy, lumbar region Plan 74 year old female with below past medical history hospitalized for visual hallucinations, encephalopathy related to Lewy Body Dementia, admitted to TCU with debility, here for rehabilitation, strengthening, prior to discharge home with daughter. * Debility - PT/OT. * Cognition - ST. * Pain - Tylenol 1000mg q6 prn, Tramadol 50mg bid prn. * Bowel - Miralax 17gm daily, senna/colace 1 tablet bid, Magnesium citrate 300mL po x 1 prn. * Adult immunization - Administer pneumonia vaccine, covid vaccine, flu vaccine as appropriate. * DVT prophylaxis - Eliquis. * Atrial fibrillation - Metoprolol tartrate 12.5mg bid, Eliquis 5mg bid. * Hyperlipidemia - Atorvastatin 80mg qhs. * Dry Eyes - Artificial tears 2gtt ou q1 prn. * Coronary artery disease s/p stents - Metoprolol 12.5mg bid, Ramipril 2.5mg daily, Plavix 75mg daily, Eliquis 5mg bid. * Vitamin D deficiency - D 1.25mg qweek,. * Depression - Lexapro 20mg daily, stable chronic fdc use, GDR not recommended. * Chronic HFrEF - Metoprolol 12.5mg bid, Ramipril 2.5mg daily, Furosemide 40mg daily. * Insomnia - Mirtazapine 7.5mg qhs, stable chronic long term acute care registered nurse use, GDR not recomm ended. * Tinea Corporis - Nystatin powder topical bid. * GERD - Pantoprazole 20mg qhs. * Hypokalemia - KCL 20meq daily. * Lewy Body dementia with visual hallucinations - Seroquel 12.5mg qhs, stable chronic long term acute care registered nurse use, GDR not recommended. Allergies/Procedures Done in Hospital Allergies acetaminophen (From Vicodin) Allergy (Intermediate, Verified 08/25/24 11:03) Hives fluoxetine (From Prozac) Allergy (Intermediate, Verified 08/25/24 11:03) Nausea hydrocodone (From Vicodin) Allergy (Intermediate, Verified 08/25/24 11:03) Hives promethazine (From Phenergan) Allergy (Intermediate, Verified 08/25/24 11:03) Itching sulfamethoxazole (From Bactrim) Adverse Reaction (Severe, Verified 08/25/24 11:03) renal failure hyperkalemia trimethoprim (From Bactrim) Adverse Reaction (Severe, Verified 08/25/24 11:03) renal failure hyperkalemia Procedures: None Type of Care/Length of Stay Estimated LOS: More Than 30 Days Type of Care Needed: Intermediate Rehab Potential: Fair Prognosis: Fair Additional Orders/Day of Discharge Additional Orders: part B therapies Day of Discharge: 09/28/24 Dietary and Speech Recommendations Dietitian Recommendations/Changes: Continue Cardiac/ Fat restricted diet as ordered Discharge Plan Admission Admit Date/Time: 09/07/24 14:25 Primary Reason for Your Visit: Debility. Attending Provider: Kirk Daniel Chi Primary Care Provider: Evangelist Henriquez Consulting Providers: Miles Valdes Instructions Additional Instructions / Restrictions: Discharge 09/28/2024 to [facility], private pay, part B t herapies. Discharge Orders/Prescriptions Prescriptions: New Arthritis Pain Compound 2 click topical BID Qty: 0 0RF sennosides-docusate sodium [Stimulant Laxative Plus] 8.6-50 mg Tablet 1 tab PO BID Qty: 0 0RF tramadol 50 mg Tablet 50 mg PO Q6H PRN PRN (Reason: Pain Score 6-10 Or Pre Pt/Ot) 3 Days Qty: 12 0RF pantoprazole 40 mg Tablet,Delayed Release (Dr/Ec) 40 mg PO QHS Qty: 0 0RF nystatin [Nyamyc] 100,000 unit/gram Powder 1 applic topical BID Qty: 0 0RF Protocol: *Topical Application Instructions APPLICATION INSTRUCTIONS: Apply to Abdominal folds and groin Continued cholecalciferol (vitamin D3) 1,250 MCG capsule 1 cap PO SA Patient Comments: TAKE 1 CAPSULE BY MOUTH ONCE A WEEK escitalopram oxalate [Lexapro] 20 mg tablet 20 mg PO DAILY quetiapine 25 mg Tablet 12.5 mg PO QPM 30 Days Qty: 15 0RF furosemide 40 mg Tablet 40 mg PO DAILY 30 Days Qty: 30 0RF atorvastatin 80 mg Tablet 80 mg PO QHS 30 Days Qty: 30 0RF clopidogrel 75 mg Tablet 75 mg PO DAILY 30 Days Qty: 30 0RF acetaminophen 500 mg Tablet 1,000 mg PO Q6H PRN (Reason: Pain Score 1-5) Qty: 0 0RF mirtazapine 15 mg Tablet 7.5 mg PO QHS 30 Days Qty: 15 0RF Eliquis 5 mg tablet 5 mg PO BID Qty: 180 3RF ramipril [Altace] 2.5 mg capsule 2.5 mg PO DAILY Qty: 90 3RF metoprolol tartrate 25 mg tablet 12.5 mg PO BID Qty: 60 11RF potassium chloride 20 mEq tablet extended release 20 meq PO QDAY Discontinued omeprazole 20 mg capsule,delayed release(DR/EC) 20 mg PO QHS tramadol 50 mg tablet 50 mg PO BID PRN PRN (Reason: pain, severe) Referrals / Follow Up: [facility] [Other] (Follow-up with [facility] ) Evangelist Henriquez DO [Primary Care Provider] - Miles Vadles MD [Med Staff - Active Staff] - Disposition Disposition (needs filled in before D/C Order can be placed): NonSkilled NH /Intermed Care (1) Osteoarthritis of right knee Qualifiers: Osteoarthritis type: primary Qualified Code(s): M17.11 - Unilateral primary osteoarthritis, right knee
[2024-09-24] MEDS: Arthritis Pain Compound 60 CLICK TUBE TOPICAL ×2 (08:20→21:45)
[2024-09-24 08:21] VITALS: PULSE 60
[2024-09-24] MEDS: Metoprolol Tartrate 25 MG Tablet 12.5 MG PO ×2 (08:21→21:38)
[2024-09-24] MEDS: APIXABAN 5 MG TABLET PO ×2 (08:21→21:35)
[2024-09-24] MEDS: Potassium Chloride Oral Tablet 20 MEQ PO (08:21)
[2024-09-24] MEDS: Clopidogrel Bisulfate 75 MG Tablet PO (08:21)
[2024-09-24] MEDS: Ramipril 2.5 MG Capsule PO (08:24)
[2024-09-24] MEDS: Furosemide 40 MG Tablet PO (08:24)
[2024-09-24] MEDS: Escitalopram Oxalate 20 MG Tablet PO (08:25)
[2024-09-24] MEDS: Nystatin Powder 15gm Bottle 1 APPLIC TOPICAL ×2 (08:25→21:44)
[2024-09-24 08:36] VITALS: BP 136/61; PULSE 60; RESP 16; TEMP 36.8
[2024-09-24 10:00] VITALS: PULSE 55; RESP 18; O2SAT 94
[2024-09-24] MEDS: Acetaminophen 500 MG Tablet 1000 MG PO (21:32)
[2024-09-24] MEDS: traMADol 50 MG Tablet PO (21:32)
[2024-09-24] MEDS: Atorvastatin Calcium 80 MG Tablet PO (21:35)
[2024-09-24 21:38] VITALS: PULSE 66
[2024-09-24] MEDS: QUEtiapine 25 MG Tablet 12.5 MG PO (21:40)
[2024-09-24] MEDS: Mirtazapine 15 MG Tablet 7.5 MG PO (21:41)
[2024-09-24] MEDS: Pantoprazole Sodium 40 MG Tablet PO (21:42)
[2024-09-25 09:24] VITALS: BP 114/60; PULSE 52; RESP 17; TEMP 36.2; O2SAT 94
[2024-09-25] MEDS: Ramipril 2.5 MG Capsule PO (09:30)
[2024-09-25] MEDS: APIXABAN 5 MG TABLET PO ×3 (09:30→20:27)
[2024-09-25] MEDS: Ergocalciferol 1.25 MG (50, 000 UNIT) Capsule PO (09:30)
[2024-09-25] MEDS: Potassium Chloride Oral Tablet 20 MEQ PO (09:30)
[2024-09-25] MEDS: Furosemide 40 MG Tablet PO (09:30)
[2024-09-25] MEDS: Clopidogrel Bisulfate 75 MG Tablet PO (09:30)
[2024-09-25 09:31] VITALS: PULSE 56
[2024-09-25] MEDS: Metoprolol Tartrate 25 MG Tablet 12.5 MG PO ×2 (09:31→20:21)
[2024-09-25] MEDS: Escitalopram Oxalate 20 MG Tablet PO (09:32)
[2024-09-25] MEDS: Arthritis Pain Compound 60 CLICK TUBE TOPICAL ×2 (09:32→20:31)
[2024-09-25] MEDS: Nystatin Powder 15gm Bottle 1 APPLIC TOPICAL ×2 (09:33→20:31)
[2024-09-25 20:21] VITALS: PULSE 64
[2024-09-25] MEDS: Pantoprazole Sodium 40 MG Tablet PO (20:21)
[2024-09-25] MEDS: QUEtiapine 25 MG Tablet 12.5 MG PO (20:22)
[2024-09-25] MEDS: Senna/Docusate Sodium 1 Tablet PO (20:22)
[2024-09-25] MEDS: Atorvastatin Calcium 80 MG Tablet PO (20:23)
[2024-09-25] MEDS: Mirtazapine 15 MG Tablet 7.5 MG PO (20:24)
[2024-09-25] MEDS: traMADol 50 MG Tablet PO (20:26)
[2024-09-25] MEDS: Acetaminophen 500 MG Tablet 1000 MG PO (20:27)
[2024-09-26] MEDS: Potassium Chloride Oral Tablet 20 MEQ PO (09:01)
[2024-09-26 09:02] VITALS: PULSE 55
[2024-09-26] MEDS: Clopidogrel Bisulfate 75 MG Tablet PO (09:02)
[2024-09-26] MEDS: Furosemide 40 MG Tablet PO (09:02)
[2024-09-26] MEDS: Metoprolol Tartrate 25 MG Tablet 12.5 MG PO ×2 (09:02→20:52)
[2024-09-26] MEDS: Senna/Docusate Sodium 1 Tablet PO (09:02)
[2024-09-26] MEDS: Escitalopram Oxalate 20 MG Tablet PO (09:02)
[2024-09-26] MEDS: Ramipril 2.5 MG Capsule PO (09:02)
[2024-09-26] MEDS: Nystatin Powder 15gm Bottle 1 APPLIC TOPICAL ×2 (09:03→20:59)
[2024-09-26] MEDS: Arthritis Pain Compound 60 CLICK TUBE TOPICAL ×2 (09:04→20:58)
[2024-09-26 09:14] VITALS: BP 111/53; PULSE 55; RESP 18; TEMP 36.3; O2SAT 96
[2024-09-26] MEDS: traMADol 50 MG Tablet PO (20:49)
[2024-09-26] MEDS: Acetaminophen 500 MG Tablet 1000 MG PO (20:49)
[2024-09-26] MEDS: APIXABAN 5 MG TABLET PO (20:50)
[2024-09-26] MEDS: QUEtiapine 25 MG Tablet 12.5 MG PO (20:50)
[2024-09-26] MEDS: Pantoprazole Sodium 40 MG Tablet PO (20:51)
[2024-09-26] MEDS: Mirtazapine 15 MG Tablet 7.5 MG PO (20:51)
[2024-09-26 20:52] VITALS: PULSE 62
[2024-09-26] MEDS: Atorvastatin Calcium 80 MG Tablet PO (20:56)
[2024-09-27 09:04] VITALS: BP 124/61; PULSE 63; RESP 16; TEMP 36.1; O2SAT 100
[2024-09-27] MEDS: Potassium Chloride Oral Tablet 20 MEQ PO (09:07)
[2024-09-27] MEDS: Ramipril 2.5 MG Capsule PO (09:07)
[2024-09-27] MEDS: APIXABAN 5 MG TABLET PO ×2 (09:07→19:57)
[2024-09-27] MEDS: Furosemide 40 MG Tablet PO (09:07)
[2024-09-27 09:08] VITALS: PULSE 63
[2024-09-27] MEDS: Arthritis Pain Compound 60 CLICK TUBE TOPICAL ×2 (09:08→20:08)
[2024-09-27] MEDS: Escitalopram Oxalate 20 MG Tablet PO (09:08)
[2024-09-27] MEDS: Clopidogrel Bisulfate 75 MG Tablet PO (09:08)
[2024-09-27] MEDS: Metoprolol Tartrate 25 MG Tablet 12.5 MG PO (09:08)
[2024-09-27] MEDS: Nystatin Powder 15gm Bottle 1 APPLIC TOPICAL ×2 (09:10→20:07)
[2024-09-27] MEDS: QUEtiapine 25 MG Tablet 12.5 MG PO (19:57)
[2024-09-27] MEDS: traMADol 50 MG Tablet PO (19:57)
[2024-09-27] MEDS: Pantoprazole Sodium 40 MG Tablet PO (19:57)
[2024-09-27] MEDS: Mirtazapine 15 MG Tablet 7.5 MG PO (19:58)
[2024-09-27] MEDS: Atorvastatin Calcium 80 MG Tablet PO (20:00)
[2024-09-27 20:09] VITALS: BP 133/55; PULSE 49
[2024-09-27 20:10] VITALS: PULSE 49; RESP 16; O2SAT 99
--- NOTE | 2024-09-28 02:03 | NURSING ---
Patient very anxious about moving to new place. Thought that her daughters had stayed and were spending the night here with her. Redirected. Up in chair, having some decaf coffee at this time. Will continue to monitor.
[2024-09-28 06:35] VITALS: PULSE 48; RESP 16; O2SAT 98
[2024-09-28 08:21] VITALS: BP 128/65; PULSE 61
[2024-09-28] MEDS: Metoprolol Tartrate 25 MG Tablet 12.5 MG PO (08:21)
[2024-09-28] MEDS: Potassium Chloride Oral Tablet 20 MEQ PO (08:22)
[2024-09-28] MEDS: APIXABAN 5 MG TABLET PO (08:22)
[2024-09-28] MEDS: Escitalopram Oxalate 20 MG Tablet PO (08:22)
[2024-09-28] MEDS: Clopidogrel Bisulfate 75 MG Tablet PO (08:22)
[2024-09-28] MEDS: Furosemide 40 MG Tablet PO (08:22)
[2024-09-28] MEDS: Ramipril 2.5 MG Capsule PO (08:22)
[2024-09-28] MEDS: Arthritis Pain Compound 60 CLICK TUBE TOPICAL (08:23)
[2024-09-28] MEDS: Nystatin Powder 15gm Bottle 1 APPLIC TOPICAL (08:24)
--- NOTE | 2024-09-28 11:40 | CASEMGMT ---
Social Work SW completed BIMS (04/16) and PHQ-2 () for MDS assessment. Leonie Giordano SALESPERSON [employer]
--- NOTE | 2024-09-28 12:02 | NURSING ---
Called Report to Festus Ch Spoke with [facility].
[2024-09-28 13:05] VITALS: BP 138/62; PULSE 57; RESP 16; TEMP 36.4; O2SAT 100
== END 2024-09-28 13:05 | disposition intermediate care facility (04) | DRG 57 ==
PROVIDERS: Admitting Provider Family Medicine Geriatric Medicine; PCP Student in an Organized Health Care Education/Training Program; Referring Provider Family Medicine Geriatric Medicine; Visit Provider Family Medicine Geriatric Medicine
DX: G31.83 Neurocognitive disorder with Lewy bodies (principal); F02.82 Dementia in other diseases classified elsewhere, unspecified severity, with psychotic disturbance; I13.0 Hypertensive heart and chronic kidney disease with heart failure and stage 1 through stage 4 chronic kidney disease, or unspecified chronic kidney disease; I50.22 Chronic systolic (congestive) heart failure; N39.0 Urinary tract infection, site not specified; E55.9 Vitamin D deficiency, unspecified; B35.4 Tinea corporis; E66.9 Obesity, unspecified; I25.10 Atherosclerotic heart disease of native coronary artery without angina pectoris; I48.0 Paroxysmal atrial fibrillation; N18.32 Chronic kidney disease, stage 3b; J44.9 Chronic obstructive pulmonary disease, unspecified; M06.9 Rheumatoid arthritis, unspecified; F32.A Depression, unspecified; E78.00 Pure hypercholesterolemia, unspecified; E87.6 Hypokalemia; K21.9 Gastro-esophageal reflux disease without esophagitis; M47.816 Spondylosis without myelopathy or radiculopathy, lumbar region; M17.11 Unilateral primary osteoarthritis, right knee; M10.9 Gout, unspecified; Z68.39 Body mass index [BMI] 39.0-39.9, adult; Z79.02 Long term (current) use of antithrombotics/antiplatelets; G47.00 Insomnia, unspecified; Z95.5 Presence of coronary angioplasty implant and graft; Z79.01 Long term (current) use of anticoagulants; Z79.899 Other long term (current) drug therapy; Z95.1 Presence of aortocoronary bypass graft
CPT/HCPCS: 36415; 80048; 81001; 85025; 87086; 87088; 92508; 92523; 97110; 97129; 97130; 97162; 97166; 97530; 97535; 97802

== ENCOUNTER → 2024-09-30 | Outpatient (REF) | payer MEDICARE, OTHER, SELFPAY ==
[2024-09-30 08:43] LABS: Absolute Lymphocyte Count 3.95 X10^3/uL (0.83-4.51); Absolute Neutrophil Count 3.3 X10^3/uL (2.0-7.7); Basophil# 0.04 X10^3/uL; Basophil% 0.5 % (0-1); Eosinophil# 0.16 X10^3/uL; Hematocrit 28.5 % (37-47); Hemoglobin 9.2 g/dL (12.0-15.0); Lymphocyte # 3.95 X10^3/ul (0.83-4.51); Lymphocyte % 49.2 % (19-41); Mean Corp Hgb Conc 32.3 g/dL (32-36); Mean Corpuscular Hgb 30.8 pg (27.0-32.0); Mean Corpuscular Volume 95.3 fL (81-99); Mean Platelet Vol. 11.6 fl (6.2-12.0); Monocyte# 0.58 X10^3/uL; Monocyte% 7.2 % (0-10); NRBC Flagged by Analyzer 0 % (0-5); Neutrophil # 3.28 X10^3/uL (2.7-7.7); Neutrophil % 40.9 % (47-70); Platelet Count 149 K/mm3 (150-450); RBC Distribution Width CV 13.5 % (11.6-14.6); RBC Distribution Width SD 46.6 fl (35.1-43.9); Red Blood Count 2.99 M/mm3 (4.2-5.4)
[2024-09-30 09:09] LABS: ALB/GLOB Ratio 1.1 RATIO (0.9-2.4); AST(SGOT) 14 U/L (<=31); Alanine Aminotransfer ALT/SGPT 10 U/L (<=34); Albumin, Serum 3.1 g/dL (3.4-4.8); Alkaline Phosphatase 75 U/L (35-104); Anion Gap 11 (5-15); BUN 69 mg/dL (4-19); BUN/Creat Ratio 27.5 RATIO (10-20); Calcium,Total 9.1 mg/dL (7.6-11.0); Carbon Dioxide 18.2 mmol/L (21.0-32.0); Chloride 109 mmol/L (98-108); Cholesterol 98 mg/dL (<=200); EST Glomerular Filtration Rate 20 (>60); Globulin 2.9 g/dL (2.2-4.2); Glucose 104 mg/dL (70-99); High Density Lipoprotein 39 mg/dL; Low Density Lipoprotein Calc. 37 mg/dL; Potassium 4.2 mmol/L (3.3-5.1); Protein, Total 5.9 g/dL (5.9-8.4); Sodium Level 138 mmol/L (133-145); Total Bilirubin 0.19 mg/dL (0.00-1.30); Triglycerides 113 mg/dL; Very Low Density Lipoprotein 23 mg/dL (5-40); Vitamin D,25 Hydroxy 75.2 ng/mL (30-100); cholesterol:hdl ratio screen 2.55
== END ==
LOC: OLS.WHLEAS 05:00
PROVIDERS: PCP Student in an Organized Health Care Education/Training Program; Visit Provider Internal Medicine
DX: I12.9 Hypertensive chronic kidney disease with stage 1 through stage 4 chronic kidney disease, or unspecified chronic kidney disease (principal); N18.9 Chronic kidney disease, unspecified
CPT/HCPCS: 36415; 80053; 80061; 82248; 82306; 84443; 85025

== ENCOUNTER → 2024-10-07 04:00 | Outpatient (REF) | payer MEDICARE, OTHER, SELFPAY ==
[2024-10-07 08:26] LABS: Absolute Lymphocyte Count 3.44 X10^3/uL (0.83-4.51); Absolute Neutrophil Count 5.4 X10^3/uL (2.0-7.7); Basophil# 0.03 X10^3/uL; Basophil% 0.3 % (0-1); Eosinophil# 0.16 X10^3/uL; Eosinophils% 1.7 % (0-5); Hemoglobin 9.6 g/dL (12.0-15.0); Lymphocyte # 3.44 X10^3/ul (0.83-4.51); Lymphocyte % 35.5 % (19-41); Mean Corpuscular Hgb 30.9 pg (27.0-32.0); Mean Corpuscular Volume 96.5 fL (81-99); Mean Platelet Vol. 11.4 fl (6.2-12.0); Monocyte# 0.62 X10^3/uL; Monocyte% 6.4 % (0-10); NRBC Flagged by Analyzer 0 % (0-5); Neutrophil # 5.41 X10^3/uL (2.7-7.7); Neutrophil % 55.8 % (47-70); Platelet Count 165 K/mm3 (150-450); RBC Distribution Width CV 13.7 % (11.6-14.6); RBC Distribution Width SD 48.2 fl (35.1-43.9); Red Blood Count 3.11 M/mm3 (4.2-5.4); White Blood Count 9.7 K/mm3 (4.4-11.0)
[2024-10-07 08:40] LABS: Anion Gap 11 (5-15); BUN 69 mg/dL (4-19); BUN/Creat Ratio 30.5 RATIO (10-20); Calcium,Total 9.3 mg/dL (7.6-11.0); Carbon Dioxide 18.7 mmol/L (21.0-32.0); Chloride 108 mmol/L (98-108); Creatinine, Serum 2.26 mg/dL (0.70-1.20); EST Glomerular Filtration Rate 22 (>60); Glucose 119 mg/dL (70-99); Potassium 4.5 mmol/L (3.3-5.1); Sodium Level 138 mmol/L (133-145)
== END ==
LOC: OLS.WHLEAS 04:00
PROVIDERS: PCP Student in an Organized Health Care Education/Training Program; Referring Provider Internal Medicine; Visit Provider Internal Medicine
DX: I12.9 Hypertensive chronic kidney disease with stage 1 through stage 4 chronic kidney disease, or unspecified chronic kidney disease (principal); N18.9 Chronic kidney disease, unspecified; G31.83 Neurocognitive disorder with Lewy bodies
CPT/HCPCS: 36415; 80048; 85025

== ENCOUNTER → 2024-10-13 | Outpatient (REF) | payer MEDICARE, OTHER, SELFPAY ==
[2024-10-13 09:51] LABS: Anion Gap 9 (5-15); BUN 70 mg/dL (4-19); BUN/Creat Ratio 35.2 RATIO (10-20); Calcium,Total 9.3 mg/dL (7.6-11.0); Carbon Dioxide 15.7 mmol/L (21.0-32.0); Chloride 114 mmol/L (98-108); Creatinine, Serum 1.98 mg/dL (0.70-1.20); EST Glomerular Filtration Rate 26 (>60); Glucose 106 mg/dL (70-99); Potassium 4.6 mmol/L (3.3-5.1); Sodium Level 138 mmol/L (133-145)
[2024-10-14 04:01] LABS: Absolute Lymphocyte Count 3.37 X10^3/uL (0.83-4.51); Absolute Neutrophil Count 3.5 X10^3/uL (2.0-7.7); Basophil# 0.02 X10^3/uL; Basophil% 0.3 % (0-1); Eosinophil# 0.18 X10^3/uL; Eosinophils% 2.4 % (0-5); Hematocrit 27.7 % (37-47); Hemoglobin 8.9 g/dL (12.0-15.0); Lymphocyte # 3.37 X10^3/ul (0.83-4.51); Lymphocyte % 44.6 % (19-41); Mean Corp Hgb Conc 32.1 g/dL (32-36); Mean Corpuscular Hgb 30.9 pg (27.0-32.0); Mean Corpuscular Volume 96.2 fL (81-99); Mean Platelet Vol. 11.4 fl (6.2-12.0); Monocyte# 0.52 X10^3/uL; Monocyte% 6.9 % (0-10); NRBC Flagged by Analyzer 0 % (0-5); Neutrophil # 3.45 X10^3/uL (2.7-7.7); Neutrophil % 45.7 % (47-70); Platelet Count 161 K/mm3 (150-450); RBC Distribution Width CV 14.4 % (11.6-14.6); RBC Distribution Width SD 50.1 fl (35.1-43.9); Red Blood Count 2.88 M/mm3 (4.2-5.4); White Blood Count 7.6 K/mm3 (4.4-11.0)
[2024-10-14 09:14] LABS: Microalbumin,Random Urine < 12.0 mg/L (NO RANGE EST.); Microalbumin:Creatinine Ratio UNABLE TO CALCULATE mg/g CRE
== END ==
LOC: OLS.WHLEAS 05:00
PROVIDERS: PCP Student in an Organized Health Care Education/Training Program
DX: I12.9 Hypertensive chronic kidney disease with stage 1 through stage 4 chronic kidney disease, or unspecified chronic kidney disease (principal); N18.32 Chronic kidney disease, stage 3b
CPT/HCPCS: 36415; 80048; 82043; 82570; 85025